=== PATIENT | female | born 1935 | race Two or more races ===

== ENCOUNTER 2019-03-10 09:48 | Inpatient (IN) | payer SELFPAY ==
[2019-03-10] VITALS (17 sets, daily range): BP systolic 72–143; BP diastolic 34–80
[~2019-03-10] VITALS: Ht 152.4 cm; Wt 46.3 kg
[2019-03-10] MEDS ORDERED: Isovue-300 100ml vial INJ PRN (10:00)
--- NOTE | 2019-03-10 10:05 | NUR ---
ED Nurse Note: Pt came in due to upper abd. pain with N/V since this morning after eating a yogurt. Pt is lactose intolerant. Denies diarrhea. AAO x4, ambulates with assist. No respiratory distress. Moaning and restless d/t pain. Family member at the bed side. ER MD aware.
[2019-03-10] MEDS ORDERED: Morphine Sulfate 2mg/ml Inj(IV/IM USE ONLY) IVP ONE ×2 (10:15→10:30)
[2019-03-10 10:19] LABS: HEMATOCRIT 48.4 % (37.0-47.0); HEMOGLOBIN 15.9 G/DL (12.0-16.0); MEAN CORPUSCULAR VOLUME 90 FL (80-99); PLATELET COUNT 254 K/UL (150-450); RED BLOOD COUNT 5.36 M/UL (4.20-5.40); RED CELL DISTRIBUTION WIDTH 13.3 % (11.6-14.8); WHITE BLOOD COUNT 12.7 K/UL (4.8-10.8)
--- NOTE | 2019-03-10 10:26 | NUR ---
ED Nurse Note: Warm blankets provided. Dr Schrader at the bed side.
--- NOTE | 2019-03-10 10:27 | Emergency Room Report ---
History of Present Illness General Chief Complaint: Abdominal Pain Source: Patient, Family Member Present Illness HPI Patient states that she suddenly developed all over abdominal pain and an episode of nausea vomiting this morning around 7:30 AM after eating yogurt. She states that the pain is in her upper abdomen and severe. The pain is constant. She currently has no nausea. She denies chest pain or shortness of breath. She denies dysuria or hematuria. She states that yesterday she was in her normal state of health. She denies previous episodes of abdominal pain. She denies fever or chills. She has no other complaints. Allergies: Coded Allergies: No Known Allergies (Unverified , 03/10/19) Patient History Past Medical History: see triage record, DM, HTN Social History: Denies: smoking, alcohol use, drug use Reviewed Nursing Documentation: PMH: Agreed; PSxH: Agreed Nursing Documentation-PMH Past Medical History: No History, Except For Hx Hypertension: Yes Hx Diabetes: Yes Review of Systems All Other Systems: negative except mentioned in HPI Physical Exam Vital Signs Date Time Temp Pulse Resp B/P (MAP) Pulse Ox O2 Delivery O2 Flow Rate FiO2 03/10/19 09:55 97.7 87 16 125/77 (93) 94 Room Air Sp02 EP Interpretation: reviewed, normal General Appearance: no apparent distress, alert, GCS 15, non-toxic Head: normocephalic, atraumatic Eyes: bilateral eye normal inspection, bilateral eye PERRL ENT: hearing grossly normal, normal pharynx, no angioedema, normal voice Neck: full range of motion, supple/symm/no masses Respiratory: chest non-tender, lungs clear, normal breath sounds, no respiratory distress, no retraction, no accessory muscle use, speaking full sentences Cardiovascular #1: regular rate, rhythm, no edema Gastrointestinal: normal bowel sounds, no pulsatile mass, distended, guarding, rebound, tenderness - TTP diffusely, upper abdomen greater the lower abdomen. Rectal: deferred Musculoskeletal: back normal, gait/station normal, normal range of motion, non- tender Neurologic: alert, oriented x3, responsive, motor strength/tone normal, sensory intact, speech normal Psychiatric: judgement/insight normal, memory normal, mood/affect normal, no suicidal/homicidal ideation Skin: no rash, normal color Medical Decision Making Diagnostic Impression: Primary Impression: Peritonitis Additional Impression: Perforated abdominal viscus ER Course This patient is found to have findings on CT concerning for perforated viscus. Patient has free air in the region of the stomach. Most likely a perforated gastric ulcer. Patient was given broad-spectrum antibiotics and proton pump inhibitors and admitted to the ICU for surgical intervention. This patient is critically ill. This patient required complex medical decision- making, aggressive intervention, extensive laboratory workup and monitoring. Critical care time: 40 minutes. Laboratory Tests Test 03/10/19 10:00 03/10/19 10:05 Urine Color Pending Urine Appearance Pending Urine pH Pending Urine Specific [place] Pending Urine Protein Pending Urine Glucose (UA) Pending Urine Ketones Pending Urine Blood Pending Urine Nitrite Pending Urine Bilirubin Pending Urine Urobilinogen Pending Urine Leukocyte Esterase Pending Troponin I 0.000 ng/mL (0.000-0.056) White Blood Count 12.7 K/UL (4.8-10.8) H Red Blood Count 5.36 M/UL (4.20-5.40) Hemoglobin 15.9 G/DL (12.0-16.0) Hematocrit 48.4 % (37.0-47.0) H Mean Corpuscular Volume 90 FL (80-99) Mean Corpuscular Hemoglobin 29.6 PG (27.0-31.0) Mean Corpuscular Hemoglobin Concent 32.8 G/DL (32.0-36.0) Red Cell Distribution Width 13.3 % (11.6-14.8) Platelet Count 254 K/UL (150-450) Mean Platelet Volume 7.5 FL (6.5-10.1) Neutrophils (%) (Auto) % (45.0-75.0) Lymphocytes (%) (Auto) % (20.0-45.0) Monocytes (%) (Auto) % (1.0-10.0) Eosinophils (%) (Auto) % (0.0-3.0) Basophils (%) (Auto) % (0.0-2.0) Differential Total Cells Counted 100 Neutrophils % (Manual) 62 % (45-75) Lymphocytes % (Manual) 13 % (20-45) L Monocytes % (Manual) 3 % (1-10) Eosinophils % (Manual) 0 % (0-3) Basophils % (Manual) 0 % (0-2) Band Neutrophils 22 % (0-8) H Platelet Estimate Adequate Platelet Morphology Normal Red Blood Cell Morphology Normal Sodium Level 137 MMOL/L (136-145) Potassium Level 3.1 MMOL/L (3.5-5.1) L Chloride Level 94 MMOL/L (98-107) L Carbon Dioxide Level 29 MMOL/L (21-32) Anion Gap 14 mmol/L (5-15) Blood Urea Nitrogen 49 mg/dL (7-18) H Creatinine 1.3 MG/DL (0.55-1.30) Estimate Glomerular Filtration Rate mL/min (>60) Glucose Level 353 MG/DL (74-106) H Calcium Level 9.6 MG/DL (8.5-10.1) Total Bilirubin 0.6 MG/DL (0.2-1.0) Aspartate Amino Transferase (AST) 70 U/L (15-37) H Alanine Aminotransferase (ALT) 94 U/L (12-78) H Alkaline Phosphatase 170 U/L (46-116) H Total Protein 6.7 G/DL (6.4-8.2) Albumin 3.6 G/DL (3.4-5.0) Globulin 3.1 g/dL Albumin/Globulin Ratio 1.2 (1.0-2.7) Lipase 80 U/L (73-393) EKG Diagnostic Results Rate: normal Rhythm: NSR ST Segments: no acute changes Rhythm Strip Diag. Results EP Interpretation: yes Rate: 70's Rhythm: NSR, no PVC's, no ectopy CT/MRI/US Diagnostic Results CT/MRI/US Diagnostic Results : Imaging Test Ordered: CT abd/pelvis Impression mpression: Free intraperitoneal gas. Etiology not completely certain, but gas within and extending from the anterior gastric antral wall is suspicious for a perforated gastric ulcer. Perforated descending colon diverticulitis also possible but deemed much less likely. Free intraperitoneal fluid, presumably related to the above Fatty liver Basilar pulmonary parenchymal groundglass opacities. This could indicate pulmonary edema, among other possibilities Subcentimeter low-attenuation renal lesions, too small to characterize, most likely benign simple cyst. 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
[2019-03-10 10:35] LABS: ANION GAP 14 mmol/L (5-15); BLOOD UREA NITROGEN 49 mg/dL (7-18); CALCIUM 9.6 MG/DL (8.5-10.1); CARBON DIOXIDE 29 MMOL/L (21-32); CHLORIDE 94 MMOL/L (98-107); CREATININE 1.3 MG/DL (0.55-1.30); POTASSIUM 3.1 MMOL/L (3.5-5.1); SODIUM 137 MMOL/L (136-145)
[2019-03-10 10:39] LABS: ALANINE AMINOTRANSFERASE 94 U/L (12-78); ALBUMIN 3.6 G/DL (3.4-5.0); ALBUMIN/GLOBULIN RATIO 1.2 (1.0-2.7); ALKALINE PHOSPHATASE 170 U/L (46-116); ASPARTATE AMINO TRANSFERASE 70 U/L (15-37); BILIRUBIN,TOTAL 0.6 MG/DL (0.2-1.0)
--- NOTE | 2019-03-10 10:58 | NUR ---
ED Nurse Note: Pt unable to urinate at this time. Taken to CT VSS.
--- NOTE | 2019-03-10 11:14 | NUR ---
ED Nurse Note: Pt came back from CT. VSS.
[2019-03-10] MEDS ORDERED: Pantoprazole 80 MG in NS 250 ML IV ONE (11:45)
[2019-03-10] MEDS ORDERED: Pantoprazole Inj IVP ONE (11:45)
[2019-03-10] MEDS ORDERED: Piperacillin/Tazobactam 4.5 GM in NS 110 ML IVPB ONE (11:45)
--- NOTE | 2019-03-10 11:52 | Diagnostic Imaging Report ---
Clinical Indication: Abdominal pain Technique: No oral contrast utilized, per emergency room physician request IV administration nonionic contrast. Venous phase spiral acquisition obtained through the abdomen and pelvis. Multiplanar reconstructions were generated. Total dose length product 550.12 mGycm. CTDIvol(s) 11.42 mGy. Dose reduction achieved using automated exposure control Comparison: none Findings: There is abundant free intraperitoneal gas present. Gas is also seen within the mesenteric root There is also small amount of free intraperitoneal fluid. There is suggestion of a mural defect in the anterior gastric antral wall, and there is gas within the fat immediately adjacent. The duodenum appears unremarkable. There is some infiltration of the perigastric fat. However, there is also infiltration of the pericolonic fat of the ascending colon and there is an ascending colon diverticulum noted. The appendix is normal. No small bowel distention. No loculated fluid collections are evident. The liver is mildly hypoattenuating, consistent with fatty change. No focal abnormality. Gallbladder, bile ducts, pancreas, spleen, adrenals are unremarkable. The kidneys demonstrate multiple subcentimeter low-attenuation lesions which are too small to characterize. No renal or ureteral calculi, hydronephrosis, or hydroureter. No retroperitoneal or mesenteric mass or adenopathy. No pelvic mass or adenopathy. Uterus and adnexal structures appear unremarkable. There is a left hip prosthesis. This results in streak artifact which could obscure pathology in the region. The included lung bases demonstrate groundglass opacities as well as some atelectatic changes. A calcified granuloma is seen in the left costophrenic sulcus. The bones are unremarkable except for degenerative spondylosis changes. Impression: Free intraperitoneal gas. Etiology not completely certain, but gas within and extending from the anterior gastric antral wall is suspicious for a perforated gastric ulcer. Perforated descending colon diverticulitis also possible but deemed much less likely. Free intraperitoneal fluid, presumably related to the above Fatty liver Basilar pulmonary parenchymal groundglass opacities. This could indicate pulmonary edema, among other possibilities Subcentimeter low-attenuation renal lesions, too small to characterize, most likely benign simple cyst. 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 Reyes at the time of interpretation The CT scanner at [facility] is accredited by the [employer] and the scans are performed using protocols designed to limit radiation exposure to as low as reasonably achievable to attain images of sufficient resolution adequate for diagnostic evaluation.
[2019-03-10 12:35] LABS: APPEARANCE,URINE CLEAR; BILIRUBIN, URINE NEGATIVE (NEGATIVE); COLOR,URINE PALE YELLOW; GLUCOSE, URINE (UA) 4+ (NEGATIVE); KETONES,URINE NEGATIVE (NEGATIVE); LEUKOCYTE ESTERASE ,URINE NEGATIVE (NEGATIVE); NITRITE,URINE NEGATIVE (NEGATIVE); PH,URINE 5 (4.5-8.0); PROTEIN,URINE 1+ (NEGATIVE); UROBILINOGEN,URINE NORMAL MG/DL (0.0-1.0)
[2019-03-10] MEDS ORDERED: Bacitracin 50000 Units Vial ONE ×2 (12:51→17:16)
[2019-03-10] MEDS ORDERED: NeoSporin Gu Irrig 1ml Amp IRRIG ONE (12:51)
[2019-03-10] MEDS ORDERED: Rocuronium Bromide 50mg/5ml Inj IV ONE (12:53)
[2019-03-10] MEDS ORDERED: LR 1000ml 1,000 ML IVLG SCH (12:57)
--- NOTE | 2019-03-10 12:59 | Anethesia Preoperative Eval ---
Anesthesia Pre-op PMH/ROS General Date of Evaluation: Mar 10, 2019 Time of Evaluation: 14:11 Anesthesiologist: Haider ASA Score: ASA 3 - Emergency Mallampati Score Class I : Soft palate, uvula, fauces, pillars visible Class II: Soft palate, uvula, fauces visible Class III: Soft palate, base of uvula visible Class IV: Only hard plate visible Mallampati Classification: Class II Surgeon: Domenic Diagnosis: Perforated Viscus Surgical Procedure: Exploratory Laparotomy, Repair Viscus Anesthesia History: none Family History: no anesthesia problems Allergies: Coded Allergies: No Known Allergies (Unverified , 03/10/19) Medications: see eMAR Patient NPO?: Yes Past Medical History Cardiovascular: Reports: HTN Gastrointestinal/Genitourinary: Reports: other - Fatty Liver Endocrine: Reports: DM Anesthesia Pre-op Phys. Exam Physician Exam Last Vital Signs Date Time Temp Pulse Resp B/P (MAP) Pulse Ox O2 Delivery O2 Flow Rate FiO2 03/10/19 10:39 97.7 03/10/19 10:01 77 21 143/77 94 Room Air Constitutional: NAD Neurologic: CN 2-12 intact Cardiovascular: RRR Respiratory: CTA Gastrointestinal: S/NT/ND Airway Exam Mallampati Score: Class II MO: limited ROM: limited Teeth: missing, intact Anesthesia Pre-op A/P Labs Hematology Test 03/10/19 10:05 White Blood Count 12.7 K/UL (4.8-10.8) H Red Blood Count 5.36 M/UL (4.20-5.40) Hemoglobin 15.9 G/DL (12.0-16.0) Hematocrit 48.4 % (37.0-47.0) H Mean Corpuscular Volume 90 FL (80-99) Mean Corpuscular Hemoglobin 29.6 PG (27.0-31.0) Mean Corpuscular Hemoglobin Concent 32.8 G/DL (32.0-36.0) Red Cell Distribution Width 13.3 % (11.6-14.8) Platelet Count 254 K/UL (150-450) Mean Platelet Volume 7.5 FL (6.5-10.1) Neutrophils (%) (Auto) % (45.0-75.0) Lymphocytes (%) (Auto) % (20.0-45.0) Monocytes (%) (Auto) % (1.0-10.0) Eosinophils (%) (Auto) % (0.0-3.0) Basophils (%) (Auto) % (0.0-2.0) Differential Total Cells Counted 100 Neutrophils % (Manual) 62 % (45-75) Lymphocytes % (Manual) 13 % (20-45) L Monocytes % (Manual) 3 % (1-10) Eosinophils % (Manual) 0 % (0-3) Basophils % (Manual) 0 % (0-2) Band Neutrophils 22 % (0-8) H Platelet Estimate Adequate Platelet Morphology Normal Red Blood Cell Morphology Normal Chemistry Test 03/10/19 10:00 03/10/19 10:05 Troponin I 0.000 ng/mL (0.000-0.056) Sodium Level 137 MMOL/L (136-145) Potassium Level 3.1 MMOL/L (3.5-5.1) L Chloride Level 94 MMOL/L (98-107) L Carbon Dioxide Level 29 MMOL/L (21-32) Anion Gap 14 mmol/L (5-15) Blood Urea Nitrogen 49 mg/dL (7-18) H Creatinine 1.3 MG/DL (0.55-1.30) Estimat Glomerular Filtration Rate mL/min (>60) Glucose Level 353 MG/DL (74-106) H Calcium Level 9.6 MG/DL (8.5-10.1) Total Bilirubin 0.6 MG/DL (0.2-1.0) Aspartate Amino Transf (AST/SGOT) 70 U/L (15-37) H Alanine Aminotransferase (ALT/SGPT) 94 U/L (12-78) H Alkaline Phosphatase 170 U/L (46-116) H Total Protein 6.7 G/DL (6.4-8.2) Albumin 3.6 G/DL (3.4-5.0) Globulin 3.1 g/dL Albumin/Globulin Ratio 1.2 (1.0-2.7) Lipase 80 U/L (73-393) Risk Assessment & Plan Assessment: ASA 3E Plan: GA, SED, GlideScope Go Status Change Before Surgery: No Pre-Antibiotics Dru Gram Ancef IV Given Within 1 Hr of Incision: Yes Time Given: 14:31 Austyn Maloney MD Mar 10, 2019 12:59
[2019-03-10] MEDS ORDERED: LORazepam Inj 2mg/ml 1ml IV PRN (13:00)
[2019-03-10] MEDS ORDERED: fentaNYL 100 mcg/2 mL IV PRN (13:00)
[2019-03-10] MEDS ORDERED: Meperidine 50mg/ml Inj(FOR RIGORS ONLY) IVP PRN (13:00)
[2019-03-10] MEDS ORDERED: oxyCODONE HCL/Acetaminophen 5/325mg ORAL PRN (13:00)
[2019-03-10] MEDS ORDERED: Labetalol 5mg/ml 20ml vial IV PRN (13:00)
[2019-03-10] MEDS ORDERED: Atropine Sulfate 0.4mg/ml inj IVP PRN (13:00)
[2019-03-10] MEDS ORDERED: HYDROcodone/Acetamin 7.5/325 tab ORAL PRN (13:00)
[2019-03-10] MEDS ORDERED: Acetaminophen (Non formulary) 100 ML IV ONE (13:00)
[2019-03-10] MEDS ORDERED: Midazolam 2mg/2ml Inj IVP PRN (13:00)
[2019-03-10] MEDS ORDERED: Metoclopramide 10mg/2ml Inj IVP PRN (13:00)
[2019-03-10] MEDS ORDERED: DiphenhydrAMINE 50mg/ml Inj IVP PRN (13:00)
[2019-03-10] MEDS ORDERED: HYDROcodone/Acetamin 5/325 tab ORAL PRN (13:00)
[2019-03-10] MEDS ORDERED: Ketorolac 30mg Inj IV PRN ×2 (13:00)
[2019-03-10] MEDS ORDERED: Hydromorphone 0.5mg/0.5ml inj IVP PRN (13:00)
[2019-03-10] MEDS ORDERED: Morphine Sulfate 4mg/ml Inj (IV USE ONLY) IVP ONE (13:15)
[2019-03-10] MEDS ORDERED: Miralax 17gm pkt ORAL PRN (13:15)
[2019-03-10] MEDS ORDERED: Albuterol/Ipratropium 3ml neb HHN PRN (13:15)
--- NOTE | 2019-03-10 13:15 | NUR ---
ED Nurse Note: Pt's family aware of hospital admission. Son took all belongings including pt's earrings.
[2019-03-10] MEDS ORDERED: Lidocaine 1% Plain 30 ml INJ ONE (13:17)
[2019-03-10] MEDS ORDERED: Lidocaine 1% MPF 10mg/ml 5ml ONE (13:17)
[2019-03-10] MEDS ORDERED: Sodium Chloride 10ml vial INJ ONE (13:17)
[2019-03-10] MEDS ORDERED: fentaNYL 100 mcg/2 mL IV ONE (13:24)
[2019-03-10] MEDS ORDERED: Midazolam 2mg/2ml Inj ONE (13:25)
--- NOTE | 2019-03-10 13:25 | Pulmonolgy Critical Care Note ---
Critical Care - Asmt/Plan Problems: (1) Septic shock (2) Perforated abdominal viscus Respiratory: adjust tidal volume, adjust FIO2, CXR, ABG Cardiac: stop pressors, continue to monitor HR/BP Renal: keep IV fluid, check electrolytes Infectious Disease: continue antibiotics Gastrointestinal: continue feedings/current rate, hold feedings Endocrine: monitor blood sugar, continue sliding scale insulin Hematologic: monitor H/H, transfuse if hgb<8.5 Neurologic: PRN Ativan, keep patient comfortable Prophylaxis: Protonix Notes Reviewed: cardio Discussed with: nurses, consultants, child welfare caseworkermanager distribution center - Objective Last 24 Hour Vital Signs Date Time Temp Pulse Resp B/P (MAP) Pulse Ox O2 Delivery O2 Flow Rate FiO2 03/10/19 10:39 97.7 03/10/19 10:01 97.7 77 21 143/77 94 Room Air 03/10/19 09:57 77 21 Room Air 03/10/19 09:55 97.7 87 16 125/77 (93) 94 Room Air Status: awake Condition: critical Lungs: chest wall tender Heart: HR/BP unstable Abdomen: soft, active bowel sounds Extremities: no C/C/E Critical Care - Subjective ROS Limited/Unobtainable: Yes Interval Events: 84 year old female presented to ER with CC of abdominal pain and was found to have perforated viscous with free air in abdominal cavity. Condition: critical Labs: Laboratory Tests Test 03/10/19 10:00 03/10/19 10:05 Urine Color Pale yellow Urine Appearance Clear Urine pH 5 (4.5-8.0) Urine Specific [place] 1.010 (1.005-1.035) Urine Protein 1+ (NEGATIVE) H Urine Glucose (UA) 4+ (NEGATIVE) H Urine Ketones Negative (NEGATIVE) Urine Blood Negative (NEGATIVE) Urine Nitrite Negative (NEGATIVE) Urine Bilirubin Negative (NEGATIVE) Urine Urobilinogen Normal MG/DL (0.0-1.0) Urine Leukocyte Esterase Negative (NEGATIVE) Urine RBC 0 /HPF (0 - 2) Urine WBC 0-2 /HPF (0 - 2) Urine Squamous Epithelial Cells None /LPF (NONE/OCC) Urine Bacteria None /HPF (NONE) Urine Hyaline Casts 0-2 /LPF (NONE) H Troponin I 0.000 ng/mL (0.000-0.056) White Blood Count 12.7 K/UL (4.8-10.8) H Red Blood Count 5.36 M/UL (4.20-5.40) Hemoglobin 15.9 G/DL (12.0-16.0) Hematocrit 48.4 % (37.0-47.0) H Mean Corpuscular Volume 90 FL (80-99) Mean Corpuscular Hemoglobin 29.6 PG (27.0-31.0) Mean Corpuscular Hemoglobin Concent 32.8 G/DL (32.0-36.0) Red Cell Distribution Width 13.3 % (11.6-14.8) Platelet Count 254 K/UL (150-450) Mean Platelet Volume 7.5 FL (6.5-10.1) Neutrophils (%) (Auto) % (45.0-75.0) Lymphocytes (%) (Auto) % (20.0-45.0) Monocytes (%) (Auto) % (1.0-10.0) Eosinophils (%) (Auto) % (0.0-3.0) Basophils (%) (Auto) % (0.0-2.0) Differential Total Cells Counted 100 Neutrophils % (Manual) 62 % (45-75) Lymphocytes % (Manual) 13 % (20-45) L Monocytes % (Manual) 3 % (1-10) Eosinophils % (Manual) 0 % (0-3) Basophils % (Manual) 0 % (0-2) Band Neutrophils 22 % (0-8) H Platelet Estimate Adequate Platelet Morphology Normal Red Blood Cell Morphology Normal Sodium Level 137 MMOL/L (136-145) Potassium Level 3.1 MMOL/L (3.5-5.1) L Chloride Level 94 MMOL/L (98-107) L Carbon Dioxide Level 29 MMOL/L (21-32) Anion Gap 14 mmol/L (5-15) Blood Urea Nitrogen 49 mg/dL (7-18) H Creatinine 1.3 MG/DL (0.55-1.30) Estimat Glomerular Filtration Rate mL/min (>60) Glucose Level 353 MG/DL (74-106) H Calcium Level 9.6 MG/DL (8.5-10.1) Total Bilirubin 0.6 MG/DL (0.2-1.0) Aspartate Amino Transf (AST/SGOT) 70 U/L (15-37) H Alanine Aminotransferase (ALT/SGPT) 94 U/L (12-78) H Alkaline Phosphatase 170 U/L (46-116) H Total Protein 6.7 G/DL (6.4-8.2) Albumin 3.6 G/DL (3.4-5.0) Globulin 3.1 g/dL Albumin/Globulin Ratio 1.2 (1.0-2.7) Lipase 80 U/L (73-393) Bibiana Pennington MD Mar 10, 2019 13:25
[2019-03-10] MEDS ORDERED: Amikacin Rx to dose MISC PRN (13:30)
--- NOTE | 2019-03-10 13:33 | NUR ---
ED Nurse Note: Tried to call Report to ICU. Spoke to Pat and states that Andrea receiving RN unavailable at this time. ER charge nurse notified.
--- NOTE | 2019-03-10 13:37 | Immediate Post-Op Evaluation ---
Immediate Post-Op Evalulation Immediate Post-Op Evalulation Procedure: Exploratory Laparotomy, Repair Viscus Date of Evaluation: Mar 10, 2019 Time of Evaluation: 16:52 IV Fluids: 400 LR Blood Products: 500 Albumin Estimated Blood Loss: 75 Urinary Output: 0 Blood Pressure Systolic: 102 Blood Pressure Diastolic: 53 Pulse Rate: 89 Respiratory Rate: 12 - Vent O2 Sat by Pulse Oximetry: 100 Temperature (Fahrenheit): 97.6 Pain Score (1-10): 0 Nausea: No Vomiting: No Complications 0 Patient Status: reacts, no response, patent, ventilated, none Hydration Status: adequate Dru Gram Ancef IV Given Within 1 Hr of Incision: Yes Time Given: 14:31 Austyn Maloney MD Mar 10, 2019 13:37
--- NOTE | 2019-03-10 13:52 | NUR ---
ED Nurse Note: Report given to Grant MOON of OR. Son notified of pt's surgery.
[2019-03-10] MEDS ORDERED: LR 1000ml ONE (14:00)
[2019-03-10] MEDS ORDERED: Propofol 1,000mg/ 100ml btl IV ONE (14:00)
--- NOTE | 2019-03-10 14:21 | Pre-Procedure Note/Attestation ---
Pre-Procedure Note/Attestation Complete Prior to Procedure Planned Procedure: not applicable Procedure Narrative: exploratory laparotomy, possible bowel resection, possible ostomy Indications for Procedure Pre-Operative Diagnosis: perforated abdominal viscus Attestation I attest that I discussed the nature of the procedure; its benefits; risks and complications; and alternatives (and the risks and benefits of such alternatives ), prior to the procedure, with the patient (or the patient's legal home office representative). I attest that, if there was a reasonable possibility of needing a blood transfusion, the patient (or the patient's legal home office representative) was given the [facility] standardized written summary, pursuant to the [place] Blood Safety Act ([place] Health and Safety Code # 1645, as amended). I attest that I re-evaluated the patient just prior to the surgery and that there has been no change in the patient's H&P, except as documented below: Mike Sheth Mar 10, 2019 14:21
--- NOTE | 2019-03-10 14:24 | Consultation ---
History of Present Illness General Date patient seen: Mar 10, 2019 Reason for Hospitalization: Abdominal Pain Present Illness HPI 84F multiple medical comorbidities presented to ED with complaints of acute abdominal pain starting this morning with n/v. multiple medical comorbidities. prior has had abd discomfort for years but mild and intermittent. now with acute 10/[address] with perforated viscus. surgery called. patient seen in ED. plan for OR Allergies: Coded Allergies: No Known Allergies (Unverified , 03/10/19) Medication History Unable to Obtain Active Prescriptions or Reported Meds Patient History History Provided By: Patient, Family Member, Medical Record, PMD Healthcare decision maker Resuscitation status Advanced Directive on File Past Medical/Surgical History Past Medical/Surgical History: (1) Peritonitis (2) Perforated abdominal viscus Review of Systems Review of Symptoms General ROS: no weight loss or fever Psychological ROS: no depression or mood changes, no memory loss Ophthalmic ROS: no visual changes or eye irritation ENT ROS: no nasal congestion, hearing loss, dizziness Allergy and Immunology ROS: no allergic symptoms or urticaria Hematological and Lymphatic ROS: no swollen glands, unusual bleeding or bruising Endocrine ROS: no polyuria, polydipsia, weight changes, temperature intolerance Respiratory ROS: no cough, shortness of breath, or wheezing Cardiovascular ROS: no chest pain or dyspnea on exertion Gastrointestinal ROS: abdominal pain, no bright red blood in stool. Musculoskeletal ROS: no myalgias or arthralgias Neurological ROS: no TIA or stroke symptoms Dermatological ROS: no new or changing skin lesions, rashes or pruritis Physical Exam Physical Exam General appearance: alert, cooperative, no distress, appears stated age Head: Normocephalic, without obvious abnormality, atraumatic Eyes: conjunctivae/corneas clear. PERRL, EOM's intact. Fundi benign Throat: Lips, mucosa, and tongue normal. Teeth and gums normal Neck: supple, symmetrical, trachea midline, no adenopathy, thyroid: not enlarged, symmetric, no tenderness/mass/nodules, no carotid bruit and no JVD Lungs: clear to auscultation bilaterally Heart: regular rate and rhythm, S1, S2 normal, no murmur, click, rub or gallop Abdomen: soft, peritonitis with tender. Bowel sounds normal. No masses, no organomegaly Extremities: extremities normal, atraumatic, no cyanosis or edema Pulses: 2+ and symmetric Skin: Skin color, texture, turgor normal. No rashes or lesions Neurologic: Grossly normal Last 24 Hour Vital Signs Date Time Temp Pulse Resp B/P (MAP) Pulse Ox O2 Delivery O2 Flow Rate FiO2 03/10/19 14:05 98.4 81 20 135/70 95 Nasal Cannula 2.0 03/10/19 13:00 97.8 88 23 137/66 94 Nasal Cannula 2.0 03/10/19 12:00 97.7 87 17 139/80 95 Nasal Cannula 2.0 03/10/19 11:05 98.0 85 16 122/70 97 Nasal Cannula 2.0 03/10/19 10:55 98.4 03/10/19 10:55 98.4 03/10/19 10:39 97.7 03/10/19 10:01 97.7 77 21 143/77 94 Room Air 03/10/19 09:57 77 21 Room Air 03/10/19 09:55 97.7 87 16 125/77 (93) 94 Room Air Laboratory Tests Test 03/10/19 10:00 03/10/19 10:05 Urine Color Pale yellow Urine Appearance Clear Urine pH 5 (4.5-8.0) Urine Specific [place] 1.010 (1.005-1.035) Urine Protein 1+ (NEGATIVE) H Urine Glucose (UA) 4+ (NEGATIVE) H Urine Ketones Negative (NEGATIVE) Urine Blood Negative (NEGATIVE) Urine Nitrite Negative (NEGATIVE) Urine Bilirubin Negative (NEGATIVE) Urine Urobilinogen Normal MG/DL (0.0-1.0) Urine Leukocyte Esterase Negative (NEGATIVE) Urine RBC 0 /HPF (0 - 2) Urine WBC 0-2 /HPF (0 - 2) Urine Squamous Epithelial Cells None /LPF (NONE/OCC) Urine Bacteria None /HPF (NONE) Urine Hyaline Casts 0-2 /LPF (NONE) H Troponin I 0.000 ng/mL (0.000-0.056) White Blood Count 12.7 K/UL (4.8-10.8) H Red Blood Count 5.36 M/UL (4.20-5.40) Hemoglobin 15.9 G/DL (12.0-16.0) Hematocrit 48.4 % (37.0-47.0) H Mean Corpuscular Volume 90 FL (80-99) Mean Corpuscular Hemoglobin 29.6 PG (27.0-31.0) Mean Corpuscular Hemoglobin Concent 32.8 G/DL (32.0-36.0) Red Cell Distribution Width 13.3 % (11.6-14.8) Platelet Count 254 K/UL (150-450) Mean Platelet Volume 7.5 FL (6.5-10.1) Neutrophils (%) (Auto) % (45.0-75.0) Lymphocytes (%) (Auto) % (20.0-45.0) Monocytes (%) (Auto) % (1.0-10.0) Eosinophils (%) (Auto) % (0.0-3.0) Basophils (%) (Auto) % (0.0-2.0) Differential Total Cells Counted 100 Neutrophils % (Manual) 62 % (45-75) Lymphocytes % (Manual) 13 % (20-45) L Monocytes % (Manual) 3 % (1-10) Eosinophils % (Manual) 0 % (0-3) Basophils % (Manual) 0 % (0-2) Band Neutrophils 22 % (0-8) H Platelet Estimate Adequate Platelet Morphology Normal Red Blood Cell Morphology Normal Sodium Level 137 MMOL/L (136-145) Potassium Level 3.1 MMOL/L (3.5-5.1) L Chloride Level 94 MMOL/L (98-107) L Carbon Dioxide Level 29 MMOL/L (21-32) Anion Gap 14 mmol/L (5-15) Blood Urea Nitrogen 49 mg/dL (7-18) H Creatinine 1.3 MG/DL (0.55-1.30) Estimat Glomerular Filtration Rate mL/min (>60) Glucose Level 353 MG/DL (74-106) H Calcium Level 9.6 MG/DL (8.5-10.1) Total Bilirubin 0.6 MG/DL (0.2-1.0) Aspartate Amino Transf (AST/SGOT) 70 U/L (15-37) H Alanine Aminotransferase (ALT/SGPT) 94 U/L (12-78) H Alkaline Phosphatase 170 U/L (46-116) H Total Protein 6.7 G/DL (6.4-8.2) Albumin 3.6 G/DL (3.4-5.0) Globulin 3.1 g/dL Albumin/Globulin Ratio 1.2 (1.0-2.7) Lipase 80 U/L (73-393) Microbiology Date/Time Source Procedure Growth Status 03/10/19 13:00 Rectum Received Height (Feet): 5 Weight (Pounds): 120 Medications Current Medications Medications (Trade) Dose Ordered Sig/Shantelle Route PRN Reason Start Time Stop Time Status Last Admin Dose Admin Acetaminophen (Tylenol) 650 mg Q4H PRN ORAL fever 03/10/19 13:15 04/09/19 13:14 Acetaminophen/ Hydrocodone Bitart ([place] 5/325) 1 tab Q1H PRN ORAL Mild Pain (Pain Scale 1-3) 03/10/19 13:00 03/10/19 21:00 Acetaminophen/ Hydrocodone Bitart ([place] 7.5/325) 1 tab Q1H PRN ORAL Moderate Pain (Pain Scale 4-6) 03/10/19 13:00 03/10/19 21:00 Al Hydroxide/Mg Hydroxide (Mylanta) 15 ml Q1H PRN ORAL gi upset 03/10/19 13:00 03/10/19 21:00 Albuterol/ Ipratropium (Albuterol/ Ipratropium) 3 ml Q4H PRN HHN Shortness of Breath 03/10/19 13:15 03/15/19 13:14 Amikacin Protocol (Amikacin pharmacy to dose) 1 ea DAILY PRN MISC . 03/10/19 13:30 04/09/19 13:29 Amikacin Sulfate 400 mg/Sodium Chloride 111.6 ml @ 111.6 mls/ hr Q24H IV 03/11/19 01:00 03/18/19 00:59 Atropine Sulfate (Atropine 0.4mg/ ml) 0.5 mg Q5M PRN IVP HR<40 03/10/19 13:00 03/10/19 21:00 Diphenhydramine HCl (Benadryl) 25 mg Q15M PRN IVP Itching 03/10/19 13:00 03/10/19 21:00 Ertapenem 0.5 gm/ Sodium Chloride 55 ml @ 110 mls/hr Q24H IV 03/10/19 21:00 03/15/19 20:59 Fentanyl Citrate (Sublimaze 100 mcg/2 mL) 25 mcg Q10M PRN IV Moderate Pain (Pain Scale 4-6) 03/10/19 13:00 03/10/19 21:00 Heparin Sodium (Porcine) (Heparin 5000 units/ml) 5,000 units EVERY 12 HOURS SUBQ 03/10/19 21:00 04/09/19 20:59 Hydralazine HCl (Apresoline) 5 mg Q30M PRN IV SBP>160 / DBP>90 03/10/19 13:00 03/10/19 21:00 Hydromorphone HCl (Dilaudid) 0.5 mg Q15M PRN IVP Severe Pain (Pain Scale 7-10) 03/10/19 13:00 03/10/19 21:00 Iopamidol (Isovue-300 100ml) 100 ml NOW PRN INJ Radiology Procedure 03/10/19 10:00 Ketorolac Tromethamine (Toradol 30mg) 15 mg Q1H PRN IV Moderate Breakthru Pain (5-7) 03/10/19 13:00 03/10/19 21:00 Ketorolac Tromethamine (Toradol 30mg) 30 mg Q1H PRN IV Severe Breakthru Pain (>7) 03/10/19 13:00 03/10/19 21:00 Labetalol HCl (Normodyne) 5 mg Q10M PRN IV SBP>160 / DBP>90 03/10/19 13:00 03/10/19 21:00 Lactated Ringer's 1,000 ml @ 10 mls/hr Q24H IVLG 03/10/19 12:57 03/10/19 14:56 Lorazepam (Ativan 2mg/ml 1ml) 1 mg Q15M PRN IV For Anxiety 03/10/19 13:00 03/10/19 21:00 Meperidine HCl (Demerol) 25 mg Q5M PRN IVP Shivering.May repeat x 1 03/10/19 13:00 03/10/19 21:00 Metoclopramide HCl (Reglan) 10 mg Q1H PRN IVP Nausea & Vomiting 03/10/19 13:00 03/10/19 21:00 Midazolam HCl (Versed 2mg/2ml vial) 1 mg Q15M PRN IVP For Anxiety 03/10/19 13:00 03/10/19 21:00 Morphine Sulfate (Morphine Sulfate) 2 mg Q4H PRN IVP Severe Pain (Pain Scale 7-10) 03/10/19 13:15 03/17/19 13:14 Norepinephrine Bitartrate 4 mg/ Dextrose 254 ml @ 0 mls/hr Q24H IV 03/10/19 13:09 04/09/19 13:08 Ondansetron HCl (Zofran) 4 mg Q1H PRN IVP Nausea & Vomiting 03/10/19 13:00 03/10/19 21:00 Ondansetron HCl (Zofran) 4 mg Q6H PRN IVP Nausea & Vomiting 03/10/19 13:15 04/09/19 13:14 Oxycodone/ Acetaminophen (Percocet 5-325) 1 tab Q1H PRN ORAL Severe Pain (Pain Scale 7-10) 03/10/19 13:00 03/10/19 21:00 Pantoprazole (Protonix) 40 mg DAILY IVP 03/11/19 09:00 04/10/19 08:59 Pantoprazole 80 mg/Sodium Chloride 250 ml @ 25 mls/hr Q10H ONCE IV 03/10/19 11:45 03/10/19 21:44 03/10/19 11:58 Polyethylene Glycol (Miralax) 17 gm DAILYPRN PRN ORAL Constipation 03/10/19 13:15 04/09/19 13:14 Sodium Chloride 1,000 ml @ 100 mls/hr Q10H IVLG 03/10/19 13:16 04/09/19 13:15 Vancomycin HCl (Vanco rx to dose) 1 ea DAILY PRN MISC . 03/10/19 13:30 04/09/19 13:29 Vancomycin HCl 500 mg/Dextrose 110 ml @ 110 mls/hr Q24H IVPB 03/10/19 23:00 03/15/19 22:59 Assessment/Plan Problem List: (1) Peritonitis Assessment & Plan: 84F with perforated abdominal viscus likely gastric perforation based on CT findings labs as above exam with generalized abdominal peritonitis. npo iv fluids iv ABX to OR for exploration and repair discussed all findings and surgical plan with patient, sons, team. given age has high risk for surgery and comorbidities. full code as per family consent thank you ICD Codes: K65.9 - Peritonitis, unspecified SNOMED: 53914236 (2) Perforated abdominal viscus SNOMED: [id number] Mike Sheth Mar 10, 2019 14:24
[2019-03-10] MEDS ORDERED: NS Irrig 1000ml IRRIG ONE (15:07)
[2019-03-10] MEDS ORDERED: NS Irrig 4000ml IRRIG ONE (15:07)
[2019-03-10] MEDS ORDERED: Neostigmine 1mg/ml 10ml Inj ONE (15:13)
[2019-03-10] MEDS ORDERED: Glycopyrrolate 0.2mg/ml 1ml Vial ONE (15:13)
[2019-03-10] MEDS ORDERED: Flumazenil 0.1mg/ml 5ml Inj IV ONE (16:14)
--- NOTE | 2019-03-10 17:00 | Consultation ---
History of Present Illness General Date patient seen: Mar 10, 2019 Chief Complaint: Abdominal Pain Present Illness HPI 84 y/o F with hx of Dm2, HTN presented to ED on 03/10 with acute upper abdominal pain associated with nausea and vomiting. CT showed perforated viscus and patient was taken to OR. Denied CP, SOB, dysuria, hematuria, f/c upon admission. Allergies: Coded Allergies: No Known Allergies (Unverified , 03/10/19) Medication History Unable to Obtain Active Prescriptions or Reported Meds Patient History Healthcare decision maker Resuscitation status Advanced Directive on File Patient History Narrative Pmhx: as above Shx: Denies: smoking, alcohol use, drug use Fhx: non contributory Review of Systems All Other Systems: negative except mentioned in HPI Physical Exam Physical Exam Narrative General appearance: alert, cooperative, no distress, appears stated age Head: Normocephalic, without obvious abnormality, atraumatic Eyes: conjunctivae/corneas clear. PERRL, EOM's intact. Fundi benign Throat: Lips, mucosa, and tongue normal. Teeth and gums normal Neck: supple, symmetrical, trachea midline, no adenopathy, thyroid: not enlarged, symmetric, no tenderness/mass/nodules, no carotid bruit and no JVD Lungs: clear to auscultation bilaterally Heart: regular rate and rhythm, S1, S2 normal, no murmur, click, rub or gallop Abdomen: soft, peritonitis with tender. Bowel sounds normal. No masses, no organomegaly Extremities: extremities normal, atraumatic, no cyanosis or edema Pulses: 2+ and symmetric Skin: Skin color, texture, turgor normal. No rashes or lesions Neurologic: Grossly normal Last 24 Hour Vital Signs Date Time Temp Pulse Resp B/P (MAP) Pulse Ox O2 Delivery O2 Flow Rate FiO2 03/10/19 16:42 89 12 100 03/10/19 16:41 82 12 98 Mechanical Ventilator 40 03/10/19 16:36 83 12 40 03/10/19 14:05 98.4 81 20 135/70 95 Nasal Cannula 2.0 03/10/19 13:00 97.8 88 23 137/66 94 Nasal Cannula 2.0 03/10/19 12:00 97.7 87 17 139/80 95 Nasal Cannula 2.0 03/10/19 11:05 98.0 85 16 122/70 97 Nasal Cannula 2.0 03/10/19 10:55 98.4 03/10/19 10:55 98.4 03/10/19 10:39 97.7 03/10/19 10:01 97.7 77 21 143/77 94 Room Air 03/10/19 09:57 77 21 Room Air 03/10/19 09:55 97.7 87 16 125/77 (93) 94 Room Air Laboratory Tests Test 03/10/19 10:00 03/10/19 10:05 Urine Color Pale yellow Urine Appearance Clear Urine pH 5 (4.5-8.0) Urine Specific [place] 1.010 (1.005-1.035) Urine Protein 1+ (NEGATIVE) H Urine Glucose (UA) 4+ (NEGATIVE) H Urine Ketones Negative (NEGATIVE) Urine Blood Negative (NEGATIVE) Urine Nitrite Negative (NEGATIVE) Urine Bilirubin Negative (NEGATIVE) Urine Urobilinogen Normal MG/DL (0.0-1.0) Urine Leukocyte Esterase Negative (NEGATIVE) Urine RBC 0 /HPF (0 - 2) Urine WBC 0-2 /HPF (0 - 2) Urine Squamous Epithelial Cells None /LPF (NONE/OCC) Urine Bacteria None /HPF (NONE) Urine Hyaline Casts 0-2 /LPF (NONE) H Troponin I 0.000 ng/mL (0.000-0.056) White Blood Count 12.7 K/UL (4.8-10.8) H Red Blood Count 5.36 M/UL (4.20-5.40) Hemoglobin 15.9 G/DL (12.0-16.0) Hematocrit 48.4 % (37.0-47.0) H Mean Corpuscular Volume 90 FL (80-99) Mean Corpuscular Hemoglobin 29.6 PG (27.0-31.0) Mean Corpuscular Hemoglobin Concent 32.8 G/DL (32.0-36.0) Red Cell Distribution Width 13.3 % (11.6-14.8) Platelet Count 254 K/UL (150-450) Mean Platelet Volume 7.5 FL (6.5-10.1) Neutrophils (%) (Auto) % (45.0-75.0) Lymphocytes (%) (Auto) % (20.0-45.0) Monocytes (%) (Auto) % (1.0-10.0) Eosinophils (%) (Auto) % (0.0-3.0) Basophils (%) (Auto) % (0.0-2.0) Differential Total Cells Counted 100 Neutrophils % (Manual) 62 % (45-75) Lymphocytes % (Manual) 13 % (20-45) L Monocytes % (Manual) 3 % (1-10) Eosinophils % (Manual) 0 % (0-3) Basophils % (Manual) 0 % (0-2) Band Neutrophils 22 % (0-8) H Platelet Estimate Adequate Platelet Morphology Normal Red Blood Cell Morphology Normal Sodium Level 137 MMOL/L (136-145) Potassium Level 3.1 MMOL/L (3.5-5.1) L Chloride Level 94 MMOL/L (98-107) L Carbon Dioxide Level 29 MMOL/L (21-32) Anion Gap 14 mmol/L (5-15) Blood Urea Nitrogen 49 mg/dL (7-18) H Creatinine 1.3 MG/DL (0.55-1.30) Estimat Glomerular Filtration Rate mL/min (>60) Glucose Level 353 MG/DL (74-106) H Calcium Level 9.6 MG/DL (8.5-10.1) Total Bilirubin 0.6 MG/DL (0.2-1.0) Aspartate Amino Transf (AST/SGOT) 70 U/L (15-37) H Alanine Aminotransferase (ALT/SGPT) 94 U/L (12-78) H Alkaline Phosphatase 170 U/L (46-116) H Total Protein 6.7 G/DL (6.4-8.2) Albumin 3.6 G/DL (3.4-5.0) Globulin 3.1 g/dL Albumin/Globulin Ratio 1.2 (1.0-2.7) Lipase 80 U/L (73-393) Microbiology Date/Time Source Procedure Growth Status 03/10/19 13:00 Rectum Received Height (Feet): 5 Height (Inches): 0.00 Weight (Pounds): 120 Medications Current Medications Medications (Trade) Dose Ordered Sig/Shantelle Route PRN Reason Start Time Stop Time Status Last Admin Dose Admin Acetaminophen (Tylenol) 650 mg Q4H PRN ORAL fever 03/10/19 13:15 04/09/19 13:14 Acetaminophen/ Hydrocodone Bitart ([place] 5/325) 1 tab Q1H PRN ORAL Mild Pain (Pain Scale 1-3) 03/10/19 13:00 03/10/19 21:00 Acetaminophen/ Hydrocodone Bitart ([place] 7.5/325) 1 tab Q1H PRN ORAL Moderate Pain (Pain Scale 4-6) 03/10/19 13:00 03/10/19 21:00 Al Hydroxide/Mg Hydroxide (Mylanta) 15 ml Q1H PRN ORAL gi upset 03/10/19 13:00 03/10/19 21:00 Albuterol/ Ipratropium (Albuterol/ Ipratropium) 3 ml Q4H PRN HHN Shortness of Breath 03/10/19 13:15 03/15/19 13:14 Amikacin Protocol (Amikacin pharmacy to dose) 1 ea DAILY PRN MISC . 03/10/19 13:30 04/09/19 13:29 Amikacin Sulfate 400 mg/Sodium Chloride 111.6 ml @ 111.6 mls/ hr Q24H IV 03/11/19 01:00 03/18/19 00:59 Atropine Sulfate (Atropine 0.4mg/ ml) 0.5 mg Q5M PRN IVP HR<40 03/10/19 13:00 03/10/19 21:00 Diphenhydramine HCl (Benadryl) 25 mg Q15M PRN IVP Itching 03/10/19 13:00 03/10/19 21:00 Ertapenem 0.5 gm/ Sodium Chloride 55 ml @ 110 mls/hr Q24H IV 03/10/19 21:00 03/15/19 20:59 Fentanyl Citrate (Sublimaze 100 mcg/2 mL) 25 mcg Q10M PRN IV Moderate Pain (Pain Scale 4-6) 03/10/19 13:00 03/10/19 21:00 Heparin Sodium (Porcine) (Heparin 5000 units/ml) 5,000 units EVERY 12 HOURS SUBQ 03/10/19 21:00 04/09/19 20:59 Hydralazine HCl (Apresoline) 5 mg Q30M PRN IV SBP>160 / DBP>90 03/10/19 13:00 03/10/19 21:00 Hydromorphone HCl (Dilaudid) 0.5 mg Q15M PRN IVP Severe Pain (Pain Scale 7-10) 03/10/19 13:00 03/10/19 21:00 Iopamidol (Isovue-300 100ml) 100 ml NOW PRN INJ Radiology Procedure 03/10/19 10:00 Ketorolac Tromethamine (Toradol 30mg) 15 mg Q1H PRN IV Moderate Breakthru Pain (5-7) 03/10/19 13:00 03/10/19 21:00 Ketorolac Tromethamine (Toradol 30mg) 30 mg Q1H PRN IV Severe Breakthru Pain (>7) 03/10/19 13:00 03/10/19 21:00 Labetalol HCl (Normodyne) 5 mg Q10M PRN IV SBP>160 / DBP>90 03/10/19 13:00 03/10/19 21:00 Lorazepam (Ativan 2mg/ml 1ml) 1 mg Q15M PRN IV For Anxiety 03/10/19 13:00 03/10/19 21:00 Meperidine HCl (Demerol) 25 mg Q5M PRN IVP Shivering.May repeat x 1 03/10/19 13:00 03/10/19 21:00 Metoclopramide HCl (Reglan) 10 mg Q1H PRN IVP Nausea & Vomiting 03/10/19 13:00 03/10/19 21:00 Midazolam HCl (Versed 2mg/2ml vial) 1 mg Q15M PRN IVP For Anxiety 03/10/19 13:00 03/10/19 21:00 Morphine Sulfate (Morphine Sulfate) 2 mg Q4H PRN IVP Severe Pain (Pain Scale 7-10) 03/10/19 13:15 03/17/19 13:14 Norepinephrine Bitartrate 4 mg/ Dextrose 254 ml @ 0 mls/hr Q24H IV 03/10/19 13:09 04/09/19 13:08 Ondansetron HCl (Zofran) 4 mg Q1H PRN IVP Nausea & Vomiting 03/10/19 13:00 03/10/19 21:00 Ondansetron HCl (Zofran) 4 mg Q6H PRN IVP Nausea & Vomiting 03/10/19 13:15 04/09/19 13:14 Oxycodone/ Acetaminophen (Percocet 5-325) 1 tab Q1H PRN ORAL Severe Pain (Pain Scale 7-10) 03/10/19 13:00 03/10/19 21:00 Pantoprazole (Protonix) 40 mg DAILY IVP 03/11/19 09:00 04/10/19 08:59 Pantoprazole 80 mg/Sodium Chloride 250 ml @ 25 mls/hr Q10H ONCE IV 03/10/19 11:45 03/10/19 21:44 03/10/19 11:58 Polyethylene Glycol (Miralax) 17 gm DAILYPRN PRN ORAL Constipation 03/10/19 13:15 04/09/19 13:14 Sodium Chloride 1,000 ml @ 100 mls/hr Q10H IVLG 03/10/19 13:16 04/09/19 13:15 Vancomycin HCl (Vanco rx to dose) 1 ea DAILY PRN MISC . 03/10/19 13:30 04/09/19 13:29 Vancomycin HCl 500 mg/Dextrose 110 ml @ 110 mls/hr Q24H IVPB 03/10/19 23:00 03/15/19 22:59 Assessment/Plan Assessment/Plan: Abx: IV Vancomycin 03/10- Zosyn x1 03/10 IV Amikacin 03/10- Ertapenem 03/10- Ancef x1 03/10 Assessment: Perforated viscus -03/10 SP 03/10 SP Exploratory Laparotomy, Repair Viscus -03/10 CT abd/p: Free intraperitoneal gas. Etiology not completely certain, but gas within and extending from the anterior gastric antral wall is suspicious for a perforated gastric ulcer. Perforated descending colon diverticulitis also possible but deemed much less likely. Free intraperitoneal fluid, presumably related to the above. Fatty liver. Basilar pulmonary parenchymal groundglass opacities. This could indicate pulmonary edema, among other possibilities. Subcentimeter low-attenuation renal lesions, too small to characterize, most likely benign simple cyst. No further follow-up necessary. 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 Afebrile Mild leukocytosis -u/a neg VDRF, post-op DARRON Dm2 HTN Plan: -D/c IV Vancomycin, Amikcin, Ertapenem #1 -COntinue Zosyn #1 periop -f/u cx -Monitor CBC/CMP, temperatures -ICU/ETT care -Sx f/u -wound care per surgical team -aspiration precautions Thank you for this consultation. Will continue to follow along with you. Discussed with Janette Zhu M.D. Mar 10, 2019 17:00
--- NOTE | 2019-03-10 17:15 | NUR ---
NURSE NOTES: Patient placed in room 246-H from surgery room, patient has under anesthesia, is intubated with ventilator on AC 16, TV: 400, FIo2: 40% peep of 5 saturating at 95-98% with no distress noted, has a abdominal pad covering surgical wound with no oozing noted, NG-tube placed by Dr. Sheth and ordered to have to low intermittent suction, patient has a Zaragoza with light straw urine draining.
--- NOTE | 2019-03-10 17:34 | History & Physical ---
History and Physical History & Physicial Dictated for Int Med - Dr Silva no. [id number]. Zen Paige MD Mar 10, 2019 17:34
--- NOTE | 2019-03-10 17:45 | NUR ---
NURSE NOTES: Dr. Paige at the bedside and assessed patient, no verbal orders given at this time.
--- NOTE | 2019-03-10 18:00 | NUR ---
NURSE NOTES: Dr. Sheth at the bedside ordered to keep NG -tube on low intermittent suction and NPO, absolutely no medications to be given by NG-tube.
--- NOTE | 2019-03-10 18:22 | Brief Operative Note ---
Immediate Post Operative Note Operative Note Pre-op Diagnosis: perforated abdominal viscus Procedure: ex lap with imelda patch, washout, omentectomy Post-op Diagnosis: perforated prepyloric gastric ulcer Surgeon: frank Anesthesiologist: emani Anesthesia: general Specimen: yes Complications: none Condition: stable Fluids: see records Estimated Blood Loss: minimal Drains: none Implant(s) used?: No Mike Sheth Mar 10, 2019 18:22
[2019-03-10] MEDS ORDERED: Acetaminophen 650 MG SUPP RECTAL PRN (18:30)
--- NOTE | 2019-03-10 18:31 | History and Physical Report ---
DATE OF ADMISSION: 03/10/2019 CHIEF COMPLAINT: The patient is an 84-year-old female, who presents with a chief complaint of abdominal pain, nausea, and vomiting. HISTORY OF PRESENT ILLNESS: Began early this morning, after the patient ate yogurt. The patient began to experience severe abdominal pain. The patient herself is intubated in the intensive care unit. Much of the history and physical is taken from the patient's chart. The patient developed sudden abdominal pain this morning approximately 7:30 a.m. after eating yogurt. Pain was 10/10 in intensity. It was localized to the upper abdomen. The patient also had nausea and vomiting. The patient presented to [place] emergency room. A CT scan of the abdomen revealed free air. The patient was admitted with perforated abdominal viscus. REVIEW OF SYSTEMS: Unable to assess secondary to the patient's mental status. PAST MEDICAL HISTORY: Significant for: 1. Hypertension. 2. Diabetes. PAST SURGICAL HISTORY: Unknown. CURRENT MEDICATIONS: Unknown. ALLERGIES: No known drug allergies. SOCIAL HISTORY: The patient is single. The patient denies tobacco or alcohol use. PHYSICAL EXAMINATION: VITAL SIGNS: Temperature 97.7, respirations 16, pulse 87, blood pressure 125/77. GENERAL: The patient is a well developed, well nourished female who is intubated and sedated. HEENT: Eyes, pupils equal and responsive to light and accommodation. Extraocular movements are intact. NECK: Supple without lymphadenopathy. CHEST: Few diffuse wheezes bilaterally. Otherwise, without wheezes or rales. CARDIOVASCULAR: Regular rhythm rate. S1-S2 are normal without murmurs, rubs, or gallops. ABDOMEN: Soft, nontender with decreased bowel sounds. No evidence of hepatosplenomegaly. Currently, no rebound or guarding noted. EXTREMITIES: Negative for clubbing, cyanosis, edema. RECTAL/GENITAL: Not performed. NEUROLOGIC: Cranial nerves II through XII are grossly intact without focal deficits. LABORATORY STUDIES: WBC 12.7, hemoglobin 15.9, hematocrit 48.4, platelets 254,000. Sodium 137, potassium 3.1, chloride 94, CO2 29, BUN 49, creatinine 1.3, glucose 353,000. AST elevated at 70, ALT elevated at 94, alkaline phosphatase elevated 170. CT scan of the abdomen, free intraperitoneal gas and intraperitoneal fluid. Differential includes perforated diverticulitis versus perforated gastric ulcer. ASSESSMENT: This is an 84-year-old female. 1. Perforated abdominal viscus. 2. Abdominal pain. 3. Nausea with vomiting. 4. Diabetes type 2. 5. Hypertension. TREATMENT: 1. Perforated abdominal viscus. A General Surgery consultation has been obtained with Dr. Sheth. The patient is scheduled to undergo emergent exploratory laparotomy. We will follow recommendations of General Surgery. 2. Diabetes type 2. NovoLog sliding scale has been instituted. 3. Hypertension. The patient is currently hypotensive. 4. Respiratory failure. The patient is currently intubated in the intensive care unit. A Pulmonary consultation has been obtained with Dr. Bibiana Pennington. Zen Paige M.D. DR: JOSEPH JOB#: [id number] CC:
[2019-03-10] MEDS ORDERED: Morphine Sulfate 2mg/ml Inj(IV/IM USE ONLY) IVP PRN (18:34)
--- NOTE | 2019-03-10 18:45 | NUR ---
NURSE NOTES: Dr. Stallworth consulted for infectious disease, no verbal orders given at this time.
--- NOTE | 2019-03-10 19:11 | NUR ---
RESPIRATORY NOTE: Received pt on AC/VC RR 12 VT 400 FIO2 40% and peep +5. Pending vent setting order told SARAI Patel. Intubated with 7.5 size ett at 20 at the lip secured by anchor fast. Scant amount of secretions. Vent is plugged into red outlet. Ambu bag near bedside. Will continue to monitor pt's progress.
--- NOTE | 2019-03-10 19:18 | NUR ---
HAND-OFF: Report given to SARAI Patel. patient is awakening from anesthesia and is able to track staff and answer yes/no questions. NG-tube remains at 62-63cm on the left nare connected to low intermittent suction. clear light yellowish secretions noted in ng tubing, remains with NS at 100ml/hr on right AC 20g. tolerating ventilator with setting of AC 12, TV: 400, FIO2: 40% with peep of 5 saturtiong at 96% and HR at 75-90 in sinus rhythm.
--- NOTE | 2019-03-10 19:19 | NUR ---
NURSE NOTES: Received bedside report from SARAI Mendez.Patient stable,awake,alert after anesthesia,SR on campus monitor,still NPO, NGT remained with 63cm on L nares,BS present in all quadrants on auscultation,ETT on R lips,AC 12 TV 400 FiO2 40% PEEP 5,tolerated well,f/cath running toward gravity,IV asymptomatic,intact on R AC 20G running with NS@ 100 ml/hr,bed secured in a low safety position,family at bedside,will continue to monitor and follow POC.
[2019-03-10] MEDS ORDERED: Piperacillin/Tazobactam 3.375 GM in NS 110 ML IVPB SCH (20:00)
--- NOTE | 2019-03-10 20:00 | Operative Note - Dictated ---
DATE OF OPERATION: 03/10/2019 PREOPERATIVE DIAGNOSIS: Perforated abdominal viscus. POSTOPERATIVE DIAGNOSIS: Perforated pre-pyloric gastric ulcer. OPERATION PERFORMED: 1. Exploratory laparotomy. 2. Abdominal washout. 3. Partial omentectomy. 4. Shane patch for repair of perforated pre-pyloric ulcer. ATTENDING SURGEON: Mike Sheth M.D. ROLL CLAMP OPERATOR: None. ANESTHESIOLOGIST: Austyn Maloney M.D. ANESTHESIA: General GETA. ESTIMATED BLOOD LOSS: Minimal. IV FLUIDS: Please see anesthesia records. DRAINS: None. SPECIMENS: Omentum. WOUND CLASSIFICATION: Class 3. COUNTS: Sponge and needle count correct x2. COMPLICATIONS: None. INDICATIONS FOR PROCEDURE: This 84-year-old female presented to the emergency department at [facility] complaining of worsening abdominal pain that began approximately one day ago. In the emergency room, she was identified to have leukocytosis, abdominal peritonitis, and CT scan with concerns for perforation with free air and fluid and consistent with potential gastric perforation. Surgery was indicated and recommended. Risks, benefits, and alternatives discussed with the patient and family in detail, who expressed understanding and consented for surgery. OPERATIVE NOTE: The patient was taken emergently to the operating room from the emergency department. The patient was placed on operating table in supine position with bilateral arms out. All bony prominences were well padded. SCDs were placed. Zaragoza catheter was inserted using standard sterile technique. Preoperative time-out taken to identify the patient, procedure, operative staff, and surgical staff. General anesthesia was induced and the patient was intubated. The abdomen was clipped, prepped, and draped in standard surgical fashion. A midline incision was made from the xiphoid to above the umbilicus using a fresh #10 scalpel and carried down through subcutaneous tissue into the fascia using electrocautery. The fascia was elevated and incised and entry into the abdomen was obtained without complication. Upon entering the abdomen, there was some foul-smelling fluid identified. A Bookwalter retractor was placed and abdomen was inspected in all quadrants. Immediately was identifiable that the lesion was a gastric perforation and a 1 cm pre-pyloric perforated ulcer was identified. The omentum around this area was significantly thickened with a rind. The abdomen was irrigated with copious amounts of warm normal saline until clear. The liver was congested and boggy. The gallbladder was identified and otherwise normal with some omental adhesions. The right lower quadrant pelvis and left lower quadrant were otherwise without complication. Of note, the patient did seem to have a prior hysterectomy. The left upper quadrant identified a small spleen and otherwise normal stomach. The portions of the colon that could be identified were otherwise normal. No colonic perforation or sigmoid perforation noted. The remaining of the small intestines that could be identified were otherwise healthy without abnormality. Once the abdomen was irrigated and incisions were cleaned, we turned our attention to the omentum that required partial resection given the areas that were significantly thickened and with rind. This portion of omentum was divided using clamps and 2-0 silk ties. Following this, omentum was sent off to pathology for review. The portion of the remaining omentum was planned for use for a Shane patch given the location, the size and characteristics of the ulcer. It was clean based ulcer circumferential and without signs of any potential other abnormalities. The pylorus palpated and noted to be just distal to this. The remainder of stomach was palpated and noted to be normal. A NG tube was placed and placed before the area of the perforation and left in place. A lip of omentum was made and placed over the perforated defect. Three silk sutures were placed in the omentum was tied down using the Shane patch without complication. At this time, the abdomen was inspected and no abnormalities were found. We began the conclusion of our procedure. Sponge, needle, and lap count were performed and noted to be satisfactory. The fascia was reapproximated using #0 PDS suture. Following this, skin incision was cleansed. Hemostasis obtained with electrocautery and the skin incision reapproximated using surgical anna. Dressings were applied. The patient tolerated the procedure well and was taken directly to the intensive care unit left intubated until resuscitated and ready for extubation. NG tube was left in place and clear instructions were made. Mike Sheth M.D. DR: SUYAPA JOB#: [id number] CC: KEYSHA
--- NOTE | 2019-03-10 20:08 | NUR ---
NURSE NOTES: notified regarding pt's condition,B/P dropping to 83/39,charge nurse aware,waiting for MD respond
--- NOTE | 2019-03-10 20:30 | NUR ---
NURSE NOTES: Received an order from over the phone for bolus IV fluid 500ml/hr.Charge nurse aware
[2019-03-10] MEDS ORDERED: Ertapenem 0.5 GM in NS 55 ML IV SCH (21:00)
[2019-03-10] MEDS: Heparin 5000 units/ml inj SUBQ SCH (21:21)
[2019-03-10] MEDS ORDERED: Vancomycin 500mg/D5W 110ml IVPB SCH ×2 (23:00)
--- NOTE | 2019-03-10 23:38 | NUR ---
NURSE NOTES: Patient turned and repositioned,B/P stable,patient clean and dry.
[2019-03-10] MEDS ORDERED: Vancomycin 1 GM in D5W 275 ML IV SCH (23:45)
[2019-03-11] VITALS (31 sets, daily range): BP systolic 92–140; BP diastolic 42–59
[2019-03-11] MEDS ORDERED: Amikacin 400 MG in NS 110 ML IV SCH (01:00)
--- NOTE | 2019-03-11 03:00 | NUR ---
NURSE NOTES: Pt stable,sleeping,no c/o pain,B/P stable,turned and repositioned ,tolerated setting well
[2019-03-11 04:22] LABS: HEMATOCRIT 33.1 % (37.0-47.0); HEMOGLOBIN 10.9 G/DL (12.0-16.0); MEAN CORPUSCULAR VOLUME 91 FL (80-99); PLATELET COUNT 138 K/UL (150-450); RED BLOOD COUNT 3.64 M/UL (4.20-5.40); RED CELL DISTRIBUTION WIDTH 13.2 % (11.6-14.8); WHITE BLOOD COUNT 12.6 K/UL (4.8-10.8)
[2019-03-11 05:07] LABS: ALANINE AMINOTRANSFERASE 109 U/L (12-78); ALBUMIN 2.5 G/DL (3.4-5.0); ALBUMIN/GLOBULIN RATIO 1.2 (1.0-2.7); ALKALINE PHOSPHATASE 50 U/L (46-116); ANION GAP 11 mmol/L (5-15); ASPARTATE AMINO TRANSFERASE 107 U/L (15-37); BILIRUBIN,DIRECT 0.2 MG/DL (0.0-0.3); BILIRUBIN,TOTAL 0.7 MG/DL (0.2-1.0); BLOOD UREA NITROGEN 38 mg/dL (7-18); CALCIUM 6.9 MG/DL (8.5-10.1); CARBON DIOXIDE 23 MMOL/L (21-32); CHLORIDE 107 MMOL/L (98-107); CREATININE 1.1 MG/DL (0.55-1.30); POTASSIUM 3.1 MMOL/L (3.5-5.1); SODIUM 141 MMOL/L (136-145)
[2019-03-11] MEDS: Piperacillin/Tazobactam 3.375 GM in NS 110 ML IVPB SCH ×3 (05:49→21:59)
--- NOTE | 2019-03-11 07:16 | NUR ---
HAND-OFF: Report given to SARAI Sadler.Patient stable.
--- NOTE | 2019-03-11 07:20 | NUR ---
NURSE NOTES: Received change of shift report from Amanda MOON. Pt is asleep, opens eyes to name/voice. Pt is orally intubated, ETT 7.5 with vent settings AC12, Peep 5.0, VT 400, FIO2 40% with O2Sat 100%. Bilateral diminished lung sounds are noted on auscultation. mr teacher displays NSR. Bounding radial and pedal pulses are noted on palpation. Pt has left NGT current connected to low intermittent suction with very small output of clear gastric fluid. Abdomen is large, round, distended, slightly hard and moderately tender to touch with hypoactive bowel sounds on auscultation. Skin is intact with the exception of surgical incisional/wound on mid-gastric/abdomen covered with surgical dressing, dry/intact. Peripheral IV access is present on right AC #20G and right FA #22G with NS infusing at 100ml/hour. Zaragoza catheter is in place draining clear yellow urine with sediments. Bed is locked with three side rails up, in lowest position, head of bed at 30 degrees and call light within reach. Will continue to monitor pt and follow plan of care per MD orders and protocol.
--- NOTE | 2019-03-11 08:47 | NUR ---
RADIOLOGY DEPT., CHEST X-RAY DONE.-P.DYE
--- NOTE | 2019-03-11 08:58 | Diagnostic Imaging Report ---
Indication: Reason For Exam: [id number] Technique: One view of the chest Comparison: none Findings: There is an endotracheal tube or tracheostomy in place included position. There is nasogastric tube in place, tip projected beyond the of the image, presumably well within the stomach. Atelectatic changes are seen at both lung bases. The pleural spaces are grossly clear. The heart is enlarged. Impression: Bilateral basilar atelectatic changes Tube positions as described
[2019-03-11] MEDS ORDERED: Pantoprazole Inj IVP SCH (09:00)
[2019-03-11] MEDS: Heparin 5000 units/ml inj SUBQ SCH ×2 (09:37→20:10)
--- NOTE | 2019-03-11 09:41 | Pulmonolgy Critical Care Note ---
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 - Objective Last 24 Hour Vital Signs Date Time Temp Pulse Resp B/P (MAP) Pulse Ox O2 Delivery O2 Flow Rate FiO2 03/11/19 08:00 105 17 113/48 (69) 96 03/11/19 07:20 108 20 40 03/11/19 07:00 105 20 111/43 (65) 96 03/11/19 06:00 97 15 124/57 (79) 97 03/11/19 05:12 100 17 40 03/11/19 05:00 102 18 106/44 (64) 96 03/11/19 04:00 97 18 113/47 (69) 96 03/11/19 04:00 Endotracheal Tube 03/11/19 04:00 40 03/11/19 03:35 97 03/11/19 03:00 97 18 119/58 (78) 96 03/11/19 02:49 94 16 40 03/11/19 02:00 95 15 92/44 (60) 96 03/11/19 01:00 96 16 96/48 (64) 95 03/11/19 00:45 92 12 40 03/11/19 00:09 91 03/11/19 00:00 Endotracheal Tube 03/11/19 00:00 92 16 105/50 (68) 95 03/11/19 00:00 91 15 96/47 (63) 95 03/11/19 00:00 40 03/10/19 23:00 95 13 95/44 (61) 95 03/10/19 22:30 94 13 40 03/10/19 22:00 97.5 93 13 91/42 (58) 95 03/10/19 21:05 93 12 40 03/10/19 21:00 97.5 86 15 102/44 (63) 96 03/10/19 20:00 97.8 74 14 93/39 (57) 96 03/10/19 20:00 Endotracheal Tube 03/10/19 19:47 87 03/10/19 19:11 83 12 40 03/10/19 19:00 82 12 95/34 (54) 98 03/10/19 18:30 79 12 100/45 (63) 96 03/10/19 18:00 80 12 101/41 (61) 97 03/10/19 17:45 77 12 103/46 (65) 99 03/10/19 17:30 78 13 110/44 (66) 99 03/10/19 17:15 77 13 113/48 (69) 96 03/10/19 17:08 Mechanical Ventilator 03/10/19 17:00 75 12 100/36 (57) 95 03/10/19 16:45 79 12 102/53 (69) 95 03/10/19 16:42 89 12 100 03/10/19 16:41 82 12 98 Mechanical Ventilator 40 03/10/19 16:36 83 12 40 03/10/19 16:30 83 03/10/19 16:30 40 03/10/19 16:30 97.7 94 11 72/47 (55) 96 03/10/19 14:05 98.4 81 20 135/70 95 Nasal Cannula 2.0 03/10/19 13:00 97.8 88 23 137/66 94 Nasal Cannula 2.0 03/10/19 12:00 97.7 87 17 139/80 95 Nasal Cannula 2.0 03/10/19 11:05 98.0 85 16 122/70 97 Nasal Cannula 2.0 03/10/19 10:55 98.4 03/10/19 10:55 98.4 03/10/19 10:39 97.7 03/10/19 10:01 97.7 77 21 143/77 94 Room Air 03/10/19 09:57 77 21 Room Air 03/10/19 09:55 97.7 87 16 125/77 (93) 94 Room Air Status: awake Condition: critical HEENT: atraumatic Neck: full ROM Heart: HR/BP stable Abdomen: soft, active bowel sounds, feeding tube Extremities: no C/C/E Micro: Microbiology Date/Time Source Procedure Growth Status 03/10/19 13:00 Rectum Received Critical Care - Subjective Interval Events: awake, orally intubated. FI02: 40 Vent Support Breath Rate: 12 Vent Support Mode: AC Vent Tidal Volume: 400 Sputum Amount: Scant PEEP: 5.0 PIP: 10 I&O: Intake and Output 03/10/19 03/11/19 18:59 06:59 Intake Total 2175 ml 625 ml Output Total 30 ml 335 ml Balance 2145 ml 290 ml Intake IV Total 2175 ml 415 ml Other 210 ml Output Urine Total 30 ml 335 ml # Voids 1 ET-Tube: 7.5 ET Position: 20 Labs: Laboratory Tests Test 03/10/19 10:00 03/10/19 10:05 03/10/19 13:50 03/11/19 03:00 Urine Color Pale yellow Urine Appearance Clear Urine pH 5 (4.5-8.0) Urine Specific [place] 1.010 (1.005-1.035) Urine Protein 1+ (NEGATIVE) H Urine Glucose (UA) 4+ (NEGATIVE) H Urine Ketones Negative (NEGATIVE) Urine Blood Negative (NEGATIVE) Urine Nitrite Negative (NEGATIVE) Urine Bilirubin Negative (NEGATIVE) Urine Urobilinogen Normal MG/DL (0.0-1.0) Urine Leukocyte Esterase Negative (NEGATIVE) Urine RBC 0 /HPF (0 - 2) Urine WBC 0-2 /HPF (0 - 2) Urine Squamous Epithelial Cells None /LPF (NONE/OCC) Urine Bacteria None /HPF (NONE) Urine Hyaline Casts 0-2 /LPF (NONE) H Troponin I 0.000 ng/mL (0.000-0.056) White Blood Count 12.7 K/UL (4.8-10.8) H 12.6 K/UL (4.8-10.8) H Red Blood Count 5.36 M/UL (4.20-5.40) 3.64 M/UL (4.20-5.40) L Hemoglobin 15.9 G/DL (12.0-16.0) 10.9 G/DL (12.0-16.0) #L Hematocrit 48.4 % (37.0-47.0) H 33.1 % (37.0-47.0) #L Mean Corpuscular Volume 90 FL (80-99) 91 FL (80-99) Mean Corpuscular Hemoglobin 29.6 PG (27.0-31.0) 29.9 PG (27.0-31.0) Mean Corpuscular Hemoglobin Concent 32.8 G/DL (32.0-36.0) 32.8 G/DL (32.0-36.0) Red Cell Distribution Width 13.3 % (11.6-14.8) 13.2 % (11.6-14.8) Platelet Count 254 K/UL (150-450) 138 K/UL (150-450) L Mean Platelet Volume 7.5 FL (6.5-10.1) 8.7 FL (6.5-10.1) Neutrophils (%) (Auto) % (45.0-75.0) % (45.0-75.0) Lymphocytes (%) (Auto) % (20.0-45.0) % (20.0-45.0) Monocytes (%) (Auto) % (1.0-10.0) % (1.0-10.0) Eosinophils (%) (Auto) % (0.0-3.0) % (0.0-3.0) Basophils (%) (Auto) % (0.0-2.0) % (0.0-2.0) Differential Total Cells Counted 100 100 Neutrophils % (Manual) 62 % (45-75) 91 % (45-75) H Lymphocytes % (Manual) 13 % (20-45) L 5 % (20-45) L Monocytes % (Manual) 3 % (1-10) 4 % (1-10) Eosinophils % (Manual) 0 % (0-3) 0 % (0-3) Basophils % (Manual) 0 % (0-2) 0 % (0-2) Band Neutrophils 22 % (0-8) H 0 % (0-8) Platelet Estimate Adequate Decreased L Platelet Morphology Normal Normal Red Blood Cell Morphology Normal Sodium Level 137 MMOL/L (136-145) 141 MMOL/L (136-145) Potassium Level 3.1 MMOL/L (3.5-5.1) L 3.1 MMOL/L (3.5-5.1) L Chloride Level 94 MMOL/L (98-107) L 107 MMOL/L (98-107) Carbon Dioxide Level 29 MMOL/L (21-32) 23 MMOL/L (21-32) Anion Gap 14 mmol/L (5-15) 11 mmol/L (5-15) Blood Urea Nitrogen 49 mg/dL (7-18) H 38 mg/dL (7-18) H Creatinine 1.3 MG/DL (0.55-1.30) 1.1 MG/DL (0.55-1.30) Estimat Glomerular Filtration Rate mL/min (>60) mL/min (>60) Glucose Level 353 MG/DL (74-106) H 255 MG/DL (74-106) H Calcium Level 9.6 MG/DL (8.5-10.1) 6.9 MG/DL (8.5-10.1) #L Total Bilirubin 0.6 MG/DL (0.2-1.0) 0.7 MG/DL (0.2-1.0) Aspartate Amino Transf (AST/SGOT) 70 U/L (15-37) H 107 U/L (15-37) H Alanine Aminotransferase (ALT/SGPT) 94 U/L (12-78) H 109 U/L (12-78) H Alkaline Phosphatase 170 U/L (46-116) H 50 U/L (46-116) Total Protein 6.7 G/DL (6.4-8.2) 4.5 G/DL (6.4-8.2) #L Albumin 3.6 G/DL (3.4-5.0) 2.5 G/DL (3.4-5.0) L Globulin 3.1 g/dL 2.0 g/dL Albumin/Globulin Ratio 1.2 (1.0-2.7) 1.2 (1.0-2.7) Lipase 80 U/L (73-393) Prothrombin Time 10.7 SEC (9.30-11.50) Prothromb Time International Ratio 1.0 (0.9-1.1) Activated Partial Thromboplast Time 20 SEC (23-33) L Hypochromasia 1+ Direct Bilirubin 0.2 MG/DL (0.0-0.3) Test 03/11/19 09:00 Arterial Blood pH 7.496 (7.350-7.450) Arterial Blood Partial Pressure CO2 25.0 mmHg (35.0-45.0) L Arterial Blood Partial Pressure O2 115.5 mmHg (75.0-100.0) H Arterial Blood HCO3 18.9 mmol/L (22.0-26.0) L Arterial Blood Oxygen Saturation 97.7 % (95-100) Arterial Blood Base Excess -3.1 (-2-2) L Umang Test Positive Bibiana Pennington MD Mar 11, 2019 09:41
[2019-03-11] MEDS: Morphine Sulfate 2mg/ml Inj(IV/IM USE ONLY) IVP PRN ×2 (09:43→12:20)
--- NOTE | 2019-03-11 10:00 | NUR ---
NURSE NOTES: RT at bedside attempted weaning, however RSBI was 12, pt immediately became tachycardic, tachypneic with RR 36 and tidal volume dropped below 150. Pt is now on AC vent settings. VS stable. AM have been administered. Pt has been given Morphine for abdominal pain. Family is now at bedside.
--- NOTE | 2019-03-11 11:24 | Infectious Diseases Prog Note ---
Assessment/Plan Assessment/Plan Assessment: Perforated pre-pyloric gastric ulcer -03/10 SP 03/10 SP Exploratory Laparotomy, Abdominal washout. Partial omentectomy. Shane patch for repair of perforated pre-pyloric ulcer. -03/10 CT abd/p: Free intraperitoneal gas. Etiology not completely certain, but gas within and extending from the anterior gastric antral wall is suspicious for a perforated gastric ulcer. Perforated descending colon diverticulitis also possible but deemed much less likely. Free intraperitoneal fluid, presumably related to the above. Fatty liver. Basilar pulmonary parenchymal groundglass opacities. This could indicate pulmonary edema, among other possibilities. Subcentimeter low-attenuation renal lesions, too small to characterize, most likely benign simple cyst. No further follow-up necessary. 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 Afebrile Mild leukocytosis -u/a neg -CXR: Bilateral basilar atelectatic changes VDRF, post-op DARRON Dm2 HTN Plan: -COntinue Zosyn #2 periop -03/10 SP IV Vancomycin #1, Ancef x1 -f/u cx -Monitor CBC/CMP, temperatures -ICU/ETT care -Sx f/u -wound care per surgical team -aspiration precautions Thank you for this consultation. Will continue to follow along with you. Discussed with RN Subjective Allergies: Coded Allergies: No Known Allergies (Unverified , 03/10/19) Subjective afebrile remains intubated in ICU Objective Vital Signs Last 24 Hour Vital Signs Date Time Temp Pulse Resp B/P (MAP) Pulse Ox O2 Delivery O2 Flow Rate FiO2 03/11/19 11:00 90 15 117/50 (72) 97 03/11/19 10:30 92 15 118/49 (72) 96 03/11/19 10:13 97.5 03/11/19 10:00 95 16 115/50 (71) 96 03/11/19 09:30 94 17 126/56 (79) 96 03/11/19 09:10 100 03/11/19 09:10 100 18 40 03/11/19 09:00 99 16 120/51 (74) 95 03/11/19 08:00 99.4 105 17 113/48 (69) 96 03/11/19 08:00 40 03/11/19 08:00 Endotracheal Tube 03/11/19 07:20 108 20 40 03/11/19 07:00 105 20 111/43 (65) 96 03/11/19 06:00 97 15 124/57 (79) 97 03/11/19 05:12 100 17 40 03/11/19 05:00 102 18 106/44 (64) 96 03/11/19 04:00 97 18 113/47 (69) 96 03/11/19 04:00 Endotracheal Tube 03/11/19 04:00 40 03/11/19 03:35 97 03/11/19 03:00 97 18 119/58 (78) 96 03/11/19 02:49 94 16 40 03/11/19 02:00 95 15 92/44 (60) 96 03/11/19 01:00 96 16 96/48 (64) 95 03/11/19 00:45 92 12 40 03/11/19 00:09 91 03/11/19 00:00 Endotracheal Tube 03/11/19 00:00 92 16 105/50 (68) 95 03/11/19 00:00 91 15 96/47 (63) 95 03/11/19 00:00 40 03/10/19 23:00 95 13 95/44 (61) 95 03/10/19 22:30 94 13 40 03/10/19 22:00 97.5 93 13 91/42 (58) 95 03/10/19 21:05 93 12 40 03/10/19 21:00 97.5 86 15 102/44 (63) 96 03/10/19 20:00 97.8 74 14 93/39 (57) 96 03/10/19 20:00 Endotracheal Tube 03/10/19 19:47 87 03/10/19 19:11 83 12 40 03/10/19 19:00 82 12 95/34 (54) 98 03/10/19 18:30 79 12 100/45 (63) 96 03/10/19 18:00 80 12 101/41 (61) 97 03/10/19 17:45 77 12 103/46 (65) 99 03/10/19 17:30 78 13 110/44 (66) 99 03/10/19 17:15 77 13 113/48 (69) 96 03/10/19 17:08 Mechanical Ventilator 03/10/19 17:00 75 12 100/36 (57) 95 03/10/19 16:45 79 12 102/53 (69) 95 03/10/19 16:42 89 12 100 03/10/19 16:41 82 12 98 Mechanical Ventilator 40 03/10/19 16:36 83 12 40 03/10/19 16:30 83 03/10/19 16:30 40 03/10/19 16:30 97.7 94 11 72/47 (55) 96 03/10/19 14:05 98.4 81 20 135/70 95 Nasal Cannula 2.0 03/10/19 13:00 97.8 88 23 137/66 94 Nasal Cannula 2.0 03/10/19 12:00 97.7 87 17 139/80 95 Nasal Cannula 2.0 Height (Feet): 5 Height (Inches): 0.00 Weight (Pounds): 118 Objective General appearance: alert, cooperative, no distress, appears stated age Head: Normocephalic, without obvious abnormality, atraumatic Eyes: conjunctivae/corneas clear. PERRL, EOM's intact. Fundi benign Throat: Lips, mucosa, and tongue normal. Teeth and gums normal Neck: supple, symmetrical, trachea midline, no adenopathy, thyroid: not enlarged, symmetric, no tenderness/mass/nodules, no carotid bruit and no JVD Lungs: clear to auscultation bilaterally Heart: regular rate and rhythm, S1, S2 normal, no murmur, click, rub or gallop Abdomen: soft, peritonitis with tender. Bowel sounds normal. No masses, no organomegaly Extremities: extremities normal, atraumatic, no cyanosis or edema Pulses: 2+ and symmetric Skin: Skin color, texture, turgor normal. No rashes or lesions Neurologic: Grossly normal Microbiology Date/Time Source Procedure Growth Status 03/10/19 13:00 Rectum Received Laboratory Tests Test 03/10/19 13:50 03/11/19 03:00 03/11/19 09:00 Prothrombin Time 10.7 SEC (9.30-11.50) Prothromb Time International Ratio 1.0 (0.9-1.1) Activated Partial Thromboplast Time 20 SEC (23-33) L White Blood Count 12.6 K/UL (4.8-10.8) H Red Blood Count 3.64 M/UL (4.20-5.40) L Hemoglobin 10.9 G/DL (12.0-16.0) #L Hematocrit 33.1 % (37.0-47.0) #L Mean Corpuscular Volume 91 FL (80-99) Mean Corpuscular Hemoglobin 29.9 PG (27.0-31.0) Mean Corpuscular Hemoglobin Concent 32.8 G/DL (32.0-36.0) Red Cell Distribution Width 13.2 % (11.6-14.8) Platelet Count 138 K/UL (150-450) L Mean Platelet Volume 8.7 FL (6.5-10.1) Neutrophils (%) (Auto) % (45.0-75.0) Lymphocytes (%) (Auto) % (20.0-45.0) Monocytes (%) (Auto) % (1.0-10.0) Eosinophils (%) (Auto) % (0.0-3.0) Basophils (%) (Auto) % (0.0-2.0) Differential Total Cells Counted 100 Neutrophils % (Manual) 91 % (45-75) H Lymphocytes % (Manual) 5 % (20-45) L Monocytes % (Manual) 4 % (1-10) Eosinophils % (Manual) 0 % (0-3) Basophils % (Manual) 0 % (0-2) Band Neutrophils 0 % (0-8) Platelet Estimate Decreased L Platelet Morphology Normal Hypochromasia 1+ Sodium Level 141 MMOL/L (136-145) Potassium Level 3.1 MMOL/L (3.5-5.1) L Chloride Level 107 MMOL/L (98-107) Carbon Dioxide Level 23 MMOL/L (21-32) Anion Gap 11 mmol/L (5-15) Blood Urea Nitrogen 38 mg/dL (7-18) H Creatinine 1.1 MG/DL (0.55-1.30) Estimat Glomerular Filtration Rate mL/min (>60) Glucose Level 255 MG/DL (74-106) H Calcium Level 6.9 MG/DL (8.5-10.1) #L Total Bilirubin 0.7 MG/DL (0.2-1.0) Direct Bilirubin 0.2 MG/DL (0.0-0.3) Aspartate Amino Transf (AST/SGOT) 107 U/L (15-37) H Alanine Aminotransferase (ALT/SGPT) 109 U/L (12-78) H Alkaline Phosphatase 50 U/L (46-116) Total Protein 4.5 G/DL (6.4-8.2) #L Albumin 2.5 G/DL (3.4-5.0) L Globulin 2.0 g/dL Albumin/Globulin Ratio 1.2 (1.0-2.7) Arterial Blood pH 7.496 (7.350-7.450) Arterial Blood Partial Pressure CO2 25.0 mmHg (35.0-45.0) L Arterial Blood Partial Pressure O2 115.5 mmHg (75.0-100.0) H Arterial Blood HCO3 18.9 mmol/L (22.0-26.0) L Arterial Blood Oxygen Saturation 97.7 % (95-100) Arterial Blood Base Excess -3.1 (-2-2) L Umang Test Positive Current Medications Medications (Trade) Dose Ordered Sig/Shantelle Route PRN Reason Start Time Stop Time Status Last Admin Dose Admin Acetaminophen (Tylenol) 650 mg Q4H PRN RECTAL FEVER 03/10/19 18:30 04/09/19 18:29 Albuterol/ Ipratropium (Albuterol/ Ipratropium) 3 ml Q4H PRN HHN Shortness of Breath 03/10/19 13:15 03/15/19 13:14 Fluconazole/ Sodium Chloride 100 ml @ 100 mls/hr Q24H IV 03/10/19 22:00 03/17/19 21:59 03/10/19 22:18 Heparin Sodium (Porcine) (Heparin 5000 units/ml) 5,000 units EVERY 12 HOURS SUBQ 03/10/19 21:00 04/09/19 20:59 03/11/19 09:37 Morphine Sulfate (Morphine Sulfate) 2 mg Q1H PRN IVP pain scale 4-6 03/10/19 18:34 03/17/19 18:33 Morphine Sulfate (Morphine Sulfate) 2 mg Q4H PRN IVP Severe Pain (Pain Scale 7-10) 03/10/19 13:15 03/17/19 13:14 03/11/19 09:43 Ondansetron HCl (Zofran) 4 mg Q6H PRN IVP Nausea & Vomiting 03/10/19 13:15 04/09/19 13:14 03/11/19 09:43 Pantoprazole (Protonix) 40 mg BID IVP 03/13/19 18:00 04/12/19 17:59 Piperacillin Sod/ Tazobactam Sod 3.375 gm/Sodium Chloride 110 ml @ 27.5 mls/hr EVERY 8 HOURS IVPB 03/11/19 06:00 03/18/19 05:59 03/11/19 05:49 Sodium Chloride 1,000 ml @ 100 mls/hr Q10H IV 03/11/19 00:45 04/10/19 00:44 03/11/19 09:36 Janette Stallworth M.D. Mar 11, 2019 11:24
--- NOTE | 2019-03-11 11:29 | NUR ---
RD ASSESSMENT & RECOMMENDATIONS SEE CARE ACTIVITY FOR COMPLETE ASSESSMENT DAILY ESTIMATED NEEDS: Needs based on Critical care, surgery/ 53.6kg 22-30 kcals/kg 2595-5942 total kcals 1.2-2 g protein/kg 64-107 g total protein 25-30 mL/kg 5544-8590 total fluid mLs NUTRITION DIAGNOSIS: * Altered GI function R/T perforated gastric ulcer as evidenced by s/p ex lap, abdominal washout, partial omentectomy, imelda patch for repair of perforated pre-pyloric ulcer, NPO at this time, remains orally intubated in ICU. * Altered nutrition related lab values R/T diabetes, clinical condition as evidenced by elev BGs (255 353), urine glucose 4+, low K (3.1), elev LFTs CURRENT DIET:NPO PO DIET RECOMMENDATIONS: DIET PER SURGEON POST EXTUBATION ADDITIONAL RECOMMENDATIONS: * Monitor respiratory status- remains intubated post op at this time * Monitor NPO status- diet per surgeon * Consider NISS: h/o DM, elev FBGs. * Monitor lytes, replete as needed (low K) * Calibrated bedscale wt for accurate CBW
--- NOTE | 2019-03-11 12:00 | NUR ---
NURSE NOTES: Pt is asleep, opens eyes to voice/name. Pt's daughter is at bedside. Pt was seen by Dr Pennington and Dr Sheth. No new orders at this time. Abdominal surgical wound remains dry/intact. NGT is maintained on low intermittent suction with minimal clear to no output noted in the canister. NS continues to infuse at 100ml/hour. Zaragoza catheter continues to drain yellow urine with sediments at a rate of 25-35ml/hourly. Pt is afebrile. Addendum: 03/11/19 at 1654 by TESHA GRIGSBY RN Per Dr Sheth, surgical dressing is to remain in place and not be changed/touched at this time.
--- NOTE | 2019-03-11 13:00 | NUR ---
NURSE NOTES: Pt has two orders for PRN Morphine; to be administered Q1 hour and Q4 hours for severe to moderate pain respectively. Morphine 2mg was removed from the pyxis x2 per Q1 hour PRN order and administered to pt for noted moderate to severe abdominal pain.
--- NOTE | 2019-03-11 13:16 | 48 Hour Post Anesthesia Eval ---
Post Anesthesia Evaluation Procedure: Exploratory Laparotomy, Repair Viscus Date of Evaluation: Mar 11, 2019 Time of Evaluation: 13:14 Blood Pressure Systolic: 116 0: 72 Pulse Rate: 74 Respiratory Rate: 20 Temperature (Fahrenheit): 97.2 O2 Sat by Pulse Oximetry: 98 Airway: other - oraly intubated Nausea: No Vomiting: No Pain Intensity: 1 Hydration Status: adequate Cardiopulmonary Status: stable no pressors Mental Status/LOC: patient returned to baseline Follow-up Care/Observations: n/a Post-Anesthesia Complications: none Follow-up care needed: N/A Trey Truong MD Mar 11, 2019 13:16
--- NOTE | 2019-03-11 14:00 | NUR ---
NURSE NOTES: Pt was seen by Dr Stallworth. No new orders at this time. VS stable. Pt has been repositioned with bilateral extremities elevated on pillows.
--- NOTE | 2019-03-11 15:26 | NUR ---
CASE MANAGEMENT: INITIAL REVIEW 84 YO F PRESENTED TO ED FROM HOME CC: ABD PAIN PMHx: HTN. DM. SI:PERFORATED VISCUS. T 97.7 HR 87 RR 16 B/P 125/77 SATS 94% ON RA WBC 12.7 K 3.1 CL 94 BUN 49 GLU 353 AST 70 ALT 94 ALP 170 IS: NS BOLUS X3 MORPHINE IV X2 ZOSYN IV X1 PROTONIX IV X1 PATIENT ADMITTED TO ICU 03/10/2019 @ 1203 DCP: PATIENT TO BE DISCHARGED TO HOME ONCE MEDICALLY CLEARED. PLAN OF CARE: DATE OF OPERATION: 03/10/2019 PREOPERATIVE DIAGNOSIS: Perforated abdominal viscus. POSTOPERATIVE DIAGNOSIS: Perforated pre-pyloric gastric ulcer. OPERATION PERFORMED: 1. Exploratory laparotomy. 2. Abdominal washout. 3. Partial omentectomy. 4. Shane patch for repair of perforated pre-pyloric ulcer. 03/11/2019 SI:PERFORATED VISCUS. T 97.5 HR 92 RR 15 B/P 103/53 SATS 97% ON ETT FIO2 40 WBC 12.6 K 3.1 BUN 38 GLU 255 CA 6.9 AST 107 ALT 109 IS: IVF @ 100 mL/HR ZOSYN IV Q8H PROTONIX IV BID FLUCONAZOLE IV Q24H ICU DCP: PATIENT TO BE DISCHARGED TO HOME ONCE MEDICALLY CLEARED. Addendum: 03/11/19 at 1653 by Nallely Pennington CM INTERQUAL MET
--- NOTE | 2019-03-11 15:48 | Internal Med Progress Note ---
Subjective Physician Name Marcos Silva Attending Physician Marcos Silva MD Current Medications Medications (Trade) Dose Ordered Sig/Shantelle Route PRN Reason Start Time Stop Time Status Last Admin Dose Admin Acetaminophen (Tylenol) 650 mg Q4H PRN RECTAL FEVER 03/10/19 18:30 04/09/19 18:29 Albuterol/ Ipratropium (Albuterol/ Ipratropium) 3 ml Q4H PRN HHN Shortness of Breath 03/10/19 13:15 03/15/19 13:14 Fluconazole/ Sodium Chloride 100 ml @ 100 mls/hr Q24H IV 03/10/19 22:00 03/17/19 21:59 03/10/19 22:18 Heparin Sodium (Porcine) (Heparin 5000 units/ml) 5,000 units EVERY 12 HOURS SUBQ 03/10/19 21:00 04/09/19 20:59 03/11/19 09:37 Morphine Sulfate (Morphine Sulfate) 2 mg Q1H PRN IVP pain scale 4-6 03/10/19 18:34 03/17/19 18:33 Morphine Sulfate (Morphine Sulfate) 2 mg Q4H PRN IVP Severe Pain (Pain Scale 7-10) 03/10/19 13:15 03/17/19 13:14 03/11/19 12:20 Ondansetron HCl (Zofran) 4 mg Q6H PRN IVP Nausea & Vomiting 03/10/19 13:15 04/09/19 13:14 03/11/19 09:43 Pantoprazole (Protonix) 40 mg BID IVP 03/13/19 18:00 04/12/19 17:59 Piperacillin Sod/ Tazobactam Sod 3.375 gm/Sodium Chloride 110 ml @ 27.5 mls/hr EVERY 8 HOURS IVPB 03/11/19 06:00 03/18/19 05:59 03/11/19 14:00 Sodium Chloride 1,000 ml @ 100 mls/hr Q10H IV 03/11/19 00:45 04/10/19 00:44 03/11/19 09:36 Allergies: Coded Allergies: No Known Allergies (Unverified , 03/10/19) Subjective awake, alert, responsive, In ICU, Intubated, family at bedside. Objective Last Vital Signs Date Time Temp Pulse Resp B/P (MAP) Pulse Ox O2 Delivery O2 Flow Rate FiO2 03/11/19 15:11 104 20 40 03/11/19 14:30 115/48 (70) 97 03/11/19 12:50 97.5 03/11/19 12:00 Endotracheal Tube 03/10/19 14:05 2.0 Laboratory Tests Test 03/11/19 03:00 03/11/19 09:00 White Blood Count 12.6 K/UL (4.8-10.8) H Red Blood Count 3.64 M/UL (4.20-5.40) L Hemoglobin 10.9 G/DL (12.0-16.0) #L Hematocrit 33.1 % (37.0-47.0) #L Mean Corpuscular Volume 91 FL (80-99) Mean Corpuscular Hemoglobin 29.9 PG (27.0-31.0) Mean Corpuscular Hemoglobin Concent 32.8 G/DL (32.0-36.0) Red Cell Distribution Width 13.2 % (11.6-14.8) Platelet Count 138 K/UL (150-450) L Mean Platelet Volume 8.7 FL (6.5-10.1) Neutrophils (%) (Auto) % (45.0-75.0) Lymphocytes (%) (Auto) % (20.0-45.0) Monocytes (%) (Auto) % (1.0-10.0) Eosinophils (%) (Auto) % (0.0-3.0) Basophils (%) (Auto) % (0.0-2.0) Differential Total Cells Counted 100 Neutrophils % (Manual) 91 % (45-75) H Lymphocytes % (Manual) 5 % (20-45) L Monocytes % (Manual) 4 % (1-10) Eosinophils % (Manual) 0 % (0-3) Basophils % (Manual) 0 % (0-2) Band Neutrophils 0 % (0-8) Platelet Estimate Decreased L Platelet Morphology Normal Hypochromasia 1+ Sodium Level 141 MMOL/L (136-145) Potassium Level 3.1 MMOL/L (3.5-5.1) L Chloride Level 107 MMOL/L (98-107) Carbon Dioxide Level 23 MMOL/L (21-32) Anion Gap 11 mmol/L (5-15) Blood Urea Nitrogen 38 mg/dL (7-18) H Creatinine 1.1 MG/DL (0.55-1.30) Estimat Glomerular Filtration Rate mL/min (>60) Glucose Level 255 MG/DL (74-106) H Calcium Level 6.9 MG/DL (8.5-10.1) #L Total Bilirubin 0.7 MG/DL (0.2-1.0) Direct Bilirubin 0.2 MG/DL (0.0-0.3) Aspartate Amino Transf (AST/SGOT) 107 U/L (15-37) H Alanine Aminotransferase (ALT/SGPT) 109 U/L (12-78) H Alkaline Phosphatase 50 U/L (46-116) Total Protein 4.5 G/DL (6.4-8.2) #L Albumin 2.5 G/DL (3.4-5.0) L Globulin 2.0 g/dL Albumin/Globulin Ratio 1.2 (1.0-2.7) Arterial Blood pH 7.496 (7.350-7.450) Arterial Blood Partial Pressure CO2 25.0 mmHg (35.0-45.0) L Arterial Blood Partial Pressure O2 115.5 mmHg (75.0-100.0) H Arterial Blood HCO3 18.9 mmol/L (22.0-26.0) L Arterial Blood Oxygen Saturation 97.7 % (95-100) Arterial Blood Base Excess -3.1 (-2-2) L Umang Test Positive Microbiology Date/Time Source Procedure Growth Status 03/10/19 13:00 Rectum Received Intake and Output 03/10/19 03/11/19 18:59 06:59 Intake Total 2175 ml 625 ml Output Total 30 ml 335 ml Balance 2145 ml 290 ml Intake IV Total 2175 ml 415 ml Other 210 ml Output Urine Total 30 ml 335 ml # Voids 1 Objective General: No acute distress, awake and alert HEENT: NCAT, sclera anicteric, PERRL, EOMI, ET tube, NG tube. Neck: Supple, no significant jugular venous distention, Lungs: clear to auscultation bilaterally, no Wheeze or Rales. Heart: Regular rate and rhythm, normal S1/S2, no murmur Abdomen: soft, Generalized tenderness, mild distended. midline surgical incision with intact dressing. : Zaragoza cath. Extremities: No Cyanosis , clubbing or edema. Neuro: A&O x 3, Able to move all extremities Skin: warm, no rashes or lesions Psych: Normal mood and affect Assessment/Plan Assessment/Plan ASSESSMENT: This is an 84-year-old female. 1. Perforated abdominal viscus S/P Exploratory laparotomy, Partial omentectomy, and Shane patch for repair of perforated pre-pyloric ulcer (03/10/2019). 2. Acute respiratory Failure. 3. Nausea with vomiting. 4. Diabetes type 2. 5. Hypertension. TREATMENT: 1. Perforated abdominal viscus. A General Surgery consultation has been obtained with Dr. Sheth. S/P Exploratory laparotomy, Partial omentectomy, and Shane patch for repair of perforated pre-pyloric ulcer (03/10/2019). 2. Diabetes type 2. NovoLog sliding scale has been instituted. 3. Hypertension. The patient is currently hypotensive. 4. Respiratory failure. The patient is currently intubated in the intensive care unit. A Pulmonary consultation has been obtained with Dr. Bibiana Pennington. Abx: Marcos Gupta MD Mar 11, 2019 15:48
--- NOTE | 2019-03-11 16:30 | NUR ---
NURSE NOTES: Pt is awake, watching TV while family is at bedside. VS stable. separator tender displays NSR with heart rate in the 80's. Zaragoza catheter continues to drain clear/yellow urine. Pt is afebrile. Pt has been repositioned. Oral care done.
--- NOTE | 2019-03-11 18:30 | NUR ---
NURSE NOTES: Pt was cleaned and repositioned. VS stable. Pt is able to follow commands and respond yes/no by nodding/head movement. Pt denies pain at this time. Family at bedside.
--- NOTE | 2019-03-11 19:05 | NUR ---
HAND-OFF: Report given to Amanda MOON. VS stable. Endorsed plan of care.
--- NOTE | 2019-03-11 19:07 | NUR ---
NURSE NOTES: Received bedside report from SARAI Sadler.Patient stable,awake,alert,SR on monitoring and evaluation advisor,still NPO, NGT remained with 63cm on L nares,BS present in all quadrants on auscultation,ETT on R lips,AC 12 TV 400 FiO2 40% PEEP 5,tolerated settings well,f/cath running toward gravity,IV asymptomatic,intact on R AC 20G running with NS@ 100 ml/hr,bed secured in a low safety position,family at bedside,will continue to monitor and follow POC.
--- NOTE | 2019-03-11 19:23 | General Progress Note ---
Progress Note Progress Note POD #1 s/p ex lap with imelda patch awake intubated on vent note weanig well family at bedside labs noted exam stable dressings intact npo ng tube wean vent rx as written Mike Sheth Mar 11, 2019 19:23
--- NOTE | 2019-03-11 20:56 | NUR ---
NURSE NOTES: Patient sleeping,no s/s of pain,family at bedside.
[2019-03-12] VITALS (24 sets, daily range): BP systolic 106–144; BP diastolic 30–74
--- NOTE | 2019-03-12 | NUR ---
NURSE NOTES: Pt cleaned and turned,position changed,no BM at this time.
--- NOTE | 2019-03-12 02:33 | NUR ---
NURSE NOTES: Pt awake,no pain at this moment noted,son at bedside.
[2019-03-12] MEDS: Piperacillin/Tazobactam 3.375 GM in NS 110 ML IVPB SCH ×3 (06:01→21:50)
[2019-03-12 07:07] LABS: PHOSPHORUS 1.3 MG/DL (2.5-4.9)
--- NOTE | 2019-03-12 07:10 | NUR ---
RESPIRATORY NOTE: Received pt on ordered vent settings. Pt airway is patent and secured. No resp distress noted. Suctioned pt prn. Vent alarms are on and audible. Vent is plugged into red outlet. Will monitor pt progress.
--- NOTE | 2019-03-12 07:19 | NUR ---
HAND-OFF: Report given to SARAI Campo.Patient stable,sleeping.
--- NOTE | 2019-03-12 07:20 | NUR ---
NURSE NOTES: Report received from Amanda Cole RN .Pt resting in bed awake alert orally intubated,on cpap weaning process started since 0700 per Alexis Solomon no resp distress presented,appears to tolerate weaning,Zaragoza cath draining yellow urine ,IV sites to RFA x2 intact with IVF NS at 100 ml/hr,skin dry and hot to touch,with low grade fever,T99.1,cold compress applied to forehead,SR up x2,HOB elevated,bed lock in lowest position,will continue to monitor pt 's breathing.
--- NOTE | 2019-03-12 08:30 | NUR ---
NURSE NOTES: Weaning process done ,tolerated well,for 1 1/2 hr,pt place back on Vent settings,familymber at bedside.
[2019-03-12] MEDS: Heparin 5000 units/ml inj SUBQ SCH ×2 (09:02→21:00)
--- NOTE | 2019-03-12 09:40 | NUR ---
NURSE NOTES: Dr Pennington at bedside,informed re pt's tolerating weaning,ordered to extubate pt.R.T notified, pt 's son at bedside.
[2019-03-12 10:03] LABS: HEMOGLOBIN 9.9 G/DL (12.0-16.0); MEAN CORPUSCULAR VOLUME 93 FL (80-99); PLATELET COUNT 110 K/UL (150-450); RED BLOOD COUNT 3.35 M/UL (4.20-5.40); WHITE BLOOD COUNT 13.1 K/UL (4.8-10.8)
--- NOTE | 2019-03-12 10:05 | NUR ---
RESPIRATORY NOTE: Pt was extubated at this time per MD order. Pt placed on 3Lpm O2 via N/C post-extubation. Pt angel extubation well. No Stridor or any resp distress noted. Suctioned pt PRN. Will monitor pt progress.
[2019-03-12 10:14] LABS: ALBUMIN 1.9 G/DL (3.4-5.0); ALBUMIN/GLOBULIN RATIO 0.7 (1.0-2.7); ASPARTATE AMINO TRANSFERASE 39 U/L (15-37); BLOOD UREA NITROGEN 17 mg/dL (7-18); CHLORIDE 107 MMOL/L (98-107)
[2019-03-12 10:42] LABS: ALANINE AMINOTRANSFERASE 72 U/L (12-78); ALKALINE PHOSPHATASE 55 U/L (46-116); ANION GAP 11 mmol/L (5-15); BILIRUBIN,TOTAL 0.7 MG/DL (0.2-1.0); CALCIUM 7.3 MG/DL (8.5-10.1); CARBON DIOXIDE 24 MMOL/L (21-32); CREATININE 0.7 MG/DL (0.55-1.30); POTASSIUM 2.2 MMOL/L (3.5-5.1); SODIUM 142 MMOL/L (136-145)
--- NOTE | 2019-03-12 11:00 | NUR ---
NURSE NOTES: P.T at bedside working with pt,sat on edge of bed,pt appears tired,
--- NOTE | 2019-03-12 12:35 | NUR ---
HAND-OFF: Report given Yunior Gresham RN. .
--- NOTE | 2019-03-12 12:44 | General Progress Note ---
Progress Note Progress Note leukocytosis labs noted electrolytes being replaced extubated awake, responsive abx pain abd distended wound c/d/i no n/v/f/c on IV Abx - cont ambulate NG tube to LIS rx as written prognosis concerning given condition, major surgery, and recovery will monitor as high risk for complication Mike Sheth Mar 12, 2019 12:44
--- NOTE | 2019-03-12 14:36 | Internal Med Progress Note ---
Subjective Date of Service: Mar 12, 2019 Physician Name PaigeZen amaro Attending Physician Marcos Silva MD Current Medications Medications (Trade) Dose Ordered Sig/Shantelle Route PRN Reason Start Time Stop Time Status Last Admin Dose Admin Acetaminophen (Tylenol) 650 mg Q4H PRN RECTAL FEVER 03/10/19 18:30 04/09/19 18:29 Albuterol/ Ipratropium (Albuterol/ Ipratropium) 3 ml Q4H PRN HHN Shortness of Breath 03/10/19 13:15 03/15/19 13:14 Fluconazole/ Sodium Chloride 100 ml @ 100 mls/hr Q24H IV 03/10/19 22:00 03/17/19 21:59 03/11/19 21:59 Heparin Sodium (Porcine) (Heparin 5000 units/ml) 5,000 units EVERY 12 HOURS SUBQ 03/10/19 21:00 04/09/19 20:59 03/12/19 09:02 Morphine Sulfate (Morphine Sulfate) 2 mg Q1H PRN IVP pain scale 4-6 03/10/19 18:34 03/17/19 18:33 Morphine Sulfate (Morphine Sulfate) 2 mg Q4H PRN IVP Severe Pain (Pain Scale 7-10) 03/10/19 13:15 03/17/19 13:14 03/11/19 12:20 Ondansetron HCl (Zofran) 4 mg Q6H PRN IVP Nausea & Vomiting 03/10/19 13:15 04/09/19 13:14 03/11/19 09:43 Pantoprazole (Protonix) 40 mg BID IVP 03/13/19 18:00 04/12/19 17:59 Piperacillin Sod/ Tazobactam Sod 3.375 gm/Sodium Chloride 110 ml @ 27.5 mls/hr EVERY 8 HOURS IVPB 03/11/19 06:00 03/18/19 05:59 03/12/19 06:01 Potassium Chloride 100 ml @ 100 mls/hr Q1HR IVPB 03/12/19 11:00 03/12/19 14:59 03/12/19 12:03 Sodium Chloride 1,000 ml @ 100 mls/hr Q10H IV 03/11/19 00:45 04/10/19 00:44 03/12/19 06:02 Allergies: Coded Allergies: No Known Allergies (Unverified , 03/10/19) ROS Limited/Unobtainable: No Constitutional: Reports: no symptoms HEENT: Reports: no symptoms Cardiovascular: Reports: no symptoms Respiratory: Reports: no symptoms Gastrointestinal/Abdominal: Reports: no symptoms Genitourinary: Reports: no symptoms Neurologic/Psychiatric: Reports: no symptoms Subjective 84 YO F admitted with abdominal pain. S/P exploratory laparotomy 03/10/19. Cover for Int Med-Dr Silva. ICU. Extubated 03/12/19 Objective Last Vital Signs Date Time Temp Pulse Resp B/P (MAP) Pulse Ox O2 Delivery O2 Flow Rate FiO2 03/12/19 12:00 98.9 88 24 135/69 (91) 99 03/12/19 12:00 Nasal Cannula 3.0 Nasal Cannula 3.0 03/12/19 10:05 32 Laboratory Tests Test 03/12/19 06:00 03/12/19 08:06 White Blood Count 13.1 K/UL (4.8-10.8) H Red Blood Count 3.35 M/UL (4.20-5.40) L Hemoglobin 9.9 G/DL (12.0-16.0) L Hematocrit 31.0 % (37.0-47.0) L Mean Corpuscular Volume 93 FL (80-99) Mean Corpuscular Hemoglobin 29.5 PG (27.0-31.0) Mean Corpuscular Hemoglobin Concent 31.9 G/DL (32.0-36.0) L Red Cell Distribution Width 14.0 % (11.6-14.8) Platelet Count 110 K/UL (150-450) L Mean Platelet Volume 7.6 FL (6.5-10.1) Neutrophils (%) (Auto) % (45.0-75.0) Lymphocytes (%) (Auto) % (20.0-45.0) Monocytes (%) (Auto) % (1.0-10.0) Eosinophils (%) (Auto) % (0.0-3.0) Basophils (%) (Auto) % (0.0-2.0) Differential Total Cells Counted 100 Neutrophils % (Manual) 81 % (45-75) H Lymphocytes % (Manual) 14 % (20-45) L Monocytes % (Manual) 4 % (1-10) Eosinophils % (Manual) 1 % (0-3) Basophils % (Manual) 0 % (0-2) Band Neutrophils 0 % (0-8) Platelet Estimate Decreased L Platelet Morphology Normal Red Blood Cell Morphology Normal Sodium Level 142 MMOL/L (136-145) Potassium Level 2.2 MMOL/L (3.5-5.1) *L Chloride Level 107 MMOL/L (98-107) Carbon Dioxide Level 24 MMOL/L (21-32) Anion Gap 11 mmol/L (5-15) Blood Urea Nitrogen 17 mg/dL (7-18) Creatinine 0.7 MG/DL (0.55-1.30) Estimat Glomerular Filtration Rate mL/min (>60) Glucose Level 215 MG/DL (74-106) H Calcium Level 7.3 MG/DL (8.5-10.1) L Phosphorus Level 1.3 MG/DL (2.5-4.9) L Magnesium Level 1.7 MG/DL (1.8-2.4) L Total Bilirubin 0.7 MG/DL (0.2-1.0) Aspartate Amino Transf (AST/SGOT) 39 U/L (15-37) H Alanine Aminotransferase (ALT/SGPT) 72 U/L (12-78) Alkaline Phosphatase 55 U/L (46-116) Total Protein 4.5 G/DL (6.4-8.2) L Albumin 1.9 G/DL (3.4-5.0) L Globulin 2.6 g/dL Albumin/Globulin Ratio 0.7 (1.0-2.7) L Arterial Blood pH 7.471 (7.350-7.450) Arterial Blood Partial Pressure CO2 32.5 mmHg (35.0-45.0) L Arterial Blood Partial Pressure O2 128.5 mmHg (75.0-100.0) H Arterial Blood HCO3 23.2 mmol/L (22.0-26.0) Arterial Blood Oxygen Saturation 98.1 % (95-100) Arterial Blood Base Excess 0 (-2-2) Umang Test Positive Microbiology Date/Time Source Procedure Growth Status 03/10/19 13:00 Rectum VRE Culture - Final NO VANCOMYCIN RESISTANT ENTEROCOCCUS ... Complete 03/10/19 13:00 Rectum - Final NO CARBAPENEM-RESISTANT ENTEROBACTERI... Complete Intake and Output 03/11/19 03/12/19 18:59 06:59 Intake Total 1310.0 ml 1195.0 ml Output Total 340 ml 350 ml Balance 970.0 ml 845.0 ml Intake IV Total 1310.0 ml 1195.0 ml Output Urine Total 340 ml 350 ml Objective PHYSICAL EXAMINATION: GENERAL: The patient is a well developed, well nourished female who is intubated and sedated. HEENT: Eyes, pupils equal and responsive to light and accommodation. Extraocular movements are intact. NECK: Supple without lymphadenopathy. CHEST: Nasc canula; Few diffuse wheezes bilaterally. Otherwise, without wheezes or rales. CARDIOVASCULAR: Regular rhythm rate. S1-S2 are normal without murmurs, rubs, or gallops. ABDOMEN: NGT; Soft, nontender with decreased bowel sounds. No evidence of hepatosplenomegaly. no rebound or guarding noted. EXTREMITIES: Negative for clubbing, cyanosis, edema. RECTAL/GENITAL: Not performed. NEUROLOGIC: Cranial nerves II through XII are grossly intact without focal deficits. Assessment/Plan Assessment/Plan ASSESSMENT: This is an 84-year-old female. 1. Perforated gastric ulcer 2. Abdominal pain. 3. Nausea with vomiting. 4. Diabetes type 2. 5. Hypertension. TREATMENT: 1. Perforated gastric ulcer. A General Surgery consultation has been obtained with Dr. Sheth. S/P exploratory laparotomy 03/10/19=perforated gastric ulcer. NPO; NGT in place 2. Diabetes type 2. NovoLog sliding scale has been instituted. 3. Hypertension. The patient is currently hypotensive. 4. Respiratory failure. S/P extubation 03/12/19. A Pulmonary consultation has been obtained with Dr. Bibiana Pennington. 5. ICU status 6. replace potassium, phos and mag Zen Paige MD Mar 12, 2019 14:36
[2019-03-12] MEDS ORDERED: 1/2NS w/KCl 20mEq 1000ml 1,000 ML IV SCH (15:00)
--- NOTE | 2019-03-12 15:03 | NUR ---
NURSE NOTES: Dr. Clark aware of patient potassium of 2.2, Phosphorus level of 1.3 and magnesium level of 1.7. will review chart and placed orders. no verbal orders given at this time.
--- NOTE | 2019-03-12 15:18 | Consultation ---
Consult Note Consult Note asked to eval for electrolyte imbalance 84 y old Perf viscous post op in ICU examined data reviewed discussed with RN Anamaria Assessment/Plan Post lap on 03/10 Low K Low Phos Low Mag Anemia DM h/o HTN Mag and K and Phos IV as needed Anemia claudio Keep BP and BS in check per orders El Clark MD Mar 12, 2019 15:18
--- NOTE | 2019-03-12 15:24 | NUR ---
NURSE NOTES: Patient report received from SARAI Conrad. Patient is awake and alert and talking to family, patient knows name, time, place and situation, denies any pain on over surgical wound, dressing remains dry with no oozing noted, patient was extubated today at 1010 and placed on NC at 2L/min, patient has two right hand IV infusion potassium and tko fluids, no oozing or leaking from IV sites noted, patient has a draining Zaragoza with straw clear urine, NG-tube is on Left nares at 51-52cm connected to low intermittent suction, clear white yellowish fluid being suctioned.
--- NOTE | 2019-03-12 15:30 | NUR ---
NURSE NOTES: Called Dr Sheth regarding NGT previously at 62-63 cm. Per Primary RN, NGT is now at 51-52 cm. Notified MD, per MD, repeat KUB STAT. Orders placed
[2019-03-12] MEDS ORDERED: NS 275ml ONE (15:45)
[2019-03-12] MEDS ORDERED: NS 500ML ONE (15:45)
[2019-03-12] MEDS ORDERED: Tubing IV Secondary IV ONE (15:45)
[2019-03-12] MEDS ORDERED: Potassium Phosphate 30 MM in NS 275 ML IV ONE (16:00)
[2019-03-12] MEDS ORDERED: Potassium Phosphate 15 MM in NS 275 ML IV ONE (16:00)
--- NOTE | 2019-03-12 16:29 | NUR ---
PT Note PT lauryn completed, treatment initiated. Patient was able to sit at the EOB; c/o feeling weak. Patient needs PT to increase her muscle strength and balance to improve her functional mobility and gait to enable her to return home with family. Addendum: 03/12/19 at 1630 by RENATO RODRIGUEZ PT Amended: Links added.
--- NOTE | 2019-03-12 17:07 | Diagnostic Imaging Report ---
EXAM: XR Abdomen, 1 View CLINICAL HISTORY: F/U TECHNIQUE: Frontal supine view of the abdomen/pelvis. COMPARISON: No relevant prior studies available. FINDINGS: Gastrointestinal tract: Stool throughout the colon. Bones/joints: Left hip prosthesis. Some lucency around the femoral stem. Probable cement in the femur Soft tissues: Skin anna. Tubes, lines and devices: Enteric tube in the stomach. Zaragoza catheter. IMPRESSION: Stool throughout the colon.
[2019-03-12] MEDS: 1/2NS w/KCl 20mEq 1000ml 1,000 ML IV SCH (17:08)
--- NOTE | 2019-03-12 17:31 | NUR ---
NURSE NOTES: Dr. Sheth notified of KUB result regarding NG-tube, the tube remains in the stomach and is at 51-52cm at the left nares. clear drainage noted in in suction tubing and in canister, no verbal orders given at this time. patient denies any pain over the stomach. iv insfusion started with magnesium, potassium chloride, potassium phosphorus and 1/2ns with kcl.
--- NOTE | 2019-03-12 19:33 | NUR ---
HAND-OFF: Report given to SARAI Martinez. Patient remains awake, alert and talkative. denies any pain over surgical site, .
--- NOTE | 2019-03-12 19:34 | NUR ---
NURSE NOTES: Endorsement received from SARAI Mendez. Patient alert x3. On oxygen 2 LPM oxygen per nasal cannula. No shortness of breath. NGT connected to low intermittent suction. S/P exlap, dressing at abdomen dry and intact. with right AC g 20, right wrist g22, right hand g 20, left hand g 20, left forearm g 20. Ongoing 1/2 NS + KCl 20meqs 75ml/hr, MgSO4 1G bag 1 of 3, KCl bag 2 of 4, KPhos 30mmol bag 1 of 1. Zaragoza catheter draining to urimeter. Head of bed elevated. Call light within reach. Bed locked and in low position. Bed alarm on.
--- NOTE | 2019-03-12 21:23 | NUR ---
NURSE NOTES: Heparin not given due to platelet 110
--- NOTE | 2019-03-12 21:56 | NUR ---
NURSE NOTES: 2nd bag of 3 bags of MgSo4 consumed. 3rd bag unable to remove from the Pyxis. Spoke with Pharmacist Rosendo, as per her she will put another order of 1 bag of MgSO4 so I can remove it from the Pyxis and non admin the previous order of MgSo4.
--- NOTE | 2019-03-12 22:12 | Pulmonolgy Critical Care Note ---
Critical Care - Asmt/Plan Problems: (1) Perforated gastric ulcer (2) Septic shock (3) Perforated abdominal viscus Respiratory: monitor respiratory rate, adjust FIO2, CXR Cardiac: continue to monitor HR/BP Renal: F/U I&O, keep IV fluid Infectious Disease: check cultures Gastrointestinal: continue feedings/current rate Endocrine: monitor blood sugar, continue sliding scale insulin Hematologic: monitor H/H, transfuse if hgb<8.5 Neurologic: PRN Ativan, keep patient comfortable Critical Care - Objective Last 24 Hour Vital Signs Date Time Temp Pulse Resp B/P (MAP) Pulse Ox O2 Delivery O2 Flow Rate FiO2 03/12/19 20:00 Nasal Cannula 2.0 03/12/19 20:00 76 27 120/52 (74) 99 03/12/19 19:00 81 27 109/43 (65) 100 03/12/19 18:00 73 27 106/44 (64) 100 03/12/19 17:00 80 27 109/74 (86) 100 03/12/19 16:00 2.0 03/12/19 16:00 82 03/12/19 16:00 84 28 118/55 (76) 99 03/12/19 16:00 Nasal Cannula 2.0 03/12/19 15:00 88 26 131/54 (79) 99 03/12/19 14:00 97.6 83 26 143/58 (86) 99 03/12/19 13:00 85 25 116/65 (82) 99 03/12/19 12:00 98.9 88 24 135/69 (91) 99 03/12/19 12:00 Nasal Cannula 3.0 Nasal Cannula 3.0 03/12/19 12:00 3.0 03/12/19 11:00 99.5 88 28 142/52 (82) 98 03/12/19 10:05 Nasal Cannula 3.0 32 03/12/19 10:00 93 27 143/56 (85) 99 03/12/19 09:00 85 17 130/50 (76) 98 03/12/19 08:30 99 03/12/19 08:30 94 14 40 03/12/19 08:00 Endotracheal Tube 03/12/19 08:00 40 03/12/19 08:00 99.2 93 28 121/47 (71) 98 03/12/19 08:00 92 03/12/19 07:10 94 14 40 40 03/12/19 07:00 93 28 121/47 (71) 98 03/12/19 06:00 83 17 128/45 (72) 98 03/12/19 05:00 89 16 123/42 (69) 98 03/12/19 04:54 96 14 40 03/12/19 04:00 40 03/12/19 04:00 Endotracheal Tube 03/12/19 04:00 86 15 111/45 (67) 98 03/12/19 03:39 97 03/12/19 03:00 90 15 118/46 (70) 98 03/12/19 02:58 93 14 40 03/12/19 02:00 97 17 123/50 (74) 98 03/12/19 01:00 90 14 122/47 (72) 98 03/12/19 00:44 92 15 40 03/12/19 00:00 Endotracheal Tube 03/12/19 00:00 91 15 112/48 (69) 98 03/11/19 23:20 101 16 40 03/11/19 23:09 105 03/11/19 23:00 91 15 125/51 (75) 97 Status: awake Condition: critical HEENT: atraumatic Lungs: clear Heart: HR/BP stable, HR/BP unstable Abdomen: soft, active bowel sounds, feeding tube Micro: Microbiology Date/Time Source Procedure Growth Status 03/10/19 13:00 Rectum VRE Culture - Final NO VANCOMYCIN RESISTANT ENTEROCOCCUS ... Complete 03/10/19 13:00 Rectum - Final NO CARBAPENEM-RESISTANT ENTEROBACTERI... Complete Critical Care - Subjective ROS Limited/Unobtainable: Yes EKG Rhythm: Sinus Rhythm FI02: 32 Vent Support Breath Rate: 12 Vent Support Mode: AC Vent Tidal Volume: 400 Sputum Amount: Scant PEEP: 5.0 PIP: 14 I&O: Intake and Output 03/11/19 03/12/19 19:00 07:00 Intake Total 1310.0 ml 1195.0 ml Output Total 360 ml 340 ml Balance 950.0 ml 855.0 ml Intake IV Total 1310.0 ml 1195.0 ml Output Urine Total 360 ml 340 ml ET-Tube: 7.5 ET Position: 20 Labs: Laboratory Tests Test 03/12/19 06:00 03/12/19 08:06 White Blood Count 13.1 K/UL (4.8-10.8) H Red Blood Count 3.35 M/UL (4.20-5.40) L Hemoglobin 9.9 G/DL (12.0-16.0) L Hematocrit 31.0 % (37.0-47.0) L Mean Corpuscular Volume 93 FL (80-99) Mean Corpuscular Hemoglobin 29.5 PG (27.0-31.0) Mean Corpuscular Hemoglobin Concent 31.9 G/DL (32.0-36.0) L Red Cell Distribution Width 14.0 % (11.6-14.8) Platelet Count 110 K/UL (150-450) L Mean Platelet Volume 7.6 FL (6.5-10.1) Neutrophils (%) (Auto) % (45.0-75.0) Lymphocytes (%) (Auto) % (20.0-45.0) Monocytes (%) (Auto) % (1.0-10.0) Eosinophils (%) (Auto) % (0.0-3.0) Basophils (%) (Auto) % (0.0-2.0) Differential Total Cells Counted 100 Neutrophils % (Manual) 81 % (45-75) H Lymphocytes % (Manual) 14 % (20-45) L Monocytes % (Manual) 4 % (1-10) Eosinophils % (Manual) 1 % (0-3) Basophils % (Manual) 0 % (0-2) Band Neutrophils 0 % (0-8) Platelet Estimate Decreased L Platelet Morphology Normal Red Blood Cell Morphology Normal Sodium Level 142 MMOL/L (136-145) Potassium Level 2.2 MMOL/L (3.5-5.1) *L Chloride Level 107 MMOL/L (98-107) Carbon Dioxide Level 24 MMOL/L (21-32) Anion Gap 11 mmol/L (5-15) Blood Urea Nitrogen 17 mg/dL (7-18) Creatinine 0.7 MG/DL (0.55-1.30) Estimat Glomerular Filtration Rate mL/min (>60) Glucose Level 215 MG/DL (74-106) H Calcium Level 7.3 MG/DL (8.5-10.1) L Phosphorus Level 1.3 MG/DL (2.5-4.9) L Magnesium Level 1.7 MG/DL (1.8-2.4) L Total Bilirubin 0.7 MG/DL (0.2-1.0) Aspartate Amino Transf (AST/SGOT) 39 U/L (15-37) H Alanine Aminotransferase (ALT/SGPT) 72 U/L (12-78) Alkaline Phosphatase 55 U/L (46-116) Total Protein 4.5 G/DL (6.4-8.2) L Albumin 1.9 G/DL (3.4-5.0) L Globulin 2.6 g/dL Albumin/Globulin Ratio 0.7 (1.0-2.7) L Arterial Blood pH 7.471 (7.350-7.450) Arterial Blood Partial Pressure CO2 32.5 mmHg (35.0-45.0) L Arterial Blood Partial Pressure O2 128.5 mmHg (75.0-100.0) H Arterial Blood HCO3 23.2 mmol/L (22.0-26.0) Arterial Blood Oxygen Saturation 98.1 % (95-100) Arterial Blood Base Excess 0 (-2-2) Umang Test Positive Bibiana Pennington MD Mar 12, 2019 22:11
[2019-03-13] VITALS (19 sets, daily range): BP systolic 93–163; BP diastolic 26–100
--- NOTE | 2019-03-13 | NUR ---
NURSE NOTES: Evening care done. Patient asleep. Vital signs stable.
--- NOTE | 2019-03-13 02:00 | NUR ---
NURSE NOTES: Patient asleep, appears comfortable. No shortness of breath. Abdominal dressing remains dry and intact.
--- NOTE | 2019-03-13 04:00 | NUR ---
NURSE NOTES: Patient asleep. Vital signs stable.
[2019-03-13] MEDS: Piperacillin/Tazobactam 3.375 GM in NS 110 ML IVPB SCH ×3 (05:37→21:01)
--- NOTE | 2019-03-13 06:00 | NUR ---
NURSE NOTES: Patient awake. No complains of pain or discomfort. NGT continues on low intermittent suction, no output noted.
[2019-03-13 07:25] LABS: HEMATOCRIT 29.2 % (37.0-47.0); HEMOGLOBIN 9.4 G/DL (12.0-16.0); MEAN CORPUSCULAR VOLUME 92 FL (80-99); PLATELET COUNT 102 K/UL (150-450); RED BLOOD COUNT 3.18 M/UL (4.20-5.40); RED CELL DISTRIBUTION WIDTH 14.1 % (11.6-14.8); WHITE BLOOD COUNT 8.9 K/UL (4.8-10.8)
--- NOTE | 2019-03-13 07:33 | NUR ---
HAND-OFF: Report given to SARAI Ramsay
[2019-03-13 07:54] LABS: ALANINE AMINOTRANSFERASE 59 U/L (12-78); ALBUMIN 1.6 G/DL (3.4-5.0); ALBUMIN/GLOBULIN RATIO 0.5 (1.0-2.7); ALKALINE PHOSPHATASE 107 U/L (46-116); AMYLASE 43 U/L (25-115); ANION GAP 8 mmol/L (5-15); ASPARTATE AMINO TRANSFERASE 38 U/L (15-37); BILIRUBIN,TOTAL 0.9 MG/DL (0.2-1.0); BLOOD UREA NITROGEN 11 mg/dL (7-18); CALCIUM 7.3 MG/DL (8.5-10.1); CARBON DIOXIDE 24 MMOL/L (21-32); CHLORIDE 106 MMOL/L (98-107); CREATININE 0.6 MG/DL (0.55-1.30); POTASSIUM 3.6 MMOL/L (3.5-5.1); SODIUM 138 MMOL/L (136-145)
--- NOTE | 2019-03-13 08:00 | NUR ---
NURSE NOTES: Patient's family at bedside.
[2019-03-13 08:04] LABS: CREATINE KINASE 98 U/L (26-308); GAMMA GLUTAMYL TRANSPEPTIDASE 345 U/L (5-85)
[2019-03-13 08:15] LABS: CHOLESTEROL 96 MG/DL (< 200); FERRITIN 111 NG/ML (8-388); HDL CHOLESTEROL 6 MG/DL (40-60); PHOSPHORUS 1.3 MG/DL (2.5-4.9); TRIGLYCERIDES 300 MG/DL (30-150)
[2019-03-13 08:45] LABS: % IRON SATURATION 24 % (15-50); IRON 24 ug/dL (50-175); TOTAL IRON BINDING CAPACITY 99 ug/dL (250-450)
[2019-03-13] MEDS: 1/2NS w/KCl 20mEq 1000ml 1,000 ML IV SCH ×2 (08:45→17:46)
[2019-03-13] MEDS: Heparin 5000 units/ml inj SUBQ SCH ×2 (09:00→21:00)
[2019-03-13] MEDS ORDERED: Pantoprazole Inj IVP SCH ×2 (09:00→18:00)
--- NOTE | 2019-03-13 09:00 | NUR ---
NURSE NOTES: Assisted patient with bedpan. With large brown, soft formed stool noted.
--- NOTE | 2019-03-13 09:50 | Diagnostic Imaging Report ---
EXAM: XR Abdomen, 1 Views CLINICAL HISTORY: ABD DIST TECHNIQUE: Frontal view of the abdomen/pelvis . COMPARISON: Abdomen film, 03/12/19 FINDINGS: Gastrointestinal tract: Moderate stool in colon. No bowel obstruction. Bones/joints: Total left hip prosthesis. Mild lumbar scoliosis and degenerative changes. Soft tissues: Vertical surgical staple of the abdomen. Tubes, lines and devices: NG tube tip in the stomach. Zaragoza catheter. IMPRESSION: Moderate stool in colon. No bowel obstruction.
[2019-03-13] MEDS ORDERED: Potassium Phosphate 30 MM in NS 275 ML IV ONE ×2 (12:30→18:28)
--- NOTE | 2019-03-13 12:50 | Nephrology Progress Note ---
Assessment/Plan Problem List: (1) Perforated abdominal viscus (2) Hypokalemia (3) Hypomagnesemia (4) Diabetes mellitus (5) Anemia Assessment Post lap on 03/10 Low K Low Phos Low Mag Anemia DM h/o HTN Plan Mag and K and Phos IV as needed Anemia claudio Keep BP and BS in check per orders Subjective ROS Limited/Unobtainable: No Constitutional: Reports: malaise Objective Objective Last 24 Hour Vital Signs Date Time Temp Pulse Resp B/P (MAP) Pulse Ox O2 Delivery O2 Flow Rate FiO2 03/13/19 12:01 68 18 120/69 (86) 100 03/13/19 12:00 Nasal Cannula 2.0 03/13/19 11:03 64 21 93/54 (67) 100 03/13/19 10:00 63 23 115/52 (73) 99 03/13/19 09:13 66 27 95/54 (68) 100 03/13/19 08:30 98.1 67 27 133/100 (111) 98 03/13/19 08:02 64 26 163/43 (83) 100 03/13/19 08:00 Nasal Cannula 2.0 03/13/19 07:55 64 03/13/19 07:00 63 22 111/39 (63) 100 03/13/19 06:00 57 15 141/26 (64) 100 03/13/19 05:00 59 15 130/35 (66) 100 03/13/19 04:00 60 03/13/19 04:00 Nasal Cannula 2.0 03/13/19 04:00 98.0 62 15 125/39 (67) 100 03/13/19 03:00 58 15 123/26 (58) 100 03/13/19 02:00 59 16 118/37 (64) 100 03/13/19 01:00 63 16 147/36 (73) 100 03/13/19 00:00 Nasal Cannula 2.0 03/13/19 00:00 68 03/13/19 00:00 97.6 68 19 154/36 (75) 100 03/12/19 23:00 68 27 144/30 (68) 98 03/12/19 22:00 74 28 121/58 (79) 99 03/12/19 21:00 75 26 134/49 (77) 98 03/12/19 20:00 Nasal Cannula 2.0 03/12/19 20:00 76 27 120/52 (74) 99 03/12/19 20:00 75 03/12/19 19:00 81 27 109/43 (65) 100 03/12/19 18:00 73 27 106/44 (64) 100 03/12/19 17:00 80 27 109/74 (86) 100 03/12/19 16:00 2.0 03/12/19 16:00 82 03/12/19 16:00 84 28 118/55 (76) 99 03/12/19 16:00 Nasal Cannula 2.0 03/12/19 15:00 88 26 131/54 (79) 99 03/12/19 14:00 97.6 83 26 143/58 (86) 99 03/12/19 13:00 85 25 116/65 (82) 99 Intake and Output 03/12/19 03/13/19 19:00 07:00 Intake Total 535 ml 1110.0 ml Output Total 990 ml 1075 ml Balance -455 ml 35.0 ml Intake IV Total 475 ml 1110.0 ml Other 60 ml Output Urine Total 990 ml 1075 ml Laboratory Tests 03/13/19 06:40: White Blood Count 8.9, Red Blood Count 3.18L, Hemoglobin 9.4L, Hematocrit 29.2L , Mean Corpuscular Volume 92, Mean Corpuscular Hemoglobin 29.6, Mean Corpuscular Hemoglobin Concent 32.3, Red Cell Distribution Width 14.1, Platelet Count 102L, Mean Platelet Volume 8.1, Neutrophils (%) (Auto) , Lymphocytes (%) ( Auto) , Monocytes (%) (Auto) , Eosinophils (%) (Auto) , Basophils (%) (Auto) , Differential Total Cells Counted 100, Neutrophils % (Manual) 86H, Lymphocytes % (Manual) 7L, Monocytes % (Manual) 5, Eosinophils % (Manual) 2, Basophils % ( Manual) 0, Band Neutrophils 0, Platelet Estimate DecreasedL, Platelet Morphology Normal, Red Blood Cell Morphology Normal, Prothrombin Time 10.7, Prothromb Time International Ratio 1.0, Activated Partial Thromboplast Time 38H , Sodium Level 138, Potassium Level 3.6#, Chloride Level 106, Carbon Dioxide Level 24, Anion Gap 8, Blood Urea Nitrogen 11, Creatinine 0.6, Estimat Glomerular Filtration Rate , Glucose Level 195H, Hemoglobin A1c 10.2H, Uric Acid 1.4L, Calcium Level 7.3L, Phosphorus Level 1.3L, Magnesium Level 2.8H, Iron Level 24L, Total Iron Binding Capacity 99L, Percent Iron Saturation 24, Unsaturated Iron Binding 75L, Ferritin 111, Total Bilirubin 0.9, Gamma Glutamyl Transpeptidase 345H, Aspartate Amino Transf (AST/SGOT) 38H, Alanine Aminotransferase (ALT/SGPT) 59, Alkaline Phosphatase 107, Total Creatine Kinase 98, Troponin I 0.000, C-Reactive Protein, Quantitative > 70.0H, Pro-B-Type Natriuretic Peptide 836H, Total Protein 4.6L, Albumin 1.6L, Globulin 3.0, Albumin/Globulin Ratio 0.5L, Triglycerides Level 300H, Cholesterol Level 96, LDL Cholesterol 41, HDL Cholesterol 6L, Cholesterol/HDL Ratio 16.0H, Amylase Level 43, Lipase 107, Vitamin B12 Level > 2000H, Folate 19.1 Height (Feet): 5 Height (Inches): 0.00 Weight (Pounds): 120 General Appearance: no apparent distress Cardiovascular: normal rate Respiratory/Chest: decreased breath sounds Abdomen: distended El Clark MD Mar 13, 2019 12:50
--- NOTE | 2019-03-13 13:03 | Internal Med Progress Note ---
Subjective Date of Service: Mar 13, 2019 Physician Name Paige,Zen Attending Physician Marcos Silva MD Current Medications Medications (Trade) Dose Ordered Sig/Shantelle Route PRN Reason Start Time Stop Time Status Last Admin Dose Admin Acetaminophen (Tylenol) 650 mg Q4H PRN RECTAL FEVER 03/10/19 18:30 04/09/19 18:29 Albuterol/ Ipratropium (Albuterol/ Ipratropium) 3 ml Q4H PRN HHN Shortness of Breath 03/10/19 13:15 03/15/19 13:14 Fluconazole/ Sodium Chloride 100 ml @ 100 mls/hr Q24H IV 03/10/19 22:00 03/17/19 21:59 03/12/19 22:25 Heparin Sodium (Porcine) (Heparin 5000 units/ml) 5,000 units EVERY 12 HOURS SUBQ 03/10/19 21:00 04/09/19 20:59 03/12/19 09:02 Morphine Sulfate (Morphine Sulfate) 2 mg Q1H PRN IVP pain scale 4-6 03/10/19 18:34 03/17/19 18:33 Morphine Sulfate (Morphine Sulfate) 2 mg Q4H PRN IVP Severe Pain (Pain Scale 7-10) 03/10/19 13:15 03/17/19 13:14 03/11/19 12:20 Ondansetron HCl (Zofran) 4 mg Q6H PRN IVP Nausea & Vomiting 03/10/19 13:15 04/09/19 13:14 03/11/19 09:43 Pantoprazole (Protonix) 40 mg EVERY 12 HOURS IVP 03/13/19 09:00 04/12/19 17:59 03/13/19 09:10 Piperacillin Sod/ Tazobactam Sod 3.375 gm/Sodium Chloride 110 ml @ 27.5 mls/hr EVERY 8 HOURS IVPB 03/11/19 06:00 03/18/19 05:59 03/13/19 05:37 Potassium Phosphate 30 mm/ Sodium Chloride 285 ml @ 47.5 mls/hr ONCE ONCE IV 03/13/19 12:30 03/13/19 18:29 03/13/19 12:30 Sodium 1,000 ml @ 75 mls/hr [id number] IV 03/13/19 16:00 04/11/19 15:59 03/13/19 08:45 Allergies: Coded Allergies: No Known Allergies (Unverified , 03/10/19) ROS Limited/Unobtainable: No Constitutional: Reports: no symptoms HEENT: Reports: no symptoms Cardiovascular: Reports: no symptoms Respiratory: Reports: no symptoms Gastrointestinal/Abdominal: Reports: abdominal pain Genitourinary: Reports: no symptoms Neurologic/Psychiatric: Reports: no symptoms Subjective 84 YO F admitted with abdominal pain. S/P exploratory laparotomy 03/10/19. Cover for Int Marcus-Dr Silva. ICU. Extubated 03/12/19 Objective Last Vital Signs Date Time Temp Pulse Resp B/P (MAP) Pulse Ox O2 Delivery O2 Flow Rate FiO2 03/13/19 12:01 68 18 120/69 (86) 100 03/13/19 12:00 Nasal Cannula 2.0 03/13/19 08:30 98.1 03/12/19 10:05 32 Laboratory Tests Test 03/13/19 06:40 White Blood Count 8.9 K/UL (4.8-10.8) Red Blood Count 3.18 M/UL (4.20-5.40) L Hemoglobin 9.4 G/DL (12.0-16.0) L Hematocrit 29.2 % (37.0-47.0) L Mean Corpuscular Volume 92 FL (80-99) Mean Corpuscular Hemoglobin 29.6 PG (27.0-31.0) Mean Corpuscular Hemoglobin Concent 32.3 G/DL (32.0-36.0) Red Cell Distribution Width 14.1 % (11.6-14.8) Platelet Count 102 K/UL (150-450) L Mean Platelet Volume 8.1 FL (6.5-10.1) Neutrophils (%) (Auto) % (45.0-75.0) Lymphocytes (%) (Auto) % (20.0-45.0) Monocytes (%) (Auto) % (1.0-10.0) Eosinophils (%) (Auto) % (0.0-3.0) Basophils (%) (Auto) % (0.0-2.0) Differential Total Cells Counted 100 Neutrophils % (Manual) 86 % (45-75) H Lymphocytes % (Manual) 7 % (20-45) L Monocytes % (Manual) 5 % (1-10) Eosinophils % (Manual) 2 % (0-3) Basophils % (Manual) 0 % (0-2) Band Neutrophils 0 % (0-8) Platelet Estimate Decreased L Platelet Morphology Normal Red Blood Cell Morphology Normal Prothrombin Time 10.7 SEC (9.30-11.50) Prothromb Time International Ratio 1.0 (0.9-1.1) Activated Partial Thromboplast Time 38 SEC (23-33) H Sodium Level 138 MMOL/L (136-145) Potassium Level 3.6 MMOL/L (3.5-5.1) # Chloride Level 106 MMOL/L (98-107) Carbon Dioxide Level 24 MMOL/L (21-32) Anion Gap 8 mmol/L (5-15) Blood Urea Nitrogen 11 mg/dL (7-18) Creatinine 0.6 MG/DL (0.55-1.30) Estimat Glomerular Filtration Rate mL/min (>60) Glucose Level 195 MG/DL (74-106) H Hemoglobin A1c 10.2 % (4.3-6.0) H Uric Acid 1.4 MG/DL (2.6-7.2) L Calcium Level 7.3 MG/DL (8.5-10.1) L Phosphorus Level 1.3 MG/DL (2.5-4.9) L Magnesium Level 2.8 MG/DL (1.8-2.4) H Iron Level 24 ug/dL (50-175) L Total Iron Binding Capacity 99 ug/dL (250-450) L Percent Iron Saturation 24 % (15-50) Unsaturated Iron Binding 75 ug/dL (112-346) L Ferritin 111 NG/ML (8-388) Total Bilirubin 0.9 MG/DL (0.2-1.0) Gamma Glutamyl Transpeptidase 345 U/L (5-85) H Aspartate Amino Transf (AST/SGOT) 38 U/L (15-37) H Alanine Aminotransferase (ALT/SGPT) 59 U/L (12-78) Alkaline Phosphatase 107 U/L (46-116) Total Creatine Kinase 98 U/L (26-308) Troponin I 0.000 ng/mL (0.000-0.056) C-Reactive Protein, Quantitative > 70.0 mg/dL (0.00-0.90) H Pro-B-Type Natriuretic Peptide 836 pg/mL (0-125) H Total Protein 4.6 G/DL (6.4-8.2) L Albumin 1.6 G/DL (3.4-5.0) L Globulin 3.0 g/dL Albumin/Globulin Ratio 0.5 (1.0-2.7) L Triglycerides Level 300 MG/DL (30-150) H Cholesterol Level 96 MG/DL (< 200) LDL Cholesterol 41 mg/dL (<100) HDL Cholesterol 6 MG/DL (40-60) L Cholesterol/HDL Ratio 16.0 (3.3-4.4) H Amylase Level 43 U/L (25-115) Lipase 107 U/L (73-393) Vitamin B12 Level > 2000 PG/ML (193-986) H Folate 19.1 NG/ML (8.6-58.9) Intake and Output 03/12/19 03/13/19 19:00 07:00 Intake Total 535 ml 1110.0 ml Output Total 990 ml 1075 ml Balance -455 ml 35.0 ml Intake IV Total 475 ml 1110.0 ml Other 60 ml Output Urine Total 990 ml 1075 ml Objective PHYSICAL EXAMINATION: GENERAL: The patient is a well developed, well nourished female who is intubated and sedated. HEENT: Eyes, pupils equal and responsive to light and accommodation. Extraocular movements are intact. NECK: Supple without lymphadenopathy. CHEST: Nasc canula; Few diffuse wheezes bilaterally. Otherwise, without wheezes or rales. CARDIOVASCULAR: Regular rhythm rate. S1-S2 are normal without murmurs, rubs, or gallops. ABDOMEN: NGT; Soft, nontender with decreased bowel sounds. No evidence of hepatosplenomegaly. no rebound or guarding noted. EXTREMITIES: Negative for clubbing, cyanosis, edema. RECTAL/GENITAL: Not performed. NEUROLOGIC: Cranial nerves II through XII are grossly intact without focal deficits. Assessment/Plan Assessment/Plan ASSESSMENT: This is an 84-year-old female. 1. Perforated gastric ulcer 2. Abdominal pain. 3. Nausea with vomiting. 4. Diabetes type 2. 5. Hypertension. TREATMENT: 1. Perforated gastric ulcer. A General Surgery consultation has been obtained with Dr. Sheth. S/P exploratory laparotomy 03/10/19=perforated gastric ulcer. NPO; NGT in place 2. Diabetes type 2. NovoLog sliding scale has been instituted. 3. Hypertension. The patient is currently hypotensive. 4. Respiratory failure. S/P extubation 03/12/19. A Pulmonary consultation has been obtained with Dr. Bibiana Pennington. 5. ICU status 6. replace potassium, phos and mag 7. Transfer to Med/surg Zen Paige MD Mar 13, 2019 13:03
--- NOTE | 2019-03-13 13:13 | Cardiology Report ---
APPROVED REPORT EKG Measurement Heart [id number] Normal sinus rhythm Cannot rule out Anterior infarct, age undetermined Abnormal ECG
--- NOTE | 2019-03-13 14:14 | Surgery Progress Note ---
Surgery Progress Note Subjective Procedure Performed ex lap with imelda patch, washout, omentectomy Additional Comments leukocytosis resolved exam improved less pain had BM Objective Last 24 Hour Vital Signs Date Time Temp Pulse Resp B/P (MAP) Pulse Ox O2 Delivery O2 Flow Rate FiO2 03/13/19 13:00 75 18 151/40 (77) 100 03/13/19 12:01 68 18 120/69 (86) 100 03/13/19 12:00 Nasal Cannula 2.0 03/13/19 11:03 64 21 93/54 (67) 100 03/13/19 10:00 63 23 115/52 (73) 99 03/13/19 09:13 66 27 95/54 (68) 100 03/13/19 08:30 98.1 67 27 133/100 (111) 98 03/13/19 08:02 64 26 163/43 (83) 100 03/13/19 08:00 Nasal Cannula 2.0 03/13/19 07:55 64 03/13/19 07:00 63 22 111/39 (63) 100 03/13/19 06:00 57 15 141/26 (64) 100 03/13/19 05:00 59 15 130/35 (66) 100 03/13/19 04:00 60 03/13/19 04:00 Nasal Cannula 2.0 03/13/19 04:00 98.0 62 15 125/39 (67) 100 03/13/19 03:00 58 15 123/26 (58) 100 03/13/19 02:00 59 16 118/37 (64) 100 03/13/19 01:00 63 16 147/36 (73) 100 03/13/19 00:00 Nasal Cannula 2.0 03/13/19 00:00 68 03/13/19 00:00 97.6 68 19 154/36 (75) 100 03/12/19 23:00 68 27 144/30 (68) 98 03/12/19 22:00 74 28 121/58 (79) 99 03/12/19 21:00 75 26 134/49 (77) 98 03/12/19 20:00 Nasal Cannula 2.0 03/12/19 20:00 76 27 120/52 (74) 99 03/12/19 20:00 75 03/12/19 19:00 81 27 109/43 (65) 100 03/12/19 18:00 73 27 106/44 (64) 100 03/12/19 17:00 80 27 109/74 (86) 100 03/12/19 16:00 2.0 03/12/19 16:00 82 03/12/19 16:00 84 28 118/55 (76) 99 03/12/19 16:00 Nasal Cannula 2.0 03/12/19 15:00 88 26 131/54 (79) 99 I&O Intake and Output 03/12/19 03/13/19 19:00 07:00 Intake Total 535 ml 1110.0 ml Output Total 990 ml 1075 ml Balance -455 ml 35.0 ml Intake IV Total 475 ml 1110.0 ml Other 60 ml Output Urine Total 990 ml 1075 ml Dressing: dry Wound: clean Cardiovascular: RSR Respiratory: clear Abdomen: soft, distended, tenderness, decreased bowel sounds Extremities: no tenderness, no cyanosis Laboratory Tests Test 03/13/19 06:40 White Blood Count 8.9 K/UL (4.8-10.8) Red Blood Count 3.18 M/UL (4.20-5.40) L Hemoglobin 9.4 G/DL (12.0-16.0) L Hematocrit 29.2 % (37.0-47.0) L Mean Corpuscular Volume 92 FL (80-99) Mean Corpuscular Hemoglobin 29.6 PG (27.0-31.0) Mean Corpuscular Hemoglobin Concent 32.3 G/DL (32.0-36.0) Red Cell Distribution Width 14.1 % (11.6-14.8) Platelet Count 102 K/UL (150-450) L Mean Platelet Volume 8.1 FL (6.5-10.1) Neutrophils (%) (Auto) % (45.0-75.0) Lymphocytes (%) (Auto) % (20.0-45.0) Monocytes (%) (Auto) % (1.0-10.0) Eosinophils (%) (Auto) % (0.0-3.0) Basophils (%) (Auto) % (0.0-2.0) Differential Total Cells Counted 100 Neutrophils % (Manual) 86 % (45-75) H Lymphocytes % (Manual) 7 % (20-45) L Monocytes % (Manual) 5 % (1-10) Eosinophils % (Manual) 2 % (0-3) Basophils % (Manual) 0 % (0-2) Band Neutrophils 0 % (0-8) Platelet Estimate Decreased L Platelet Morphology Normal Red Blood Cell Morphology Normal Prothrombin Time 10.7 SEC (9.30-11.50) Prothromb Time International Ratio 1.0 (0.9-1.1) Activated Partial Thromboplast Time 38 SEC (23-33) H Sodium Level 138 MMOL/L (136-145) Potassium Level 3.6 MMOL/L (3.5-5.1) # Chloride Level 106 MMOL/L (98-107) Carbon Dioxide Level 24 MMOL/L (21-32) Anion Gap 8 mmol/L (5-15) Blood Urea Nitrogen 11 mg/dL (7-18) Creatinine 0.6 MG/DL (0.55-1.30) Estimat Glomerular Filtration Rate mL/min (>60) Glucose Level 195 MG/DL (74-106) H Hemoglobin A1c 10.2 % (4.3-6.0) H Uric Acid 1.4 MG/DL (2.6-7.2) L Calcium Level 7.3 MG/DL (8.5-10.1) L Phosphorus Level 1.3 MG/DL (2.5-4.9) L Magnesium Level 2.8 MG/DL (1.8-2.4) H Iron Level 24 ug/dL (50-175) L Total Iron Binding Capacity 99 ug/dL (250-450) L Percent Iron Saturation 24 % (15-50) Unsaturated Iron Binding 75 ug/dL (112-346) L Ferritin 111 NG/ML (8-388) Total Bilirubin 0.9 MG/DL (0.2-1.0) Gamma Glutamyl Transpeptidase 345 U/L (5-85) H Aspartate Amino Transf (AST/SGOT) 38 U/L (15-37) H Alanine Aminotransferase (ALT/SGPT) 59 U/L (12-78) Alkaline Phosphatase 107 U/L (46-116) Total Creatine Kinase 98 U/L (26-308) Troponin I 0.000 ng/mL (0.000-0.056) C-Reactive Protein, Quantitative > 70.0 mg/dL (0.00-0.90) H Pro-B-Type Natriuretic Peptide 836 pg/mL (0-125) H Total Protein 4.6 G/DL (6.4-8.2) L Albumin 1.6 G/DL (3.4-5.0) L Globulin 3.0 g/dL Albumin/Globulin Ratio 0.5 (1.0-2.7) L Triglycerides Level 300 MG/DL (30-150) H Cholesterol Level 96 MG/DL (< 200) LDL Cholesterol 41 mg/dL (<100) HDL Cholesterol 6 MG/DL (40-60) L Cholesterol/HDL Ratio 16.0 (3.3-4.4) H Amylase Level 43 U/L (25-115) Lipase 107 U/L (73-393) Vitamin B12 Level > 2000 PG/ML (193-986) H Folate 19.1 NG/ML (8.6-58.9) Assessment Post-op Diagnosis perforated prepyloric gastric ulcer Plan Problems: (1) Peritonitis Assessment & Plan: 84F with perforated abdominal viscus likely gastric perforation based on CT findings s/p imelda patch recovering labs improved exam improved NG tube stays for a few more days. low intermittent suction. okay to gravity when ambulatory okay to ambulate d/c aiden NPO thank you (2) Perforated abdominal viscus Mike Sheth Mar 13, 2019 14:14
--- NOTE | 2019-03-13 16:22 | Infectious Diseases Prog Note ---
Assessment/Plan Assessment/Plan Assessment: Perforated pre-pyloric gastric ulcer -03/10 SP 03/10 SP Exploratory Laparotomy, Abdominal washout. Partial omentectomy. Shane patch for repair of perforated pre-pyloric ulcer. -03/10 CT abd/p: Free intraperitoneal gas. Etiology not completely certain, but gas within and extending from the anterior gastric antral wall is suspicious for a perforated gastric ulcer. Perforated descending colon diverticulitis also possible but deemed much less likely. Free intraperitoneal fluid, presumably related to the above. Fatty liver. Basilar pulmonary parenchymal groundglass opacities. This could indicate pulmonary edema, among other possibilities. Subcentimeter low-attenuation renal lesions, too small to characterize, most likely benign simple cyst. No further follow-up necessary. 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 Afebrile Mild leukocytosis, SP -u/a neg -CXR: Bilateral basilar atelectatic changes VDRF, post-op; extubated 03/12 DARRON Dm2 HTN Plan: -COntinue Zosyn #4/5 periop -03/10 SP IV Vancomycin #1, Ancef x1 -f/u cx -Monitor CBC/CMP, temperatures -ICU/ETT care -Sx f/u -wound care per surgical team -aspiration precautions Thank you for this consultation. Will continue to follow along with you. Discussed with RN Subjective Allergies: Coded Allergies: No Known Allergies (Unverified , 03/10/19) Subjective afebrile remains in ICU extubated yesterday leukocytosis resolved Objective Vital Signs Last 24 Hour Vital Signs Date Time Temp Pulse Resp B/P (MAP) Pulse Ox O2 Delivery O2 Flow Rate FiO2 03/13/19 14:00 98.5 71 18 128/60 (82) 100 03/13/19 13:00 75 18 151/40 (77) 100 03/13/19 12:01 68 18 120/69 (86) 100 03/13/19 12:00 Nasal Cannula 2.0 03/13/19 11:45 66 03/13/19 11:03 64 21 93/54 (67) 100 03/13/19 10:00 63 23 115/52 (73) 99 03/13/19 09:13 66 27 95/54 (68) 100 03/13/19 08:30 98.1 67 27 133/100 (111) 98 03/13/19 08:02 64 26 163/43 (83) 100 03/13/19 08:00 Nasal Cannula 2.0 03/13/19 07:55 64 03/13/19 07:00 63 22 111/39 (63) 100 03/13/19 06:00 57 15 141/26 (64) 100 03/13/19 05:00 59 15 130/35 (66) 100 03/13/19 04:00 60 03/13/19 04:00 Nasal Cannula 2.0 03/13/19 04:00 98.0 62 15 125/39 (67) 100 03/13/19 03:00 58 15 123/26 (58) 100 03/13/19 02:00 59 16 118/37 (64) 100 03/13/19 01:00 63 16 147/36 (73) 100 03/13/19 00:00 Nasal Cannula 2.0 03/13/19 00:00 68 03/13/19 00:00 97.6 68 19 154/36 (75) 100 03/12/19 23:00 68 27 144/30 (68) 98 03/12/19 22:00 74 28 121/58 (79) 99 03/12/19 21:00 75 26 134/49 (77) 98 03/12/19 20:00 Nasal Cannula 2.0 03/12/19 20:00 76 27 120/52 (74) 99 03/12/19 20:00 75 03/12/19 19:00 81 27 109/43 (65) 100 03/12/19 18:00 73 27 106/44 (64) 100 03/12/19 17:00 80 27 109/74 (86) 100 Height (Feet): 5 Height (Inches): 0.00 Weight (Pounds): 120 Objective General appearance: alert, cooperative, no distress, appears stated age Head: Normocephalic, without obvious abnormality, atraumatic Eyes: conjunctivae/corneas clear. PERRL, EOM's intact. Fundi benign Throat: Lips, mucosa, and tongue normal. Teeth and gums normal Neck: supple, symmetrical, trachea midline, no adenopathy, thyroid: not enlarged, symmetric, no tenderness/mass/nodules, no carotid bruit and no JVD Lungs: clear to auscultation bilaterally Heart: regular rate and rhythm, S1, S2 normal, no murmur, click, rub or gallop Abdomen: soft, peritonitis with tender. Bowel sounds normal. No masses, no organomegaly Extremities: extremities normal, atraumatic, no cyanosis or edema Pulses: 2+ and symmetric Skin: Skin color, texture, turgor normal. No rashes or lesions Neurologic: Grossly normal Laboratory Tests Test 03/13/19 06:40 White Blood Count 8.9 K/UL (4.8-10.8) Red Blood Count 3.18 M/UL (4.20-5.40) L Hemoglobin 9.4 G/DL (12.0-16.0) L Hematocrit 29.2 % (37.0-47.0) L Mean Corpuscular Volume 92 FL (80-99) Mean Corpuscular Hemoglobin 29.6 PG (27.0-31.0) Mean Corpuscular Hemoglobin Concent 32.3 G/DL (32.0-36.0) Red Cell Distribution Width 14.1 % (11.6-14.8) Platelet Count 102 K/UL (150-450) L Mean Platelet Volume 8.1 FL (6.5-10.1) Neutrophils (%) (Auto) % (45.0-75.0) Lymphocytes (%) (Auto) % (20.0-45.0) Monocytes (%) (Auto) % (1.0-10.0) Eosinophils (%) (Auto) % (0.0-3.0) Basophils (%) (Auto) % (0.0-2.0) Differential Total Cells Counted 100 Neutrophils % (Manual) 86 % (45-75) H Lymphocytes % (Manual) 7 % (20-45) L Monocytes % (Manual) 5 % (1-10) Eosinophils % (Manual) 2 % (0-3) Basophils % (Manual) 0 % (0-2) Band Neutrophils 0 % (0-8) Platelet Estimate Decreased L Platelet Morphology Normal Red Blood Cell Morphology Normal Prothrombin Time 10.7 SEC (9.30-11.50) Prothromb Time International Ratio 1.0 (0.9-1.1) Activated Partial Thromboplast Time 38 SEC (23-33) H Sodium Level 138 MMOL/L (136-145) Potassium Level 3.6 MMOL/L (3.5-5.1) # Chloride Level 106 MMOL/L (98-107) Carbon Dioxide Level 24 MMOL/L (21-32) Anion Gap 8 mmol/L (5-15) Blood Urea Nitrogen 11 mg/dL (7-18) Creatinine 0.6 MG/DL (0.55-1.30) Estimat Glomerular Filtration Rate mL/min (>60) Glucose Level 195 MG/DL (74-106) H Hemoglobin A1c 10.2 % (4.3-6.0) H Uric Acid 1.4 MG/DL (2.6-7.2) L Calcium Level 7.3 MG/DL (8.5-10.1) L Phosphorus Level 1.3 MG/DL (2.5-4.9) L Magnesium Level 2.8 MG/DL (1.8-2.4) H Iron Level 24 ug/dL (50-175) L Total Iron Binding Capacity 99 ug/dL (250-450) L Percent Iron Saturation 24 % (15-50) Unsaturated Iron Binding 75 ug/dL (112-346) L Ferritin 111 NG/ML (8-388) Total Bilirubin 0.9 MG/DL (0.2-1.0) Gamma Glutamyl Transpeptidase 345 U/L (5-85) H Aspartate Amino Transf (AST/SGOT) 38 U/L (15-37) H Alanine Aminotransferase (ALT/SGPT) 59 U/L (12-78) Alkaline Phosphatase 107 U/L (46-116) Total Creatine Kinase 98 U/L (26-308) Troponin I 0.000 ng/mL (0.000-0.056) C-Reactive Protein, Quantitative > 70.0 mg/dL (0.00-0.90) H Pro-B-Type Natriuretic Peptide 836 pg/mL (0-125) H Total Protein 4.6 G/DL (6.4-8.2) L Albumin 1.6 G/DL (3.4-5.0) L Globulin 3.0 g/dL Albumin/Globulin Ratio 0.5 (1.0-2.7) L Triglycerides Level 300 MG/DL (30-150) H Cholesterol Level 96 MG/DL (< 200) LDL Cholesterol 41 mg/dL (<100) HDL Cholesterol 6 MG/DL (40-60) L Cholesterol/HDL Ratio 16.0 (3.3-4.4) H Amylase Level 43 U/L (25-115) Lipase 107 U/L (73-393) Vitamin B12 Level > 2000 PG/ML (193-986) H Folate 19.1 NG/ML (8.6-58.9) Current Medications Medications (Trade) Dose Ordered Sig/Shantelle Route PRN Reason Start Time Stop Time Status Last Admin Dose Admin Acetaminophen (Tylenol) 650 mg Q4H PRN RECTAL FEVER 03/10/19 18:30 04/09/19 18:29 Albuterol/ Ipratropium (Albuterol/ Ipratropium) 3 ml Q4H PRN HHN Shortness of Breath 03/10/19 13:15 03/15/19 13:14 Fluconazole/ Sodium Chloride 100 ml @ 100 mls/hr Q24H IV 03/10/19 22:00 03/17/19 21:59 03/12/19 22:25 Heparin Sodium (Porcine) (Heparin 5000 units/ml) 5,000 units EVERY 12 HOURS SUBQ 03/10/19 21:00 04/09/19 20:59 03/12/19 09:02 Morphine Sulfate (Morphine Sulfate) 2 mg Q1H PRN IVP pain scale 4-6 03/10/19 18:34 03/17/19 18:33 Morphine Sulfate (Morphine Sulfate) 2 mg Q4H PRN IVP Severe Pain (Pain Scale 7-10) 03/10/19 13:15 03/17/19 13:14 03/11/19 12:20 Ondansetron HCl (Zofran) 4 mg Q6H PRN IVP Nausea & Vomiting 03/10/19 13:15 04/09/19 13:14 03/11/19 09:43 Pantoprazole (Protonix) 40 mg EVERY 12 HOURS IVP 03/13/19 09:00 04/12/19 17:59 03/13/19 09:10 Piperacillin Sod/ Tazobactam Sod 3.375 gm/Sodium Chloride 110 ml @ 27.5 mls/hr EVERY 8 HOURS IVPB 03/11/19 06:00 03/18/19 05:59 03/13/19 13:43 Potassium Phosphate 30 mm/ Sodium Chloride 285 ml @ 47.5 mls/hr ONCE ONCE IV 03/13/19 12:30 03/13/19 18:29 03/13/19 12:30 Sodium 1,000 ml @ 75 mls/hr [id number] IV 03/13/19 16:00 04/11/19 15:59 03/13/19 08:45 Janette Stallworth M.D. Mar 13, 2019 16:22
--- NOTE | 2019-03-13 17:00 | NUR ---
NURSE NOTES: Received report from Sobia MOON, pt laying in bed a/a/o x4. with no signs of distress or other issue at this time. NGT in place to low intermittent suction. Zaragoza cath in place draining well. surgical site intact. RN will review orders and will carryon. call light within reach, bed in lowest position. side rales up x2. family at bedside. I will f/u as needed.
--- NOTE | 2019-03-13 17:10 | NUR ---
TRANSFER TO FLOOR: Patient transferred to MED SURG room 321-1, per Dr. Pennington. Report given to SARAI Segal. No Belongings reviewed. Medications given to SARAI Segal. Family at bedside and informed of transfer. Remains on nasal cannula at 2LPM. In stable condition. Left nare NGT connected to low intermittent suction.
[2019-03-13] MEDS ORDERED: Albuterol/Ipratropium 3ml neb HHN PRN (17:15)
[2019-03-13] MEDS ORDERED: Tubing IV Secondary IV ONE (17:49)
[2019-03-13] MEDS ORDERED: Acetaminophen 650 MG SUPP RECTAL PRN (18:30)
--- NOTE | 2019-03-13 19:38 | NUR ---
HAND-OFF: Report given to Moe Holguin pt in stable condition. family at bedside.
--- NOTE | 2019-03-13 20:14 | NUR ---
NURSE NOTES: Received report from SARAI Segal. Patient is resting in bed. All IV sites intact running fluids 1/2 NS +20KCl. NG tube connected to low intermittent suction draining clear green liquid. Abdomen is soft and round with midline anna intact with no redness or swelling. Patient denies pain or SOB. VSS. Family at bedside
[2019-03-13] MEDS: Pantoprazole Inj IVP SCH (20:57)
[2019-03-13] MEDS: Morphine Sulfate 2mg/ml Inj(IV/IM USE ONLY) IVP PRN (21:41)
[2019-03-14] VITALS: BP 131/64
[2019-03-14 04:00] VITALS: BP 121/70
[2019-03-14 05:35] LABS: BASOPHILS % (AUTO) 0.8 % (0.0-2.0); EOSINOPHILS % (AUTO) 1.5 % (0.0-3.0); HEMATOCRIT 32.1 % (37.0-47.0); HEMOGLOBIN 10.1 G/DL (12.0-16.0); LYMPHOCYTES % (AUTO) 9.1 % (20.0-45.0); MEAN CORPUSCULAR VOLUME 92 FL (80-99); MONOCYTES % (AUTO) 6.4 % (1.0-10.0); NEUTROPHILS % (AUTO) 82.1 % (45.0-75.0); PLATELET COUNT 110 K/UL (150-450); RED BLOOD COUNT 3.48 M/UL (4.20-5.40); RED CELL DISTRIBUTION WIDTH 14.2 % (11.6-14.8); WHITE BLOOD COUNT 7.2 K/UL (4.8-10.8)
[2019-03-14] MEDS: Piperacillin/Tazobactam 3.375 GM in NS 110 ML IVPB SCH ×3 (05:50→21:01)
[2019-03-14 06:18] LABS: ALANINE AMINOTRANSFERASE 68 U/L (12-78); ALBUMIN 1.6 G/DL (3.4-5.0); ALBUMIN/GLOBULIN RATIO 0.5 (1.0-2.7); ALKALINE PHOSPHATASE 310 U/L (46-116); ANION GAP 13 mmol/L (5-15); ASPARTATE AMINO TRANSFERASE 66 U/L (15-37); BILIRUBIN,TOTAL 1.4 MG/DL (0.2-1.0); BLOOD UREA NITROGEN 6 mg/dL (7-18); CALCIUM 7.8 MG/DL (8.5-10.1); CARBON DIOXIDE 22 MMOL/L (21-32); CHLORIDE 102 MMOL/L (98-107); CREATININE 0.5 MG/DL (0.55-1.30); POTASSIUM 3.9 MMOL/L (3.5-5.1); SODIUM 137 MMOL/L (136-145)
--- NOTE | 2019-03-14 07:35 | NUR ---
HAND-OFF: Report given to SARAI Segal. Patient in stable condition..
--- NOTE | 2019-03-14 07:59 | NUR ---
NURSE NOTES: Received report from Moe Holguin pt sleeping in bed with no signs of distress or other issues at this time. IV on the right HARVEY gauge#20 running IVF @75ml/hr. NGT in place in low intermittent suction. per night manager nurse total output: 50ml. Zaragoza draining to gravity, total urine output: 1250ml. call light within reach. bed in lowest position. side rales up x2. I will f/u as needed.
[2019-03-14 08:00] VITALS: BP 117/73
[2019-03-14] MEDS: Pantoprazole Inj IVP SCH ×2 (08:12→20:23)
[2019-03-14] MEDS: 1/2NS w/KCl 20mEq 1000ml 1,000 ML IV SCH ×3 (08:12→20:59)
[2019-03-14] MEDS: Heparin 5000 units/ml inj SUBQ SCH ×2 (08:14→20:24)
[2019-03-14 10:02] LABS: PHOSPHORUS 1.5 MG/DL (2.5-4.9)
[2019-03-14] MEDS ORDERED: Tubing IV Secondary IV ONE ×2 (10:36→10:59)
[2019-03-14] MEDS ORDERED: NS 275ml ONE ×2 (10:36→10:57)
--- NOTE | 2019-03-14 11:17 | Pulmonology Progress Note ---
Assessment/Plan Problems: (1) S/P exploratory laparotomy (2) Perforated abdominal viscus (3) Septic shock (4) Diabetes mellitus (5) Peritonitis Assessment/Plan improving on NG tube still iv fluids check electrolytes check cultures Subjective ROS Limited/Unobtainable: No Constitutional: Reports: no symptoms HEENT: Repors: no symptoms Allergies: Coded Allergies: No Known Allergies (Unverified , 03/10/19) Objective Last 24 Hour Vital Signs Date Time Temp Pulse Resp B/P (MAP) Pulse Ox O2 Delivery O2 Flow Rate FiO2 03/14/19 08:00 99.7 85 20 117/73 (88) 94 03/14/19 04:00 98.1 81 18 121/70 (87) 98 03/14/19 00:00 98.8 71 18 131/64 (86) 98 03/13/19 21:06 72 18 98 Nasal Cannula 2.0 28 03/13/19 21:00 Nasal Cannula 2.0 03/13/19 20:00 99.1 74 18 134/67 (89) 98 03/13/19 16:00 72 26 131/70 (90) 100 03/13/19 15:00 71 22 141/54 (83) 100 03/13/19 14:00 98.5 71 18 128/60 (82) 100 03/13/19 13:00 75 18 151/40 (77) 100 03/13/19 12:01 68 18 120/69 (86) 100 03/13/19 12:00 Nasal Cannula 2.0 03/13/19 11:45 66 Intake and Output 03/13/19 03/14/19 19:00 07:00 Intake Total 851.25 ml 825 ml Output Total 570 ml 2550 ml Balance 281.25 ml -1725 ml Intake IV Total 851.25 ml 825 ml Output Urine Total 560 ml 2500 ml Gastric Drainage Total 10 ml 50 ml # Voids 1 # Bowel Movements 1 2 General Appearance: WD/WN HEENT: normocephalic, atraumatic Respiratory/Chest: chest wall non-tender, lungs clear, normal breath sounds, no respiratory distress Breasts: no masses Cardiovascular: normal peripheral pulses, regular rhythm Abdomen: normal bowel sounds, soft, non tender Neurologic/Psychiatric: prison keeper II-XII grossly normal Laboratory Tests 03/14/19 05:00: White Blood Count 7.2, Red Blood Count 3.48L, Hemoglobin 10.1L, Hematocrit 32.1L , Mean Corpuscular Volume 92, Mean Corpuscular Hemoglobin 29.1, Mean Corpuscular Hemoglobin Concent 31.6L, Red Cell Distribution Width 14.2, Platelet Count 110L, Mean Platelet Volume 7.4, Neutrophils (%) (Auto) 82.1H, Lymphocytes (%) (Auto) 9.1L, Monocytes (%) (Auto) 6.4, Eosinophils (%) (Auto) 1.5, Basophils (%) (Auto) 0.8, Sodium Level 137, Potassium Level 3.9, Chloride Level 102, Carbon Dioxide Level 22, Anion Gap 13, Blood Urea Nitrogen 6L, Creatinine 0.5L, Estimat Glomerular Filtration Rate , Glucose Level 152H, Calcium Level 7.8L, Total Bilirubin 1.4H, Direct Bilirubin 0.0, Aspartate Amino Transf (AST/SGOT) 66H, Alanine Aminotransferase (ALT/SGPT) 68, Alkaline Phosphatase 310H, Total Protein 5.0L, Albumin 1.6L, Globulin 3.4, Albumin/ Globulin Ratio 0.5L 03/14/19 05:10: Phosphorus Level 1.5L, Magnesium Level 2.1 Current Medications Medications (Trade) Dose Ordered Sig/Shantelle Route PRN Reason Start Time Stop Time Status Last Admin Dose Admin Acetaminophen (Tylenol) 650 mg Q4H PRN RECTAL FEVER (T>100.5F) 03/13/19 18:30 04/09/19 18:29 Albuterol/ Ipratropium (Albuterol/ Ipratropium) 3 ml Q4H PRN HHN Shortness of Breath 03/13/19 17:15 03/15/19 13:14 Fluconazole/ Sodium Chloride 100 ml @ 100 mls/hr Q24H IV 03/13/19 22:00 03/17/19 21:59 03/13/19 21:00 Heparin Sodium (Porcine) (Heparin 5000 units/ml) 5,000 units EVERY 12 HOURS SUBQ 03/13/19 21:00 04/09/19 20:59 03/14/19 08:14 Morphine Sulfate (Morphine Sulfate) 2 mg Q1H PRN IVP pain scale 4-6 03/13/19 17:45 03/17/19 18:33 03/13/19 21:41 Morphine Sulfate (Morphine Sulfate) 2 mg Q4H PRN IVP Severe Pain (Pain Scale 7-10) 03/13/19 17:15 03/17/19 13:14 Ondansetron HCl (Zofran) 4 mg Q6H PRN IVP Nausea & Vomiting 03/13/19 19:15 04/09/19 13:14 Pantoprazole (Protonix) 40 mg EVERY 12 HOURS IVP 03/13/19 21:00 04/12/19 17:59 03/14/19 08:12 Piperacillin Sod/ Tazobactam Sod 3.375 gm/Sodium Chloride 110 ml @ 27.5 mls/hr EVERY 8 HOURS IVPB 03/13/19 22:00 03/18/19 05:59 03/14/19 05:50 Sodium 1,000 ml @ 75 mls/hr [id number] IV 03/13/19 17:30 04/11/19 17:29 03/14/19 08:12 Bibiana Pennington MD Mar 14, 2019 11:17
[2019-03-14 12:00] VITALS: BP 133/65
--- NOTE | 2019-03-14 13:18 | NUR ---
CASE MANAGEMENT: REVIEW 03/12/2019 SI:PERFORATED VISCUS. T 98.9 HR 88 RR 24 B/P 135/69 SATS 99% ON 3L/NC WBC 13.1 PLT 110 K 2.2 GLU 215 CA 7.3 AST 39 ABGs PH 7.471 PCO2 32.5 PO2 128.5 IS: IVF @ 100 mL/HR ZOSYN IV Q8H PROTONIX IV BID FLUCONAZOLE IV Q24H MED/SURG DCP: PATIENT TO BE DISCHARGED TO HOME ONCE MEDICALLY CLEARED. PLAN OF CARE: EXTUBATION 03/1203/13/2019 SI:PERFORATED VISCUS. T 98 HR 62 RR 15 B/P 125/39 SATS 100% ON 2L/NC GLU 195 CA 7.3 AST 38 IS: IVF @ 100 mL/HR ZOSYN IV Q8H PROTONIX IV BID FLUCONAZOLE IV Q24H MED/SURG DCP: PATIENT TO BE DISCHARGED TO HOME ONCE MEDICALLY CLEARED. PLAN OF CARE: KUB IMPRESSION: Moderate stool in colon. No bowel obstruction. 03/14/2019 SI:PERFORATED VISCUS. T 99.7 HR 85 RR 20 B/P 117/73 SATS 94 ON 2L/NC GLU 195 CA 7.3 AST 38 IS: IVF @ 75 mL/HR ZOSYN IV Q8H PROTONIX IV BID FLUCONAZOLE IV Q24H MED/SURG DCP: PATIENT TO BE DISCHARGED TO HOME ONCE MEDICALLY CLEARED.
--- NOTE | 2019-03-14 13:52 | Nephrology Progress Note ---
Assessment/Plan Problem List: (1) Perforated abdominal viscus (2) Hypokalemia (3) Hypomagnesemia (4) Diabetes mellitus (5) Anemia Assessment Post lap on 03/10 Low K Low Phos Low Mag Anemia DM h/o HTN Plan Mag and K and Phos IV as needed Anemia claudio Keep BP and BS in check per orders Subjective ROS Limited/Unobtainable: No Objective Objective Last 24 Hour Vital Signs Date Time Temp Pulse Resp B/P (MAP) Pulse Ox O2 Delivery O2 Flow Rate FiO2 03/14/19 12:00 97.7 82 18 133/65 (87) 96 03/14/19 09:00 Nasal Cannula 2.0 03/14/19 08:00 99.7 85 20 117/73 (88) 94 03/14/19 04:00 98.1 81 18 121/70 (87) 98 03/14/19 00:00 98.8 71 18 131/64 (86) 98 03/13/19 21:06 72 18 98 Nasal Cannula 2.0 28 03/13/19 21:00 Nasal Cannula 2.0 03/13/19 20:00 99.1 74 18 134/67 (89) 98 03/13/19 16:00 72 26 131/70 (90) 100 03/13/19 15:00 71 22 141/54 (83) 100 03/13/19 14:00 98.5 71 18 128/60 (82) 100 Intake and Output 03/13/19 03/14/19 19:00 07:00 Intake Total 851.25 ml 825 ml Output Total 570 ml 2550 ml Balance 281.25 ml -1725 ml Intake IV Total 851.25 ml 825 ml Output Urine Total 560 ml 2500 ml Gastric Drainage Total 10 ml 50 ml # Voids 1 # Bowel Movements 1 2 Laboratory Tests 03/14/19 05:00: White Blood Count 7.2, Red Blood Count 3.48L, Hemoglobin 10.1L, Hematocrit 32.1L , Mean Corpuscular Volume 92, Mean Corpuscular Hemoglobin 29.1, Mean Corpuscular Hemoglobin Concent 31.6L, Red Cell Distribution Width 14.2, Platelet Count 110L, Mean Platelet Volume 7.4, Neutrophils (%) (Auto) 82.1H, Lymphocytes (%) (Auto) 9.1L, Monocytes (%) (Auto) 6.4, Eosinophils (%) (Auto) 1.5, Basophils (%) (Auto) 0.8, Sodium Level 137, Potassium Level 3.9, Chloride Level 102, Carbon Dioxide Level 22, Anion Gap 13, Blood Urea Nitrogen 6L, Creatinine 0.5L, Estimat Glomerular Filtration Rate , Glucose Level 152H, Calcium Level 7.8L, Total Bilirubin 1.4H, Direct Bilirubin 0.0, Aspartate Amino Transf (AST/SGOT) 66H, Alanine Aminotransferase (ALT/SGPT) 68, Alkaline Phosphatase 310H, Total Protein 5.0L, Albumin 1.6L, Globulin 3.4, Albumin/ Globulin Ratio 0.5L 03/14/19 05:10: Phosphorus Level 1.5L, Magnesium Level 2.1 Height (Feet): 5 Height (Inches): 0.00 Weight (Pounds): 122 General Appearance: no apparent distress Objective no change El Clark MD Mar 14, 2019 13:52
[2019-03-14] MEDS ORDERED: Potassium Phosphate 30 MM in NS 275 ML IV ONE (15:00)
--- NOTE | 2019-03-14 15:25 | Surgery Progress Note ---
Surgery Progress Note Subjective Procedure Performed ex lap with imelda patch, washout, omentectomy Additional Comments slowly improving pain improved abd exam stable labs okay Objective Last 24 Hour Vital Signs Date Time Temp Pulse Resp B/P (MAP) Pulse Ox O2 Delivery O2 Flow Rate FiO2 03/14/19 12:00 97.7 82 18 133/65 (87) 96 03/14/19 09:00 Nasal Cannula 2.0 03/14/19 08:00 99.7 85 20 117/73 (88) 94 03/14/19 04:00 98.1 81 18 121/70 (87) 98 03/14/19 00:00 98.8 71 18 131/64 (86) 98 03/13/19 21:06 72 18 98 Nasal Cannula 2.0 28 03/13/19 21:00 Nasal Cannula 2.0 03/13/19 20:00 99.1 74 18 134/67 (89) 98 03/13/19 16:00 72 26 131/70 (90) 100 I&O Intake and Output 03/13/19 03/14/19 19:00 07:00 Intake Total 851.25 ml 825 ml Output Total 570 ml 2550 ml Balance 281.25 ml -1725 ml Intake IV Total 851.25 ml 825 ml Output Urine Total 560 ml 2500 ml Gastric Drainage Total 10 ml 50 ml # Voids 1 # Bowel Movements 1 2 Wound: clean, dry Drains: none Cardiovascular: RSR Respiratory: clear Abdomen: soft, distended, non-tender, present bowel sounds, decreased bowel sounds Extremities: no cyanosis Laboratory Tests Test 03/14/19 05:00 03/14/19 05:10 White Blood Count 7.2 K/UL (4.8-10.8) Red Blood Count 3.48 M/UL (4.20-5.40) L Hemoglobin 10.1 G/DL (12.0-16.0) L Hematocrit 32.1 % (37.0-47.0) L Mean Corpuscular Volume 92 FL (80-99) Mean Corpuscular Hemoglobin 29.1 PG (27.0-31.0) Mean Corpuscular Hemoglobin Concent 31.6 G/DL (32.0-36.0) L Red Cell Distribution Width 14.2 % (11.6-14.8) Platelet Count 110 K/UL (150-450) L Mean Platelet Volume 7.4 FL (6.5-10.1) Neutrophils (%) (Auto) 82.1 % (45.0-75.0) H Lymphocytes (%) (Auto) 9.1 % (20.0-45.0) L Monocytes (%) (Auto) 6.4 % (1.0-10.0) Eosinophils (%) (Auto) 1.5 % (0.0-3.0) Basophils (%) (Auto) 0.8 % (0.0-2.0) Sodium Level 137 MMOL/L (136-145) Potassium Level 3.9 MMOL/L (3.5-5.1) Chloride Level 102 MMOL/L (98-107) Carbon Dioxide Level 22 MMOL/L (21-32) Anion Gap 13 mmol/L (5-15) Blood Urea Nitrogen 6 mg/dL (7-18) L Creatinine 0.5 MG/DL (0.55-1.30) L Estimat Glomerular Filtration Rate mL/min (>60) Glucose Level 152 MG/DL (74-106) H Calcium Level 7.8 MG/DL (8.5-10.1) L Total Bilirubin 1.4 MG/DL (0.2-1.0) H Direct Bilirubin 0.0 MG/DL (0.0-0.3) Aspartate Amino Transf (AST/SGOT) 66 U/L (15-37) H Alanine Aminotransferase (ALT/SGPT) 68 U/L (12-78) Alkaline Phosphatase 310 U/L (46-116) H Total Protein 5.0 G/DL (6.4-8.2) L Albumin 1.6 G/DL (3.4-5.0) L Globulin 3.4 g/dL Albumin/Globulin Ratio 0.5 (1.0-2.7) L Phosphorus Level 1.5 MG/DL (2.5-4.9) L Magnesium Level 2.1 MG/DL (1.8-2.4) Assessment Post-op Diagnosis perforated prepyloric gastric ulcer Plan Problems: (1) Peritonitis Assessment & Plan: 84F with perforated abdominal viscus likely gastric perforation based on CT findings s/p imelda patch recovering labs improved exam improved NG tube stays for a few more days. low intermittent suction. okay to gravity when ambulatory okay to ambulate d/c aiden JOSEO thank you (2) Perforated abdominal viscus Mike Sheth Mar 14, 2019 15:25
[2019-03-14 16:00] VITALS: BP 130/70
--- NOTE | 2019-03-14 18:06 | Infectious Diseases Prog Note ---
Assessment/Plan Assessment/Plan Assessment: Perforated pre-pyloric gastric ulcer -03/10 SP 03/10 SP Exploratory Laparotomy, Abdominal washout. Partial omentectomy. Shane patch for repair of perforated pre-pyloric ulcer. -03/10 CT abd/p: Free intraperitoneal gas. Etiology not completely certain, but gas within and extending from the anterior gastric antral wall is suspicious for a perforated gastric ulcer. Perforated descending colon diverticulitis also possible but deemed much less likely. Free intraperitoneal fluid, presumably related to the above. Fatty liver. Basilar pulmonary parenchymal groundglass opacities. This could indicate pulmonary edema, among other possibilities. Subcentimeter low-attenuation renal lesions, too small to characterize, most likely benign simple cyst. No further follow-up necessary. 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 Afebrile Mild leukocytosis, SP -u/a neg -CXR: Bilateral basilar atelectatic changes VDRF, post-op; extubated 03/12 DARRON Dm2 HTN Plan: -COntinue Zosyn #5/5 periop -Noted patient is on Fluconazole #2 -03/10 SP IV Vancomycin #1, Ancef x1 -f/u cx -Monitor CBC/CMP, temperatures -ICU/ETT care -Sx f/u -wound care per surgical team -aspiration precautions Thank you for this consultation. Will continue to follow along with you. Discussed with RN Subjective Allergies: Coded Allergies: No Known Allergies (Unverified , 03/10/19) Subjective afebrile transferred out of ICU no leukocytosis Objective Vital Signs Last 24 Hour Vital Signs Date Time Temp Pulse Resp B/P (MAP) Pulse Ox O2 Delivery O2 Flow Rate FiO2 03/14/19 17:39 98 Nasal Cannula 2.0 28 03/14/19 17:37 85 20 94 Nasal Cannula 2.0 28 03/14/19 16:00 97.2 85 20 130/70 (90) 94 03/14/19 12:00 97.7 82 18 133/65 (87) 96 03/14/19 09:00 Nasal Cannula 2.0 03/14/19 08:00 99.7 85 20 117/73 (88) 94 03/14/19 04:00 98.1 81 18 121/70 (87) 98 03/14/19 00:00 98.8 71 18 131/64 (86) 98 03/13/19 21:06 72 18 98 Nasal Cannula 2.0 28 03/13/19 21:00 Nasal Cannula 2.0 03/13/19 20:00 99.1 74 18 134/67 (89) 98 Height (Feet): 5 Height (Inches): 0.00 Weight (Pounds): 122 Objective General appearance: alert, cooperative, no distress, appears stated age Head: Normocephalic, without obvious abnormality, atraumatic Eyes: conjunctivae/corneas clear. PERRL, EOM's intact. Fundi benign Throat: Lips, mucosa, and tongue normal. Teeth and gums normal Neck: supple, symmetrical, trachea midline, no adenopathy, thyroid: not enlarged, symmetric, no tenderness/mass/nodules, no carotid bruit and no JVD Lungs: clear to auscultation bilaterally Heart: regular rate and rhythm, S1, S2 normal, no murmur, click, rub or gallop Abdomen: soft, peritonitis with tender. Bowel sounds normal. No masses, no organomegaly Extremities: extremities normal, atraumatic, no cyanosis or edema Pulses: 2+ and symmetric Skin: Skin color, texture, turgor normal. No rashes or lesions Neurologic: Grossly normal Laboratory Tests Test 03/14/19 05:00 03/14/19 05:10 White Blood Count 7.2 K/UL (4.8-10.8) Red Blood Count 3.48 M/UL (4.20-5.40) L Hemoglobin 10.1 G/DL (12.0-16.0) L Hematocrit 32.1 % (37.0-47.0) L Mean Corpuscular Volume 92 FL (80-99) Mean Corpuscular Hemoglobin 29.1 PG (27.0-31.0) Mean Corpuscular Hemoglobin Concent 31.6 G/DL (32.0-36.0) L Red Cell Distribution Width 14.2 % (11.6-14.8) Platelet Count 110 K/UL (150-450) L Mean Platelet Volume 7.4 FL (6.5-10.1) Neutrophils (%) (Auto) 82.1 % (45.0-75.0) H Lymphocytes (%) (Auto) 9.1 % (20.0-45.0) L Monocytes (%) (Auto) 6.4 % (1.0-10.0) Eosinophils (%) (Auto) 1.5 % (0.0-3.0) Basophils (%) (Auto) 0.8 % (0.0-2.0) Sodium Level 137 MMOL/L (136-145) Potassium Level 3.9 MMOL/L (3.5-5.1) Chloride Level 102 MMOL/L (98-107) Carbon Dioxide Level 22 MMOL/L (21-32) Anion Gap 13 mmol/L (5-15) Blood Urea Nitrogen 6 mg/dL (7-18) L Creatinine 0.5 MG/DL (0.55-1.30) L Estimat Glomerular Filtration Rate mL/min (>60) Glucose Level 152 MG/DL (74-106) H Calcium Level 7.8 MG/DL (8.5-10.1) L Total Bilirubin 1.4 MG/DL (0.2-1.0) H Direct Bilirubin 0.0 MG/DL (0.0-0.3) Aspartate Amino Transf (AST/SGOT) 66 U/L (15-37) H Alanine Aminotransferase (ALT/SGPT) 68 U/L (12-78) Alkaline Phosphatase 310 U/L (46-116) H Total Protein 5.0 G/DL (6.4-8.2) L Albumin 1.6 G/DL (3.4-5.0) L Globulin 3.4 g/dL Albumin/Globulin Ratio 0.5 (1.0-2.7) L Phosphorus Level 1.5 MG/DL (2.5-4.9) L Magnesium Level 2.1 MG/DL (1.8-2.4) Current Medications Medications (Trade) Dose Ordered Sig/Shantelle Route PRN Reason Start Time Stop Time Status Last Admin Dose Admin Acetaminophen (Tylenol) 650 mg Q4H PRN RECTAL FEVER (T>100.5F) 03/13/19 18:30 04/09/19 18:29 Albuterol/ Ipratropium (Albuterol/ Ipratropium) 3 ml Q4H PRN HHN Shortness of Breath 03/13/19 17:15 03/15/19 13:14 Fluconazole/ Sodium Chloride 100 ml @ 100 mls/hr Q24H IV 03/13/19 22:00 03/17/19 21:59 03/13/19 21:00 Heparin Sodium (Porcine) (Heparin 5000 units/ml) 5,000 units EVERY 12 HOURS SUBQ 03/13/19 21:00 04/09/19 20:59 03/14/19 08:14 Morphine Sulfate (Morphine Sulfate) 2 mg Q1H PRN IVP pain scale 4-6 03/13/19 17:45 03/17/19 18:33 03/13/19 21:41 Morphine Sulfate (Morphine Sulfate) 2 mg Q4H PRN IVP Severe Pain (Pain Scale 7-10) 03/13/19 17:15 03/17/19 13:14 Ondansetron HCl (Zofran) 4 mg Q6H PRN IVP Nausea & Vomiting 03/13/19 19:15 04/09/19 13:14 Pantoprazole (Protonix) 40 mg EVERY 12 HOURS IVP 03/13/19 21:00 04/12/19 17:59 03/14/19 08:12 Piperacillin Sod/ Tazobactam Sod 3.375 gm/Sodium Chloride 110 ml @ 27.5 mls/hr EVERY 8 HOURS IVPB 03/13/19 22:00 03/18/19 05:59 03/14/19 14:42 Potassium Phosphate 30 mm/ Sodium Chloride 285 ml @ 47.5 mls/hr ONCE ONCE IV 03/14/19 15:00 03/14/19 20:59 03/14/19 14:43 Sodium 1,000 ml @ 30 mls/hr Q24H IV 03/14/19 17:30 04/11/19 17:29 Janette Stallworth M.D. Mar 14, 2019 18:06
--- NOTE | 2019-03-14 18:29 | Internal Med Progress Note ---
Subjective Date of Service: Mar 14, 2019 Physician Name Paige,Zen Attending Physician Marcos Silva MD Current Medications Medications (Trade) Dose Ordered Sig/Shantelle Route PRN Reason Start Time Stop Time Status Last Admin Dose Admin Acetaminophen (Tylenol) 650 mg Q4H PRN RECTAL FEVER (T>100.5F) 03/13/19 18:30 04/09/19 18:29 Albuterol/ Ipratropium (Albuterol/ Ipratropium) 3 ml Q4H PRN HHN Shortness of Breath 03/13/19 17:15 03/15/19 13:14 Fluconazole/ Sodium Chloride 100 ml @ 100 mls/hr Q24H IV 03/13/19 22:00 03/17/19 21:59 03/13/19 21:00 Heparin Sodium (Porcine) (Heparin 5000 units/ml) 5,000 units EVERY 12 HOURS SUBQ 03/13/19 21:00 04/09/19 20:59 03/14/19 08:14 Morphine Sulfate (Morphine Sulfate) 2 mg Q1H PRN IVP pain scale 4-6 03/13/19 17:45 03/17/19 18:33 03/13/19 21:41 Morphine Sulfate (Morphine Sulfate) 2 mg Q4H PRN IVP Severe Pain (Pain Scale 7-10) 03/13/19 17:15 03/17/19 13:14 Ondansetron HCl (Zofran) 4 mg Q6H PRN IVP Nausea & Vomiting 03/13/19 19:15 04/09/19 13:14 Pantoprazole (Protonix) 40 mg EVERY 12 HOURS IVP 03/13/19 21:00 04/12/19 17:59 03/14/19 08:12 Piperacillin Sod/ Tazobactam Sod 3.375 gm/Sodium Chloride 110 ml @ 27.5 mls/hr EVERY 8 HOURS IVPB 03/13/19 22:00 03/18/19 05:59 03/14/19 14:42 Potassium Phosphate 30 mm/ Sodium Chloride 285 ml @ 47.5 mls/hr ONCE ONCE IV 03/14/19 15:00 03/14/19 20:59 03/14/19 14:43 Sodium 1,000 ml @ 30 mls/hr Q24H IV 03/14/19 17:30 04/11/19 17:29 Allergies: Coded Allergies: No Known Allergies (Unverified , 03/10/19) ROS Limited/Unobtainable: No Constitutional: Reports: no symptoms HEENT: Reports: no symptoms Cardiovascular: Reports: no symptoms Respiratory: Reports: no symptoms Gastrointestinal/Abdominal: Reports: abdominal pain Genitourinary: Reports: no symptoms Neurologic/Psychiatric: Reports: no symptoms Subjective 84 YO F admitted with abdominal pain. S/P exploratory laparotomy 03/10/19. Cover for Int Med-Dr Silva. Med/surg. Extubated 03/12/19 Objective Last Vital Signs Date Time Temp Pulse Resp B/P (MAP) Pulse Ox O2 Delivery O2 Flow Rate FiO2 03/14/19 17:39 98 Nasal Cannula 2.0 28 03/14/19 17:37 85 20 03/14/19 16:00 97.2 130/70 (90) Laboratory Tests Test 03/14/19 05:00 03/14/19 05:10 White Blood Count 7.2 K/UL (4.8-10.8) Red Blood Count 3.48 M/UL (4.20-5.40) L Hemoglobin 10.1 G/DL (12.0-16.0) L Hematocrit 32.1 % (37.0-47.0) L Mean Corpuscular Volume 92 FL (80-99) Mean Corpuscular Hemoglobin 29.1 PG (27.0-31.0) Mean Corpuscular Hemoglobin Concent 31.6 G/DL (32.0-36.0) L Red Cell Distribution Width 14.2 % (11.6-14.8) Platelet Count 110 K/UL (150-450) L Mean Platelet Volume 7.4 FL (6.5-10.1) Neutrophils (%) (Auto) 82.1 % (45.0-75.0) H Lymphocytes (%) (Auto) 9.1 % (20.0-45.0) L Monocytes (%) (Auto) 6.4 % (1.0-10.0) Eosinophils (%) (Auto) 1.5 % (0.0-3.0) Basophils (%) (Auto) 0.8 % (0.0-2.0) Sodium Level 137 MMOL/L (136-145) Potassium Level 3.9 MMOL/L (3.5-5.1) Chloride Level 102 MMOL/L (98-107) Carbon Dioxide Level 22 MMOL/L (21-32) Anion Gap 13 mmol/L (5-15) Blood Urea Nitrogen 6 mg/dL (7-18) L Creatinine 0.5 MG/DL (0.55-1.30) L Estimat Glomerular Filtration Rate mL/min (>60) Glucose Level 152 MG/DL (74-106) H Calcium Level 7.8 MG/DL (8.5-10.1) L Total Bilirubin 1.4 MG/DL (0.2-1.0) H Direct Bilirubin 0.0 MG/DL (0.0-0.3) Aspartate Amino Transf (AST/SGOT) 66 U/L (15-37) H Alanine Aminotransferase (ALT/SGPT) 68 U/L (12-78) Alkaline Phosphatase 310 U/L (46-116) H Total Protein 5.0 G/DL (6.4-8.2) L Albumin 1.6 G/DL (3.4-5.0) L Globulin 3.4 g/dL Albumin/Globulin Ratio 0.5 (1.0-2.7) L Phosphorus Level 1.5 MG/DL (2.5-4.9) L Magnesium Level 2.1 MG/DL (1.8-2.4) Intake and Output 03/13/19 03/14/19 18:59 06:59 Intake Total 776.25 ml 900 ml Output Total 670 ml 2550 ml Balance 106.25 ml -1650 ml Intake IV Total 776.25 ml 900 ml Output Urine Total 660 ml 2500 ml Gastric Drainage Total 10 ml 50 ml # Voids 1 # Bowel Movements 1 2 Objective PHYSICAL EXAMINATION: GENERAL: The patient is a well developed, well nourished female who is intubated and sedated. HEENT: Eyes, pupils equal and responsive to light and accommodation. Extraocular movements are intact. NECK: Supple without lymphadenopathy. CHEST: Nasc canula; Few diffuse wheezes bilaterally. Otherwise, without wheezes or rales. CARDIOVASCULAR: Regular rhythm rate. S1-S2 are normal without murmurs, rubs, or gallops. ABDOMEN: NGT; Soft, nontender with decreased bowel sounds. No evidence of hepatosplenomegaly. no rebound or guarding noted. EXTREMITIES: Negative for clubbing, cyanosis, edema. RECTAL/GENITAL: Not performed. NEUROLOGIC: Cranial nerves II through XII are grossly intact without focal deficits. Assessment/Plan Assessment/Plan ASSESSMENT: This is an 84-year-old female. 1. Perforated gastric ulcer 2. Abdominal pain. 3. Nausea with vomiting. 4. Diabetes type 2. 5. Hypertension. TREATMENT: 1. Perforated gastric ulcer. A General Surgery consultation has been obtained with Dr. Sheth. S/P exploratory laparotomy 03/10/19=perforated gastric ulcer. NPO; NGT in place 2. Diabetes type 2. NovoLog sliding scale has been instituted. 3. Hypertension. The patient is currently hypotensive. 4. Respiratory failure. S/P extubation 03/12/19. A Pulmonary consultation has been obtained with Dr. Bibiana Pennington. 5. ICU status 6. replace potassium, phos and mag 7. Med/surg Zen Paige MD Mar 14, 2019 18:29
[2019-03-14 20:00] VITALS: BP 142/71
--- NOTE | 2019-03-14 20:04 | NUR ---
NURSE NOTES: Received report from SARAI Segal. Patient has NG tube connected to low intermittent suction draining clear green liquid. No c/o of pain or SOB. IV fluids running 1/2 NS + 20KCl at 75ml/hr. Will continue to monitor.
[2019-03-14] MEDS: Morphine Sulfate 2mg/ml Inj(IV/IM USE ONLY) IVP PRN (20:23)
[2019-03-15] VITALS: BP 136/69
[2019-03-15] MEDS: Morphine Sulfate 2mg/ml Inj(IV/IM USE ONLY) IVP PRN (03:24)
[2019-03-15 04:00] VITALS: BP 129/66
[2019-03-15] MEDS: Piperacillin/Tazobactam 3.375 GM in NS 110 ML IVPB SCH (05:44)
--- NOTE | 2019-03-15 07:19 | NUR ---
HAND-OFF: Report given to SARAI Dennis. Patient in stable condition.
--- NOTE | 2019-03-15 07:30 | NUR ---
NURSE NOTES: Patient lying in bed awake. No complain of pain or distress at this time. Skin intact and dry. Surgical site dry and no bleeding. IV dressing intact and dry. NG tube on wall suction and on going as ordered. Bed lowest position. Call light within reach. Will continue to monitor.
[2019-03-15 07:32] LABS: HEMATOCRIT 33.4 % (37.0-47.0); HEMOGLOBIN 10.7 G/DL (12.0-16.0); MEAN CORPUSCULAR VOLUME 92 FL (80-99); PLATELET COUNT 140 K/UL (150-450); RED BLOOD COUNT 3.64 M/UL (4.20-5.40); WHITE BLOOD COUNT 9.2 K/UL (4.8-10.8)
[2019-03-15 07:38] VITALS: BP 151/70
[2019-03-15 08:06] LABS: ANION GAP 18 mmol/L (5-15); BLOOD UREA NITROGEN 5 mg/dL (7-18); CARBON DIOXIDE 18 MMOL/L (21-32); CHLORIDE 101 MMOL/L (98-107); CREATININE 0.6 MG/DL (0.55-1.30); POTASSIUM 4.9 MMOL/L (3.5-5.1); SODIUM 137 MMOL/L (136-145)
[2019-03-15] MEDS: Pantoprazole Inj IVP SCH ×2 (08:25→20:42)
[2019-03-15] MEDS: Heparin 5000 units/ml inj SUBQ SCH ×2 (08:29→20:44)
[2019-03-15 09:56] LABS: ALANINE AMINOTRANSFERASE 53 U/L (12-78); ALBUMIN 1.7 G/DL (3.4-5.0); ALKALINE PHOSPHATASE 314 U/L (46-116); ASPARTATE AMINO TRANSFERASE 33 U/L (15-37); BILIRUBIN,DIRECT 0.5 MG/DL (0.0-0.3); BILIRUBIN,TOTAL 1.3 MG/DL (0.2-1.0); PHOSPHORUS 2.3 MG/DL (2.5-4.9)
--- NOTE | 2019-03-15 11:03 | NUR ---
RD ASSESSMENT & RECOMMENDATIONS SEE CARE ACTIVITY FOR COMPLETE ASSESSMENT DAILY ESTIMATED NEEDS: Needs based on Surgery, DM / 53.6kg 25-35 kcals/kg 3907-5294 total kcals 1-2 g protein/kg 54-107 g total protein 25-30 mL/kg 1850-1209 total fluid mLs NUTRITION DIAGNOSIS: * Altered GI function R/T perforated gastric ulcer as evidenced by s/p ex lap, abdominal washout, partial omentectomy, imelda patch for repair of perforated pre-pyloric ulcer, NPO W/ NGT to LIS. (UPDATED) * Altered nutrition related lab values R/T diabetes, clinical condition as evidenced by elev BGs (255 353), A1C 10.2, urine glucose 4+, low phos and mg, elev triglycerides (300). CURRENT DIET:NPO PO DIET RECOMMENDATIONS: Clears as medically appropriate-> add Ensure Clear w/ meals ADDITIONAL RECOMMENDATIONS: * Monitor respiratory status- remains intubated post op at this time * Monitor NPO status; need for TPN * Monitor lytes, replete as needed * Calibrated bedscale wt for accurate CBW
[2019-03-15 12:00] VITALS: BP 133/70
--- NOTE | 2019-03-15 12:07 | Infectious Diseases Prog Note ---
Assessment/Plan Assessment/Plan Assessment: Perforated pre-pyloric gastric ulcer -03/10 SP 03/10 SP Exploratory Laparotomy, Abdominal washout. Partial omentectomy. Shane patch for repair of perforated pre-pyloric ulcer. -03/10 CT abd/p: Free intraperitoneal gas. Etiology not completely certain, but gas within and extending from the anterior gastric antral wall is suspicious for a perforated gastric ulcer. Perforated descending colon diverticulitis also possible but deemed much less likely. Free intraperitoneal fluid, presumably related to the above. Fatty liver. Basilar pulmonary parenchymal groundglass opacities. This could indicate pulmonary edema, among other possibilities. Subcentimeter low-attenuation renal lesions, too small to characterize, most likely benign simple cyst. No further follow-up necessary. 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 Afebrile Mild leukocytosis, SP -u/a neg -CXR: Bilateral basilar atelectatic changes VDRF, post-op; extubated 03/12 DARRON, SP Dm2 HTN Plan: -Dc Zosyn #6/5 periop -Noted patient is on Fluconazole #3 (?indication) -03/10 SP IV Vancomycin #1, Ancef x1 -f/u cx -Monitor CBC/CMP, temperatures -Sx f/u -wound care per surgical team -aspiration precautions Thank you for this consultation. Will continue to follow along with you. Discussed with RN Subjective Allergies: Coded Allergies: No Known Allergies (Unverified , 03/10/19) Subjective afebrile no leukocytosis Objective Vital Signs Last 24 Hour Vital Signs Date Time Temp Pulse Resp B/P (MAP) Pulse Ox O2 Delivery O2 Flow Rate FiO2 03/15/19 09:00 Nasal Cannula 2.0 03/15/19 07:38 99.2 107 17 151/70 (97) 94 03/15/19 04:00 99.3 110 17 129/66 (87) 94 03/15/19 00:00 98.4 102 18 136/69 (91) 96 03/14/19 21:00 Nasal Cannula 2.0 03/14/19 20:00 98.0 111 19 142/71 (94) 96 03/14/19 17:39 98 Nasal Cannula 2.0 28 03/14/19 17:37 85 20 94 Nasal Cannula 2.0 28 03/14/19 16:00 97.2 85 20 130/70 (90) 94 Height (Feet): 5 Height (Inches): 0.00 Weight (Pounds): 122 Objective General appearance: alert, cooperative, no distress, appears stated age Head: Normocephalic, without obvious abnormality, atraumatic Eyes: conjunctivae/corneas clear. PERRL, EOM's intact. Fundi benign Throat: Lips, mucosa, and tongue normal. Teeth and gums normal Neck: supple, symmetrical, trachea midline, no adenopathy, thyroid: not enlarged, symmetric, no tenderness/mass/nodules, no carotid bruit and no JVD Lungs: clear to auscultation bilaterally Heart: regular rate and rhythm, S1, S2 normal, no murmur, click, rub or gallop Abdomen: soft, peritonitis with tender. Bowel sounds normal. No masses, no organomegaly Extremities: extremities normal, atraumatic, no cyanosis or edema Pulses: 2+ and symmetric Skin: Skin color, texture, turgor normal. No rashes or lesions Neurologic: Grossly normal Laboratory Tests Test 03/15/19 06:30 White Blood Count 9.2 K/UL (4.8-10.8) Red Blood Count 3.64 M/UL (4.20-5.40) L Hemoglobin 10.7 G/DL (12.0-16.0) L Hematocrit 33.4 % (37.0-47.0) L Mean Corpuscular Volume 92 FL (80-99) Mean Corpuscular Hemoglobin 29.5 PG (27.0-31.0) Mean Corpuscular Hemoglobin Concent 32.2 G/DL (32.0-36.0) Red Cell Distribution Width 14.0 % (11.6-14.8) Platelet Count 140 K/UL (150-450) L Mean Platelet Volume 8.5 FL (6.5-10.1) Neutrophils (%) (Auto) % (45.0-75.0) Lymphocytes (%) (Auto) % (20.0-45.0) Monocytes (%) (Auto) % (1.0-10.0) Eosinophils (%) (Auto) % (0.0-3.0) Basophils (%) (Auto) % (0.0-2.0) Differential Total Cells Counted 100 Neutrophils % (Manual) 90 % (45-75) H Lymphocytes % (Manual) 8 % (20-45) L Monocytes % (Manual) 2 % (1-10) Eosinophils % (Manual) 0 % (0-3) Basophils % (Manual) 0 % (0-2) Band Neutrophils 0 % (0-8) Platelet Estimate Decreased L Platelet Morphology Normal Sodium Level 137 MMOL/L (136-145) Potassium Level 4.9 MMOL/L (3.5-5.1) Chloride Level 101 MMOL/L (98-107) Carbon Dioxide Level 18 MMOL/L (21-32) L Anion Gap 18 mmol/L (5-15) H Blood Urea Nitrogen 5 mg/dL (7-18) L Creatinine 0.6 MG/DL (0.55-1.30) Estimat Glomerular Filtration Rate mL/min (>60) Glucose Level 223 MG/DL (74-106) H Calcium Level 8.0 MG/DL (8.5-10.1) L Phosphorus Level 2.3 MG/DL (2.5-4.9) L Magnesium Level 1.4 MG/DL (1.8-2.4) L Total Bilirubin 1.3 MG/DL (0.2-1.0) H Direct Bilirubin 0.5 MG/DL (0.0-0.3) H Aspartate Amino Transf (AST/SGOT) 33 U/L (15-37) Alanine Aminotransferase (ALT/SGPT) 53 U/L (12-78) Alkaline Phosphatase 314 U/L (46-116) H Total Protein 5.4 G/DL (6.4-8.2) L Albumin 1.7 G/DL (3.4-5.0) L Current Medications Medications (Trade) Dose Ordered Sig/Shantelle Route PRN Reason Start Time Stop Time Status Last Admin Dose Admin Acetaminophen (Tylenol) 650 mg Q4H PRN RECTAL FEVER (T>100.5F) 03/13/19 18:30 04/09/19 18:29 Albuterol/ Ipratropium (Albuterol/ Ipratropium) 3 ml Q4H PRN HHN Shortness of Breath 03/13/19 17:15 03/15/19 13:14 Fluconazole/ Sodium Chloride 100 ml @ 100 mls/hr Q24H IV 03/13/19 22:00 03/17/19 21:59 03/14/19 21:00 Heparin Sodium (Porcine) (Heparin 5000 units/ml) 5,000 units EVERY 12 HOURS SUBQ 03/13/19 21:00 04/09/19 20:59 03/15/19 08:29 Morphine Sulfate (Morphine Sulfate) 2 mg Q1H PRN IVP pain scale 4-6 03/13/19 17:45 03/17/19 18:33 03/15/19 03:24 Morphine Sulfate (Morphine Sulfate) 2 mg Q4H PRN IVP Severe Pain (Pain Scale 7-10) 03/13/19 17:15 03/17/19 13:14 03/14/19 20:23 Ondansetron HCl (Zofran) 4 mg Q6H PRN IVP Nausea & Vomiting 03/13/19 19:15 04/09/19 13:14 Pantoprazole (Protonix) 40 mg EVERY 12 HOURS IVP 03/13/19 21:00 04/12/19 17:59 03/15/19 08:25 Piperacillin Sod/ Tazobactam Sod 3.375 gm/Sodium Chloride 110 ml @ 27.5 mls/hr EVERY 8 HOURS IVPB 03/13/19 22:00 03/18/19 05:59 03/15/19 05:44 Sodium 1,000 ml @ 30 mls/hr Q24H IV 03/14/19 17:30 04/11/19 17:29 03/14/19 20:59 Janette Stallworth M.D. Mar 15, 2019 12:07
--- NOTE | 2019-03-15 12:36 | NUR ---
CASE MANAGEMENT: REVIEW 03/15/2019 SI:PERFORATED VISCUS. T 99.2 HR 107 RR 17 B/P 151/70 SATS 94% ON 2L/NC CO2 18 BUN 5 GLU 223 CA 8 ALP 314 IS: IVF @ 30 mL/HR ZOSYN IV Q8H PROTONIX IV BID FLUCONAZOLE IV Q24H MED/SURG DCP: PATIENT TO BE DISCHARGED TO HOME ONCE MEDICALLY CLEARED.
--- NOTE | 2019-03-15 12:56 | Nephrology Progress Note ---
Assessment/Plan Problem List: (1) Perforated abdominal viscus (2) Hypokalemia (3) Hypomagnesemia (4) Diabetes mellitus (5) Anemia Assessment Post lap on 03/10 Low K Low Phos Low Mag Anemia DM h/o HTN Plan change IV fluid Mag and K and Phos IV as needed Anemia claudio Keep BP and BS in check per orders Subjective ROS Limited/Unobtainable: No Objective Objective Last 24 Hour Vital Signs Date Time Temp Pulse Resp B/P (MAP) Pulse Ox O2 Delivery O2 Flow Rate FiO2 03/15/19 09:00 Nasal Cannula 2.0 03/15/19 07:38 99.2 107 17 151/70 (97) 94 03/15/19 04:00 99.3 110 17 129/66 (87) 94 03/15/19 00:00 98.4 102 18 136/69 (91) 96 03/14/19 21:00 Nasal Cannula 2.0 03/14/19 20:00 98.0 111 19 142/71 (94) 96 03/14/19 17:39 98 Nasal Cannula 2.0 28 03/14/19 17:37 85 20 94 Nasal Cannula 2.0 28 03/14/19 16:00 97.2 85 20 130/70 (90) 94 Intake and Output 03/14/19 03/15/19 19:00 07:00 Intake Total 150 ml Output Total 2100 ml 50 ml Balance -2100 ml 100 ml Intake Oral 0 ml IV Total 150 ml Output Urine Total 2100 ml Gastric Drainage Total 50 ml # Voids 1 # Bowel Movements 1 Laboratory Tests 03/15/19 06:30: White Blood Count 9.2, Red Blood Count 3.64L, Hemoglobin 10.7L, Hematocrit 33.4L , Mean Corpuscular Volume 92, Mean Corpuscular Hemoglobin 29.5, Mean Corpuscular Hemoglobin Concent 32.2, Red Cell Distribution Width 14.0, Platelet Count 140L, Mean Platelet Volume 8.5, Neutrophils (%) (Auto) , Lymphocytes (%) ( Auto) , Monocytes (%) (Auto) , Eosinophils (%) (Auto) , Basophils (%) (Auto) , Differential Total Cells Counted 100, Neutrophils % (Manual) 90H, Lymphocytes % (Manual) 8L, Monocytes % (Manual) 2, Eosinophils % (Manual) 0, Basophils % ( Manual) 0, Band Neutrophils 0, Platelet Estimate DecreasedL, Platelet Morphology Normal, Sodium Level 137, Potassium Level 4.9, Chloride Level 101, Carbon Dioxide Level 18L, Anion Gap 18H, Blood Urea Nitrogen 5L, Creatinine 0.6 , Estimat Glomerular Filtration Rate , Glucose Level 223H, Calcium Level 8.0L, Phosphorus Level 2.3L, Magnesium Level 1.4L, Total Bilirubin 1.3H, Direct Bilirubin 0.5H, Aspartate Amino Transf (AST/SGOT) 33, Alanine Aminotransferase ( ALT/SGPT) 53, Alkaline Phosphatase 314H, Total Protein 5.4L, Albumin 1.7L Height (Feet): 5 Height (Inches): 0.00 Weight (Pounds): 122 General Appearance: no apparent distress EENT: other - NGT to suction Cardiovascular: tachycardia Respiratory/Chest: decreased breath sounds Abdomen: distended Objective no change El Clark MD Mar 15, 2019 12:56
[2019-03-15] MEDS ORDERED: Barium EZ Gas II granules MC PRN (13:30)
[2019-03-15] MEDS ORDERED: Varibar Thin Liquid powder 148gm MC PRN (13:30)
[2019-03-15] MEDS ORDERED: Barium EZ HD MC PRN (13:30)
[2019-03-15] MEDS: NS w/KCl 20mEq 1000ml 1,000 ML IV SCH (14:25)
--- NOTE | 2019-03-15 15:13 | NUR ---
NURSE NOTES: Patient off unit for procedure in stable condition. IV and NG tube patent.
[2019-03-15 16:00] VITALS: BP 135/83
--- NOTE | 2019-03-15 16:15 | NUR ---
NURSE NOTES: Patient came back from procedure in stable condition. NG tube connect to suction as ordered. Will continue to monitor.
--- NOTE | 2019-03-15 17:29 | Diagnostic Imaging Report ---
INDICATION: Status post surgery for perforated gastric ulcer, evaluation for postoperative leakage TECHNIQUE: Intraoperative imaging Fluoroscopy time: 164.8 seconds Total dose: 1.21 mGym2 Total number of images: 19 COMPARISON: None FINDINGS: Opacification of the stomach is noted. This appears normal in configuration. There is reflux of contrast into the distal esophagus. No leakage of contrast is demonstrated. Normal forward propulsion of contrast into the duodenum and small bowel are noted. IMPRESSION: Negative for postoperative leak Findings previously reported to Dr. Sheth
--- NOTE | 2019-03-15 17:30 | Internal Med Progress Note ---
Subjective Date of Service: Mar 15, 2019 Physician Name Zen Paige Attending Physician Marcos Silva MD Current Medications Medications (Trade) Dose Ordered Sig/Shantelle Route PRN Reason Start Time Stop Time Status Last Admin Dose Admin Acetaminophen (Tylenol) 650 mg Q4H PRN RECTAL FEVER (T>100.5F) 03/13/19 18:30 04/09/19 18:29 Barium Sulfate (Barium EZ Gas II) 1 ea NOW PRN Radiology Procedure 03/15/19 13:30 03/18/19 13:25 Barium Sulfate (Barium EZ HD) 1 ea NOW PRN Radiology Procedure 03/15/19 13:30 03/18/19 13:25 Barium Sulfate (Varibar Thin Liquid powder) 148 gm NOW PRN Radiology Procedure 03/15/19 13:30 03/18/19 13:25 Fluconazole/ Sodium Chloride 100 ml @ 100 mls/hr Q24H IV 03/13/19 22:00 03/17/19 21:59 03/14/19 21:00 Heparin Sodium (Porcine) (Heparin 5000 units/ml) 5,000 units EVERY 12 HOURS SUBQ 03/13/19 21:00 04/09/19 20:59 03/15/19 08:29 Morphine Sulfate (Morphine Sulfate) 2 mg Q1H PRN IVP pain scale 4-6 03/13/19 17:45 03/17/19 18:33 03/15/19 03:24 Morphine Sulfate (Morphine Sulfate) 2 mg Q4H PRN IVP Severe Pain (Pain Scale 7-10) 03/13/19 17:15 03/17/19 13:14 03/14/19 20:23 Ondansetron HCl (Zofran) 4 mg Q6H PRN IVP Nausea & Vomiting 03/13/19 19:15 04/09/19 13:14 Pantoprazole (Protonix) 40 mg EVERY 12 HOURS IVP 03/13/19 21:00 04/12/19 17:59 03/15/19 08:25 Potassium Chloride/Sodium Chloride 1,000 ml @ 50 mls/hr Q20H IV 03/15/19 14:00 04/14/19 13:59 03/15/19 14:25 Allergies: Coded Allergies: No Known Allergies (Unverified , 03/10/19) ROS Limited/Unobtainable: No Constitutional: Reports: no symptoms HEENT: Reports: no symptoms Cardiovascular: Reports: no symptoms Respiratory: Reports: no symptoms Gastrointestinal/Abdominal: Reports: abdominal pain Genitourinary: Reports: no symptoms Neurologic/Psychiatric: Reports: no symptoms Subjective 84 YO F admitted with abdominal pain. S/P exploratory laparotomy 03/10/19. Cover for Int Marcus-Dr Silva. Objective Last Vital Signs Date Time Temp Pulse Resp B/P (MAP) Pulse Ox O2 Delivery O2 Flow Rate FiO2 03/15/19 16:00 97.9 97 18 135/83 (100) 96 03/15/19 09:00 Nasal Cannula 2.0 03/14/19 17:39 28 Laboratory Tests Test 03/15/19 06:30 White Blood Count 9.2 K/UL (4.8-10.8) Red Blood Count 3.64 M/UL (4.20-5.40) L Hemoglobin 10.7 G/DL (12.0-16.0) L Hematocrit 33.4 % (37.0-47.0) L Mean Corpuscular Volume 92 FL (80-99) Mean Corpuscular Hemoglobin 29.5 PG (27.0-31.0) Mean Corpuscular Hemoglobin Concent 32.2 G/DL (32.0-36.0) Red Cell Distribution Width 14.0 % (11.6-14.8) Platelet Count 140 K/UL (150-450) L Mean Platelet Volume 8.5 FL (6.5-10.1) Neutrophils (%) (Auto) % (45.0-75.0) Lymphocytes (%) (Auto) % (20.0-45.0) Monocytes (%) (Auto) % (1.0-10.0) Eosinophils (%) (Auto) % (0.0-3.0) Basophils (%) (Auto) % (0.0-2.0) Differential Total Cells Counted 100 Neutrophils % (Manual) 90 % (45-75) H Lymphocytes % (Manual) 8 % (20-45) L Monocytes % (Manual) 2 % (1-10) Eosinophils % (Manual) 0 % (0-3) Basophils % (Manual) 0 % (0-2) Band Neutrophils 0 % (0-8) Platelet Estimate Decreased L Platelet Morphology Normal Sodium Level 137 MMOL/L (136-145) Potassium Level 4.9 MMOL/L (3.5-5.1) Chloride Level 101 MMOL/L (98-107) Carbon Dioxide Level 18 MMOL/L (21-32) L Anion Gap 18 mmol/L (5-15) H Blood Urea Nitrogen 5 mg/dL (7-18) L Creatinine 0.6 MG/DL (0.55-1.30) Estimat Glomerular Filtration Rate mL/min (>60) Glucose Level 223 MG/DL (74-106) H Calcium Level 8.0 MG/DL (8.5-10.1) L Phosphorus Level 2.3 MG/DL (2.5-4.9) L Magnesium Level 1.4 MG/DL (1.8-2.4) L Total Bilirubin 1.3 MG/DL (0.2-1.0) H Direct Bilirubin 0.5 MG/DL (0.0-0.3) H Aspartate Amino Transf (AST/SGOT) 33 U/L (15-37) Alanine Aminotransferase (ALT/SGPT) 53 U/L (12-78) Alkaline Phosphatase 314 U/L (46-116) H Total Protein 5.4 G/DL (6.4-8.2) L Albumin 1.7 G/DL (3.4-5.0) L Intake and Output 03/14/19 03/15/19 19:00 07:00 Intake Total 150 ml Output Total 2100 ml 50 ml Balance -2100 ml 100 ml Intake Oral 0 ml IV Total 150 ml Output Urine Total 2100 ml Gastric Drainage Total 50 ml # Voids 1 # Bowel Movements 1 Objective PHYSICAL EXAMINATION: GENERAL: The patient is a well developed, well nourished female who is intubated and sedated. HEENT: Eyes, pupils equal and responsive to light and accommodation. Extraocular movements are intact. NECK: Supple without lymphadenopathy. CHEST: Nasc canula; Few diffuse wheezes bilaterally. Otherwise, without wheezes or rales. CARDIOVASCULAR: Regular rhythm rate. S1-S2 are normal without murmurs, rubs, or gallops. ABDOMEN: NGT; Soft, nontender with decreased bowel sounds. No evidence of hepatosplenomegaly. no rebound or guarding noted. EXTREMITIES: Negative for clubbing, cyanosis, edema. RECTAL/GENITAL: Not performed. NEUROLOGIC: Cranial nerves II through XII are grossly intact without focal deficits. Assessment/Plan Assessment/Plan ASSESSMENT: This is an 84-year-old female. 1. Perforated gastric ulcer 2. Abdominal pain. 3. Nausea with vomiting. 4. Diabetes type 2. 5. Hypertension. TREATMENT: 1. Perforated gastric ulcer. A General Surgery consultation has been obtained with Dr. Sheth. S/P exploratory laparotomy 03/10/19=perforated gastric ulcer. NPO; NGT in place 2. Diabetes type 2. NovoLog sliding scale has been instituted. 3. Hypertension. The patient is currently hypotensive. 4. Respiratory failure. S/P extubation 03/12/19. A Pulmonary consultation has been obtained with Dr. Bibiana Pennington. 5. Med/surg Zen Paige MD Mar 15, 2019 17:29
--- NOTE | 2019-03-15 19:30 | NUR ---
NURSE NOTES: received report from SARAI Dennis. Patient is resting in bed. NG attached to low intermittent suction draining dark green fluid. IV running fluids 1/2Ns +20KCl at 50ml/hr. Room no c/o of pain or SOB. Will continue to monitor.
--- NOTE | 2019-03-15 19:30 | NUR ---
HAND-OFF: Report given to Moe MOON and Diego MOON. Patient in stable condition.
[2019-03-15 20:00] VITALS: BP 130/63
[2019-03-16] VITALS: BP 128/61
[2019-03-16 04:00] VITALS: BP 136/63
[2019-03-16 06:25] LABS: BASOPHILS % (AUTO) 0.5 % (0.0-2.0); EOSINOPHILS % (AUTO) 1.3 % (0.0-3.0); HEMATOCRIT 27.2 % (37.0-47.0); HEMOGLOBIN 8.8 G/DL (12.0-16.0); LYMPHOCYTES % (AUTO) 9.8 % (20.0-45.0); MEAN CORPUSCULAR VOLUME 92 FL (80-99); NEUTROPHILS % (AUTO) 83.4 % (45.0-75.0); PLATELET COUNT 132 K/UL (150-450); RED BLOOD COUNT 2.96 M/UL (4.20-5.40); RED CELL DISTRIBUTION WIDTH 14.1 % (11.6-14.8); WHITE BLOOD COUNT 8.4 K/UL (4.8-10.8)
[2019-03-16 06:28] LABS: ANION GAP 12 mmol/L (5-15); BLOOD UREA NITROGEN 5 mg/dL (7-18); CALCIUM 7.7 MG/DL (8.5-10.1); CARBON DIOXIDE 21 MMOL/L (21-32); CHLORIDE 106 MMOL/L (98-107); CREATININE 0.5 MG/DL (0.55-1.30); SODIUM 139 MMOL/L (136-145)
[2019-03-16] MEDS: Morphine Sulfate 2mg/ml Inj(IV/IM USE ONLY) IVP PRN ×2 (06:59→11:49)
--- NOTE | 2019-03-16 07:19 | NUR ---
HAND-OFF: Report given to SARAI Patel. Patient in stable condition.
[2019-03-16 08:00] VITALS: BP 145/70
--- NOTE | 2019-03-16 08:10 | NUR ---
NURSE NOTES: NG tube removed at bedside by Dr. Sheth, will discontinue on Shift Physical Assessment
--- NOTE | 2019-03-16 08:25 | NUR ---
NURSE NOTES: Informed Dr. Obando of patient's hbg 8.8. No new orders received at this time.
[2019-03-16] MEDS: Pantoprazole Inj IVP SCH (08:26)
[2019-03-16] MEDS: Heparin 5000 units/ml inj SUBQ SCH ×2 (08:27→20:29)
[2019-03-16 08:38] LABS: ALANINE AMINOTRANSFERASE 35 U/L (12-78); ALBUMIN 1.5 G/DL (3.4-5.0); ALKALINE PHOSPHATASE 230 U/L (46-116); ASPARTATE AMINO TRANSFERASE 22 U/L (15-37); BILIRUBIN,DIRECT 0.3 MG/DL (0.0-0.3); BILIRUBIN,TOTAL 0.8 MG/DL (0.2-1.0); PHOSPHORUS 1.5 MG/DL (2.5-4.9)
[2019-03-16] MEDS: NS w/KCl 20mEq 1000ml 1,000 ML IV SCH (09:08)
--- NOTE | 2019-03-16 10:54 | Pulmonology Progress Note ---
Assessment/Plan Problems: (1) S/P exploratory laparotomy (2) Perforated abdominal viscus (3) Septic shock (4) Diabetes mellitus (5) Peritonitis Assessment/Plan improving NG tube is pulled on clear liquid advance diet as tolerated. iv fluids check electrolytes check cultures Subjective ROS Limited/Unobtainable: No Constitutional: Reports: no symptoms HEENT: Repors: no symptoms Allergies: Coded Allergies: No Known Allergies (Unverified , 03/10/19) Objective Last 24 Hour Vital Signs Date Time Temp Pulse Resp B/P (MAP) Pulse Ox O2 Delivery O2 Flow Rate FiO2 03/16/19 09:00 Room Air 03/16/19 08:00 98.6 85 16 145/70 (95) 97 03/16/19 04:00 99.2 84 16 136/63 (87) 94 03/16/19 00:00 98.6 91 18 128/61 (83) 95 03/15/19 21:00 Room Air 03/15/19 20:00 99.3 86 17 130/63 (85) 100 03/15/19 19:00 96 Room Air 21 03/15/19 16:00 97.9 97 18 135/83 (100) 96 03/15/19 12:00 98.2 82 17 133/70 (91) 96 Intake and Output 03/15/19 03/16/19 19:00 07:00 Intake Total 50 ml 550 ml Output Total 150 ml 100 ml Balance -100 ml 450 ml Intake Oral 0 ml IV Total 50 ml 550 ml Gastric Drainage Total 150 ml 100 ml # Voids 5 1 # Bowel Movements 2 General Appearance: WD/WN HEENT: normocephalic Respiratory/Chest: chest wall non-tender, lungs clear Breasts: no masses Cardiovascular: normal peripheral pulses Abdomen: normal bowel sounds, soft, non tender Genitourinary: normal external genitalia Extremities: no clubbing Skin: no ulcers 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/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 Laboratory Tests 03/16/19 04:40: White Blood Count 8.4, Red Blood Count 2.96L, Hemoglobin 8.8L, Hematocrit 27.2L , Mean Corpuscular Volume 92, Mean Corpuscular Hemoglobin 29.5, Mean Corpuscular Hemoglobin Concent 32.2, Red Cell Distribution Width 14.1, Platelet Count 132L, Mean Platelet Volume 7.2, Neutrophils (%) (Auto) 83.4H, Lymphocytes (%) (Auto) 9.8L, Monocytes (%) (Auto) 5.0, Eosinophils (%) (Auto) 1.3, Basophils (%) (Auto) 0.5, Sodium Level 139, Potassium Level 4.0, Chloride Level 106, Carbon Dioxide Level 21, Anion Gap 12, Blood Urea Nitrogen 5L, Creatinine 0.5L, Estimat Glomerular Filtration Rate , Glucose Level 176H, Calcium Level 7.7L, Phosphorus Level 1.5L, Magnesium Level 1.7L, Total Bilirubin 0.8, Direct Bilirubin 0.3, Aspartate Amino Transf (AST/SGOT) 22, Alanine Aminotransferase ( ALT/SGPT) 35, Alkaline Phosphatase 230H, Total Protein 4.8L, Albumin 1.5L Current Medications Medications (Trade) Dose Ordered Sig/Shantelle Route PRN Reason Start Time Stop Time Status Last Admin Dose Admin Acetaminophen (Tylenol) 650 mg Q4H PRN RECTAL FEVER (T>100.5F) 03/13/19 18:30 04/09/19 18:29 Barium Sulfate (Barium EZ Gas II) 1 ea NOW PRN Radiology Procedure 03/15/19 13:30 03/18/19 13:25 Barium Sulfate (Barium EZ HD) 1 ea NOW PRN Radiology Procedure 03/15/19 13:30 03/18/19 13:25 Barium Sulfate (Varibar Thin Liquid powder) 148 gm NOW PRN Radiology Procedure 03/15/19 13:30 03/18/19 13:25 Fluconazole/ Sodium Chloride 100 ml @ 100 mls/hr Q24H IV 03/13/19 22:00 03/17/19 21:59 03/15/19 20:42 Heparin Sodium (Porcine) (Heparin 5000 units/ml) 5,000 units EVERY 12 HOURS SUBQ 03/13/19 21:00 04/09/19 20:59 03/16/19 08:27 Morphine Sulfate (Morphine Sulfate) 2 mg Q1H PRN IVP pain scale 4-6 03/13/19 17:45 03/17/19 18:33 03/15/19 03:24 Morphine Sulfate (Morphine Sulfate) 2 mg Q4H PRN IVP Severe Pain (Pain Scale 7-10) 03/13/19 17:15 03/17/19 13:14 03/16/19 06:59 Ondansetron HCl (Zofran) 4 mg Q6H PRN IVP Nausea & Vomiting 03/13/19 19:15 04/09/19 13:14 Pantoprazole (Protonix) 40 mg EVERY 12 HOURS IVP 03/13/19 21:00 04/12/19 17:59 03/16/19 08:26 Potassium Chloride/Sodium Chloride 1,000 ml @ 50 mls/hr Q20H IV 03/15/19 14:00 04/14/19 13:59 03/16/19 09:08 Bibiana Pennington MD Mar 16, 2019 10:54
--- NOTE | 2019-03-16 10:55 | NUR ---
NURSE NOTES: Informed Dr. Clark of patient's magnesium and phos levels. MD is aware, stated he will put in orders for replacement. Will continue to monitor.
[2019-03-16 12:00] VITALS: BP 131/66
--- NOTE | 2019-03-16 12:18 | Internal Med Progress Note ---
Subjective Date of Service: Mar 16, 2019 Physician Name Zen Paige Attending Physician Marcos Silva MD Current Medications Medications (Trade) Dose Ordered Sig/Shantelle Route PRN Reason Start Time Stop Time Status Last Admin Dose Admin Acetaminophen (Tylenol) 650 mg Q4H PRN RECTAL FEVER (T>100.5F) 03/13/19 18:30 04/09/19 18:29 Barium Sulfate (Barium EZ Gas II) 1 ea NOW PRN Radiology Procedure 03/15/19 13:30 03/18/19 13:25 Barium Sulfate (Barium EZ HD) 1 ea NOW PRN Radiology Procedure 03/15/19 13:30 03/18/19 13:25 Barium Sulfate (Varibar Thin Liquid powder) 148 gm NOW PRN Radiology Procedure 03/15/19 13:30 03/18/19 13:25 Fluconazole/ Sodium Chloride 100 ml @ 100 mls/hr Q24H IV 03/13/19 22:00 03/17/19 21:59 03/15/19 20:42 Heparin Sodium (Porcine) (Heparin 5000 units/ml) 5,000 units EVERY 12 HOURS SUBQ 03/13/19 21:00 04/09/19 20:59 03/16/19 08:27 Morphine Sulfate (Morphine Sulfate) 2 mg Q1H PRN IVP pain scale 4-6 03/13/19 17:45 03/17/19 18:33 03/15/19 03:24 Morphine Sulfate (Morphine Sulfate) 2 mg Q4H PRN IVP Severe Pain (Pain Scale 7-10) 03/13/19 17:15 03/17/19 13:14 03/16/19 11:49 Ondansetron HCl (Zofran) 4 mg Q6H PRN IVP Nausea & Vomiting 03/13/19 19:15 04/09/19 13:14 Pantoprazole (Protonix) 40 mg EVERY 12 HOURS IVP 03/13/19 21:00 04/12/19 17:59 03/16/19 08:26 Potassium Chloride/Sodium Chloride 1,000 ml @ 50 mls/hr Q20H IV 03/15/19 14:00 04/14/19 13:59 03/16/19 09:08 Allergies: Coded Allergies: No Known Allergies (Unverified , 03/10/19) ROS Limited/Unobtainable: No Constitutional: Reports: no symptoms HEENT: Reports: no symptoms Cardiovascular: Reports: no symptoms Respiratory: Reports: no symptoms Gastrointestinal/Abdominal: Reports: abdominal pain Genitourinary: Reports: no symptoms Neurologic/Psychiatric: Reports: no symptoms Subjective 84 YO F admitted with abdominal pain. S/P exploratory laparotomy 03/10/19. Cover for Int [facility]-Dr Silva. Objective Last Vital Signs Date Time Temp Pulse Resp B/P (MAP) Pulse Ox O2 Delivery O2 Flow Rate FiO2 03/16/19 12:00 97.4 87 16 131/66 (87) 97 03/16/19 09:00 Room Air 03/15/19 19:00 21 03/15/19 09:00 2.0 Laboratory Tests Test 03/16/19 04:40 White Blood Count 8.4 K/UL (4.8-10.8) Red Blood Count 2.96 M/UL (4.20-5.40) L Hemoglobin 8.8 G/DL (12.0-16.0) L Hematocrit 27.2 % (37.0-47.0) L Mean Corpuscular Volume 92 FL (80-99) Mean Corpuscular Hemoglobin 29.5 PG (27.0-31.0) Mean Corpuscular Hemoglobin Concent 32.2 G/DL (32.0-36.0) Red Cell Distribution Width 14.1 % (11.6-14.8) Platelet Count 132 K/UL (150-450) L Mean Platelet Volume 7.2 FL (6.5-10.1) Neutrophils (%) (Auto) 83.4 % (45.0-75.0) H Lymphocytes (%) (Auto) 9.8 % (20.0-45.0) L Monocytes (%) (Auto) 5.0 % (1.0-10.0) Eosinophils (%) (Auto) 1.3 % (0.0-3.0) Basophils (%) (Auto) 0.5 % (0.0-2.0) Sodium Level 139 MMOL/L (136-145) Potassium Level 4.0 MMOL/L (3.5-5.1) Chloride Level 106 MMOL/L (98-107) Carbon Dioxide Level 21 MMOL/L (21-32) Anion Gap 12 mmol/L (5-15) Blood Urea Nitrogen 5 mg/dL (7-18) L Creatinine 0.5 MG/DL (0.55-1.30) L Estimat Glomerular Filtration Rate mL/min (>60) Glucose Level 176 MG/DL (74-106) H Calcium Level 7.7 MG/DL (8.5-10.1) L Phosphorus Level 1.5 MG/DL (2.5-4.9) L Magnesium Level 1.7 MG/DL (1.8-2.4) L Total Bilirubin 0.8 MG/DL (0.2-1.0) Direct Bilirubin 0.3 MG/DL (0.0-0.3) Aspartate Amino Transf (AST/SGOT) 22 U/L (15-37) Alanine Aminotransferase (ALT/SGPT) 35 U/L (12-78) Alkaline Phosphatase 230 U/L (46-116) H Total Protein 4.8 G/DL (6.4-8.2) L Albumin 1.5 G/DL (3.4-5.0) L Intake and Output 03/15/19 03/16/19 19:00 07:00 Intake Total 50 ml 550 ml Output Total 150 ml 100 ml Balance -100 ml 450 ml Intake Oral 0 ml IV Total 50 ml 550 ml Gastric Drainage Total 150 ml 100 ml # Voids 5 1 # Bowel Movements 2 Objective PHYSICAL EXAMINATION: GENERAL: The patient is a well developed, well nourished female who is intubated and sedated. HEENT: Eyes, pupils equal and responsive to light and accommodation. Extraocular movements are intact. NECK: Supple without lymphadenopathy. CHEST: Nasc canula; Few diffuse wheezes bilaterally. Otherwise, without wheezes or rales. CARDIOVASCULAR: Regular rhythm rate. S1-S2 are normal without murmurs, rubs, or gallops. ABDOMEN: NGT; Soft, nontender with decreased bowel sounds. No evidence of hepatosplenomegaly. no rebound or guarding noted. EXTREMITIES: Negative for clubbing, cyanosis, edema. RECTAL/GENITAL: Not performed. NEUROLOGIC: Cranial nerves II through XII are grossly intact without focal deficits. Assessment/Plan Assessment/Plan ASSESSMENT: This is an 84-year-old female. 1. Perforated gastric ulcer 2. Abdominal pain. 3. Nausea with vomiting. 4. Diabetes type 2. 5. Hypertension. TREATMENT: 1. Perforated gastric ulcer. A General Surgery consultation has been obtained with Dr. Sheth. S/P exploratory laparotomy 03/10/19=perforated gastric ulcer. NPO; NGT in place 2. Diabetes type 2. NovoLog sliding scale has been instituted. 3. Hypertension. The patient is currently hypotensive. 4. Respiratory failure. S/P extubation 03/12/19. A Pulmonary consultation has been obtained with Dr. Bibiana Pennington. 5. Med/surg Zen Paige MD Mar 16, 2019 12:18
--- NOTE | 2019-03-16 12:33 | NUR ---
CASE MANAGEMENT: REVIEW 03/16/2019 SI:PERFORATED VISCUS. T 97.4 HR 87 RR 16 B/P 131/66 SATS 97% ON RA BUN 5 CR 0.5 GLU 176 CA 7.7 PHOS 1.5 MG 1.7 ALP 230 IS: ZOSYN IV Q8H PROTONIX IV BID FLUCONAZOLE IV Q24H KCL IV @ 50 mL/HR MED/SURG DCP: PATIENT TO BE DISCHARGED TO HOME ONCE MEDICALLY CLEARED.
--- NOTE | 2019-03-16 12:56 | Nephrology Progress Note ---
Assessment/Plan Problem List: (1) Perforated abdominal viscus (2) Hypokalemia (3) Hypomagnesemia (4) Diabetes mellitus (5) Anemia Assessment Post lap on 03/10 Low K Low Phos Low Mag Anemia DM h/o HTN Plan DC IV change all to orals Mag and K and Phos IV as needed Anemia claudio Keep BP and BS in check per orders DC planning Subjective ROS Limited/Unobtainable: No Objective Objective Last 24 Hour Vital Signs Date Time Temp Pulse Resp B/P (MAP) Pulse Ox O2 Delivery O2 Flow Rate FiO2 03/16/19 12:00 97.4 87 16 131/66 (87) 97 03/16/19 09:00 Room Air 03/16/19 08:00 98.6 85 16 145/70 (95) 97 03/16/19 04:00 99.2 84 16 136/63 (87) 94 03/16/19 00:00 98.6 91 18 128/61 (83) 95 03/15/19 21:00 Room Air 03/15/19 20:00 99.3 86 17 130/63 (85) 100 03/15/19 19:00 96 Room Air 21 03/15/19 16:00 97.9 97 18 135/83 (100) 96 Intake and Output 03/15/19 03/16/19 19:00 07:00 Intake Total 50 ml 550 ml Output Total 150 ml 100 ml Balance -100 ml 450 ml Intake Oral 0 ml IV Total 50 ml 550 ml Gastric Drainage Total 150 ml 100 ml # Voids 5 1 # Bowel Movements 2 Laboratory Tests 03/16/19 04:40: White Blood Count 8.4, Red Blood Count 2.96L, Hemoglobin 8.8L, Hematocrit 27.2L , Mean Corpuscular Volume 92, Mean Corpuscular Hemoglobin 29.5, Mean Corpuscular Hemoglobin Concent 32.2, Red Cell Distribution Width 14.1, Platelet Count 132L, Mean Platelet Volume 7.2, Neutrophils (%) (Auto) 83.4H, Lymphocytes (%) (Auto) 9.8L, Monocytes (%) (Auto) 5.0, Eosinophils (%) (Auto) 1.3, Basophils (%) (Auto) 0.5, Sodium Level 139, Potassium Level 4.0, Chloride Level 106, Carbon Dioxide Level 21, Anion Gap 12, Blood Urea Nitrogen 5L, Creatinine 0.5L, Estimat Glomerular Filtration Rate , Glucose Level 176H, Calcium Level 7.7L, Phosphorus Level 1.5L, Magnesium Level 1.7L, Total Bilirubin 0.8, Direct Bilirubin 0.3, Aspartate Amino Transf (AST/SGOT) 22, Alanine Aminotransferase ( ALT/SGPT) 35, Alkaline Phosphatase 230H, Total Protein 4.8L, Albumin 1.5L Height (Feet): 5 Height (Inches): 0.00 Weight (Pounds): 123 General Appearance: no apparent distress Objective no change El Clark MD Mar 16, 2019 12:56
[2019-03-16] MEDS ORDERED: HydrOXYzine tab 25mg tab ORAL PRN (13:00)
--- NOTE | 2019-03-16 13:11 | Infectious Diseases Prog Note ---
Assessment/Plan Assessment/Plan Assessment: Perforated pre-pyloric gastric ulcer -s/p UGI series: Negative for postoperative leak -03/10 SP 03/10 SP Exploratory Laparotomy, Abdominal washout. Partial omentectomy. Shane patch for repair of perforated pre-pyloric ulcer. -03/10 CT abd/p: Free intraperitoneal gas. Etiology not completely certain, but gas within and extending from the anterior gastric antral wall is suspicious for a perforated gastric ulcer. Perforated descending colon diverticulitis also possible but deemed much less likely. Free intraperitoneal fluid, presumably related to the above. Fatty liver. Basilar pulmonary parenchymal groundglass opacities. This could indicate pulmonary edema, among other possibilities. Subcentimeter low-attenuation renal lesions, too small to characterize, most likely benign simple cyst. No further follow-up necessary. 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 Afebrile Mild leukocytosis, SP -u/a neg -CXR: Bilateral basilar atelectatic changes VDRF, post-op; extubated 03/12 DARRON, SP Dm2 HTN Plan: -Cont Fluconazole #4/7-10 for thrush -03/15 SP Zosyn #6 -03/10 SP IV Vancomycin #1, Ancef x1 -f/u cx -Monitor CBC/CMP, temperatures -Sx f/u -wound care per surgical team -aspiration precautions Thank you for this consultation. Will continue to follow along with you. Discussed with RN Subjective Allergies: Coded Allergies: No Known Allergies (Unverified , 03/10/19) Subjective afebrile no leukocytosis Objective Vital Signs Last 24 Hour Vital Signs Date Time Temp Pulse Resp B/P (MAP) Pulse Ox O2 Delivery O2 Flow Rate FiO2 03/16/19 12:00 97.4 87 16 131/66 (87) 97 03/16/19 09:00 Room Air 03/16/19 08:00 98.6 85 16 145/70 (95) 97 03/16/19 04:00 99.2 84 16 136/63 (87) 94 03/16/19 00:00 98.6 91 18 128/61 (83) 95 03/15/19 21:00 Room Air 03/15/19 20:00 99.3 86 17 130/63 (85) 100 03/15/19 19:00 96 Room Air 21 03/15/19 16:00 97.9 97 18 135/83 (100) 96 Height (Feet): 5 Height (Inches): 0.00 Weight (Pounds): 123 Objective General appearance: alert, cooperative, no distress, appears stated age Head: Normocephalic, without obvious abnormality, atraumatic Eyes: conjunctivae/corneas clear. PERRL, EOM's intact. Fundi benign Throat: Lips, mucosa, and tongue normal. Teeth and gums normal Neck: supple, symmetrical, trachea midline, no adenopathy, thyroid: not enlarged, symmetric, no tenderness/mass/nodules, no carotid bruit and no JVD Lungs: clear to auscultation bilaterally Heart: regular rate and rhythm, S1, S2 normal, no murmur, click, rub or gallop Abdomen: soft, peritonitis with tender. Bowel sounds normal. No masses, no organomegaly Extremities: extremities normal, atraumatic, no cyanosis or edema Pulses: 2+ and symmetric Skin: Skin color, texture, turgor normal. No rashes or lesions Neurologic: Grossly normal Laboratory Tests Test 03/16/19 04:40 White Blood Count 8.4 K/UL (4.8-10.8) Red Blood Count 2.96 M/UL (4.20-5.40) L Hemoglobin 8.8 G/DL (12.0-16.0) L Hematocrit 27.2 % (37.0-47.0) L Mean Corpuscular Volume 92 FL (80-99) Mean Corpuscular Hemoglobin 29.5 PG (27.0-31.0) Mean Corpuscular Hemoglobin Concent 32.2 G/DL (32.0-36.0) Red Cell Distribution Width 14.1 % (11.6-14.8) Platelet Count 132 K/UL (150-450) L Mean Platelet Volume 7.2 FL (6.5-10.1) Neutrophils (%) (Auto) 83.4 % (45.0-75.0) H Lymphocytes (%) (Auto) 9.8 % (20.0-45.0) L Monocytes (%) (Auto) 5.0 % (1.0-10.0) Eosinophils (%) (Auto) 1.3 % (0.0-3.0) Basophils (%) (Auto) 0.5 % (0.0-2.0) Sodium Level 139 MMOL/L (136-145) Potassium Level 4.0 MMOL/L (3.5-5.1) Chloride Level 106 MMOL/L (98-107) Carbon Dioxide Level 21 MMOL/L (21-32) Anion Gap 12 mmol/L (5-15) Blood Urea Nitrogen 5 mg/dL (7-18) L Creatinine 0.5 MG/DL (0.55-1.30) L Estimat Glomerular Filtration Rate mL/min (>60) Glucose Level 176 MG/DL (74-106) H Calcium Level 7.7 MG/DL (8.5-10.1) L Phosphorus Level 1.5 MG/DL (2.5-4.9) L Magnesium Level 1.7 MG/DL (1.8-2.4) L Total Bilirubin 0.8 MG/DL (0.2-1.0) Direct Bilirubin 0.3 MG/DL (0.0-0.3) Aspartate Amino Transf (AST/SGOT) 22 U/L (15-37) Alanine Aminotransferase (ALT/SGPT) 35 U/L (12-78) Alkaline Phosphatase 230 U/L (46-116) H Total Protein 4.8 G/DL (6.4-8.2) L Albumin 1.5 G/DL (3.4-5.0) L Current Medications Medications (Trade) Dose Ordered Sig/Shantelle Route PRN Reason Start Time Stop Time Status Last Admin Dose Admin Acetaminophen (Tylenol) 650 mg Q4H PRN RECTAL FEVER (T>100.5F) 03/13/19 18:30 04/09/19 18:29 Barium Sulfate (Barium EZ Gas II) 1 ea NOW PRN Radiology Procedure 03/15/19 13:30 03/18/19 13:25 Barium Sulfate (Barium EZ HD) 1 ea NOW PRN Radiology Procedure 03/15/19 13:30 03/18/19 13:25 Barium Sulfate (Varibar Thin Liquid powder) 148 gm NOW PRN Radiology Procedure 03/15/19 13:30 03/18/19 13:25 Fluconazole/ Sodium Chloride 100 ml @ 100 mls/hr Q24H IV 03/13/19 22:00 03/17/19 21:59 03/15/19 20:42 Heparin Sodium (Porcine) (Heparin 5000 units/ml) 5,000 units EVERY 12 HOURS SUBQ 03/13/19 21:00 04/09/19 20:59 03/16/19 08:27 Hydroxyzine HCl (Atarax) 25 mg Q6H PRN ORAL Itching 03/16/19 13:00 04/15/19 12:59 Magnesium Oxide (Mag-Ox 400mg) 400 mg THREE TIMES A DAY ORAL 03/16/19 13:00 03/18/19 12:59 Ondansetron HCl (Zofran) 4 mg Q6H PRN IVP Nausea & Vomiting 03/13/19 19:15 04/09/19 13:14 Pantoprazole (Protonix) 40 mg EVERY 12 HOURS ORAL 03/16/19 21:00 04/15/19 20:59 Phosphorus (Phospha 250 Neutral) 250 mg THREE TIMES A DAY ORAL 03/16/19 13:00 03/18/19 12:59 Tramadol HCl (Ultram) 25 mg Q6H PRN ORAL pain over 4 03/16/19 13:00 03/23/19 12:59 Janette Stallworth M.D. Mar 16, 2019 13:11
[2019-03-16] MEDS: Magnesium Oxide 400mg tab ORAL SCH ×2 (13:41→17:50)
[2019-03-16] MEDS: Phospha 250 Neutral tab ORAL SCH ×2 (13:42→17:50)
--- NOTE | 2019-03-16 14:57 | Surgery Progress Note ---
Surgery Progress Note Subjective Procedure Performed ex lap with imelda patch, washout, omentectomy Additional Comments improved kub noted. labs noted exam improved. Objective Last 24 Hour Vital Signs Date Time Temp Pulse Resp B/P (MAP) Pulse Ox O2 Delivery O2 Flow Rate FiO2 03/16/19 12:00 97.4 87 16 131/66 (87) 97 03/16/19 09:00 Room Air 03/16/19 08:00 98.6 85 16 145/70 (95) 97 03/16/19 04:00 99.2 84 16 136/63 (87) 94 03/16/19 00:00 98.6 91 18 128/61 (83) 95 03/15/19 21:00 Room Air 03/15/19 20:00 99.3 86 17 130/63 (85) 100 03/15/19 19:00 96 Room Air 21 03/15/19 16:00 97.9 97 18 135/83 (100) 96 I&O Intake and Output 03/15/19 03/16/19 19:00 07:00 Intake Total 50 ml 550 ml Output Total 150 ml 100 ml Balance -100 ml 450 ml Intake Oral 0 ml IV Total 50 ml 550 ml Gastric Drainage Total 150 ml 100 ml # Voids 5 1 # Bowel Movements 2 Dressing: dry Wound: clean, dry Cardiovascular: RSR Respiratory: clear Abdomen: soft, non-tender, present bowel sounds, non-distended Extremities: no edema, no tenderness, no cyanosis Laboratory Tests Test 03/16/19 04:40 White Blood Count 8.4 K/UL (4.8-10.8) Red Blood Count 2.96 M/UL (4.20-5.40) L Hemoglobin 8.8 G/DL (12.0-16.0) L Hematocrit 27.2 % (37.0-47.0) L Mean Corpuscular Volume 92 FL (80-99) Mean Corpuscular Hemoglobin 29.5 PG (27.0-31.0) Mean Corpuscular Hemoglobin Concent 32.2 G/DL (32.0-36.0) Red Cell Distribution Width 14.1 % (11.6-14.8) Platelet Count 132 K/UL (150-450) L Mean Platelet Volume 7.2 FL (6.5-10.1) Neutrophils (%) (Auto) 83.4 % (45.0-75.0) H Lymphocytes (%) (Auto) 9.8 % (20.0-45.0) L Monocytes (%) (Auto) 5.0 % (1.0-10.0) Eosinophils (%) (Auto) 1.3 % (0.0-3.0) Basophils (%) (Auto) 0.5 % (0.0-2.0) Sodium Level 139 MMOL/L (136-145) Potassium Level 4.0 MMOL/L (3.5-5.1) Chloride Level 106 MMOL/L (98-107) Carbon Dioxide Level 21 MMOL/L (21-32) Anion Gap 12 mmol/L (5-15) Blood Urea Nitrogen 5 mg/dL (7-18) L Creatinine 0.5 MG/DL (0.55-1.30) L Estimat Glomerular Filtration Rate mL/min (>60) Glucose Level 176 MG/DL (74-106) H Calcium Level 7.7 MG/DL (8.5-10.1) L Phosphorus Level 1.5 MG/DL (2.5-4.9) L Magnesium Level 1.7 MG/DL (1.8-2.4) L Total Bilirubin 0.8 MG/DL (0.2-1.0) Direct Bilirubin 0.3 MG/DL (0.0-0.3) Aspartate Amino Transf (AST/SGOT) 22 U/L (15-37) Alanine Aminotransferase (ALT/SGPT) 35 U/L (12-78) Alkaline Phosphatase 230 U/L (46-116) H Total Protein 4.8 G/DL (6.4-8.2) L Albumin 1.5 G/DL (3.4-5.0) L Assessment Post-op Diagnosis perforated prepyloric gastric ulcer Plan Problems: (1) Peritonitis Assessment & Plan: 84F with perforated abdominal viscus likely gastric perforation based on CT findings s/p imelda patch recovering labs improved exam improved d/c ng tube start diet okay to ambulate thank you (2) Perforated abdominal viscus Mike Sheth Mar 16, 2019 14:57
[2019-03-16 16:00] VITALS: BP 145/79
--- NOTE | 2019-03-16 19:28 | NUR ---
HAND-OFF: Report given to Krishna MOON. Patient is in stable condition.
[2019-03-16 20:00] VITALS: BP 139/63
[2019-03-16] MEDS: Fluconazole 100mg tab ORAL SCH (20:22)
[2019-03-17] VITALS (7 sets, daily range): BP systolic 125–135; BP diastolic 58–69
[2019-03-17 05:49] LABS: BASOPHILS % (AUTO) 0.6 % (0.0-2.0); HEMATOCRIT 27.6 % (37.0-47.0); LYMPHOCYTES % (AUTO) 13.3 % (20.0-45.0); MEAN CORPUSCULAR VOLUME 91 FL (80-99); MONOCYTES % (AUTO) 5.5 % (1.0-10.0); NEUTROPHILS % (AUTO) 78.6 % (45.0-75.0); PLATELET COUNT 153 K/UL (150-450); RED BLOOD COUNT 3.05 M/UL (4.20-5.40); RED CELL DISTRIBUTION WIDTH 14.7 % (11.6-14.8); WHITE BLOOD COUNT 5.8 K/UL (4.8-10.8)
[2019-03-17 06:31] LABS: ALANINE AMINOTRANSFERASE 36 U/L (12-78); ALBUMIN 1.6 G/DL (3.4-5.0); ALBUMIN/GLOBULIN RATIO 0.5 (1.0-2.7); ANION GAP 12 mmol/L (5-15); ASPARTATE AMINO TRANSFERASE 39 U/L (15-37); BILIRUBIN,TOTAL 0.8 MG/DL (0.2-1.0); BLOOD UREA NITROGEN 3 mg/dL (7-18); CARBON DIOXIDE 25 MMOL/L (21-32); CHLORIDE 99 MMOL/L (98-107); CREATININE 0.5 MG/DL (0.55-1.30); SODIUM 136 MMOL/L (136-145)
[2019-03-17 06:32] LABS: POTASSIUM 2.6 MMOL/L (3.5-5.1)
--- NOTE | 2019-03-17 06:40 | NUR ---
NURSE NOTES: Called Dr. Silva for critical value of Potassium 2.6. Waiting for call back.
[2019-03-17 06:52] LABS: ALKALINE PHOSPHATASE 273 U/L (46-116)
--- NOTE | 2019-03-17 07:42 | NUR ---
HAND-OFF: Report given to SARAI Hooker.
--- NOTE | 2019-03-17 07:54 | NUR ---
NURSE NOTES: Patient is awake and alert,patient assisted to the bathroom uses walker,gait slow and steady.Patient had a liquid brown BM,skin care given.abdominal midline incision with anna are intact,no redness or drainage noted from incisio site,patient state she has a little pain,will give pain medication as ordered.Call light within reach.Will monitor.
[2019-03-17] MEDS: Magnesium Oxide 400mg tab ORAL SCH (08:15)
[2019-03-17] MEDS: Phospha 250 Neutral tab ORAL SCH (08:15)
[2019-03-17] MEDS: Heparin 5000 units/ml inj SUBQ SCH ×2 (08:19→20:50)
--- NOTE | 2019-03-17 08:25 | NUR ---
CASE MANAGEMENT: REVIEW 03/17/2019 SI:PERFORATED VISCUS. T 99.6 HR 90 RR 16 B/P 139/63 SATS 95% ON RA K 2.6 BUN 3 CR 0.5 GLU 175 CA 8 AST 39 ALP 273 IS: ZOSYN IV Q8H PROTONIX IV BID FLUCONAZOLE IV Q24H KCL IV @ 50 mL/HR MED/SURG DCP: PATIENT TO BE DISCHARGED TO HOME ONCE MEDICALLY CLEARED.
[2019-03-17] MEDS: traMADol 50mg tab ORAL PRN ×2 (09:50→18:10)
[2019-03-17 09:58] LABS: PHOSPHORUS 2.4 MG/DL (2.5-4.9)
[2019-03-17] MEDS ORDERED: Potassium Phosphate 30 MM in NS 275 ML IV ONE (11:30)
--- NOTE | 2019-03-17 12:25 | Surgery Progress Note ---
Surgery Progress Note Subjective Procedure Performed ex lap with imelda patch, washout, omentectomy Additional Comments doing well post op exam stable tolerating clears Objective Last 24 Hour Vital Signs Date Time Temp Pulse Resp B/P (MAP) Pulse Ox O2 Delivery O2 Flow Rate FiO2 03/17/19 12:00 99.7 82 20 134/63 (86) 98 03/17/19 10:01 Room Air 03/17/19 08:09 99.1 85 20 132/61 (84) 100 03/17/19 04:00 99.1 81 16 135/69 (91) 97 03/17/19 00:00 99.0 83 16 135/64 (87) 97 03/16/19 21:00 Room Air 03/16/19 20:00 99.6 90 16 139/63 (88) 95 03/16/19 20:00 95 Room Air 21 03/16/19 16:00 98.2 92 16 145/79 (101) 95 I&O Intake and Output 03/16/19 03/17/19 19:00 07:00 Intake Total 730 ml Balance 730 ml Intake Oral 480 ml IV Total 250 ml # Voids 3 2 Dressing: dry Wound: clean, dry Cardiovascular: RSR Respiratory: clear Abdomen: soft, flat, non-tender, present bowel sounds, non-distended Extremities: no edema, no tenderness, no cyanosis Laboratory Tests Test 03/17/19 05:15 White Blood Count 5.8 K/UL (4.8-10.8) Red Blood Count 3.05 M/UL (4.20-5.40) L Hemoglobin 9.0 G/DL (12.0-16.0) L Hematocrit 27.6 % (37.0-47.0) L Mean Corpuscular Volume 91 FL (80-99) Mean Corpuscular Hemoglobin 29.4 PG (27.0-31.0) Mean Corpuscular Hemoglobin Concent 32.4 G/DL (32.0-36.0) Red Cell Distribution Width 14.7 % (11.6-14.8) Platelet Count 153 K/UL (150-450) Mean Platelet Volume 7.8 FL (6.5-10.1) Neutrophils (%) (Auto) 78.6 % (45.0-75.0) H Lymphocytes (%) (Auto) 13.3 % (20.0-45.0) L Monocytes (%) (Auto) 5.5 % (1.0-10.0) Eosinophils (%) (Auto) 2.0 % (0.0-3.0) Basophils (%) (Auto) 0.6 % (0.0-2.0) Sodium Level 136 MMOL/L (136-145) Potassium Level 2.6 MMOL/L (3.5-5.1) *L Chloride Level 99 MMOL/L (98-107) Carbon Dioxide Level 25 MMOL/L (21-32) Anion Gap 12 mmol/L (5-15) Blood Urea Nitrogen 3 mg/dL (7-18) L Creatinine 0.5 MG/DL (0.55-1.30) L Estimat Glomerular Filtration Rate mL/min (>60) Glucose Level 175 MG/DL (74-106) H Calcium Level 8.0 MG/DL (8.5-10.1) L Phosphorus Level 2.4 MG/DL (2.5-4.9) L Magnesium Level 1.3 MG/DL (1.8-2.4) L Total Bilirubin 0.8 MG/DL (0.2-1.0) Aspartate Amino Transf (AST/SGOT) 39 U/L (15-37) H Alanine Aminotransferase (ALT/SGPT) 36 U/L (12-78) Alkaline Phosphatase 273 U/L (46-116) H Total Protein 5.1 G/DL (6.4-8.2) L Albumin 1.6 G/DL (3.4-5.0) L Globulin 3.5 g/dL Albumin/Globulin Ratio 0.5 (1.0-2.7) L Assessment Post-op Diagnosis perforated prepyloric gastric ulcer Plan Problems: (1) Peritonitis Assessment & Plan: 84F with perforated abdominal viscus likely gastric perforation based on CT findings s/p imelda patch recovering labs improved exam improved advance diet d/c planning okay to ambulate thank you (2) Perforated abdominal viscus Mike Sheth Mar 17, 2019 12:25
--- NOTE | 2019-03-17 12:30 | Nephrology Progress Note ---
Assessment/Plan Problem List: (1) Perforated abdominal viscus (2) Hypokalemia (3) Hypomagnesemia (4) Diabetes mellitus (5) Anemia Assessment Post lap on 03/10 Low K Low Phos Low Mag Anemia DM h/o HTN Plan DC IV change all to orals Mag and K and Phos IV as needed Anemia claudio Keep BP and BS in check per orders DC planning Subjective ROS Limited/Unobtainable: No Constitutional: Reports: malaise Objective Objective Last 24 Hour Vital Signs Date Time Temp Pulse Resp B/P (MAP) Pulse Ox O2 Delivery O2 Flow Rate FiO2 03/17/19 12:00 99.7 82 20 134/63 (86) 98 03/17/19 10:01 Room Air 03/17/19 08:09 99.1 85 20 132/61 (84) 100 03/17/19 04:00 99.1 81 16 135/69 (91) 97 03/17/19 00:00 99.0 83 16 135/64 (87) 97 03/16/19 21:00 Room Air 03/16/19 20:00 99.6 90 16 139/63 (88) 95 03/16/19 20:00 95 Room Air 21 03/16/19 16:00 98.2 92 16 145/79 (101) 95 Intake and Output 03/16/19 03/17/19 19:00 07:00 Intake Total 730 ml Balance 730 ml Intake Oral 480 ml IV Total 250 ml # Voids 3 2 Laboratory Tests 03/17/19 05:15: White Blood Count 5.8, Red Blood Count 3.05L, Hemoglobin 9.0L, Hematocrit 27.6L , Mean Corpuscular Volume 91, Mean Corpuscular Hemoglobin 29.4, Mean Corpuscular Hemoglobin Concent 32.4, Red Cell Distribution Width 14.7, Platelet Count 153, Mean Platelet Volume 7.8, Neutrophils (%) (Auto) 78.6H, Lymphocytes ( %) (Auto) 13.3L, Monocytes (%) (Auto) 5.5, Eosinophils (%) (Auto) 2.0, Basophils (%) (Auto) 0.6, Sodium Level 136, Potassium Level 2.6*L, Chloride Level 99, Carbon Dioxide Level 25, Anion Gap 12, Blood Urea Nitrogen 3L, Creatinine 0.5L, Estimat Glomerular Filtration Rate , Glucose Level 175H, Calcium Level 8.0L, Phosphorus Level 2.4L, Magnesium Level 1.3L, Total Bilirubin 0.8, Aspartate Amino Transf (AST/SGOT) 39H, Alanine Aminotransferase ( ALT/SGPT) 36, Alkaline Phosphatase 273H, Total Protein 5.1L, Albumin 1.6L, Globulin 3.5, Albumin/Globulin Ratio 0.5L Height (Feet): 5 Height (Inches): 0.00 Weight (Pounds): 132 General Appearance: no apparent distress Objective no change El Clark MD Mar 17, 2019 12:30
--- NOTE | 2019-03-17 16:17 | Infectious Diseases Prog Note ---
Assessment/Plan Assessment/Plan Assessment: Perforated pre-pyloric gastric ulcer -s/p UGI series: Negative for postoperative leak -03/10 SP 03/10 SP Exploratory Laparotomy, Abdominal washout. Partial omentectomy. Shane patch for repair of perforated pre-pyloric ulcer. -03/10 CT abd/p: Free intraperitoneal gas. Etiology not completely certain, but gas within and extending from the anterior gastric antral wall is suspicious for a perforated gastric ulcer. Perforated descending colon diverticulitis also possible but deemed much less likely. Free intraperitoneal fluid, presumably related to the above. Fatty liver. Basilar pulmonary parenchymal groundglass opacities. This could indicate pulmonary edema, among other possibilities. Subcentimeter low-attenuation renal lesions, too small to characterize, most likely benign simple cyst. No further follow-up necessary. 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 Afebrile Mild leukocytosis, SP -u/a neg -CXR: Bilateral basilar atelectatic changes VDRF, post-op; extubated 03/12 DARRON, SP Dm2 HTN Plan: -Cont Fluconazole #5/7-10 for thrush -03/15 SP Zosyn #6 -03/10 SP IV Vancomycin #1, Ancef x1 -f/u cx -Monitor CBC/CMP, temperatures -Sx f/u -wound care per surgical team -aspiration precautions Thank you for this consultation. Will continue to follow along with you. Discussed with RN Subjective Allergies: Coded Allergies: No Known Allergies (Unverified , 03/10/19) Subjective afebrile no leukocytosis Objective Vital Signs Last 24 Hour Vital Signs Date Time Temp Pulse Resp B/P (MAP) Pulse Ox O2 Delivery O2 Flow Rate FiO2 03/17/19 12:00 99.7 82 20 134/63 (86) 98 03/17/19 10:01 Room Air 03/17/19 08:09 99.1 85 20 132/61 (84) 100 03/17/19 04:00 99.1 81 16 135/69 (91) 97 03/17/19 00:00 99.0 83 16 135/64 (87) 97 03/16/19 21:00 Room Air 03/16/19 20:00 99.6 90 16 139/63 (88) 95 03/16/19 20:00 95 Room Air 21 Height (Feet): 5 Height (Inches): 0.00 Weight (Pounds): 132 Objective General appearance: alert, cooperative, no distress, appears stated age Head: Normocephalic, without obvious abnormality, atraumatic Eyes: conjunctivae/corneas clear. PERRL, EOM's intact. Fundi benign Throat: Lips, mucosa, and tongue normal. Teeth and gums normal Neck: supple, symmetrical, trachea midline, no adenopathy, thyroid: not enlarged, symmetric, no tenderness/mass/nodules, no carotid bruit and no JVD Lungs: clear to auscultation bilaterally Heart: regular rate and rhythm, S1, S2 normal, no murmur, click, rub or gallop Abdomen: soft, peritonitis with tender. Bowel sounds normal. No masses, no organomegaly Extremities: extremities normal, atraumatic, no cyanosis or edema Pulses: 2+ and symmetric Skin: Skin color, texture, turgor normal. No rashes or lesions Neurologic: Grossly normal Laboratory Tests Test 03/17/19 05:15 White Blood Count 5.8 K/UL (4.8-10.8) Red Blood Count 3.05 M/UL (4.20-5.40) L Hemoglobin 9.0 G/DL (12.0-16.0) L Hematocrit 27.6 % (37.0-47.0) L Mean Corpuscular Volume 91 FL (80-99) Mean Corpuscular Hemoglobin 29.4 PG (27.0-31.0) Mean Corpuscular Hemoglobin Concent 32.4 G/DL (32.0-36.0) Red Cell Distribution Width 14.7 % (11.6-14.8) Platelet Count 153 K/UL (150-450) Mean Platelet Volume 7.8 FL (6.5-10.1) Neutrophils (%) (Auto) 78.6 % (45.0-75.0) H Lymphocytes (%) (Auto) 13.3 % (20.0-45.0) L Monocytes (%) (Auto) 5.5 % (1.0-10.0) Eosinophils (%) (Auto) 2.0 % (0.0-3.0) Basophils (%) (Auto) 0.6 % (0.0-2.0) Sodium Level 136 MMOL/L (136-145) Potassium Level 2.6 MMOL/L (3.5-5.1) *L Chloride Level 99 MMOL/L (98-107) Carbon Dioxide Level 25 MMOL/L (21-32) Anion Gap 12 mmol/L (5-15) Blood Urea Nitrogen 3 mg/dL (7-18) L Creatinine 0.5 MG/DL (0.55-1.30) L Estimat Glomerular Filtration Rate mL/min (>60) Glucose Level 175 MG/DL (74-106) H Calcium Level 8.0 MG/DL (8.5-10.1) L Phosphorus Level 2.4 MG/DL (2.5-4.9) L Magnesium Level 1.3 MG/DL (1.8-2.4) L Total Bilirubin 0.8 MG/DL (0.2-1.0) Aspartate Amino Transf (AST/SGOT) 39 U/L (15-37) H Alanine Aminotransferase (ALT/SGPT) 36 U/L (12-78) Alkaline Phosphatase 273 U/L (46-116) H Total Protein 5.1 G/DL (6.4-8.2) L Albumin 1.6 G/DL (3.4-5.0) L Globulin 3.5 g/dL Albumin/Globulin Ratio 0.5 (1.0-2.7) L Current Medications Medications (Trade) Dose Ordered Sig/Shantelle Route PRN Reason Start Time Stop Time Status Last Admin Dose Admin Acetaminophen (Tylenol) 650 mg Q4H PRN RECTAL FEVER (T>100.5F) 03/13/19 18:30 04/09/19 18:29 Fluconazole (Diflucan) 100 mg Q24H ORAL 03/16/19 20:00 03/23/19 19:59 03/16/19 20:22 Heparin Sodium (Porcine) (Heparin 5000 units/ml) 5,000 units EVERY 12 HOURS SUBQ 03/13/19 21:00 04/09/19 20:59 03/17/19 08:19 Hydroxyzine HCl (Atarax) 25 mg Q6H PRN ORAL Itching 03/16/19 13:00 04/15/19 12:59 Magnesium Sulfate 100 ml @ 100 mls/hr Q1H IVPB 03/17/19 13:00 03/17/19 16:59 03/17/19 14:27 Ondansetron HCl (Zofran) 4 mg Q6H PRN IVP Nausea & Vomiting 03/13/19 19:15 04/09/19 13:14 Pantoprazole (Protonix) 40 mg EVERY 12 HOURS ORAL 03/16/19 21:00 04/15/19 20:59 03/17/19 08:16 Potassium Phosphate 30 mm/ Sodium Chloride 285 ml @ 47.5 mls/hr ONCE ONCE IV 03/17/19 11:30 03/17/19 17:29 03/17/19 11:21 Potassium Chloride (K-Dur) 40 meq TID ORAL 03/17/19 13:00 03/17/19 18:01 03/17/19 14:16 Tramadol HCl (Ultram) 25 mg Q6H PRN ORAL pain over 4 03/16/19 13:00 03/23/19 12:59 03/17/19 09:50 Janette Stallworth M.D. Mar 17, 2019 16:17
--- NOTE | 2019-03-17 16:52 | Internal Med Progress Note ---
Subjective Date of Service: Mar 17, 2019 Physician Name Zen Paige Attending Physician Marcos Silva MD Current Medications Medications (Trade) Dose Ordered Sig/Shantelle Route PRN Reason Start Time Stop Time Status Last Admin Dose Admin Acetaminophen (Tylenol) 650 mg Q4H PRN RECTAL FEVER (T>100.5F) 03/13/19 18:30 04/09/19 18:29 Fluconazole (Diflucan) 100 mg Q24H ORAL 03/16/19 20:00 03/23/19 19:59 03/16/19 20:22 Heparin Sodium (Porcine) (Heparin 5000 units/ml) 5,000 units EVERY 12 HOURS SUBQ 03/13/19 21:00 04/09/19 20:59 03/17/19 08:19 Hydroxyzine HCl (Atarax) 25 mg Q6H PRN ORAL Itching 03/16/19 13:00 04/15/19 12:59 Magnesium Sulfate 100 ml @ 100 mls/hr Q1H IVPB 03/17/19 13:00 03/17/19 16:59 03/17/19 16:22 Ondansetron HCl (Zofran) 4 mg Q6H PRN IVP Nausea & Vomiting 03/13/19 19:15 04/09/19 13:14 Pantoprazole (Protonix) 40 mg EVERY 12 HOURS ORAL 03/16/19 21:00 04/15/19 20:59 03/17/19 08:16 Potassium Phosphate 30 mm/ Sodium Chloride 285 ml @ 47.5 mls/hr ONCE ONCE IV 03/17/19 11:30 03/17/19 17:29 03/17/19 11:21 Potassium Chloride (K-Dur) 40 meq TID ORAL 03/17/19 13:00 03/17/19 18:01 03/17/19 14:16 Tramadol HCl (Ultram) 25 mg Q6H PRN ORAL pain over 4 03/16/19 13:00 03/23/19 12:59 03/17/19 09:50 Allergies: Coded Allergies: No Known Allergies (Unverified , 03/10/19) ROS Limited/Unobtainable: No Constitutional: Reports: no symptoms HEENT: Reports: no symptoms Cardiovascular: Reports: no symptoms Respiratory: Reports: no symptoms Gastrointestinal/Abdominal: Reports: no symptoms Genitourinary: Reports: no symptoms Neurologic/Psychiatric: Reports: no symptoms Subjective 84 YO F admitted with abdominal pain. S/P exploratory laparotomy 03/10/19. Cover for Int Med-Dr Silva. Objective Last Vital Signs Date Time Temp Pulse Resp B/P (MAP) Pulse Ox O2 Delivery O2 Flow Rate FiO2 03/17/19 16:37 98.4 86 18 125/66 (85) 97 03/17/19 10:01 Room Air 03/16/19 20:00 21 03/15/19 09:00 2.0 Laboratory Tests Test 03/17/19 05:15 White Blood Count 5.8 K/UL (4.8-10.8) Red Blood Count 3.05 M/UL (4.20-5.40) L Hemoglobin 9.0 G/DL (12.0-16.0) L Hematocrit 27.6 % (37.0-47.0) L Mean Corpuscular Volume 91 FL (80-99) Mean Corpuscular Hemoglobin 29.4 PG (27.0-31.0) Mean Corpuscular Hemoglobin Concent 32.4 G/DL (32.0-36.0) Red Cell Distribution Width 14.7 % (11.6-14.8) Platelet Count 153 K/UL (150-450) Mean Platelet Volume 7.8 FL (6.5-10.1) Neutrophils (%) (Auto) 78.6 % (45.0-75.0) H Lymphocytes (%) (Auto) 13.3 % (20.0-45.0) L Monocytes (%) (Auto) 5.5 % (1.0-10.0) Eosinophils (%) (Auto) 2.0 % (0.0-3.0) Basophils (%) (Auto) 0.6 % (0.0-2.0) Sodium Level 136 MMOL/L (136-145) Potassium Level 2.6 MMOL/L (3.5-5.1) *L Chloride Level 99 MMOL/L (98-107) Carbon Dioxide Level 25 MMOL/L (21-32) Anion Gap 12 mmol/L (5-15) Blood Urea Nitrogen 3 mg/dL (7-18) L Creatinine 0.5 MG/DL (0.55-1.30) L Estimat Glomerular Filtration Rate mL/min (>60) Glucose Level 175 MG/DL (74-106) H Calcium Level 8.0 MG/DL (8.5-10.1) L Phosphorus Level 2.4 MG/DL (2.5-4.9) L Magnesium Level 1.3 MG/DL (1.8-2.4) L Total Bilirubin 0.8 MG/DL (0.2-1.0) Aspartate Amino Transf (AST/SGOT) 39 U/L (15-37) H Alanine Aminotransferase (ALT/SGPT) 36 U/L (12-78) Alkaline Phosphatase 273 U/L (46-116) H Total Protein 5.1 G/DL (6.4-8.2) L Albumin 1.6 G/DL (3.4-5.0) L Globulin 3.5 g/dL Albumin/Globulin Ratio 0.5 (1.0-2.7) L Intake and Output 03/16/19 03/17/19 19:00 07:00 Intake Total 730 ml Balance 730 ml Intake Oral 480 ml IV Total 250 ml # Voids 3 2 Objective PHYSICAL EXAMINATION: GENERAL: The patient is a well developed, well nourished female who is intubated and sedated. HEENT: Eyes, pupils equal and responsive to light and accommodation. Extraocular movements are intact. NECK: Supple without lymphadenopathy. CHEST: Nasc canula; Few diffuse wheezes bilaterally. Otherwise, without wheezes or rales. CARDIOVASCULAR: Regular rhythm rate. S1-S2 are normal without murmurs, rubs, or gallops. ABDOMEN: NGT; Soft, nontender with decreased bowel sounds. No evidence of hepatosplenomegaly. no rebound or guarding noted. EXTREMITIES: Negative for clubbing, cyanosis, edema. RECTAL/GENITAL: Not performed. NEUROLOGIC: Cranial nerves II through XII are grossly intact without focal deficits. Assessment/Plan Assessment/Plan ASSESSMENT: This is an 84-year-old female. 1. Perforated gastric ulcer 2. Abdominal pain. 3. Nausea with vomiting. 4. Diabetes type 2. 5. Hypertension. TREATMENT: 1. Perforated gastric ulcer. A General Surgery consultation has been obtained with Dr. Sheth. S/P exploratory laparotomy 03/10/19=perforated gastric ulcer. Tolerating regular diet; NGT discontinued per surgery 2. Diabetes type 2. NovoLog sliding scale has been instituted. 3. Hypertension. The patient is currently hypotensive. 4. Respiratory failure. S/P extubation 03/12/19. A Pulmonary consultation has been obtained with Dr. Bibiana Pennington. 5. Med/surg 6. Discharge planning Zen Paige MD Mar 17, 2019 16:52
--- NOTE | 2019-03-17 18:14 | NUR ---
NURSE NOTES: Patient complain of incision pain,pain medication given as ordered. Midline incision with anna remains intact.
--- NOTE | 2019-03-17 19:30 | NUR ---
HAND-OFF: Report given to [place] MOON.
--- NOTE | 2019-03-17 19:58 | NUR ---
NURSE NOTES: Received patient in bed, awake, alert, oriented, [place] Citizen speaking only, no distress noted, patient is able to tolerate small portioned meals, call light is within reach, bed is lowered, locked and alarm is on. Will continue to monitor for comfort and safety.
[2019-03-17] MEDS: Fluconazole 100mg tab ORAL SCH (20:49)
[2019-03-18 04:00] VITALS: BP 130/59
[2019-03-18 06:12] LABS: BASOPHILS % (AUTO) 0.7 % (0.0-2.0); EOSINOPHILS % (AUTO) 1.2 % (0.0-3.0); HEMATOCRIT 28.4 % (37.0-47.0); HEMOGLOBIN 9.1 G/DL (12.0-16.0); LYMPHOCYTES % (AUTO) 12.4 % (20.0-45.0); MEAN CORPUSCULAR VOLUME 91 FL (80-99); MONOCYTES % (AUTO) 6.3 % (1.0-10.0); NEUTROPHILS % (AUTO) 79.3 % (45.0-75.0); PLATELET COUNT 158 K/UL (150-450); RED BLOOD COUNT 3.13 M/UL (4.20-5.40); RED CELL DISTRIBUTION WIDTH 15.2 % (11.6-14.8); WHITE BLOOD COUNT 5.8 K/UL (4.8-10.8)
[2019-03-18 06:51] LABS: ALANINE AMINOTRANSFERASE 39 U/L (12-78); ALBUMIN 1.8 G/DL (3.4-5.0); ALBUMIN/GLOBULIN RATIO 0.7 (1.0-2.7); ALKALINE PHOSPHATASE 280 U/L (46-116); ANION GAP 9 mmol/L (5-15); ASPARTATE AMINO TRANSFERASE 47 U/L (15-37); BILIRUBIN,TOTAL 0.7 MG/DL (0.2-1.0); BLOOD UREA NITROGEN 2 mg/dL (7-18); CALCIUM 7.8 MG/DL (8.5-10.1); CARBON DIOXIDE 23 MMOL/L (21-32); CHLORIDE 99 MMOL/L (98-107); CREATININE 0.3 MG/DL (0.55-1.30); PHOSPHORUS 2.1 MG/DL (2.5-4.9); POTASSIUM 5.5 MMOL/L (3.5-5.1); SODIUM 131 MMOL/L (136-145)
--- NOTE | 2019-03-18 06:55 | NUR ---
NURSE NOTES: received results from the lab, potassium is 5.5, will endorse results to the am shift nurse.
--- NOTE | 2019-03-18 07:00 | NUR ---
HAND-OFF: Report given to Amanda MOON.
--- NOTE | 2019-03-18 07:42 | NUR ---
NURSE NOTES: Received report from [place] MOON. Patient is asleep during rounds, no acute distress noted, RR even and unlabored. Fall precautions maintained. Side rails upx3, bed low and locked, call light in reach, bed alarm armed. Will continue to monitor.
[2019-03-18 08:00] VITALS: BP 126/68
--- NOTE | 2019-03-18 09:34 | NUR ---
NURSE NOTES: Called Dr. Clark and left voicemail with MD reporting patient's potassium, sodium, and phos levels this morning. Awaiting call back with further orders.
[2019-03-18] MEDS: Heparin 5000 units/ml inj SUBQ SCH ×2 (09:39→20:27)
--- NOTE | 2019-03-18 10:34 | NUR ---
NURSE NOTES: Informed Dr. Sheth that patient is having diarrhea, MD gave order to collect for c-diff, also gave order to add glucerna's to patient diet, orders entered. Patient also seen by Dr. Amber MD is aware of patient's lab results from this morning, no new orders received at this time.
--- NOTE | 2019-03-18 10:43 | Surgery Progress Note ---
Surgery Progress Note Subjective Procedure Performed ex lap with imelda patch, washout, omentectomy Symptoms: improved, tolerating diet, voiding well, passing flatus, BM - diarrhea , pain decreased Objective Last 24 Hour Vital Signs Date Time Temp Pulse Resp B/P (MAP) Pulse Ox O2 Delivery O2 Flow Rate FiO2 03/18/19 09:00 Room Air 03/18/19 08:00 98.0 89 16 126/68 (87) 94 03/18/19 04:00 98.6 85 18 130/59 (82) 03/17/19 23:47 98.4 81 18 131/58 (82) 03/17/19 21:14 Room Air 03/17/19 20:00 98.5 87 18 128/58 (81) 03/17/19 16:37 98.4 86 18 125/66 (85) 97 03/17/19 12:00 99.7 82 20 134/63 (86) 98 I&O Intake and Output 03/17/19 03/18/19 18:59 06:59 Intake Total 200 ml Output Total 50 ml 700 ml Balance 150 ml -700 ml Intake Oral 200 ml Output Urine Total 50 ml 700 ml # Voids 3 # Bowel Movements 1 Dressing: dry Wound: clean Drains: none Cardiovascular: RSR Respiratory: clear Abdomen: soft, flat, non-tender, present bowel sounds, non-distended Extremities: no edema, no tenderness, no cyanosis Laboratory Tests Test 03/18/19 04:40 White Blood Count 5.8 K/UL (4.8-10.8) Red Blood Count 3.13 M/UL (4.20-5.40) L Hemoglobin 9.1 G/DL (12.0-16.0) L Hematocrit 28.4 % (37.0-47.0) L Mean Corpuscular Volume 91 FL (80-99) Mean Corpuscular Hemoglobin 29.0 PG (27.0-31.0) Mean Corpuscular Hemoglobin Concent 31.9 G/DL (32.0-36.0) L Red Cell Distribution Width 15.2 % (11.6-14.8) H Platelet Count 158 K/UL (150-450) Mean Platelet Volume 7.4 FL (6.5-10.1) Neutrophils (%) (Auto) 79.3 % (45.0-75.0) H Lymphocytes (%) (Auto) 12.4 % (20.0-45.0) L Monocytes (%) (Auto) 6.3 % (1.0-10.0) Eosinophils (%) (Auto) 1.2 % (0.0-3.0) Basophils (%) (Auto) 0.7 % (0.0-2.0) Sodium Level 131 MMOL/L (136-145) L Potassium Level 5.5 MMOL/L (3.5-5.1) #H Chloride Level 99 MMOL/L (98-107) Carbon Dioxide Level 23 MMOL/L (21-32) Anion Gap 9 mmol/L (5-15) Blood Urea Nitrogen 2 mg/dL (7-18) L Creatinine 0.3 MG/DL (0.55-1.30) L Estimat Glomerular Filtration Rate mL/min (>60) Glucose Level 184 MG/DL (74-106) H Calcium Level 7.8 MG/DL (8.5-10.1) L Phosphorus Level 2.1 MG/DL (2.5-4.9) L Magnesium Level 1.8 MG/DL (1.8-2.4) Total Bilirubin 0.7 MG/DL (0.2-1.0) Aspartate Amino Transf (AST/SGOT) 47 U/L (15-37) H Alanine Aminotransferase (ALT/SGPT) 39 U/L (12-78) Alkaline Phosphatase 280 U/L (46-116) H Total Protein 4.4 G/DL (6.4-8.2) L Albumin 1.8 G/DL (3.4-5.0) L Globulin 2.6 g/dL Albumin/Globulin Ratio 0.7 (1.0-2.7) L Assessment Post-op Diagnosis perforated prepyloric gastric ulcer Plan Problems: (1) Peritonitis Assessment & Plan: 84F with perforated abdominal viscus likely gastric perforation based on CT findings s/p imelda patch recovering labs improved exam improved advance diet anna removed c diff d/c planning okay to ambulate thank you (2) Perforated abdominal viscus Mike Sheth Mar 18, 2019 10:43
--- NOTE | 2019-03-18 11:55 | NUR ---
RD ASSESSMENT & RECOMMENDATIONS SEE CARE ACTIVITY FOR COMPLETE ASSESSMENT DAILY ESTIMATED NEEDS: Needs based on Surgery, DM / 53.6kg 25-35 kcals/kg 0830-7855 total kcals 1-2 g protein/kg 54-107 g total protein 25-30 mL/kg 2663-3503 total fluid mLs NUTRITION DIAGNOSIS: * Altered GI function R/T perforated gastric ulcer as evidenced by s/p ex lap, abdominal washout, partial omentectomy, imelda patch for repair of perforated pre-pyloric ulcer, diet now advanced from clears to Regular soft easy chew. (UPDATED) * Altered nutrition related lab values R/T diabetes, clinical condition as evidenced by elev BGs (255 353), A1C 10.2, urine glucose 4+, low phos and mg, elev triglycerides (300). CURRENT DIET: Regular soft easy chew + Glucerna PO DIET RECOMMENDATIONS-->>> BLAND DIET w/ Ensure Clear TID ADDITIONAL RECOMMENDATIONS: * Consider NISS/ h/o DM, elev FBGs. Pt would benefit from hypoglycemics * Calibrated bedscale wt for accurate CBW Bed wt: 121# EMR wt: 132# * Monitor lytes w/ diarrhea
[2019-03-18 12:00] VITALS: BP 130/60
--- NOTE | 2019-03-18 12:41 | Nephrology Progress Note ---
Assessment/Plan Problem List: (1) Perforated abdominal viscus (2) Hypokalemia (3) Hypomagnesemia (4) Diabetes mellitus (5) Anemia Assessment Post lap on 03/10 Low K Low Phos Low Mag Anemia DM h/o HTN Plan high K likely hemolysis DC IV change all to orals Mag and K and Phos IV as needed Anemia claudio Keep BP and BS in check per orders DC planning Subjective ROS Limited/Unobtainable: No Constitutional: Reports: malaise Objective Objective Last 24 Hour Vital Signs Date Time Temp Pulse Resp B/P (MAP) Pulse Ox O2 Delivery O2 Flow Rate FiO2 03/18/19 09:00 Room Air 03/18/19 08:00 98.0 89 16 126/68 (87) 94 03/18/19 04:00 98.6 85 18 130/59 (82) 03/17/19 23:47 98.4 81 18 131/58 (82) 03/17/19 21:14 Room Air 03/17/19 20:00 98.5 87 18 128/58 (81) 03/17/19 16:37 98.4 86 18 125/66 (85) 97 Intake and Output 03/17/19 03/18/19 19:00 07:00 Intake Total 200 ml Output Total 50 ml 700 ml Balance 150 ml -700 ml Intake Oral 200 ml Output Urine Total 50 ml 700 ml # Voids 3 # Bowel Movements 1 Laboratory Tests 03/18/19 04:40: White Blood Count 5.8, Red Blood Count 3.13L, Hemoglobin 9.1L, Hematocrit 28.4L , Mean Corpuscular Volume 91, Mean Corpuscular Hemoglobin 29.0, Mean Corpuscular Hemoglobin Concent 31.9L, Red Cell Distribution Width 15.2H, Platelet Count 158, Mean Platelet Volume 7.4, Neutrophils (%) (Auto) 79.3H, Lymphocytes (%) (Auto) 12.4L, Monocytes (%) (Auto) 6.3, Eosinophils (%) (Auto) 1.2, Basophils (%) (Auto) 0.7, Sodium Level 131L, Potassium Level 5.5#H, Chloride Level 99, Carbon Dioxide Level 23, Anion Gap 9, Blood Urea Nitrogen 2L , Creatinine 0.3L, Estimat Glomerular Filtration Rate , Glucose Level 184H, Calcium Level 7.8L, Phosphorus Level 2.1L, Magnesium Level 1.8, Total Bilirubin 0.7, Aspartate Amino Transf (AST/SGOT) 47H, Alanine Aminotransferase (ALT/SGPT) 39, Alkaline Phosphatase 280H, Total Protein 4.4L, Albumin 1.8L, Globulin 2.6, Albumin/Globulin Ratio 0.7L Height (Feet): 5 Height (Inches): 0.00 Weight (Pounds): 132 General Appearance: no apparent distress Objective no change El Clark MD Mar 18, 2019 12:41
--- NOTE | 2019-03-18 13:32 | NUR ---
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 98.0 HR 89 RR 16 B/P 131/58 RA 98% IS: DIFLUCAN PO PROTONIX PO ZOFRAN IV PRN MED/SURG STATUS
--- NOTE | 2019-03-18 13:41 | NUR ---
P.T Weekly Progress Notes: Pt seen for 1 wk of P.T session. Tx consisted of thera ex's, ADL/functional mobility training and Gait training using the FWW. Pt continue to be limited by abdominal discomfort and generalized weakness however progressing well in therapy. Pt currently requires SBA/CGA X 1 for bed mobilities, CGA x 1 for transfers and ambulates average distance of 100-130 ft using the FWW with CGA X 1. Pt. is highly motivated to get better and return to PLOF and should continue to benefit from skilled P.T services. Will continue with POC with progression of activities as angel. Recommend either Home P.T or SNF at [facility] for further rehab intervention to achieve full mobility independence and safety.
--- NOTE | 2019-03-18 14:31 | Infectious Diseases Prog Note ---
Assessment/Plan Assessment/Plan Assessment: Perforated pre-pyloric gastric ulcer -s/p UGI series: Negative for postoperative leak -03/10 SP 03/10 SP Exploratory Laparotomy, Abdominal washout. Partial omentectomy. Shane patch for repair of perforated pre-pyloric ulcer. -03/10 CT abd/p: Free intraperitoneal gas. Etiology not completely certain, but gas within and extending from the anterior gastric antral wall is suspicious for a perforated gastric ulcer. Perforated descending colon diverticulitis also possible but deemed much less likely. Free intraperitoneal fluid, presumably related to the above. Fatty liver. Basilar pulmonary parenchymal groundglass opacities. This could indicate pulmonary edema, among other possibilities. Subcentimeter low-attenuation renal lesions, too small to characterize, most likely benign simple cyst. No further follow-up necessary. 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 Afebrile Mild leukocytosis, SP -u/a neg -CXR: Bilateral basilar atelectatic changes VDRF, post-op; extubated 03/12 DARRON, SP Dm2 HTN Plan: -Cont Fluconazole #6/7-10 for thrush -03/15 SP Zosyn #6 -03/10 SP IV Vancomycin #1, Ancef x1 -f/u cx -Monitor CBC/CMP, temperatures -Sx f/u -wound care per surgical team -aspiration precautions Thank you for this consultation. Will continue to follow along with you. Discussed with RN Subjective Allergies: Coded Allergies: No Known Allergies (Unverified , 03/10/19) Subjective afebrile no leukocytosis Objective Vital Signs Last 24 Hour Vital Signs Date Time Temp Pulse Resp B/P (MAP) Pulse Ox O2 Delivery O2 Flow Rate FiO2 03/18/19 12:00 99.7 86 18 130/60 (83) 94 03/18/19 09:00 Room Air 03/18/19 08:00 98.0 89 16 126/68 (87) 94 03/18/19 04:00 98.6 85 18 130/59 (82) 03/17/19 23:47 98.4 81 18 131/58 (82) 03/17/19 21:14 Room Air 03/17/19 20:00 98.5 87 18 128/58 (81) 03/17/19 16:37 98.4 86 18 125/66 (85) 97 Height (Feet): 5 Height (Inches): 0.00 Weight (Pounds): 132 Objective General appearance: alert, cooperative, no distress, appears stated age Head: Normocephalic, without obvious abnormality, atraumatic Eyes: conjunctivae/corneas clear. PERRL, EOM's intact. Fundi benign Throat: Lips, mucosa, and tongue normal. Teeth and gums normal Neck: supple, symmetrical, trachea midline, no adenopathy, thyroid: not enlarged, symmetric, no tenderness/mass/nodules, no carotid bruit and no JVD Lungs: clear to auscultation bilaterally Heart: regular rate and rhythm, S1, S2 normal, no murmur, click, rub or gallop Abdomen: soft, peritonitis with tender. Bowel sounds normal. No masses, no organomegaly Extremities: extremities normal, atraumatic, no cyanosis or edema Pulses: 2+ and symmetric Skin: Skin color, texture, turgor normal. No rashes or lesions Neurologic: Grossly normal Laboratory Tests Test 03/18/19 04:40 White Blood Count 5.8 K/UL (4.8-10.8) Red Blood Count 3.13 M/UL (4.20-5.40) L Hemoglobin 9.1 G/DL (12.0-16.0) L Hematocrit 28.4 % (37.0-47.0) L Mean Corpuscular Volume 91 FL (80-99) Mean Corpuscular Hemoglobin 29.0 PG (27.0-31.0) Mean Corpuscular Hemoglobin Concent 31.9 G/DL (32.0-36.0) L Red Cell Distribution Width 15.2 % (11.6-14.8) H Platelet Count 158 K/UL (150-450) Mean Platelet Volume 7.4 FL (6.5-10.1) Neutrophils (%) (Auto) 79.3 % (45.0-75.0) H Lymphocytes (%) (Auto) 12.4 % (20.0-45.0) L Monocytes (%) (Auto) 6.3 % (1.0-10.0) Eosinophils (%) (Auto) 1.2 % (0.0-3.0) Basophils (%) (Auto) 0.7 % (0.0-2.0) Sodium Level 131 MMOL/L (136-145) L Potassium Level 5.5 MMOL/L (3.5-5.1) #H Chloride Level 99 MMOL/L (98-107) Carbon Dioxide Level 23 MMOL/L (21-32) Anion Gap 9 mmol/L (5-15) Blood Urea Nitrogen 2 mg/dL (7-18) L Creatinine 0.3 MG/DL (0.55-1.30) L Estimat Glomerular Filtration Rate mL/min (>60) Glucose Level 184 MG/DL (74-106) H Calcium Level 7.8 MG/DL (8.5-10.1) L Phosphorus Level 2.1 MG/DL (2.5-4.9) L Magnesium Level 1.8 MG/DL (1.8-2.4) Total Bilirubin 0.7 MG/DL (0.2-1.0) Aspartate Amino Transf (AST/SGOT) 47 U/L (15-37) H Alanine Aminotransferase (ALT/SGPT) 39 U/L (12-78) Alkaline Phosphatase 280 U/L (46-116) H Total Protein 4.4 G/DL (6.4-8.2) L Albumin 1.8 G/DL (3.4-5.0) L Globulin 2.6 g/dL Albumin/Globulin Ratio 0.7 (1.0-2.7) L Current Medications Medications (Trade) Dose Ordered Sig/Shantelle Route PRN Reason Start Time Stop Time Status Last Admin Dose Admin Acetaminophen (Tylenol) 650 mg Q4H PRN RECTAL FEVER (T>100.5F) 03/13/19 18:30 04/09/19 18:29 Fluconazole (Diflucan) 100 mg Q24H ORAL 03/16/19 20:00 03/23/19 19:59 03/17/19 20:49 Heparin Sodium (Porcine) (Heparin 5000 units/ml) 5,000 units EVERY 12 HOURS SUBQ 03/13/19 21:00 04/09/19 20:59 03/18/19 09:39 Hydroxyzine HCl (Atarax) 25 mg Q6H PRN ORAL Itching 03/16/19 13:00 04/15/19 12:59 Ondansetron HCl (Zofran) 4 mg Q6H PRN IVP Nausea & Vomiting 03/13/19 19:15 04/09/19 13:14 Pantoprazole (Protonix) 40 mg EVERY 12 HOURS ORAL 03/16/19 21:00 04/15/19 20:59 03/18/19 09:38 Tramadol HCl (Ultram) 25 mg Q6H PRN ORAL pain over 4 03/16/19 13:00 03/23/19 12:59 03/17/19 18:10 Janette Stallworth M.D. Mar 18, 2019 14:31
[2019-03-18 16:00] VITALS: BP 129/70
--- NOTE | 2019-03-18 16:58 | Internal Med Progress Note ---
Subjective Physician Name Marcos Silva Attending Physician Marcos Silva MD Current Medications Medications (Trade) Dose Ordered Sig/Shantelle Route PRN Reason Start Time Stop Time Status Last Admin Dose Admin Acetaminophen (Tylenol) 650 mg Q4H PRN RECTAL FEVER (T>100.5F) 03/13/19 18:30 04/09/19 18:29 Fluconazole (Diflucan) 100 mg Q24H ORAL 03/16/19 20:00 03/23/19 19:59 03/17/19 20:49 Heparin Sodium (Porcine) (Heparin 5000 units/ml) 5,000 units EVERY 12 HOURS SUBQ 03/13/19 21:00 04/09/19 20:59 03/18/19 09:39 Hydroxyzine HCl (Atarax) 25 mg Q6H PRN ORAL Itching 03/16/19 13:00 04/15/19 12:59 Ondansetron HCl (Zofran) 4 mg Q6H PRN IVP Nausea & Vomiting 03/13/19 19:15 04/09/19 13:14 Pantoprazole (Protonix) 40 mg EVERY 12 HOURS ORAL 03/16/19 21:00 04/15/19 20:59 03/18/19 09:38 Tramadol HCl (Ultram) 25 mg Q6H PRN ORAL pain over 4 03/16/19 13:00 03/23/19 12:59 03/17/19 18:10 Allergies: Coded Allergies: No Known Allergies (Unverified , 03/10/19) Subjective awake, alert, responsive, + Diarrhea, K: 5.5 Objective Last Vital Signs Date Time Temp Pulse Resp B/P (MAP) Pulse Ox O2 Delivery O2 Flow Rate FiO2 03/18/19 16:00 99.0 80 20 129/70 (89) 95 03/18/19 09:00 Room Air 03/16/19 20:00 21 03/15/19 09:00 2.0 Laboratory Tests Test 03/18/19 04:40 White Blood Count 5.8 K/UL (4.8-10.8) Red Blood Count 3.13 M/UL (4.20-5.40) L Hemoglobin 9.1 G/DL (12.0-16.0) L Hematocrit 28.4 % (37.0-47.0) L Mean Corpuscular Volume 91 FL (80-99) Mean Corpuscular Hemoglobin 29.0 PG (27.0-31.0) Mean Corpuscular Hemoglobin Concent 31.9 G/DL (32.0-36.0) L Red Cell Distribution Width 15.2 % (11.6-14.8) H Platelet Count 158 K/UL (150-450) Mean Platelet Volume 7.4 FL (6.5-10.1) Neutrophils (%) (Auto) 79.3 % (45.0-75.0) H Lymphocytes (%) (Auto) 12.4 % (20.0-45.0) L Monocytes (%) (Auto) 6.3 % (1.0-10.0) Eosinophils (%) (Auto) 1.2 % (0.0-3.0) Basophils (%) (Auto) 0.7 % (0.0-2.0) Sodium Level 131 MMOL/L (136-145) L Potassium Level 5.5 MMOL/L (3.5-5.1) #H Chloride Level 99 MMOL/L (98-107) Carbon Dioxide Level 23 MMOL/L (21-32) Anion Gap 9 mmol/L (5-15) Blood Urea Nitrogen 2 mg/dL (7-18) L Creatinine 0.3 MG/DL (0.55-1.30) L Estimat Glomerular Filtration Rate mL/min (>60) Glucose Level 184 MG/DL (74-106) H Calcium Level 7.8 MG/DL (8.5-10.1) L Phosphorus Level 2.1 MG/DL (2.5-4.9) L Magnesium Level 1.8 MG/DL (1.8-2.4) Total Bilirubin 0.7 MG/DL (0.2-1.0) Aspartate Amino Transf (AST/SGOT) 47 U/L (15-37) H Alanine Aminotransferase (ALT/SGPT) 39 U/L (12-78) Alkaline Phosphatase 280 U/L (46-116) H Total Protein 4.4 G/DL (6.4-8.2) L Albumin 1.8 G/DL (3.4-5.0) L Globulin 2.6 g/dL Albumin/Globulin Ratio 0.7 (1.0-2.7) L Intake and Output 03/17/19 03/18/19 19:00 07:00 Intake Total 200 ml Output Total 50 ml 700 ml Balance 150 ml -700 ml Intake Oral 200 ml Output Urine Total 50 ml 700 ml # Voids 3 # Bowel Movements 1 Objective General: No acute distress, awake and alert HEENT: NCAT, sclera anicteric, PERRL, EOMI. Neck: Supple, no significant jugular venous distention, Lungs: clear to auscultation bilaterally, no Wheeze or Rales. Heart: Regular rate and rhythm, normal S1/S2, no murmur Abdomen: soft, not tender, Not distended. midline surgical incision with intact dressing. Extremities: No Cyanosis , clubbing or edema. Neuro: A&O x 3, Able to move all extremities Skin: warm, no rash. Assessment/Plan Assessment/Plan ASSESSMENT: This is an 84-year-old female. 1. Perforated abdominal viscus S/P Exploratory laparotomy, Partial omentectomy, and Shane patch for repair of perforated pre-pyloric ulcer (03/10/2019). 2. Acute respiratory Failure. 3. Nausea with vomiting. 4. Diabetes type 2. 5. Hypertension. TREATMENT: 1. Perforated abdominal viscus. A General Surgery consultation has been obtained with Dr. Sheth. S/P Exploratory laparotomy, Partial omentectomy, and Shane patch for repair of perforated pre-pyloric ulcer (03/10/2019). 2. Diabetes type 2. NovoLog sliding scale has been instituted. 3. Hypertension. The patient is currently hypotensive. 4. Respiratory failure. The patient is currently intubated in the intensive care unit. A Pulmonary consultation has been obtained with Dr. Bibiana Pennington. Abx: Diflucan/ DC planning in 1 -2 days. Marcos Silva MD Mar 18, 2019 16:58
--- NOTE | 2019-03-18 19:38 | NUR ---
HAND-OFF: Report given to Ese MOON. Patient is in stable condition.
--- NOTE | 2019-03-18 19:40 | NUR ---
NURSE NOTES: Received report from SARAI Patel. Rounds done, patient asleep, respiration unlabored. Family at bedside.
[2019-03-18 20:00] VITALS: BP 128/62
[2019-03-18] MEDS: Fluconazole 100mg tab ORAL SCH (20:26)
--- NOTE | 2019-03-18 20:30 | NUR ---
NURSE NOTES: Patient awake, alert, oriented to person and situation, forgetful of time and place. Family states this is her usual. Denies pain, abdominal incision with steri strips, clean, dry and intact. IV saline lock intact and patent on R hand. IV saline lock on L wrist discontinued.
--- NOTE | 2019-03-18 20:41 | NUR ---
NURSE NOTES: Patient is awake, given routine, medication. Bed in low and locked position. Provided safe environment. Family is at bedside. Call light is at bedside. Will continue plan of care.
[2019-03-19] VITALS: BP 143/67
[2019-03-19 04:00] VITALS: BP 137/62
[2019-03-19 07:27] LABS: BASOPHILS % (AUTO) 0.7 % (0.0-2.0); EOSINOPHILS % (AUTO) 0.8 % (0.0-3.0); HEMOGLOBIN 9.8 G/DL (12.0-16.0); MEAN CORPUSCULAR VOLUME 90 FL (80-99); MONOCYTES % (AUTO) 6.3 % (1.0-10.0); NEUTROPHILS % (AUTO) 81.3 % (45.0-75.0); PLATELET COUNT 198 K/UL (150-450); RED BLOOD COUNT 3.33 M/UL (4.20-5.40); RED CELL DISTRIBUTION WIDTH 15.4 % (11.6-14.8)
[2019-03-19 07:29] LABS: ALANINE AMINOTRANSFERASE 29 U/L (12-78); ALBUMIN 1.8 G/DL (3.4-5.0); ALBUMIN/GLOBULIN RATIO 0.5 (1.0-2.7); ALKALINE PHOSPHATASE 238 U/L (46-116); ANION GAP 11 mmol/L (5-15); ASPARTATE AMINO TRANSFERASE 29 U/L (15-37); BILIRUBIN,TOTAL 0.6 MG/DL (0.2-1.0); BLOOD UREA NITROGEN 2 mg/dL (7-18); CALCIUM 8.5 MG/DL (8.5-10.1); CARBON DIOXIDE 26 MMOL/L (21-32); CHLORIDE 97 MMOL/L (98-107); CREATININE 0.4 MG/DL (0.55-1.30); PHOSPHORUS 3.2 MG/DL (2.5-4.9); POTASSIUM 3.6 MMOL/L (3.5-5.1); SODIUM 134 MMOL/L (136-145)
--- NOTE | 2019-03-19 07:30 | NUR ---
NURSE NOTES: Received report from Ese MOON. Patient is awake and oriented, no acute distress noted, reporting mild abdominal pain. Abdominal surgical site with steri strips open to air clean and intact. Patient encouraged to eat breakfast as tolerated. IV intact. Patient's family at bedside, updated on plan of care. Fall precautions maintained. Side rails upx3, bed low and locked, bed alarm armed, will continue to monitor.
[2019-03-19 08:00] VITALS: BP 120/60
[2019-03-19] MEDS: Heparin 5000 units/ml inj SUBQ SCH ×2 (08:54→21:29)
--- NOTE | 2019-03-19 09:20 | Nephrology Progress Note ---
Assessment/Plan Problem List: (1) Perforated abdominal viscus (2) Hypokalemia (3) Hypomagnesemia (4) Diabetes mellitus (5) Anemia Assessment Post lap on 03/10 Low K Low Phos Low Mag Anemia DM h/o HTN Plan high K likely hemolysis resolved DC IV start megace for apetite change all to orals Mag and K and Phos IV as needed Anemia claudio Keep BP and BS in check per orders DC planning Subjective ROS Limited/Unobtainable: No Constitutional: Reports: malaise, other - poor po Objective Objective Last 24 Hour Vital Signs Date Time Temp Pulse Resp B/P (MAP) Pulse Ox O2 Delivery O2 Flow Rate FiO2 03/19/19 04:00 98.8 93 19 137/62 (87) 96 03/19/19 00:00 97.7 94 18 143/67 (92) 96 03/18/19 21:00 Room Air 03/18/19 20:00 99.7 97 18 128/62 (84) 99 03/18/19 19:54 96 Room Air 21 03/18/19 16:00 99.0 80 20 129/70 (89) 95 03/18/19 12:00 99.7 86 18 130/60 (83) 94 Intake and Output 03/18/19 03/19/19 18:59 06:59 Intake Total 240 ml 120 ml Balance 240 ml 120 ml Intake Oral 240 ml 120 ml # Voids 3 3 # Bowel Movements 4 1 Laboratory Tests 03/19/19 04:50: White Blood Count 9.0#, Red Blood Count 3.33L, Hemoglobin 9.8L, Hematocrit 30.0L , Mean Corpuscular Volume 90, Mean Corpuscular Hemoglobin 29.5, Mean Corpuscular Hemoglobin Concent 32.8, Red Cell Distribution Width 15.4H, Platelet Count 198, Mean Platelet Volume 6.6, Neutrophils (%) (Auto) 81.3H, Lymphocytes (%) (Auto) 11.0L, Monocytes (%) (Auto) 6.3, Eosinophils (%) (Auto) 0.8, Basophils (%) (Auto) 0.7, Sodium Level 134L, Potassium Level 3.6, Chloride Level 97L, Carbon Dioxide Level 26, Anion Gap 11, Blood Urea Nitrogen 2L, Creatinine 0.4L, Estimat Glomerular Filtration Rate , Glucose Level 164H, Uric Acid 2.6, Calcium Level 8.5, Phosphorus Level 3.2, Magnesium Level 1.2L, Total Bilirubin 0.6, Aspartate Amino Transf (AST/SGOT) 29, Alanine Aminotransferase ( ALT/SGPT) 29, Alkaline Phosphatase 238H, C-Reactive Protein, Quantitative 20.2H , Total Protein 5.3L, Albumin 1.8L, Globulin 3.5, Albumin/Globulin Ratio 0.5L Height (Feet): 5 Height (Inches): 0.00 Weight (Pounds): 113 General Appearance: no apparent distress Objective no change El Clark MD Mar 19, 2019 09:20
[2019-03-19] MEDS: Megace 400mg/10ml Susp ORAL SCH ×2 (10:04→17:36)
--- NOTE | 2019-03-19 11:43 | Infectious Diseases Prog Note ---
Assessment/Plan Assessment/Plan Assessment: Perforated pre-pyloric gastric ulcer -s/p UGI series: Negative for postoperative leak -03/10 SP 03/10 SP Exploratory Laparotomy, Abdominal washout. Partial omentectomy. Shane patch for repair of perforated pre-pyloric ulcer. -03/10 CT abd/p: Free intraperitoneal gas. Etiology not completely certain, but gas within and extending from the anterior gastric antral wall is suspicious for a perforated gastric ulcer. Perforated descending colon diverticulitis also possible but deemed much less likely. Free intraperitoneal fluid, presumably related to the above. Fatty liver. Basilar pulmonary parenchymal groundglass opacities. This could indicate pulmonary edema, among other possibilities. Subcentimeter low-attenuation renal lesions, too small to characterize, most likely benign simple cyst. No further follow-up necessary. 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 Afebrile Mild leukocytosis, SP -u/a neg -CXR: Bilateral basilar atelectatic changes VDRF, post-op; extubated 03/12 DARRON, SP Dm2 HTN Plan: -Cont Fluconazole # 7/7-10 for thrush -03/15 SP Zosyn #6 -03/10 SP IV Vancomycin #1, Ancef x1 -f/u cx -Monitor CBC/CMP, temperatures -Sx f/u -wound care per surgical team -aspiration precautions Subjective Allergies: Coded Allergies: No Known Allergies (Unverified , 03/10/19) Subjective comfortable Objective Vital Signs Last 24 Hour Vital Signs Date Time Temp Pulse Resp B/P (MAP) Pulse Ox O2 Delivery O2 Flow Rate FiO2 03/19/19 09:00 Room Air 03/19/19 08:00 99.7 109 20 120/60 (80) 95 03/19/19 04:00 98.8 93 19 137/62 (87) 96 03/19/19 00:00 97.7 94 18 143/67 (92) 96 03/18/19 21:00 Room Air 03/18/19 20:00 99.7 97 18 128/62 (84) 99 03/18/19 19:54 96 Room Air 21 03/18/19 16:00 99.0 80 20 129/70 (89) 95 03/18/19 12:00 99.7 86 18 130/60 (83) 94 Height (Feet): 5 Height (Inches): 0.00 Weight (Pounds): 113 HEENT: anicteric Respiratory/Chest: normal breath sounds Cardiovascular: regularly irregular Abdomen: no organomegaly Laboratory Tests Test 03/19/19 04:50 White Blood Count 9.0 K/UL (4.8-10.8) # Red Blood Count 3.33 M/UL (4.20-5.40) L Hemoglobin 9.8 G/DL (12.0-16.0) L Hematocrit 30.0 % (37.0-47.0) L Mean Corpuscular Volume 90 FL (80-99) Mean Corpuscular Hemoglobin 29.5 PG (27.0-31.0) Mean Corpuscular Hemoglobin Concent 32.8 G/DL (32.0-36.0) Red Cell Distribution Width 15.4 % (11.6-14.8) H Platelet Count 198 K/UL (150-450) Mean Platelet Volume 6.6 FL (6.5-10.1) Neutrophils (%) (Auto) 81.3 % (45.0-75.0) H Lymphocytes (%) (Auto) 11.0 % (20.0-45.0) L Monocytes (%) (Auto) 6.3 % (1.0-10.0) Eosinophils (%) (Auto) 0.8 % (0.0-3.0) Basophils (%) (Auto) 0.7 % (0.0-2.0) Sodium Level 134 MMOL/L (136-145) L Potassium Level 3.6 MMOL/L (3.5-5.1) Chloride Level 97 MMOL/L (98-107) L Carbon Dioxide Level 26 MMOL/L (21-32) Anion Gap 11 mmol/L (5-15) Blood Urea Nitrogen 2 mg/dL (7-18) L Creatinine 0.4 MG/DL (0.55-1.30) L Estimat Glomerular Filtration Rate mL/min (>60) Glucose Level 164 MG/DL (74-106) H Uric Acid 2.6 MG/DL (2.6-7.2) Calcium Level 8.5 MG/DL (8.5-10.1) Phosphorus Level 3.2 MG/DL (2.5-4.9) Magnesium Level 1.2 MG/DL (1.8-2.4) L Total Bilirubin 0.6 MG/DL (0.2-1.0) Aspartate Amino Transf (AST/SGOT) 29 U/L (15-37) Alanine Aminotransferase (ALT/SGPT) 29 U/L (12-78) Alkaline Phosphatase 238 U/L (46-116) H C-Reactive Protein, Quantitative 20.2 mg/dL (0.00-0.90) H Total Protein 5.3 G/DL (6.4-8.2) L Albumin 1.8 G/DL (3.4-5.0) L Globulin 3.5 g/dL Albumin/Globulin Ratio 0.5 (1.0-2.7) L Current Medications Medications (Trade) Dose Ordered Sig/Shantelle Route PRN Reason Start Time Stop Time Status Last Admin Dose Admin Acetaminophen (Tylenol) 650 mg Q4H PRN RECTAL FEVER (T>100.5F) 03/13/19 18:30 04/09/19 18:29 Fluconazole (Diflucan) 100 mg Q24H ORAL 03/16/19 20:00 03/23/19 19:59 03/18/19 20:26 Heparin Sodium (Porcine) (Heparin 5000 units/ml) 5,000 units EVERY 12 HOURS SUBQ 03/13/19 21:00 04/09/19 20:59 03/19/19 08:54 Magnesium Sulfate 100 ml @ 100 mls/hr Q1H IVPB 03/19/19 08:30 03/19/19 12:29 03/19/19 11:10 Megestrol Acetate (Megace) 400 mg TWICE A DAY ORAL 03/19/19 09:30 04/18/19 09:29 03/19/19 10:04 Ondansetron HCl (Zofran) 4 mg Q6H PRN IVP Nausea & Vomiting 03/13/19 19:15 04/09/19 13:14 Pantoprazole (Protonix) 40 mg EVERY 12 HOURS ORAL 03/16/19 21:00 04/15/19 20:59 03/19/19 08:53 Potassium Chloride (K-Dur) 40 meq DAILY ORAL 03/19/19 09:00 04/18/19 08:59 03/19/19 08:53 Tramadol HCl (Ultram) 25 mg Q6H PRN ORAL pain over 4 8/28/19 13:00 03/23/19 12:59 03/17/19 18:10 Smooth Weinstein MD Mar 19, 2019 11:43
[2019-03-19 12:00] VITALS: BP 134/66
--- NOTE | 2019-03-19 13:30 | NUR ---
NURSE NOTES: Noted patient has low grade fever of 100.4, cooling measures provided. Tylenol suppository ordered for fever >100.5. Will continue to monitor.
--- NOTE | 2019-03-19 15:15 | NUR ---
HAND-OFF: Report given to Reina MOON. Patient is in stable condition.
[2019-03-19] MEDS: traMADol 50mg tab ORAL PRN (15:30)
--- NOTE | 2019-03-19 15:47 | Internal Med Progress Note ---
Subjective Date of Service: Mar 19, 2019 Physician Name Zen Paige Attending Physician Marcos Silva MD Current Medications Medications (Trade) Dose Ordered Sig/Shantelle Route PRN Reason Start Time Stop Time Status Last Admin Dose Admin Acetaminophen (Tylenol) 650 mg Q4H PRN RECTAL FEVER (T>100.5F) 03/13/19 18:30 04/09/19 18:29 03/19/19 15:31 Fluconazole (Diflucan) 100 mg Q24H ORAL 03/16/19 20:00 03/23/19 19:59 03/18/19 20:26 Heparin Sodium (Porcine) (Heparin 5000 units/ml) 5,000 units EVERY 12 HOURS SUBQ 03/13/19 21:00 04/09/19 20:59 03/19/19 08:54 Megestrol Acetate (Megace) 400 mg TWICE A DAY ORAL 03/19/19 09:30 04/18/19 09:29 03/19/19 10:04 Ondansetron HCl (Zofran) 4 mg Q6H PRN IVP Nausea & Vomiting 03/13/19 19:15 04/09/19 13:14 Pantoprazole (Protonix) 40 mg EVERY 12 HOURS ORAL 03/16/19 21:00 04/15/19 20:59 03/19/19 08:53 Potassium Chloride (K-Dur) 40 meq DAILY ORAL 03/19/19 09:00 04/18/19 08:59 03/19/19 08:53 Tramadol HCl (Ultram) 25 mg Q6H PRN ORAL pain over 4 03/16/19 13:00 03/23/19 12:59 03/19/19 15:30 Allergies: Coded Allergies: No Known Allergies (Unverified , 03/10/19) ROS Limited/Unobtainable: No Constitutional: Reports: no symptoms HEENT: Reports: no symptoms Cardiovascular: Reports: no symptoms Respiratory: Reports: no symptoms Gastrointestinal/Abdominal: Reports: no symptoms Genitourinary: Reports: no symptoms Neurologic/Psychiatric: Reports: no symptoms Subjective 84 YO F admitted with abdominal pain. S/P exploratory laparotomy 03/10/19. Cover for Reagan Silva. Fever to 100.4F Objective Last Vital Signs Date Time Temp Pulse Resp B/P (MAP) Pulse Ox O2 Delivery O2 Flow Rate FiO2 03/19/19 12:00 100.4 104 16 134/66 (88) 96 03/19/19 09:00 Room Air 03/18/19 19:54 21 03/15/19 09:00 2.0 Laboratory Tests Test 03/19/19 04:50 White Blood Count 9.0 K/UL (4.8-10.8) # Red Blood Count 3.33 M/UL (4.20-5.40) L Hemoglobin 9.8 G/DL (12.0-16.0) L Hematocrit 30.0 % (37.0-47.0) L Mean Corpuscular Volume 90 FL (80-99) Mean Corpuscular Hemoglobin 29.5 PG (27.0-31.0) Mean Corpuscular Hemoglobin Concent 32.8 G/DL (32.0-36.0) Red Cell Distribution Width 15.4 % (11.6-14.8) H Platelet Count 198 K/UL (150-450) Mean Platelet Volume 6.6 FL (6.5-10.1) Neutrophils (%) (Auto) 81.3 % (45.0-75.0) H Lymphocytes (%) (Auto) 11.0 % (20.0-45.0) L Monocytes (%) (Auto) 6.3 % (1.0-10.0) Eosinophils (%) (Auto) 0.8 % (0.0-3.0) Basophils (%) (Auto) 0.7 % (0.0-2.0) Sodium Level 134 MMOL/L (136-145) L Potassium Level 3.6 MMOL/L (3.5-5.1) Chloride Level 97 MMOL/L (98-107) L Carbon Dioxide Level 26 MMOL/L (21-32) Anion Gap 11 mmol/L (5-15) Blood Urea Nitrogen 2 mg/dL (7-18) L Creatinine 0.4 MG/DL (0.55-1.30) L Estimat Glomerular Filtration Rate mL/min (>60) Glucose Level 164 MG/DL (74-106) H Uric Acid 2.6 MG/DL (2.6-7.2) Calcium Level 8.5 MG/DL (8.5-10.1) Phosphorus Level 3.2 MG/DL (2.5-4.9) Magnesium Level 1.2 MG/DL (1.8-2.4) L Total Bilirubin 0.6 MG/DL (0.2-1.0) Aspartate Amino Transf (AST/SGOT) 29 U/L (15-37) Alanine Aminotransferase (ALT/SGPT) 29 U/L (12-78) Alkaline Phosphatase 238 U/L (46-116) H C-Reactive Protein, Quantitative 20.2 mg/dL (0.00-0.90) H Total Protein 5.3 G/DL (6.4-8.2) L Albumin 1.8 G/DL (3.4-5.0) L Globulin 3.5 g/dL Albumin/Globulin Ratio 0.5 (1.0-2.7) L Intake and Output 03/18/19 03/19/19 19:00 07:00 Intake Total 240 ml 120 ml Balance 240 ml 120 ml Intake Oral 240 ml 120 ml # Voids 3 3 # Bowel Movements 4 1 Objective PHYSICAL EXAMINATION: GENERAL: The patient is a well developed, well nourished female who is intubated and sedated. HEENT: Eyes, pupils equal and responsive to light and accommodation. Extraocular movements are intact. NECK: Supple without lymphadenopathy. CHEST: Nasc canula; Few diffuse wheezes bilaterally. Otherwise, without wheezes or rales. CARDIOVASCULAR: Regular rhythm rate. S1-S2 are normal without murmurs, rubs, or gallops. ABDOMEN: NGT; Soft, nontender with decreased bowel sounds. No evidence of hepatosplenomegaly. no rebound or guarding noted. EXTREMITIES: Negative for clubbing, cyanosis, edema. RECTAL/GENITAL: Not performed. NEUROLOGIC: Cranial nerves II through XII are grossly intact without focal deficits. Assessment/Plan Assessment/Plan ASSESSMENT: This is an 84-year-old female. 1. Perforated gastric ulcer 2. Abdominal pain. 3. Nausea with vomiting. 4. Diabetes type 2. 5. Hypertension. 6. Post Op fever TREATMENT: 1. Perforated gastric ulcer. A General Surgery consultation has been obtained with Dr. Sheth. S/P exploratory laparotomy 03/10/19=perforated Pre pyloric ulcer. Tolerating regular diet; NGT discontinued per surgery 2. Diabetes type 2. NovoLog sliding scale has been instituted. 3. Hypertension. The patient is currently hypotensive. 4. Respiratory failure. S/P extubation 03/12/19. A Pulmonary consultation has been obtained with Dr. Bibiana Pennington. 5. Med/surg 6. Discharge planning Zen Paige MD Mar 19, 2019 15:47
--- NOTE | 2019-03-19 16:50 | NUR ---
NURSE NOTES: Care taken over for pt. Noted warm to touch, temperature 101.9 suppository of Tylenol given , cool towel placed on forehead fluids provided. Call light in reach. Pt is Russian speaker family is at bedside
--- NOTE | 2019-03-19 18:10 | Surgery Progress Note ---
Surgery Progress Note Subjective Procedure Performed ex lap with imelda patch, washout, omentectomy Symptoms: improved, tolerating diet, voiding well, passing flatus, BM Objective Last 24 Hour Vital Signs Date Time Temp Pulse Resp B/P (MAP) Pulse Ox O2 Delivery O2 Flow Rate FiO2 03/19/19 12:00 100.4 104 16 134/66 (88) 96 03/19/19 09:00 Room Air 03/19/19 08:00 99.7 109 20 120/60 (80) 95 03/19/19 04:00 98.8 93 19 137/62 (87) 96 03/19/19 00:00 97.7 94 18 143/67 (92) 96 03/18/19 21:00 Room Air 03/18/19 20:00 99.7 97 18 128/62 (84) 99 03/18/19 19:54 96 Room Air 21 I&O Intake and Output 03/18/19 03/19/19 19:00 07:00 Intake Total 240 ml 120 ml Balance 240 ml 120 ml Intake Oral 240 ml 120 ml # Voids 3 3 # Bowel Movements 4 1 Dressing: dry Wound: clean Cardiovascular: RSR Respiratory: clear Abdomen: soft, flat, non-tender, present bowel sounds, non-distended Extremities: no edema, no tenderness, no cyanosis Laboratory Tests Test 03/19/19 04:50 White Blood Count 9.0 K/UL (4.8-10.8) # Red Blood Count 3.33 M/UL (4.20-5.40) L Hemoglobin 9.8 G/DL (12.0-16.0) L Hematocrit 30.0 % (37.0-47.0) L Mean Corpuscular Volume 90 FL (80-99) Mean Corpuscular Hemoglobin 29.5 PG (27.0-31.0) Mean Corpuscular Hemoglobin Concent 32.8 G/DL (32.0-36.0) Red Cell Distribution Width 15.4 % (11.6-14.8) H Platelet Count 198 K/UL (150-450) Mean Platelet Volume 6.6 FL (6.5-10.1) Neutrophils (%) (Auto) 81.3 % (45.0-75.0) H Lymphocytes (%) (Auto) 11.0 % (20.0-45.0) L Monocytes (%) (Auto) 6.3 % (1.0-10.0) Eosinophils (%) (Auto) 0.8 % (0.0-3.0) Basophils (%) (Auto) 0.7 % (0.0-2.0) Sodium Level 134 MMOL/L (136-145) L Potassium Level 3.6 MMOL/L (3.5-5.1) Chloride Level 97 MMOL/L (98-107) L Carbon Dioxide Level 26 MMOL/L (21-32) Anion Gap 11 mmol/L (5-15) Blood Urea Nitrogen 2 mg/dL (7-18) L Creatinine 0.4 MG/DL (0.55-1.30) L Estimat Glomerular Filtration Rate mL/min (>60) Glucose Level 164 MG/DL (74-106) H Uric Acid 2.6 MG/DL (2.6-7.2) Calcium Level 8.5 MG/DL (8.5-10.1) Phosphorus Level 3.2 MG/DL (2.5-4.9) Magnesium Level 1.2 MG/DL (1.8-2.4) L Total Bilirubin 0.6 MG/DL (0.2-1.0) Aspartate Amino Transf (AST/SGOT) 29 U/L (15-37) Alanine Aminotransferase (ALT/SGPT) 29 U/L (12-78) Alkaline Phosphatase 238 U/L (46-116) H C-Reactive Protein, Quantitative 20.2 mg/dL (0.00-0.90) H Total Protein 5.3 G/DL (6.4-8.2) L Albumin 1.8 G/DL (3.4-5.0) L Globulin 3.5 g/dL Albumin/Globulin Ratio 0.5 (1.0-2.7) L Assessment Post-op Diagnosis perforated prepyloric gastric ulcer Plan Problems: (1) Peritonitis Assessment & Plan: 84F with perforated abdominal viscus likely gastric perforation based on CT findings s/p imelda patch recovering labs improved exam improved advance diet anna removed c diff d/c planning okay to ambulate thank you (2) Perforated abdominal viscus Mike Sheth Mar 19, 2019 18:10
--- NOTE | 2019-03-19 19:00 | NUR ---
NURSE NOTES: Temperature reassessed earlier in shift came down to 99.[address] Paige made aware while here in facility. Assisted to had a bm , Anticipated needs met
[2019-03-19 20:00] VITALS: BP 131/62
--- NOTE | 2019-03-19 20:12 | NUR ---
NURSE NOTES: Patient in bed, awake, verbally responsive. Family at bedside. IV in place. No s/s distress noted. No complaints of pain at this time. Bed in lowest position, call light within reach, will continue to monitor.
--- NOTE | 2019-03-19 20:28 | NUR ---
HAND-OFF: Report given to Kristen MOON informed of elevated temp 101.9 , temp after Tyenol. Family reamins at bedside.
[2019-03-19] MEDS: Fluconazole 100mg tab ORAL SCH (21:23)
[2019-03-19 22:59] LABS: APPEARANCE,URINE CLEAR; BILIRUBIN, URINE NEGATIVE (NEGATIVE); COLOR,URINE PALE YELLOW; GLUCOSE, URINE (UA) 4+ (NEGATIVE); KETONES,URINE 1+ (NEGATIVE); LEUKOCYTE ESTERASE ,URINE NEGATIVE (NEGATIVE); NITRITE,URINE NEGATIVE (NEGATIVE); PH,URINE 7 (4.5-8.0); PROTEIN,URINE NEGATIVE (NEGATIVE); UROBILINOGEN,URINE NORMAL MG/DL (0.0-1.0)
[2019-03-20 00:38] VITALS: BP 131/61
[2019-03-20 04:39] VITALS: BP 121/50
--- NOTE | 2019-03-20 05:51 | NUR ---
NURSE NOTES: Patient asleep, in no apparent distress, v/s stable.
[2019-03-20 07:00] LABS: BASOPHILS % (AUTO) 0.9 % (0.0-2.0); EOSINOPHILS % (AUTO) 1.1 % (0.0-3.0); HEMATOCRIT 29.7 % (37.0-47.0); HEMOGLOBIN 9.6 G/DL (12.0-16.0); MEAN CORPUSCULAR VOLUME 90 FL (80-99); MONOCYTES % (AUTO) 7.5 % (1.0-10.0); NEUTROPHILS % (AUTO) 79.4 % (45.0-75.0); PLATELET COUNT 215 K/UL (150-450); RED BLOOD COUNT 3.29 M/UL (4.20-5.40); RED CELL DISTRIBUTION WIDTH 15.2 % (11.6-14.8); WHITE BLOOD COUNT 7.9 K/UL (4.8-10.8)
--- NOTE | 2019-03-20 07:19 | NUR ---
HAND-OFF: Report given to HEMAL AYALA RN/RICHIE ABDI RN.
--- NOTE | 2019-03-20 07:20 | NUR ---
NURSE NOTES: Patient lying in bed sleeping. No complain of pain or distress at this time. Surgical dressing intact and dry. IV dressing intact and dry. Bed lowest position. Call light within reach. Will continue to monitor.
[2019-03-20 07:25] LABS: ANION GAP 9 mmol/L (5-15); BLOOD UREA NITROGEN 4 mg/dL (7-18); CALCIUM 8.5 MG/DL (8.5-10.1); CARBON DIOXIDE 26 MMOL/L (21-32); CHLORIDE 101 MMOL/L (98-107); CREATININE 0.5 MG/DL (0.55-1.30); POTASSIUM 3.3 MMOL/L (3.5-5.1); SODIUM 136 MMOL/L (136-145)
[2019-03-20 08:00] VITALS: BP 118/58
[2019-03-20 08:40] LABS: PHOSPHORUS 3.1 MG/DL (2.5-4.9)
[2019-03-20] MEDS: Megace 400mg/10ml Susp ORAL SCH ×2 (08:47→18:09)
[2019-03-20] MEDS: Heparin 5000 units/ml inj SUBQ SCH ×2 (08:48→21:05)
--- NOTE | 2019-03-20 09:20 | NUR ---
NURSE NOTES: Spoke to and verified Potassium order and new order received. Order read back and carried out.
--- NOTE | 2019-03-20 09:34 | Diagnostic Imaging Report ---
EXAM: XR Chest, 1 View CLINICAL HISTORY: COUGH TECHNIQUE: Frontal view of the chest. COMPARISON: Chest x-ray dated 03/11/19 FINDINGS: Lungs: Subsegmental atelectasis versus infiltrate in the left lung base. The lungs otherwise appear clear. Pleural space: Unremarkable. The costophrenic angles are sharp. No visible pneumothorax. Heart: Unremarkable. No cardiomegaly. Mediastinum: Unremarkable. Bones/joints: Unremarkable. Vasculature: Atherosclerotic calcifications are noted within the aortic arch. IMPRESSION: Subsegmental atelectasis versus infiltrate in the left lung base.
--- NOTE | 2019-03-20 11:10 | NUR ---
NURSE NOTES: Seen and evaluated by and new order received. Order read back and carried out.
--- NOTE | 2019-03-20 11:40 | Surgery Progress Note ---
Surgery Progress Note Subjective Procedure Performed ex lap with imelda patch, washout, omentectomy Symptoms: improved, tolerating diet, voiding well, passing flatus, BM Objective Last 24 Hour Vital Signs Date Time Temp Pulse Resp B/P (MAP) Pulse Ox O2 Delivery O2 Flow Rate FiO2 03/20/19 09:00 Room Air 03/20/19 08:00 97.5 96 22 118/58 (78) 95 03/20/19 04:39 97.4 84 18 121/50 (73) 95 03/20/19 00:38 97.4 95 18 131/61 (84) 94 03/19/19 22:25 98.9 03/19/19 22:11 Room Air 03/19/19 20:00 100.5 96 18 131/62 (85) 94 03/19/19 12:00 100.4 104 16 134/66 (88) 96 I&O Intake and Output 03/19/19 03/20/19 19:00 07:00 Intake Total 600 ml 120 ml Balance 600 ml 120 ml Intake Oral 200 ml 120 ml IV Total 400 ml # Voids 3 2 # Bowel Movements 2 Dressing: dry Wound: clean Cardiovascular: RSR Respiratory: clear Abdomen: soft, flat, non-tender, present bowel sounds Extremities: no edema, no tenderness, no cyanosis Laboratory Tests Test 03/19/19 22:30 03/20/19 05:05 Urine Color Pale yellow Urine Appearance Clear Urine pH 7 (4.5-8.0) Urine Specific [place] 1.005 (1.005-1.035) Urine Protein Negative (NEGATIVE) Urine Glucose (UA) 4+ (NEGATIVE) H Urine Ketones 1+ (NEGATIVE) H Urine Blood Negative (NEGATIVE) Urine Nitrite Negative (NEGATIVE) Urine Bilirubin Negative (NEGATIVE) Urine Urobilinogen Normal MG/DL (0.0-1.0) Urine Leukocyte Esterase Negative (NEGATIVE) Urine RBC 0 /HPF (0 - 2) Urine WBC 0 /HPF (0 - 2) Urine Squamous Epithelial Cells Occasional /LPF Urine Bacteria None /HPF (NONE) White Blood Count 7.9 K/UL (4.8-10.8) Red Blood Count 3.29 M/UL (4.20-5.40) L Hemoglobin 9.6 G/DL (12.0-16.0) L Hematocrit 29.7 % (37.0-47.0) L Mean Corpuscular Volume 90 FL (80-99) Mean Corpuscular Hemoglobin 29.2 PG (27.0-31.0) Mean Corpuscular Hemoglobin Concent 32.3 G/DL (32.0-36.0) Red Cell Distribution Width 15.2 % (11.6-14.8) H Platelet Count 215 K/UL (150-450) Mean Platelet Volume 7.3 FL (6.5-10.1) Neutrophils (%) (Auto) 79.4 % (45.0-75.0) H Lymphocytes (%) (Auto) 11.0 % (20.0-45.0) L Monocytes (%) (Auto) 7.5 % (1.0-10.0) Eosinophils (%) (Auto) 1.1 % (0.0-3.0) Basophils (%) (Auto) 0.9 % (0.0-2.0) Sodium Level 136 MMOL/L (136-145) Potassium Level 3.3 MMOL/L (3.5-5.1) L Chloride Level 101 MMOL/L (98-107) Carbon Dioxide Level 26 MMOL/L (21-32) Anion Gap 9 mmol/L (5-15) Blood Urea Nitrogen 4 mg/dL (7-18) L Creatinine 0.5 MG/DL (0.55-1.30) L Estimat Glomerular Filtration Rate mL/min (>60) Glucose Level 269 MG/DL (74-106) #H Calcium Level 8.5 MG/DL (8.5-10.1) Phosphorus Level 3.1 MG/DL (2.5-4.9) Magnesium Level 1.7 MG/DL (1.8-2.4) L Assessment Post-op Diagnosis perforated prepyloric gastric ulcer Plan Problems: (1) Peritonitis Assessment & Plan: 84F with perforated abdominal viscus likely gastric perforation based on CT findings s/p imelda patch recovering labs improved exam improved advance diet anna removed c diff d/c planning Patient needs to be on a PPI upon discharge. Furthermore patient follow-up with GI as an outpatient for H. pylori treatment. Will hold off on acute treatment in the hospital given how ill patient was not she is gone through do not want to overload her with antibiotics. okay to ambulate thank you (2) Perforated abdominal viscus Mike Sheth Mar 20, 2019 11:40
[2019-03-20 12:00] VITALS: BP 109/60
[2019-03-20] MEDS ORDERED: K-TAB ER20 MEQ ORAL (13:29)
[2019-03-20] MEDS ORDERED: PANTOPRAZOLE SO40 MG ORAL (13:29)
--- NOTE | 2019-03-20 13:32 | Internal Med Progress Note ---
Subjective Date of Service: Mar 20, 2019 Physician Name Zen Paige Attending Physician Marcos Silva MD Current Medications Medications (Trade) Dose Ordered Sig/Shantelle Route PRN Reason Start Time Stop Time Status Last Admin Dose Admin Acetaminophen (Tylenol) 650 mg Q4H PRN ORAL Mild Pain/Temp > 100.5 03/19/19 16:00 04/18/19 15:59 03/19/19 21:23 Fluconazole (Diflucan) 100 mg Q24H ORAL 03/16/19 20:00 03/23/19 19:59 03/19/19 21:23 Heparin Sodium (Porcine) (Heparin 5000 units/ml) 5,000 units EVERY 12 HOURS SUBQ 03/13/19 21:00 04/09/19 20:59 03/20/19 08:48 Megestrol Acetate (Megace) 400 mg TWICE A DAY ORAL 03/19/19 09:30 04/18/19 09:29 03/20/19 08:47 Ondansetron HCl (Zofran) 4 mg Q6H PRN IVP Nausea & Vomiting 03/13/19 19:15 04/09/19 13:14 Pantoprazole (Protonix) 40 mg EVERY 12 HOURS ORAL 03/16/19 21:00 04/15/19 20:59 03/20/19 08:48 Potassium Chloride (K-Dur) 40 meq DAILY ORAL 03/19/19 09:00 04/18/19 08:59 03/20/19 08:48 Tramadol HCl (Ultram) 25 mg Q6H PRN ORAL pain over 4 03/16/19 13:00 03/23/19 12:59 03/19/19 15:30 Allergies: Coded Allergies: No Known Allergies (Unverified , 03/10/19) ROS Limited/Unobtainable: No Constitutional: Reports: no symptoms HEENT: Reports: no symptoms Cardiovascular: Reports: no symptoms Respiratory: Reports: no symptoms Gastrointestinal/Abdominal: Reports: no symptoms Genitourinary: Reports: no symptoms Neurologic/Psychiatric: Reports: no symptoms Subjective 84 YO F admitted with abdominal pain. S/P exploratory laparotomy 03/10/19. Cover for Reagan Silva. Fever to 100.4F Objective Last Vital Signs Date Time Temp Pulse Resp B/P (MAP) Pulse Ox O2 Delivery O2 Flow Rate FiO2 03/20/19 12:00 99.1 93 20 109/60 (76) 94 03/20/19 09:00 Room Air 03/18/19 19:54 21 03/15/19 09:00 2.0 Laboratory Tests Test 03/19/19 22:30 03/20/19 05:05 Urine Color Pale yellow Urine Appearance Clear Urine pH 7 (4.5-8.0) Urine Specific [place] 1.005 (1.005-1.035) Urine Protein Negative (NEGATIVE) Urine Glucose (UA) 4+ (NEGATIVE) H Urine Ketones 1+ (NEGATIVE) H Urine Blood Negative (NEGATIVE) Urine Nitrite Negative (NEGATIVE) Urine Bilirubin Negative (NEGATIVE) Urine Urobilinogen Normal MG/DL (0.0-1.0) Urine Leukocyte Esterase Negative (NEGATIVE) Urine RBC 0 /HPF (0 - 2) Urine WBC 0 /HPF (0 - 2) Urine Squamous Epithelial Cells Occasional /LPF Urine Bacteria None /HPF (NONE) White Blood Count 7.9 K/UL (4.8-10.8) Red Blood Count 3.29 M/UL (4.20-5.40) L Hemoglobin 9.6 G/DL (12.0-16.0) L Hematocrit 29.7 % (37.0-47.0) L Mean Corpuscular Volume 90 FL (80-99) Mean Corpuscular Hemoglobin 29.2 PG (27.0-31.0) Mean Corpuscular Hemoglobin Concent 32.3 G/DL (32.0-36.0) Red Cell Distribution Width 15.2 % (11.6-14.8) H Platelet Count 215 K/UL (150-450) Mean Platelet Volume 7.3 FL (6.5-10.1) Neutrophils (%) (Auto) 79.4 % (45.0-75.0) H Lymphocytes (%) (Auto) 11.0 % (20.0-45.0) L Monocytes (%) (Auto) 7.5 % (1.0-10.0) Eosinophils (%) (Auto) 1.1 % (0.0-3.0) Basophils (%) (Auto) 0.9 % (0.0-2.0) Sodium Level 136 MMOL/L (136-145) Potassium Level 3.3 MMOL/L (3.5-5.1) L Chloride Level 101 MMOL/L (98-107) Carbon Dioxide Level 26 MMOL/L (21-32) Anion Gap 9 mmol/L (5-15) Blood Urea Nitrogen 4 mg/dL (7-18) L Creatinine 0.5 MG/DL (0.55-1.30) L Estimat Glomerular Filtration Rate mL/min (>60) Glucose Level 269 MG/DL (74-106) #H Calcium Level 8.5 MG/DL (8.5-10.1) Phosphorus Level 3.1 MG/DL (2.5-4.9) Magnesium Level 1.7 MG/DL (1.8-2.4) L Microbiology Date/Time Source Procedure Growth Status 03/18/19 13:30 Stool Clostridium difficile Toxin Assay - Final Complete Intake and Output 03/19/19 03/20/19 18:59 06:59 Intake Total 600 ml 120 ml Balance 600 ml 120 ml Intake Oral 200 ml 120 ml IV Total 400 ml # Voids 3 2 # Bowel Movements 2 Objective PHYSICAL EXAMINATION: GENERAL: The patient is a well developed, well nourished female who is intubated and sedated. HEENT: Eyes, pupils equal and responsive to light and accommodation. Extraocular movements are intact. NECK: Supple without lymphadenopathy. CHEST: Nasc canula; Few diffuse wheezes bilaterally. Otherwise, without wheezes or rales. CARDIOVASCULAR: Regular rhythm rate. S1-S2 are normal without murmurs, rubs, or gallops. ABDOMEN: NGT; Soft, nontender with decreased bowel sounds. No evidence of hepatosplenomegaly. no rebound or guarding noted. EXTREMITIES: Negative for clubbing, cyanosis, edema. RECTAL/GENITAL: Not performed. NEUROLOGIC: Cranial nerves II through XII are grossly intact without focal deficits. Assessment/Plan Assessment/Plan ASSESSMENT: This is an 84-year-old female. 1. Perforated gastric ulcer 2. Abdominal pain. 3. Nausea with vomiting. 4. Diabetes type 2. 5. Hypertension. 6. Post Op fever-resolved TREATMENT: 1. Perforated gastric ulcer. A General Surgery consultation has been obtained with Dr. Sheth. S/P exploratory laparotomy 03/10/19=perforated Pre pyloric ulcer. Tolerating regular diet; NGT discontinued per surgery 2. Diabetes type 2. NovoLog sliding scale has been instituted. 3. Hypertension. The patient is currently hypotensive. 4. Respiratory failure. S/P extubation 03/12/19. A Pulmonary consultation has been obtained with Dr. Bibiana Pennington. 5. Med/surg 6. Discharge planning Zen Paige MD Mar 20, 2019 13:32
[2019-03-20 16:00] VITALS: BP 128/54
--- NOTE | 2019-03-20 16:57 | Nephrology Progress Note ---
Assessment/Plan Problem List: (1) Perforated abdominal viscus (2) Hypokalemia (3) Hypomagnesemia (4) Diabetes mellitus (5) Anemia Assessment Post lap on 03/10 Low K Low Phos Low Mag Anemia DM h/o HTN Plan high K likely hemolysis resolved DC IV start megace for apetite change all to orals Mag and K and Phos IV as needed Anemia claudio Keep BP and BS in check per orders DC planning Subjective ROS Limited/Unobtainable: No Constitutional: Reports: malaise Objective Objective Last 24 Hour Vital Signs Date Time Temp Pulse Resp B/P (MAP) Pulse Ox O2 Delivery O2 Flow Rate FiO2 03/20/19 12:00 99.1 93 20 109/60 (76) 94 03/20/19 09:00 Room Air 03/20/19 08:00 97.5 96 22 118/58 (78) 95 03/20/19 04:39 97.4 84 18 121/50 (73) 95 03/20/19 00:38 97.4 95 18 131/61 (84) 94 03/19/19 22:25 98.9 03/19/19 22:11 Room Air 03/19/19 20:00 100.5 96 18 131/62 (85) 94 Intake and Output 03/19/19 03/20/19 18:59 06:59 Intake Total 600 ml 120 ml Balance 600 ml 120 ml Intake Oral 200 ml 120 ml IV Total 400 ml # Voids 3 2 # Bowel Movements 2 Laboratory Tests 03/19/19 22:30: Urine Color Pale yellow, Urine Appearance Clear, Urine pH 7, Urine Specific [place] 1.005, Urine Protein Negative, Urine Glucose (UA) 4+H, Urine Ketones 1+H , Urine Blood Negative, Urine Nitrite Negative, Urine Bilirubin Negative, Urine Urobilinogen Normal, Urine Leukocyte Esterase Negative, Urine RBC 0, Urine WBC 0 , Urine Squamous Epithelial Cells Occasional, Urine Bacteria None 03/20/19 05:05: White Blood Count 7.9, Red Blood Count 3.29L, Hemoglobin 9.6L, Hematocrit 29.7L , Mean Corpuscular Volume 90, Mean Corpuscular Hemoglobin 29.2, Mean Corpuscular Hemoglobin Concent 32.3, Red Cell Distribution Width 15.2H, Platelet Count 215, Mean Platelet Volume 7.3, Neutrophils (%) (Auto) 79.4H, Lymphocytes (%) (Auto) 11.0L, Monocytes (%) (Auto) 7.5, Eosinophils (%) (Auto) 1.1, Basophils (%) (Auto) 0.9, Sodium Level 136, Potassium Level 3.3L, Chloride Level 101, Carbon Dioxide Level 26, Anion Gap 9, Blood Urea Nitrogen 4L, Creatinine 0.5L, Estimat Glomerular Filtration Rate , Glucose Level 269#H, Calcium Level 8.5, Phosphorus Level 3.1, Magnesium Level 1.7L Height (Feet): 5 Height (Inches): 0.00 Weight (Pounds): 115 General Appearance: no apparent distress Objective no change El Clark MD Mar 20, 2019 16:57
--- NOTE | 2019-03-20 19:24 | NUR ---
HAND-OFF: Report given to Halina MOON. Patient in stable condition.
--- NOTE | 2019-03-20 19:30 | NUR ---
NURSE NOTES: Received report from SARAI Carpenter. Patient is in bed resting and in stable condition. On room air with no signs of distress or SOB. Surgical dressing dry and intact. IV is intact and patent. Bed locked and in lowest position. Call light in reach. Will continue to monitor.
[2019-03-20 20:00] VITALS: BP 132/65
[2019-03-20] MEDS: Fluconazole 100mg tab ORAL SCH (20:52)
[2019-03-20] MEDS: traMADol 50mg tab ORAL PRN (20:54)
[2019-03-21 04:00] VITALS: BP 123/59
[2019-03-21 07:37] LABS: HEMATOCRIT 28.3 % (37.0-47.0); HEMOGLOBIN 9.7 G/DL (12.0-16.0); LYMPHOCYTES % (AUTO) 16.2 % (20.0-45.0); MEAN CORPUSCULAR VOLUME 87 FL (80-99); MONOCYTES % (AUTO) 9.1 % (1.0-10.0); NEUTROPHILS % (AUTO) 72.6 % (45.0-75.0); PLATELET COUNT 270 K/UL (150-450); RED BLOOD COUNT 3.26 M/UL (4.20-5.40); WHITE BLOOD COUNT 9.1 K/UL (4.8-10.8)
[2019-03-21 07:53] LABS: ANION GAP 9 mmol/L (5-15); BLOOD UREA NITROGEN 5 mg/dL (7-18); CALCIUM 8.7 MG/DL (8.5-10.1); CARBON DIOXIDE 24 MMOL/L (21-32); CHLORIDE 100 MMOL/L (98-107); CREATININE 0.6 MG/DL (0.55-1.30); POTASSIUM 4.4 MMOL/L (3.5-5.1); SODIUM 133 MMOL/L (136-145)
[2019-03-21 08:00] VITALS: BP 123/60
--- NOTE | 2019-03-21 08:04 | NUR ---
HAND-OFF: Report given to SARAI Huang.
--- NOTE | 2019-03-21 08:40 | NUR ---
NURSE NOTES: Care taken over for pt. Given am medications. Family is at bedside. Current plan will be followed
[2019-03-21] MEDS: Heparin 5000 units/ml inj SUBQ SCH ×2 (10:08→20:40)
[2019-03-21] MEDS: Megace 400mg/10ml Susp ORAL SCH ×2 (10:08→17:13)
--- NOTE | 2019-03-21 10:43 | Nephrology Progress Note ---
Assessment/Plan Problem List: (1) Perforated abdominal viscus (2) Hypokalemia (3) Hypomagnesemia (4) Diabetes mellitus (5) Anemia Assessment Post lap on 03/10 Low K Low Phos Low Mag Anemia DM h/o HTN Plan add oral hypoglycemics for high BS high K likely hemolysis resolved DC IV start megace for apetite change all to orals Mag and K and Phos IV as needed Anemia claudio Keep BP and BS in check per orders DC planning Subjective ROS Limited/Unobtainable: No Constitutional: Reports: malaise Objective Objective Last 24 Hour Vital Signs Date Time Temp Pulse Resp B/P (MAP) Pulse Ox O2 Delivery O2 Flow Rate FiO2 03/21/19 08:30 95 Room Air 21 03/21/19 04:00 98.7 95 20 123/59 (80) 95 03/20/19 21:00 Room Air 03/20/19 20:00 100.5 103 20 132/65 (87) 95 03/20/19 16:00 97.8 101 21 128/54 (78) 97 03/20/19 12:00 99.1 93 20 109/60 (76) 94 Intake and Output 03/20/19 03/21/19 19:00 07:00 Intake Total 200 ml Balance 200 ml Intake Oral 200 ml # Voids 3 2 # Bowel Movements 3 2 Laboratory Tests 03/21/19 05:35: White Blood Count 9.1, Red Blood Count 3.26L, Hemoglobin 9.7L, Hematocrit 28.3L , Mean Corpuscular Volume 87, Mean Corpuscular Hemoglobin 29.7, Mean Corpuscular Hemoglobin Concent 34.3, Red Cell Distribution Width 15.0H, Platelet Count 270, Mean Platelet Volume 6.8, Neutrophils (%) (Auto) 72.6, Lymphocytes (%) (Auto) 16.2L, Monocytes (%) (Auto) 9.1, Eosinophils (%) (Auto) 1.0, Basophils (%) (Auto) 1.0, Sodium Level 133L, Potassium Level 4.4, Chloride Level 100, Carbon Dioxide Level 24, Anion Gap 9, Blood Urea Nitrogen 5L, Creatinine 0.6, Estimat Glomerular Filtration Rate , Glucose Level 271H, Calcium Level 8.7 Height (Feet): 5 Height (Inches): 0.00 Weight (Pounds): 110 General Appearance: no apparent distress Objective no change El Clark MD Mar 21, 2019 10:43
[2019-03-21] MEDS ORDERED: GlipiZIDE 5mg tab ORAL SCH (10:45)
[2019-03-21 12:00] VITALS: BP 116/57
--- NOTE | 2019-03-21 14:20 | Internal Med Progress Note ---
Subjective Date of Service: Mar 21, 2019 Physician Name Zen Paige Attending Physician Marcos Silva MD Current Medications Medications (Trade) Dose Ordered Sig/Shantelle Route PRN Reason Start Time Stop Time Status Last Admin Dose Admin Acetaminophen (Tylenol) 650 mg Q4H PRN ORAL Mild Pain/Temp > 100.5 03/19/19 16:00 04/18/19 15:59 03/19/19 21:23 Fluconazole (Diflucan) 100 mg Q24H ORAL 03/16/19 20:00 03/23/19 19:59 03/20/19 20:52 Glipizide (Glucotrol) 5 mg BIAC ORAL 03/21/19 16:30 04/20/19 16:29 Heparin Sodium (Porcine) (Heparin 5000 units/ml) 5,000 units EVERY 12 HOURS SUBQ 03/13/19 21:00 04/09/19 20:59 03/21/19 10:08 Megestrol Acetate (Megace) 400 mg TWICE A DAY ORAL 03/19/19 09:30 04/18/19 09:29 03/21/19 10:08 Ondansetron HCl (Zofran) 4 mg Q6H PRN IVP Nausea & Vomiting 03/13/19 19:15 04/09/19 13:14 Pantoprazole (Protonix) 40 mg EVERY 12 HOURS ORAL 03/16/19 21:00 04/15/19 20:59 03/21/19 10:07 Potassium Chloride (K-Dur) 40 meq DAILY ORAL 03/19/19 09:00 04/18/19 08:59 03/21/19 10:08 Tramadol HCl (Ultram) 25 mg Q6H PRN ORAL pain over 4 03/16/19 13:00 03/23/19 12:59 03/20/19 20:54 Allergies: Coded Allergies: No Known Allergies (Unverified , 03/10/19) ROS Limited/Unobtainable: No Constitutional: Reports: no symptoms HEENT: Reports: no symptoms Cardiovascular: Reports: no symptoms Respiratory: Reports: no symptoms Gastrointestinal/Abdominal: Reports: no symptoms Genitourinary: Reports: no symptoms Neurologic/Psychiatric: Reports: no symptoms Subjective 84 YO F admitted with abdominal pain. S/P exploratory laparotomy 03/10/19. Cover for Int Med-Dr Ricardo. Objective Last Vital Signs Date Time Temp Pulse Resp B/P (MAP) Pulse Ox O2 Delivery O2 Flow Rate FiO2 03/21/19 08:30 95 Room Air 21 03/21/19 04:00 98.7 95 20 123/59 (80) 03/15/19 09:00 2.0 Laboratory Tests Test 03/21/19 05:35 White Blood Count 9.1 K/UL (4.8-10.8) Red Blood Count 3.26 M/UL (4.20-5.40) L Hemoglobin 9.7 G/DL (12.0-16.0) L Hematocrit 28.3 % (37.0-47.0) L Mean Corpuscular Volume 87 FL (80-99) Mean Corpuscular Hemoglobin 29.7 PG (27.0-31.0) Mean Corpuscular Hemoglobin Concent 34.3 G/DL (32.0-36.0) Red Cell Distribution Width 15.0 % (11.6-14.8) H Platelet Count 270 K/UL (150-450) Mean Platelet Volume 6.8 FL (6.5-10.1) Neutrophils (%) (Auto) 72.6 % (45.0-75.0) Lymphocytes (%) (Auto) 16.2 % (20.0-45.0) L Monocytes (%) (Auto) 9.1 % (1.0-10.0) Eosinophils (%) (Auto) 1.0 % (0.0-3.0) Basophils (%) (Auto) 1.0 % (0.0-2.0) Sodium Level 133 MMOL/L (136-145) L Potassium Level 4.4 MMOL/L (3.5-5.1) Chloride Level 100 MMOL/L (98-107) Carbon Dioxide Level 24 MMOL/L (21-32) Anion Gap 9 mmol/L (5-15) Blood Urea Nitrogen 5 mg/dL (7-18) L Creatinine 0.6 MG/DL (0.55-1.30) Estimat Glomerular Filtration Rate mL/min (>60) Glucose Level 271 MG/DL (74-106) H Calcium Level 8.7 MG/DL (8.5-10.1) Intake and Output 03/20/19 03/21/19 19:00 07:00 Intake Total 200 ml Balance 200 ml Intake Oral 200 ml # Voids 3 2 # Bowel Movements 3 2 Objective PHYSICAL EXAMINATION: GENERAL: The patient is a well developed, well nourished female who is intubated and sedated. HEENT: Eyes, pupils equal and responsive to light and accommodation. Extraocular movements are intact. NECK: Supple without lymphadenopathy. CHEST: Nasc canula; Few diffuse wheezes bilaterally. Otherwise, without wheezes or rales. CARDIOVASCULAR: Regular rhythm rate. S1-S2 are normal without murmurs, rubs, or gallops. ABDOMEN: NGT; Soft, nontender with decreased bowel sounds. No evidence of hepatosplenomegaly. no rebound or guarding noted. EXTREMITIES: Negative for clubbing, cyanosis, edema. RECTAL/GENITAL: Not performed. NEUROLOGIC: Cranial nerves II through XII are grossly intact without focal deficits. Assessment/Plan Assessment/Plan ASSESSMENT: This is an 84-year-old female. 1. Perforated gastric ulcer 2. Abdominal pain. 3. Nausea with vomiting. 4. Diabetes type 2. 5. Hypertension. 6. Post Op fever-resolved TREATMENT: 1. Perforated gastric ulcer. A General Surgery consultation has been obtained with Dr. Sheth. S/P exploratory laparotomy 03/10/19=perforated Pre pyloric ulcer. Tolerating regular diet; NGT discontinued per surgery 2. Diabetes type 2. NovoLog sliding scale has been instituted. 3. Hypertension. The patient is currently hypotensive. 4. Respiratory failure. S/P extubation 03/12/19. A Pulmonary consultation has been obtained with Dr. Bibiana Pennington. 5. Med/surg 6. Discharge planning-discharge prescriptions written Zen Paige MD Mar 21, 2019 14:20
[2019-03-21 16:00] VITALS: BP 121/63
--- NOTE | 2019-03-21 16:47 | Infectious Diseases Prog Note ---
Assessment/Plan Assessment/Plan Assessment: Perforated pre-pyloric gastric ulcer -s/p UGI series: Negative for postoperative leak -03/10 SP 03/10 SP Exploratory Laparotomy, Abdominal washout. Partial omentectomy. Shane patch for repair of perforated pre-pyloric ulcer. -03/10 CT abd/p: Free intraperitoneal gas. Etiology not completely certain, but gas within and extending from the anterior gastric antral wall is suspicious for a perforated gastric ulcer. Perforated descending colon diverticulitis also possible but deemed much less likely. Free intraperitoneal fluid, presumably related to the above. Fatty liver. Basilar pulmonary parenchymal groundglass opacities. This could indicate pulmonary edema, among other possibilities. Subcentimeter low-attenuation renal lesions, too small to characterize, most likely benign simple cyst. No further follow-up necessary. 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 Intermittent low grade fever- r/o infectious, r/o DVT -03/20 CXR: Subsegmental atelectasis versus infiltrate in the left lung base. -03/19 u/a neg Cdiff neg Mild leukocytosis, SP -u/a neg -CXR: Bilateral basilar atelectatic changes VDRF, post-op; extubated 03/12 DARRON, SP Dm2 HTN Plan: -Cont Fluconazole # /10 for thrush -03/15 SP Zosyn #6 -03/10 SP IV Vancomycin #1, Ancef x1 -f/u cx -Monitor CBC/CMP, temperatures -Sx f/u -wound care per surgical team -aspiration precautions -BCx x2, -V duplex -CBC, CMP am Subjective Allergies: Coded Allergies: No Known Allergies (Unverified , 03/10/19) Subjective Intermittent low grade fever; Tm 100.5 no leukcoytosis Objective Vital Signs Last 24 Hour Vital Signs Date Time Temp Pulse Resp B/P (MAP) Pulse Ox O2 Delivery O2 Flow Rate FiO2 03/21/19 08:30 95 Room Air 21 03/21/19 04:00 98.7 95 20 123/59 (80) 95 03/20/19 21:00 Room Air 03/20/19 20:00 100.5 103 20 132/65 (87) 95 Height (Feet): 5 Height (Inches): 0.00 Weight (Pounds): 110 Objective General appearance: alert, cooperative, no distress, appears stated age Head: Normocephalic, without obvious abnormality, atraumatic Eyes: conjunctivae/corneas clear. PERRL, EOM's intact. Fundi benign Throat: Lips, mucosa, and tongue normal. Teeth and gums normal Neck: supple, symmetrical, trachea midline, no adenopathy, thyroid: not enlarged, symmetric, no tenderness/mass/nodules, no carotid bruit and no JVD Lungs: clear to auscultation bilaterally Heart: regular rate and rhythm, S1, S2 normal, no murmur, click, rub or gallop Abdomen: soft, peritonitis with tender. Bowel sounds normal. No masses, no organomegaly Extremities: extremities normal, atraumatic, no cyanosis or edema Pulses: 2+ and symmetric Skin: Skin color, texture, turgor normal. No rashes or lesions Neurologic: Grossly normal Laboratory Tests Test 03/21/19 05:35 White Blood Count 9.1 K/UL (4.8-10.8) Red Blood Count 3.26 M/UL (4.20-5.40) L Hemoglobin 9.7 G/DL (12.0-16.0) L Hematocrit 28.3 % (37.0-47.0) L Mean Corpuscular Volume 87 FL (80-99) Mean Corpuscular Hemoglobin 29.7 PG (27.0-31.0) Mean Corpuscular Hemoglobin Concent 34.3 G/DL (32.0-36.0) Red Cell Distribution Width 15.0 % (11.6-14.8) H Platelet Count 270 K/UL (150-450) Mean Platelet Volume 6.8 FL (6.5-10.1) Neutrophils (%) (Auto) 72.6 % (45.0-75.0) Lymphocytes (%) (Auto) 16.2 % (20.0-45.0) L Monocytes (%) (Auto) 9.1 % (1.0-10.0) Eosinophils (%) (Auto) 1.0 % (0.0-3.0) Basophils (%) (Auto) 1.0 % (0.0-2.0) Sodium Level 133 MMOL/L (136-145) L Potassium Level 4.4 MMOL/L (3.5-5.1) Chloride Level 100 MMOL/L (98-107) Carbon Dioxide Level 24 MMOL/L (21-32) Anion Gap 9 mmol/L (5-15) Blood Urea Nitrogen 5 mg/dL (7-18) L Creatinine 0.6 MG/DL (0.55-1.30) Estimat Glomerular Filtration Rate mL/min (>60) Glucose Level 271 MG/DL (74-106) H Calcium Level 8.7 MG/DL (8.5-10.1) Current Medications Medications (Trade) Dose Ordered Sig/Shantelle Route PRN Reason Start Time Stop Time Status Last Admin Dose Admin Acetaminophen (Tylenol) 650 mg Q4H PRN ORAL Mild Pain/Temp > 100.5 03/19/19 16:00 04/18/19 15:59 03/19/19 21:23 Fluconazole (Diflucan) 100 mg Q24H ORAL 03/16/19 20:00 03/23/19 19:59 03/20/19 20:52 Glipizide (Glucotrol) 5 mg BIAC ORAL 03/21/19 16:30 04/20/19 16:29 Heparin Sodium (Porcine) (Heparin 5000 units/ml) 5,000 units EVERY 12 HOURS SUBQ 03/13/19 21:00 04/09/19 20:59 03/21/19 10:08 Megestrol Acetate (Megace) 400 mg TWICE A DAY ORAL 03/19/19 09:30 04/18/19 09:29 03/21/19 10:08 Ondansetron HCl (Zofran) 4 mg Q6H PRN IVP Nausea & Vomiting 03/13/19 19:15 04/09/19 13:14 Pantoprazole (Protonix) 40 mg EVERY 12 HOURS ORAL 03/16/19 21:00 04/15/19 20:59 03/21/19 10:07 Potassium Chloride (K-Dur) 40 meq DAILY ORAL 03/19/19 09:00 04/18/19 08:59 03/21/19 10:08 Tramadol HCl (Ultram) 25 mg Q6H PRN ORAL pain over 4 03/16/19 13:00 03/23/19 12:59 03/20/19 20:54 Janette Stallworth M.D. Mar 21, 2019 16:47
[2019-03-21] MEDS: GlipiZIDE 5mg tab ORAL SCH (17:13)
[2019-03-21] MEDS: traMADol 50mg tab ORAL PRN (17:13)
--- NOTE | 2019-03-21 17:15 | NUR ---
NURSE NOTES: Pt rubbing on abdomen states pain is between 4/5 looks at son to answer questions. Adjunct Psychology Faculty Member speaking Macedonian to pt, seeks reassurance from family member. Family member urging pt to take medication, pt reluctant. Required encouraged, to take medication , wound healing and comfort
[2019-03-21 20:14] VITALS: BP 117/47
[2019-03-21] MEDS: Fluconazole 100mg tab ORAL SCH (20:37)
--- NOTE | 2019-03-21 21:16 | NUR ---
HAND-OFF: Report given to Berkley dyer.
[2019-03-21 21:41] VITALS: BP 117/47
--- NOTE | 2019-03-21 23:02 | NUR ---
NURSE NOTE: Pt is A/Ox4, luxembourger speaking. Family is at the bedside. HR was 104 and temp was 101.1 for 1999 VS. Will reassess and monitor. Orders reviewed and physical assessment completed. Pt denies having any pain. Bed is low and locked and the bed alarm is activated. Pt call hoover is within reach.
[2019-03-22 00:07] VITALS: BP 127/75
[2019-03-22 04:05] VITALS: BP 140/75
[2019-03-22] MEDS ORDERED: GlipiZIDE 5mg tab ORAL SCH (06:30)
[2019-03-22] MEDS: GlipiZIDE 5mg tab ORAL SCH ×2 (06:40→17:31)
[2019-03-22] MEDS: traMADol 50mg tab ORAL PRN (06:40)
[2019-03-22 07:00] LABS: ALANINE AMINOTRANSFERASE 27 U/L (12-78); ALBUMIN 1.9 G/DL (3.4-5.0); ALBUMIN/GLOBULIN RATIO 0.5 (1.0-2.7); ALKALINE PHOSPHATASE 237 U/L (46-116); ANION GAP 11 mmol/L (5-15); ASPARTATE AMINO TRANSFERASE 33 U/L (15-37); BILIRUBIN,TOTAL 0.5 MG/DL (0.2-1.0); BLOOD UREA NITROGEN 8 mg/dL (7-18); CALCIUM 8.9 MG/DL (8.5-10.1); CARBON DIOXIDE 22 MMOL/L (21-32); CHLORIDE 103 MMOL/L (98-107); CREATININE 0.6 MG/DL (0.55-1.30); SODIUM 136 MMOL/L (136-145)
[2019-03-22 07:07] LABS: BASOPHILS % (AUTO) 0.8 % (0.0-2.0); EOSINOPHILS % (AUTO) 0.8 % (0.0-3.0); HEMATOCRIT 30.4 % (37.0-47.0); HEMOGLOBIN 9.7 G/DL (12.0-16.0); LYMPHOCYTES % (AUTO) 14.9 % (20.0-45.0); MEAN CORPUSCULAR VOLUME 90 FL (80-99); MONOCYTES % (AUTO) 9.2 % (1.0-10.0); NEUTROPHILS % (AUTO) 74.2 % (45.0-75.0); PLATELET COUNT 345 K/UL (150-450); RED BLOOD COUNT 3.36 M/UL (4.20-5.40); RED CELL DISTRIBUTION WIDTH 15.9 % (11.6-14.8); WHITE BLOOD COUNT 12.1 K/UL (4.8-10.8)
--- NOTE | 2019-03-22 07:37 | NUR ---
NURSE NOTES: WALKING ROUNDS DONE WITH OUTGOING RN. PATIENT AWAKE IN BED.MIDLINE SURGICAL SITE ASSESSED, STS C/D/I. DISCUSSED PLAN OF CARE FOR THE DAY. VERBALIZED UNDERSTANDING. DENIES PAIN. BED IN LOW AND LOCKED POSITION. CALL LIGHT WITHIN REACH. BED ALARM ACTIVATED.
--- NOTE | 2019-03-22 07:55 | NUR ---
HAND-OFF: Report given to Edna. Pt is stable.
[2019-03-22 08:00] VITALS: BP 119/62
[2019-03-22] MEDS: Megace 400mg/10ml Susp ORAL SCH ×2 (09:09→17:31)
[2019-03-22] MEDS: Heparin 5000 units/ml inj SUBQ SCH ×2 (09:11→21:03)
--- NOTE | 2019-03-22 11:48 | Pulmonology Progress Note ---
Assessment/Plan Problems: (1) S/P exploratory laparotomy (2) Perforated abdominal viscus (3) Septic shock (4) Diabetes mellitus (5) Peritonitis Assessment/Plan improving on regular diet dc home Subjective ROS Limited/Unobtainable: No Interval Events: ate breakfast, some panckakes Allergies: Coded Allergies: No Known Allergies (Unverified , 03/10/19) Objective Last 24 Hour Vital Signs Date Time Temp Pulse Resp B/P (MAP) Pulse Ox O2 Delivery O2 Flow Rate FiO2 03/22/19 09:00 Room Air 03/22/19 08:00 98.1 91 16 119/62 (81) 95 03/22/19 07:55 95 Room Air 21 03/22/19 04:05 98.0 100 18 140/75 (96) 99 03/22/19 00:07 99.6 106 18 127/75 (92) 95 03/21/19 21:41 101.1 104 17 117/47 (70) 96 03/21/19 21:00 Room Air 03/21/19 20:00 96 Room Air 21 03/21/19 16:00 98.0 96 17 121/63 (82) 96 03/21/19 12:00 98.0 87 116/57 (76) Intake and Output 03/21/19 03/22/19 19:00 07:00 Intake Total 600 ml 120 ml Balance 600 ml 120 ml Intake Oral 600 ml 120 ml # Voids 3 1 # Bowel Movements 2 4 General Appearance: WD/WN HEENT: normocephalic, atraumatic Respiratory/Chest: chest wall non-tender, normal breath sounds Cardiovascular: normal peripheral pulses Abdomen: normal bowel sounds, soft, non tender Genitourinary: normal external genitalia Skin: no rash Laboratory Tests 03/22/19 05:05: White Blood Count 12.1H, Red Blood Count 3.36L, Hemoglobin 9.7L, Hematocrit 30.4L, Mean Corpuscular Volume 90, Mean Corpuscular Hemoglobin 28.8, Mean Corpuscular Hemoglobin Concent 31.9L, Red Cell Distribution Width 15.9H, Platelet Count 345, Mean Platelet Volume 7.3, Neutrophils (%) (Auto) 74.2, Lymphocytes (%) (Auto) 14.9L, Monocytes (%) (Auto) 9.2, Eosinophils (%) (Auto) 0.8, Basophils (%) (Auto) 0.8, Sodium Level 136, Potassium Level 5.0, Chloride Level 103, Carbon Dioxide Level 22, Anion Gap 11, Blood Urea Nitrogen 8, Creatinine 0.6, Estimat Glomerular Filtration Rate , Glucose Level 305H, Calcium Level 8.9, Total Bilirubin 0.5, Aspartate Amino Transf (AST/SGOT) 33, Alanine Aminotransferase (ALT/SGPT) 27, Alkaline Phosphatase 237H, Total Protein 5.5L, Albumin 1.9L, Globulin 3.6, Albumin/Globulin Ratio 0.5L Current Medications Medications (Trade) Dose Ordered Sig/Shantelle Route PRN Reason Start Time Stop Time Status Last Admin Dose Admin Acetaminophen (Tylenol) 650 mg Q4H PRN ORAL Mild Pain/Temp > 100.5 03/19/19 16:00 04/18/19 15:59 03/19/19 21:23 Fluconazole (Diflucan) 100 mg Q24H ORAL 03/16/19 20:00 03/23/19 19:59 03/21/19 20:37 Glipizide (Glucotrol) 5 mg BIAC ORAL 03/21/19 16:30 04/20/19 16:29 03/22/19 06:40 Heparin Sodium (Porcine) (Heparin 5000 units/ml) 5,000 units EVERY 12 HOURS SUBQ 03/13/19 21:00 04/09/19 20:59 03/22/19 09:11 Megestrol Acetate (Megace) 400 mg TWICE A DAY ORAL 03/19/19 09:30 04/18/19 09:29 03/22/19 09:09 Ondansetron HCl (Zofran) 4 mg Q6H PRN IVP Nausea & Vomiting 03/13/19 19:15 04/09/19 13:14 Pantoprazole (Protonix) 40 mg EVERY 12 HOURS ORAL 03/16/19 21:00 04/15/19 20:59 03/22/19 09:09 Potassium Chloride (K-Dur) 40 meq DAILY ORAL 03/19/19 09:00 04/18/19 08:59 03/22/19 09:09 Tramadol HCl (Ultram) 25 mg Q6H PRN ORAL pain over 4 03/16/19 13:00 03/23/19 12:59 03/22/19 06:40 Bibiana Pennington MD Mar 22, 2019 11:48
--- NOTE | 2019-03-22 11:55 | NUR ---
DISCHARGE PLANNING: NOTE PATIENT TO BE DISCHARGE TO HOME TODAY. CM ORDER NOTED. NO ACCEPTING AGENCY AT THIS TIME D/T PT BEING NON FUNDED. NURSING MADE AWARE. Addendum: 03/22/19 at 1734 by Nallely Pennington CM DC ORDER HELD. SEE ID NOTE.
[2019-03-22 12:00] VITALS: BP 113/67
--- NOTE | 2019-03-22 12:08 | Infectious Diseases Prog Note ---
Assessment/Plan Assessment/Plan Assessment: Perforated pre-pyloric gastric ulcer -s/p UGI series: Negative for postoperative leak -03/10 SP 03/10 SP Exploratory Laparotomy, Abdominal washout. Partial omentectomy. Shane patch for repair of perforated pre-pyloric ulcer. -03/10 CT abd/p: Free intraperitoneal gas. Etiology not completely certain, but gas within and extending from the anterior gastric antral wall is suspicious for a perforated gastric ulcer. Perforated descending colon diverticulitis also possible but deemed much less likely. Free intraperitoneal fluid, presumably related to the above. Fatty liver. Basilar pulmonary parenchymal groundglass opacities. This could indicate pulmonary edema, among other possibilities. Subcentimeter low-attenuation renal lesions, too small to characterize, most likely benign simple cyst. No further follow-up necessary. 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 Fever- r/o infectious, r/o DVT -03/20 CXR: Subsegmental atelectasis versus infiltrate in the left lung base. -03/19 u/a neg Cdiff neg Mild leukocytosis, SP -u/a neg -CXR: Bilateral basilar atelectatic changes VDRF, post-op; extubated 03/12 DARRON, SP Dm2 HTN Plan: -Cont Fluconazole # 04/28 for thrush -Start empiric Cefepime -03/15 SP Zosyn #6 -03/10 SP IV Vancomycin #1, Ancef x1 -f/u cx -Monitor CBC/CMP, temperatures -Sx f/u -wound care per surgical team -aspiration precautions -f/u BCx x2, V duplex -u/a w/ reflex, CXR Subjective Allergies: Coded Allergies: No Known Allergies (Unverified , 03/10/19) Subjective Tm 101.5 mild leukocytosis Bcx p Objective Vital Signs Last 24 Hour Vital Signs Date Time Temp Pulse Resp B/P (MAP) Pulse Ox O2 Delivery O2 Flow Rate FiO2 03/22/19 09:00 Room Air 03/22/19 08:00 98.1 91 16 119/62 (81) 95 03/22/19 07:55 95 Room Air 21 03/22/19 04:05 98.0 100 18 140/75 (96) 99 03/22/19 00:07 99.6 106 18 127/75 (92) 95 03/21/19 21:41 101.1 104 17 117/47 (70) 96 03/21/19 21:00 Room Air 03/21/19 20:00 96 Room Air 21 03/21/19 16:00 98.0 96 17 121/63 (82) 96 Height (Feet): 5 Height (Inches): 0.00 Weight (Pounds): 115 Objective General appearance: alert, cooperative, no distress, appears stated age Head: Normocephalic, without obvious abnormality, atraumatic Eyes: conjunctivae/corneas clear. PERRL, EOM's intact. Fundi benign Throat: Lips, mucosa, and tongue normal. Teeth and gums normal Neck: supple, symmetrical, trachea midline, no adenopathy, thyroid: not enlarged, symmetric, no tenderness/mass/nodules, no carotid bruit and no JVD Lungs: clear to auscultation bilaterally Heart: regular rate and rhythm, S1, S2 normal, no murmur, click, rub or gallop Abdomen: soft, peritonitis with tender. Bowel sounds normal. No masses, no organomegaly Extremities: extremities normal, atraumatic, no cyanosis or edema Pulses: 2+ and symmetric Skin: Skin color, texture, turgor normal. No rashes or lesions Neurologic: Grossly normal Laboratory Tests Test 03/22/19 05:05 White Blood Count 12.1 K/UL (4.8-10.8) H Red Blood Count 3.36 M/UL (4.20-5.40) L Hemoglobin 9.7 G/DL (12.0-16.0) L Hematocrit 30.4 % (37.0-47.0) L Mean Corpuscular Volume 90 FL (80-99) Mean Corpuscular Hemoglobin 28.8 PG (27.0-31.0) Mean Corpuscular Hemoglobin Concent 31.9 G/DL (32.0-36.0) L Red Cell Distribution Width 15.9 % (11.6-14.8) H Platelet Count 345 K/UL (150-450) Mean Platelet Volume 7.3 FL (6.5-10.1) Neutrophils (%) (Auto) 74.2 % (45.0-75.0) Lymphocytes (%) (Auto) 14.9 % (20.0-45.0) L Monocytes (%) (Auto) 9.2 % (1.0-10.0) Eosinophils (%) (Auto) 0.8 % (0.0-3.0) Basophils (%) (Auto) 0.8 % (0.0-2.0) Sodium Level 136 MMOL/L (136-145) Potassium Level 5.0 MMOL/L (3.5-5.1) Chloride Level 103 MMOL/L (98-107) Carbon Dioxide Level 22 MMOL/L (21-32) Anion Gap 11 mmol/L (5-15) Blood Urea Nitrogen 8 mg/dL (7-18) Creatinine 0.6 MG/DL (0.55-1.30) Estimat Glomerular Filtration Rate mL/min (>60) Glucose Level 305 MG/DL (74-106) H Calcium Level 8.9 MG/DL (8.5-10.1) Total Bilirubin 0.5 MG/DL (0.2-1.0) Aspartate Amino Transf (AST/SGOT) 33 U/L (15-37) Alanine Aminotransferase (ALT/SGPT) 27 U/L (12-78) Alkaline Phosphatase 237 U/L (46-116) H Total Protein 5.5 G/DL (6.4-8.2) L Albumin 1.9 G/DL (3.4-5.0) L Globulin 3.6 g/dL Albumin/Globulin Ratio 0.5 (1.0-2.7) L Current Medications Medications (Trade) Dose Ordered Sig/Shantelle Route PRN Reason Start Time Stop Time Status Last Admin Dose Admin Acetaminophen (Tylenol) 650 mg Q4H PRN ORAL Mild Pain/Temp > 100.5 03/19/19 16:00 04/18/19 15:59 03/19/19 21:23 Fluconazole (Diflucan) 100 mg Q24H ORAL 03/16/19 20:00 03/23/19 19:59 03/21/19 20:37 Glipizide (Glucotrol) 5 mg BIAC ORAL 03/21/19 16:30 04/20/19 16:29 03/22/19 06:40 Heparin Sodium (Porcine) (Heparin 5000 units/ml) 5,000 units EVERY 12 HOURS SUBQ 03/13/19 21:00 04/09/19 20:59 03/22/19 09:11 Megestrol Acetate (Megace) 400 mg TWICE A DAY ORAL 03/19/19 09:30 04/18/19 09:29 03/22/19 09:09 Ondansetron HCl (Zofran) 4 mg Q6H PRN IVP Nausea & Vomiting 03/13/19 19:15 04/09/19 13:14 Pantoprazole (Protonix) 40 mg EVERY 12 HOURS ORAL 03/16/19 21:00 04/15/19 20:59 03/22/19 09:09 Potassium Chloride (K-Dur) 40 meq DAILY ORAL 03/19/19 09:00 04/18/19 08:59 03/22/19 09:09 Tramadol HCl (Ultram) 25 mg Q6H PRN ORAL pain over 4 03/16/19 13:00 03/23/19 12:59 03/22/19 06:40 Janette Stallworth M.D. Mar 22, 2019 12:08
--- NOTE | 2019-03-22 12:46 | Nephrology Progress Note ---
Assessment/Plan Problem List: (1) Perforated abdominal viscus (2) Hypokalemia (3) Hypomagnesemia (4) Diabetes mellitus (5) Anemia Assessment Post lap on 03/10 Low K Low Phos Low Mag Anemia DM h/o HTN Plan add oral hypoglycemics for high BS high K likely hemolysis resolved DC IV start megace for apetite change all to orals Mag and K and Phos IV as needed Anemia claudio Keep BP and BS in check per orders DC planning Subjective ROS Limited/Unobtainable: No Constitutional: Reports: malaise Objective Objective Last 24 Hour Vital Signs Date Time Temp Pulse Resp B/P (MAP) Pulse Ox O2 Delivery O2 Flow Rate FiO2 03/22/19 12:00 98.3 95 17 113/67 (82) 95 03/22/19 09:00 Room Air 03/22/19 08:00 98.1 91 16 119/62 (81) 95 03/22/19 07:55 95 Room Air 21 03/22/19 04:05 98.0 100 18 140/75 (96) 99 03/22/19 00:07 99.6 106 18 127/75 (92) 95 03/21/19 21:41 101.1 104 17 117/47 (70) 96 03/21/19 21:00 Room Air 03/21/19 20:00 96 Room Air 21 03/21/19 16:00 98.0 96 17 121/63 (82) 96 Intake and Output 03/21/19 03/22/19 19:00 07:00 Intake Total 600 ml 120 ml Balance 600 ml 120 ml Intake Oral 600 ml 120 ml # Voids 3 1 # Bowel Movements 2 4 Laboratory Tests 03/22/19 05:05: White Blood Count 12.1H, Red Blood Count 3.36L, Hemoglobin 9.7L, Hematocrit 30.4L, Mean Corpuscular Volume 90, Mean Corpuscular Hemoglobin 28.8, Mean Corpuscular Hemoglobin Concent 31.9L, Red Cell Distribution Width 15.9H, Platelet Count 345, Mean Platelet Volume 7.3, Neutrophils (%) (Auto) 74.2, Lymphocytes (%) (Auto) 14.9L, Monocytes (%) (Auto) 9.2, Eosinophils (%) (Auto) 0.8, Basophils (%) (Auto) 0.8, Sodium Level 136, Potassium Level 5.0, Chloride Level 103, Carbon Dioxide Level 22, Anion Gap 11, Blood Urea Nitrogen 8, Creatinine 0.6, Estimat Glomerular Filtration Rate , Glucose Level 305H, Calcium Level 8.9, Total Bilirubin 0.5, Aspartate Amino Transf (AST/SGOT) 33, Alanine Aminotransferase (ALT/SGPT) 27, Alkaline Phosphatase 237H, Total Protein 5.5L, Albumin 1.9L, Globulin 3.6, Albumin/Globulin Ratio 0.5L Height (Feet): 5 Height (Inches): 0.00 Weight (Pounds): 115 General Appearance: no apparent distress Objective no change El Clark MD Mar 22, 2019 12:46
[2019-03-22] MEDS: Cefepime HCl 1 GM in D5W 55 ML IVPB SCH ×2 (13:00→22:00)
--- NOTE | 2019-03-22 15:04 | NUR ---
RD ASSESSMENT & RECOMMENDATIONS SEE CARE ACTIVITY FOR COMPLETE ASSESSMENT DAILY ESTIMATED NEEDS: Needs based on Surgery, DM / 53.6kg 25-35 kcals/kg 5730-2574 total kcals 1-2 g protein/kg 54-107 g total protein 25-30 mL/kg 5420-1616 total fluid mLs NUTRITION DIAGNOSIS: * Altered GI function R/T perforated gastric ulcer as evidenced by s/p ex lap, abdominal washout, partial omentectomy, imelda patch for repair of perforated pre-pyloric ulcer, diet now advanced to regular. * Altered nutrition related lab values R/T diabetes, clinical condition as evidenced by elev BGs (305, 271, 269), A1C 10.2, urine glucose 4+, low phos and mg, elev triglycerides (300). CURRENT DIET:Regular + Glucerna TID PO DIET RECOMMENDATIONS: EMELYN CARPENTER LOW DIET ADDITIONAL RECOMMENDATIONS: * Accucheck w/ NISS: BGs elev in the 200's and 300's * Calibrated bedscale wt for accurate CBW * Monitor lytes * Monitor PO intake closely : Megace 400mg BID added on 03/19 .
[2019-03-22 16:00] VITALS: BP 130/64
--- NOTE | 2019-03-22 16:21 | Diagnostic Imaging Report ---
Indication: Cough Technique: One view of the chest Comparison: 03/20/2019 Findings: There is some atelectasis or scarring at the left lung base and right infrahilar region. The heart is borderline enlarged. Impression: Cardiomegaly. Bilateral basilar atelectasis or scarring. Decreased left pleural fluid
--- NOTE | 2019-03-22 16:43 | Internal Med Progress Note ---
Subjective Date of Service: Mar 22, 2019 Physician Name Zen Paige Attending Physician Marcos Silva MD Current Medications Medications (Trade) Dose Ordered Sig/Shantelle Route PRN Reason Start Time Stop Time Status Last Admin Dose Admin Acetaminophen (Tylenol) 650 mg Q4H PRN ORAL Mild Pain/Temp > 100.5 03/19/19 16:00 04/18/19 15:59 03/19/19 21:23 Cefepime HCl 1 gm/ Dextrose 55 ml @ 110 mls/hr EVERY 12 HOURS IVPB 03/22/19 13:00 03/29/19 12:59 03/22/19 13:00 Fluconazole (Diflucan) 100 mg Q24H ORAL 03/16/19 20:00 03/23/19 19:59 03/21/19 20:37 Glipizide (Glucotrol) 5 mg BIAC ORAL 03/21/19 16:30 04/20/19 16:29 03/22/19 06:40 Heparin Sodium (Porcine) (Heparin 5000 units/ml) 5,000 units EVERY 12 HOURS SUBQ 03/13/19 21:00 04/09/19 20:59 03/22/19 09:11 Megestrol Acetate (Megace) 400 mg TWICE A DAY ORAL 03/19/19 09:30 04/18/19 09:29 03/22/19 09:09 Ondansetron HCl (Zofran) 4 mg Q6H PRN IVP Nausea & Vomiting 03/13/19 19:15 04/09/19 13:14 Pantoprazole (Protonix) 40 mg EVERY 12 HOURS ORAL 03/16/19 21:00 04/15/19 20:59 03/22/19 09:09 Tramadol HCl (Ultram) 25 mg Q6H PRN ORAL pain over 4 03/16/19 13:00 03/23/19 12:59 03/22/19 06:40 Allergies: Coded Allergies: No Known Allergies (Unverified , 03/10/19) ROS Limited/Unobtainable: No Constitutional: Reports: no symptoms HEENT: Reports: no symptoms Cardiovascular: Reports: no symptoms Respiratory: Reports: no symptoms Gastrointestinal/Abdominal: Reports: no symptoms Genitourinary: Reports: no symptoms Neurologic/Psychiatric: Reports: no symptoms Subjective 84 YO F admitted with abdominal pain. S/P exploratory laparotomy 03/10/19. Cover for Int [facility]-Dr Silva. Objective Last Vital Signs Date Time Temp Pulse Resp B/P (MAP) Pulse Ox O2 Delivery O2 Flow Rate FiO2 03/22/19 12:00 98.3 95 17 113/67 (82) 95 03/22/19 09:00 Room Air 03/22/19 07:55 21 03/15/19 09:00 2.0 Laboratory Tests Test 03/22/19 05:05 White Blood Count 12.1 K/UL (4.8-10.8) H Red Blood Count 3.36 M/UL (4.20-5.40) L Hemoglobin 9.7 G/DL (12.0-16.0) L Hematocrit 30.4 % (37.0-47.0) L Mean Corpuscular Volume 90 FL (80-99) Mean Corpuscular Hemoglobin 28.8 PG (27.0-31.0) Mean Corpuscular Hemoglobin Concent 31.9 G/DL (32.0-36.0) L Red Cell Distribution Width 15.9 % (11.6-14.8) H Platelet Count 345 K/UL (150-450) Mean Platelet Volume 7.3 FL (6.5-10.1) Neutrophils (%) (Auto) 74.2 % (45.0-75.0) Lymphocytes (%) (Auto) 14.9 % (20.0-45.0) L Monocytes (%) (Auto) 9.2 % (1.0-10.0) Eosinophils (%) (Auto) 0.8 % (0.0-3.0) Basophils (%) (Auto) 0.8 % (0.0-2.0) Sodium Level 136 MMOL/L (136-145) Potassium Level 5.0 MMOL/L (3.5-5.1) Chloride Level 103 MMOL/L (98-107) Carbon Dioxide Level 22 MMOL/L (21-32) Anion Gap 11 mmol/L (5-15) Blood Urea Nitrogen 8 mg/dL (7-18) Creatinine 0.6 MG/DL (0.55-1.30) Estimat Glomerular Filtration Rate mL/min (>60) Glucose Level 305 MG/DL (74-106) H Calcium Level 8.9 MG/DL (8.5-10.1) Total Bilirubin 0.5 MG/DL (0.2-1.0) Aspartate Amino Transf (AST/SGOT) 33 U/L (15-37) Alanine Aminotransferase (ALT/SGPT) 27 U/L (12-78) Alkaline Phosphatase 237 U/L (46-116) H Total Protein 5.5 G/DL (6.4-8.2) L Albumin 1.9 G/DL (3.4-5.0) L Globulin 3.6 g/dL Albumin/Globulin Ratio 0.5 (1.0-2.7) L Intake and Output 03/21/19 03/22/19 18:59 06:59 Intake Total 600 ml 120 ml Balance 600 ml 120 ml Intake Oral 600 ml 120 ml # Voids 3 1 # Bowel Movements 2 4 Objective PHYSICAL EXAMINATION: GENERAL: The patient is a well developed, well nourished female who is intubated and sedated. HEENT: Eyes, pupils equal and responsive to light and accommodation. Extraocular movements are intact. NECK: Supple without lymphadenopathy. CHEST: Nasc canula; Few diffuse wheezes bilaterally. Otherwise, without wheezes or rales. CARDIOVASCULAR: Regular rhythm rate. S1-S2 are normal without murmurs, rubs, or gallops. ABDOMEN: NGT; Soft, nontender with decreased bowel sounds. No evidence of hepatosplenomegaly. no rebound or guarding noted. EXTREMITIES: Negative for clubbing, cyanosis, edema. RECTAL/GENITAL: Not performed. NEUROLOGIC: Cranial nerves II through XII are grossly intact without focal deficits. Assessment/Plan Assessment/Plan ASSESSMENT: This is an 84-year-old female. 1. Perforated gastric ulcer 2. Abdominal pain. 3. Nausea with vomiting. 4. Diabetes type 2. 5. Hypertension. 6. Post Op fever-resolved TREATMENT: 1. Perforated gastric ulcer. A General Surgery consultation has been obtained with Dr. Sheth. S/P exploratory laparotomy 03/10/19=perforated Pre pyloric ulcer. Tolerating regular diet; NGT discontinued per surgery 2. Diabetes type 2. NovoLog sliding scale has been instituted. 3. Hypertension. The patient is currently hypotensive. 4. Respiratory failure. S/P extubation 03/12/19. A Pulmonary consultation has been obtained with Dr. Bibiana Pennington. 5. Med/surg 6. Discharge home today-No accepting home health agency- See discharge planning note. Discharge prescriptions written Zen Paige MD Mar 22, 2019 16:43
--- NOTE | 2019-03-22 16:55 | NUR ---
NURSE NOTES: PATIENT UP TO CHAIR A FEW TIMES TODAY. REFUSED TO AMBULATE WITH PHYSICAL THERAPY. FAMILY AWARE. APPETITE POOR. WILL CONTINUE TO ENCOURAGE PPO INTAKE. USING I/S INSTRUCTED.
--- NOTE | 2019-03-22 17:30 | NUR ---
NURSE NOTES: SON AND DAUGHTER AT BEDSIDE. STATES THEY HAVE NOTICED THEIR MOTHER HAS BEEN NON-VERBAL AT TIMES WITH A VERY POOR APPETITE UNABLE TO FOLLOW COMMANDS AND HAS BECAME WEAKER. PT REFUSED P.T TODAY. SAT IN CHAIR A FEW TIMES BUT NOT AWARE WHEN SHE HAS TO USE THE BATHROOM. PER FAMILY THESE AR E NEW EVENTS. VSS.AFEBRILE TODAY. PLACED CALL TO DR. LARRY MCCULLOUGH REPORT THESES EVENTS. NEW ORDERS RECEIVED. FAMILY MADE AWARE. BE DIN LOW AND LOCKED POSITION CALL LIGHT WITHIN REACH.
--- NOTE | 2019-03-22 17:33 | NUR ---
CASE MANAGEMENT: REVIEW 03/22/2019 SI:PERFORATED VISCUS. T 98.6 HR 109 RR 17 B/P 130/64 SATS 96% ON RA WBC 13.1 GLU 305 ALP 237 IS: ZOSYN IV Q8H PROTONIX IV BID FLUCONAZOLE IV Q24H KCL IV @ 50 mL/HR MED/SURG DCP: PATIENT TO BE DISCHARGED TO HOME ONCE MEDICALLY CLEARED.
--- NOTE | 2019-03-22 18:28 | Diagnostic Imaging Report ---
Indications: Altered mental status Technique: Spiral acquisitions obtained through the brain. Angled axial and coronal 5 x 5 mm slices were reconstructed. Total dose length product 1330.25 mGycm. CTDI vol(s) 70.38 mGy. Dose reduction achieved using automated exposure control Comparison: None. Findings: There is age-related enlargement of the ventricles and extra axial CSF spaces. There is mild periventricular deep white matter low-attenuation, consistent with chronic deep white matter small vessel ischemic change. No acute intracranial hemorrhage or edema. No mass effect or midline shift. There is evidence of empty sella. There is evidence of prior bilateral cataract surgery. Intact calvarium. The mastoids are clear. The included sinuses are clear. Impression: Chronic and age-related changes Negative for acute intracranial bleed or mass effect Incidental findings as noted This agrees with the preliminary interpretation provided overnight by [facility] teleradiology service. The CT scanner at [facility] is accredited by the [employer] and the scans are performed using protocols designed to limit radiation exposure to as low as reasonably achievable to attain images of sufficient resolution adequate for diagnostic evaluation.
--- NOTE | 2019-03-22 19:15 | NUR ---
HAND-OFF: Report given to IESHA AYALA RN.
--- NOTE | 2019-03-22 19:30 | NUR ---
NURSE NOTES: Received report from SARAI Bishop. Patient speaks [place]. Patient awake and able to verbalized her needs with short words. Breathing unlabored without distress, discomfort, or sob. Denies pain at this time. Bed placed at the lowest with alarm, brake, and siderails up for safety. Call light placed within reach. Will continue to monitor and provide care as ordered.
[2019-03-22 20:00] VITALS: BP 118/50
[2019-03-22] MEDS: Fluconazole 100mg tab ORAL SCH (20:15)
[2019-03-23] VITALS (7 sets, daily range): BP systolic 104–136; BP diastolic 51–65
[2019-03-23 00:43] LABS: APPEARANCE,URINE CLEAR; BILIRUBIN, URINE NEGATIVE (NEGATIVE); COLOR,URINE PALE YELLOW; GLUCOSE, URINE (UA) 4+ (NEGATIVE); KETONES,URINE 1+ (NEGATIVE); LEUKOCYTE ESTERASE ,URINE NEGATIVE (NEGATIVE); NITRITE,URINE NEGATIVE (NEGATIVE); PH,URINE 8 (4.5-8.0); PROTEIN,URINE NEGATIVE (NEGATIVE); UROBILINOGEN,URINE NORMAL MG/DL (0.0-1.0)
[2019-03-23] MEDS: GlipiZIDE 5mg tab ORAL SCH ×2 (06:00→16:35)
[2019-03-23 06:16] LABS: BASOPHILS % (AUTO) 1.1 % (0.0-2.0); EOSINOPHILS % (AUTO) 1.1 % (0.0-3.0); HEMATOCRIT 29.2 % (37.0-47.0); HEMOGLOBIN 9.2 G/DL (12.0-16.0); MEAN CORPUSCULAR VOLUME 91 FL (80-99); MONOCYTES % (AUTO) 9.7 % (1.0-10.0); NEUTROPHILS % (AUTO) 78.1 % (45.0-75.0); PLATELET COUNT 388 K/UL (150-450); RED BLOOD COUNT 3.21 M/UL (4.20-5.40); WHITE BLOOD COUNT 13.9 K/UL (4.8-10.8)
[2019-03-23 06:19] LABS: ANION GAP 10 mmol/L (5-15); BLOOD UREA NITROGEN 10 mg/dL (7-18); CALCIUM 9.1 MG/DL (8.5-10.1); CARBON DIOXIDE 22 MMOL/L (21-32); CHLORIDE 105 MMOL/L (98-107); CREATININE 0.6 MG/DL (0.55-1.30); POTASSIUM 4.4 MMOL/L (3.5-5.1); SODIUM 137 MMOL/L (136-145)
--- NOTE | 2019-03-23 07:30 | NUR ---
HAND-OFF: Report given to SARAI Bishop.
[2019-03-23 07:34] LABS: ALANINE AMINOTRANSFERASE 25 U/L (12-78); ALBUMIN 1.8 G/DL (3.4-5.0); ALKALINE PHOSPHATASE 234 U/L (46-116); ASPARTATE AMINO TRANSFERASE 31 U/L (15-37); BILIRUBIN,DIRECT 0.2 MG/DL (0.0-0.3); BILIRUBIN,TOTAL 0.5 MG/DL (0.2-1.0)
[2019-03-23] MEDS: Cefepime HCl 1 GM in D5W 55 ML IVPB SCH ×2 (09:18→21:52)
[2019-03-23] MEDS: Megace 400mg/10ml Susp ORAL SCH ×2 (09:18→18:22)
[2019-03-23] MEDS: Heparin 5000 units/ml inj SUBQ SCH ×2 (09:20→21:56)
--- NOTE | 2019-03-23 09:24 | Nephrology Progress Note ---
Assessment/Plan Problem List: (1) Perforated abdominal viscus (2) Hypokalemia (3) Hypomagnesemia (4) Diabetes mellitus (5) Anemia Assessment Post lap on 03/10 Low K Low Phos Low Mag Anemia DM h/o HTN Plan add oral hypoglycemics for high BS high K likely hemolysis resolved DC IV start megace for apetite change all to orals Mag and K and Phos IV as needed Anemia claudio Keep BP and BS in check per orders DC planning Subjective ROS Limited/Unobtainable: No Objective Objective Last 24 Hour Vital Signs Date Time Temp Pulse Resp B/P (MAP) Pulse Ox O2 Delivery O2 Flow Rate FiO2 03/23/19 08:00 98.1 103 18 117/62 (80) 95 03/23/19 05:55 94 127/65 (85) 03/23/19 04:00 99.1 99 18 118/51 (73) 94 03/23/19 00:00 98.9 96 16 115/53 (73) 95 03/22/19 21:13 96 Room Air 21 03/22/19 21:00 Room Air 03/22/19 20:00 99.4 101 17 118/50 (72) 94 03/22/19 16:00 98.6 109 17 130/64 (86) 96 03/22/19 12:00 98.3 95 17 113/67 (82) 95 Intake and Output 03/22/19 03/23/19 18:59 06:59 Intake Total 55 ml 415 ml Balance 55 ml 415 ml Intake Oral 360 ml IV Total 55 ml 55 ml # Voids 6 4 # Bowel Movements 1 Laboratory Tests 03/22/19 22:55: Urine Color Pale yellow, Urine Appearance Clear, Urine pH 8, Urine Specific [place] 1.010, Urine Protein Negative, Urine Glucose (UA) 4+H, Urine Ketones 1+H , Urine Blood Negative, Urine Nitrite Negative, Urine Bilirubin Negative, Urine Urobilinogen Normal, Urine Leukocyte Esterase Negative 03/23/19 05:40: White Blood Count 13.9H, Red Blood Count 3.21L, Hemoglobin 9.2L, Hematocrit 29.2L, Mean Corpuscular Volume 91, Mean Corpuscular Hemoglobin 28.7, Mean Corpuscular Hemoglobin Concent 31.5L, Red Cell Distribution Width 16.0H, Platelet Count 388, Mean Platelet Volume 7.0, Neutrophils (%) (Auto) 78.1H, Lymphocytes (%) (Auto) 10.0L, Monocytes (%) (Auto) 9.7, Eosinophils (%) (Auto) 1.1, Basophils (%) (Auto) 1.1, Sodium Level 137, Potassium Level 4.4, Chloride Level 105, Carbon Dioxide Level 22, Anion Gap 10, Blood Urea Nitrogen 10, Creatinine 0.6, Estimat Glomerular Filtration Rate , Glucose Level 332H, Calcium Level 9.1, Phosphorus Level 3.0, Magnesium Level 1.6L, Total Bilirubin 0.5, Direct Bilirubin 0.2, Aspartate Amino Transf (AST/SGOT) 31, Alanine Aminotransferase (ALT/SGPT) 25, Alkaline Phosphatase 234H, Total Protein 5.4L, Albumin 1.8L Height (Feet): 5 Height (Inches): 0.00 Weight (Pounds): 103 General Appearance: no apparent distress Cardiovascular: normal rate Respiratory/Chest: lungs clear Abdomen: distended Objective no change El Clark MD Mar 23, 2019 09:24
[2019-03-23] MEDS: traMADol 50mg tab ORAL PRN (10:31)
--- NOTE | 2019-03-23 10:43 | NUR ---
CASE MANAGEMENT: REVIEW 03/23/2019 SI:PERFORATED VISCUS. T 98.1 HR 103 RR 18 B/P 117/62 SATS 95% ON RA WBC 13.9 GLU 332 MG 1.6 ALP 234 IS: ZOSYN IV Q8H PROTONIX IV BID FLUCONAZOLE IV Q24H KCL IV @ 50 mL/HR MED/SURG DCP: PATIENT TO BE DISCHARGED TO HOME ONCE MEDICALLY CLEARED.
[2019-03-23] MEDS: NovoLOG Insulin Flexpen SUBQ SCH ×3 (11:36→21:57)
--- NOTE | 2019-03-23 12:00 | NUR ---
NURSE NOTES: ACCUCHECK TAKENED 415. ADMINISTERED 12 UNITS PER SLIDING SCALE. NOTIFIED DR. DWYER. ORDER RECEIVED TO ADMINISTER LEVIMIR 10 UNIT SUBCUTE. PATIENT AND FAMILY AWARE.
--- NOTE | 2019-03-23 12:09 | Internal Med Progress Note ---
Subjective Date of Service: Mar 23, 2019 Physician Name Zen Paige Attending Physician Marcos Silva MD Current Medications Medications (Trade) Dose Ordered Sig/Shantelle Route PRN Reason Start Time Stop Time Status Last Admin Dose Admin Acetaminophen (Tylenol) 650 mg Q4H PRN ORAL Mild Pain/Temp > 100.5 03/19/19 16:00 04/18/19 15:59 03/19/19 21:23 Cefepime HCl 1 gm/ Dextrose 55 ml @ 110 mls/hr EVERY 12 HOURS IVPB 03/22/19 13:00 03/29/19 12:59 03/23/19 09:18 Dextrose (Dextrose 50%) 25 ml Q30M PRN IV Hypoglycemia 03/23/19 08:45 04/22/19 08:44 Dextrose (Dextrose 50%) 50 ml Q30M PRN IV Hypoglycemia 03/23/19 08:45 04/22/19 08:44 Fluconazole (Diflucan) 100 mg Q24H ORAL 03/16/19 20:00 03/23/19 19:59 03/22/19 20:15 Glipizide (Glucotrol) 5 mg BIAC ORAL 03/21/19 16:30 04/20/19 16:29 03/23/19 06:00 Heparin Sodium (Porcine) (Heparin 5000 units/ml) 5,000 units EVERY 12 HOURS SUBQ 03/13/19 21:00 04/09/19 20:59 03/23/19 09:20 Insulin Aspart (NovoLOG) BEFORE MEALS AND HS SUBQ 03/23/19 11:30 04/22/19 11:29 03/23/19 11:36 Insulin Detemir (Levemir) 10 units ONCE ONCE SUBQ 03/23/19 13:00 03/23/19 13:01 Magnesium Sulfate 100 ml @ 100 mls/hr Q1H IVPB 03/23/19 10:00 03/23/19 13:59 03/23/19 11:33 Megestrol Acetate (Megace) 400 mg TWICE A DAY ORAL 03/19/19 09:30 04/18/19 09:29 03/23/19 09:18 Nateglinide (Starlix) 120 mg TIAC ORAL 03/23/19 11:30 04/22/19 11:29 03/23/19 11:33 Ondansetron HCl (Zofran) 4 mg Q6H PRN IVP Nausea & Vomiting 03/13/19 19:15 04/09/19 13:14 Pantoprazole (Protonix) 40 mg EVERY 12 HOURS ORAL 03/16/19 21:00 04/15/19 20:59 03/23/19 09:18 Tramadol HCl (Ultram) 25 mg Q6H PRN ORAL pain over 4 03/16/19 13:00 03/23/19 12:59 03/23/19 10:31 Allergies: Coded Allergies: No Known Allergies (Unverified , 03/10/19) ROS Limited/Unobtainable: No Constitutional: Reports: no symptoms HEENT: Reports: no symptoms Cardiovascular: Reports: no symptoms Respiratory: Reports: no symptoms Gastrointestinal/Abdominal: Reports: no symptoms Genitourinary: Reports: no symptoms Neurologic/Psychiatric: Reports: no symptoms Subjective 84 YO F admitted with abdominal pain. S/P exploratory laparotomy 03/10/19. Cover for Int [facility]-Dr Silva. Objective Last Vital Signs Date Time Temp Pulse Resp B/P (MAP) Pulse Ox O2 Delivery O2 Flow Rate FiO2 03/23/19 11:01 98.1 03/23/19 09:00 Room Air 03/23/19 08:00 103 18 117/62 (80) 95 03/22/19 21:13 21 03/15/19 09:00 2.0 Laboratory Tests Test 03/22/19 22:55 03/23/19 05:40 Urine Color Pale yellow Urine Appearance Clear Urine pH 8 (4.5-8.0) Urine Specific [place] 1.010 (1.005-1.035) Urine Protein Negative (NEGATIVE) Urine Glucose (UA) 4+ (NEGATIVE) H Urine Ketones 1+ (NEGATIVE) H Urine Blood Negative (NEGATIVE) Urine Nitrite Negative (NEGATIVE) Urine Bilirubin Negative (NEGATIVE) Urine Urobilinogen Normal MG/DL (0.0-1.0) Urine Leukocyte Esterase Negative (NEGATIVE) White Blood Count 13.9 K/UL (4.8-10.8) H Red Blood Count 3.21 M/UL (4.20-5.40) L Hemoglobin 9.2 G/DL (12.0-16.0) L Hematocrit 29.2 % (37.0-47.0) L Mean Corpuscular Volume 91 FL (80-99) Mean Corpuscular Hemoglobin 28.7 PG (27.0-31.0) Mean Corpuscular Hemoglobin Concent 31.5 G/DL (32.0-36.0) L Red Cell Distribution Width 16.0 % (11.6-14.8) H Platelet Count 388 K/UL (150-450) Mean Platelet Volume 7.0 FL (6.5-10.1) Neutrophils (%) (Auto) 78.1 % (45.0-75.0) H Lymphocytes (%) (Auto) 10.0 % (20.0-45.0) L Monocytes (%) (Auto) 9.7 % (1.0-10.0) Eosinophils (%) (Auto) 1.1 % (0.0-3.0) Basophils (%) (Auto) 1.1 % (0.0-2.0) Sodium Level 137 MMOL/L (136-145) Potassium Level 4.4 MMOL/L (3.5-5.1) Chloride Level 105 MMOL/L (98-107) Carbon Dioxide Level 22 MMOL/L (21-32) Anion Gap 10 mmol/L (5-15) Blood Urea Nitrogen 10 mg/dL (7-18) Creatinine 0.6 MG/DL (0.55-1.30) Estimat Glomerular Filtration Rate mL/min (>60) Glucose Level 332 MG/DL (74-106) H Calcium Level 9.1 MG/DL (8.5-10.1) Phosphorus Level 3.0 MG/DL (2.5-4.9) Magnesium Level 1.6 MG/DL (1.8-2.4) L Total Bilirubin 0.5 MG/DL (0.2-1.0) Direct Bilirubin 0.2 MG/DL (0.0-0.3) Aspartate Amino Transf (AST/SGOT) 31 U/L (15-37) Alanine Aminotransferase (ALT/SGPT) 25 U/L (12-78) Alkaline Phosphatase 234 U/L (46-116) H Total Protein 5.4 G/DL (6.4-8.2) L Albumin 1.8 G/DL (3.4-5.0) L Microbiology Date/Time Source Procedure Growth Status 03/21/19 21:30 Blood Blood Culture - Preliminary NO GROWTH AFTER 24 HOURS Resulted 03/21/19 21:27 Blood Blood Culture - Preliminary NO GROWTH AFTER 24 HOURS Resulted Intake and Output 03/22/19 03/23/19 19:00 07:00 Intake Total 55 ml 415 ml Balance 55 ml 415 ml Intake Oral 360 ml IV Total 55 ml 55 ml # Voids 6 4 # Bowel Movements 1 Objective PHYSICAL EXAMINATION: GENERAL: The patient is a well developed, well nourished female who is intubated and sedated. HEENT: Eyes, pupils equal and responsive to light and accommodation. Extraocular movements are intact. NECK: Supple without lymphadenopathy. CHEST: Nasc canula; Few diffuse wheezes bilaterally. Otherwise, without wheezes or rales. CARDIOVASCULAR: Regular rhythm rate. S1-S2 are normal without murmurs, rubs, or gallops. ABDOMEN: NGT; Soft, nontender with decreased bowel sounds. No evidence of hepatosplenomegaly. no rebound or guarding noted. EXTREMITIES: Negative for clubbing, cyanosis, edema. RECTAL/GENITAL: Not performed. NEUROLOGIC: Cranial nerves II through XII are grossly intact without focal deficits. Assessment/Plan Assessment/Plan ASSESSMENT: This is an 84-year-old female. 1. Perforated gastric ulcer 2. Abdominal pain. 3. Nausea with vomiting. 4. Diabetes type 2. 5. Hypertension. 6. Post Op fever-resolved TREATMENT: 1. Perforated gastric ulcer. A General Surgery consultation has been obtained with Dr. Sheth. S/P exploratory laparotomy 03/10/19=perforated Pre pyloric ulcer. Tolerating regular diet; NGT discontinued per surgery 2. Diabetes type 2. NovoLog sliding scale has been instituted. 3. Hypertension. The patient is currently hypotensive. 4. Respiratory failure. S/P extubation 03/12/19. A Pulmonary consultation has been obtained with Dr. Bibiana Pennington. 5. Med/surg 6. Discharge home today-No accepting home health agency- See discharge planning note. Discharge prescriptions written Zen Paige MD Mar 23, 2019 12:09
[2019-03-23] MEDS ORDERED: Levemir Flexpen SUBQ ONE (13:00)
--- NOTE | 2019-03-23 13:20 | Infectious Diseases Prog Note ---
Assessment/Plan Assessment/Plan Assessment: Perforated pre-pyloric gastric ulcer -s/p UGI series: Negative for postoperative leak -03/10 SP 03/10 SP Exploratory Laparotomy, Abdominal washout. Partial omentectomy. Shane patch for repair of perforated pre-pyloric ulcer. -03/10 CT abd/p: Free intraperitoneal gas. Etiology not completely certain, but gas within and extending from the anterior gastric antral wall is suspicious for a perforated gastric ulcer. Perforated descending colon diverticulitis also possible but deemed much less likely. Free intraperitoneal fluid, presumably related to the above. Fatty liver. Basilar pulmonary parenchymal groundglass opacities. This could indicate pulmonary edema, among other possibilities. Subcentimeter low-attenuation renal lesions, too small to characterize, most likely benign simple cyst. No further follow-up necessary. 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 Fever- r/o infectious, r/o DVT Leukocytosis, recurrent, increasing -03/22 CXR: Cardiomegaly.Bilateral basilar atelectasis or scarring. Decreased left pleural fluid u/a neg -03/21 BCx NTD -03/20 CXR: Subsegmental atelectasis versus infiltrate in the left lung base. -03/19 u/a neg Cdiff neg -v/ duplex no DVT Acute encephalopathy -CT head: Chronic and age-related changes. Negative for acute intracranial bleed or mass effect VDRF, post-op; extubated 03/12 DARRON, SP Dm2 HTN Plan: -Cont empiric Cefepime #2 and add PO Flagyl -03/22 SP Fluconazole #10 -03/15 SP Zosyn #6 -03/10 SP IV Vancomycin #1, Ancef x1 -f/u cx -Monitor CBC/CMP, temperatures -Sx f/u -wound care per surgical team -aspiration precautions -f/u BCx x2 -Low threshold for CT abd/p if worsening WBC Subjective Allergies: Coded Allergies: No Known Allergies (Unverified , 03/10/19) Subjective afebrile >36hrs leukocytosis increasing Bcx NTD Objective Vital Signs Last 24 Hour Vital Signs Date Time Temp Pulse Resp B/P (MAP) Pulse Ox O2 Delivery O2 Flow Rate FiO2 03/23/19 12:00 97.9 94 20 136/65 (88) 96 03/23/19 11:01 98.1 03/23/19 09:00 Room Air 03/23/19 08:00 98.1 103 18 117/62 (80) 95 03/23/19 05:55 94 127/65 (85) 03/23/19 04:00 99.1 99 18 118/51 (73) 94 03/23/19 00:00 98.9 96 16 115/53 (73) 95 03/22/19 21:13 96 Room Air 21 03/22/19 21:00 Room Air 03/22/19 20:00 99.4 101 17 118/50 (72) 94 03/22/19 16:00 98.6 109 17 130/64 (86) 96 Height (Feet): 5 Height (Inches): 0.00 Weight (Pounds): 103 Objective General appearance: alert, cooperative, no distress, appears stated age Head: Normocephalic, without obvious abnormality, atraumatic Eyes: conjunctivae/corneas clear. PERRL, EOM's intact. Fundi benign Throat: Lips, mucosa, and tongue normal. Teeth and gums normal Neck: supple, symmetrical, trachea midline, no adenopathy, thyroid: not enlarged, symmetric, no tenderness/mass/nodules, no carotid bruit and no JVD Lungs: clear to auscultation bilaterally Heart: regular rate and rhythm, S1, S2 normal, no murmur, click, rub or gallop Abdomen: soft, peritonitis with tender. Bowel sounds normal. No masses, no organomegaly Extremities: extremities normal, atraumatic, no cyanosis or edema Pulses: 2+ and symmetric Skin: Skin color, texture, turgor normal. No rashes or lesions Neurologic: Grossly normal Microbiology Date/Time Source Procedure Growth Status 03/21/19 21:30 Blood Blood Culture - Preliminary NO GROWTH AFTER 24 HOURS Resulted 03/21/19 21:27 Blood Blood Culture - Preliminary NO GROWTH AFTER 24 HOURS Resulted Laboratory Tests Test 03/22/19 22:55 03/23/19 05:40 Urine Color Pale yellow Urine Appearance Clear Urine pH 8 (4.5-8.0) Urine Specific [place] 1.010 (1.005-1.035) Urine Protein Negative (NEGATIVE) Urine Glucose (UA) 4+ (NEGATIVE) H Urine Ketones 1+ (NEGATIVE) H Urine Blood Negative (NEGATIVE) Urine Nitrite Negative (NEGATIVE) Urine Bilirubin Negative (NEGATIVE) Urine Urobilinogen Normal MG/DL (0.0-1.0) Urine Leukocyte Esterase Negative (NEGATIVE) White Blood Count 13.9 K/UL (4.8-10.8) H Red Blood Count 3.21 M/UL (4.20-5.40) L Hemoglobin 9.2 G/DL (12.0-16.0) L Hematocrit 29.2 % (37.0-47.0) L Mean Corpuscular Volume 91 FL (80-99) Mean Corpuscular Hemoglobin 28.7 PG (27.0-31.0) Mean Corpuscular Hemoglobin Concent 31.5 G/DL (32.0-36.0) L Red Cell Distribution Width 16.0 % (11.6-14.8) H Platelet Count 388 K/UL (150-450) Mean Platelet Volume 7.0 FL (6.5-10.1) Neutrophils (%) (Auto) 78.1 % (45.0-75.0) H Lymphocytes (%) (Auto) 10.0 % (20.0-45.0) L Monocytes (%) (Auto) 9.7 % (1.0-10.0) Eosinophils (%) (Auto) 1.1 % (0.0-3.0) Basophils (%) (Auto) 1.1 % (0.0-2.0) Sodium Level 137 MMOL/L (136-145) Potassium Level 4.4 MMOL/L (3.5-5.1) Chloride Level 105 MMOL/L (98-107) Carbon Dioxide Level 22 MMOL/L (21-32) Anion Gap 10 mmol/L (5-15) Blood Urea Nitrogen 10 mg/dL (7-18) Creatinine 0.6 MG/DL (0.55-1.30) Estimat Glomerular Filtration Rate mL/min (>60) Glucose Level 332 MG/DL (74-106) H Calcium Level 9.1 MG/DL (8.5-10.1) Phosphorus Level 3.0 MG/DL (2.5-4.9) Magnesium Level 1.6 MG/DL (1.8-2.4) L Total Bilirubin 0.5 MG/DL (0.2-1.0) Direct Bilirubin 0.2 MG/DL (0.0-0.3) Aspartate Amino Transf (AST/SGOT) 31 U/L (15-37) Alanine Aminotransferase (ALT/SGPT) 25 U/L (12-78) Alkaline Phosphatase 234 U/L (46-116) H Total Protein 5.4 G/DL (6.4-8.2) L Albumin 1.8 G/DL (3.4-5.0) L Current Medications Medications (Trade) Dose Ordered Sig/Shantelle Route PRN Reason Start Time Stop Time Status Last Admin Dose Admin Acetaminophen (Tylenol) 650 mg Q4H PRN ORAL Mild Pain/Temp > 100.5 03/19/19 16:00 04/18/19 15:59 03/19/19 21:23 Cefepime HCl 1 gm/ Dextrose 55 ml @ 110 mls/hr EVERY 12 HOURS IVPB 03/22/19 13:00 03/29/19 12:59 03/23/19 09:18 Dextrose (Dextrose 50%) 25 ml Q30M PRN IV Hypoglycemia 03/23/19 08:45 04/22/19 08:44 Dextrose (Dextrose 50%) 50 ml Q30M PRN IV Hypoglycemia 03/23/19 08:45 04/22/19 08:44 Fluconazole (Diflucan) 100 mg Q24H ORAL 03/16/19 20:00 03/23/19 19:59 03/22/19 20:15 Glipizide (Glucotrol) 5 mg BIAC ORAL 03/21/19 16:30 04/20/19 16:29 03/23/19 06:00 Heparin Sodium (Porcine) (Heparin 5000 units/ml) 5,000 units EVERY 12 HOURS SUBQ 03/13/19 21:00 04/09/19 20:59 03/23/19 09:20 Insulin Aspart (NovoLOG) BEFORE MEALS AND HS SUBQ 03/23/19 11:30 04/22/19 11:29 03/23/19 11:36 Magnesium Sulfate 100 ml @ 100 mls/hr Q1H IVPB 03/23/19 10:00 03/23/19 13:59 03/23/19 13:08 Megestrol Acetate (Megace) 400 mg TWICE A DAY ORAL 03/19/19 09:30 04/18/19 09:29 03/23/19 09:18 Nateglinide (Starlix) 120 mg TIAC ORAL 03/23/19 11:30 04/22/19 11:29 03/23/19 11:33 Ondansetron HCl (Zofran) 4 mg Q6H PRN IVP Nausea & Vomiting 03/13/19 19:15 04/09/19 13:14 Pantoprazole (Protonix) 40 mg EVERY 12 HOURS ORAL 03/16/19 21:00 04/15/19 20:59 03/23/19 09:18 Janette Stallworth M.D. Mar 23, 2019 13:20
[2019-03-23] MEDS: metroNIDAZOLE 500mg tab ORAL SCH ×2 (13:40→21:55)
--- NOTE | 2019-03-23 17:26 | NUR ---
NURSE NOTES: PATIENT MORE AWAKE AND CONVERSING WITH FAMILY AND STAFF. FOLLOWING SIMPLE COMMANDS AND MOTIVATED TO WORK WITH PHYSICAL THERAPY. SAT IN CHAIR SEVERAL TIMES TODAY. TOLERATED GOOD. CHILDREN AT BEDSIDE. CALL LIGHT WITHIN REACH.
--- NOTE | 2019-03-23 19:20 | NUR ---
HAND-OFF: Report given to ESTEE Hastings RN.
--- NOTE | 2019-03-23 19:30 | NUR ---
NURSE NOTES: Patient asleep in bed, no signs of pain, not in acute respiratory distress. IV access on the right hand. Family at bedside. Instructed to call RN for assistance. Bed in lowest position, lock engaged and alarm on. Will continue to monitor.
--- NOTE | 2019-03-23 22:13 | NUR ---
NURSE NOTES: 9pm and 10pm meds were given. Scanned earlier but computer shut down the eMAR window. Administered as ordered.
[2019-03-24 05:00] VITALS: BP 122/57
[2019-03-24] MEDS: GlipiZIDE 5mg tab ORAL SCH ×2 (05:55→16:33)
[2019-03-24] MEDS: metroNIDAZOLE 500mg tab ORAL SCH ×3 (05:55→22:15)
[2019-03-24] MEDS: NovoLOG Insulin Flexpen SUBQ SCH ×4 (05:56→21:08)
--- NOTE | 2019-03-24 07:45 | NUR ---
HAND-OFF: Report given to SARAI Veloz.
--- NOTE | 2019-03-24 07:55 | NUR ---
NURSE NOTES: Patient awake, alert x4, [place] speaking; on room air, no sing of distress and shortness of breath; no sing of chest pain; IV RH 22G flushes well; family member at the bed side; Commod at the bed side; side rails up x3, breaks engaged, bed at lowest position; call light within reach; will check blood sugar as scheduled; will keep monitoring.
[2019-03-24 08:00] VITALS: BP 122/68
[2019-03-24] MEDS: Megace 400mg/10ml Susp ORAL SCH (08:47)
[2019-03-24] MEDS: Cefepime HCl 1 GM in D5W 55 ML IVPB SCH ×2 (08:48→20:56)
[2019-03-24] MEDS: Heparin 5000 units/ml inj SUBQ SCH ×2 (08:50→20:57)
--- NOTE | 2019-03-24 10:51 | Nephrology Progress Note ---
Assessment/Plan Problem List: (1) Perforated abdominal viscus (2) Hypokalemia (3) Hypomagnesemia (4) Diabetes mellitus (5) Anemia Assessment Post lap on 03/10 Low K Low Phos Low Mag Anemia DM h/o HTN Plan add oral hypoglycemics for high BS high K likely hemolysis resolved DC IV start megace for apetite change all to orals Mag and K and Phos IV as needed Anemia claudio Keep BP and BS in check per orders DC planning Subjective ROS Limited/Unobtainable: No Objective Objective Last 24 Hour Vital Signs Date Time Temp Pulse Resp B/P (MAP) Pulse Ox O2 Delivery O2 Flow Rate FiO2 03/24/19 09:00 Room Air 03/24/19 08:00 99.1 96 18 122/68 (86) 95 03/24/19 05:00 97.3 90 18 122/57 (78) 93 03/23/19 21:00 Room Air 03/23/19 20:00 99.4 94 18 104/52 (69) 93 03/23/19 16:00 98.0 99 18 128/64 (85) 95 03/23/19 12:00 97.9 94 20 136/65 (88) 96 03/23/19 11:01 98.1 Intake and Output 03/23/19 03/24/19 18:59 06:59 Intake Total 395 ml 355 ml Balance 395 ml 355 ml Intake Oral 240 ml 300 ml IV Total 155 ml 55 ml # Voids 5 2 # Bowel Movements 3 Height (Feet): 5 Height (Inches): 0.00 Weight (Pounds): 108 General Appearance: no apparent distress Objective no change El Clark MD Mar 24, 2019 10:51
[2019-03-24 12:00] VITALS: BP 120/63
--- NOTE | 2019-03-24 12:19 | Pulmonology Progress Note ---
Assessment/Plan Problems: (1) Sepsis (2) S/P exploratory laparotomy (3) Perforated abdominal viscus (4) Septic shock (5) Diabetes mellitus (6) Peritonitis Assessment/Plan improving on regular diet on abx wbc rising Subjective ROS Limited/Unobtainable: Yes Allergies: Coded Allergies: No Known Allergies (Unverified , 03/10/19) Objective Last 24 Hour Vital Signs Date Time Temp Pulse Resp B/P (MAP) Pulse Ox O2 Delivery O2 Flow Rate FiO2 03/24/19 11:50 96 Room Air 21 03/24/19 09:00 Room Air 03/24/19 08:00 99.1 96 18 122/68 (86) 95 03/24/19 05:00 97.3 90 18 122/57 (78) 93 03/23/19 21:00 Room Air 03/23/19 20:00 99.4 94 18 104/52 (69) 93 03/23/19 16:00 98.0 99 18 128/64 (85) 95 Intake and Output 03/23/19 03/24/19 18:59 06:59 Intake Total 395 ml 355 ml Balance 395 ml 355 ml Intake Oral 240 ml 300 ml IV Total 155 ml 55 ml # Voids 5 2 # Bowel Movements 3 General Appearance: WD/WN HEENT: normocephalic, mucous membranes moist Respiratory/Chest: chest wall non-tender, normal breath sounds Cardiovascular: normal peripheral pulses Genitourinary: normal external genitalia Skin: no rash Microbiology Date/Time Source Procedure Growth Status 03/21/19 21:30 Blood Blood Culture - Preliminary NO GROWTH AFTER 48 HOURS Resulted 03/21/19 21:27 Blood Blood Culture - Preliminary NO GROWTH AFTER 48 HOURS Resulted Current Medications Medications (Trade) Dose Ordered Sig/Shantelle Route PRN Reason Start Time Stop Time Status Last Admin Dose Admin Acetaminophen (Tylenol) 650 mg Q4H PRN ORAL Mild Pain/Temp > 100.5 03/19/19 16:00 04/18/19 15:59 03/19/19 21:23 Cefepime HCl 1 gm/ Dextrose 55 ml @ 110 mls/hr EVERY 12 HOURS IVPB 03/22/19 13:00 03/29/19 12:59 03/24/19 08:48 Dextrose (Dextrose 50%) 25 ml Q30M PRN IV Hypoglycemia 03/23/19 08:45 04/22/19 08:44 Dextrose (Dextrose 50%) 50 ml Q30M PRN IV Hypoglycemia 03/23/19 08:45 04/22/19 08:44 Glipizide (Glucotrol) 5 mg BIAC ORAL 03/21/19 16:30 04/20/19 16:29 03/24/19 05:55 Heparin Sodium (Porcine) (Heparin 5000 units/ml) 5,000 units EVERY 12 HOURS SUBQ 03/13/19 21:00 04/09/19 20:59 03/24/19 08:50 Insulin Aspart (NovoLOG) BEFORE MEALS AND HS SUBQ 03/23/19 11:30 04/22/19 11:29 03/24/19 11:56 Metronidazole (Flagyl) 500 mg Q8HR ORAL 03/23/19 14:00 03/30/19 13:59 03/24/19 05:55 Nateglinide (Starlix) 120 mg TIAC ORAL 03/23/19 11:30 04/22/19 11:29 03/24/19 11:55 Ondansetron HCl (Zofran) 4 mg Q6H PRN IVP Nausea & Vomiting 03/13/19 19:15 04/09/19 13:14 Pantoprazole (Protonix) 40 mg EVERY 12 HOURS ORAL 03/16/19 21:00 04/15/19 20:59 03/24/19 08:47 Bibiana Pennington MD Mar 24, 2019 12:19
--- NOTE | 2019-03-24 12:46 | Diagnostic Imaging Report ---
APPROVED REPORT CPT Code: 67841 Present Symptoms Comments: Pain BILATERAL: Imaging reveals a patent deep venous system bilaterally. There is no evidence of thrombus within the femoral, popliteal or tibial segments. The greater saphenous veins are also within normal limits. Doppler indicates normal spontaneous flow within these segments.
--- NOTE | 2019-03-24 14:07 | Infectious Diseases Prog Note ---
Assessment/Plan Assessment/Plan Assessment: Perforated pre-pyloric gastric ulcer -s/p UGI series: Negative for postoperative leak -03/10 SP 03/10 SP Exploratory Laparotomy, Abdominal washout. Partial omentectomy. Shane patch for repair of perforated pre-pyloric ulcer. -03/10 CT abd/p: Free intraperitoneal gas. Etiology not completely certain, but gas within and extending from the anterior gastric antral wall is suspicious for a perforated gastric ulcer. Perforated descending colon diverticulitis also possible but deemed much less likely. Free intraperitoneal fluid, presumably related to the above. Fatty liver. Basilar pulmonary parenchymal groundglass opacities. This could indicate pulmonary edema, among other possibilities. Subcentimeter low-attenuation renal lesions, too small to characterize, most likely benign simple cyst. No further follow-up necessary. 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 Fever- r/o infectious, r/o DVT Leukocytosis, recurrent, increasing -03/22 CXR: Cardiomegaly.Bilateral basilar atelectasis or scarring. Decreased left pleural fluid u/a neg -03/21 BCx NTD -03/20 CXR: Subsegmental atelectasis versus infiltrate in the left lung base. -03/19 u/a neg Cdiff neg -v/ duplex no DVT Acute encephalopathy -CT head: Chronic and age-related changes. Negative for acute intracranial bleed or mass effect VDRF, post-op; extubated 03/12 DARRON, SP Dm2 HTN Plan: -Cont empiric Cefepime #3 and PO Flagyl #2 for now -03/22 SP Fluconazole #10 -03/15 SP Zosyn #6 -03/10 SP IV Vancomycin #1, Ancef x1 -f/u cx -Monitor CBC/CMP, temperatures -Sx f/u -wound care per surgical team -aspiration precautions -f/u BCx x2 -Low threshold for CT abd/p if worsening WBC Subjective Allergies: Coded Allergies: No Known Allergies (Unverified , 03/10/19) Subjective afebrile >48hrs no labs today Bcx NTD v duplex neg Objective Vital Signs Last 24 Hour Vital Signs Date Time Temp Pulse Resp B/P (MAP) Pulse Ox O2 Delivery O2 Flow Rate FiO2 03/24/19 12:00 99.6 98 18 120/63 (82) 95 03/24/19 11:50 96 Room Air 21 03/24/19 09:00 Room Air 03/24/19 08:00 99.1 96 18 122/68 (86) 95 03/24/19 05:00 97.3 90 18 122/57 (78) 93 03/23/19 21:00 Room Air 03/23/19 20:00 99.4 94 18 104/52 (69) 93 03/23/19 16:00 98.0 99 18 128/64 (85) 95 Height (Feet): 5 Height (Inches): 0.00 Weight (Pounds): 108 Objective General appearance: alert, cooperative, no distress, appears stated age Head: Normocephalic, without obvious abnormality, atraumatic Eyes: conjunctivae/corneas clear. PERRL, EOM's intact. Fundi benign Throat: Lips, mucosa, and tongue normal. Teeth and gums normal Neck: supple, symmetrical, trachea midline, no adenopathy, thyroid: not enlarged, symmetric, no tenderness/mass/nodules, no carotid bruit and no JVD Lungs: clear to auscultation bilaterally Heart: regular rate and rhythm, S1, S2 normal, no murmur, click, rub or gallop Abdomen: soft, peritonitis with tender. Bowel sounds normal. No masses, no organomegaly Extremities: extremities normal, atraumatic, no cyanosis or edema Pulses: 2+ and symmetric Skin: Skin color, texture, turgor normal. No rashes or lesions Neurologic: Grossly normal Microbiology Date/Time Source Procedure Growth Status 03/21/19 21:30 Blood Blood Culture - Preliminary NO GROWTH AFTER 48 HOURS Resulted 03/21/19 21:27 Blood Blood Culture - Preliminary NO GROWTH AFTER 48 HOURS Resulted Current Medications Medications (Trade) Dose Ordered Sig/Shantelle Route PRN Reason Start Time Stop Time Status Last Admin Dose Admin Acetaminophen (Tylenol) 650 mg Q4H PRN ORAL Mild Pain/Temp > 100.5 03/19/19 16:00 04/18/19 15:59 03/19/19 21:23 Cefepime HCl 1 gm/ Dextrose 55 ml @ 110 mls/hr EVERY 12 HOURS IVPB 03/22/19 13:00 03/29/19 12:59 03/24/19 08:48 Dextrose (Dextrose 50%) 25 ml Q30M PRN IV Hypoglycemia 9/4/19 08:45 04/22/19 08:44 Dextrose (Dextrose 50%) 50 ml Q30M PRN IV Hypoglycemia 03/23/19 08:45 04/22/19 08:44 Glipizide (Glucotrol) 5 mg BIAC ORAL 03/21/19 16:30 04/20/19 16:29 03/24/19 05:55 Heparin Sodium (Porcine) (Heparin 5000 units/ml) 5,000 units EVERY 12 HOURS SUBQ 03/13/19 21:00 04/09/19 20:59 03/24/19 08:50 Insulin Aspart (NovoLOG) BEFORE MEALS AND HS SUBQ 03/23/19 11:30 04/22/19 11:29 03/24/19 11:56 Metronidazole (Flagyl) 500 mg Q8HR ORAL 03/23/19 14:00 03/30/19 13:59 03/24/19 13:09 Nateglinide (Starlix) 120 mg TIAC ORAL 03/23/19 11:30 04/22/19 11:29 03/24/19 11:55 Ondansetron HCl (Zofran) 4 mg Q6H PRN IVP Nausea & Vomiting 03/13/19 19:15 04/09/19 13:14 Pantoprazole (Protonix) 40 mg EVERY 12 HOURS ORAL 03/16/19 21:00 04/15/19 20:59 03/24/19 08:47 Janette Stallworth M.D. Mar 24, 2019 14:07
[2019-03-24 16:00] VITALS: BP 123/60
--- NOTE | 2019-03-24 17:01 | NUR ---
NURSE NOTES: MD Pennington put discharge order; MD Federica green see patient's WBC from tomorrow before patient discharge. MD Pennington and charge nurse Elba notified .
--- NOTE | 2019-03-24 17:18 | Internal Med Progress Note ---
Subjective Date of Service: Mar 24, 2019 Physician Name Zen Paige Attending Physician Marcos Silva MD Current Medications Medications (Trade) Dose Ordered Sig/Shantelle Route PRN Reason Start Time Stop Time Status Last Admin Dose Admin Acetaminophen (Tylenol) 650 mg Q4H PRN ORAL Mild Pain/Temp > 100.5 03/19/19 16:00 04/18/19 15:59 03/19/19 21:23 Cefepime HCl 1 gm/ Dextrose 55 ml @ 110 mls/hr EVERY 12 HOURS IVPB 03/22/19 13:00 03/29/19 12:59 03/24/19 08:48 Dextrose (Dextrose 50%) 25 ml Q30M PRN IV Hypoglycemia 03/23/19 08:45 04/22/19 08:44 Dextrose (Dextrose 50%) 50 ml Q30M PRN IV Hypoglycemia 03/23/19 08:45 04/22/19 08:44 Glipizide (Glucotrol) 5 mg BIAC ORAL 03/21/19 16:30 04/20/19 16:29 03/24/19 16:33 Heparin Sodium (Porcine) (Heparin 5000 units/ml) 5,000 units EVERY 12 HOURS SUBQ 03/13/19 21:00 04/09/19 20:59 03/24/19 08:50 Insulin Aspart (NovoLOG) BEFORE MEALS AND HS SUBQ 03/23/19 11:30 04/22/19 11:29 03/24/19 16:34 Metronidazole (Flagyl) 500 mg Q8HR ORAL 03/23/19 14:00 03/30/19 13:59 03/24/19 13:09 Nateglinide (Starlix) 120 mg TIAC ORAL 03/23/19 11:30 04/22/19 11:29 03/24/19 16:33 Ondansetron HCl (Zofran) 4 mg Q6H PRN IVP Nausea & Vomiting 03/13/19 19:15 04/09/19 13:14 Pantoprazole (Protonix) 40 mg EVERY 12 HOURS ORAL 03/16/19 21:00 04/15/19 20:59 03/24/19 08:47 Allergies: Coded Allergies: No Known Allergies (Unverified , 03/10/19) ROS Limited/Unobtainable: No Constitutional: Reports: no symptoms HEENT: Reports: no symptoms Cardiovascular: Reports: no symptoms Respiratory: Reports: no symptoms Gastrointestinal/Abdominal: Reports: no symptoms Genitourinary: Reports: no symptoms Neurologic/Psychiatric: Reports: no symptoms Subjective 84 YO F admitted with abdominal pain. S/P exploratory laparotomy 03/10/19. Cover for Int Med-Dr Silva. Objective Last Vital Signs Date Time Temp Pulse Resp B/P (MAP) Pulse Ox O2 Delivery O2 Flow Rate FiO2 03/24/19 16:00 98.8 100 18 123/60 (81) 96 03/24/19 11:50 Room Air 21 03/15/19 09:00 2.0 Microbiology Date/Time Source Procedure Growth Status 03/21/19 21:30 Blood Blood Culture - Preliminary NO GROWTH AFTER 48 HOURS Resulted 03/21/19 21:27 Blood Blood Culture - Preliminary NO GROWTH AFTER 48 HOURS Resulted Intake and Output 03/23/19 03/24/19 19:00 07:00 Intake Total 395 ml 355 ml Balance 395 ml 355 ml Intake Oral 240 ml 300 ml IV Total 155 ml 55 ml # Voids 5 2 # Bowel Movements 3 Objective PHYSICAL EXAMINATION: GENERAL: The patient is a well developed, well nourished female who is intubated and sedated. HEENT: Eyes, pupils equal and responsive to light and accommodation. Extraocular movements are intact. NECK: Supple without lymphadenopathy. CHEST: Nasc canula; Few diffuse wheezes bilaterally. Otherwise, without wheezes or rales. CARDIOVASCULAR: Regular rhythm rate. S1-S2 are normal without murmurs, rubs, or gallops. ABDOMEN: NGT; Soft, nontender with decreased bowel sounds. No evidence of hepatosplenomegaly. no rebound or guarding noted. EXTREMITIES: Negative for clubbing, cyanosis, edema. RECTAL/GENITAL: Not performed. NEUROLOGIC: Cranial nerves II through XII are grossly intact without focal deficits. Assessment/Plan Assessment/Plan ASSESSMENT: This is an 84-year-old female. 1. Perforated gastric ulcer 2. Abdominal pain. 3. Nausea with vomiting. 4. Diabetes type 2. 5. Hypertension. 6. Post Op fever-resolved TREATMENT: 1. Perforated gastric ulcer. A General Surgery consultation has been obtained with Dr. Sheth. S/P exploratory laparotomy 03/10/19=perforated Pre pyloric ulcer. Tolerating regular diet; NGT discontinued per surgery 2. Diabetes type 2. NovoLog sliding scale has been instituted. 3. Hypertension. The patient is currently hypotensive. 4. Respiratory failure. S/P extubation 03/12/19. A Pulmonary consultation has been obtained with Dr. Bibiana Pennington. 5. Med/surg 6. Discharge held by ID because of elevated WBC-No accepting home health agency- See discharge planning note. Discharge prescriptions written Zen Paige MD Mar 24, 2019 17:18
--- NOTE | 2019-03-24 19:25 | NUR ---
NURSE NOTES: Report taken from SARAI Veloz. Patient is awake and in bed, very fatigued, A&Ox4. Sami speaking only, family at bedside. No signs of distress on room air. Having complaints of abdominal/gastric pain, feeling of having to go to the bathroom constantly, 4/10. Patient is ambulatory to C but very weak, requires max assist. IV site infiltrated, will place new IV. Skin is intact, has a small area of redness on sacral area, triad cream and optifoam applied, continue to monitor. Bed in lowest position, call light within reach.
--- NOTE | 2019-03-24 19:43 | NUR ---
HAND-OFF: Report given to SARAI Morgan.
[2019-03-24 20:00] VITALS: BP 118/59
--- NOTE | 2019-03-24 20:45 | NUR ---
NURSE NOTES: New IV inserted, Rt FA 22g.
[2019-03-25] VITALS: BP 115/61
[2019-03-25 04:00] VITALS: BP 121/65
[2019-03-25] MEDS: GlipiZIDE 5mg tab ORAL SCH ×2 (06:27→17:12)
[2019-03-25] MEDS: metroNIDAZOLE 500mg tab ORAL SCH ×3 (06:28→22:00)
[2019-03-25] MEDS: NovoLOG Insulin Flexpen SUBQ SCH ×4 (06:29→21:09)
[2019-03-25 06:34] LABS: EOSINOPHILS % (AUTO) 0.8 % (0.0-3.0); HEMATOCRIT 29.9 % (37.0-47.0); HEMOGLOBIN 9.6 G/DL (12.0-16.0); LYMPHOCYTES % (AUTO) 11.4 % (20.0-45.0); MEAN CORPUSCULAR VOLUME 89 FL (80-99); MONOCYTES % (AUTO) 10.7 % (1.0-10.0); NEUTROPHILS % (AUTO) 76.2 % (45.0-75.0); PLATELET COUNT 454 K/UL (150-450); RED BLOOD COUNT 3.38 M/UL (4.20-5.40); RED CELL DISTRIBUTION WIDTH 15.5 % (11.6-14.8); WHITE BLOOD COUNT 15.3 K/UL (4.8-10.8)
[2019-03-25 06:36] LABS: ALANINE AMINOTRANSFERASE 29 U/L (12-78); ALBUMIN 1.7 G/DL (3.4-5.0); ALBUMIN/GLOBULIN RATIO 0.4 (1.0-2.7); ALKALINE PHOSPHATASE 263 U/L (46-116); ANION GAP 11 mmol/L (5-15); ASPARTATE AMINO TRANSFERASE 43 U/L (15-37); BILIRUBIN,TOTAL 0.4 MG/DL (0.2-1.0); BLOOD UREA NITROGEN 10 mg/dL (7-18); CALCIUM 9.3 MG/DL (8.5-10.1); CARBON DIOXIDE 21 MMOL/L (21-32); CHLORIDE 104 MMOL/L (98-107); CREATININE 0.6 MG/DL (0.55-1.30); PHOSPHORUS 2.4 MG/DL (2.5-4.9); POTASSIUM 4.2 MMOL/L (3.5-5.1); SODIUM 136 MMOL/L (136-145)
--- NOTE | 2019-03-25 07:12 | NUR ---
HAND-OFF: Report given to SARAI Veloz. Mag Sulfate ordered, first bag hung. Endorsed to day shift.
--- NOTE | 2019-03-25 07:29 | NUR ---
NURSE NOTES: Patient awake, looks weaker, alert x2, Urdu speaking; no sign of chest pain; IV RFA 22G Magnesium bag running; according to PM nurse patient had a bowel movement mixed with blood, will keep monitoring that and try to collect stool; side rails up x2, bed at lowest position, breaks engaged, bed alarm on; incision cite at the abdomen dry and intact; call light within reach; will keep monitoring.
--- NOTE | 2019-03-25 07:53 | Nephrology Progress Note ---
Assessment/Plan Problem List: (1) Perforated abdominal viscus (2) Hypokalemia (3) Hypomagnesemia (4) Diabetes mellitus (5) Anemia Assessment WBC rising Post lap on 03/10 Low K Low Phos Low Mag Anemia DM h/o HTN Plan add oral hypoglycemics for high BS high K likely hemolysis resolved DC IV mag supplement change all to orals Mag and K and Phos IV as needed Anemia claudio Keep BP and BS in check per orders DC planning Subjective ROS Limited/Unobtainable: No Constitutional: Reports: malaise Objective Objective Last 24 Hour Vital Signs Date Time Temp Pulse Resp B/P (MAP) Pulse Ox O2 Delivery O2 Flow Rate FiO2 03/25/19 04:00 98.9 94 18 121/65 (83) 97 03/25/19 00:00 98.7 91 18 115/61 (79) 97 03/24/19 21:00 Room Air 03/24/19 20:00 99.5 94 18 118/59 (78) 96 03/24/19 16:00 98.8 100 18 123/60 (81) 96 03/24/19 12:00 99.6 98 18 120/63 (82) 95 03/24/19 11:50 96 Room Air 21 03/24/19 09:00 Room Air 03/24/19 08:00 99.1 96 18 122/68 (86) 95 Intake and Output 03/24/19 03/25/19 18:59 06:59 Intake Total 584 ml 400 ml Balance 584 ml 400 ml Intake Oral 474 ml 400 ml IV Total 110 ml # Voids 3 3 # Bowel Movements 2 2 Laboratory Tests 03/25/19 05:20: White Blood Count 15.3H, Red Blood Count 3.38L, Hemoglobin 9.6L, Hematocrit 29.9L, Mean Corpuscular Volume 89, Mean Corpuscular Hemoglobin 28.3, Mean Corpuscular Hemoglobin Concent 31.9L, Red Cell Distribution Width 15.5H, Platelet Count 454H, Mean Platelet Volume 7.2, Neutrophils (%) (Auto) 76.2H, Lymphocytes (%) (Auto) 11.4L, Monocytes (%) (Auto) 10.7H, Eosinophils (%) (Auto ) 0.8, Basophils (%) (Auto) 1.0, Sodium Level 136, Potassium Level 4.2, Chloride Level 104, Carbon Dioxide Level 21, Anion Gap 11, Blood Urea Nitrogen 10, Creatinine 0.6, Estimat Glomerular Filtration Rate , Glucose Level 226H, Calcium Level 9.3, Phosphorus Level 2.4L, Magnesium Level 1.6L, Total Bilirubin 0.4, Aspartate Amino Transf (AST/SGOT) 43H, Alanine Aminotransferase (ALT/SGPT) 29, Alkaline Phosphatase 263H, C-Reactive Protein, Quantitative 18.1H, Pro-B- Type Natriuretic Peptide 396H, Total Protein 5.7L, Albumin 1.7L, Globulin 4.0, Albumin/Globulin Ratio 0.4L Height (Feet): 5 Height (Inches): 0.00 Weight (Pounds): 105 General Appearance: no apparent distress Objective no change El Clark MD Mar 25, 2019 07:53
[2019-03-25 08:00] VITALS: BP 122/63
[2019-03-25] MEDS: Heparin 5000 units/ml inj SUBQ SCH ×2 (08:33→21:09)
--- NOTE | 2019-03-25 08:33 | NUR ---
NURSE NOTES: Patient's platlet count is 454, Heparin held. Charge nurse Elba notified. Will keep monitoring.
[2019-03-25] MEDS: Cefepime HCl 1 GM in D5W 55 ML IVPB SCH ×2 (09:54→20:57)
--- NOTE | 2019-03-25 11:38 | NUR ---
NURSE NOTES: Patient's Blood Sugar for 1130 is 416 and MD Pennington, MD Silva and MD Larsen notified. Charge nurse Elba is also aware. will keep monitoring.
[2019-03-25 12:00] VITALS: BP 118/60
--- NOTE | 2019-03-25 12:01 | Infectious Diseases Prog Note ---
Assessment/Plan Assessment/Plan Assessment: Probable Sepsis Fever- r/o infectious Leukocytosis, recurrent, increasing- monitor closely for interval development of intraabdominal abscess -03/22 CXR: Cardiomegaly.Bilateral basilar atelectasis or scarring. Decreased left pleural fluid u/a neg -03/21 BCx NTD -03/20 CXR: Subsegmental atelectasis versus infiltrate in the left lung base. -03/19 u/a neg Cdiff neg -v/ duplex no DVT Perforated pre-pyloric gastric ulcer -03/15 s/p UGI series: Negative for postoperative leak -03/10 SP 03/10 SP Exploratory Laparotomy, Abdominal washout. Partial omentectomy. Shane patch for repair of perforated pre-pyloric ulcer. -03/10 CT abd/p: Free intraperitoneal gas. Etiology not completely certain, but gas within and extending from the anterior gastric antral wall is suspicious for a perforated gastric ulcer. Perforated descending colon diverticulitis also possible but deemed much less likely. Free intraperitoneal fluid, presumably related to the above. Fatty liver. Basilar pulmonary parenchymal groundglass opacities. This could indicate pulmonary edema, among other possibilities. Subcentimeter low-attenuation renal lesions, too small to characterize, most likely benign simple cyst. No further follow-up necessary. 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 Acute encephalopathy -CT head: Chronic and age-related changes. Negative for acute intracranial bleed or mass effect VDRF, post-op; extubated 03/12 DARRON, SP Dm2 HTN Plan: -Cont empiric Cefepime #4 and PO Flagyl #3 for now -03/22 SP Fluconazole #10 -03/15 SP Zosyn #6 -03/10 SP IV Vancomycin #1, Ancef x1 -f/u cx -Monitor CBC/CMP, temperatures -Sx f/u -wound care per surgical team -aspiration precautions -f/u BCx x2 -Will get CT abd/p w/ IV and PO contrast if WBC >15 Subjective Allergies: Coded Allergies: No Known Allergies (Unverified , 03/10/19) Subjective afebrile >72hrs wbc increasing Bcx NTD poor appetite BG and platelets also increased Objective Vital Signs Last 24 Hour Vital Signs Date Time Temp Pulse Resp B/P (MAP) Pulse Ox O2 Delivery O2 Flow Rate FiO2 9/6/19 09:00 Room Air 03/25/19 08:00 98.9 89 18 122/63 (82) 97 03/25/19 04:00 98.9 94 18 121/65 (83) 97 03/25/19 00:00 98.7 91 18 115/61 (79) 97 03/24/19 21:00 Room Air 03/24/19 20:00 99.5 94 18 118/59 (78) 96 03/24/19 16:00 98.8 100 18 123/60 (81) 96 03/24/19 12:00 99.6 98 18 120/63 (82) 95 Height (Feet): 5 Height (Inches): 0.00 Weight (Pounds): 105 Objective General appearance: alert, cooperative, no distress, appears stated age Head: Normocephalic, without obvious abnormality, atraumatic Eyes: conjunctivae/corneas clear. PERRL, EOM's intact. Fundi benign Throat: Lips, mucosa, and tongue normal. Teeth and gums normal Neck: supple, symmetrical, trachea midline, no adenopathy, thyroid: not enlarged, symmetric, no tenderness/mass/nodules, no carotid bruit and no JVD Lungs: clear to auscultation bilaterally Heart: regular rate and rhythm, S1, S2 normal, no murmur, click, rub or gallop Abdomen: soft, peritonitis with tender. Bowel sounds normal. No masses, no organomegaly Extremities: extremities normal, atraumatic, no cyanosis or edema Pulses: 2+ and symmetric Skin: Skin color, texture, turgor normal. No rashes or lesions Neurologic: Grossly normal Microbiology Date/Time Source Procedure Growth Status 03/23/19 20:44 Blood Blood Culture - Preliminary NO GROWTH AFTER 24 HOURS Resulted Laboratory Tests Test 03/25/19 05:20 White Blood Count 15.3 K/UL (4.8-10.8) H Red Blood Count 3.38 M/UL (4.20-5.40) L Hemoglobin 9.6 G/DL (12.0-16.0) L Hematocrit 29.9 % (37.0-47.0) L Mean Corpuscular Volume 89 FL (80-99) Mean Corpuscular Hemoglobin 28.3 PG (27.0-31.0) Mean Corpuscular Hemoglobin Concent 31.9 G/DL (32.0-36.0) L Red Cell Distribution Width 15.5 % (11.6-14.8) H Platelet Count 454 K/UL (150-450) H Mean Platelet Volume 7.2 FL (6.5-10.1) Neutrophils (%) (Auto) 76.2 % (45.0-75.0) H Lymphocytes (%) (Auto) 11.4 % (20.0-45.0) L Monocytes (%) (Auto) 10.7 % (1.0-10.0) H Eosinophils (%) (Auto) 0.8 % (0.0-3.0) Basophils (%) (Auto) 1.0 % (0.0-2.0) Sodium Level 136 MMOL/L (136-145) Potassium Level 4.2 MMOL/L (3.5-5.1) Chloride Level 104 MMOL/L (98-107) Carbon Dioxide Level 21 MMOL/L (21-32) Anion Gap 11 mmol/L (5-15) Blood Urea Nitrogen 10 mg/dL (7-18) Creatinine 0.6 MG/DL (0.55-1.30) Estimat Glomerular Filtration Rate mL/min (>60) Glucose Level 226 MG/DL (74-106) H Calcium Level 9.3 MG/DL (8.5-10.1) Phosphorus Level 2.4 MG/DL (2.5-4.9) L Magnesium Level 1.6 MG/DL (1.8-2.4) L Total Bilirubin 0.4 MG/DL (0.2-1.0) Aspartate Amino Transf (AST/SGOT) 43 U/L (15-37) H Alanine Aminotransferase (ALT/SGPT) 29 U/L (12-78) Alkaline Phosphatase 263 U/L (46-116) H C-Reactive Protein, Quantitative 18.1 mg/dL (0.00-0.90) H Pro-B-Type Natriuretic Peptide 396 pg/mL (0-125) H Total Protein 5.7 G/DL (6.4-8.2) L Albumin 1.7 G/DL (3.4-5.0) L Globulin 4.0 g/dL Albumin/Globulin Ratio 0.4 (1.0-2.7) L Current Medications Medications (Trade) Dose Ordered Sig/Shantelle Route PRN Reason Start Time Stop Time Status Last Admin Dose Admin Acetaminophen (Tylenol) 650 mg Q4H PRN ORAL Mild Pain/Temp > 100.5 03/19/19 16:00 04/18/19 15:59 03/19/19 21:23 Cefepime HCl 1 gm/ Dextrose 55 ml @ 110 mls/hr EVERY 12 HOURS IVPB 03/22/19 13:00 03/29/19 12:59 03/25/19 09:54 Dextrose (Dextrose 50%) 25 ml Q30M PRN IV Hypoglycemia 03/23/19 08:45 04/22/19 08:44 Dextrose (Dextrose 50%) 50 ml Q30M PRN IV Hypoglycemia 03/23/19 08:45 04/22/19 08:44 Glipizide (Glucotrol) 5 mg BIAC ORAL 03/21/19 16:30 04/20/19 16:29 03/25/19 06:27 Heparin Sodium (Porcine) (Heparin 5000 units/ml) 5,000 units EVERY 12 HOURS SUBQ 03/13/19 21:00 04/09/19 20:59 03/24/19 20:57 Insulin Aspart (NovoLOG) BEFORE MEALS AND HS SUBQ 03/23/19 11:30 04/22/19 11:29 03/25/19 11:43 Metronidazole (Flagyl) 500 mg Q8HR ORAL 03/23/19 14:00 03/30/19 13:59 03/25/19 06:28 Nateglinide (Starlix) 120 mg TIAC ORAL 03/23/19 11:30 04/22/19 11:29 03/25/19 11:42 Ondansetron HCl (Zofran) 4 mg Q6H PRN IVP Nausea & Vomiting 03/13/19 19:15 04/09/19 13:14 Pantoprazole (Protonix) 40 mg EVERY 12 HOURS ORAL 03/16/19 21:00 04/15/19 20:59 03/25/19 08:31 Janette Stallworth M.D. Mar 25, 2019 12:01
[2019-03-25] MEDS ORDERED: Isovue-300 100ml vial INJ PRN (15:00)
[2019-03-25] MEDS ORDERED: Gastrograffin 30ml ORAL PRN (15:00)
[2019-03-25 16:00] VITALS: BP 120/72
--- NOTE | 2019-03-25 16:01 | Internal Med Progress Note ---
Subjective Physician Name Marcos Silva Attending Physician Marcos Silva MD Current Medications Medications (Trade) Dose Ordered Sig/Shantelle Route PRN Reason Start Time Stop Time Status Last Admin Dose Admin Acetaminophen (Tylenol) 650 mg Q4H PRN ORAL Mild Pain/Temp > 100.5 03/19/19 16:00 04/18/19 15:59 03/19/19 21:23 Cefepime HCl 1 gm/ Dextrose 55 ml @ 110 mls/hr EVERY 12 HOURS IVPB 03/22/19 13:00 03/29/19 12:59 03/25/19 09:54 Dextrose (Dextrose 50%) 25 ml Q30M PRN IV Hypoglycemia 03/23/19 08:45 04/22/19 08:44 Dextrose (Dextrose 50%) 50 ml Q30M PRN IV Hypoglycemia 03/23/19 08:45 04/22/19 08:44 Diatrizoate Meglum/ Diatrizoate Sod (Gastrografin) 30 ml NOW PRN ORAL Radiology Procedure 03/25/19 15:00 03/27/19 14:59 Glipizide (Glucotrol) 5 mg BIAC ORAL 03/21/19 16:30 04/20/19 16:29 03/25/19 06:27 Heparin Sodium (Porcine) (Heparin 5000 units/ml) 5,000 units EVERY 12 HOURS SUBQ 03/13/19 21:00 04/09/19 20:59 03/24/19 20:57 Insulin Aspart (NovoLOG) BEFORE MEALS AND HS SUBQ 03/23/19 11:30 04/22/19 11:29 03/25/19 11:43 Iopamidol (Isovue-300 100ml) 100 ml NOW PRN INJ Radiology Procedure 03/25/19 15:00 03/27/19 14:59 Metronidazole (Flagyl) 500 mg Q8HR ORAL 03/23/19 14:00 03/30/19 13:59 03/25/19 13:47 Nateglinide (Starlix) 120 mg TIAC ORAL 03/23/19 11:30 04/22/19 11:29 03/25/19 11:42 Ondansetron HCl (Zofran) 4 mg Q6H PRN IVP Nausea & Vomiting 03/13/19 19:15 04/09/19 13:14 Pantoprazole (Protonix) 40 mg EVERY 12 HOURS ORAL 03/16/19 21:00 04/15/19 20:59 03/25/19 08:31 Allergies: Coded Allergies: No Known Allergies (Unverified , 03/10/19) Subjective awake, alert, responsive, WBC: 15.3 Objective Last Vital Signs Date Time Temp Pulse Resp B/P (MAP) Pulse Ox O2 Delivery O2 Flow Rate FiO2 03/25/19 12:00 98.0 91 17 118/60 (79) 96 03/25/19 09:00 Room Air 03/24/19 11:50 21 Laboratory Tests Test 03/25/19 05:20 White Blood Count 15.3 K/UL (4.8-10.8) H Red Blood Count 3.38 M/UL (4.20-5.40) L Hemoglobin 9.6 G/DL (12.0-16.0) L Hematocrit 29.9 % (37.0-47.0) L Mean Corpuscular Volume 89 FL (80-99) Mean Corpuscular Hemoglobin 28.3 PG (27.0-31.0) Mean Corpuscular Hemoglobin Concent 31.9 G/DL (32.0-36.0) L Red Cell Distribution Width 15.5 % (11.6-14.8) H Platelet Count 454 K/UL (150-450) H Mean Platelet Volume 7.2 FL (6.5-10.1) Neutrophils (%) (Auto) 76.2 % (45.0-75.0) H Lymphocytes (%) (Auto) 11.4 % (20.0-45.0) L Monocytes (%) (Auto) 10.7 % (1.0-10.0) H Eosinophils (%) (Auto) 0.8 % (0.0-3.0) Basophils (%) (Auto) 1.0 % (0.0-2.0) Sodium Level 136 MMOL/L (136-145) Potassium Level 4.2 MMOL/L (3.5-5.1) Chloride Level 104 MMOL/L (98-107) Carbon Dioxide Level 21 MMOL/L (21-32) Anion Gap 11 mmol/L (5-15) Blood Urea Nitrogen 10 mg/dL (7-18) Creatinine 0.6 MG/DL (0.55-1.30) Estimat Glomerular Filtration Rate mL/min (>60) Glucose Level 226 MG/DL (74-106) H Calcium Level 9.3 MG/DL (8.5-10.1) Phosphorus Level 2.4 MG/DL (2.5-4.9) L Magnesium Level 1.6 MG/DL (1.8-2.4) L Total Bilirubin 0.4 MG/DL (0.2-1.0) Aspartate Amino Transf (AST/SGOT) 43 U/L (15-37) H Alanine Aminotransferase (ALT/SGPT) 29 U/L (12-78) Alkaline Phosphatase 263 U/L (46-116) H C-Reactive Protein, Quantitative 18.1 mg/dL (0.00-0.90) H Pro-B-Type Natriuretic Peptide 396 pg/mL (0-125) H Total Protein 5.7 G/DL (6.4-8.2) L Albumin 1.7 G/DL (3.4-5.0) L Globulin 4.0 g/dL Albumin/Globulin Ratio 0.4 (1.0-2.7) L Microbiology Date/Time Source Procedure Growth Status 03/23/19 20:44 Blood Blood Culture - Preliminary NO GROWTH AFTER 24 HOURS Resulted Intake and Output 03/24/19 03/25/19 18:59 06:59 Intake Total 584 ml 400 ml Balance 584 ml 400 ml Intake Oral 474 ml 400 ml IV Total 110 ml # Voids 3 3 # Bowel Movements 2 2 Objective General: No acute distress, awake and alert HEENT: NCAT, sclera anicteric, PERRL, EOMI. Neck: Supple, no significant jugular venous distention, Lungs: clear to auscultation bilaterally, no Wheeze or Rales. Heart: Regular rate and rhythm, normal S1/S2, no murmur Abdomen: soft, not tender, Not distended. midline surgical incision with intact dressing. Extremities: No Cyanosis , clubbing or edema. Neuro: A&O x 3, Able to move all extremities Skin: warm, no rash. Assessment/Plan Assessment/Plan ASSESSMENT: This is an 84-year-old female. 1. Perforated abdominal viscus S/P Exploratory laparotomy, Partial omentectomy, and Shane patch for repair of perforated pre-pyloric ulcer (03/10/2019). 2. Acute respiratory Failure. 3. Nausea with vomiting. 4. Diabetes type 2. 5. Hypertension. TREATMENT: 1. Perforated abdominal viscus. A General Surgery consultation has been obtained with Dr. Sheth. S/P Exploratory laparotomy, Partial omentectomy, and Shane patch for repair of perforated pre-pyloric ulcer (03/10/2019). 2. Diabetes type 2. NovoLog sliding scale has been instituted. 3. Hypertension. The patient is currently hypotensive. 4. Respiratory failure. The patient is currently intubated in the intensive care unit. A Pulmonary consultation has been obtained with Dr. Bibiana Pennington. Abx: Cefepime and Flagyl DC planning soon. Marcos Silva MD Mar 25, 2019 16:01
--- NOTE | 2019-03-25 16:11 | NUR ---
P.T WEEKLY PROGRESS NOTES: PATIENT SEEN THIS PAST WEEK OF P.T SERVICES TO INCREASE HER STRENGTH, BALANCE AND FUNCTIONAL MOBILITY INDEPENDENCE. PATIENT'S LEVEL OF ASSISTANCE FLUCTUATES FROM MIN-MOD A X 1 FOR BED MOBILITIES AND TRANSFERS DEPENDING ON ENDURANCE AND TOLERANCE LEVEL . PATIENT ABLE TO AMBULATE AND TOLERATE DISTANCE FROM 25-150 FEET WITH CGA-MOD A X 1 DEPENDING ON ENDURANCE AND TOLERANCE LEVEL. PROGRESS IS LIMITED BY DECREASED ACTIVITY TOLERANCE SECONDARY TO DECREASED FOOD INTAKE. PATIENT IS COOPERATIVE AND MOTIVATED TO GET STRONGER AND RETURN TO PLOF. WILL CONTINUE WITH POC.
--- NOTE | 2019-03-25 17:40 | NUR ---
NURSE NOTES: OB stool collected and sent to lab; MD Stallworth notified; waiting for result.
--- NOTE | 2019-03-25 17:45 | NUR ---
NURSE NOTES: There is an order for CT Abdomen/Pelvis w/contrast; I called to get a telephone consent from patient next of kin, Vince Tana; she doesn't understand telugu and charge nurse notified regarding the matter;
--- NOTE | 2019-03-25 19:19 | NUR ---
HAND-OFF: Report given to SARAI Morgan.
--- NOTE | 2019-03-25 19:20 | NUR ---
NURSE NOTES: Report taken from SARAI Veloz. Patient is asleep arousable by name, family at bedside. A&Ox4. Patient to undergo procedure in the AM, needs consent signed. Discussed with family the procedure, will discuss and get consent when patient is more alert. IV site c/d/i and patent, no fluids running. Triad cream and optifoam on low back for precaution. Bed in lowest position, call light within reach.
[2019-03-25 20:00] VITALS: BP 117/58
--- NOTE | 2019-03-25 20:48 | NUR ---
NURSE NOTES: Spoke with Dr. Sheth over the phone. stated that patient does not need to be NPO at 0000 03/26/19 for any reason.
--- NOTE | 2019-03-25 21:20 | NUR ---
NURSE NOTES: Upon further assessment of patient sacral area, small stage 1 wound noted right above buttock. Pictures taken and uploaded, endorse to day shift to obtain consult with wound care nurse. Addendum: 03/26/19 at 0009 by Marquez Freeman RN Triad cream and optifoam placed over area of concern.
[2019-03-26] VITALS: BP 119/58
[2019-03-26 04:00] VITALS: BP 118/64
[2019-03-26] MEDS: GlipiZIDE 5mg tab ORAL SCH ×2 (05:57→16:56)
[2019-03-26] MEDS: metroNIDAZOLE 500mg tab ORAL SCH ×3 (05:58→20:42)
[2019-03-26] MEDS: NovoLOG Insulin Flexpen SUBQ SCH ×4 (05:59→20:41)
[2019-03-26 06:41] LABS: BASOPHILS % (AUTO) 0.9 % (0.0-2.0); EOSINOPHILS % (AUTO) 0.9 % (0.0-3.0); HEMATOCRIT 31.1 % (37.0-47.0); HEMOGLOBIN 9.8 G/DL (12.0-16.0); LYMPHOCYTES % (AUTO) 11.7 % (20.0-45.0); MEAN CORPUSCULAR VOLUME 88 FL (80-99); MONOCYTES % (AUTO) 10.7 % (1.0-10.0); NEUTROPHILS % (AUTO) 75.8 % (45.0-75.0); PLATELET COUNT 491 K/UL (150-450); RED BLOOD COUNT 3.54 M/UL (4.20-5.40); RED CELL DISTRIBUTION WIDTH 15.9 % (11.6-14.8); WHITE BLOOD COUNT 15.6 K/UL (4.8-10.8)
[2019-03-26 07:01] LABS: ALANINE AMINOTRANSFERASE 23 U/L (12-78); ALBUMIN 1.8 G/DL (3.4-5.0); ALBUMIN/GLOBULIN RATIO 0.4 (1.0-2.7); ALKALINE PHOSPHATASE 243 U/L (46-116); ANION GAP 11 mmol/L (5-15); ASPARTATE AMINO TRANSFERASE 28 U/L (15-37); BILIRUBIN,TOTAL 0.5 MG/DL (0.2-1.0); BLOOD UREA NITROGEN 10 mg/dL (7-18); CALCIUM 9.2 MG/DL (8.5-10.1); CARBON DIOXIDE 22 MMOL/L (21-32); CHLORIDE 104 MMOL/L (98-107); CREATININE 0.5 MG/DL (0.55-1.30); SODIUM 137 MMOL/L (136-145)
--- NOTE | 2019-03-26 07:30 | NUR ---
HAND-OFF: Report given to SARAI Hernandez. Patient is asleep and in bed. Endorsed to David to contact wound care nurse for consult.
[2019-03-26 08:00] VITALS: BP 124/67
[2019-03-26] MEDS: Cefepime HCl 1 GM in D5W 55 ML IVPB SCH ×2 (08:52→20:43)
[2019-03-26] MEDS: Heparin 5000 units/ml inj SUBQ SCH ×2 (08:58→20:42)
--- NOTE | 2019-03-26 10:46 | NUR ---
RD ASSESSMENT & RECOMMENDATIONS SEE CARE ACTIVITY FOR COMPLETE ASSESSMENT DAILY ESTIMATED NEEDS: Needs based on Surgery, DM / 53.6kg 25-35 kcals/kg 2444-7221 total kcals 1-2 g protein/kg 54-107 g total protein 25-30 mL/kg 4594-1831 total fluid mLs NUTRITION DIAGNOSIS: * Altered GI function R/T perforated gastric ulcer as evidenced by s/p ex lap, abdominal washout, partial omentectomy, imelda patch for repair of perforated pre-pyloric ulcer, diet now advanced to regular. * Altered nutrition related lab values R/T diabetes, clinical condition as evidenced by elev BGs (177 226 332), POC glu (197-416), A1C 10.2, urine glucose 4+, low phos and mg, elev triglycerides (300). CURRENT DIET:Regular + Glucerna TID PO DIET RECOMMENDATIONS: BLAND, CCHO LOW DIET ADDITIONAL RECOMMENDATIONS: * Monitor BGs closely, consider long acting insulin -> POC glu (197-416) * Calibrated bedscale wt for accurate CBW * Monitor lytes, replete as needed (low mag+phos) * Lipid lowering agent for elev triglyceride (300) * Monitor PO intake and tolerance closely * F/up wound eval: rec add MVI x 1, Vit C 250mg QD
[2019-03-26 11:44] VITALS: BP 129/64
--- NOTE | 2019-03-26 12:14 | Infectious Diseases Prog Note ---
Assessment/Plan Assessment/Plan Probable Sepsis Fever- r/o infectious Leukocytosis, recurrent, increasing- monitor closely for interval development of intraabdominal abscess -03/22 CXR: Cardiomegaly.Bilateral basilar atelectasis or scarring. Decreased left pleural fluid u/a neg -03/21 BCx NTD -03/20 CXR: Subsegmental atelectasis versus infiltrate in the left lung base. -03/19 u/a neg Cdiff neg -v/ duplex no DVT Perforated pre-pyloric gastric ulcer -03/15 s/p UGI series: Negative for postoperative leak -03/10 SP 03/10 SP Exploratory Laparotomy, Abdominal washout. Partial omentectomy. Shane patch for repair of perforated pre-pyloric ulcer. -03/10 CT abd/p: Free intraperitoneal gas. Etiology not completely certain, but gas within and extending from the anterior gastric antral wall is suspicious for a perforated gastric ulcer. Perforated descending colon diverticulitis also possible but deemed much less likely. Free intraperitoneal fluid, presumably related to the above. Fatty liver. Basilar pulmonary parenchymal groundglass opacities. This could indicate pulmonary edema, among other possibilities. Subcentimeter low-attenuation renal lesions, too small to characterize, most likely benign simple cyst. No further follow-up necessary. 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 Acute encephalopathy -CT head: Chronic and age-related changes. Negative for acute intracranial bleed or mass effect VDRF, post-op; extubated 03/12 DARRON, SP Dm2 HTN Plan: -Cont empiric Cefepime #5 and PO Flagyl #4 for now -03/22 SP Fluconazole #10 -03/15 SP Zosyn #6 -03/10 SP IV Vancomycin #1, Ancef x1 -f/u cx -Monitor CBC/CMP, temperatures -Sx f/u -wound care per surgical team -aspiration precautions -f/u BCx x2 -Will get CT abd/p w/ IV and PO contrast if WBC >15 Subjective Allergies: Coded Allergies: No Known Allergies (Unverified , 03/10/19) Subjective Afebrile Leukcoytosis still increasing today Objective Vital Signs Last 24 Hour Vital Signs Date Time Temp Pulse Resp B/P (MAP) Pulse Ox O2 Delivery O2 Flow Rate FiO2 03/26/19 11:44 98.0 96 16 129/64 (85) 98 03/26/19 09:00 Room Air 03/26/19 08:00 99.3 95 18 124/67 (86) 95 03/26/19 04:00 98.4 81 18 118/64 (82) 98 03/26/19 00:00 98.6 84 18 119/58 (78) 98 03/25/19 21:00 Room Air 03/25/19 20:12 96 Room Air 21 03/25/19 20:00 98.1 88 18 117/58 (77) 97 03/25/19 16:00 98.4 72 20 120/72 (88) 99 Height (Feet): 5 Height (Inches): 0.00 Weight (Pounds): 112 Objective General appearance: NAD Head: NCAT, MMM, EOMI Lungs: clear to auscultation bilaterally, No W Heart: regular rate and rhythm, S1, S2 Abdomen: soft, TTP Bowel sounds normal.s Microbiology Date/Time Source Procedure Growth Status 03/23/19 20:44 Blood Blood Culture - Preliminary NO GROWTH AFTER 48 HOURS Resulted Laboratory Tests Test 03/25/19 15:30 03/26/19 05:10 Stool Occult Blood Negative (NEGATIVE) White Blood Count 15.6 K/UL (4.8-10.8) H Red Blood Count 3.54 M/UL (4.20-5.40) L Hemoglobin 9.8 G/DL (12.0-16.0) L Hematocrit 31.1 % (37.0-47.0) L Mean Corpuscular Volume 88 FL (80-99) Mean Corpuscular Hemoglobin 27.8 PG (27.0-31.0) Mean Corpuscular Hemoglobin Concent 31.7 G/DL (32.0-36.0) L Red Cell Distribution Width 15.9 % (11.6-14.8) H Platelet Count 491 K/UL (150-450) H Mean Platelet Volume 7.3 FL (6.5-10.1) Neutrophils (%) (Auto) 75.8 % (45.0-75.0) H Lymphocytes (%) (Auto) 11.7 % (20.0-45.0) L Monocytes (%) (Auto) 10.7 % (1.0-10.0) H Eosinophils (%) (Auto) 0.9 % (0.0-3.0) Basophils (%) (Auto) 0.9 % (0.0-2.0) Erythrocyte Sedimentation Rate 116 MM/HR (0-30) H Sodium Level 137 MMOL/L (136-145) Potassium Level 4.0 MMOL/L (3.5-5.1) Chloride Level 104 MMOL/L (98-107) Carbon Dioxide Level 22 MMOL/L (21-32) Anion Gap 11 mmol/L (5-15) Blood Urea Nitrogen 10 mg/dL (7-18) Creatinine 0.5 MG/DL (0.55-1.30) L Estimat Glomerular Filtration Rate mL/min (>60) Glucose Level 177 MG/DL (74-106) H Calcium Level 9.2 MG/DL (8.5-10.1) Total Bilirubin 0.5 MG/DL (0.2-1.0) Aspartate Amino Transf (AST/SGOT) 28 U/L (15-37) Alanine Aminotransferase (ALT/SGPT) 23 U/L (12-78) Alkaline Phosphatase 243 U/L (46-116) H C-Reactive Protein, Quantitative 12.3 mg/dL (0.00-0.90) H Total Protein 5.8 G/DL (6.4-8.2) L Albumin 1.8 G/DL (3.4-5.0) L Globulin 4.0 g/dL Albumin/Globulin Ratio 0.4 (1.0-2.7) L Current Medications Medications (Trade) Dose Ordered Sig/Shantelle Route PRN Reason Start Time Stop Time Status Last Admin Dose Admin Acetaminophen (Tylenol) 650 mg Q4H PRN ORAL Mild Pain/Temp > 100.5 03/19/19 16:00 04/18/19 15:59 03/19/19 21:23 Cefepime HCl 1 gm/ Dextrose 55 ml @ 110 mls/hr EVERY 12 HOURS IVPB 03/22/19 13:00 03/29/19 12:59 03/26/19 08:52 Dextrose (Dextrose 50%) 25 ml Q30M PRN IV Hypoglycemia 03/23/19 08:45 04/22/19 08:44 Dextrose (Dextrose 50%) 50 ml Q30M PRN IV Hypoglycemia 03/23/19 08:45 04/22/19 08:44 Diatrizoate Meglum/ Diatrizoate Sod (Gastrografin) 30 ml NOW PRN ORAL Radiology Procedure 03/25/19 15:00 03/27/19 14:59 Glipizide (Glucotrol) 5 mg BIAC ORAL 03/21/19 16:30 04/20/19 16:29 03/26/19 05:57 Heparin Sodium (Porcine) (Heparin 5000 units/ml) 5,000 units EVERY 12 HOURS SUBQ 03/13/19 21:00 04/09/19 20:59 03/26/19 08:58 Insulin Aspart (NovoLOG) BEFORE MEALS AND HS SUBQ 03/23/19 11:30 04/22/19 11:29 03/26/19 05:59 Iopamidol (Isovue-300 100ml) 100 ml NOW PRN INJ Radiology Procedure 03/25/19 15:00 03/27/19 14:59 Metronidazole (Flagyl) 500 mg Q8HR ORAL 03/23/19 14:00 03/30/19 13:59 03/26/19 05:58 Nateglinide (Starlix) 120 mg TIAC ORAL 03/23/19 11:30 04/22/19 11:29 03/26/19 05:57 Ondansetron HCl (Zofran) 4 mg Q6H PRN IVP Nausea & Vomiting 03/13/19 19:15 04/09/19 13:14 Pantoprazole (Protonix) 40 mg EVERY 12 HOURS ORAL 03/16/19 21:00 04/15/19 20:59 03/26/19 08:52 Andrea Quiroz MD Mar 26, 2019 12:14
--- NOTE | 2019-03-26 12:23 | Nephrology Progress Note ---
Assessment/Plan Assessment/Plan: A/P 1) Perforated abdominal viscus- per gen surgery 2) Hypokalemia- corrected 3) Hypomagnesemia- recheck level in am with phos (4) Diabetes mellitus- per PCP Renal function normal Subjective Date patient seen: Mar 26, 2019 Time patient seen: 12:19 ROS Limited/Unobtainable: No Allergies: Coded Allergies: No Known Allergies (Unverified , 03/10/19) Subjective Patient in no overt distress Objective Last 24 Hour Vital Signs Date Time Temp Pulse Resp B/P (MAP) Pulse Ox O2 Delivery O2 Flow Rate FiO2 03/26/19 11:44 98.0 96 16 129/64 (85) 98 03/26/19 09:00 Room Air 03/26/19 08:00 99.3 95 18 124/67 (86) 95 03/26/19 04:00 98.4 81 18 118/64 (82) 98 03/26/19 00:00 98.6 84 18 119/58 (78) 98 03/25/19 21:00 Room Air 03/25/19 20:12 96 Room Air 21 03/25/19 20:00 98.1 88 18 117/58 (77) 97 03/25/19 16:00 98.4 72 20 120/72 (88) 99 Intake and Output 03/25/19 03/26/19 19:00 07:00 Intake Total 1270 ml 480 ml Balance 1270 ml 480 ml Intake Oral 960 ml 480 ml IV Total 310 ml # Voids 1 3 # Bowel Movements 1 Laboratory Tests 03/25/19 15:30: Stool Occult Blood Negative 03/26/19 05:10: White Blood Count 15.6H, Red Blood Count 3.54L, Hemoglobin 9.8L, Hematocrit 31.1L, Mean Corpuscular Volume 88, Mean Corpuscular Hemoglobin 27.8, Mean Corpuscular Hemoglobin Concent 31.7L, Red Cell Distribution Width 15.9H, Platelet Count 491H, Mean Platelet Volume 7.3, Neutrophils (%) (Auto) 75.8H, Lymphocytes (%) (Auto) 11.7L, Monocytes (%) (Auto) 10.7H, Eosinophils (%) (Auto ) 0.9, Basophils (%) (Auto) 0.9, Erythrocyte Sedimentation Rate 116H, Sodium Level 137, Potassium Level 4.0, Chloride Level 104, Carbon Dioxide Level 22, Anion Gap 11, Blood Urea Nitrogen 10, Creatinine 0.5L, Estimat Glomerular Filtration Rate , Glucose Level 177H, Calcium Level 9.2, Total Bilirubin 0.5, Aspartate Amino Transf (AST/SGOT) 28, Alanine Aminotransferase (ALT/SGPT) 23, Alkaline Phosphatase 243H, C-Reactive Protein, Quantitative 12.3H, Total Protein 5.8L, Albumin 1.8L, Globulin 4.0, Albumin/Globulin Ratio 0.4L Height (Feet): 5 Height (Inches): 0.00 Weight (Pounds): 112 Dami Holbrook MD Mar 26, 2019 12:23
--- NOTE | 2019-03-26 14:04 | Internal Med Progress Note ---
Subjective Date of Service: Mar 26, 2019 Physician Name Zen Paige Attending Physician Marcos Silva MD Current Medications Medications (Trade) Dose Ordered Sig/Shantelle Route PRN Reason Start Time Stop Time Status Last Admin Dose Admin Acetaminophen (Tylenol) 650 mg Q4H PRN ORAL Mild Pain/Temp > 100.5 03/19/19 16:00 04/18/19 15:59 03/19/19 21:23 Cefepime HCl 1 gm/ Dextrose 55 ml @ 110 mls/hr EVERY 12 HOURS IVPB 03/22/19 13:00 03/29/19 12:59 03/26/19 08:52 Dextrose (Dextrose 50%) 25 ml Q30M PRN IV Hypoglycemia 03/23/19 08:45 04/22/19 08:44 Dextrose (Dextrose 50%) 50 ml Q30M PRN IV Hypoglycemia 03/23/19 08:45 04/22/19 08:44 Diatrizoate Meglum/ Diatrizoate Sod (Gastrografin) 30 ml NOW PRN ORAL Radiology Procedure 03/25/19 15:00 03/27/19 14:59 Glipizide (Glucotrol) 5 mg BIAC ORAL 03/21/19 16:30 04/20/19 16:29 03/26/19 05:57 Heparin Sodium (Porcine) (Heparin 5000 units/ml) 5,000 units EVERY 12 HOURS SUBQ 03/13/19 21:00 04/09/19 20:59 03/26/19 08:58 Insulin Aspart (NovoLOG) BEFORE MEALS AND HS SUBQ 03/23/19 11:30 04/22/19 11:29 03/26/19 12:22 Iopamidol (Isovue-300 100ml) 100 ml NOW PRN INJ Radiology Procedure 03/25/19 15:00 03/27/19 14:59 Metronidazole (Flagyl) 500 mg Q8HR ORAL 03/23/19 14:00 03/30/19 13:59 03/26/19 05:58 Nateglinide (Starlix) 120 mg TIAC ORAL 03/23/19 11:30 04/22/19 11:29 03/26/19 12:18 Ondansetron HCl (Zofran) 4 mg Q6H PRN IVP Nausea & Vomiting 03/13/19 19:15 04/09/19 13:14 Pantoprazole (Protonix) 40 mg EVERY 12 HOURS ORAL 03/16/19 21:00 04/15/19 20:59 03/26/19 08:52 Allergies: Coded Allergies: No Known Allergies (Unverified , 03/10/19) ROS Limited/Unobtainable: No Constitutional: Reports: no symptoms HEENT: Reports: no symptoms Cardiovascular: Reports: no symptoms Respiratory: Reports: no symptoms Gastrointestinal/Abdominal: Reports: no symptoms Genitourinary: Reports: no symptoms Neurologic/Psychiatric: Reports: no symptoms Subjective 84 YO F admitted with abdominal pain. S/P exploratory laparotomy 03/10/19. Cover for Int [facility]-Dr Silva. Objective Last Vital Signs Date Time Temp Pulse Resp B/P (MAP) Pulse Ox O2 Delivery O2 Flow Rate FiO2 03/26/19 11:44 98.0 96 16 129/64 (85) 98 03/26/19 09:00 Room Air 03/25/19 20:12 21 Laboratory Tests Test 03/25/19 15:30 03/26/19 05:10 Stool Occult Blood Negative (NEGATIVE) White Blood Count 15.6 K/UL (4.8-10.8) H Red Blood Count 3.54 M/UL (4.20-5.40) L Hemoglobin 9.8 G/DL (12.0-16.0) L Hematocrit 31.1 % (37.0-47.0) L Mean Corpuscular Volume 88 FL (80-99) Mean Corpuscular Hemoglobin 27.8 PG (27.0-31.0) Mean Corpuscular Hemoglobin Concent 31.7 G/DL (32.0-36.0) L Red Cell Distribution Width 15.9 % (11.6-14.8) H Platelet Count 491 K/UL (150-450) H Mean Platelet Volume 7.3 FL (6.5-10.1) Neutrophils (%) (Auto) 75.8 % (45.0-75.0) H Lymphocytes (%) (Auto) 11.7 % (20.0-45.0) L Monocytes (%) (Auto) 10.7 % (1.0-10.0) H Eosinophils (%) (Auto) 0.9 % (0.0-3.0) Basophils (%) (Auto) 0.9 % (0.0-2.0) Erythrocyte Sedimentation Rate 116 MM/HR (0-30) H Sodium Level 137 MMOL/L (136-145) Potassium Level 4.0 MMOL/L (3.5-5.1) Chloride Level 104 MMOL/L (98-107) Carbon Dioxide Level 22 MMOL/L (21-32) Anion Gap 11 mmol/L (5-15) Blood Urea Nitrogen 10 mg/dL (7-18) Creatinine 0.5 MG/DL (0.55-1.30) L Estimat Glomerular Filtration Rate mL/min (>60) Glucose Level 177 MG/DL (74-106) H Calcium Level 9.2 MG/DL (8.5-10.1) Total Bilirubin 0.5 MG/DL (0.2-1.0) Aspartate Amino Transf (AST/SGOT) 28 U/L (15-37) Alanine Aminotransferase (ALT/SGPT) 23 U/L (12-78) Alkaline Phosphatase 243 U/L (46-116) H C-Reactive Protein, Quantitative 12.3 mg/dL (0.00-0.90) H Total Protein 5.8 G/DL (6.4-8.2) L Albumin 1.8 G/DL (3.4-5.0) L Globulin 4.0 g/dL Albumin/Globulin Ratio 0.4 (1.0-2.7) L Microbiology Date/Time Source Procedure Growth Status 03/23/19 20:44 Blood Blood Culture - Preliminary NO GROWTH AFTER 48 HOURS Resulted Intake and Output 03/25/19 03/26/19 18:59 06:59 Intake Total 1270 ml 480 ml Balance 1270 ml 480 ml Intake Oral 960 ml 480 ml IV Total 310 ml # Voids 1 3 # Bowel Movements 1 Objective PHYSICAL EXAMINATION: GENERAL: The patient is a well developed, well nourished female who is intubated and sedated. HEENT: Eyes, pupils equal and responsive to light and accommodation. Extraocular movements are intact. NECK: Supple without lymphadenopathy. CHEST: Nasc canula; Few diffuse wheezes bilaterally. Otherwise, without wheezes or rales. CARDIOVASCULAR: Regular rhythm rate. S1-S2 are normal without murmurs, rubs, or gallops. ABDOMEN: NGT; Soft, nontender with decreased bowel sounds. No evidence of hepatosplenomegaly. no rebound or guarding noted. EXTREMITIES: Negative for clubbing, cyanosis, edema. RECTAL/GENITAL: Not performed. NEUROLOGIC: Cranial nerves II through XII are grossly intact without focal deficits. Assessment/Plan Assessment/Plan ASSESSMENT: This is an 84-year-old female. 1. Perforated gastric ulcer 2. Abdominal pain. 3. Nausea with vomiting. 4. Diabetes type 2. 5. Hypertension. 6. Post Op fever-resolved 7. Leukocytosis TREATMENT: 1. Perforated gastric ulcer. A General Surgery consultation has been obtained with Dr. Sheth. S/P exploratory laparotomy 03/10/19=perforated Pre pyloric ulcer. Tolerating regular diet; NGT discontinued per surgery 2. Diabetes type 2. NovoLog sliding scale has been instituted. 3. Hypertension. The patient is currently hypotensive. 4. Respiratory failure. S/P extubation 03/12/19. A Pulmonary consultation has been obtained with Dr. Bibiana Pennington. 5. Med/surg 6. Discharge held by ID because of elevated WBC-No accepting home health agency- See discharge planning note. Discharge prescriptions written 7. ABX=cefepime and flagyl per ID Zen Paige MD Mar 26, 2019 14:04
[2019-03-26] MEDS ORDERED: Tubing IV Secondary IV ONE (14:23)
--- NOTE | 2019-03-26 14:42 | NUR ---
NURSE NOTES: PT ABLE TO AMBULATE WITH WALKER AND ASSIST. IN NO APPARENT DISTRESS AT THIS TIME. DENIES PAIN. FAMILY AT BEDSIDE. WILL CONTINUE TO MONITOR.
[2019-03-26 16:00] VITALS: BP 131/69
--- NOTE | 2019-03-26 17:34 | NUR ---
NURSE NOTES: RN LEFT MESSAGE FOR BLOOD SUGAR 401. PT WAS EATING SNACKS BROUGHT BY FAMILY BEFORE RN PERFORMED BLOOD SUGAR CHECK. IN NO APPARENT DISTRESS AT THIS TIME. VSS.
--- NOTE | 2019-03-26 19:36 | NUR ---
HAND-OFF: Report given to Jan JANE RN AND Jc DEL CASTILLO RN.
[2019-03-26 20:00] VITALS: BP 120/69
--- NOTE | 2019-03-26 20:17 | NUR ---
NURSE NOTES: Received report from SARAI Hernandez. Patient is resting comfortably in bed. Abdominal surgical site and dressing is c/d/i. Patient denies pain or SOB. Family at bedside.
[2019-03-27] VITALS: BP 105/56
[2019-03-27 04:00] VITALS: BP 116/57
[2019-03-27 05:10] LABS: BASOPHILS % (AUTO) 1.3 % (0.0-2.0); EOSINOPHILS % (AUTO) 0.9 % (0.0-3.0); HEMATOCRIT 33.1 % (37.0-47.0); HEMOGLOBIN 10.5 G/DL (12.0-16.0); LYMPHOCYTES % (AUTO) 13.9 % (20.0-45.0); MEAN CORPUSCULAR VOLUME 88 FL (80-99); MONOCYTES % (AUTO) 11.5 % (1.0-10.0); NEUTROPHILS % (AUTO) 72.4 % (45.0-75.0); PLATELET COUNT 508 K/UL (150-450); RED BLOOD COUNT 3.77 M/UL (4.20-5.40); RED CELL DISTRIBUTION WIDTH 16.1 % (11.6-14.8); WHITE BLOOD COUNT 15.9 K/UL (4.8-10.8)
[2019-03-27 05:31] LABS: ANION GAP 11 mmol/L (5-15); BLOOD UREA NITROGEN 12 mg/dL (7-18); CALCIUM 9.7 MG/DL (8.5-10.1); CARBON DIOXIDE 21 MMOL/L (21-32); CHLORIDE 103 MMOL/L (98-107); CREATININE 0.6 MG/DL (0.55-1.30); PHOSPHORUS 3.3 MG/DL (2.5-4.9); POTASSIUM 4.3 MMOL/L (3.5-5.1); SODIUM 134 MMOL/L (136-145)
[2019-03-27] MEDS: GlipiZIDE 5mg tab ORAL SCH ×2 (06:18→17:13)
[2019-03-27] MEDS: metroNIDAZOLE 500mg tab ORAL SCH ×3 (06:18→21:11)
[2019-03-27] MEDS: NovoLOG Insulin Flexpen SUBQ SCH ×4 (06:19→21:18)
[2019-03-27 08:00] VITALS: BP 130/73
--- NOTE | 2019-03-27 09:42 | General Progress Note ---
Progress Note Progress Note leukocytosis pending CT results tolerating diet +BM exam stable wound c/d/i will await final CT a/p results work up for etiology of leukocytosis over all looks improved Mike Sheth Mar 27, 2019 09:42
[2019-03-27] MEDS: Cefepime HCl 1 GM in D5W 55 ML IVPB SCH ×2 (09:56→21:14)
[2019-03-27] MEDS: Heparin 5000 units/ml inj SUBQ SCH ×2 (09:57→21:19)
--- NOTE | 2019-03-27 11:03 | Nephrology Progress Note ---
Assessment/Plan Assessment/Plan: A/P 1) Perforated abdominal viscus- per gen surgery 2) Hypokalemia- corrected 3) Hypomagnesemia- will replace today with 1 gm IV (4) Diabetes mellitus- per PCP Renal function normal Subjective Allergies: Coded Allergies: No Known Allergies (Unverified , 03/10/19) Subjective Patient in no overt distress Objective Last 24 Hour Vital Signs Date Time Temp Pulse Resp B/P (MAP) Pulse Ox O2 Delivery O2 Flow Rate FiO2 03/27/19 04:00 98.3 92 16 116/57 (76) 97 03/27/19 00:00 98.6 86 16 105/56 (72) 97 03/26/19 21:00 Room Air 03/26/19 20:00 98.8 98 18 120/69 (86) 98 03/26/19 16:00 98.6 99 16 131/69 (89) 96 03/26/19 11:44 98.0 96 16 129/64 (85) 98 Intake and Output 03/26/19 03/27/19 19:00 07:00 Intake Total 480 ml Balance 480 ml Intake Oral 480 ml # Voids 2 2 # Bowel Movements 1 2 Laboratory Tests 03/27/19 04:40: White Blood Count 15.9H, Red Blood Count 3.77L, Hemoglobin 10.5L, Hematocrit 33.1L, Mean Corpuscular Volume 88, Mean Corpuscular Hemoglobin 27.8, Mean Corpuscular Hemoglobin Concent 31.7L, Red Cell Distribution Width 16.1H, Platelet Count 508H, Mean Platelet Volume 6.8, Neutrophils (%) (Auto) 72.4, Lymphocytes (%) (Auto) 13.9L, Monocytes (%) (Auto) 11.5H, Eosinophils (%) (Auto ) 0.9, Basophils (%) (Auto) 1.3, Sodium Level 134L, Potassium Level 4.3, Chloride Level 103, Carbon Dioxide Level 21, Anion Gap 11, Blood Urea Nitrogen 12, Creatinine 0.6, Estimat Glomerular Filtration Rate , Glucose Level 193H, Calcium Level 9.7, Phosphorus Level 3.3, Magnesium Level 1.7L Height (Feet): 5 Height (Inches): 0.00 Weight (Pounds): 111 Dami Holbrook MD Mar 27, 2019 11:03
[2019-03-27 12:00] VITALS: BP 118/57
--- NOTE | 2019-03-27 13:44 | NUR ---
NURSE NOTES: Spoke to to verify contrast for CT abdomen and new order received. Order read back and carried out.
[2019-03-27 16:00] VITALS: BP 116/60
--- NOTE | 2019-03-27 17:22 | Internal Med Progress Note ---
Subjective Date of Service: Mar 27, 2019 Physician Name Zen Paige Attending Physician Marcos Silva MD Current Medications Medications (Trade) Dose Ordered Sig/Shantelle Route PRN Reason Start Time Stop Time Status Last Admin Dose Admin Acetaminophen (Tylenol) 650 mg Q4H PRN ORAL Mild Pain/Temp > 100.5 03/19/19 16:00 04/18/19 15:59 03/26/19 20:43 Barium Sulfate (Readi-Cat 2) 450 ml PRN PRN ORAL Radiology Procedure 03/27/19 13:30 04/26/19 13:29 Cefepime HCl 1 gm/ Dextrose 55 ml @ 110 mls/hr EVERY 12 HOURS IVPB 03/22/19 13:00 03/29/19 12:59 03/27/19 09:56 Dextrose (Dextrose 50%) 25 ml Q30M PRN IV Hypoglycemia 03/23/19 08:45 04/22/19 08:44 Dextrose (Dextrose 50%) 50 ml Q30M PRN IV Hypoglycemia 03/23/19 08:45 04/22/19 08:44 Glipizide (Glucotrol) 5 mg BIAC ORAL 03/21/19 16:30 04/20/19 16:29 03/27/19 17:13 Heparin Sodium (Porcine) (Heparin 5000 units/ml) 5,000 units EVERY 12 HOURS SUBQ 03/13/19 21:00 04/09/19 20:59 03/27/19 09:57 Insulin Aspart (NovoLOG) BEFORE MEALS AND HS SUBQ 03/23/19 11:30 04/22/19 11:29 03/27/19 17:14 Metronidazole (Flagyl) 500 mg Q8HR ORAL 03/23/19 14:00 03/30/19 13:59 03/27/19 14:33 Nateglinide (Starlix) 120 mg TIAC ORAL 03/23/19 11:30 04/22/19 11:29 03/27/19 17:13 Ondansetron HCl (Zofran) 4 mg Q6H PRN IVP Nausea & Vomiting 03/13/19 19:15 04/09/19 13:14 Pantoprazole (Protonix) 40 mg EVERY 12 HOURS ORAL 03/16/19 21:00 04/15/19 20:59 03/27/19 09:55 Allergies: Coded Allergies: No Known Allergies (Unverified , 03/10/19) ROS Limited/Unobtainable: No Constitutional: Reports: no symptoms HEENT: Reports: no symptoms Cardiovascular: Reports: no symptoms Respiratory: Reports: no symptoms Gastrointestinal/Abdominal: Reports: no symptoms Genitourinary: Reports: no symptoms Neurologic/Psychiatric: Reports: no symptoms Subjective 84 YO F admitted with abdominal pain. S/P exploratory laparotomy 03/10/19. Cover for Int [facility]-Dr Silva. Objective Last Vital Signs Date Time Temp Pulse Resp B/P (MAP) Pulse Ox O2 Delivery O2 Flow Rate FiO2 03/27/19 12:00 98.4 93 18 118/57 (77) 97 03/27/19 09:00 Room Air 03/25/19 20:12 21 Laboratory Tests Test 03/27/19 04:40 White Blood Count 15.9 K/UL (4.8-10.8) H Red Blood Count 3.77 M/UL (4.20-5.40) L Hemoglobin 10.5 G/DL (12.0-16.0) L Hematocrit 33.1 % (37.0-47.0) L Mean Corpuscular Volume 88 FL (80-99) Mean Corpuscular Hemoglobin 27.8 PG (27.0-31.0) Mean Corpuscular Hemoglobin Concent 31.7 G/DL (32.0-36.0) L Red Cell Distribution Width 16.1 % (11.6-14.8) H Platelet Count 508 K/UL (150-450) H Mean Platelet Volume 6.8 FL (6.5-10.1) Neutrophils (%) (Auto) 72.4 % (45.0-75.0) Lymphocytes (%) (Auto) 13.9 % (20.0-45.0) L Monocytes (%) (Auto) 11.5 % (1.0-10.0) H Eosinophils (%) (Auto) 0.9 % (0.0-3.0) Basophils (%) (Auto) 1.3 % (0.0-2.0) Sodium Level 134 MMOL/L (136-145) L Potassium Level 4.3 MMOL/L (3.5-5.1) Chloride Level 103 MMOL/L (98-107) Carbon Dioxide Level 21 MMOL/L (21-32) Anion Gap 11 mmol/L (5-15) Blood Urea Nitrogen 12 mg/dL (7-18) Creatinine 0.6 MG/DL (0.55-1.30) Estimat Glomerular Filtration Rate mL/min (>60) Glucose Level 193 MG/DL (74-106) H Calcium Level 9.7 MG/DL (8.5-10.1) Phosphorus Level 3.3 MG/DL (2.5-4.9) Magnesium Level 1.7 MG/DL (1.8-2.4) L Intake and Output 03/26/19 03/27/19 18:59 06:59 Intake Total 480 ml Balance 480 ml Intake Oral 480 ml # Voids 2 2 # Bowel Movements 1 2 Objective PHYSICAL EXAMINATION: GENERAL: The patient is a well developed, well nourished female who is intubated and sedated. HEENT: Eyes, pupils equal and responsive to light and accommodation. Extraocular movements are intact. NECK: Supple without lymphadenopathy. CHEST: Nasc canula; Few diffuse wheezes bilaterally. Otherwise, without wheezes or rales. CARDIOVASCULAR: Regular rhythm rate. S1-S2 are normal without murmurs, rubs, or gallops. ABDOMEN: NGT; Soft, nontender with decreased bowel sounds. No evidence of hepatosplenomegaly. no rebound or guarding noted. EXTREMITIES: Negative for clubbing, cyanosis, edema. RECTAL/GENITAL: Not performed. NEUROLOGIC: Cranial nerves II through XII are grossly intact without focal deficits. Assessment/Plan Assessment/Plan ASSESSMENT: This is an 84-year-old female. 1. Perforated gastric ulcer 2. Abdominal pain. 3. Nausea with vomiting. 4. Diabetes type 2. 5. Hypertension. 6. Post Op fever-resolved 7. Leukocytosis TREATMENT: 1. Perforated gastric ulcer. A General Surgery consultation has been obtained with Dr. Sheth. S/P exploratory laparotomy 03/10/19=perforated Pre pyloric ulcer. Tolerating regular diet; NGT discontinued per surgery 2. Diabetes type 2. NovoLog sliding scale has been instituted. 3. Hypertension. The patient is currently hypotensive. 4. Respiratory failure. S/P extubation 03/12/19. A Pulmonary consultation has been obtained with Dr. Bibiana Pennington. 5. Med/surg 6. Discharge held by ID because of elevated WBC-No accepting home health agency- See discharge planning note. Discharge prescriptions written 7. ABX=cefepime and flagyl per Zen Rangel MD Mar 27, 2019 17:22
--- NOTE | 2019-03-27 19:30 | NUR ---
HAND-OFF: Report given to Krishna MOON.
--- NOTE | 2019-03-27 19:30 | NUR ---
NURSE NOTES: Pt lying in bed w/family at bedside, bed in lowest position, and call light within reach. Pt A&Ox4, VSS, and in no apparent distress at this time. IV site intact/asymptomatic & H/L'd and sacral redness noted. Will continue to monitor.
[2019-03-27 20:00] VITALS: BP 125/60
[2019-03-28] VITALS (7 sets, daily range): BP systolic 112–130; BP diastolic 51–78
[2019-03-28] MEDS: GlipiZIDE 5mg tab ORAL SCH ×2 (06:12→16:53)
[2019-03-28] MEDS: metroNIDAZOLE 500mg tab ORAL SCH ×3 (06:12→20:30)
[2019-03-28] MEDS: NovoLOG Insulin Flexpen SUBQ SCH ×4 (06:16→20:30)
--- NOTE | 2019-03-28 07:30 | NUR ---
NURSE NOTES: Patient is in bed awake and able to verbalize needs. Stable. Denies pain or SOB. Patient is encouraged to use call light for assistance, verbalized understanding. Patient is in bed in locked and lowest position with call light within reach. Will continue to monitor.
--- NOTE | 2019-03-28 07:36 | NUR ---
HAND-OFF: Report given to SARAI Holm.
[2019-03-28 08:54] LABS: ANION GAP 11 mmol/L (5-15); BLOOD UREA NITROGEN 11 mg/dL (7-18); CALCIUM 9.2 MG/DL (8.5-10.1); CARBON DIOXIDE 22 MMOL/L (21-32); CHLORIDE 104 MMOL/L (98-107); CREATININE 0.6 MG/DL (0.55-1.30); PHOSPHORUS 3.3 MG/DL (2.5-4.9); POTASSIUM 4.1 MMOL/L (3.5-5.1); SODIUM 137 MMOL/L (136-145)
[2019-03-28] MEDS: Cefepime HCl 1 GM in D5W 55 ML IVPB SCH ×2 (08:57→20:28)
[2019-03-28] MEDS: Heparin 5000 units/ml inj SUBQ SCH ×2 (08:58→20:32)
--- NOTE | 2019-03-28 09:18 | Diagnostic Imaging Report ---
Clinical Indication: Abdominal pain Technique: Patient given oral contrast. IV administration nonionic contrast. Venous phase spiral acquisition obtained through the abdomen and pelvis. Multiplanar reconstructions were generated. Total dose length product 530.04 mGycm. CTDIvol(s) 11.32 mGy. Dose reduction achieved using automated exposure control Comparison: 03/10/2019 Findings: Uterine endometrium is thickened and fluid-filled. 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 The right horn is considerably thickened, left horn less so, right horn measuring up to 2 cm thick. In the right adnexal region, there is a complex fluid collection with mural enhancement. This is multilobulated, complex in shape. Dimensions are approximately 5.5 cm AP by 7 cm transverse by 3.9 cm craniocaudad. This is somewhat tubular in shape, but demonstrates rim-enhancing soft tissue as well as some infiltration of the surrounding fat. The collection appears to be contiguous with the tip of the appendix. This somewhat obscures the appendix, which may be slightly dilated. This process is also contiguous with the rectosigmoid junction, there is slight thickening of the rectosigmoid wall.. There is also a 1.6 cm rim-enhancing collection just to the right of the distal rectum. Findings are all new since the prior study. Previously demonstrated free pelvic fluid is no longer evident. Previously demonstrated free intraperitoneal gas is no longer evident. Patient has undergone interval repair of previously demonstrated perforated ulcer. There is a small amount of infiltration of the omental fat adjacent to the anterior gastric wall. No evidence of fluid collection or abscess at the operative site. No evidence of contrast leakage demonstrated. Ingested contrast has traversed most but not all of the small bowel. No small bowel distention or small bowel wall thickening. There are a few colonic diverticula. The distal esophagus is unremarkable. The liver is unremarkable. The gallbladder demonstrates some prominent rim enhancement but is nondistended. There is a tiny focus of fluid immediately adjacent to the gallbladder fundus. No biliary ductal dilatation. The pancreas, spleen, adrenals are unremarkable. The kidneys demonstrate subcentimeter low-attenuation lesions which are too small to characterize. No retroperitoneal or mesenteric mass or adenopathy. Again demonstrated is a left hip prosthesis. Considerable groundglass opacity is again demonstrated at both lung bases. The heart is enlarged. The bones demonstrate degenerative spondylosis changes and an old healed fracture deformity of the left pubic bone.. There are numerous buttock injection granulomata. Impression: Markedly thickened and fluid-filled endometrium. 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 This measures 5.5 x 7 x 3.9 cm. There is also a second tiny collection adjacent to the distal rectum. One possible etiology is, given the above finding, a tubo-ovarian abscess, related to retrograde propagation of endometritis. A second possibility is that this represents acute diverticulitis with peridiverticular abscess, given the close relationship with the distal sigmoid colon. A third possibility is this represents an abscess related to infected pelvic fluid from the prior gastric perforation, as the previous exam did demonstrate a small amount of free fluid in the pelvis. Finally, given the presence of the appendix (which is prominent in caliber) at the edge of the collection, this could represent perforated acute distal appendicitis. However, this is deemed less likely. Evidence of interim repair of previously demonstrated perforated gastric ulcer. No evidence of contrast leakage. No abnormal fluid collection at the operative site Colonic diverticulosis Slight rim enhancement of the gallbladder. Slight pericholecystic fluid. However, the gallbladder is nondistended, so doubt significance of this Bilateral basilar pulmonary parenchymal groundglass opacity, likely on the basis of mild pulmonary edema Cardiomegaly Incidental findings as noted, including buttock injection granulomata, old healed left pubic bone fracture deformity, left hip prosthesis, degenerative spondylosis, subcentimeter low-attenuation renal lesions which are too small to characterize but for which no further follow-up is necessary Findings discussed by phone with Dr. Sheth at the time of interpretation The CT scanner at [facility] is accredited by the [employer] and the scans are performed using protocols designed to limit radiation exposure to as low as reasonably achievable to attain images of sufficient resolution adequate for diagnostic evaluation.
--- NOTE | 2019-03-28 11:28 | Nephrology Progress Note ---
Assessment/Plan Problem List: (1) Perforated abdominal viscus (2) Hypokalemia (3) Hypomagnesemia (4) Diabetes mellitus (5) Anemia Assessment WBC rising Post lap on 03/10 Low K Low Phos Low Mag Anemia DM h/o HTN Plan add oral hypoglycemics for high BS high K likely hemolysis resolved DC IV mag supplement change all to orals Mag and K and Phos IV as needed Anemia claudio Keep BP and BS in check per orders DC planning Subjective ROS Limited/Unobtainable: No Objective Objective Last 24 Hour Vital Signs Date Time Temp Pulse Resp B/P (MAP) Pulse Ox O2 Delivery O2 Flow Rate FiO2 03/28/19 09:00 Room Air 03/28/19 08:00 97.1 88 17 112/51 (71) 95 03/28/19 04:00 99.1 91 17 130/78 (95) 97 03/28/19 00:00 98.7 89 16 120/55 (76) 94 03/27/19 21:00 Room Air 03/27/19 20:00 98.1 88 16 125/60 (81) 88 03/27/19 19:32 96 Room Air 21 03/27/19 16:00 97.6 88 16 116/60 (78) 95 03/27/19 12:00 98.4 93 18 118/57 (77) 97 Intake and Output 03/27/19 03/28/19 19:00 07:00 Intake Total 1005 ml 175 ml Balance 1005 ml 175 ml Intake Oral 850 ml 120 ml IV Total 155 ml 55 ml # Voids 3 1 Laboratory Tests 03/28/19 05:21: Sodium Level 137, Potassium Level 4.1, Chloride Level 104, Carbon Dioxide Level 22, Anion Gap 11, Blood Urea Nitrogen 11, Creatinine 0.6, Estimat Glomerular Filtration Rate , Glucose Level 130H, Calcium Level 9.2, Phosphorus Level 3.3, Magnesium Level 1.7L Height (Feet): 5 Height (Inches): 0.00 Weight (Pounds): 112 General Appearance: no apparent distress Objective no change El Clark MD Mar 28, 2019 11:28
--- NOTE | 2019-03-28 11:32 | General Progress Note ---
Progress Note Progress Note Patient seen and examined bedside today with family present. Patient with persistent leukocytosis but no longer having fevers. Patient still complaining of abdominal discomfort. Tolerating diet with minimal appetite. No nausea or vomiting. On examination abdomen soft nontender nondistended bowel sounds are present. CT findings were identified and discussed with the radiologist this morning. I explained the CT findings to the patient and family in detail. We discussed possible options including surgical intervention. In speaking with the radiologist IR drainage is not possible at this time given location and complexity of fluid collection. Remaining options are continuing with IV antibiotics given patient's fevers have resolved and she is overall improving slowly versus exploration with washout drain drain placement. Given patient's advanced age, multiple medical comorbidities, recent surgery there is significant concern for high morbidity and more even potentially mortality with a another surgical intervention. Patient and family understand and expressed strong desire not to proceed with any surgical intervention unless absolutely necessary. Will attempt with antibiotic therapy understanding that if patient deteriorates will require surgical intervention. Mike Sheth Mar 28, 2019 11:32
--- NOTE | 2019-03-28 12:12 | Infectious Diseases Prog Note ---
Assessment/Plan Assessment/Plan Probable Sepsis- 2ry to likely intraabdominal abscess -CT abd/p: Markedly thickened and fluid-filled endometrium. 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 Complex multilobulated fluid collection with areas of enhancing soft tissue in the right adnexal region. This measures 5.5 x 7 x 3.9 cm. There is also a second tiny collection adjacent to the distal rectum. One possible etiology is, given the above finding, a tubo-ovarian abscess, related to retrograde propagation of endometritis. A second possibility is that this represents acute diverticulitis with peridiverticular abscess, given the close relationship with the distal sigmoid colon. A third possibility is this represents an abscess related to infected pelvic fluid from the prior gastric perforation, as the previous exam did demonstrate a small amount of free fluid in the pelvis. Finally, given the presence of the appendix (which isprominent in caliber) at the edge of the collection, this could represent perforated acute distal appendicitis. However, this is deemed less likely. Evidence of interim repair of previously demonstrated perforated gastric ulcer. No evidence of contrast leakage. No abnormal fluid collection at the operative site. Colonic diverticulosis. Slight rim enhancement of the gallbladder. Slight pericholecystic fluid. However, the gallbladder is nondistended, so doubt significance of this. Bilateral basilar pulmonary parenchymal groundglass opacity, likely on the basis of mild pulmonary edema Fever, SP Leukocytosis, recurrent, persistent-2 ry to above -9/4 Bcx NTD -03/22 CXR: Cardiomegaly.Bilateral basilar atelectasis or scarring. Decreased left pleural fluid u/a neg -9/2 BCx Neg -03/20 CXR: Subsegmental atelectasis versus infiltrate in the left lung base. -03/19 u/a neg Cdiff neg -v/ duplex no DVT Perforated pre-pyloric gastric ulcer -03/15 s/p UGI series: Negative for postoperative leak -03/10 SP 03/10 SP Exploratory Laparotomy, Abdominal washout. Partial omentectomy. Shane patch for repair of perforated pre-pyloric ulcer. -03/10 CT abd/p: Free intraperitoneal gas. Etiology not completely certain, but gas within and extending from the anterior gastric antral wall is suspicious for a perforated gastric ulcer. Perforated descending colon diverticulitis also possible but deemed much less likely. Free intraperitoneal fluid, presumably related to the above. Fatty liver. Basilar pulmonary parenchymal groundglass opacities. This could indicate pulmonary edema, among other possibilities. Subcentimeter low-attenuation renal lesions, too small to characterize, most likely benign simple cyst. No further follow-up necessary. 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 Acute encephalopathy -CT head: Chronic and age-related changes. Negative for acute intracranial bleed or mass effect VDRF, post-op; extubated 03/12 DARRON, SP Dm2 HTN Plan: -Cont empiric Cefepime #7 and PO Flagyl #6 for intrabdominal abscess -Discussed with Dr Sheth. It is unclear origin of abscess if complication from prior gastric perforation vs gynecological origin vs sigmoid related. Patient no longer afebrile and it is felt she is high risk for surgical re-exploration. Will recommend a total 6 weeks of IV ertapenem. -03/22 SP Fluconazole #10 -03/15 SP Zosyn #6 -03/10 SP IV Vancomycin #1, Ancef x1 -f/u cx -Monitor CBC/CMP, temperatures -Sx f/u -wound care per surgical team -aspiration precautions -f/u BCx x2 -Pelvic US Subjective Allergies: Coded Allergies: No Known Allergies (Unverified , 03/10/19) Subjective afebrile wbc persistent at 15 Objective Vital Signs Last 24 Hour Vital Signs Date Time Temp Pulse Resp B/P (MAP) Pulse Ox O2 Delivery O2 Flow Rate FiO2 03/28/19 09:00 Room Air 03/28/19 08:00 97.1 88 17 112/51 (71) 95 03/28/19 04:00 99.1 91 17 130/78 (95) 97 03/28/19 00:00 98.7 89 16 120/55 (76) 94 03/27/19 21:00 Room Air 03/27/19 20:00 98.1 88 16 125/60 (81) 88 03/27/19 19:32 96 Room Air 21 03/27/19 16:00 97.6 88 16 116/60 (78) 95 Height (Feet): 5 Height (Inches): 0.00 Weight (Pounds): 112 Objective General appearance: alert, cooperative, no distress, appears stated age Head: Normocephalic, without obvious abnormality, atraumatic Eyes: conjunctivae/corneas clear. PERRL, EOM's intact. Fundi benign Throat: Lips, mucosa, and tongue normal. Teeth and gums normal Neck: supple, symmetrical, trachea midline, no adenopathy, thyroid: not enlarged, symmetric, no tenderness/mass/nodules, no carotid bruit and no JVD Lungs: clear to auscultation bilaterally Heart: regular rate and rhythm, S1, S2 normal, no murmur, click, rub or gallop Abdomen: soft, peritonitis with tender. Bowel sounds normal. No masses, no organomegaly Extremities: extremities normal, atraumatic, no cyanosis or edema Pulses: 2+ and symmetric Skin: Skin color, texture, turgor normal. No rashes or lesions Neurologic: Grossly normal Laboratory Tests Test 03/28/19 05:21 Sodium Level 137 MMOL/L (136-145) Potassium Level 4.1 MMOL/L (3.5-5.1) Chloride Level 104 MMOL/L (98-107) Carbon Dioxide Level 22 MMOL/L (21-32) Anion Gap 11 mmol/L (5-15) Blood Urea Nitrogen 11 mg/dL (7-18) Creatinine 0.6 MG/DL (0.55-1.30) Estimat Glomerular Filtration Rate mL/min (>60) Glucose Level 130 MG/DL (74-106) H Calcium Level 9.2 MG/DL (8.5-10.1) Phosphorus Level 3.3 MG/DL (2.5-4.9) Magnesium Level 1.7 MG/DL (1.8-2.4) L Current Medications Medications (Trade) Dose Ordered Sig/Shantelle Route PRN Reason Start Time Stop Time Status Last Admin Dose Admin Acetaminophen (Tylenol) 650 mg Q4H PRN ORAL Mild Pain/Temp > 100.5 03/19/19 16:00 04/18/19 15:59 03/26/19 20:43 Barium Sulfate (Readi-Cat 2) 450 ml PRN PRN ORAL Radiology Procedure 03/27/19 13:30 04/26/19 13:29 Cefepime HCl 1 gm/ Dextrose 55 ml @ 110 mls/hr EVERY 12 HOURS IVPB 03/22/19 13:00 03/29/19 12:59 03/28/19 08:57 Dextrose (Dextrose 50%) 25 ml Q30M PRN IV Hypoglycemia 03/23/19 08:45 04/22/19 08:44 Dextrose (Dextrose 50%) 50 ml Q30M PRN IV Hypoglycemia 03/23/19 08:45 04/22/19 08:44 Glipizide (Glucotrol) 5 mg BIAC ORAL 03/21/19 16:30 04/20/19 16:29 03/28/19 06:12 Heparin Sodium (Porcine) (Heparin 5000 units/ml) 5,000 units EVERY 12 HOURS SUBQ 03/13/19 21:00 04/09/19 20:59 03/28/19 08:58 Insulin Aspart (NovoLOG) BEFORE MEALS AND HS SUBQ 03/23/19 11:30 04/22/19 11:29 03/28/19 11:47 Metronidazole (Flagyl) 500 mg Q8HR ORAL 03/23/19 14:00 03/30/19 13:59 03/28/19 06:12 Nateglinide (Starlix) 120 mg TIAC ORAL 03/23/19 11:30 04/22/19 11:29 03/28/19 11:40 Ondansetron HCl (Zofran) 4 mg Q6H PRN IVP Nausea & Vomiting 03/13/19 19:15 04/09/19 13:14 Pantoprazole (Protonix) 40 mg EVERY 12 HOURS ORAL 03/16/19 21:00 04/15/19 20:59 03/28/19 08:58 Janette Stallworth M.D. Mar 28, 2019 12:12
--- NOTE | 2019-03-28 12:58 | NUR ---
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 97.1 HR 88 RR 17 B/P 112/51 RA 95% WBC 15.9 ESR [address]= MARKLY THICKENED AND FLUID FILLED ENDOMETRIUM IS: CEFEPIME IV HEPARIN SUBC FLAGYL PO MED/SURG STATUS
--- NOTE | 2019-03-28 18:45 | Internal Med Progress Note ---
Subjective Date of Service: Mar 28, 2019 Physician Name Zen Paige Attending Physician Marcos Silva MD Current Medications Medications (Trade) Dose Ordered Sig/Shantelle Route PRN Reason Start Time Stop Time Status Last Admin Dose Admin Acetaminophen (Tylenol) 650 mg Q4H PRN ORAL Mild Pain/Temp > 100.5 03/19/19 16:00 04/18/19 15:59 03/26/19 20:43 Barium Sulfate (Readi-Cat 2) 450 ml PRN PRN ORAL Radiology Procedure 03/27/19 13:30 04/26/19 13:29 Cefepime HCl 1 gm/ Dextrose 55 ml @ 110 mls/hr EVERY 12 HOURS IVPB 03/22/19 13:00 03/29/19 12:59 03/28/19 08:57 Dextrose (Dextrose 50%) 25 ml Q30M PRN IV Hypoglycemia 03/23/19 08:45 04/22/19 08:44 Dextrose (Dextrose 50%) 50 ml Q30M PRN IV Hypoglycemia 03/23/19 08:45 04/22/19 08:44 Glipizide (Glucotrol) 5 mg BIAC ORAL 03/21/19 16:30 04/20/19 16:29 03/28/19 16:53 Heparin Sodium (Porcine) (Heparin 5000 units/ml) 5,000 units EVERY 12 HOURS SUBQ 03/13/19 21:00 04/09/19 20:59 03/28/19 08:58 Insulin Aspart (NovoLOG) BEFORE MEALS AND HS SUBQ 03/23/19 11:30 04/22/19 11:29 03/28/19 16:55 Metronidazole (Flagyl) 500 mg Q8HR ORAL 03/23/19 14:00 03/30/19 13:59 03/28/19 14:22 Nateglinide (Starlix) 120 mg TIAC ORAL 03/23/19 11:30 04/22/19 11:29 03/28/19 16:53 Ondansetron HCl (Zofran) 4 mg Q6H PRN IVP Nausea & Vomiting 03/13/19 19:15 04/09/19 13:14 Pantoprazole (Protonix) 40 mg EVERY 12 HOURS ORAL 03/16/19 21:00 04/15/19 20:59 03/28/19 08:58 Allergies: Coded Allergies: No Known Allergies (Unverified , 03/10/19) ROS Limited/Unobtainable: No Constitutional: Reports: no symptoms HEENT: Reports: no symptoms Cardiovascular: Reports: no symptoms Respiratory: Reports: no symptoms Gastrointestinal/Abdominal: Reports: no symptoms Genitourinary: Reports: no symptoms Neurologic/Psychiatric: Reports: no symptoms Subjective 84 YO F admitted with abdominal pain. S/P exploratory laparotomy 03/10/19. Cover for Int Marcus-Dr Silva. Objective Last Vital Signs Date Time Temp Pulse Resp B/P (MAP) Pulse Ox O2 Delivery O2 Flow Rate FiO2 03/28/19 16:00 97.7 77 17 127/71 (89) 97 03/28/19 09:00 Room Air 03/27/19 19:32 21 Laboratory Tests Test 03/28/19 05:21 Sodium Level 137 MMOL/L (136-145) Potassium Level 4.1 MMOL/L (3.5-5.1) Chloride Level 104 MMOL/L (98-107) Carbon Dioxide Level 22 MMOL/L (21-32) Anion Gap 11 mmol/L (5-15) Blood Urea Nitrogen 11 mg/dL (7-18) Creatinine 0.6 MG/DL (0.55-1.30) Estimat Glomerular Filtration Rate mL/min (>60) Glucose Level 130 MG/DL (74-106) H Calcium Level 9.2 MG/DL (8.5-10.1) Phosphorus Level 3.3 MG/DL (2.5-4.9) Magnesium Level 1.7 MG/DL (1.8-2.4) L Intake and Output 03/27/19 03/28/19 18:59 06:59 Intake Total 1005 ml 175 ml Balance 1005 ml 175 ml Intake Oral 850 ml 120 ml IV Total 155 ml 55 ml # Voids 3 1 Objective PHYSICAL EXAMINATION: GENERAL: The patient is a well developed, well nourished female who is intubated and sedated. HEENT: Eyes, pupils equal and responsive to light and accommodation. Extraocular movements are intact. NECK: Supple without lymphadenopathy. CHEST: Nasc canula; Few diffuse wheezes bilaterally. Otherwise, without wheezes or rales. CARDIOVASCULAR: Regular rhythm rate. S1-S2 are normal without murmurs, rubs, or gallops. ABDOMEN: NGT; Soft, nontender with decreased bowel sounds. No evidence of hepatosplenomegaly. no rebound or guarding noted. EXTREMITIES: Negative for clubbing, cyanosis, edema. RECTAL/GENITAL: Not performed. NEUROLOGIC: Cranial nerves II through XII are grossly intact without focal deficits. Assessment/Plan Assessment/Plan ASSESSMENT: This is an 84-year-old female. 1. Perforated gastric ulcer 2. Abdominal pain. 3. Nausea with vomiting. 4. Diabetes type 2. 5. Hypertension. 6. Post Op fever-resolved 7. Leukocytosis 8. Intraabdominal abscess TREATMENT: 1. Perforated gastric ulcer. A General Surgery consultation has been obtained with Dr. Sheth. S/P exploratory laparotomy 03/10/19=perforated Pre pyloric ulcer. Tolerating regular diet; NGT discontinued per surgery 2. Diabetes type 2. NovoLog sliding scale has been instituted. 3. Hypertension. The patient is currently hypotensive. 4. Respiratory failure. S/P extubation 03/12/19. A Pulmonary consultation has been obtained with Dr. Bibiana Pennington. 5. Med/surg 6. Discharge held by ID because of elevated WBC-No accepting home health agency- See discharge planning note. Discharge prescriptions written 7. ABX=cefepime and flagyl per ID Zen Paige MD Mar 28, 2019 18:45
--- NOTE | 2019-03-28 19:30 | NUR ---
HAND-OFF: Report given to Krishna MOON. Patient is stable.
--- NOTE | 2019-03-28 21:30 | NUR ---
NURSE NOTE: Received patient, up in chair, watching tv bryan son at bedside. A/O X3, denies pain, no outward signs or symptoms of discomfort, pain or distress. VS WNL. All due meds given. Patient transferred back to bed. Bed placed in lowest position, call light within reach. Patient appears stable. Will continue to monitor.
[2019-03-29] VITALS: BP 127/66
[2019-03-29 04:00] VITALS: BP 127/66
[2019-03-29] MEDS: GlipiZIDE 5mg tab ORAL SCH ×2 (06:21→16:44)
[2019-03-29] MEDS: metroNIDAZOLE 500mg tab ORAL SCH ×3 (06:21→21:10)
[2019-03-29 06:31] LABS: BASOPHILS % (AUTO) 1.2 % (0.0-2.0); EOSINOPHILS % (AUTO) 0.6 % (0.0-3.0); HEMATOCRIT 30.7 % (37.0-47.0); HEMOGLOBIN 9.8 G/DL (12.0-16.0); MEAN CORPUSCULAR VOLUME 87 FL (80-99); MONOCYTES % (AUTO) 9.7 % (1.0-10.0); NEUTROPHILS % (AUTO) 75.6 % (45.0-75.0); PLATELET COUNT 395 K/UL (150-450); RED BLOOD COUNT 3.53 M/UL (4.20-5.40); RED CELL DISTRIBUTION WIDTH 16.1 % (11.6-14.8); WHITE BLOOD COUNT 15.4 K/UL (4.8-10.8)
[2019-03-29] MEDS: NovoLOG Insulin Flexpen SUBQ SCH ×4 (06:31→21:17)
[2019-03-29 07:00] LABS: ALANINE AMINOTRANSFERASE 18 U/L (12-78); ALBUMIN 1.9 G/DL (3.4-5.0); ALBUMIN/GLOBULIN RATIO 0.5 (1.0-2.7); ALKALINE PHOSPHATASE 318 U/L (46-116); ANION GAP 10 mmol/L (5-15); ASPARTATE AMINO TRANSFERASE 32 U/L (15-37); BILIRUBIN,TOTAL 0.5 MG/DL (0.2-1.0); BLOOD UREA NITROGEN 11 mg/dL (7-18); CALCIUM 9.2 MG/DL (8.5-10.1); CARBON DIOXIDE 22 MMOL/L (21-32); CHLORIDE 104 MMOL/L (98-107); CREATININE 0.6 MG/DL (0.55-1.30); POTASSIUM 4.1 MMOL/L (3.5-5.1); SODIUM 136 MMOL/L (136-145)
--- NOTE | 2019-03-29 07:44 | NUR ---
HAND-OFF: Report given to SARAI Huang.
--- NOTE | 2019-03-29 07:48 | NUR ---
NURSE NOTES: Pt awake and smiling. Anticipated needs require to be met due to alternating mental status , at times pt is confused. 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
[2019-03-29 08:00] VITALS: BP 131/63
[2019-03-29] MEDS: Heparin 5000 units/ml inj SUBQ SCH ×2 (08:58→21:11)
--- NOTE | 2019-03-29 09:53 | NUR ---
NURSE NOTES: Ultrasound called to inquire about pt baseline in regards to understanding procedure for ultrasound, transvaginal. Pt understands and states she has had the procedure before. Daughter is now at bedside procedure explained , exam remains pending at this time. Pt talkative today. Encouraged to reposition while sitting up in chair
--- NOTE | 2019-03-29 09:59 | NUR ---
NURSE NOTES: Antibiotics made available at this time
[2019-03-29] MEDS: Cefepime HCl 1 GM in D5W 55 ML IVPB SCH (10:07)
--- NOTE | 2019-03-29 10:37 | Pulmonology Progress Note ---
Assessment/Plan Problems: (1) Sepsis (2) S/P exploratory laparotomy (3) Perforated abdominal viscus (4) Septic shock (5) Diabetes mellitus (6) Peritonitis Assessment/Plan improving on regular diet needs 6 weeks of iv abx as per ID for intra abdominal abscess wbc stable Subjective ROS Limited/Unobtainable: No Constitutional: Reports: no symptoms HEENT: Repors: no symptoms Respiratory: Reports: no symptoms Allergies: Coded Allergies: No Known Allergies (Unverified , 03/10/19) Objective Last 24 Hour Vital Signs Date Time Temp Pulse Resp B/P (MAP) Pulse Ox O2 Delivery O2 Flow Rate FiO2 03/29/19 08:00 98.1 96 17 131/63 (85) 03/29/19 04:00 99.8 98 17 127/66 (86) 97 03/29/19 00:00 97.8 91 16 127/66 (86) 97 03/28/19 21:00 Room Air 03/28/19 20:00 98.6 94 14 130/65 (86) 97 03/28/19 16:00 97.7 77 17 127/71 (89) 97 03/28/19 12:00 97.9 95 19 122/71 (88) 97 Intake and Output 03/28/19 03/29/19 19:00 07:00 Intake Total 480 ml 535 ml Balance 480 ml 535 ml Intake Oral 480 ml 480 ml IV Total 55 ml # Voids 1 # Bowel Movements 1 General Appearance: WD/WN HEENT: atraumatic, anicteric Respiratory/Chest: chest wall non-tender, no respiratory distress Cardiovascular: no gallop/murmur Abdomen: soft, non tender Extremities: no cyanosis Skin: no rash Laboratory Tests 03/29/19 05:50: White Blood Count 15.4H, Red Blood Count 3.53L, Hemoglobin 9.8L, Hematocrit 30.7L, Mean Corpuscular Volume 87, Mean Corpuscular Hemoglobin 27.9, Mean Corpuscular Hemoglobin Concent 32.0, Red Cell Distribution Width 16.1H, Platelet Count 395, Mean Platelet Volume 6.7, Neutrophils (%) (Auto) 75.6H, Lymphocytes (%) (Auto) 13.0L, Monocytes (%) (Auto) 9.7, Eosinophils (%) (Auto) 0.6, Basophils (%) (Auto) 1.2, Erythrocyte Sedimentation Rate 114H, Sodium Level 136, Potassium Level 4.1, Chloride Level 104, Carbon Dioxide Level 22, Anion Gap 10, Blood Urea Nitrogen 11, Creatinine 0.6, Estimat Glomerular Filtration Rate , Glucose Level 155H, Calcium Level 9.2, Total Bilirubin 0.5, Aspartate Amino Transf (AST/SGOT) 32, Alanine Aminotransferase (ALT/SGPT) 18, Alkaline Phosphatase 318H, C-Reactive Protein, Quantitative 5.9H, Total Protein 6.0L, Albumin 1.9L, Globulin 4.1, Albumin/Globulin Ratio 0.5L Current Medications Medications (Trade) Dose Ordered Sig/Shantelle Route PRN Reason Start Time Stop Time Status Last Admin Dose Admin Acetaminophen (Tylenol) 650 mg Q4H PRN ORAL Mild Pain/Temp > 100.5 03/19/19 16:00 04/18/19 15:59 03/29/19 08:54 Barium Sulfate (Readi-Cat 2) 450 ml PRN PRN ORAL Radiology Procedure 03/27/19 13:30 04/26/19 13:29 Cefepime HCl 1 gm/ Dextrose 55 ml @ 110 mls/hr EVERY 12 HOURS IVPB 03/22/19 13:00 03/29/19 12:59 03/29/19 10:07 Dextrose (Dextrose 50%) 25 ml Q30M PRN IV Hypoglycemia 03/23/19 08:45 04/22/19 08:44 Dextrose (Dextrose 50%) 50 ml Q30M PRN IV Hypoglycemia 03/23/19 08:45 04/22/19 08:44 Glipizide (Glucotrol) 5 mg BIAC ORAL 03/21/19 16:30 04/20/19 16:29 03/29/19 06:21 Heparin Sodium (Porcine) (Heparin 5000 units/ml) 5,000 units EVERY 12 HOURS SUBQ 03/13/19 21:00 04/09/19 20:59 03/29/19 08:58 Insulin Aspart (NovoLOG) BEFORE MEALS AND HS SUBQ 03/23/19 11:30 04/22/19 11:29 03/29/19 06:31 Metronidazole (Flagyl) 500 mg Q8HR ORAL 03/23/19 14:00 03/30/19 13:59 03/29/19 06:21 Nateglinide (Starlix) 120 mg TIAC ORAL 03/23/19 11:30 04/22/19 11:29 03/29/19 06:21 Ondansetron HCl (Zofran) 4 mg Q6H PRN IVP Nausea & Vomiting 03/13/19 19:15 04/09/19 13:14 Pantoprazole (Protonix) 40 mg EVERY 12 HOURS ORAL 03/16/19 21:00 04/15/19 20:59 03/29/19 08:53 Bibiana Pennington MD Mar 29, 2019 10:37
--- NOTE | 2019-03-29 11:34 | Nephrology Progress Note ---
Assessment/Plan Problem List: (1) Perforated abdominal viscus (2) Hypokalemia (3) Hypomagnesemia (4) Diabetes mellitus (5) Anemia Assessment WBC rising Post lap on 03/10 Low K Low Phos Low Mag Anemia DM h/o HTN Plan add oral hypoglycemics for high BS high K likely hemolysis resolved DC IV mag supplement change all to orals Mag and K and Phos IV as needed Anemia claudio Keep BP and BS in check per orders DC planning Subjective ROS Limited/Unobtainable: No Objective Objective Last 24 Hour Vital Signs Date Time Temp Pulse Resp B/P (MAP) Pulse Ox O2 Delivery O2 Flow Rate FiO2 03/29/19 08:00 98.1 96 17 131/63 (85) 03/29/19 04:00 99.8 98 17 127/66 (86) 97 03/29/19 00:00 97.8 91 16 127/66 (86) 97 03/28/19 21:00 Room Air 03/28/19 20:00 98.6 94 14 130/65 (86) 97 03/28/19 16:00 97.7 77 17 127/71 (89) 97 03/28/19 12:00 97.9 95 19 122/71 (88) 97 Intake and Output 03/28/19 03/29/19 19:00 07:00 Intake Total 480 ml 535 ml Balance 480 ml 535 ml Intake Oral 480 ml 480 ml IV Total 55 ml # Voids 1 # Bowel Movements 1 Laboratory Tests 03/29/19 05:50: White Blood Count 15.4H, Red Blood Count 3.53L, Hemoglobin 9.8L, Hematocrit 30.7L, Mean Corpuscular Volume 87, Mean Corpuscular Hemoglobin 27.9, Mean Corpuscular Hemoglobin Concent 32.0, Red Cell Distribution Width 16.1H, Platelet Count 395, Mean Platelet Volume 6.7, Neutrophils (%) (Auto) 75.6H, Lymphocytes (%) (Auto) 13.0L, Monocytes (%) (Auto) 9.7, Eosinophils (%) (Auto) 0.6, Basophils (%) (Auto) 1.2, Erythrocyte Sedimentation Rate 114H, Sodium Level 136, Potassium Level 4.1, Chloride Level 104, Carbon Dioxide Level 22, Anion Gap 10, Blood Urea Nitrogen 11, Creatinine 0.6, Estimat Glomerular Filtration Rate , Glucose Level 155H, Calcium Level 9.2, Total Bilirubin 0.5, Aspartate Amino Transf (AST/SGOT) 32, Alanine Aminotransferase (ALT/SGPT) 18, Alkaline Phosphatase 318H, C-Reactive Protein, Quantitative 5.9H, Total Protein 6.0L, Albumin 1.9L, Globulin 4.1, Albumin/Globulin Ratio 0.5L Height (Feet): 5 Height (Inches): 0.00 Weight (Pounds): 112 General Appearance: no apparent distress Objective no change El Clark MD Mar 29, 2019 11:34
--- NOTE | 2019-03-29 11:58 | Infectious Diseases Prog Note ---
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 Complex multilobulated fluid collection with areas of enhancing soft tissue in the right adnexal region. This measures 5.5 x 7 x 3.9 cm. There is also a second tiny collection adjacent to the distal rectum. One possible etiology is, given the above finding, a tubo-ovarian abscess, related to retrograde propagation of endometritis. A second possibility is that this represents acute diverticulitis with peridiverticular abscess, given the close relationship with the distal sigmoid colon. A third possibility is this represents an abscess related to infected pelvic fluid from the prior gastric perforation, as the previous exam did demonstrate a small amount of free fluid in the pelvis. Finally, given the presence of the appendix (which isprominent in caliber) at the edge of the collection, this could represent perforated acute distal appendicitis. However, this is deemed less likely. Evidence of interim repair of previously demonstrated perforated gastric ulcer. No evidence of contrast leakage. No abnormal fluid collection at the operative site. Colonic diverticulosis. Slight rim enhancement of the gallbladder. Slight pericholecystic fluid. However, the gallbladder is nondistended, so doubt significance of this. Bilateral basilar pulmonary parenchymal groundglass opacity, likely on the basis of mild pulmonary edema Fever, SP Leukocytosis, recurrent, persistent-2 ry to above -9/4 Bcx Neg -9/3 CXR: Cardiomegaly.Bilateral basilar atelectasis or scarring. Decreased left pleural fluid u/a neg -9/2 BCx Neg -9/1 CXR: Subsegmental atelectasis versus infiltrate in the left lung base. -03/19 u/a neg Cdiff neg -v/ duplex no DVT Perforated pre-pyloric gastric ulcer -03/15 s/p UGI series: Negative for postoperative leak -03/10 SP 03/10 SP Exploratory Laparotomy, Abdominal washout. Partial omentectomy. Shane patch for repair of perforated pre-pyloric ulcer. -03/10 CT abd/p: Free intraperitoneal gas. Etiology not completely certain, but gas within and extending from the anterior gastric antral wall is suspicious for a perforated gastric ulcer. Perforated descending colon diverticulitis also possible but deemed much less likely. Free intraperitoneal fluid, presumably related to the above. Fatty liver. Basilar pulmonary parenchymal groundglass opacities. This could indicate pulmonary edema, among other possibilities. Subcentimeter low-attenuation renal lesions, too small to characterize, most likely benign simple cyst. No further follow-up necessary. 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 Acute encephalopathy -CT head: Chronic and age-related changes. Negative for acute intracranial bleed or mass effect VDRF, post-op; extubated 03/12 DARRON, SP Dm2 HTN Plan: -Cont empiric Cefepime #8 and PO Flagyl #7 for intraabdominal abscess -Discussed with Dr Sheth. It is unclear origin of abscess if complication from prior gastric perforation vs gynecological origin vs sigmoid related. Patient no longer afebrile and it is felt she is high risk for surgical re-exploration. Will recommend a total 6 weeks of IV ertapenem. -03/22 SP Fluconazole #10 -03/15 SP Zosyn #6 -03/10 SP IV Vancomycin #1, Ancef x1 -f/u cx -Monitor CBC/CMP, temperatures -Sx f/u -wound care per surgical team -aspiration precautions -f/u Pelvic US Subjective Allergies: Coded Allergies: No Known Allergies (Unverified , 03/10/19) Subjective afebrile leukocytosis stable Bcx neg Objective Vital Signs Last 24 Hour Vital Signs Date Time Temp Pulse Resp B/P (MAP) Pulse Ox O2 Delivery O2 Flow Rate FiO2 03/29/19 08:00 98.1 96 17 131/63 (85) 03/29/19 04:00 99.8 98 17 127/66 (86) 97 03/29/19 00:00 97.8 91 16 127/66 (86) 97 03/28/19 21:00 Room Air 03/28/19 20:00 98.6 94 14 130/65 (86) 97 03/28/19 16:00 97.7 77 17 127/71 (89) 97 03/28/19 12:00 97.9 95 19 122/71 (88) 97 Height (Feet): 5 Height (Inches): 0.00 Weight (Pounds): 112 Objective General appearance: alert, cooperative, no distress, appears stated age Head: Normocephalic, without obvious abnormality, atraumatic Eyes: conjunctivae/corneas clear. PERRL, EOM's intact. Fundi benign Throat: Lips, mucosa, and tongue normal. Teeth and gums normal Neck: supple, symmetrical, trachea midline, no adenopathy, thyroid: not enlarged, symmetric, no tenderness/mass/nodules, no carotid bruit and no JVD Lungs: clear to auscultation bilaterally Heart: regular rate and rhythm, S1, S2 normal, no murmur, click, rub or gallop Abdomen: soft, peritonitis with tender. Bowel sounds normal. No masses, no organomegaly Extremities: extremities normal, atraumatic, no cyanosis or edema Pulses: 2+ and symmetric Skin: Skin color, texture, turgor normal. No rashes or lesions Neurologic: Grossly normal Laboratory Tests Test 03/29/19 05:50 White Blood Count 15.4 K/UL (4.8-10.8) H Red Blood Count 3.53 M/UL (4.20-5.40) L Hemoglobin 9.8 G/DL (12.0-16.0) L Hematocrit 30.7 % (37.0-47.0) L Mean Corpuscular Volume 87 FL (80-99) Mean Corpuscular Hemoglobin 27.9 PG (27.0-31.0) Mean Corpuscular Hemoglobin Concent 32.0 G/DL (32.0-36.0) Red Cell Distribution Width 16.1 % (11.6-14.8) H Platelet Count 395 K/UL (150-450) Mean Platelet Volume 6.7 FL (6.5-10.1) Neutrophils (%) (Auto) 75.6 % (45.0-75.0) H Lymphocytes (%) (Auto) 13.0 % (20.0-45.0) L Monocytes (%) (Auto) 9.7 % (1.0-10.0) Eosinophils (%) (Auto) 0.6 % (0.0-3.0) Basophils (%) (Auto) 1.2 % (0.0-2.0) Erythrocyte Sedimentation Rate 114 MM/HR (0-30) H Sodium Level 136 MMOL/L (136-145) Potassium Level 4.1 MMOL/L (3.5-5.1) Chloride Level 104 MMOL/L (98-107) Carbon Dioxide Level 22 MMOL/L (21-32) Anion Gap 10 mmol/L (5-15) Blood Urea Nitrogen 11 mg/dL (7-18) Creatinine 0.6 MG/DL (0.55-1.30) Estimat Glomerular Filtration Rate mL/min (>60) Glucose Level 155 MG/DL (74-106) H Calcium Level 9.2 MG/DL (8.5-10.1) Total Bilirubin 0.5 MG/DL (0.2-1.0) Aspartate Amino Transf (AST/SGOT) 32 U/L (15-37) Alanine Aminotransferase (ALT/SGPT) 18 U/L (12-78) Alkaline Phosphatase 318 U/L (46-116) H C-Reactive Protein, Quantitative 5.9 mg/dL (0.00-0.90) H Total Protein 6.0 G/DL (6.4-8.2) L Albumin 1.9 G/DL (3.4-5.0) L Globulin 4.1 g/dL Albumin/Globulin Ratio 0.5 (1.0-2.7) L Current Medications Medications (Trade) Dose Ordered Sig/Shantelle Route PRN Reason Start Time Stop Time Status Last Admin Dose Admin Acetaminophen (Tylenol) 650 mg Q4H PRN ORAL Mild Pain/Temp > 100.5 03/19/19 16:00 04/18/19 15:59 03/29/19 08:54 Barium Sulfate (Readi-Cat 2) 450 ml PRN PRN ORAL Radiology Procedure 03/27/19 13:30 04/26/19 13:29 Cefepime HCl 1 gm/ Dextrose 55 ml @ 110 mls/hr EVERY 12 HOURS IVPB 03/22/19 13:00 03/29/19 12:59 03/29/19 10:07 Dextrose (Dextrose 50%) 25 ml Q30M PRN IV Hypoglycemia 03/23/19 08:45 04/22/19 08:44 Dextrose (Dextrose 50%) 50 ml Q30M PRN IV Hypoglycemia 03/23/19 08:45 04/22/19 08:44 Glipizide (Glucotrol) 5 mg BIAC ORAL 03/21/19 16:30 04/20/19 16:29 03/29/19 06:21 Heparin Sodium (Porcine) (Heparin 5000 units/ml) 5,000 units EVERY 12 HOURS SUBQ 03/13/19 21:00 04/09/19 20:59 03/29/19 08:58 Insulin Aspart (NovoLOG) BEFORE MEALS AND HS SUBQ 03/23/19 11:30 04/22/19 11:29 03/29/19 06:31 Metronidazole (Flagyl) 500 mg Q8HR ORAL 03/23/19 14:00 03/30/19 13:59 03/29/19 06:21 Nateglinide (Starlix) 120 mg TIAC ORAL 03/23/19 11:30 04/22/19 11:29 03/29/19 06:21 Ondansetron HCl (Zofran) 4 mg Q6H PRN IVP Nausea & Vomiting 03/13/19 19:15 04/09/19 13:14 Pantoprazole (Protonix) 40 mg EVERY 12 HOURS ORAL 03/16/19 21:00 04/15/19 20:59 03/29/19 08:53 Janette Stallworth M.D. Mar 29, 2019 11:58
[2019-03-29 12:00] VITALS: BP 122/69
--- NOTE | 2019-03-29 13:23 | NUR ---
GENERAL EDUCATION PROFESSORBAR BACK SI: PERFORATED VISCOUS T. 99.8 HR 98 RR 17 B/P 127/66 RA 98% WBC 15.0 ESR 114 ALK PHOS 318 IS: FLAGYL PO CEFEPIME IV HEPARIN SUBC MED/SURG STATUS
--- NOTE | 2019-03-29 14:42 | Diagnostic Imaging Report ---
Indication: Abdominal pain. Abnormal findings in the pelvis on recent CT scan Technique: Transabdominal and transvaginal imaging of the pelvis. Doppler interrogation of the ovaries Comparison: Reference made to CT scan 03/27/2019 Findings: Uterus measures 5.4 cm length by 3.1 cm AP. The uterus is demonstrated in the partial septate, although this is better visualized on CT scan. Both endometrial horns are distended by fluid, endometrium measuring up to 3 cm thick in the larger right horn. The left ovary cannot be visualized. What may be the right ovary is seen transabdominally, measures 2.7 cm length and demonstrates equivocally normal blood flow. In the right adnexal region, there is an irregular fluid collection, the main locule of which measures 1.6 x 1.6 cm.. This appears to be immediately adjacent to the wall of an adjacent bowel loop. Impression: Partial septate uterus with distended fluid-filled endometrium, also demonstrated on recent CT scan Right adnexal region irregular fluid collection, corresponding to findings reported on recent CT scan. This is contiguous with an immediately adjacent segment of bowel. This likewise corresponds to findings on recent CT. Note that the fluid collection and extent are better delineated on the prior study Nonvisualized left ovary
[2019-03-29 16:00] VITALS: BP 124/68
--- NOTE | 2019-03-29 16:00 | NUR ---
NURSE NOTES: Pt did not experience any side effects related to antibiotics given earlier in shift
--- NOTE | 2019-03-29 16:00 | NUR ---
NURSE NOTES: Ultrasound rendered. Family remains at beside. Blood sugar slightly elevated at luch covered with [address] Silva phoned for diet due to high blood sugar Pt is on regular diet. Will await return call
--- NOTE | 2019-03-29 17:19 | Internal Med Progress Note ---
Subjective Date of Service: Mar 29, 2019 Physician Name Zen Paige Attending Physician Marcos Silva MD Current Medications Medications (Trade) Dose Ordered Sig/Shantelle Route PRN Reason Start Time Stop Time Status Last Admin Dose Admin Acetaminophen (Tylenol) 650 mg Q4H PRN ORAL Mild Pain/Temp > 100.5 03/19/19 16:00 04/18/19 15:59 03/29/19 08:54 Barium Sulfate (Readi-Cat 2) 450 ml PRN PRN ORAL Radiology Procedure 03/27/19 13:30 04/26/19 13:29 Cefepime HCl 1 gm/ Dextrose 55 ml @ 110 mls/hr DAILY IVPB 03/30/19 09:00 04/06/19 08:59 Dextrose (Dextrose 50%) 25 ml Q30M PRN IV Hypoglycemia 03/23/19 08:45 04/22/19 08:44 Dextrose (Dextrose 50%) 50 ml Q30M PRN IV Hypoglycemia 03/23/19 08:45 04/22/19 08:44 Glipizide (Glucotrol) 5 mg BIAC ORAL 03/21/19 16:30 04/20/19 16:29 03/29/19 16:44 Heparin Sodium (Porcine) (Heparin 5000 units/ml) 5,000 units EVERY 12 HOURS SUBQ 03/13/19 21:00 04/09/19 20:59 03/29/19 08:58 Insulin Aspart (NovoLOG) BEFORE MEALS AND HS SUBQ 03/23/19 11:30 04/22/19 11:29 03/29/19 16:54 Metronidazole (Flagyl) 500 mg Q8HR ORAL 03/23/19 14:00 04/03/19 13:59 03/29/19 16:44 Nateglinide (Starlix) 120 mg TIAC ORAL 03/23/19 11:30 04/22/19 11:29 03/29/19 16:44 Ondansetron HCl (Zofran) 4 mg Q6H PRN IVP Nausea & Vomiting 03/13/19 19:15 04/09/19 13:14 Pantoprazole (Protonix) 40 mg EVERY 12 HOURS ORAL 03/16/19 21:00 04/15/19 20:59 03/29/19 08:53 Allergies: Coded Allergies: No Known Allergies (Unverified , 03/10/19) ROS Limited/Unobtainable: No Constitutional: Reports: no symptoms HEENT: Reports: no symptoms Cardiovascular: Reports: no symptoms Respiratory: Reports: no symptoms Gastrointestinal/Abdominal: Reports: abdominal pain Genitourinary: Reports: no symptoms Neurologic/Psychiatric: Reports: no symptoms Subjective 84 YO F admitted with abdominal pain. S/P exploratory laparotomy 03/10/19. Cover for Int Marcus-Dr Silva. Objective Last Vital Signs Date Time Temp Pulse Resp B/P (MAP) Pulse Ox O2 Delivery O2 Flow Rate FiO2 03/29/19 09:00 Room Air 03/29/19 08:00 98.1 96 17 131/63 (85) 03/29/19 04:00 97 03/27/19 19:32 21 Laboratory Tests Test 03/29/19 05:50 White Blood Count 15.4 K/UL (4.8-10.8) H Red Blood Count 3.53 M/UL (4.20-5.40) L Hemoglobin 9.8 G/DL (12.0-16.0) L Hematocrit 30.7 % (37.0-47.0) L Mean Corpuscular Volume 87 FL (80-99) Mean Corpuscular Hemoglobin 27.9 PG (27.0-31.0) Mean Corpuscular Hemoglobin Concent 32.0 G/DL (32.0-36.0) Red Cell Distribution Width 16.1 % (11.6-14.8) H Platelet Count 395 K/UL (150-450) Mean Platelet Volume 6.7 FL (6.5-10.1) Neutrophils (%) (Auto) 75.6 % (45.0-75.0) H Lymphocytes (%) (Auto) 13.0 % (20.0-45.0) L Monocytes (%) (Auto) 9.7 % (1.0-10.0) Eosinophils (%) (Auto) 0.6 % (0.0-3.0) Basophils (%) (Auto) 1.2 % (0.0-2.0) Erythrocyte Sedimentation Rate 114 MM/HR (0-30) H Sodium Level 136 MMOL/L (136-145) Potassium Level 4.1 MMOL/L (3.5-5.1) Chloride Level 104 MMOL/L (98-107) Carbon Dioxide Level 22 MMOL/L (21-32) Anion Gap 10 mmol/L (5-15) Blood Urea Nitrogen 11 mg/dL (7-18) Creatinine 0.6 MG/DL (0.55-1.30) Estimat Glomerular Filtration Rate mL/min (>60) Glucose Level 155 MG/DL (74-106) H Calcium Level 9.2 MG/DL (8.5-10.1) Total Bilirubin 0.5 MG/DL (0.2-1.0) Aspartate Amino Transf (AST/SGOT) 32 U/L (15-37) Alanine Aminotransferase (ALT/SGPT) 18 U/L (12-78) Alkaline Phosphatase 318 U/L (46-116) H C-Reactive Protein, Quantitative 5.9 mg/dL (0.00-0.90) H Total Protein 6.0 G/DL (6.4-8.2) L Albumin 1.9 G/DL (3.4-5.0) L Globulin 4.1 g/dL Albumin/Globulin Ratio 0.5 (1.0-2.7) L Intake and Output 03/28/19 03/29/19 19:00 07:00 Intake Total 480 ml 535 ml Balance 480 ml 535 ml Intake Oral 480 ml 480 ml IV Total 55 ml # Voids 1 # Bowel Movements 1 Objective PHYSICAL EXAMINATION: GENERAL: The patient is a well developed, well nourished female who is intubated and sedated. HEENT: Eyes, pupils equal and responsive to light and accommodation. Extraocular movements are intact. NECK: Supple without lymphadenopathy. CHEST: Nasc canula; Few diffuse wheezes bilaterally. Otherwise, without wheezes or rales. CARDIOVASCULAR: Regular rhythm rate. S1-S2 are normal without murmurs, rubs, or gallops. ABDOMEN: NGT; Soft, nontender with decreased bowel sounds. No evidence of hepatosplenomegaly. no rebound or guarding noted. EXTREMITIES: Negative for clubbing, cyanosis, edema. RECTAL/GENITAL: Not performed. NEUROLOGIC: Cranial nerves II through XII are grossly intact without focal deficits. Assessment/Plan Assessment/Plan ASSESSMENT: This is an 84-year-old female. 1. Perforated gastric ulcer 2. Abdominal pain. 3. Nausea with vomiting. 4. Diabetes type 2. 5. Hypertension. 6. Post Op fever-resolved 7. Leukocytosis 8. Intraabdominal abscess TREATMENT: 1. Perforated gastric ulcer. A General Surgery consultation has been obtained with Dr. Sheth. S/P exploratory laparotomy 03/10/19=perforated Pre pyloric ulcer. Tolerating regular diet; NGT discontinued per surgery 2. Diabetes type 2. NovoLog sliding scale has been instituted. 3. Hypertension. The patient is currently hypotensive. 4. Respiratory failure. S/P extubation 03/12/19. A Pulmonary consultation has been obtained with Dr. Bibiana Pennington. 5. Med/surg 6. Discharge held by ID because of elevated WBC-No accepting home health agency- See discharge planning note. Discharge prescriptions written 7. ABX=cefepime and flagyl per ID Zen Paige MD Mar 29, 2019 17:19
--- NOTE | 2019-03-29 18:44 | NUR ---
NURSE NOTES: error in entry for intake and output 1800
--- NOTE | 2019-03-29 18:47 | NUR ---
NURSE NOTES: Dr Silva gave orders to change diet to CCHO due to dm
--- NOTE | 2019-03-29 19:26 | NUR ---
HAND-OFF: Report given to Krishna MOON made aware of diet change , discharge planning per Dr Stallworth. .
[2019-03-29 20:00] VITALS: BP 113/52
[2019-03-30] VITALS: BP 136/73
--- NOTE | 2019-03-30 03:39 | NUR ---
NURSE NOTE: Patient received laying in bed, appears comfortable, and denies discomfort or pain at this time. Son at bedside. [facility] reported to have been tolerated well by day shift, RN. VS taken, WNL. BS taken at 2100 and all due meds given at this time. Pt is displaying no outward signs or symptoms of distress. RN will continue to monitor patient's progress. Bed at lowest level, call light within reach. Left in stable condition.
[2019-03-30 04:00] VITALS: BP 136/73
[2019-03-30 05:17] LABS: BASOPHILS % (AUTO) 1.2 % (0.0-2.0); EOSINOPHILS % (AUTO) 0.5 % (0.0-3.0); HEMATOCRIT 31.6 % (37.0-47.0); HEMOGLOBIN 10.1 G/DL (12.0-16.0); LYMPHOCYTES % (AUTO) 14.9 % (20.0-45.0); MEAN CORPUSCULAR VOLUME 87 FL (80-99); MONOCYTES % (AUTO) 9.1 % (1.0-10.0); NEUTROPHILS % (AUTO) 74.2 % (45.0-75.0); PLATELET COUNT 392 K/UL (150-450); RED BLOOD COUNT 3.63 M/UL (4.20-5.40); RED CELL DISTRIBUTION WIDTH 16.5 % (11.6-14.8); WHITE BLOOD COUNT 15.5 K/UL (4.8-10.8)
[2019-03-30 05:30] LABS: ANION GAP 10 mmol/L (5-15); BLOOD UREA NITROGEN 11 mg/dL (7-18); CALCIUM 9.1 MG/DL (8.5-10.1); CARBON DIOXIDE 21 MMOL/L (21-32); CHLORIDE 108 MMOL/L (98-107); CREATININE 0.6 MG/DL (0.55-1.30); POTASSIUM 4.1 MMOL/L (3.5-5.1); SODIUM 139 MMOL/L (136-145)
[2019-03-30] MEDS: metroNIDAZOLE 500mg tab ORAL SCH ×3 (06:02→21:29)
[2019-03-30] MEDS: GlipiZIDE 5mg tab ORAL SCH ×2 (06:02→17:21)
[2019-03-30] MEDS: NovoLOG Insulin Flexpen SUBQ SCH ×4 (06:56→21:30)
--- NOTE | 2019-03-30 07:28 | NUR ---
HAND-OFF: Report given to SARAI Huang.
--- NOTE | 2019-03-30 07:30 | NUR ---
NURSE NOTES: Pt up sitting up in bed. Will supervise to ensure repositioning. Current plan will be followed
[2019-03-30 08:00] VITALS: BP 140/75
[2019-03-30] MEDS: Heparin 5000 units/ml inj SUBQ SCH ×2 (09:46→21:01)
--- NOTE | 2019-03-30 10:02 | Nephrology Progress Note ---
Assessment/Plan Problem List: (1) Perforated abdominal viscus (2) Hypokalemia (3) Hypomagnesemia (4) Diabetes mellitus (5) Anemia Assessment WBC rising Post lap on 03/10 Low K Low Phos Low Mag Anemia DM h/o HTN Plan add oral hypoglycemics for high BS high K likely hemolysis resolved DC IV mag supplement change all to orals Mag and K and Phos IV as needed Anemia claudio Keep BP and BS in check per orders DC planning Subjective ROS Limited/Unobtainable: No Constitutional: Reports: malaise Objective Objective Last 24 Hour Vital Signs Date Time Temp Pulse Resp B/P (MAP) Pulse Ox O2 Delivery O2 Flow Rate FiO2 03/30/19 04:00 99.1 97 16 136/73 (94) 97 03/30/19 00:00 99.1 97 18 136/73 (94) 97 03/29/19 21:00 Room Air 03/29/19 20:00 98.0 86 16 113/52 (72) 98 03/29/19 16:00 98.3 92 18 124/68 (86) 03/29/19 12:00 98.3 90 16 122/69 (86) Intake and Output 03/29/19 03/30/19 19:00 07:00 Intake Total 1554 ml 240 ml Output Total 150 ml Balance 1404 ml 240 ml Intake Oral 240 ml Other 1554 ml Other 150 ml # Voids 6 1 Laboratory Tests 03/30/19 04:40: White Blood Count 15.5H, Red Blood Count 3.63L, Hemoglobin 10.1L, Hematocrit 31.6L, Mean Corpuscular Volume 87, Mean Corpuscular Hemoglobin 27.7, Mean Corpuscular Hemoglobin Concent 31.8L, Red Cell Distribution Width 16.5H, Platelet Count 392, Mean Platelet Volume 6.6, Neutrophils (%) (Auto) 74.2, Lymphocytes (%) (Auto) 14.9L, Monocytes (%) (Auto) 9.1, Eosinophils (%) (Auto) 0.5, Basophils (%) (Auto) 1.2, Sodium Level 139, Potassium Level 4.1, Chloride Level 108H, Carbon Dioxide Level 21, Anion Gap 10, Blood Urea Nitrogen 11, Creatinine 0.6, Estimat Glomerular Filtration Rate , Glucose Level 115H, Calcium Level 9.1 Height (Feet): 5 Height (Inches): 0.00 Weight (Pounds): 112 General Appearance: no apparent distress Objective no change El Clark MD Mar 30, 2019 10:02
[2019-03-30] MEDS: Cefepime HCl 1 GM in D5W 55 ML IVPB SCH (10:13)
--- NOTE | 2019-03-30 10:14 | NUR ---
NURSE NOTES: Antibiotic made available now
--- NOTE | 2019-03-30 10:47 | Surgery Progress Note ---
Surgery Progress Note Subjective Procedure Performed ex lap with imelda patch, washout, omentectomy Additional Comments stable labs noted US noted exam stable Objective Last 24 Hour Vital Signs Date Time Temp Pulse Resp B/P (MAP) Pulse Ox O2 Delivery O2 Flow Rate FiO2 03/30/19 09:00 Room Air 03/30/19 08:00 98.6 92 18 140/75 (96) 97 03/30/19 04:00 99.1 97 16 136/73 (94) 97 03/30/19 00:00 99.1 97 18 136/73 (94) 97 03/29/19 21:00 Room Air 03/29/19 20:00 98.0 86 16 113/52 (72) 98 03/29/19 16:00 98.3 92 18 124/68 (86) 03/29/19 12:00 98.3 90 16 122/69 (86) I&O Intake and Output 03/29/19 03/30/19 19:00 07:00 Intake Total 1554 ml 240 ml Output Total 150 ml Balance 1404 ml 240 ml Intake Oral 240 ml Other 1554 ml Other 150 ml # Voids 6 1 Wound: clean, dry Cardiovascular: RSR Respiratory: clear Abdomen: soft, flat, non-tender, present bowel sounds, non-distended Extremities: no tenderness, no cyanosis, other Laboratory Tests Test 03/30/19 04:40 White Blood Count 15.5 K/UL (4.8-10.8) H Red Blood Count 3.63 M/UL (4.20-5.40) L Hemoglobin 10.1 G/DL (12.0-16.0) L Hematocrit 31.6 % (37.0-47.0) L Mean Corpuscular Volume 87 FL (80-99) Mean Corpuscular Hemoglobin 27.7 PG (27.0-31.0) Mean Corpuscular Hemoglobin Concent 31.8 G/DL (32.0-36.0) L Red Cell Distribution Width 16.5 % (11.6-14.8) H Platelet Count 392 K/UL (150-450) Mean Platelet Volume 6.6 FL (6.5-10.1) Neutrophils (%) (Auto) 74.2 % (45.0-75.0) Lymphocytes (%) (Auto) 14.9 % (20.0-45.0) L Monocytes (%) (Auto) 9.1 % (1.0-10.0) Eosinophils (%) (Auto) 0.5 % (0.0-3.0) Basophils (%) (Auto) 1.2 % (0.0-2.0) Sodium Level 139 MMOL/L (136-145) Potassium Level 4.1 MMOL/L (3.5-5.1) Chloride Level 108 MMOL/L (98-107) H Carbon Dioxide Level 21 MMOL/L (21-32) Anion Gap 10 mmol/L (5-15) Blood Urea Nitrogen 11 mg/dL (7-18) Creatinine 0.6 MG/DL (0.55-1.30) Estimat Glomerular Filtration Rate mL/min (>60) Glucose Level 115 MG/DL (74-106) H Calcium Level 9.1 MG/DL (8.5-10.1) Assessment Post-op Diagnosis perforated prepyloric gastric ulcer Plan Problems: (1) Peritonitis Assessment & Plan: 84F with perforated abdominal viscus likely gastric perforation based on CT findings s/p imelda patch recovering labs improved exam improved advance diet anna removed CT and US noted abd fluid collection possible abscess unable to drain via IR can consider surgical drainage but would be high risk and with morbidity and mortality risk given age and medical condition family aware plan for medical therapy with IV abx given stable will monitor thank you (2) Perforated abdominal viscus Mike Sheth Mar 30, 2019 10:47
--- NOTE | 2019-03-30 11:31 | Internal Med Progress Note ---
Subjective Date of Service: Mar 30, 2019 Physician Name GreciaZen Attending Physician Marcos Silva MD Current Medications Medications (Trade) Dose Ordered Sig/Shantelle Route PRN Reason Start Time Stop Time Status Last Admin Dose Admin Acetaminophen (Tylenol) 650 mg Q4H PRN ORAL Mild Pain/Temp > 100.5 03/19/19 16:00 04/18/19 15:59 03/29/19 08:54 Barium Sulfate (Readi-Cat 2) 450 ml PRN PRN ORAL Radiology Procedure 03/27/19 13:30 04/26/19 13:29 Cefepime HCl 1 gm/ Dextrose 55 ml @ 110 mls/hr DAILY IVPB 03/30/19 09:00 04/06/19 08:59 03/30/19 10:13 Dextrose (Dextrose 50%) 25 ml Q30M PRN IV Hypoglycemia 03/23/19 08:45 04/22/19 08:44 Dextrose (Dextrose 50%) 50 ml Q30M PRN IV Hypoglycemia 03/23/19 08:45 04/22/19 08:44 Glipizide (Glucotrol) 5 mg BIAC ORAL 03/21/19 16:30 04/20/19 16:29 03/30/19 06:02 Heparin Sodium (Porcine) (Heparin 5000 units/ml) 5,000 units EVERY 12 HOURS SUBQ 03/13/19 21:00 04/09/19 20:59 03/30/19 09:46 Insulin Aspart (NovoLOG) BEFORE MEALS AND HS SUBQ 03/23/19 11:30 04/22/19 11:29 03/30/19 06:56 Metronidazole (Flagyl) 500 mg Q8HR ORAL 03/23/19 14:00 04/03/19 13:59 03/30/19 06:02 Nateglinide (Starlix) 120 mg TIAC ORAL 03/23/19 11:30 04/22/19 11:29 03/30/19 11:18 Ondansetron HCl (Zofran) 4 mg Q6H PRN IVP Nausea & Vomiting 03/13/19 19:15 04/09/19 13:14 Pantoprazole (Protonix) 40 mg EVERY 12 HOURS ORAL 03/16/19 21:00 04/15/19 20:59 03/30/19 09:44 Allergies: Coded Allergies: No Known Allergies (Unverified , 03/10/19) ROS Limited/Unobtainable: No Constitutional: Reports: no symptoms HEENT: Reports: no symptoms Cardiovascular: Reports: no symptoms Respiratory: Reports: no symptoms Gastrointestinal/Abdominal: Reports: no symptoms Genitourinary: Reports: no symptoms Neurologic/Psychiatric: Reports: no symptoms Subjective 84 YO F admitted with abdominal pain. S/P exploratory laparotomy 03/10/19. Cover for Int Med-Dr Silva. Objective Last Vital Signs Date Time Temp Pulse Resp B/P (MAP) Pulse Ox O2 Delivery O2 Flow Rate FiO2 03/30/19 09:00 Room Air 03/30/19 08:00 98.6 92 18 140/75 (96) 97 03/27/19 19:32 21 Laboratory Tests Test 03/30/19 04:40 White Blood Count 15.5 K/UL (4.8-10.8) H Red Blood Count 3.63 M/UL (4.20-5.40) L Hemoglobin 10.1 G/DL (12.0-16.0) L Hematocrit 31.6 % (37.0-47.0) L Mean Corpuscular Volume 87 FL (80-99) Mean Corpuscular Hemoglobin 27.7 PG (27.0-31.0) Mean Corpuscular Hemoglobin Concent 31.8 G/DL (32.0-36.0) L Red Cell Distribution Width 16.5 % (11.6-14.8) H Platelet Count 392 K/UL (150-450) Mean Platelet Volume 6.6 FL (6.5-10.1) Neutrophils (%) (Auto) 74.2 % (45.0-75.0) Lymphocytes (%) (Auto) 14.9 % (20.0-45.0) L Monocytes (%) (Auto) 9.1 % (1.0-10.0) Eosinophils (%) (Auto) 0.5 % (0.0-3.0) Basophils (%) (Auto) 1.2 % (0.0-2.0) Sodium Level 139 MMOL/L (136-145) Potassium Level 4.1 MMOL/L (3.5-5.1) Chloride Level 108 MMOL/L (98-107) H Carbon Dioxide Level 21 MMOL/L (21-32) Anion Gap 10 mmol/L (5-15) Blood Urea Nitrogen 11 mg/dL (7-18) Creatinine 0.6 MG/DL (0.55-1.30) Estimat Glomerular Filtration Rate mL/min (>60) Glucose Level 115 MG/DL (74-106) H Calcium Level 9.1 MG/DL (8.5-10.1) Intake and Output 03/29/19 03/30/19 19:00 07:00 Intake Total 1554 ml 240 ml Output Total 150 ml Balance 1404 ml 240 ml Intake Oral 240 ml Other 1554 ml Other 150 ml # Voids 6 1 Objective PHYSICAL EXAMINATION: GENERAL: The patient is a well developed, well nourished female who is intubated and sedated. HEENT: Eyes, pupils equal and responsive to light and accommodation. Extraocular movements are intact. NECK: Supple without lymphadenopathy. CHEST: Nasc canula; Few diffuse wheezes bilaterally. Otherwise, without wheezes or rales. CARDIOVASCULAR: Regular rhythm rate. S1-S2 are normal without murmurs, rubs, or gallops. ABDOMEN: NGT; Soft, nontender with decreased bowel sounds. No evidence of hepatosplenomegaly. no rebound or guarding noted. EXTREMITIES: Negative for clubbing, cyanosis, edema. RECTAL/GENITAL: Not performed. NEUROLOGIC: Cranial nerves II through XII are grossly intact without focal deficits. Assessment/Plan Assessment/Plan ASSESSMENT: This is an 84-year-old female. 1. Perforated gastric ulcer 2. Abdominal pain. 3. Nausea with vomiting. 4. Diabetes type 2. 5. Hypertension. 6. Post Op fever-resolved 7. Leukocytosis 8. Intraabdominal abscess TREATMENT: 1. Perforated gastric ulcer. A General Surgery consultation has been obtained with Dr. Sheth. S/P exploratory laparotomy 03/10/19=perforated Pre pyloric ulcer. Tolerating regular diet; NGT discontinued per surgery 2. Diabetes type 2. NovoLog sliding scale has been instituted. 3. Hypertension. The patient is currently hypotensive. 4. Respiratory failure. S/P extubation 03/12/19. A Pulmonary consultation has been obtained with Dr. Bibiana Pennington. 5. Med/surg 6. ABX=cefepime and flagyl per ID 7. Surgical intervention on hold for intraabdominal abscess-see surgery note. Zen Paige MD Mar 30, 2019 11:31
--- NOTE | 2019-03-30 11:58 | Infectious Diseases Prog Note ---
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 Right adnexal region irregular fluid collection, corresponding to findings reported on recent CT scan. This is contiguous with an immediately adjacent segment of bowel.This likewise corresponds to findings on recent CT. Note that the fluid collection and extent are better delineated on the prior study. Nonvisualized left ovary -CT abd/p: Markedly thickened and fluid-filled endometrium. 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 Complex multilobulated fluid collection with areas of enhancing soft tissue in the right adnexal region. This measures 5.5 x 7 x 3.9 cm. There is also a second tiny collection adjacent to the distal rectum. One possible etiology is, given the above finding, a tubo-ovarian abscess, related to retrograde propagation of endometritis. A second possibility is that this represents acute diverticulitis with peridiverticular abscess, given the close relationship with the distal sigmoid colon. A third possibility is this represents an abscess related to infected pelvic fluid from the prior gastric perforation, as the previous exam did demonstrate a small amount of free fluid in the pelvis. Finally, given the presence of the appendix (which isprominent in caliber) at the edge of the collection, this could represent perforated acute distal appendicitis. However, this is deemed less likely. Evidence of interim repair of previously demonstrated perforated gastric ulcer. No evidence of contrast leakage. No abnormal fluid collection at the operative site. Colonic diverticulosis. Slight rim enhancement of the gallbladder. Slight pericholecystic fluid. However, the gallbladder is nondistended, so doubt significance of this. Bilateral basilar pulmonary parenchymal groundglass opacity, likely on the basis of mild pulmonary edema Fever, SP Leukocytosis, recurrent, persistent-2 ry to above -9/4 Bcx Neg -03/22 CXR: Cardiomegaly.Bilateral basilar atelectasis or scarring. Decreased left pleural fluid u/a neg -9/2 BCx Neg -03/20 CXR: Subsegmental atelectasis versus infiltrate in the left lung base. -03/19 u/a neg Cdiff neg -v/ duplex no DVT Perforated pre-pyloric gastric ulcer -03/15 s/p UGI series: Negative for postoperative leak -03/10 SP 03/10 SP Exploratory Laparotomy, Abdominal washout. Partial omentectomy. Shane patch for repair of perforated pre-pyloric ulcer. -03/10 CT abd/p: Free intraperitoneal gas. Etiology not completely certain, but gas within and extending from the anterior gastric antral wall is suspicious for a perforated gastric ulcer. Perforated descending colon diverticulitis also possible but deemed much less likely. Free intraperitoneal fluid, presumably related to the above. Fatty liver. Basilar pulmonary parenchymal groundglass opacities. This could indicate pulmonary edema, among other possibilities. Subcentimeter low-attenuation renal lesions, too small to characterize, most likely benign simple cyst. No further follow-up necessary. 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 Acute encephalopathy -CT head: Chronic and age-related changes. Negative for acute intracranial bleed or mass effect VDRF, post-op; extubated 03/12 DARRON, SP Dm2 HTN Plan: -Cont empiric Cefepime #9 and PO Flagyl #8 for intraabdominal abscess -Discussed with Dr Sheth. It is unclear origin of abscess if complication from prior gastric perforation vs gynecological origin vs sigmoid related. Patient no longer afebrile and it is felt she is high risk for surgical re-exploration. Will recommend a total 6 weeks of IV ertapenem; end date 05/01/19; weekly CBC, CMP -03/22 SP Fluconazole #10 -03/15 SP Zosyn #6 -03/10 SP IV Vancomycin #1, Ancef x1 -f/u cx -Monitor CBC/CMP, temperatures -Sx f/u -wound care per surgical team -aspiration precautions Subjective Allergies: Coded Allergies: No Known Allergies (Unverified , 03/10/19) Subjective afebrile leukocytosis stable Bcx neg Objective Vital Signs Last 24 Hour Vital Signs Date Time Temp Pulse Resp B/P (MAP) Pulse Ox O2 Delivery O2 Flow Rate FiO2 03/30/19 09:00 Room Air 03/30/19 08:00 98.6 92 18 140/75 (96) 97 03/30/19 04:00 99.1 97 16 136/73 (94) 97 03/30/19 00:00 99.1 97 18 136/73 (94) 97 03/29/19 21:00 Room Air 03/29/19 20:00 98.0 86 16 113/52 (72) 98 03/29/19 16:00 98.3 92 18 124/68 (86) 03/29/19 12:00 98.3 90 16 122/69 (86) Height (Feet): 5 Height (Inches): 0.00 Weight (Pounds): 112 Objective General appearance: alert, cooperative, no distress, appears stated age Head: Normocephalic, without obvious abnormality, atraumatic Eyes: conjunctivae/corneas clear. PERRL, EOM's intact. Fundi benign Throat: Lips, mucosa, and tongue normal. Teeth and gums normal Neck: supple, symmetrical, trachea midline, no adenopathy, thyroid: not enlarged, symmetric, no tenderness/mass/nodules, no carotid bruit and no JVD Lungs: clear to auscultation bilaterally Heart: regular rate and rhythm, S1, S2 normal, no murmur, click, rub or gallop Abdomen: soft, peritonitis with tender. Bowel sounds normal. No masses, no organomegaly Extremities: extremities normal, atraumatic, no cyanosis or edema Pulses: 2+ and symmetric Skin: Skin color, texture, turgor normal. No rashes or lesions Neurologic: Grossly normal Laboratory Tests Test 03/30/19 04:40 White Blood Count 15.5 K/UL (4.8-10.8) H Red Blood Count 3.63 M/UL (4.20-5.40) L Hemoglobin 10.1 G/DL (12.0-16.0) L Hematocrit 31.6 % (37.0-47.0) L Mean Corpuscular Volume 87 FL (80-99) Mean Corpuscular Hemoglobin 27.7 PG (27.0-31.0) Mean Corpuscular Hemoglobin Concent 31.8 G/DL (32.0-36.0) L Red Cell Distribution Width 16.5 % (11.6-14.8) H Platelet Count 392 K/UL (150-450) Mean Platelet Volume 6.6 FL (6.5-10.1) Neutrophils (%) (Auto) 74.2 % (45.0-75.0) Lymphocytes (%) (Auto) 14.9 % (20.0-45.0) L Monocytes (%) (Auto) 9.1 % (1.0-10.0) Eosinophils (%) (Auto) 0.5 % (0.0-3.0) Basophils (%) (Auto) 1.2 % (0.0-2.0) Sodium Level 139 MMOL/L (136-145) Potassium Level 4.1 MMOL/L (3.5-5.1) Chloride Level 108 MMOL/L (98-107) H Carbon Dioxide Level 21 MMOL/L (21-32) Anion Gap 10 mmol/L (5-15) Blood Urea Nitrogen 11 mg/dL (7-18) Creatinine 0.6 MG/DL (0.55-1.30) Estimat Glomerular Filtration Rate mL/min (>60) Glucose Level 115 MG/DL (74-106) H Calcium Level 9.1 MG/DL (8.5-10.1) Current Medications Medications (Trade) Dose Ordered Sig/Shantelle Route PRN Reason Start Time Stop Time Status Last Admin Dose Admin Acetaminophen (Tylenol) 650 mg Q4H PRN ORAL Mild Pain/Temp > 100.5 03/19/19 16:00 04/18/19 15:59 03/29/19 08:54 Barium Sulfate (Readi-Cat 2) 450 ml PRN PRN ORAL Radiology Procedure 03/27/19 13:30 04/26/19 13:29 Cefepime HCl 1 gm/ Dextrose 55 ml @ 110 mls/hr DAILY IVPB 03/30/19 09:00 04/06/19 08:59 03/30/19 10:13 Dextrose (Dextrose 50%) 25 ml Q30M PRN IV Hypoglycemia 03/23/19 08:45 04/22/19 08:44 Dextrose (Dextrose 50%) 50 ml Q30M PRN IV Hypoglycemia 03/23/19 08:45 04/22/19 08:44 Glipizide (Glucotrol) 5 mg BIAC ORAL 03/21/19 16:30 04/20/19 16:29 03/30/19 06:02 Heparin Sodium (Porcine) (Heparin 5000 units/ml) 5,000 units EVERY 12 HOURS SUBQ 03/13/19 21:00 04/09/19 20:59 03/30/19 09:46 Insulin Aspart (NovoLOG) BEFORE MEALS AND HS SUBQ 03/23/19 11:30 04/22/19 11:29 03/30/19 11:54 Metronidazole (Flagyl) 500 mg Q8HR ORAL 03/23/19 14:00 04/03/19 13:59 03/30/19 06:02 Nateglinide (Starlix) 120 mg TIAC ORAL 03/23/19 11:30 04/22/19 11:29 03/30/19 11:18 Ondansetron HCl (Zofran) 4 mg Q6H PRN IVP Nausea & Vomiting 03/13/19 19:15 04/09/19 13:14 Pantoprazole (Protonix) 40 mg EVERY 12 HOURS ORAL 03/16/19 21:00 04/15/19 20:59 03/30/19 09:44 Janette Stallworth M.D. Mar 30, 2019 11:58
[2019-03-30 12:00] VITALS: BP 121/64
--- NOTE | 2019-03-30 12:39 | NUR ---
CEO NAPEDODONTIST SI: LEUKOCYTOSIS PERFORATED VICIOUS T. 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
--- NOTE | 2019-03-30 14:04 | NUR ---
RD ASSESSMENT & RECOMMENDATIONS SEE CARE ACTIVITY FOR COMPLETE ASSESSMENT DAILY ESTIMATED NEEDS: Needs based on Surgery, DM / 53.6kg 25-35 kcals/kg 1417-3838 total kcals 1-2 g protein/kg 54-107 g total protein 25-30 mL/kg 4472-2419 total fluid mLs NUTRITION DIAGNOSIS: * Altered GI function R/T perforated gastric ulcer as evidenced by s/p ex lap, abdominal washout, partial omentectomy, imelda patch for repair of perforated pre-pyloric ulcer, diet now advanced to regular. * Altered nutrition related lab values R/T diabetes, clinical condition as evidenced by elev BGs (177 226 332->115 155), POC glu (114-247), A1C 10.2, urine glucose 4+, low phos and mg, elev triglycerides (300). CURRENT DIET:CCHO MED PO DIET RECOMMENDATIONS: BLAND, CCHO LOW DIET ADDITIONAL RECOMMENDATIONS: * Monitor BGs closely, consider long acting insulin * Calibrated bedscale wt for accurate CBW * Monitor lytes, replete as needed (low mag) * Lipid lowering agent for elev triglyceride (300) * F/up wound eval: rec add MVI x 1, Vit C 250mg QD . .
[2019-03-30 16:00] VITALS: BP 132/67
--- NOTE | 2019-03-30 19:45 | NUR ---
NURSE NOTES: Received report from SARAI Huang. Rounds done, patient ambulating in hallway with son's assistance. Steady gait, tolerated very well. No distress noted.
--- NOTE | 2019-03-30 19:49 | NUR ---
NURSE NOTES: Pt currently walking with family no complaints of pain, no signs of possible dermatological side effect related to IV antibiotics . Current paln of care will be rendered. Sutures remain in place open to air with no signs of infection to incision
--- NOTE | 2019-03-30 19:51 | NUR ---
HAND-OFF: Report given to Ese MOON.
[2019-03-30 20:00] VITALS: BP 119/68
--- NOTE | 2019-03-30 20:00 | NUR ---
NURSE NOTES: Patient alert, oriented x3. Family at bedside, no distress noted. Denies any pain at this time. 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 Encouraged to call as needed for assistance. Bed in low position and locked, side rails up x2, call light within reach. Will continue to monitor.
[2019-03-31] VITALS: BP 124/80
[2019-03-31 04:00] VITALS: BP 128/67
[2019-03-31] MEDS: NovoLOG Insulin Flexpen SUBQ SCH ×4 (06:34→21:14)
[2019-03-31] MEDS: metroNIDAZOLE 500mg tab ORAL SCH ×3 (06:35→21:13)
[2019-03-31] MEDS: GlipiZIDE 5mg tab ORAL SCH ×2 (06:56→16:51)
--- NOTE | 2019-03-31 07:01 | NUR ---
NURSE NOTES: Given PO meds, breakfast served. No distress noted.
--- NOTE | 2019-03-31 07:14 | NUR ---
HAND-OFF: Report given to SARAI Huang. Patient awake, having breakfast, no distress noted.
--- NOTE | 2019-03-31 07:17 | NUR ---
NURSE NOTES: Care will be rendered to incorporate ambulation, pain management , and antibiotic therapy. Pt has 12 children who are concerned with plan of care . Pt is verbal able to verbalize known needs, meal intake requires to be encouraged. Needs assistance with walker for bathroom needs. Call light is in reach.
--- NOTE | 2019-03-31 07:39 | NUR ---
NURSE NOTES: Pt sitting in chair eating breakfast, son at bedside. Refused oatmeal and eggs. Substitute refused. Encouraged to drink shake. Call light in reach.
[2019-03-31 08:00] VITALS: BP 127/60
[2019-03-31] MEDS: Heparin 5000 units/ml inj SUBQ SCH ×2 (09:07→20:33)
[2019-03-31] MEDS: Cefepime HCl 1 GM in D5W 55 ML IVPB SCH (09:10)
--- NOTE | 2019-03-31 11:53 | Infectious Diseases Prog Note ---
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 Right adnexal region irregular fluid collection, corresponding to findings reported on recent CT scan. This is contiguous with an immediately adjacent segment of bowel.This likewise corresponds to findings on recent CT. Note that the fluid collection and extent are better delineated on the prior study. Nonvisualized left ovary -CT abd/p: Markedly thickened and fluid-filled endometrium. 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 Complex multilobulated fluid collection with areas of enhancing soft tissue in the right adnexal region. This measures 5.5 x 7 x 3.9 cm. There is also a second tiny collection adjacent to the distal rectum. One possible etiology is, given the above finding, a tubo-ovarian abscess, related to retrograde propagation of endometritis. A second possibility is that this represents acute diverticulitis with peridiverticular abscess, given the close relationship with the distal sigmoid colon. A third possibility is this represents an abscess related to infected pelvic fluid from the prior gastric perforation, as the previous exam did demonstrate a small amount of free fluid in the pelvis. Finally, given the presence of the appendix (which isprominent in caliber) at the edge of the collection, this could represent perforated acute distal appendicitis. However, this is deemed less likely. Evidence of interim repair of previously demonstrated perforated gastric ulcer. No evidence of contrast leakage. No abnormal fluid collection at the operative site. Colonic diverticulosis. Slight rim enhancement of the gallbladder. Slight pericholecystic fluid. However, the gallbladder is nondistended, so doubt significance of this. Bilateral basilar pulmonary parenchymal groundglass opacity, likely on the basis of mild pulmonary edema Fever, SP Leukocytosis, recurrent, persistent-2 ry to above -9/4 Bcx Neg -03/22 CXR: Cardiomegaly.Bilateral basilar atelectasis or scarring. Decreased left pleural fluid u/a neg -9/2 BCx Neg -03/20 CXR: Subsegmental atelectasis versus infiltrate in the left lung base. -03/19 u/a neg Cdiff neg -v/ duplex no DVT Perforated pre-pyloric gastric ulcer -03/15 s/p UGI series: Negative for postoperative leak -03/10 SP 03/10 SP Exploratory Laparotomy, Abdominal washout. Partial omentectomy. Shane patch for repair of perforated pre-pyloric ulcer. -03/10 CT abd/p: Free intraperitoneal gas. Etiology not completely certain, but gas within and extending from the anterior gastric antral wall is suspicious for a perforated gastric ulcer. Perforated descending colon diverticulitis also possible but deemed much less likely. Free intraperitoneal fluid, presumably related to the above. Fatty liver. Basilar pulmonary parenchymal groundglass opacities. This could indicate pulmonary edema, among other possibilities. Subcentimeter low-attenuation renal lesions, too small to characterize, most likely benign simple cyst. No further follow-up necessary. 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 Acute encephalopathy -CT head: Chronic and age-related changes. Negative for acute intracranial bleed or mass effect VDRF, post-op; extubated 03/12 DARRON, SP Dm2 HTN Plan: -Cont empiric Cefepime #10 and PO Flagyl #9 for intraabdominal abscess -Discussed with Dr Sheth. It is unclear origin of abscess if complication from prior gastric perforation vs gynecological origin vs sigmoid related. Patient no longer afebrile and it is felt she is high risk for surgical re-exploration. Will recommend a total 6 weeks of IV ertapenem; end date 05/01/19; weekly CBC, CMP -03/22 SP Fluconazole #10 -03/15 SP Zosyn #6 -03/10 SP IV Vancomycin #1, Ancef x1 -f/u cx -Monitor CBC/CMP, temperatures -Sx f/u -wound care per surgical team -aspiration precautions Subjective Allergies: Coded Allergies: No Known Allergies (Unverified , 03/10/19) Subjective afebrile leukocytosis stable Objective Vital Signs Last 24 Hour Vital Signs Date Time Temp Pulse Resp B/P (MAP) Pulse Ox O2 Delivery O2 Flow Rate FiO2 03/31/19 04:00 98.6 88 16 128/67 (87) 98 03/31/19 00:00 98.8 82 18 124/80 (95) 98 03/30/19 21:00 Room Air 03/30/19 20:00 97.9 85 17 119/68 (85) 98 03/30/19 16:00 98.6 85 20 132/67 (88) 97 03/30/19 12:00 98.6 105 20 121/64 (83) Height (Feet): 5 Height (Inches): 0.00 Weight (Pounds): 112 Objective General appearance: alert, cooperative, no distress, appears stated age Head: Normocephalic, without obvious abnormality, atraumatic Eyes: conjunctivae/corneas clear. PERRL, EOM's intact. Fundi benign Throat: Lips, mucosa, and tongue normal. Teeth and gums normal Neck: supple, symmetrical, trachea midline, no adenopathy, thyroid: not enlarged, symmetric, no tenderness/mass/nodules, no carotid bruit and no JVD Lungs: clear to auscultation bilaterally Heart: regular rate and rhythm, S1, S2 normal, no murmur, click, rub or gallop Abdomen: soft, peritonitis with tender. Bowel sounds normal. No masses, no organomegaly Extremities: extremities normal, atraumatic, no cyanosis or edema Pulses: 2+ and symmetric Skin: Skin color, texture, turgor normal. No rashes or lesions Neurologic: Grossly normal Current Medications Medications (Trade) Dose Ordered Sig/Shantelle Route PRN Reason Start Time Stop Time Status Last Admin Dose Admin Acetaminophen (Tylenol) 650 mg Q4H PRN ORAL Mild Pain/Temp > 100.5 03/19/19 16:00 04/18/19 15:59 03/29/19 08:54 Barium Sulfate (Readi-Cat 2) 450 ml PRN PRN ORAL Radiology Procedure 03/27/19 13:30 04/26/19 13:29 Cefepime HCl 1 gm/ Dextrose 55 ml @ 110 mls/hr DAILY IVPB 03/30/19 09:00 04/06/19 08:59 03/31/19 09:10 Dextrose (Dextrose 50%) 25 ml Q30M PRN IV Hypoglycemia 03/23/19 08:45 04/22/19 08:44 Dextrose (Dextrose 50%) 50 ml Q30M PRN IV Hypoglycemia 03/23/19 08:45 04/22/19 08:44 Glipizide (Glucotrol) 5 mg BIAC ORAL 03/21/19 16:30 04/20/19 16:29 03/31/19 06:56 Heparin Sodium (Porcine) (Heparin 5000 units/ml) 5,000 units EVERY 12 HOURS SUBQ 03/13/19 21:00 04/09/19 20:59 03/31/19 09:07 Insulin Aspart (NovoLOG) BEFORE MEALS AND HS SUBQ 03/23/19 11:30 04/22/19 11:29 03/31/19 06:34 Metronidazole (Flagyl) 500 mg Q8HR ORAL 03/23/19 14:00 04/03/19 13:59 03/31/19 06:35 Nateglinide (Starlix) 120 mg TIAC ORAL 03/23/19 11:30 04/22/19 11:29 03/31/19 06:57 Ondansetron HCl (Zofran) 4 mg Q6H PRN IVP Nausea & Vomiting 03/13/19 19:15 04/09/19 13:14 03/31/19 09:06 Pantoprazole (Protonix) 40 mg EVERY 12 HOURS ORAL 03/16/19 21:00 04/15/19 20:59 03/31/19 09:05 Janette Stallworth M.D. Mar 31, 2019 11:53
[2019-03-31 12:00] VITALS: BP 130/87
--- NOTE | 2019-03-31 12:20 | Pulmonology Progress Note ---
Assessment/Plan Problems: (1) Sepsis (2) S/P exploratory laparotomy (3) Perforated abdominal viscus (4) Septic shock (5) Diabetes mellitus (6) Peritonitis Assessment/Plan improving on regular diet needs 6 weeks of iv abx as per ID for intra abdominal abscess wbc high, stable Subjective ROS Limited/Unobtainable: No Constitutional: Reports: no symptoms HEENT: Repors: no symptoms Allergies: Coded Allergies: No Known Allergies (Unverified , 03/10/19) Objective Last 24 Hour Vital Signs Date Time Temp Pulse Resp B/P (MAP) Pulse Ox O2 Delivery O2 Flow Rate FiO2 03/31/19 04:00 98.6 88 16 128/67 (87) 98 03/31/19 00:00 98.8 82 18 124/80 (95) 98 03/30/19 21:00 Room Air 03/30/19 20:00 97.9 85 17 119/68 (85) 98 03/30/19 16:00 98.6 85 20 132/67 (88) 97 Intake and Output 03/30/19 03/31/19 19:00 07:00 Intake Total 295 ml 350 ml Balance 295 ml 350 ml Intake Oral 240 ml 350 ml IV Total 55 ml # Voids 3 4 General Appearance: WD/WN HEENT: atraumatic, anicteric Respiratory/Chest: chest wall non-tender, lungs clear Breasts: no masses Cardiovascular: normal rate Abdomen: normal bowel sounds, soft, non tender Genitourinary: normal external genitalia Skin: no rash 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 II-XII grossly normal Current Medications Medications (Trade) Dose Ordered Sig/Shantelle Route PRN Reason Start Time Stop Time Status Last Admin Dose Admin Acetaminophen (Tylenol) 650 mg Q4H PRN ORAL Mild Pain/Temp > 100.5 03/19/19 16:00 04/18/19 15:59 03/29/19 08:54 Barium Sulfate (Readi-Cat 2) 450 ml PRN PRN ORAL Radiology Procedure 03/27/19 13:30 04/26/19 13:29 Cefepime HCl 1 gm/ Dextrose 55 ml @ 110 mls/hr DAILY IVPB 03/30/19 09:00 04/06/19 08:59 03/31/19 09:10 Dextrose (Dextrose 50%) 25 ml Q30M PRN IV Hypoglycemia 03/23/19 08:45 10/4/19 08:44 Dextrose (Dextrose 50%) 50 ml Q30M PRN IV Hypoglycemia 03/23/19 08:45 04/22/19 08:44 Glipizide (Glucotrol) 5 mg BIAC ORAL 03/21/19 16:30 04/20/19 16:29 03/31/19 06:56 Heparin Sodium (Porcine) (Heparin 5000 units/ml) 5,000 units EVERY 12 HOURS SUBQ 03/13/19 21:00 04/09/19 20:59 03/31/19 09:07 Insulin Aspart (NovoLOG) BEFORE MEALS AND HS SUBQ 03/23/19 11:30 04/22/19 11:29 03/31/19 06:34 Metronidazole (Flagyl) 500 mg Q8HR ORAL 03/23/19 14:00 04/03/19 13:59 03/31/19 06:35 Nateglinide (Starlix) 120 mg TIAC ORAL 03/23/19 11:30 04/22/19 11:29 03/31/19 06:57 Ondansetron HCl (Zofran) 4 mg Q6H PRN IVP Nausea & Vomiting 03/13/19 19:15 04/09/19 13:14 03/31/19 09:06 Pantoprazole (Protonix) 40 mg EVERY 12 HOURS ORAL 03/16/19 21:00 04/15/19 20:59 03/31/19 09:05 Bibiana Pennington MD Mar 31, 2019 12:20
--- NOTE | 2019-03-31 13:04 | NUR ---
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 98.6 HR 88 RR 16 B/P 128/67 RA 98% IS: CEFEPIME IV FLAGYL PO PROTONIX PO HEPARIN SUBC MED/SURG STATUS
--- NOTE | 2019-03-31 15:51 | Nephrology Progress Note ---
Assessment/Plan Problem List: (1) Perforated abdominal viscus (2) Hypokalemia (3) Hypomagnesemia (4) Diabetes mellitus (5) Anemia Assessment WBC rising Post lap on 03/10 Low K Low Phos Low Mag Anemia DM h/o HTN Plan add oral hypoglycemics for high BS high K likely hemolysis resolved DC IV mag supplement change all to orals Mag and K and Phos IV as needed Anemia claudio Keep BP and BS in check per orders DC planning Subjective ROS Limited/Unobtainable: No Constitutional: Reports: malaise Objective Objective Last 24 Hour Vital Signs Date Time Temp Pulse Resp B/P (MAP) Pulse Ox O2 Delivery O2 Flow Rate FiO2 03/31/19 12:00 98.7 87 18 130/87 (101) 95 03/31/19 09:00 Room Air 03/31/19 08:00 98.4 86 18 127/60 (82) 98 03/31/19 04:00 98.6 88 16 128/67 (87) 98 03/31/19 00:00 98.8 82 18 124/80 (95) 98 03/30/19 21:00 Room Air 03/30/19 20:00 97.9 85 17 119/68 (85) 98 03/30/19 16:00 98.6 85 20 132/67 (88) 97 Intake and Output 03/30/19 03/31/19 19:00 07:00 Intake Total 295 ml 350 ml Balance 295 ml 350 ml Intake Oral 240 ml 350 ml IV Total 55 ml # Voids 3 4 Height (Feet): 5 Height (Inches): 0.00 Weight (Pounds): 112 General Appearance: no apparent distress Objective no change El Clark MD Mar 31, 2019 15:51
[2019-03-31 16:00] VITALS: BP 128/76
--- NOTE | 2019-03-31 16:29 | Internal Med Progress Note ---
Subjective Date of Service: Mar 31, 2019 Physician Name GreciaZen Attending Physician Marcos Silva MD Current Medications Medications (Trade) Dose Ordered Sig/Shantelle Route PRN Reason Start Time Stop Time Status Last Admin Dose Admin Acetaminophen (Tylenol) 650 mg Q4H PRN ORAL Mild Pain/Temp > 100.5 03/19/19 16:00 04/18/19 15:59 03/29/19 08:54 Barium Sulfate (Readi-Cat 2) 450 ml PRN PRN ORAL Radiology Procedure 03/27/19 13:30 04/26/19 13:29 Cefepime HCl 1 gm/ Dextrose 55 ml @ 110 mls/hr DAILY IVPB 03/30/19 09:00 04/06/19 08:59 03/31/19 09:10 Dextrose (Dextrose 50%) 25 ml Q30M PRN IV Hypoglycemia 03/23/19 08:45 04/22/19 08:44 Dextrose (Dextrose 50%) 50 ml Q30M PRN IV Hypoglycemia 03/23/19 08:45 04/22/19 08:44 Glipizide (Glucotrol) 5 mg BIAC ORAL 03/21/19 16:30 04/20/19 16:29 03/31/19 06:56 Heparin Sodium (Porcine) (Heparin 5000 units/ml) 5,000 units EVERY 12 HOURS SUBQ 03/13/19 21:00 04/09/19 20:59 03/31/19 09:07 Insulin Aspart (NovoLOG) BEFORE MEALS AND HS SUBQ 03/23/19 11:30 04/22/19 11:29 03/31/19 12:38 Metronidazole (Flagyl) 500 mg Q8HR ORAL 03/23/19 14:00 04/03/19 13:59 03/31/19 13:56 Nateglinide (Starlix) 120 mg TIAC ORAL 03/23/19 11:30 04/22/19 11:29 03/31/19 12:35 Ondansetron HCl (Zofran) 4 mg Q6H PRN IVP Nausea & Vomiting 03/13/19 19:15 04/09/19 13:14 03/31/19 09:06 Pantoprazole (Protonix) 40 mg EVERY 12 HOURS ORAL 03/16/19 21:00 04/15/19 20:59 03/31/19 09:05 Allergies: Coded Allergies: No Known Allergies (Unverified , 03/10/19) ROS Limited/Unobtainable: No Constitutional: Reports: no symptoms HEENT: Reports: no symptoms Cardiovascular: Reports: no symptoms Respiratory: Reports: no symptoms Gastrointestinal/Abdominal: Reports: no symptoms Genitourinary: Reports: no symptoms Neurologic/Psychiatric: Reports: no symptoms Subjective 84 YO F admitted with abdominal pain. S/P exploratory laparotomy 03/10/19. Now intra-abdominal abscess. Cover for Int Med-Dr Silva. Objective Last Vital Signs Date Time Temp Pulse Resp B/P (MAP) Pulse Ox O2 Delivery O2 Flow Rate FiO2 03/31/19 16:00 98.8 94 20 128/76 (93) 03/31/19 12:00 95 03/31/19 09:00 Room Air 03/27/19 19:32 21 Intake and Output 03/30/19 03/31/19 19:00 07:00 Intake Total 295 ml 350 ml Balance 295 ml 350 ml Intake Oral 240 ml 350 ml IV Total 55 ml # Voids 3 4 Objective PHYSICAL EXAMINATION: GENERAL: The patient is a well developed, well nourished female who is intubated and sedated. HEENT: Eyes, pupils equal and responsive to light and accommodation. Extraocular movements are intact. NECK: Supple without lymphadenopathy. CHEST: Nasc canula; Few diffuse wheezes bilaterally. Otherwise, without wheezes or rales. CARDIOVASCULAR: Regular rhythm rate. S1-S2 are normal without murmurs, rubs, or gallops. ABDOMEN: NGT; Soft, nontender with decreased bowel sounds. No evidence of hepatosplenomegaly. no rebound or guarding noted. EXTREMITIES: Negative for clubbing, cyanosis, edema. RECTAL/GENITAL: Not performed. NEUROLOGIC: Cranial nerves II through XII are grossly intact without focal deficits. Assessment/Plan Assessment/Plan ASSESSMENT: This is an 84-year-old female. 1. Perforated gastric ulcer 2. Abdominal pain. 3. Nausea with vomiting. 4. Diabetes type 2. 5. Hypertension. 6. Post Op fever-resolved 7. Leukocytosis 8. Intraabdominal abscess TREATMENT: 1. Perforated gastric ulcer. A General Surgery consultation has been obtained with Dr. Sheth. S/P exploratory laparotomy 03/10/19=perforated Pre pyloric ulcer. Tolerating regular diet; NGT discontinued per surgery 2. Diabetes type 2. NovoLog sliding scale has been instituted. 3. Hypertension. The patient is currently hypotensive. 4. Respiratory failure. S/P extubation 03/12/19. A Pulmonary consultation has been obtained with Dr. Bibiana Pennington. 5. Med/surg 6. ABX=cefepime and flagyl per ID 7. Surgical intervention on hold for intraabdominal abscess-see surgery note. Will require 6 weeks of ertapenem per ID Zen Paige MD Mar 31, 2019 16:29
--- NOTE | 2019-03-31 17:43 | NUR ---
NURSE NOTES: Pt sitting up in chair, has not had further complaints of abdominal discomfort. 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
--- NOTE | 2019-03-31 19:36 | NUR ---
HAND-OFF: Report given to Ese MOON made aware that pt is lively , zofran given times, son has been at bedside since 7am recently departed at 1920. Has family at bedside at thsi time . No BM this shift. New IV to left forearm 22 gauge.
--- NOTE | 2019-03-31 19:40 | NUR ---
Received report from SARAI Huang. Patient sitting up in chair, visiting with family members. In good spirits. IV saline lock was started by AM shift in L wrist,#22. No complaints of pain at this time. Bed is in low position, locked, side rails up x2, call light within reach. Will continue to monitor.
[2019-03-31 20:00] VITALS: BP 129/74
[2019-04-01] VITALS: BP 144/73
[2019-04-01 04:00] VITALS: BP 108/64
[2019-04-01] MEDS: GlipiZIDE 5mg tab ORAL SCH ×2 (06:30→16:15)
[2019-04-01] MEDS: NovoLOG Insulin Flexpen SUBQ SCH ×4 (06:30→21:10)
[2019-04-01 06:44] LABS: ANION GAP 10 mmol/L (5-15); BLOOD UREA NITROGEN 12 mg/dL (7-18); CALCIUM 9.1 MG/DL (8.5-10.1); CARBON DIOXIDE 22 MMOL/L (21-32); CHLORIDE 109 MMOL/L (98-107); CREATININE 0.5 MG/DL (0.55-1.30); POTASSIUM 3.9 MMOL/L (3.5-5.1); SODIUM 141 MMOL/L (136-145)
--- NOTE | 2019-04-01 07:00 | NUR ---
NURSE NOTES: Noted meds (glucotrol and starlix) not administered: BS was 101, patient has not eaten any breakfast and doesn't feel like eating at this time. Will pass info onto AM nurse. Addendum: 04/01/19 at 0759 by Ese Lemon RN Charge nurse aware and concur with above.
[2019-04-01 07:05] LABS: BASOPHILS % (AUTO) 1.3 % (0.0-2.0); EOSINOPHILS % (AUTO) 0.6 % (0.0-3.0); HEMATOCRIT 30.5 % (37.0-47.0); HEMOGLOBIN 9.6 G/DL (12.0-16.0); LYMPHOCYTES % (AUTO) 19.6 % (20.0-45.0); MEAN CORPUSCULAR VOLUME 87 FL (80-99); MONOCYTES % (AUTO) 10.3 % (1.0-10.0); NEUTROPHILS % (AUTO) 68.2 % (45.0-75.0); PLATELET COUNT 325 K/UL (150-450); RED BLOOD COUNT 3.49 M/UL (4.20-5.40); WHITE BLOOD COUNT 10.3 K/UL (4.8-10.8)
[2019-04-01] MEDS: metroNIDAZOLE 500mg tab ORAL SCH ×3 (07:19→21:13)
--- NOTE | 2019-04-01 07:40 | NUR ---
HAND-OFF: Report given to SARAI Huang. Made aware of DM meds withheld due to blood sugar 101 mg/dl and patient has not eaten breakfast.
--- NOTE | 2019-04-01 07:46 | NUR ---
NURSE NOTES: Pt is up and awake. Pt does not want to eat at this time. Bed is a safe position . Call light is in reach.
[2019-04-01 08:00] VITALS: BP 134/68
--- NOTE | 2019-04-01 08:39 | Nephrology Progress Note ---
Assessment/Plan Problem List: (1) Perforated abdominal viscus (2) Hypokalemia (3) Hypomagnesemia (4) Diabetes mellitus (5) Anemia Assessment WBC rising Post lap on 03/10 Low K Low Phos Low Mag Anemia DM h/o HTN Plan add oral hypoglycemics for high BS high K likely hemolysis resolved DC IV mag supplement change all to orals Mag and K and Phos IV as needed Anemia claudio Keep BP and BS in check per orders DC planning Subjective ROS Limited/Unobtainable: No Objective Objective Last 24 Hour Vital Signs Date Time Temp Pulse Resp B/P (MAP) Pulse Ox O2 Delivery O2 Flow Rate FiO2 04/01/19 04:00 98.7 80 18 108/64 (79) 94 04/01/19 00:00 98.5 90 18 144/73 (96) 96 03/31/19 21:03 Room Air 03/31/19 20:00 98.5 87 20 129/74 (92) 95 03/31/19 16:00 98.8 94 20 128/76 (93) 03/31/19 12:00 98.7 87 18 130/87 (101) 95 03/31/19 09:00 Room Air Intake and Output 03/31/19 04/01/19 18:59 06:59 Intake Total 295 ml 600 ml Balance 295 ml 600 ml Intake Oral 240 ml 600 ml IV Total 55 ml # Voids 4 3 Laboratory Tests 04/01/19 05:10: White Blood Count 10.3, Red Blood Count 3.49L, Hemoglobin 9.6L, Hematocrit 30.5L , Mean Corpuscular Volume 87, Mean Corpuscular Hemoglobin 27.5, Mean Corpuscular Hemoglobin Concent 31.5L, Red Cell Distribution Width 17.0H, Platelet Count 325, Mean Platelet Volume 6.5, Neutrophils (%) (Auto) 68.2, Lymphocytes (%) (Auto) 19.6L, Monocytes (%) (Auto) 10.3H, Eosinophils (%) (Auto ) 0.6, Basophils (%) (Auto) 1.3, Erythrocyte Sedimentation Rate 116H, Sodium Level 141, Potassium Level 3.9, Chloride Level 109H, Carbon Dioxide Level 22, Anion Gap 10, Blood Urea Nitrogen 12, Creatinine 0.5L, Estimat Glomerular Filtration Rate , Glucose Level 107H, Calcium Level 9.1, C-Reactive Protein, Quantitative 3.0H Height (Feet): 5 Height (Inches): 0.00 Weight (Pounds): 112 General Appearance: no apparent distress Objective no change El Clark MD Apr 01, 2019 08:39
[2019-04-01] MEDS: Cefepime HCl 1 GM in D5W 55 ML IVPB SCH (09:39)
[2019-04-01] MEDS: Heparin 5000 units/ml inj SUBQ SCH ×2 (09:40→21:07)
--- NOTE | 2019-04-01 11:16 | Pulmonology Progress Note ---
Assessment/Plan Problems: (1) Intra-abdominal abscess (2) Sepsis (3) Perforated abdominal viscus (4) S/P exploratory laparotomy (5) Septic shock (6) Diabetes mellitus (7) Peritonitis Assessment/Plan improving on regular diet needs 6 weeks of iv abx as per ID for intra abdominal abscess wbc high, stable Subjective ROS Limited/Unobtainable: No Constitutional: Reports: no symptoms HEENT: Repors: no symptoms Respiratory: Reports: no symptoms Allergies: Coded Allergies: No Known Allergies (Unverified , 03/10/19) Objective Last 24 Hour Vital Signs Date Time Temp Pulse Resp B/P (MAP) Pulse Ox O2 Delivery O2 Flow Rate FiO2 04/01/19 04:00 98.7 80 18 108/64 (79) 94 04/01/19 00:00 98.5 90 18 144/73 (96) 96 03/31/19 21:03 Room Air 03/31/19 20:00 98.5 87 20 129/74 (92) 95 03/31/19 16:00 98.8 94 20 128/76 (93) 03/31/19 12:00 98.7 87 18 130/87 (101) 95 Intake and Output 03/31/19 04/01/19 18:59 06:59 Intake Total 295 ml 600 ml Balance 295 ml 600 ml Intake Oral 240 ml 600 ml IV Total 55 ml # Voids 4 3 General Appearance: WD/WN HEENT: normocephalic, mucous membranes moist Respiratory/Chest: chest wall non-tender, lungs clear Breasts: no masses Cardiovascular: normal rate Abdomen: normal bowel sounds, soft, non tender Laboratory Tests 04/01/19 05:10: White Blood Count 10.3, Red Blood Count 3.49L, Hemoglobin 9.6L, Hematocrit 30.5L , Mean Corpuscular Volume 87, Mean Corpuscular Hemoglobin 27.5, Mean Corpuscular Hemoglobin Concent 31.5L, Red Cell Distribution Width 17.0H, Platelet Count 325, Mean Platelet Volume 6.5, Neutrophils (%) (Auto) 68.2, Lymphocytes (%) (Auto) 19.6L, Monocytes (%) (Auto) 10.3H, Eosinophils (%) (Auto ) 0.6, Basophils (%) (Auto) 1.3, Erythrocyte Sedimentation Rate 116H, Sodium Level 141, Potassium Level 3.9, Chloride Level 109H, Carbon Dioxide Level 22, Anion Gap 10, Blood Urea Nitrogen 12, Creatinine 0.5L, Estimat Glomerular Filtration Rate , Glucose Level 107H, Calcium Level 9.1, C-Reactive Protein, Quantitative 3.0H Current Medications Medications (Trade) Dose Ordered Sig/Shantelle Route PRN Reason Start Time Stop Time Status Last Admin Dose Admin Acetaminophen (Tylenol) 650 mg Q4H PRN ORAL Mild Pain/Temp > 100.5 03/19/19 16:00 04/18/19 15:59 03/31/19 21:22 Barium Sulfate (Readi-Cat 2) 450 ml PRN PRN ORAL Radiology Procedure 03/27/19 13:30 04/26/19 13:29 Cefepime HCl 1 gm/ Dextrose 55 ml @ 110 mls/hr DAILY IVPB 03/30/19 09:00 04/06/19 08:59 04/01/19 09:39 Dextrose (Dextrose 50%) 25 ml Q30M PRN IV Hypoglycemia 03/23/19 08:45 04/22/19 08:44 Dextrose (Dextrose 50%) 50 ml Q30M PRN IV Hypoglycemia 03/23/19 08:45 04/22/19 08:44 Glipizide (Glucotrol) 5 mg BIAC ORAL 03/21/19 16:30 04/20/19 16:29 03/31/19 16:51 Heparin Sodium (Porcine) (Heparin 5000 units/ml) 5,000 units EVERY 12 HOURS SUBQ 03/13/19 21:00 04/09/19 20:59 04/01/19 09:40 Insulin Aspart (NovoLOG) BEFORE MEALS AND HS SUBQ 03/23/19 11:30 04/22/19 11:29 03/31/19 21:14 Metronidazole (Flagyl) 500 mg Q8HR ORAL 03/23/19 14:00 04/03/19 13:59 04/01/19 07:19 Nateglinide (Starlix) 120 mg TIAC ORAL 03/23/19 11:30 04/22/19 11:29 03/31/19 16:51 Ondansetron HCl (Zofran) 4 mg Q6H PRN IVP Nausea & Vomiting 03/13/19 19:15 04/09/19 13:14 03/31/19 09:06 Pantoprazole (Protonix) 40 mg EVERY 12 HOURS ORAL 03/16/19 21:00 04/15/19 20:59 04/01/19 09:38 Bibiana Pennington MD Apr 01, 2019 11:16
[2019-04-01 12:00] VITALS: BP 116/70
--- NOTE | 2019-04-01 13:33 | NUR ---
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 97.8 HR 91 RR 18 B/P 134/68 RA 98% ESR 116 IS; CEFEPIME IV FLAGYL PO PROTONIX HEPARIN SUBC MED/SURG STATUS
--- NOTE | 2019-04-01 13:59 | NUR ---
NURSE NOTES: Pt received dose of IV antibiotics did not verbalized nausea or vomiting related to possible adverse effects of antibiotics. Sitting up in chair tolerating activity level well. Did not verbalize pain upon this writing
--- NOTE | 2019-04-01 14:17 | NUR ---
P.T Weekly Progress Notes: Pt see this past week of P.T session. C/o abdominal pain has subsided to 3-0/10 depending on activities. Overall improved functional mobilities as evidenced by improved time efficiency and less mobility assistance. Pt currently able to perform bed mobilities Independent/Supervision and Transfers with SBA/Supervision for verbal cues as patient is forgetful in demonstrating safe transfer mobility technique. Pt able to ambulate and tolerate distance of average of 200 ft with SBA/supervision using the FWW. Will continue with FWW to maximize functional independence and safety during stay.
[2019-04-01 16:00] VITALS: BP 120/64
--- NOTE | 2019-04-01 16:14 | Infectious Diseases Prog Note ---
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 Right adnexal region irregular fluid collection, corresponding to findings reported on recent CT scan. This is contiguous with an immediately adjacent segment of bowel.This likewise corresponds to findings on recent CT. Note that the fluid collection and extent are better delineated on the prior study. Nonvisualized left ovary -CT abd/p: Markedly thickened and fluid-filled endometrium. 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 Complex multilobulated fluid collection with areas of enhancing soft tissue in the right adnexal region. This measures 5.5 x 7 x 3.9 cm. There is also a second tiny collection adjacent to the distal rectum. One possible etiology is, given the above finding, a tubo-ovarian abscess, related to retrograde propagation of endometritis. A second possibility is that this represents acute diverticulitis with peridiverticular abscess, given the close relationship with the distal sigmoid colon. A third possibility is this represents an abscess related to infected pelvic fluid from the prior gastric perforation, as the previous exam did demonstrate a small amount of free fluid in the pelvis. Finally, given the presence of the appendix (which isprominent in caliber) at the edge of the collection, this could represent perforated acute distal appendicitis. However, this is deemed less likely. Evidence of interim repair of previously demonstrated perforated gastric ulcer. No evidence of contrast leakage. No abnormal fluid collection at the operative site. Colonic diverticulosis. Slight rim enhancement of the gallbladder. Slight pericholecystic fluid. However, the gallbladder is nondistended, so doubt significance of this. Bilateral basilar pulmonary parenchymal groundglass opacity, likely on the basis of mild pulmonary edema Fever, SP Leukocytosis, recurrent, resolved-2 ry to above -9/4 Bcx Neg -03/22 CXR: Cardiomegaly.Bilateral basilar atelectasis or scarring. Decreased left pleural fluid u/a neg -9/2 BCx Neg -03/20 CXR: Subsegmental atelectasis versus infiltrate in the left lung base. -03/19 u/a neg Cdiff neg -v/ duplex no DVT Perforated pre-pyloric gastric ulcer -03/15 s/p UGI series: Negative for postoperative leak -03/10 SP 03/10 SP Exploratory Laparotomy, Abdominal washout. Partial omentectomy. Shane patch for repair of perforated pre-pyloric ulcer. -03/10 CT abd/p: Free intraperitoneal gas. Etiology not completely certain, but gas within and extending from the anterior gastric antral wall is suspicious for a perforated gastric ulcer. Perforated descending colon diverticulitis also possible but deemed much less likely. Free intraperitoneal fluid, presumably related to the above. Fatty liver. Basilar pulmonary parenchymal groundglass opacities. This could indicate pulmonary edema, among other possibilities. Subcentimeter low-attenuation renal lesions, too small to characterize, most likely benign simple cyst. No further follow-up necessary. 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 Acute encephalopathy -CT head: Chronic and age-related changes. Negative for acute intracranial bleed or mass effect VDRF, post-op; extubated 03/12 DARRON, SP Dm2 HTN Plan: -Cont empiric Cefepime #11 and PO Flagyl #10 for intraabdominal abscess -Discussed with Dr Sheth. It is unclear origin of abscess if complication from prior gastric perforation vs gynecological origin vs sigmoid related. Patient no longer afebrile and it is felt she is high risk for surgical re-exploration. Will recommend a total 6 weeks of IV ertapenem; end date 05/01/19; weekly CBC, CMP -03/22 SP Fluconazole #10 -03/15 SP Zosyn #6 -03/10 SP IV Vancomycin #1, Ancef x1 -f/u cx -Monitor CBC/CMP, temperatures -Sx f/u -wound care per surgical team -aspiration precautions Subjective Allergies: Coded Allergies: No Known Allergies (Unverified , 03/10/19) Subjective afebrile leukocytosis stable Objective Vital Signs Last 24 Hour Vital Signs Date Time Temp Pulse Resp B/P (MAP) Pulse Ox O2 Delivery O2 Flow Rate FiO2 04/01/19 12:00 97.8 91 18 116/70 (85) 04/01/19 09:00 Room Air 04/01/19 08:00 98.2 90 20 134/68 (90) 97 04/01/19 04:00 98.7 80 18 108/64 (79) 94 04/01/19 00:00 98.5 90 18 144/73 (96) 96 03/31/19 21:03 Room Air 03/31/19 20:00 98.5 87 20 129/74 (92) 95 Height (Feet): 5 Height (Inches): 0.00 Weight (Pounds): 112 Objective General appearance: alert, cooperative, no distress, appears stated age Head: Normocephalic, without obvious abnormality, atraumatic Eyes: conjunctivae/corneas clear. PERRL, EOM's intact. Fundi benign Throat: Lips, mucosa, and tongue normal. Teeth and gums normal Neck: supple, symmetrical, trachea midline, no adenopathy, thyroid: not enlarged, symmetric, no tenderness/mass/nodules, no carotid bruit and no JVD Lungs: clear to auscultation bilaterally Heart: regular rate and rhythm, S1, S2 normal, no murmur, click, rub or gallop Abdomen: soft, peritonitis with tender. Bowel sounds normal. No masses, no organomegaly Extremities: extremities normal, atraumatic, no cyanosis or edema Pulses: 2+ and symmetric Skin: Skin color, texture, turgor normal. No rashes or lesions Neurologic: Grossly normal Laboratory Tests Test 04/01/19 05:10 White Blood Count 10.3 K/UL (4.8-10.8) Red Blood Count 3.49 M/UL (4.20-5.40) L Hemoglobin 9.6 G/DL (12.0-16.0) L Hematocrit 30.5 % (37.0-47.0) L Mean Corpuscular Volume 87 FL (80-99) Mean Corpuscular Hemoglobin 27.5 PG (27.0-31.0) Mean Corpuscular Hemoglobin Concent 31.5 G/DL (32.0-36.0) L Red Cell Distribution Width 17.0 % (11.6-14.8) H Platelet Count 325 K/UL (150-450) Mean Platelet Volume 6.5 FL (6.5-10.1) Neutrophils (%) (Auto) 68.2 % (45.0-75.0) Lymphocytes (%) (Auto) 19.6 % (20.0-45.0) L Monocytes (%) (Auto) 10.3 % (1.0-10.0) H Eosinophils (%) (Auto) 0.6 % (0.0-3.0) Basophils (%) (Auto) 1.3 % (0.0-2.0) Erythrocyte Sedimentation Rate 116 MM/HR (0-30) H Sodium Level 141 MMOL/L (136-145) Potassium Level 3.9 MMOL/L (3.5-5.1) Chloride Level 109 MMOL/L (98-107) H Carbon Dioxide Level 22 MMOL/L (21-32) Anion Gap 10 mmol/L (5-15) Blood Urea Nitrogen 12 mg/dL (7-18) Creatinine 0.5 MG/DL (0.55-1.30) L Estimat Glomerular Filtration Rate mL/min (>60) Glucose Level 107 MG/DL (74-106) H Calcium Level 9.1 MG/DL (8.5-10.1) C-Reactive Protein, Quantitative 3.0 mg/dL (0.00-0.90) H Current Medications Medications (Trade) Dose Ordered Sig/Shantelle Route PRN Reason Start Time Stop Time Status Last Admin Dose Admin Acetaminophen (Tylenol) 650 mg Q4H PRN ORAL Mild Pain/Temp > 100.5 03/19/19 16:00 04/18/19 15:59 03/31/19 21:22 Barium Sulfate (Readi-Cat 2) 450 ml PRN PRN ORAL Radiology Procedure 03/27/19 13:30 04/26/19 13:29 Cefepime HCl 1 gm/ Dextrose 55 ml @ 110 mls/hr DAILY IVPB 03/30/19 09:00 04/06/19 08:59 04/01/19 09:39 Dextrose (Dextrose 50%) 25 ml Q30M PRN IV Hypoglycemia 03/23/19 08:45 04/22/19 08:44 Dextrose (Dextrose 50%) 50 ml Q30M PRN IV Hypoglycemia 03/23/19 08:45 04/22/19 08:44 Glipizide (Glucotrol) 5 mg BIAC ORAL 03/21/19 16:30 04/20/19 16:29 03/31/19 16:51 Heparin Sodium (Porcine) (Heparin 5000 units/ml) 5,000 units EVERY 12 HOURS SUBQ 03/13/19 21:00 04/09/19 20:59 04/01/19 09:40 Insulin Aspart (NovoLOG) BEFORE MEALS AND HS SUBQ 03/23/19 11:30 04/22/19 11:29 04/01/19 11:56 Metronidazole (Flagyl) 500 mg Q8HR ORAL 03/23/19 14:00 04/03/19 13:59 04/01/19 14:07 Nateglinide (Starlix) 120 mg TIAC ORAL 03/23/19 11:30 04/22/19 11:29 04/01/19 11:57 Ondansetron HCl (Zofran) 4 mg Q6H PRN IVP Nausea & Vomiting 03/13/19 19:15 04/09/19 13:14 03/31/19 09:06 Pantoprazole (Protonix) 40 mg EVERY 12 HOURS ORAL 03/16/19 21:00 04/15/19 20:59 04/01/19 09:38 Jaentte Stallworth M.D. Apr 01, 2019 16:14
--- NOTE | 2019-04-01 17:04 | Internal Med Progress Note ---
Subjective Physician Name Marcos Silva Attending Physician Marcos Silva MD Current Medications Medications (Trade) Dose Ordered Sig/Shantelle Route PRN Reason Start Time Stop Time Status Last Admin Dose Admin Acetaminophen (Tylenol) 650 mg Q4H PRN ORAL Mild Pain/Temp > 100.5 03/19/19 16:00 04/18/19 15:59 03/31/19 21:22 Barium Sulfate (Readi-Cat 2) 450 ml PRN PRN ORAL Radiology Procedure 03/27/19 13:30 04/26/19 13:29 Cefepime HCl 1 gm/ Dextrose 55 ml @ 110 mls/hr DAILY IVPB 03/30/19 09:00 04/06/19 08:59 04/01/19 09:39 Dextrose (Dextrose 50%) 25 ml Q30M PRN IV Hypoglycemia 03/23/19 08:45 04/22/19 08:44 Dextrose (Dextrose 50%) 50 ml Q30M PRN IV Hypoglycemia 03/23/19 08:45 04/22/19 08:44 Glipizide (Glucotrol) 5 mg BIAC ORAL 03/21/19 16:30 04/20/19 16:29 04/01/19 16:15 Heparin Sodium (Porcine) (Heparin 5000 units/ml) 5,000 units EVERY 12 HOURS SUBQ 03/13/19 21:00 04/09/19 20:59 04/01/19 09:40 Insulin Aspart (NovoLOG) BEFORE MEALS AND HS SUBQ 03/23/19 11:30 04/22/19 11:29 04/01/19 16:22 Metronidazole (Flagyl) 500 mg Q8HR ORAL 03/23/19 14:00 04/03/19 13:59 04/01/19 14:07 Nateglinide (Starlix) 120 mg TIAC ORAL 03/23/19 11:30 04/22/19 11:29 04/01/19 16:15 Ondansetron HCl (Zofran) 4 mg Q6H PRN IVP Nausea & Vomiting 03/13/19 19:15 04/09/19 13:14 03/31/19 09:06 Pantoprazole (Protonix) 40 mg EVERY 12 HOURS ORAL 03/16/19 21:00 04/15/19 20:59 04/01/19 09:38 Allergies: Coded Allergies: No Known Allergies (Unverified , 03/10/19) Subjective awake, alert, responsive, WBC: 10.3 Objective Last Vital Signs Date Time Temp Pulse Resp B/P (MAP) Pulse Ox O2 Delivery O2 Flow Rate FiO2 04/01/19 12:00 97.8 91 18 116/70 (85) 04/01/19 09:00 Room Air 04/01/19 08:00 97 03/27/19 19:32 21 Laboratory Tests Test 04/01/19 05:10 White Blood Count 10.3 K/UL (4.8-10.8) Red Blood Count 3.49 M/UL (4.20-5.40) L Hemoglobin 9.6 G/DL (12.0-16.0) L Hematocrit 30.5 % (37.0-47.0) L Mean Corpuscular Volume 87 FL (80-99) Mean Corpuscular Hemoglobin 27.5 PG (27.0-31.0) Mean Corpuscular Hemoglobin Concent 31.5 G/DL (32.0-36.0) L Red Cell Distribution Width 17.0 % (11.6-14.8) H Platelet Count 325 K/UL (150-450) Mean Platelet Volume 6.5 FL (6.5-10.1) Neutrophils (%) (Auto) 68.2 % (45.0-75.0) Lymphocytes (%) (Auto) 19.6 % (20.0-45.0) L Monocytes (%) (Auto) 10.3 % (1.0-10.0) H Eosinophils (%) (Auto) 0.6 % (0.0-3.0) Basophils (%) (Auto) 1.3 % (0.0-2.0) Erythrocyte Sedimentation Rate 116 MM/HR (0-30) H Sodium Level 141 MMOL/L (136-145) Potassium Level 3.9 MMOL/L (3.5-5.1) Chloride Level 109 MMOL/L (98-107) H Carbon Dioxide Level 22 MMOL/L (21-32) Anion Gap 10 mmol/L (5-15) Blood Urea Nitrogen 12 mg/dL (7-18) Creatinine 0.5 MG/DL (0.55-1.30) L Estimat Glomerular Filtration Rate mL/min (>60) Glucose Level 107 MG/DL (74-106) H Calcium Level 9.1 MG/DL (8.5-10.1) C-Reactive Protein, Quantitative 3.0 mg/dL (0.00-0.90) H Intake and Output 03/31/19 04/01/19 19:00 07:00 Intake Total 295 ml 600 ml Balance 295 ml 600 ml Intake Oral 240 ml 600 ml IV Total 55 ml # Voids 4 3 Objective General: No acute distress, awake and alert HEENT: NCAT, sclera anicteric, PERRL, EOMI. Neck: Supple, no significant jugular venous distention, Lungs: clear to auscultation bilaterally, no Wheeze or Rales. Heart: Regular rate and rhythm, normal S1/S2, no murmur Abdomen: soft, not tender, Not distended. midline surgical incision intact.. Extremities: No Cyanosis , clubbing or edema. Neuro: A&O x 3, Able to move all extremities Skin: warm, no rash. Assessment/Plan Assessment/Plan ASSESSMENT: This is an 84-year-old female. 1. Perforated abdominal viscus S/P Exploratory laparotomy, Partial omentectomy, and Shane patch for repair of perforated pre-pyloric ulcer (03/10/2019). 2. Acute respiratory Failure. 3. Nausea with vomiting. 4. Diabetes type 2. 5. Hypertension. TREATMENT: 1. Perforated abdominal viscus. A General Surgery consultation has been obtained with Dr. Sheth. S/P Exploratory laparotomy, Partial omentectomy, and Shane patch for repair of perforated pre-pyloric ulcer (03/10/2019). 2. Diabetes type 2. NovoLog sliding scale has been instituted. 3. Hypertension. The patient is currently hypotensive. 4. Respiratory failure. The patient is currently intubated in the intensive care unit. A Pulmonary consultation has been obtained with Dr. Bibiana Pennington. Abx: total 6 weeks of IV ertapenem; end date 05/01/19; DC planning . Marcos Silva MD Apr 01, 2019 17:04
--- NOTE | 2019-04-01 17:22 | NUR ---
NURSE NOTES: Program Project Manager asked pt if she had a bm in Yoruba she replied that she did not remember , her stomach is slightly distended , ot states she feels constipated. Dr Gonzalez contacted gave orders for Milk of Magnesia 30 cc po q6 hours prn for constipation. Dr Stallworth called to inquire about the pt. Did not give orders for discharge. Program Project Manager asked if she is clearing the pt for discharge. Dr Bishop here seen pt earlier in shift nno Addendum: 04/01/19 at 1729 by Reina Edmond RN clarification Milk of magnesia 30 po qd prn constipation
[2019-04-01] MEDS ORDERED: Milk of Magnesia 30ml Ud ORAL PRN (17:30)
--- NOTE | 2019-04-01 19:13 | NUR ---
NURSE NOTES: Pt returned to bed , given call light. Bed is locked and low position. Alarm on . Provided with Milk Of Magnesia for constipation oncoming nurse made aware that pt verbalized that she had not had a BM in two days. Ate minimal for lunch and dinner. Hydrated well . Discharge planning pending. No orders at this time
--- NOTE | 2019-04-01 19:16 | NUR ---
HAND-OFF: Report given to Charissa SAMUELS.
--- NOTE | 2019-04-01 19:16 | NUR ---
NURSE NOTES:Patient received from Reina Adams Patient a/a/ox4 Cameroonian speaking Patient denies any pain at this time . no s/s of distress noted . LFA G #22 H/L Patent and intact .Surgical site abdominal dressin C/D/I . Call light within reach . Bed in low position at all times . will continue to monitor . Bed alarm on. Addendum: 04/02/19 at 0458 by NAOMI JO LVN Patient ambulated with walker .Safety /Fall precautions . Patient son at bedside. Patient instructed to uses Call light when need. patient and family verbalized understanding .
[2019-04-01 20:00] VITALS: BP 120/73
[2019-04-02] VITALS: BP 136/80
[2019-04-02 04:00] VITALS: BP 128/67
[2019-04-02] MEDS: metroNIDAZOLE 500mg tab ORAL SCH ×3 (05:41→22:15)
[2019-04-02] MEDS: NovoLOG Insulin Flexpen SUBQ SCH ×4 (05:45→20:43)
[2019-04-02] MEDS: GlipiZIDE 5mg tab ORAL SCH ×2 (07:01→17:07)
--- NOTE | 2019-04-02 07:28 | NUR ---
HAND-OFF: Report given to Maya Adams
--- NOTE | 2019-04-02 07:42 | NUR ---
NURSE NOTES: Nurse report given by SARAI Carrington. Patient's awake, sitting in the chair at bedside eating breakfast, denies pain, no s/s of distress or SOB, Botswanan speaking only. Surgical site is intact and clean, IV is patent and flushed well. Bed at lowest position, call light within reach, break engaged, side rails x 2. Will continue to monitor.
[2019-04-02 08:00] VITALS: BP 127/69
[2019-04-02] MEDS: Cefepime HCl 1 GM in D5W 55 ML IVPB SCH (08:22)
[2019-04-02] MEDS: Heparin 5000 units/ml inj SUBQ SCH ×2 (08:24→20:37)
[2019-04-02 12:00] VITALS: BP 122/72
--- NOTE | 2019-04-02 12:53 | Infectious Diseases Prog Note ---
Assessment/Plan Assessment/Plan Probable Sepsis- 2ry to likely intraabdominal abscess- ?source (post-op complication vs supervisor fur dressing or sigmoid origin) -03/29 Pelvic/transvaginal US: Partial septate uterus with distended fluid- filled endometrium, also demonstrated on recent CT scan. Right adnexal region irregular fluid collection, corresponding to findings reported on recent CT scan. This is contiguous with an immediately adjacent segment of bowel.This likewise corresponds to findings on recent CT. Note that the fluid collection and extent are better delineated on the prior study. Nonvisualized left ovary -CT abd/p: Markedly thickened and fluid-filled endometrium. 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 Complex multilobulated fluid collection with areas of enhancing soft tissue in the right adnexal region. This measures 5.5 x 7 x 3.9 cm. There is also a second tiny collection adjacent to the distal rectum. One possible etiology is, given the above finding, a tubo-ovarian abscess, related to retrograde propagation of endometritis. A second possibility is that this represents acute diverticulitis with peridiverticular abscess, given the close relationship with the distal sigmoid colon. A third possibility is this represents an abscess related to infected pelvic fluid from the prior gastric perforation, as the previous exam did demonstrate a small amount of free fluid in the pelvis. Finally, given the presence of the appendix (which isprominent in caliber) at the edge of the collection, this could represent perforated acute distal appendicitis. However, this is deemed less likely. Evidence of interim repair of previously demonstrated perforated gastric ulcer. No evidence of contrast leakage. No abnormal fluid collection at the operative site. Colonic diverticulosis. Slight rim enhancement of the gallbladder. Slight pericholecystic fluid. However, the gallbladder is nondistended, so doubt significance of this. Bilateral basilar pulmonary parenchymal groundglass opacity, likely on the basis of mild pulmonary edema Fever, SP Leukocytosis, recurrent, resolved-2 ry to above -9/4 Bcx Neg -03/22 CXR: Cardiomegaly.Bilateral basilar atelectasis or scarring. Decreased left pleural fluid u/a neg -9/2 BCx Neg -03/20 CXR: Subsegmental atelectasis versus infiltrate in the left lung base. -03/19 u/a neg Cdiff neg -v/ duplex no DVT Perforated pre-pyloric gastric ulcer -03/15 s/p UGI series: Negative for postoperative leak -03/10 SP 03/10 SP Exploratory Laparotomy, Abdominal washout. Partial omentectomy. Shane patch for repair of perforated pre-pyloric ulcer. -03/10 CT abd/p: Free intraperitoneal gas. Etiology not completely certain, but gas within and extending from the anterior gastric antral wall is suspicious for a perforated gastric ulcer. Perforated descending colon diverticulitis also possible but deemed much less likely. Free intraperitoneal fluid, presumably related to the above. Fatty liver. Basilar pulmonary parenchymal groundglass opacities. This could indicate pulmonary edema, among other possibilities. Subcentimeter low-attenuation renal lesions, too small to characterize, most likely benign simple cyst. No further follow-up necessary. 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 Acute encephalopathy -CT head: Chronic and age-related changes. Negative for acute intracranial bleed or mass effect VDRF, post-op; extubated 03/12 DARRON, SP Dm2 HTN Plan: -Cont empiric Cefepime #12 and PO Flagyl #11 for intraabdominal abscess -Discussed with Dr Sheth. It is unclear origin of abscess if complication from prior gastric perforation vs gynecological origin vs sigmoid related. Patient no longer afebrile and it is felt she is high risk for surgical re-exploration. Will recommend a total 6 weeks of IV ertapenem; end date 05/01/19; weekly CBC, CMP -/ SP Fluconazole #10 -03/15 SP Zosyn #6 -03/10 SP IV Vancomycin #1, Ancef x1 -f/u cx -Monitor CBC/CMP, temperatures -Sx f/u -wound care per surgical team -aspiration precautions Subjective Allergies: Coded Allergies: No Known Allergies (Unverified , 03/10/19) Subjective afebrile leukocytosis stable Objective Vital Signs Last 24 Hour Vital Signs Date Time Temp Pulse Resp B/P (MAP) Pulse Ox O2 Delivery O2 Flow Rate FiO2 04/02/19 12:00 98.7 94 16 122/72 (89) 99 04/02/19 09:00 Room Air 04/02/19 08:00 97.7 60 19 127/69 (88) 98 04/02/19 04:00 97.0 92 18 128/67 (87) 97 04/02/19 00:00 98.6 94 18 136/80 (98) 97 04/01/19 21:00 Room Air 04/01/19 20:00 98.4 88 18 120/73 (89) 98 04/01/19 16:00 98.6 98 18 120/64 (82) Height (Feet): 5 Height (Inches): 0.00 Weight (Pounds): 112 Objective General appearance: alert, cooperative, no distress, appears stated age Head: Normocephalic, without obvious abnormality, atraumatic Eyes: conjunctivae/corneas clear. PERRL, EOM's intact. Fundi benign Throat: Lips, mucosa, and tongue normal. Teeth and gums normal Neck: supple, symmetrical, trachea midline, no adenopathy, thyroid: not enlarged, symmetric, no tenderness/mass/nodules, no carotid bruit and no JVD Lungs: clear to auscultation bilaterally Heart: regular rate and rhythm, S1, S2 normal, no murmur, click, rub or gallop Abdomen: soft, peritonitis with tender. Bowel sounds normal. No masses, no organomegaly Extremities: extremities normal, atraumatic, no cyanosis or edema Pulses: 2+ and symmetric Skin: Skin color, texture, turgor normal. No rashes or lesions Neurologic: Grossly normal Current Medications Medications (Trade) Dose Ordered Sig/Shantelle Route PRN Reason Start Time Stop Time Status Last Admin Dose Admin Acetaminophen (Tylenol) 650 mg Q4H PRN ORAL Mild Pain/Temp > 100.5 03/19/19 16:00 04/18/19 15:59 03/31/19 21:22 Barium Sulfate (Readi-Cat 2) 450 ml PRN PRN ORAL Radiology Procedure 03/27/19 13:30 04/26/19 13:29 Cefepime HCl 1 gm/ Dextrose 55 ml @ 110 mls/hr DAILY IVPB 03/30/19 09:00 04/06/19 08:59 04/02/19 08:22 Dextrose (Dextrose 50%) 25 ml Q30M PRN IV Hypoglycemia 03/23/19 08:45 04/22/19 08:44 Dextrose (Dextrose 50%) 50 ml Q30M PRN IV Hypoglycemia 03/23/19 08:45 04/22/19 08:44 Glipizide (Glucotrol) 5 mg BIAC ORAL 03/21/19 16:30 04/20/19 16:29 04/02/19 07:01 Heparin Sodium (Porcine) (Heparin 5000 units/ml) 5,000 units EVERY 12 HOURS SUBQ 03/13/19 21:00 04/09/19 20:59 04/02/19 08:24 Insulin Aspart (NovoLOG) BEFORE MEALS AND HS SUBQ 03/23/19 11:30 04/22/19 11:29 04/02/19 11:52 Magnesium Hydroxide (Mom) 30 ml DAILYPRN PRN ORAL Constipation 04/01/19 17:30 05/01/19 17:29 04/01/19 17:42 Metronidazole (Flagyl) 500 mg Q8HR ORAL 03/23/19 14:00 04/03/19 13:59 04/02/19 05:41 Nateglinide (Starlix) 120 mg TIAC ORAL 03/23/19 11:30 04/22/19 11:29 04/02/19 11:51 Ondansetron HCl (Zofran) 4 mg Q6H PRN IVP Nausea & Vomiting 03/13/19 19:15 04/09/19 13:14 03/31/19 09:06 Pantoprazole (Protonix) 40 mg EVERY 12 HOURS ORAL 03/16/19 21:00 04/15/19 20:59 04/02/19 08:22 Janette Stallworth M.D. Apr 02, 2019 12:53
--- NOTE | 2019-04-02 13:29 | NUR ---
HAND-OFF: Report given to SARAI Arreola. Plan of care endorsed. .
--- NOTE | 2019-04-02 13:30 | NUR ---
NURSE NOTES:report fr. boyer re:continuity of care,pt,sitting in chair pleasant and conversant ,family at bedside.call light with in reach.
--- NOTE | 2019-04-02 15:00 | NUR ---
NURSE NOTES:assisted back to bed.no c/o pain/discomfort.
--- NOTE | 2019-04-02 15:30 | Internal Med Progress Note ---
Subjective Date of Service: Apr 02, 2019 Physician Name Zen Paige Attending Physician Marcos Silva MD Current Medications Medications (Trade) Dose Ordered Sig/Shantelle Route PRN Reason Start Time Stop Time Status Last Admin Dose Admin Acetaminophen (Tylenol) 650 mg Q4H PRN ORAL Mild Pain/Temp > 100.5 03/19/19 16:00 04/18/19 15:59 03/31/19 21:22 Barium Sulfate (Readi-Cat 2) 450 ml PRN PRN ORAL Radiology Procedure 03/27/19 13:30 04/26/19 13:29 Cefepime HCl 1 gm/ Dextrose 55 ml @ 110 mls/hr DAILY IVPB 03/30/19 09:00 04/06/19 08:59 04/02/19 08:22 Dextrose (Dextrose 50%) 25 ml Q30M PRN IV Hypoglycemia 03/23/19 08:45 04/22/19 08:44 Dextrose (Dextrose 50%) 50 ml Q30M PRN IV Hypoglycemia 03/23/19 08:45 04/22/19 08:44 Glipizide (Glucotrol) 5 mg BIAC ORAL 03/21/19 16:30 04/20/19 16:29 04/02/19 07:01 Heparin Sodium (Porcine) (Heparin 5000 units/ml) 5,000 units EVERY 12 HOURS SUBQ 03/13/19 21:00 04/09/19 20:59 04/02/19 08:24 Insulin Aspart (NovoLOG) BEFORE MEALS AND HS SUBQ 03/23/19 11:30 04/22/19 11:29 04/02/19 11:52 Magnesium Hydroxide (Mom) 30 ml DAILYPRN PRN ORAL Constipation 04/01/19 17:30 05/01/19 17:29 04/01/19 17:42 Metronidazole (Flagyl) 500 mg Q8HR ORAL 03/23/19 14:00 04/03/19 13:59 04/02/19 05:41 Nateglinide (Starlix) 120 mg TIAC ORAL 03/23/19 11:30 04/22/19 11:29 04/02/19 11:51 Ondansetron HCl (Zofran) 4 mg Q6H PRN IVP Nausea & Vomiting 03/13/19 19:15 04/09/19 13:14 03/31/19 09:06 Pantoprazole (Protonix) 40 mg EVERY 12 HOURS ORAL 03/16/19 21:00 04/15/19 20:59 04/02/19 08:22 Allergies: Coded Allergies: No Known Allergies (Unverified , 03/10/19) ROS Limited/Unobtainable: No Constitutional: Reports: no symptoms HEENT: Reports: no symptoms Cardiovascular: Reports: no symptoms Respiratory: Reports: no symptoms Gastrointestinal/Abdominal: Reports: no symptoms Genitourinary: Reports: no symptoms Neurologic/Psychiatric: Reports: no symptoms Subjective 84 YO F admitted with abdominal pain. S/P exploratory laparotomy 03/10/19. Now intra-abdominal abscess. Cover for Int Med-Dr Silva. Objective Last Vital Signs Date Time Temp Pulse Resp B/P (MAP) Pulse Ox O2 Delivery O2 Flow Rate FiO2 04/02/19 12:00 98.7 94 16 122/72 (89) 99 04/02/19 09:00 Room Air 03/27/19 19:32 21 Intake and Output 04/01/19 04/02/19 18:59 06:59 Intake Total 240 ml 440 ml Output Total 3 ml Balance 240 ml 437 ml Intake Oral 240 ml 440 ml Output Urine Total 3 ml # Voids 2 2 Objective PHYSICAL EXAMINATION: GENERAL: The patient is a well developed, well nourished female who is intubated and sedated. HEENT: Eyes, pupils equal and responsive to light and accommodation. Extraocular movements are intact. NECK: Supple without lymphadenopathy. CHEST: Nasc canula; Few diffuse wheezes bilaterally. Otherwise, without wheezes or rales. CARDIOVASCULAR: Regular rhythm rate. S1-S2 are normal without murmurs, rubs, or gallops. ABDOMEN: NGT; Soft, nontender with decreased bowel sounds. No evidence of hepatosplenomegaly. no rebound or guarding noted. EXTREMITIES: Negative for clubbing, cyanosis, edema. RECTAL/GENITAL: Not performed. NEUROLOGIC: Cranial nerves II through XII are grossly intact without focal deficits. Assessment/Plan Assessment/Plan ASSESSMENT: This is an 84-year-old female. 1. Perforated gastric ulcer 2. Abdominal pain. 3. Nausea with vomiting. 4. Diabetes type 2. 5. Hypertension. 6. Post Op fever-resolved 7. Leukocytosis 8. Intraabdominal abscess TREATMENT: 1. Perforated gastric ulcer. A General Surgery consultation has been obtained with Dr. Sheth. S/P exploratory laparotomy 03/10/19=perforated Pre pyloric ulcer. Tolerating regular diet; NGT discontinued per surgery 2. Diabetes type 2. NovoLog sliding scale has been instituted. 3. Hypertension. The patient is currently hypotensive. 4. Respiratory failure. S/P extubation 03/12/19. A Pulmonary consultation has been obtained with Dr. Bibiana Pennington. 5. Med/surg 6. ABX=Ertapenem for 6 weeks-end date 05/01/19 per ID 7. Surgical intervention on hold for intraabdominal abscess-see surgery note. Will require 6 weeks of ertapenem per ID Zen Paige MD Apr 02, 2019 15:30
[2019-04-02 16:00] VITALS: BP 139/86
--- NOTE | 2019-04-02 16:15 | NUR ---
CASE MANAGEMENT: REVIEW 04/02/2019 SI:PERFORATED VISCUS. T 98.7 HR 94 RR 16 B/P 122/72 SATS 99% ON RA NO LABS TODAY IS: ZOSYN IV Q8H PROTONIX IV BID FLAGYL IV Q8H CEFEPIME IV QD MED/SURG DCP: PATIENT TO BE DISCHARGED TO HOME ONCE MEDICALLY CLEARED.
--- NOTE | 2019-04-02 18:00 | NUR ---
NURSE NOTES:ambulated in hallway using walker with staff,tolerated activity.
--- NOTE | 2019-04-02 19:00 | NUR ---
NURSE NOTES: Receive a report from SARAI Arreola. Round is done. Pt is sitting in a chair and no noted acute distress. Breathing is even and non labored. Op site is done with steri-tapes, clear. Pain is mild but denies to take pain medication. Provide fall precautions. Leave call light within reach. Bed is lowest. Will continue to monitor.
--- NOTE | 2019-04-02 19:05 | NUR ---
HAND-OFF: Report given to REPORT GIVEN TO HUNTER RN.BEDSIDE ROUNDS DONE PT. STABLE SITTING IN CHAIR CALL LIGHT WITH IN REACH..
[2019-04-02 20:00] VITALS: BP 128/75
[2019-04-03] VITALS: BP 135/63
[2019-04-03 04:45] VITALS: BP 130/69
[2019-04-03 06:01] LABS: BASOPHILS % (AUTO) 1.9 % (0.0-2.0); EOSINOPHILS % (AUTO) 0.7 % (0.0-3.0); HEMATOCRIT 29.9 % (37.0-47.0); HEMOGLOBIN 9.4 G/DL (12.0-16.0); LYMPHOCYTES % (AUTO) 23.2 % (20.0-45.0); MEAN CORPUSCULAR VOLUME 87 FL (80-99); MONOCYTES % (AUTO) 10.7 % (1.0-10.0); NEUTROPHILS % (AUTO) 63.5 % (45.0-75.0); PLATELET COUNT 300 K/UL (150-450); RED BLOOD COUNT 3.43 M/UL (4.20-5.40); RED CELL DISTRIBUTION WIDTH 16.6 % (11.6-14.8); WHITE BLOOD COUNT 8.4 K/UL (4.8-10.8)
[2019-04-03] MEDS: metroNIDAZOLE 500mg tab ORAL SCH ×3 (06:13→21:25)
[2019-04-03] MEDS: GlipiZIDE 5mg tab ORAL SCH ×2 (06:14→16:52)
[2019-04-03] MEDS: NovoLOG Insulin Flexpen SUBQ SCH ×4 (06:16→21:00)
[2019-04-03 06:30] LABS: ALANINE AMINOTRANSFERASE 10 U/L (12-78); ALBUMIN 2.1 G/DL (3.4-5.0); ALBUMIN/GLOBULIN RATIO 0.6 (1.0-2.7); ALKALINE PHOSPHATASE 281 U/L (46-116); ANION GAP 10 mmol/L (5-15); ASPARTATE AMINO TRANSFERASE 28 U/L (15-37); BILIRUBIN,TOTAL 0.4 MG/DL (0.2-1.0); BLOOD UREA NITROGEN 13 mg/dL (7-18); CALCIUM 8.8 MG/DL (8.5-10.1); CARBON DIOXIDE 22 MMOL/L (21-32); CHLORIDE 109 MMOL/L (98-107); CREATININE 0.6 MG/DL (0.55-1.30); POTASSIUM 3.8 MMOL/L (3.5-5.1); SODIUM 141 MMOL/L (136-145)
[2019-04-03 08:00] VITALS: BP 125/80
--- NOTE | 2019-04-03 08:00 | NUR ---
HAND-OFF: Report given to SARAI Veloz. Round is done. Pt is having breakfast without acute distress.
--- NOTE | 2019-04-03 08:27 | NUR ---
NURSE NOTES: Patient alert x4, sitting at the bed side chair and eating breakfast; Czech speaking; on room air, no sing of distress and shortness of breath; no sing of chest pain; IV LFA 22G flushes well; walker at the bed side and within reach; family members at the bed side; bed at lowest position, breaks engaged, side rails up x2; call light within reach; will keep monitoring.
[2019-04-03] MEDS: Cefepime HCl 1 GM in D5W 55 ML IVPB SCH (09:32)
[2019-04-03] MEDS: Heparin 5000 units/ml inj SUBQ SCH ×2 (09:33→21:32)
[2019-04-03 12:00] VITALS: BP 136/74
--- NOTE | 2019-04-03 14:50 | Internal Med Progress Note ---
Subjective Date of Service: Apr 03, 2019 Physician Name Zen Paige Attending Physician Marcos Silva MD Current Medications Medications (Trade) Dose Ordered Sig/Shantelle Route PRN Reason Start Time Stop Time Status Last Admin Dose Admin Acetaminophen (Tylenol) 650 mg Q4H PRN ORAL Mild Pain/Temp > 100.5 03/19/19 16:00 04/18/19 15:59 03/31/19 21:22 Barium Sulfate (Readi-Cat 2) 450 ml PRN PRN ORAL Radiology Procedure 03/27/19 13:30 04/26/19 13:29 Cefepime HCl 1 gm/ Dextrose 55 ml @ 110 mls/hr DAILY IVPB 03/30/19 09:00 04/06/19 08:59 04/03/19 09:32 Dextrose (Dextrose 50%) 25 ml Q30M PRN IV Hypoglycemia 03/23/19 08:45 04/22/19 08:44 Dextrose (Dextrose 50%) 50 ml Q30M PRN IV Hypoglycemia 03/23/19 08:45 04/22/19 08:44 Glipizide (Glucotrol) 5 mg BIAC ORAL 03/21/19 16:30 04/20/19 16:29 04/03/19 06:14 Heparin Sodium (Porcine) (Heparin 5000 units/ml) 5,000 units EVERY 12 HOURS SUBQ 03/13/19 21:00 04/09/19 20:59 04/03/19 09:33 Insulin Aspart (NovoLOG) BEFORE MEALS AND HS SUBQ 03/23/19 11:30 04/22/19 11:29 04/03/19 12:12 Magnesium Hydroxide (Mom) 30 ml DAILYPRN PRN ORAL Constipation 04/01/19 17:30 05/01/19 17:29 04/01/19 17:42 Metronidazole (Flagyl) 500 mg Q8HR ORAL 03/23/19 14:00 04/05/19 13:59 04/03/19 14:34 Nateglinide (Starlix) 120 mg TIAC ORAL 03/23/19 11:30 04/22/19 11:29 04/03/19 12:11 Ondansetron HCl (Zofran) 4 mg Q6H PRN IVP Nausea & Vomiting 03/13/19 19:15 04/09/19 13:14 03/31/19 09:06 Pantoprazole (Protonix) 40 mg EVERY 12 HOURS ORAL 03/16/19 21:00 04/15/19 20:59 04/03/19 09:32 Allergies: Coded Allergies: No Known Allergies (Unverified , 03/10/19) ROS Limited/Unobtainable: No Constitutional: Reports: no symptoms HEENT: Reports: no symptoms Cardiovascular: Reports: no symptoms Respiratory: Reports: no symptoms Gastrointestinal/Abdominal: Reports: no symptoms Genitourinary: Reports: no symptoms Neurologic/Psychiatric: Reports: no symptoms Subjective 84 YO F admitted with abdominal pain. S/P exploratory laparotomy 03/10/19. Now intra-abdominal abscess. Cover for Int [facility]-Dr Silva. Objective Last Vital Signs Date Time Temp Pulse Resp B/P (MAP) Pulse Ox O2 Delivery O2 Flow Rate FiO2 04/03/19 12:00 98.2 94 20 136/74 (94) 95 04/03/19 09:00 Room Air 03/27/19 19:32 21 Laboratory Tests Test 04/03/19 05:10 White Blood Count 8.4 K/UL (4.8-10.8) Red Blood Count 3.43 M/UL (4.20-5.40) L Hemoglobin 9.4 G/DL (12.0-16.0) L Hematocrit 29.9 % (37.0-47.0) L Mean Corpuscular Volume 87 FL (80-99) Mean Corpuscular Hemoglobin 27.5 PG (27.0-31.0) Mean Corpuscular Hemoglobin Concent 31.6 G/DL (32.0-36.0) L Red Cell Distribution Width 16.6 % (11.6-14.8) H Platelet Count 300 K/UL (150-450) Mean Platelet Volume 6.5 FL (6.5-10.1) Neutrophils (%) (Auto) 63.5 % (45.0-75.0) Lymphocytes (%) (Auto) 23.2 % (20.0-45.0) Monocytes (%) (Auto) 10.7 % (1.0-10.0) H Eosinophils (%) (Auto) 0.7 % (0.0-3.0) Basophils (%) (Auto) 1.9 % (0.0-2.0) Sodium Level 141 MMOL/L (136-145) Potassium Level 3.8 MMOL/L (3.5-5.1) Chloride Level 109 MMOL/L (98-107) H Carbon Dioxide Level 22 MMOL/L (21-32) Anion Gap 10 mmol/L (5-15) Blood Urea Nitrogen 13 mg/dL (7-18) Creatinine 0.6 MG/DL (0.55-1.30) Estimat Glomerular Filtration Rate mL/min (>60) Glucose Level 96 MG/DL (74-106) Calcium Level 8.8 MG/DL (8.5-10.1) Total Bilirubin 0.4 MG/DL (0.2-1.0) Aspartate Amino Transf (AST/SGOT) 28 U/L (15-37) Alanine Aminotransferase (ALT/SGPT) 10 U/L (12-78) L Alkaline Phosphatase 281 U/L (46-116) H Total Protein 5.7 G/DL (6.4-8.2) L Albumin 2.1 G/DL (3.4-5.0) L Globulin 3.6 g/dL Albumin/Globulin Ratio 0.6 (1.0-2.7) L Intake and Output 04/02/19 04/03/19 18:59 06:59 Intake Total 388 ml 100 ml Balance 388 ml 100 ml Intake Oral 388 ml 100 ml # Voids 1 3 # Bowel Movements 1 Objective PHYSICAL EXAMINATION: GENERAL: The patient is a well developed, well nourished female who is intubated and sedated. HEENT: Eyes, pupils equal and responsive to light and accommodation. Extraocular movements are intact. NECK: Supple without lymphadenopathy. CHEST: Nasc canula; Few diffuse wheezes bilaterally. Otherwise, without wheezes or rales. CARDIOVASCULAR: Regular rhythm rate. S1-S2 are normal without murmurs, rubs, or gallops. ABDOMEN: NGT; Soft, nontender with decreased bowel sounds. No evidence of hepatosplenomegaly. no rebound or guarding noted. EXTREMITIES: Negative for clubbing, cyanosis, edema. RECTAL/GENITAL: Not performed. NEUROLOGIC: Cranial nerves II through XII are grossly intact without focal deficits. Assessment/Plan Assessment/Plan ASSESSMENT: This is an 84-year-old female. 1. Perforated gastric ulcer 2. Abdominal pain. 3. Nausea with vomiting. 4. Diabetes type 2. 5. Hypertension. 6. Post Op fever-resolved 7. Leukocytosis 8. Intraabdominal abscess TREATMENT: 1. Perforated gastric ulcer. A General Surgery consultation has been obtained with Dr. Sheth. S/P exploratory laparotomy 03/10/19=perforated Pre pyloric ulcer. Tolerating regular diet; NGT discontinued per surgery 2. Diabetes type 2. NovoLog sliding scale has been instituted. 3. Hypertension. The patient is currently hypotensive. 4. Respiratory failure. S/P extubation 03/12/19. A Pulmonary consultation has been obtained with Dr. Bibiana Pennington. 5. Med/surg 6. ABX=Ertapenem for 6 weeks-end date 05/01/19 per ID 7. Surgical intervention on hold for intraabdominal abscess-see surgery note. Will require 6 weeks of ertapenem per ID 8. WBD now normal; Discharge planning Zen Paige MD Apr 03, 2019 14:50
[2019-04-03 16:00] VITALS: BP 123/72
--- NOTE | 2019-04-03 19:43 | NUR ---
HAND-OFF: Report given to SARAI Morgan.
--- NOTE | 2019-04-03 19:44 | NUR ---
NURSE NOTES: Report taken from SARAI Veloz. Patient is awake and in bed, family at bedside. A&Ox4. No signs of distress on room air. No complaints of pain or discomfort except when she coughs. IV site LFA 22g, c/d/i and patent, no fluids running. Surgical site with steri strips and open to air, no bleeding or drainage. Skin is intact. She is able to ambulate, instructed patient to call RN for assistance. Bed in lowest position, call light within reach.
[2019-04-03 20:00] VITALS: BP 121/73
[2019-04-04] VITALS (7 sets, daily range): BP systolic 116–140; BP diastolic 65–77
[2019-04-04] MEDS: GlipiZIDE 5mg tab ORAL SCH ×2 (06:12→17:38)
[2019-04-04] MEDS: metroNIDAZOLE 500mg tab ORAL SCH ×3 (06:12→21:15)
[2019-04-04] MEDS: NovoLOG Insulin Flexpen SUBQ SCH ×4 (06:18→21:19)
--- NOTE | 2019-04-04 07:16 | NUR ---
HAND-OFF: Report given to SARAI Payton. Patient is asleep. VS stable, order for case consult today.
--- NOTE | 2019-04-04 08:00 | NUR ---
NURSE NOTES: Received patient from SARAI Morgan patient awake alert with out no distress family at bed side seating on the chair and eating breakfast, call light with in reach, none skid socks on, will continue to monitor.
[2019-04-04] MEDS: Cefepime HCl 1 GM in D5W 55 ML IVPB SCH (08:59)
[2019-04-04] MEDS: Heparin 5000 units/ml inj SUBQ SCH ×2 (09:00→21:19)
--- NOTE | 2019-04-04 12:15 | Infectious Diseases Prog Note ---
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 Right adnexal region irregular fluid collection, corresponding to findings reported on recent CT scan. This is contiguous with an immediately adjacent segment of bowel.This likewise corresponds to findings on recent CT. Note that the fluid collection and extent are better delineated on the prior study. Nonvisualized left ovary -CT abd/p: Markedly thickened and fluid-filled endometrium. 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 Complex multilobulated fluid collection with areas of enhancing soft tissue in the right adnexal region. This measures 5.5 x 7 x 3.9 cm. There is also a second tiny collection adjacent to the distal rectum. One possible etiology is, given the above finding, a tubo-ovarian abscess, related to retrograde propagation of endometritis. A second possibility is that this represents acute diverticulitis with peridiverticular abscess, given the close relationship with the distal sigmoid colon. A third possibility is this represents an abscess related to infected pelvic fluid from the prior gastric perforation, as the previous exam did demonstrate a small amount of free fluid in the pelvis. Finally, given the presence of the appendix (which isprominent in caliber) at the edge of the collection, this could represent perforated acute distal appendicitis. However, this is deemed less likely. Evidence of interim repair of previously demonstrated perforated gastric ulcer. No evidence of contrast leakage. No abnormal fluid collection at the operative site. Colonic diverticulosis. Slight rim enhancement of the gallbladder. Slight pericholecystic fluid. However, the gallbladder is nondistended, so doubt significance of this. Bilateral basilar pulmonary parenchymal groundglass opacity, likely on the basis of mild pulmonary edema Fever, SP Leukocytosis, recurrent, resolved-2 ry to above -9/4 Bcx Neg -03/22 CXR: Cardiomegaly.Bilateral basilar atelectasis or scarring. Decreased left pleural fluid u/a neg -9/2 BCx Neg -03/20 CXR: Subsegmental atelectasis versus infiltrate in the left lung base. -03/19 u/a neg Cdiff neg -v/ duplex no DVT Perforated pre-pyloric gastric ulcer -03/15 s/p UGI series: Negative for postoperative leak -03/10 SP 03/10 SP Exploratory Laparotomy, Abdominal washout. Partial omentectomy. Shane patch for repair of perforated pre-pyloric ulcer. -03/10 CT abd/p: Free intraperitoneal gas. Etiology not completely certain, but gas within and extending from the anterior gastric antral wall is suspicious for a perforated gastric ulcer. Perforated descending colon diverticulitis also possible but deemed much less likely. Free intraperitoneal fluid, presumably related to the above. Fatty liver. Basilar pulmonary parenchymal groundglass opacities. This could indicate pulmonary edema, among other possibilities. Subcentimeter low-attenuation renal lesions, too small to characterize, most likely benign simple cyst. No further follow-up necessary. 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 Acute encephalopathy -CT head: Chronic and age-related changes. Negative for acute intracranial bleed or mass effect VDRF, post-op; extubated 03/12 DARRON, SP Dm2 HTN Plan: -Cont empiric Cefepime #14 and PO Flagyl #13 for intraabdominal abscess -Discussed with Dr Sheth. It is unclear origin of abscess if complication from prior gastric perforation vs gynecological origin vs sigmoid related. Patient no longer afebrile and it is felt she is high risk for surgical re-exploration. Will recommend a total 6 weeks of IV ertapenem; end date 05/01/19; weekly CBC, CMP -03/22 SP Fluconazole #10 -03/15 SP Zosyn #6 -03/10 SP IV Vancomycin #1, Ancef x1 -f/u cx -Monitor CBC/CMP, temperatures -Sx f/u -wound care per surgical team -aspiration precautions Subjective Allergies: Coded Allergies: No Known Allergies (Unverified , 03/10/19) Subjective Afebrile Leukcoytosis resolved Sitting up eating Objective Vital Signs Last 24 Hour Vital Signs Date Time Temp Pulse Resp B/P (MAP) Pulse Ox O2 Delivery O2 Flow Rate FiO2 04/04/19 09:00 Room Air 04/04/19 08:32 98.5 90 17 140/65 (90) 98 04/04/19 04:00 98.8 91 17 129/73 (91) 98 04/04/19 00:00 98.6 97 17 125/70 (88) 98 04/03/19 21:00 Room Air 04/03/19 20:00 98.8 93 16 121/73 (89) 97 04/03/19 16:00 97.7 94 17 123/72 (89) 97 Height (Feet): 5 Height (Inches): 0.00 Weight (Pounds): 112 Objective General: NAD Head: NCAT, MMM, EOMI Lungs: clear to auscultation bilaterally, No W Heart: regular rate and rhythm, S1, S2 Abdomen: soft, NT, ND Bowel sounds normal.s Current Medications Medications (Trade) Dose Ordered Sig/Shantelle Route PRN Reason Start Time Stop Time Status Last Admin Dose Admin Acetaminophen (Tylenol) 650 mg Q4H PRN ORAL Mild Pain/Temp > 100.5 03/19/19 16:00 04/18/19 15:59 03/31/19 21:22 Barium Sulfate (Readi-Cat 2) 450 ml PRN PRN ORAL Radiology Procedure 03/27/19 13:30 04/26/19 13:29 Cefepime HCl 1 gm/ Dextrose 55 ml @ 110 mls/hr DAILY IVPB 03/30/19 09:00 04/06/19 08:59 04/04/19 08:59 Dextrose (Dextrose 50%) 25 ml Q30M PRN IV Hypoglycemia 03/23/19 08:45 04/22/19 08:44 Dextrose (Dextrose 50%) 50 ml Q30M PRN IV Hypoglycemia 03/23/19 08:45 04/22/19 08:44 Glipizide (Glucotrol) 5 mg BIAC ORAL 03/21/19 16:30 04/20/19 16:29 04/04/19 06:12 Heparin Sodium (Porcine) (Heparin 5000 units/ml) 5,000 units EVERY 12 HOURS SUBQ 03/13/19 21:00 04/09/19 20:59 04/04/19 09:00 Insulin Aspart (NovoLOG) BEFORE MEALS AND HS SUBQ 03/23/19 11:30 04/22/19 11:29 04/03/19 16:53 Magnesium Hydroxide (Mom) 30 ml DAILYPRN PRN ORAL Constipation 04/01/19 17:30 05/01/19 17:29 04/01/19 17:42 Metronidazole (Flagyl) 500 mg Q8HR ORAL 03/23/19 14:00 04/05/19 13:59 04/04/19 06:12 Nateglinide (Starlix) 120 mg TIAC ORAL 03/23/19 11:30 04/22/19 11:29 04/04/19 06:12 Ondansetron HCl (Zofran) 4 mg Q6H PRN IVP Nausea & Vomiting 03/13/19 19:15 04/09/19 13:14 03/31/19 09:06 Pantoprazole (Protonix) 40 mg EVERY 12 HOURS ORAL 03/16/19 21:00 04/15/19 20:59 04/04/19 09:00 Andrea Quiroz MD Apr 04, 2019 12:15
--- NOTE | 2019-04-04 13:23 | Nephrology Progress Note ---
Assessment/Plan Problem List: (1) Perforated abdominal viscus (2) Hypokalemia (3) Hypomagnesemia (4) Diabetes mellitus (5) Anemia Assessment WBC rising Post lap on 03/10 Low K Low Phos Low Mag Anemia DM h/o HTN Plan add oral hypoglycemics for high BS high K likely hemolysis resolved DC IV mag supplement change all to orals Mag and K and Phos IV as needed Anemia claudio Keep BP and BS in check per orders DC planning Subjective ROS Limited/Unobtainable: No Constitutional: Reports: malaise Objective Objective Last 24 Hour Vital Signs Date Time Temp Pulse Resp B/P (MAP) Pulse Ox O2 Delivery O2 Flow Rate FiO2 04/04/19 09:00 Room Air 04/04/19 08:32 98.5 90 17 140/65 (90) 98 04/04/19 04:00 98.8 91 17 129/73 (91) 98 04/04/19 00:00 98.6 97 17 125/70 (88) 98 04/03/19 21:00 Room Air 04/03/19 20:00 98.8 93 16 121/73 (89) 97 04/03/19 16:00 97.7 94 17 123/72 (89) 97 Intake and Output 04/03/19 04/04/19 19:00 07:00 Intake Total 590 ml 240 ml Balance 590 ml 240 ml Intake Oral 480 ml 240 ml IV Total 110 ml # Voids 3 Height (Feet): 5 Height (Inches): 0.00 Weight (Pounds): 112 General Appearance: no apparent distress Objective no change El Clark MD Apr 04, 2019 13:23
--- NOTE | 2019-04-04 14:35 | NUR ---
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 98.5 HR 90 RR 17 B/P 140/65 RA 98% IS: CEFEPIME IV FLAGYL PO HEPARIN SUBC MED/SURG STATUS
--- NOTE | 2019-04-04 18:56 | Internal Med Progress Note ---
Subjective Date of Service: Apr 04, 2019 Physician Name Zen Paige Attending Physician Marcos Silva MD Current Medications Medications (Trade) Dose Ordered Sig/Shantelle Route PRN Reason Start Time Stop Time Status Last Admin Dose Admin Acetaminophen (Tylenol) 650 mg Q4H PRN ORAL Mild Pain/Temp > 100.5 03/19/19 16:00 04/18/19 15:59 03/31/19 21:22 Barium Sulfate (Readi-Cat 2) 450 ml PRN PRN ORAL Radiology Procedure 03/27/19 13:30 04/26/19 13:29 Cefepime HCl 1 gm/ Dextrose 55 ml @ 110 mls/hr DAILY IVPB 03/30/19 09:00 04/06/19 08:59 04/04/19 08:59 Dextrose (Dextrose 50%) 25 ml Q30M PRN IV Hypoglycemia 03/23/19 08:45 04/22/19 08:44 Dextrose (Dextrose 50%) 50 ml Q30M PRN IV Hypoglycemia 03/23/19 08:45 04/22/19 08:44 Glipizide (Glucotrol) 5 mg BIAC ORAL 03/21/19 16:30 04/20/19 16:29 04/04/19 17:38 Heparin Sodium (Porcine) (Heparin 5000 units/ml) 5,000 units EVERY 12 HOURS SUBQ 03/13/19 21:00 04/09/19 20:59 04/04/19 09:00 Insulin Aspart (NovoLOG) BEFORE MEALS AND HS SUBQ 03/23/19 11:30 04/22/19 11:29 04/04/19 13:19 Magnesium Hydroxide (Mom) 30 ml DAILYPRN PRN ORAL Constipation 04/01/19 17:30 05/01/19 17:29 04/01/19 17:42 Metronidazole (Flagyl) 500 mg Q8HR ORAL 03/23/19 14:00 04/05/19 13:59 04/04/19 13:18 Nateglinide (Starlix) 120 mg TIAC ORAL 03/23/19 11:30 04/22/19 11:29 04/04/19 17:38 Ondansetron HCl (Zofran) 4 mg Q6H PRN IVP Nausea & Vomiting 03/13/19 19:15 04/09/19 13:14 03/31/19 09:06 Pantoprazole (Protonix) 40 mg EVERY 12 HOURS ORAL 03/16/19 21:00 04/15/19 20:59 04/04/19 09:00 Allergies: Coded Allergies: No Known Allergies (Unverified , 03/10/19) ROS Limited/Unobtainable: No Constitutional: Reports: no symptoms HEENT: Reports: no symptoms Cardiovascular: Reports: no symptoms Respiratory: Reports: no symptoms Gastrointestinal/Abdominal: Reports: no symptoms Genitourinary: Reports: no symptoms Neurologic/Psychiatric: Reports: no symptoms Subjective 84 YO F admitted with abdominal pain. S/P exploratory laparotomy 03/10/19. Now intra-abdominal abscess. Cover for Int Med-Dr Silva. Objective Last Vital Signs Date Time Temp Pulse Resp B/P (MAP) Pulse Ox O2 Delivery O2 Flow Rate FiO2 04/04/19 16:00 98.3 91 17 121/67 (85) 99 04/04/19 09:00 Room Air 03/27/19 19:32 21 Intake and Output 04/03/19 04/04/19 18:59 06:59 Intake Total 590 ml 240 ml Balance 590 ml 240 ml Intake Oral 480 ml 240 ml IV Total 110 ml # Voids 3 Objective PHYSICAL EXAMINATION: GENERAL: The patient is a well developed, well nourished female who is intubated and sedated. HEENT: Eyes, pupils equal and responsive to light and accommodation. Extraocular movements are intact. NECK: Supple without lymphadenopathy. CHEST: Nasc canula; Few diffuse wheezes bilaterally. Otherwise, without wheezes or rales. CARDIOVASCULAR: Regular rhythm rate. S1-S2 are normal without murmurs, rubs, or gallops. ABDOMEN: NGT; Soft, nontender with decreased bowel sounds. No evidence of hepatosplenomegaly. no rebound or guarding noted. EXTREMITIES: Negative for clubbing, cyanosis, edema. RECTAL/GENITAL: Not performed. NEUROLOGIC: Cranial nerves II through XII are grossly intact without focal deficits. Assessment/Plan Assessment/Plan ASSESSMENT: This is an 84-year-old female. 1. Perforated gastric ulcer 2. Abdominal pain. 3. Nausea with vomiting. 4. Diabetes type 2. 5. Hypertension. 6. Post Op fever-resolved 7. Leukocytosis 8. Intraabdominal abscess TREATMENT: 1. Perforated gastric ulcer. A General Surgery consultation has been obtained with Dr. Sheth. S/P exploratory laparotomy 03/10/19=perforated Pre pyloric ulcer. Tolerating regular diet; NGT discontinued per surgery 2. Diabetes type 2. NovoLog sliding scale has been instituted. 3. Hypertension. The patient is currently hypotensive. 4. Respiratory failure. S/P extubation 03/12/19. A Pulmonary consultation has been obtained with Dr. Bibiana Pennington. 5. Med/surg 6. ABX=Ertapenem for 6 weeks-end date 05/01/19 per ID 7. Surgical intervention on hold for intraabdominal abscess-see surgery note. Will require 6 weeks of ertapenem per ID 8. WBD now normal; Discharge planning Zen Paige MD Apr 04, 2019 18:56
--- NOTE | 2019-04-04 19:47 | NUR ---
HAND-OFF: Report given to SARAI Morgan pt. stable condition.
--- NOTE | 2019-04-04 19:50 | NUR ---
NURSE NOTES: Report taken from SARAI Payton. Patient is awake and seated in chair. Family at bedside, A&Ox4. No signs of distress on room air. No complaints of pain or discomfort. Case management consult placed for home health. IV site c/d/i and patent, no fluids running. Small area of redness on sacral area, pictures taken. Bed in lowest position, call light within reach. Continue to monitor
[2019-04-05 03:59] VITALS: BP 128/74
[2019-04-05] MEDS: metroNIDAZOLE 500mg tab ORAL SCH ×3 (05:39→21:46)
[2019-04-05] MEDS: GlipiZIDE 5mg tab ORAL SCH ×2 (05:39→16:34)
[2019-04-05] MEDS: NovoLOG Insulin Flexpen SUBQ SCH ×4 (06:30→20:14)
--- NOTE | 2019-04-05 07:44 | NUR ---
HAND-OFF: Report given to SARAI Evans. Patient is awake and seated at bedside with breakfast tray. VS stable.
--- NOTE | 2019-04-05 07:55 | NUR ---
NURSE NOTES: Patient found up in chair smiling and breathing easily on RA. AOX4 with calm affect. Breakfast tray set up for patient and patient restated that she would call if she had any requests or needed to get up out of the chair. Call hoover in reach. WCTM and continue with plan of care.
[2019-04-05 08:00] VITALS: BP 135/92
[2019-04-05] MEDS: Cefepime HCl 1 GM in D5W 55 ML IVPB SCH (08:45)
[2019-04-05] MEDS: Heparin 5000 units/ml inj SUBQ SCH ×2 (08:49→20:13)
--- NOTE | 2019-04-05 09:17 | NUR ---
NURSE NOTES: 9am: Reinforced IV insertion for cefapime administration--no leak and patient , asymptomatic site. Wound assess : belly vertical steristrips cdi with no redness and no pain on palpation. Bowel sounds audible. Belly soft, nontender. Addendum: 04/05/19 at 1427 by Fletcher Harmno RN 1430: Patient napping now comfortably.
--- NOTE | 2019-04-05 11:20 | Infectious Diseases Prog Note ---
Assessment/Plan Assessment/Plan Probable Sepsis- 2ry to likely intraabdominal abscess- ?source (post-op complication vs poultry cleaner or sigmoid origin) -03/29 Pelvic/transvaginal US: Partial septate uterus with distended fluid- filled endometrium, also demonstrated on recent CT scan. Right adnexal region irregular fluid collection, corresponding to findings reported on recent CT scan. This is contiguous with an immediately adjacent segment of bowel.This likewise corresponds to findings on recent CT. Note that the fluid collection and extent are better delineated on the prior study. Nonvisualized left ovary -CT abd/p: Markedly thickened and fluid-filled endometrium. 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 Complex multilobulated fluid collection with areas of enhancing soft tissue in the right adnexal region. This measures 5.5 x 7 x 3.9 cm. There is also a second tiny collection adjacent to the distal rectum. One possible etiology is, given the above finding, a tubo-ovarian abscess, related to retrograde propagation of endometritis. A second possibility is that this represents acute diverticulitis with peridiverticular abscess, given the close relationship with the distal sigmoid colon. A third possibility is this represents an abscess related to infected pelvic fluid from the prior gastric perforation, as the previous exam did demonstrate a small amount of free fluid in the pelvis. Finally, given the presence of the appendix (which isprominent in caliber) at the edge of the collection, this could represent perforated acute distal appendicitis. However, this is deemed less likely. Evidence of interim repair of previously demonstrated perforated gastric ulcer. No evidence of contrast leakage. No abnormal fluid collection at the operative site. Colonic diverticulosis. Slight rim enhancement of the gallbladder. Slight pericholecystic fluid. However, the gallbladder is nondistended, so doubt significance of this. Bilateral basilar pulmonary parenchymal groundglass opacity, likely on the basis of mild pulmonary edema Fever, SP Leukocytosis, recurrent, resolved-2 ry to above -9/4 Bcx Neg -03/22 CXR: Cardiomegaly.Bilateral basilar atelectasis or scarring. Decreased left pleural fluid u/a neg -9/2 BCx Neg -03/20 CXR: Subsegmental atelectasis versus infiltrate in the left lung base. -03/19 u/a neg Cdiff neg -v/ duplex no DVT Perforated pre-pyloric gastric ulcer -03/15 s/p UGI series: Negative for postoperative leak -03/10 SP 03/10 SP Exploratory Laparotomy, Abdominal washout. Partial omentectomy. Shane patch for repair of perforated pre-pyloric ulcer. -03/10 CT abd/p: Free intraperitoneal gas. Etiology not completely certain, but gas within and extending from the anterior gastric antral wall is suspicious for a perforated gastric ulcer. Perforated descending colon diverticulitis also possible but deemed much less likely. Free intraperitoneal fluid, presumably related to the above. Fatty liver. Basilar pulmonary parenchymal groundglass opacities. This could indicate pulmonary edema, among other possibilities. Subcentimeter low-attenuation renal lesions, too small to characterize, most likely benign simple cyst. No further follow-up necessary. 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 Acute encephalopathy -CT head: Chronic and age-related changes. Negative for acute intracranial bleed or mass effect VDRF, post-op; extubated 03/12 DARRON, SP Dm2 HTN Plan: -Cont Cefepime #19 and PO Flagyl #14 for intraabdominal abscess while in house -Discussed with Dr Sheth. It is unclear origin of abscess if complication from prior gastric perforation vs gynecological origin vs sigmoid related. Patient no longer febrile and it is felt she is high risk for surgical re-exploration. - Will recommend a total 6 weeks of IV ertapenem; end date 05/01/19; weekly CBC, CMP -03/22 SP Fluconazole #10 -03/15 SP Zosyn #6 -03/10 SP IV Vancomycin #1, Ancef x1 -f/u cx -Monitor CBC/CMP, temperatures -Sx f/u -wound care per surgical team -aspiration precautions Subjective Allergies: Coded Allergies: No Known Allergies (Unverified , 03/10/19) Subjective RICH Afebrile Leukcoytosis resolved Objective Vital Signs Last 24 Hour Vital Signs Date Time Temp Pulse Resp B/P (MAP) Pulse Ox O2 Delivery O2 Flow Rate FiO2 04/05/19 08:28 Room Air 04/05/19 08:00 97.2 98 18 135/92 (106) 98 04/05/19 03:59 99.3 93 16 128/74 (92) 98 04/04/19 23:30 97.8 89 16 128/74 (92) 97 04/04/19 21:00 Room Air 04/04/19 20:00 97.5 92 16 132/71 (91) 98 04/04/19 16:00 98.3 91 17 121/67 (85) 99 04/04/19 12:00 97.9 90 18 116/77 (90) 98 Height (Feet): 5 Height (Inches): 0.00 Weight (Pounds): 112 Objective General: NAD Head: NCAT, MMM, EOMI Lungs: CTAB, No W Heart: regular rate and rhythm, S1, S2 Abdomen: soft, NT, ND Bowel sounds normal.s Current Medications Medications (Trade) Dose Ordered Sig/Shantelle Route PRN Reason Start Time Stop Time Status Last Admin Dose Admin Acetaminophen (Tylenol) 650 mg Q4H PRN ORAL Mild Pain/Temp > 100.5 03/19/19 16:00 04/18/19 15:59 03/31/19 21:22 Barium Sulfate (Readi-Cat 2) 450 ml PRN PRN ORAL Radiology Procedure 03/27/19 13:30 04/26/19 13:29 Cefepime HCl 1 gm/ Dextrose 55 ml @ 110 mls/hr DAILY IVPB 03/30/19 09:00 04/06/19 08:59 04/05/19 08:45 Dextrose (Dextrose 50%) 25 ml Q30M PRN IV Hypoglycemia 03/23/19 08:45 04/22/19 08:44 Dextrose (Dextrose 50%) 50 ml Q30M PRN IV Hypoglycemia 03/23/19 08:45 04/22/19 08:44 Glipizide (Glucotrol) 5 mg BIAC ORAL 03/21/19 16:30 04/20/19 16:29 04/05/19 05:39 Heparin Sodium (Porcine) (Heparin 5000 units/ml) 5,000 units EVERY 12 HOURS SUBQ 03/13/19 21:00 04/09/19 20:59 04/05/19 08:49 Insulin Aspart (NovoLOG) BEFORE MEALS AND HS SUBQ 03/23/19 11:30 04/22/19 11:29 04/04/19 21:19 Magnesium Hydroxide (Mom) 30 ml DAILYPRN PRN ORAL Constipation 04/01/19 17:30 05/01/19 17:29 04/01/19 17:42 Metronidazole (Flagyl) 500 mg Q8HR ORAL 03/23/19 14:00 04/05/19 13:59 04/05/19 05:39 Nateglinide (Starlix) 120 mg TIAC ORAL 03/23/19 11:30 04/22/19 11:29 04/05/19 05:39 Ondansetron HCl (Zofran) 4 mg Q6H PRN IVP Nausea & Vomiting 03/13/19 19:15 04/09/19 13:14 03/31/19 09:06 Pantoprazole (Protonix) 40 mg EVERY 12 HOURS ORAL 03/16/19 21:00 04/15/19 20:59 04/05/19 08:44 Andrea Quiroz MD Apr 05, 2019 11:20
[2019-04-05 11:35] VITALS: BP 119/71
--- NOTE | 2019-04-05 11:48 | NUR ---
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
--- NOTE | 2019-04-05 15:58 | Nephrology Progress Note ---
Assessment/Plan Problem List: (1) Perforated abdominal viscus (2) Hypokalemia (3) Hypomagnesemia (4) Diabetes mellitus (5) Anemia Assessment WBC rising Post lap on 03/10 Low K Low Phos Low Mag Anemia DM h/o HTN Plan add oral hypoglycemics for high BS high K likely hemolysis resolved DC IV mag supplement change all to orals Mag and K and Phos IV as needed Anemia claudio Keep BP and BS in check per orders DC planning Subjective ROS Limited/Unobtainable: No Objective Objective Last 24 Hour Vital Signs Date Time Temp Pulse Resp B/P (MAP) Pulse Ox O2 Delivery O2 Flow Rate FiO2 04/05/19 11:35 97.4 77 19 119/71 (87) 95 04/05/19 08:28 Room Air 04/05/19 08:00 97.2 98 18 135/92 (106) 98 04/05/19 03:59 99.3 93 16 128/74 (92) 98 04/04/19 23:30 97.8 89 16 128/74 (92) 97 04/04/19 21:00 Room Air 04/04/19 20:00 97.5 92 16 132/71 (91) 98 04/04/19 16:00 98.3 91 17 121/67 (85) 99 Intake and Output 04/04/19 04/05/19 19:00 07:00 Intake Total 800 ml 425 ml Balance 800 ml 425 ml Intake Oral 800 ml 425 ml # Voids 3 3 Height (Feet): 5 Height (Inches): 0.00 Weight (Pounds): 112 General Appearance: no apparent distress Objective no change El Clark MD Apr 05, 2019 15:58
[2019-04-05 16:17] VITALS: BP 128/72
--- NOTE | 2019-04-05 16:56 | Internal Med Progress Note ---
Subjective Date of Service: Apr 05, 2019 Physician Name Zen Paige Attending Physician Marcos Silva MD Current Medications Medications (Trade) Dose Ordered Sig/Shantelle Route PRN Reason Start Time Stop Time Status Last Admin Dose Admin Acetaminophen (Tylenol) 650 mg Q4H PRN ORAL Mild Pain/Temp > 100.5 03/19/19 16:00 04/18/19 15:59 03/31/19 21:22 Barium Sulfate (Readi-Cat 2) 450 ml PRN PRN ORAL Radiology Procedure 03/27/19 13:30 04/26/19 13:29 Cefepime HCl 1 gm/ Dextrose 55 ml @ 110 mls/hr DAILY IVPB 03/30/19 09:00 04/12/19 23:59 04/05/19 08:45 Dextrose (Dextrose 50%) 25 ml Q30M PRN IV Hypoglycemia 03/23/19 08:45 04/22/19 08:44 Dextrose (Dextrose 50%) 50 ml Q30M PRN IV Hypoglycemia 03/23/19 08:45 04/22/19 08:44 Glipizide (Glucotrol) 5 mg BIAC ORAL 03/21/19 16:30 04/20/19 16:29 04/05/19 16:34 Heparin Sodium (Porcine) (Heparin 5000 units/ml) 5,000 units EVERY 12 HOURS SUBQ 03/13/19 21:00 04/09/19 20:59 04/05/19 08:49 Insulin Aspart (NovoLOG) BEFORE MEALS AND HS SUBQ 03/23/19 11:30 04/22/19 11:29 04/05/19 16:37 Magnesium Hydroxide (Mom) 30 ml DAILYPRN PRN ORAL Constipation 04/01/19 17:30 05/01/19 17:29 04/01/19 17:42 Metronidazole (Flagyl) 500 mg Q8HR ORAL 03/23/19 14:00 04/12/19 23:59 04/05/19 13:31 Nateglinide (Starlix) 120 mg TIAC ORAL 03/23/19 11:30 04/22/19 11:29 04/05/19 16:34 Ondansetron HCl (Zofran) 4 mg Q6H PRN IVP Nausea & Vomiting 03/13/19 19:15 04/09/19 13:14 03/31/19 09:06 Pantoprazole (Protonix) 40 mg EVERY 12 HOURS ORAL 03/16/19 21:00 04/15/19 20:59 04/05/19 08:44 Allergies: Coded Allergies: No Known Allergies (Unverified , 03/10/19) ROS Limited/Unobtainable: No Constitutional: Reports: no symptoms HEENT: Reports: no symptoms Cardiovascular: Reports: no symptoms Respiratory: Reports: no symptoms Gastrointestinal/Abdominal: Reports: no symptoms Genitourinary: Reports: no symptoms Neurologic/Psychiatric: Reports: no symptoms Subjective 84 YO F admitted with abdominal pain. S/P exploratory laparotomy 03/10/19. Now intra-abdominal abscess. Cover for Int Med-Dr Silva. Objective Last Vital Signs Date Time Temp Pulse Resp B/P (MAP) Pulse Ox O2 Delivery O2 Flow Rate FiO2 04/05/19 16:17 97.4 91 19 128/72 (90) 97 04/05/19 08:28 Room Air 03/27/19 19:32 21 Intake and Output 04/04/19 04/05/19 19:00 07:00 Intake Total 800 ml 425 ml Balance 800 ml 425 ml Intake Oral 800 ml 425 ml # Voids 3 3 Objective PHYSICAL EXAMINATION: GENERAL: The patient is a well developed, well nourished female who is intubated and sedated. HEENT: Eyes, pupils equal and responsive to light and accommodation. Extraocular movements are intact. NECK: Supple without lymphadenopathy. CHEST: Nasc canula; Few diffuse wheezes bilaterally. Otherwise, without wheezes or rales. CARDIOVASCULAR: Regular rhythm rate. S1-S2 are normal without murmurs, rubs, or gallops. ABDOMEN: NGT; Soft, nontender with decreased bowel sounds. No evidence of hepatosplenomegaly. no rebound or guarding noted. EXTREMITIES: Negative for clubbing, cyanosis, edema. RECTAL/GENITAL: Not performed. NEUROLOGIC: Cranial nerves II through XII are grossly intact without focal deficits. Assessment/Plan Assessment/Plan ASSESSMENT: This is an 84-year-old female. 1. Perforated gastric ulcer 2. Abdominal pain. 3. Nausea with vomiting. 4. Diabetes type 2. 5. Hypertension. 6. Post Op fever-resolved 7. Leukocytosis 8. Intraabdominal abscess TREATMENT: 1. Perforated gastric ulcer. A General Surgery consultation has been obtained with Dr. Sheth. S/P exploratory laparotomy 03/10/19=perforated Pre pyloric ulcer. Tolerating regular diet; NGT discontinued per surgery 2. Diabetes type 2. NovoLog sliding scale has been instituted. 3. Hypertension. The patient is currently hypotensive. 4. Respiratory failure. S/P extubation 03/12/19. A Pulmonary consultation has been obtained with Dr. Bibiana Pennington. 5. Med/surg 6. ABX=Ertapenem for 6 weeks-end date 05/01/19 per ID 7. Surgical intervention on hold for intraabdominal abscess-see surgery note. Will require 6 weeks of ertapenem per ID 8. WBC now normal; Discharge planning Zen Paige MD Apr 05, 2019 16:56
--- NOTE | 2019-04-05 17:27 | NUR ---
NURSE NOTES: This RN spoke with Dr Quiroz this afternoon (ID)who stated that he was unable to find a comparable po form of cefapime. PO flagyl started. Left message for CM regarding this challenge. Patient walked 200 feet in guill[place] with steady gait and standby assist. WCTM and cont'd with plan of care.
--- NOTE | 2019-04-05 19:36 | NUR ---
NURSE NOTES: Report taken from SARAI Evans. Patient is awake and ambulating room, A&Ox4. Uses walker to ambulate without difficulty No signs of distress on room air. No complaints of pain or discomfort. IV site c/d/i and patent, no fluids running per order. Awaiting case management to consult with patient about going home with HH. bed in lowest position, call light within reach.
[2019-04-05 20:00] VITALS: BP 135/71
[2019-04-06] VITALS: BP 128/67
[2019-04-06 04:00] VITALS: BP 138/80
[2019-04-06] MEDS: metroNIDAZOLE 500mg tab ORAL SCH ×3 (06:15→21:11)
[2019-04-06] MEDS: GlipiZIDE 5mg tab ORAL SCH ×2 (06:15→16:23)
[2019-04-06 06:25] LABS: BASOPHILS % (AUTO) 1.5 % (0.0-2.0); EOSINOPHILS % (AUTO) 0.6 % (0.0-3.0); HEMATOCRIT 34.9 % (37.0-47.0); HEMOGLOBIN 10.9 G/DL (12.0-16.0); LYMPHOCYTES % (AUTO) 24.8 % (20.0-45.0); MEAN CORPUSCULAR VOLUME 87 FL (80-99); MONOCYTES % (AUTO) 9.1 % (1.0-10.0); PLATELET COUNT 338 K/UL (150-450); RED BLOOD COUNT 4.01 M/UL (4.20-5.40); RED CELL DISTRIBUTION WIDTH 16.9 % (11.6-14.8); WHITE BLOOD COUNT 8.7 K/UL (4.8-10.8)
[2019-04-06] MEDS: NovoLOG Insulin Flexpen SUBQ SCH ×4 (06:30→21:18)
[2019-04-06 06:42] LABS: ANION GAP 12 mmol/L (5-15); BLOOD UREA NITROGEN 13 mg/dL (7-18); CALCIUM 9.2 MG/DL (8.5-10.1); CARBON DIOXIDE 20 MMOL/L (21-32); CHLORIDE 106 MMOL/L (98-107); CREATININE 0.6 MG/DL (0.55-1.30); POTASSIUM 3.5 MMOL/L (3.5-5.1); SODIUM 138 MMOL/L (136-145)
--- NOTE | 2019-04-06 07:08 | NUR ---
HAND-OFF: Report given to SARAI Dai .
--- NOTE | 2019-04-06 08:09 | NUR ---
pt awake, AxO x 2 sitting on the chair, forgetful, denies pain, tolerating diet well, no N/V, voiding, no BM. son at bedside. call light within reach, fall precaution maintained. will continue to monitor.
[2019-04-06] MEDS: Cefepime HCl 1 GM in D5W 55 ML IVPB SCH (08:19)
[2019-04-06] MEDS: Heparin 5000 units/ml inj SUBQ SCH ×2 (08:24→21:12)
[2019-04-06 08:26] VITALS: BP 140/81
--- NOTE | 2019-04-06 10:26 | Infectious Diseases Prog Note ---
Assessment/Plan Assessment/Plan Probable Sepsis- 2ry to likely intraabdominal abscess- ?source (post-op complication vs infusion nurse or sigmoid origin) -03/29 Pelvic/transvaginal US: Partial septate uterus with distended fluid- filled endometrium, also demonstrated on recent CT scan. Right adnexal region irregular fluid collection, corresponding to findings reported on recent CT scan. This is contiguous with an immediately adjacent segment of bowel.This likewise corresponds to findings on recent CT. Note that the fluid collection and extent are better delineated on the prior study. Nonvisualized left ovary -CT abd/p: Markedly thickened and fluid-filled endometrium. 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 Complex multilobulated fluid collection with areas of enhancing soft tissue in the right adnexal region. This measures 5.5 x 7 x 3.9 cm. There is also a second tiny collection adjacent to the distal rectum. One possible etiology is, given the above finding, a tubo-ovarian abscess, related to retrograde propagation of endometritis. A second possibility is that this represents acute diverticulitis with peridiverticular abscess, given the close relationship with the distal sigmoid colon. A third possibility is this represents an abscess related to infected pelvic fluid from the prior gastric perforation, as the previous exam did demonstrate a small amount of free fluid in the pelvis. Finally, given the presence of the appendix (which isprominent in caliber) at the edge of the collection, this could represent perforated acute distal appendicitis. However, this is deemed less likely. Evidence of interim repair of previously demonstrated perforated gastric ulcer. No evidence of contrast leakage. No abnormal fluid collection at the operative site. Colonic diverticulosis. Slight rim enhancement of the gallbladder. Slight pericholecystic fluid. However, the gallbladder is nondistended, so doubt significance of this. Bilateral basilar pulmonary parenchymal groundglass opacity, likely on the basis of mild pulmonary edema Fever, SP Leukocytosis, recurrent, resolved-2 ry to above -9/4 Bcx Neg -03/22 CXR: Cardiomegaly.Bilateral basilar atelectasis or scarring. Decreased left pleural fluid u/a neg -9/2 BCx Neg -03/20 CXR: Subsegmental atelectasis versus infiltrate in the left lung base. -03/19 u/a neg Cdiff neg -v/ duplex no DVT Perforated pre-pyloric gastric ulcer -03/15 s/p UGI series: Negative for postoperative leak -03/10 SP 03/10 SP Exploratory Laparotomy, Abdominal washout. Partial omentectomy. Shane patch for repair of perforated pre-pyloric ulcer. -03/10 CT abd/p: Free intraperitoneal gas. Etiology not completely certain, but gas within and extending from the anterior gastric antral wall is suspicious for a perforated gastric ulcer. Perforated descending colon diverticulitis also possible but deemed much less likely. Free intraperitoneal fluid, presumably related to the above. Fatty liver. Basilar pulmonary parenchymal groundglass opacities. This could indicate pulmonary edema, among other possibilities. Subcentimeter low-attenuation renal lesions, too small to characterize, most likely benign simple cyst. No further follow-up necessary. 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 Acute encephalopathy -CT head: Chronic and age-related changes. Negative for acute intracranial bleed or mass effect VDRF, post-op; extubated 03/12 DARRON, SP Dm2 HTN Plan: -Cont Cefepime #19 and PO Flagyl #14 for intraabdominal abscess while in house -Discussed with Dr Sheth. It is unclear origin of abscess if complication from prior gastric perforation vs gynecological origin vs sigmoid related. Patient no longer febrile and it is felt she is high risk for surgical re-exploration. - Will recommend a total 6 weeks of IV ertapenem; end date 05/01/19 - Monitor weekly CBC, CMP - Would not recommend PO abx in this case lack of cultures and unclear nature of the infection. -03/22 SP Fluconazole #10 -03/15 SP Zosyn #6 -03/10 SP IV Vancomycin #1, Ancef x1 -f/u cx -Monitor CBC/CMP, temperatures -Sx f/u -wound care per surgical team -aspiration precautions Subjective Allergies: Coded Allergies: No Known Allergies (Unverified , 03/10/19) Subjective Afebrile Leukcoytosis resolved Objective Vital Signs Last 24 Hour Vital Signs Date Time Temp Pulse Resp B/P (MAP) Pulse Ox O2 Delivery O2 Flow Rate FiO2 04/06/19 09:00 Room Air 04/06/19 08:26 98.1 98 18 140/81 (100) 97 04/06/19 04:00 98.6 98 16 138/80 (99) 97 04/06/19 00:00 98.5 92 16 128/67 (87) 97 04/05/19 21:00 Room Air 04/05/19 20:00 98.8 96 16 135/71 (92) 98 04/05/19 16:17 97.4 91 19 128/72 (90) 97 04/05/19 11:35 97.4 77 19 119/71 (87) 95 Height (Feet): 5 Height (Inches): 0.00 Weight (Pounds): 112 Objective General: NAD, Satting well Head: NCAT, MMM, EOMI Lungs: CTAB, No W Heart: regular rate and rhythm, S1, S2 Abdomen: soft, NT, ND Bowel sounds normal.s Laboratory Tests Test 04/06/19 05:30 White Blood Count 8.7 K/UL (4.8-10.8) Red Blood Count 4.01 M/UL (4.20-5.40) L Hemoglobin 10.9 G/DL (12.0-16.0) L Hematocrit 34.9 % (37.0-47.0) L Mean Corpuscular Volume 87 FL (80-99) Mean Corpuscular Hemoglobin 27.3 PG (27.0-31.0) Mean Corpuscular Hemoglobin Concent 31.3 G/DL (32.0-36.0) L Red Cell Distribution Width 16.9 % (11.6-14.8) H Platelet Count 338 K/UL (150-450) Mean Platelet Volume 6.1 FL (6.5-10.1) L Neutrophils (%) (Auto) 64.0 % (45.0-75.0) Lymphocytes (%) (Auto) 24.8 % (20.0-45.0) Monocytes (%) (Auto) 9.1 % (1.0-10.0) Eosinophils (%) (Auto) 0.6 % (0.0-3.0) Basophils (%) (Auto) 1.5 % (0.0-2.0) Erythrocyte Sedimentation Rate 96 MM/HR (0-30) H Sodium Level 138 MMOL/L (136-145) Potassium Level 3.5 MMOL/L (3.5-5.1) Chloride Level 106 MMOL/L (98-107) Carbon Dioxide Level 20 MMOL/L (21-32) L Anion Gap 12 mmol/L (5-15) Blood Urea Nitrogen 13 mg/dL (7-18) Creatinine 0.6 MG/DL (0.55-1.30) Estimat Glomerular Filtration Rate mL/min (>60) Glucose Level 106 MG/DL (74-106) Calcium Level 9.2 MG/DL (8.5-10.1) C-Reactive Protein, Quantitative 2.1 mg/dL (0.00-0.90) H Current Medications Medications (Trade) Dose Ordered Sig/Shantelle Route PRN Reason Start Time Stop Time Status Last Admin Dose Admin Acetaminophen (Tylenol) 650 mg Q4H PRN ORAL Mild Pain/Temp > 100.5 03/19/19 16:00 04/18/19 15:59 03/31/19 21:22 Barium Sulfate (Readi-Cat 2) 450 ml PRN PRN ORAL Radiology Procedure 03/27/19 13:30 04/26/19 13:29 Cefepime HCl 1 gm/ Dextrose 55 ml @ 110 mls/hr DAILY IVPB 03/30/19 09:00 04/12/19 23:59 04/06/19 08:19 Dextrose (Dextrose 50%) 25 ml Q30M PRN IV Hypoglycemia 03/23/19 08:45 04/22/19 08:44 Dextrose (Dextrose 50%) 50 ml Q30M PRN IV Hypoglycemia 03/23/19 08:45 04/22/19 08:44 Glipizide (Glucotrol) 5 mg BIAC ORAL 03/21/19 16:30 04/20/19 16:29 04/06/19 06:15 Heparin Sodium (Porcine) (Heparin 5000 units/ml) 5,000 units EVERY 12 HOURS SUBQ 03/13/19 21:00 04/09/19 20:59 04/06/19 08:24 Insulin Aspart (NovoLOG) BEFORE MEALS AND HS SUBQ 03/23/19 11:30 04/22/19 11:29 04/05/19 20:14 Magnesium Hydroxide (Mom) 30 ml DAILYPRN PRN ORAL Constipation 04/01/19 17:30 05/01/19 17:29 04/01/19 17:42 Metronidazole (Flagyl) 500 mg Q8HR ORAL 03/23/19 14:00 04/12/19 23:59 04/06/19 06:15 Nateglinide (Starlix) 120 mg TIAC ORAL 03/23/19 11:30 04/22/19 11:29 04/06/19 06:14 Ondansetron HCl (Zofran) 4 mg Q6H PRN IVP Nausea & Vomiting 03/13/19 19:15 04/09/19 13:14 03/31/19 09:06 Pantoprazole (Protonix) 40 mg EVERY 12 HOURS ORAL 03/16/19 21:00 04/15/19 20:59 04/06/19 08:18 Andrea Quiroz MD Apr 06, 2019 10:26
--- NOTE | 2019-04-06 10:42 | Nephrology Progress Note ---
Assessment/Plan Problem List: (1) Perforated abdominal viscus (2) Hypokalemia (3) Hypomagnesemia (4) Diabetes mellitus (5) Anemia Assessment WBC rising Post lap on 03/10 Low K Low Phos Low Mag Anemia DM h/o HTN Plan add oral hypoglycemics for high BS high K likely hemolysis resolved DC IV mag supplement change all to orals Mag and K and Phos IV as needed Anemia claudio Keep BP and BS in check per orders DC planning Subjective ROS Limited/Unobtainable: No Objective Objective Last 24 Hour Vital Signs Date Time Temp Pulse Resp B/P (MAP) Pulse Ox O2 Delivery O2 Flow Rate FiO2 04/06/19 09:00 Room Air 04/06/19 08:26 98.1 98 18 140/81 (100) 97 04/06/19 04:00 98.6 98 16 138/80 (99) 97 04/06/19 00:00 98.5 92 16 128/67 (87) 97 04/05/19 21:00 Room Air 04/05/19 20:00 98.8 96 16 135/71 (92) 98 04/05/19 16:17 97.4 91 19 128/72 (90) 97 04/05/19 11:35 97.4 77 19 119/71 (87) 95 Intake and Output 04/05/19 04/06/19 19:00 07:00 Intake Total 280 ml 360 ml Balance 280 ml 360 ml Intake Oral 280 ml 360 ml # Voids 2 3 Laboratory Tests 04/06/19 05:30: White Blood Count 8.7, Red Blood Count 4.01L, Hemoglobin 10.9L, Hematocrit 34.9L , Mean Corpuscular Volume 87, Mean Corpuscular Hemoglobin 27.3, Mean Corpuscular Hemoglobin Concent 31.3L, Red Cell Distribution Width 16.9H, Platelet Count 338, Mean Platelet Volume 6.1L, Neutrophils (%) (Auto) 64.0, Lymphocytes (%) (Auto) 24.8, Monocytes (%) (Auto) 9.1, Eosinophils (%) (Auto) 0.6, Basophils (%) (Auto) 1.5, Erythrocyte Sedimentation Rate 96H, Sodium Level 138, Potassium Level 3.5, Chloride Level 106, Carbon Dioxide Level 20L, Anion Gap 12, Blood Urea Nitrogen 13, Creatinine 0.6, Estimat Glomerular Filtration Rate , Glucose Level 106, Calcium Level 9.2, C-Reactive Protein, Quantitative 2.1H Height (Feet): 5 Height (Inches): 0.00 Weight (Pounds): 112 General Appearance: no apparent distress Objective no change El Clark MD Apr 06, 2019 10:42
[2019-04-06 12:00] VITALS: BP 131/78
--- NOTE | 2019-04-06 12:05 | Internal Med Progress Note ---
Subjective Date of Service: Apr 06, 2019 Physician Name Zen Paige Attending Physician Marcos Silva MD Current Medications Medications (Trade) Dose Ordered Sig/Shantelle Route PRN Reason Start Time Stop Time Status Last Admin Dose Admin Acetaminophen (Tylenol) 650 mg Q4H PRN ORAL Mild Pain/Temp > 100.5 03/19/19 16:00 04/18/19 15:59 03/31/19 21:22 Barium Sulfate (Readi-Cat 2) 450 ml PRN PRN ORAL Radiology Procedure 03/27/19 13:30 04/26/19 13:29 Cefepime HCl 1 gm/ Dextrose 55 ml @ 110 mls/hr DAILY IVPB 03/30/19 09:00 04/12/19 23:59 04/06/19 08:19 Dextrose (Dextrose 50%) 25 ml Q30M PRN IV Hypoglycemia 03/23/19 08:45 04/22/19 08:44 Dextrose (Dextrose 50%) 50 ml Q30M PRN IV Hypoglycemia 03/23/19 08:45 04/22/19 08:44 Glipizide (Glucotrol) 5 mg BIAC ORAL 03/21/19 16:30 04/20/19 16:29 04/06/19 06:15 Heparin Sodium (Porcine) (Heparin 5000 units/ml) 5,000 units EVERY 12 HOURS SUBQ 03/13/19 21:00 04/09/19 20:59 04/06/19 08:24 Insulin Aspart (NovoLOG) BEFORE MEALS AND HS SUBQ 03/23/19 11:30 04/22/19 11:29 04/06/19 11:46 Magnesium Hydroxide (Mom) 30 ml DAILYPRN PRN ORAL Constipation 04/01/19 17:30 05/01/19 17:29 04/01/19 17:42 Metronidazole (Flagyl) 500 mg Q8HR ORAL 03/23/19 14:00 04/12/19 23:59 04/06/19 06:15 Nateglinide (Starlix) 120 mg TIAC ORAL 03/23/19 11:30 04/22/19 11:29 04/06/19 11:49 Ondansetron HCl (Zofran) 4 mg Q6H PRN IVP Nausea & Vomiting 03/13/19 19:15 04/09/19 13:14 03/31/19 09:06 Pantoprazole (Protonix) 40 mg EVERY 12 HOURS ORAL 03/16/19 21:00 04/15/19 20:59 04/06/19 08:18 Allergies: Coded Allergies: No Known Allergies (Unverified , 03/10/19) ROS Limited/Unobtainable: No Constitutional: Reports: no symptoms HEENT: Reports: no symptoms Cardiovascular: Reports: no symptoms Respiratory: Reports: no symptoms Gastrointestinal/Abdominal: Reports: no symptoms Genitourinary: Reports: no symptoms Neurologic/Psychiatric: Reports: no symptoms Subjective 84 YO F admitted with abdominal pain. S/P exploratory laparotomy 03/10/19. Now intra-abdominal abscess. Cover for Int Marcus-Dr Silva. Objective Last Vital Signs Date Time Temp Pulse Resp B/P (MAP) Pulse Ox O2 Delivery O2 Flow Rate FiO2 04/06/19 09:00 Room Air 04/06/19 08:26 98.1 98 18 140/81 (100) 97 Laboratory Tests Test 04/06/19 05:30 White Blood Count 8.7 K/UL (4.8-10.8) Red Blood Count 4.01 M/UL (4.20-5.40) L Hemoglobin 10.9 G/DL (12.0-16.0) L Hematocrit 34.9 % (37.0-47.0) L Mean Corpuscular Volume 87 FL (80-99) Mean Corpuscular Hemoglobin 27.3 PG (27.0-31.0) Mean Corpuscular Hemoglobin Concent 31.3 G/DL (32.0-36.0) L Red Cell Distribution Width 16.9 % (11.6-14.8) H Platelet Count 338 K/UL (150-450) Mean Platelet Volume 6.1 FL (6.5-10.1) L Neutrophils (%) (Auto) 64.0 % (45.0-75.0) Lymphocytes (%) (Auto) 24.8 % (20.0-45.0) Monocytes (%) (Auto) 9.1 % (1.0-10.0) Eosinophils (%) (Auto) 0.6 % (0.0-3.0) Basophils (%) (Auto) 1.5 % (0.0-2.0) Erythrocyte Sedimentation Rate 96 MM/HR (0-30) H Sodium Level 138 MMOL/L (136-145) Potassium Level 3.5 MMOL/L (3.5-5.1) Chloride Level 106 MMOL/L (98-107) Carbon Dioxide Level 20 MMOL/L (21-32) L Anion Gap 12 mmol/L (5-15) Blood Urea Nitrogen 13 mg/dL (7-18) Creatinine 0.6 MG/DL (0.55-1.30) Estimat Glomerular Filtration Rate mL/min (>60) Glucose Level 106 MG/DL (74-106) Calcium Level 9.2 MG/DL (8.5-10.1) C-Reactive Protein, Quantitative 2.1 mg/dL (0.00-0.90) H Intake and Output 04/05/19 04/06/19 19:00 07:00 Intake Total 280 ml 360 ml Balance 280 ml 360 ml Intake Oral 280 ml 360 ml # Voids 2 3 Objective PHYSICAL EXAMINATION: GENERAL: The patient is a well developed, well nourished female who is intubated and sedated. HEENT: Eyes, pupils equal and responsive to light and accommodation. Extraocular movements are intact. NECK: Supple without lymphadenopathy. CHEST: Nasc canula; Few diffuse wheezes bilaterally. Otherwise, without wheezes or rales. CARDIOVASCULAR: Regular rhythm rate. S1-S2 are normal without murmurs, rubs, or gallops. ABDOMEN: NGT; Soft, nontender with decreased bowel sounds. No evidence of hepatosplenomegaly. no rebound or guarding noted. EXTREMITIES: Negative for clubbing, cyanosis, edema. RECTAL/GENITAL: Not performed. NEUROLOGIC: Cranial nerves II through XII are grossly intact without focal deficits. Assessment/Plan Assessment/Plan ASSESSMENT: This is an 84-year-old female. 1. Perforated gastric ulcer 2. Abdominal pain. 3. Nausea with vomiting. 4. Diabetes type 2. 5. Hypertension. 6. Post Op fever-resolved 7. Leukocytosis 8. Intraabdominal abscess TREATMENT: 1. Perforated gastric ulcer. A General Surgery consultation has been obtained with Dr. Sheth. S/P exploratory laparotomy 03/10/19=perforated Pre pyloric ulcer. Tolerating regular diet; NGT discontinued per surgery 2. Diabetes type 2. NovoLog sliding scale has been instituted. 3. Hypertension. The patient is currently hypotensive. 4. Respiratory failure. S/P extubation 03/12/19. A Pulmonary consultation has been obtained with Dr. Bibiana Pennington. 5. Med/surg 6. ABX=Ertapenem for 6 weeks-end date 05/01/19 per ID 7. Surgical intervention on hold for intraabdominal abscess-see surgery note. Will require 6 weeks of ertapenem per ID 8. WBC now normal; Discharge planning Zen Paige MD Apr 06, 2019 12:05
--- NOTE | 2019-04-06 12:49 | NUR ---
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 98.3 HR 92 RR 18 B/P 131/78 RA 98% ESR 96 IS: CEFEPIME IV FLAGYL PO HEPARAN SUBC MED/SURG STATUS
[2019-04-06 16:00] VITALS: BP 117/57
--- NOTE | 2019-04-06 19:30 | NUR ---
NURSE NOTES: Receive a report from SARAI Dai. Round is done. Pt is awake and alert, sitting on a chair on the phone. No acute distress noted. Denies pain. Family member at bed side. Leave call light within reach. Will continue to monitor.
[2019-04-06 20:00] VITALS: BP 128/66
[2019-04-07] VITALS: BP 133/86
[2019-04-07 04:30] VITALS: BP 132/69
--- NOTE | 2019-04-07 06:00 | NUR ---
NURSE NOTES: Pt is up early and wants to get out of bed. Assist to chair. Denies pain. Noted decreased swelling on right knee. No nausea/vomiting noted. Assist morning care. Encourage to do I/S with coughing. NO chilling or febrile sensation. Will continue to monitor. Addendum: 04/07/19 at 0640 by Boo Martin RN INCORRECT CHARTING
[2019-04-07] MEDS: NovoLOG Insulin Flexpen SUBQ SCH ×4 (06:26→20:17)
[2019-04-07] MEDS: GlipiZIDE 5mg tab ORAL SCH ×2 (06:27→17:25)
[2019-04-07] MEDS: metroNIDAZOLE 500mg tab ORAL SCH ×3 (06:27→21:16)
--- NOTE | 2019-04-07 07:30 | NUR ---
HAND-OFF: Report given to SARAI Woodall. Round is done. No aucte distress noted. Having breakfast.
--- NOTE | 2019-04-07 07:35 | NUR ---
NURSE NOTES: Received report from SARAI Haddad. Rounding done with outgoing nurse. Pt a/o x 4, Greenlandic peaking. No respiratory distress noted. Denies any pain at this time. Son is at bedside. Bed in lowest position, call light within reach. Will continue to monitor.
[2019-04-07 08:00] VITALS: BP 116/75
[2019-04-07] MEDS: Cefepime HCl 1 GM in D5W 55 ML IVPB SCH (08:40)
[2019-04-07] MEDS: Heparin 5000 units/ml inj SUBQ SCH ×2 (08:41→20:16)
[2019-04-07 12:00] VITALS: BP 126/76
--- NOTE | 2019-04-07 12:17 | Infectious Diseases Prog Note ---
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 Right adnexal region irregular fluid collection, corresponding to findings reported on recent CT scan. This is contiguous with an immediately adjacent segment of bowel.This likewise corresponds to findings on recent CT. Note that the fluid collection and extent are better delineated on the prior study. Nonvisualized left ovary -CT abd/p: Markedly thickened and fluid-filled endometrium. 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 Complex multilobulated fluid collection with areas of enhancing soft tissue in the right adnexal region. This measures 5.5 x 7 x 3.9 cm. There is also a second tiny collection adjacent to the distal rectum. One possible etiology is, given the above finding, a tubo-ovarian abscess, related to retrograde propagation of endometritis. A second possibility is that this represents acute diverticulitis with peridiverticular abscess, given the close relationship with the distal sigmoid colon. A third possibility is this represents an abscess related to infected pelvic fluid from the prior gastric perforation, as the previous exam did demonstrate a small amount of free fluid in the pelvis. Finally, given the presence of the appendix (which isprominent in caliber) at the edge of the collection, this could represent perforated acute distal appendicitis. However, this is deemed less likely. Evidence of interim repair of previously demonstrated perforated gastric ulcer. No evidence of contrast leakage. No abnormal fluid collection at the operative site. Colonic diverticulosis. Slight rim enhancement of the gallbladder. Slight pericholecystic fluid. However, the gallbladder is nondistended, so doubt significance of this. Bilateral basilar pulmonary parenchymal groundglass opacity, likely on the basis of mild pulmonary edema Fever, SP Leukocytosis, recurrent, resolved-2 ry to above -9/4 Bcx Neg -03/22 CXR: Cardiomegaly.Bilateral basilar atelectasis or scarring. Decreased left pleural fluid u/a neg -9/2 BCx Neg -03/20 CXR: Subsegmental atelectasis versus infiltrate in the left lung base. -03/19 u/a neg Cdiff neg -v/ duplex no DVT Perforated pre-pyloric gastric ulcer -03/15 s/p UGI series: Negative for postoperative leak -03/10 SP 03/10 SP Exploratory Laparotomy, Abdominal washout. Partial omentectomy. Shane patch for repair of perforated pre-pyloric ulcer. -03/10 CT abd/p: Free intraperitoneal gas. Etiology not completely certain, but gas within and extending from the anterior gastric antral wall is suspicious for a perforated gastric ulcer. Perforated descending colon diverticulitis also possible but deemed much less likely. Free intraperitoneal fluid, presumably related to the above. Fatty liver. Basilar pulmonary parenchymal groundglass opacities. This could indicate pulmonary edema, among other possibilities. Subcentimeter low-attenuation renal lesions, too small to characterize, most likely benign simple cyst. No further follow-up necessary. 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 Acute encephalopathy -CT head: Chronic and age-related changes. Negative for acute intracranial bleed or mass effect VDRF, post-op; extubated 03/12 DARRON, SP Dm2 HTN Plan: -Cont Cefepime #20 and PO Flagyl #15 for intraabdominal abscess while in house -Discussed with Dr Sheth. It is unclear origin of abscess if complication from prior gastric perforation vs gynecological origin vs sigmoid related. Patient no longer febrile and it is felt she is high risk for surgical re-exploration. - Will recommend a total 6 weeks of IV ertapenem; end date 05/01/19 - Monitor weekly CBC, CMP - Would not recommend PO abx in this case lack of cultures and unclear nature of the infection. -03/22 SP Fluconazole #10 -03/15 SP Zosyn #6 -03/10 SP IV Vancomycin #1, Ancef x1 -f/u cx -Monitor CBC/CMP, temperatures -Sx f/u -wound care per surgical team -aspiration precautions Subjective Allergies: Coded Allergies: No Known Allergies (Unverified , 03/10/19) Subjective Afebrile No Leukcoytosis Feeing well Objective Vital Signs Last 24 Hour Vital Signs Date Time Temp Pulse Resp B/P (MAP) Pulse Ox O2 Delivery O2 Flow Rate FiO2 04/07/19 09:00 Room Air 04/07/19 08:00 98.2 89 20 116/75 (89) 97 04/07/19 04:30 99.2 92 16 132/69 (90) 99 04/07/19 00:00 98.9 90 18 133/86 (102) 96 04/06/19 21:00 Room Air 04/06/19 21:00 Room Air 04/06/19 20:00 99.1 83 16 128/66 (86) 95 04/06/19 16:00 98.9 18 117/57 (77) 99 Height (Feet): 5 Height (Inches): 0.00 Weight (Pounds): 112 Objective General: NAD Head: NCAT, MMM, EOMI Lungs: CTAB, No W Heart: regular rate and rhythm, S1, S2 Abdomen: soft, NT, ND Bowel sounds normal.s Current Medications Medications (Trade) Dose Ordered Sig/Shantelle Route PRN Reason Start Time Stop Time Status Last Admin Dose Admin Acetaminophen (Tylenol) 650 mg Q4H PRN ORAL Mild Pain/Temp > 100.5 03/19/19 16:00 04/18/19 15:59 03/31/19 21:22 Barium Sulfate (Readi-Cat 2) 450 ml PRN PRN ORAL Radiology Procedure 03/27/19 13:30 04/26/19 13:29 Cefepime HCl 1 gm/ Dextrose 55 ml @ 110 mls/hr DAILY IVPB 03/30/19 09:00 04/12/19 23:59 04/07/19 08:40 Dextrose (Dextrose 50%) 25 ml Q30M PRN IV Hypoglycemia 03/23/19 08:45 04/22/19 08:44 Dextrose (Dextrose 50%) 50 ml Q30M PRN IV Hypoglycemia 03/23/19 08:45 04/22/19 08:44 Glipizide (Glucotrol) 5 mg BIAC ORAL 03/21/19 16:30 04/20/19 16:29 04/07/19 06:27 Heparin Sodium (Porcine) (Heparin 5000 units/ml) 5,000 units EVERY 12 HOURS SUBQ 03/13/19 21:00 04/09/19 20:59 04/07/19 08:41 Insulin Aspart (NovoLOG) BEFORE MEALS AND HS SUBQ 03/23/19 11:30 04/22/19 11:29 04/07/19 12:14 Magnesium Hydroxide (Mom) 30 ml DAILYPRN PRN ORAL Constipation 04/01/19 17:30 05/01/19 17:29 04/01/19 17:42 Metronidazole (Flagyl) 500 mg Q8HR ORAL 03/23/19 14:00 04/12/19 23:59 04/07/19 06:27 Nateglinide (Starlix) 120 mg TIAC ORAL 03/23/19 11:30 04/22/19 11:29 04/07/19 12:13 Ondansetron HCl (Zofran) 4 mg Q6H PRN IVP Nausea & Vomiting 03/13/19 19:15 04/09/19 13:14 03/31/19 09:06 Pantoprazole (Protonix) 40 mg EVERY 12 HOURS ORAL 03/16/19 21:00 04/15/19 20:59 04/07/19 08:40 Andrea Quiroz MD Apr 07, 2019 12:17
--- NOTE | 2019-04-07 14:55 | Nephrology Progress Note ---
Assessment/Plan Problem List: (1) Perforated abdominal viscus (2) Hypokalemia (3) Hypomagnesemia (4) Diabetes mellitus (5) Anemia Assessment WBC rising Post lap on 03/10 Low K Low Phos Low Mag Anemia DM h/o HTN Plan add oral hypoglycemics for high BS high K likely hemolysis resolved DC IV mag supplement change all to orals Mag and K and Phos IV as needed Anemia claudio Keep BP and BS in check per orders DC planning Subjective ROS Limited/Unobtainable: No Objective Objective Last 24 Hour Vital Signs Date Time Temp Pulse Resp B/P (MAP) Pulse Ox O2 Delivery O2 Flow Rate FiO2 04/07/19 12:00 98.2 86 18 126/76 (93) 98 04/07/19 09:00 Room Air 04/07/19 08:00 98.2 89 20 116/75 (89) 97 04/07/19 04:30 99.2 92 16 132/69 (90) 99 04/07/19 00:00 98.9 90 18 133/86 (102) 96 04/06/19 21:00 Room Air 04/06/19 21:00 Room Air 04/06/19 20:00 99.1 83 16 128/66 (86) 95 04/06/19 16:00 98.9 18 117/57 (77) 99 Intake and Output 04/06/19 04/07/19 19:00 07:00 Intake Total 480 ml 120 ml Balance 480 ml 120 ml Intake Oral 480 ml 120 ml # Voids 3 5 Height (Feet): 5 Height (Inches): 0.00 Weight (Pounds): 112 General Appearance: no apparent distress Objective no change El Clark MD Apr 07, 2019 14:55
[2019-04-07 16:00] VITALS: BP 128/70
--- NOTE | 2019-04-07 16:55 | Internal Med Progress Note ---
Subjective Date of Service: Apr 07, 2019 Physician Name Zen Paige Attending Physician Marcos Silva MD Current Medications Medications (Trade) Dose Ordered Sig/Shantelle Route PRN Reason Start Time Stop Time Status Last Admin Dose Admin Acetaminophen (Tylenol) 650 mg Q4H PRN ORAL Mild Pain/Temp > 100.5 03/19/19 16:00 04/18/19 15:59 03/31/19 21:22 Barium Sulfate (Readi-Cat 2) 450 ml PRN PRN ORAL Radiology Procedure 03/27/19 13:30 04/26/19 13:29 Cefepime HCl 1 gm/ Dextrose 55 ml @ 110 mls/hr DAILY IVPB 03/30/19 09:00 04/12/19 23:59 04/07/19 08:40 Dextrose (Dextrose 50%) 25 ml Q30M PRN IV Hypoglycemia 03/23/19 08:45 04/22/19 08:44 Dextrose (Dextrose 50%) 50 ml Q30M PRN IV Hypoglycemia 03/23/19 08:45 04/22/19 08:44 Glipizide (Glucotrol) 5 mg BIAC ORAL 03/21/19 16:30 04/20/19 16:29 04/07/19 06:27 Heparin Sodium (Porcine) (Heparin 5000 units/ml) 5,000 units EVERY 12 HOURS SUBQ 03/13/19 21:00 04/09/19 20:59 04/07/19 08:41 Insulin Aspart (NovoLOG) BEFORE MEALS AND HS SUBQ 03/23/19 11:30 04/22/19 11:29 04/07/19 12:14 Magnesium Hydroxide (Mom) 30 ml DAILYPRN PRN ORAL Constipation 04/01/19 17:30 05/01/19 17:29 04/01/19 17:42 Metronidazole (Flagyl) 500 mg Q8HR ORAL 03/23/19 14:00 04/12/19 23:59 04/07/19 14:09 Nateglinide (Starlix) 120 mg TIAC ORAL 03/23/19 11:30 04/22/19 11:29 04/07/19 12:13 Ondansetron HCl (Zofran) 4 mg Q6H PRN IVP Nausea & Vomiting 03/13/19 19:15 04/09/19 13:14 03/31/19 09:06 Pantoprazole (Protonix) 40 mg EVERY 12 HOURS ORAL 03/16/19 21:00 04/15/19 20:59 04/07/19 08:40 Allergies: Coded Allergies: No Known Allergies (Unverified , 03/10/19) ROS Limited/Unobtainable: No Constitutional: Reports: no symptoms HEENT: Reports: no symptoms Cardiovascular: Reports: no symptoms Respiratory: Reports: no symptoms Gastrointestinal/Abdominal: Reports: no symptoms Genitourinary: Reports: no symptoms Neurologic/Psychiatric: Reports: no symptoms Subjective 84 YO F admitted with abdominal pain. S/P exploratory laparotomy 03/10/19. Now intra-abdominal abscess. Cover for Int Med-Dr Silva. Objective Last Vital Signs Date Time Temp Pulse Resp B/P (MAP) Pulse Ox O2 Delivery O2 Flow Rate FiO2 04/07/19 16:00 98.4 84 18 128/70 (89) 99 04/07/19 09:00 Room Air Intake and Output 04/06/19 04/07/19 19:00 07:00 Intake Total 480 ml 120 ml Balance 480 ml 120 ml Intake Oral 480 ml 120 ml # Voids 3 5 Objective PHYSICAL EXAMINATION: GENERAL: The patient is a well developed, well nourished female who is intubated and sedated. HEENT: Eyes, pupils equal and responsive to light and accommodation. Extraocular movements are intact. NECK: Supple without lymphadenopathy. CHEST: Nasc canula; Few diffuse wheezes bilaterally. Otherwise, without wheezes or rales. CARDIOVASCULAR: Regular rhythm rate. S1-S2 are normal without murmurs, rubs, or gallops. ABDOMEN: NGT; Soft, nontender with decreased bowel sounds. No evidence of hepatosplenomegaly. no rebound or guarding noted. EXTREMITIES: Negative for clubbing, cyanosis, edema. RECTAL/GENITAL: Not performed. NEUROLOGIC: Cranial nerves II through XII are grossly intact without focal deficits. Assessment/Plan Assessment/Plan ASSESSMENT: This is an 84-year-old female. 1. Perforated gastric ulcer 2. Abdominal pain. 3. Nausea with vomiting. 4. Diabetes type 2. 5. Hypertension. 6. Post Op fever-resolved 7. Leukocytosis 8. Intraabdominal abscess TREATMENT: 1. Perforated gastric ulcer. A General Surgery consultation has been obtained with Dr. Sheth. S/P exploratory laparotomy 03/10/19=perforated Pre pyloric ulcer. Tolerating regular diet; NGT discontinued per surgery 2. Diabetes type 2. NovoLog sliding scale has been instituted. 3. Hypertension. The patient is currently hypotensive. 4. Respiratory failure. S/P extubation 03/12/19. A Pulmonary consultation has been obtained with Dr. Bibiana Pennington. 5. Med/surg 6. ABX=Ertapenem for 6 weeks-end date 05/01/19 per ID 7. Surgical intervention on hold for intraabdominal abscess-see surgery note. Will require 6 weeks of ertapenem per ID 8. WBC now normal; Discharge planning Zen Paige MD Apr 07, 2019 16:55
--- NOTE | 2019-04-07 19:17 | NUR ---
HAND-OFF: Report given to SARAI Rosa. Pt is stable.
--- NOTE | 2019-04-07 19:30 | NUR ---
NURSE NOTES: Received report from SARAI Woodall and rounds made with outgoing nurse. Received pt sitting in chair, AOx4, Macanese speaking only, able to make needs known without any problems, son at bedside for translation. IV patent and intact. No distress noted. Bed in lowest position and locked, side rails up x 2, call light within reach. Will continue to monitor.
[2019-04-07 20:00] VITALS: BP 150/79
[2019-04-08] VITALS: BP 142/83
[2019-04-08 04:00] VITALS: BP 127/66
[2019-04-08] MEDS: GlipiZIDE 5mg tab ORAL SCH ×2 (06:30→16:58)
[2019-04-08] MEDS: NovoLOG Insulin Flexpen SUBQ SCH ×4 (06:30→20:59)
[2019-04-08] MEDS: metroNIDAZOLE 500mg tab ORAL SCH ×3 (06:58→22:21)
--- NOTE | 2019-04-08 07:24 | NUR ---
NURSE NOTES: Received report from SARAI Rosa. Pt is a/o x 4, having a breakfast on the chair. Denies pain at this time. Abd surgical site dressing is C/D/I. Bed in lowest position, call light within reach. Will continue to monitor.
--- NOTE | 2019-04-08 07:30 | NUR ---
HAND-OFF: Report given to SARAI Woodall. Pt in stable condition.
[2019-04-08 08:00] VITALS: BP 132/75
[2019-04-08] MEDS: Cefepime HCl 1 GM in D5W 55 ML IVPB SCH (08:45)
[2019-04-08] MEDS: Heparin 5000 units/ml inj SUBQ SCH ×2 (08:46→21:00)
--- NOTE | 2019-04-08 10:11 | Nephrology Progress Note ---
Assessment/Plan Problem List: (1) Perforated abdominal viscus (2) Hypokalemia (3) Hypomagnesemia (4) Diabetes mellitus (5) Anemia Assessment WBC rising Post lap on 03/10 Low K Low Phos Low Mag Anemia DM h/o HTN Plan add oral hypoglycemics for high BS high K likely hemolysis resolved DC IV mag supplement change all to orals Mag and K and Phos IV as needed Anemia claudio Keep BP and BS in check per orders DC planning Subjective ROS Limited/Unobtainable: No Objective Objective Last 24 Hour Vital Signs Date Time Temp Pulse Resp B/P (MAP) Pulse Ox O2 Delivery O2 Flow Rate FiO2 04/08/19 09:00 Room Air 04/08/19 08:00 97.6 103 17 132/75 (94) 95 04/08/19 04:00 99.5 98 18 127/66 (86) 98 04/08/19 00:00 99.1 92 18 142/83 (102) 96 04/07/19 21:00 Room Air 04/07/19 20:00 99.0 90 16 150/79 (102) 95 04/07/19 16:00 98.4 84 18 128/70 (89) 99 04/07/19 12:00 98.2 86 18 126/76 (93) 98 Intake and Output 04/07/19 04/08/19 19:00 07:00 Intake Total 110 ml Balance 110 ml IV Total 110 ml # Voids 3 3 Height (Feet): 5 Height (Inches): 0.00 Weight (Pounds): 112 General Appearance: no apparent distress Objective no change El Clark MD Apr 08, 2019 10:11
[2019-04-08 12:00] VITALS: BP 122/70
--- NOTE | 2019-04-08 12:56 | NUR ---
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 99.5 HR 98 RR 18 B/P 127/66 IS: CEFEPIME IV FLAGYL PO PROTONIX PO HEPARIN SUBC MED/SURG STATUS
--- NOTE | 2019-04-08 14:34 | Infectious Diseases Prog Note ---
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 Right adnexal region irregular fluid collection, corresponding to findings reported on recent CT scan. This is contiguous with an immediately adjacent segment of bowel.This likewise corresponds to findings on recent CT. Note that the fluid collection and extent are better delineated on the prior study. Nonvisualized left ovary -CT abd/p: Markedly thickened and fluid-filled endometrium. 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 Complex multilobulated fluid collection with areas of enhancing soft tissue in the right adnexal region. This measures 5.5 x 7 x 3.9 cm. There is also a second tiny collection adjacent to the distal rectum. One possible etiology is, given the above finding, a tubo-ovarian abscess, related to retrograde propagation of endometritis. A second possibility is that this represents acute diverticulitis with peridiverticular abscess, given the close relationship with the distal sigmoid colon. A third possibility is this represents an abscess related to infected pelvic fluid from the prior gastric perforation, as the previous exam did demonstrate a small amount of free fluid in the pelvis. Finally, given the presence of the appendix (which isprominent in caliber) at the edge of the collection, this could represent perforated acute distal appendicitis. However, this is deemed less likely. Evidence of interim repair of previously demonstrated perforated gastric ulcer. No evidence of contrast leakage. No abnormal fluid collection at the operative site. Colonic diverticulosis. Slight rim enhancement of the gallbladder. Slight pericholecystic fluid. However, the gallbladder is nondistended, so doubt significance of this. Bilateral basilar pulmonary parenchymal groundglass opacity, likely on the basis of mild pulmonary edema Fever, SP Leukocytosis, recurrent, resolved-2 ry to above -9/4 Bcx Neg -03/22 CXR: Cardiomegaly.Bilateral basilar atelectasis or scarring. Decreased left pleural fluid u/a neg -9/2 BCx Neg -03/20 CXR: Subsegmental atelectasis versus infiltrate in the left lung base. -03/19 u/a neg Cdiff neg -v/ duplex no DVT Perforated pre-pyloric gastric ulcer -03/15 s/p UGI series: Negative for postoperative leak -03/10 SP 03/10 SP Exploratory Laparotomy, Abdominal washout. Partial omentectomy. Shane patch for repair of perforated pre-pyloric ulcer. -03/10 CT abd/p: Free intraperitoneal gas. Etiology not completely certain, but gas within and extending from the anterior gastric antral wall is suspicious for a perforated gastric ulcer. Perforated descending colon diverticulitis also possible but deemed much less likely. Free intraperitoneal fluid, presumably related to the above. Fatty liver. Basilar pulmonary parenchymal groundglass opacities. This could indicate pulmonary edema, among other possibilities. Subcentimeter low-attenuation renal lesions, too small to characterize, most likely benign simple cyst. No further follow-up necessary. 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 Acute encephalopathy -CT head: Chronic and age-related changes. Negative for acute intracranial bleed or mass effect VDRF, post-op; extubated 03/12 DARRON, SP Dm2 HTN Plan: -Cont Cefepime #21 and PO Flagyl #16 for intraabdominal abscess while in house -Discussed with Dr Sheth. It is unclear origin of abscess if complication from prior gastric perforation vs gynecological origin vs sigmoid related. Patient no longer febrile and it is felt she is high risk for surgical re-exploration. - Will recommend a total 6 weeks of IV ertapenem; end date 05/01/19 - Monitor weekly CBC, CMP - Would not recommend PO abx in this case lack of cultures and unclear nature of the infection. -03/22 SP Fluconazole #10 -03/15 SP Zosyn #6 -03/10 SP IV Vancomycin #1, Ancef x1 -f/u cx -Monitor CBC/CMP, temperatures -Sx f/u -wound care per surgical team -aspiration precautions Subjective Allergies: Coded Allergies: No Known Allergies (Unverified , 03/10/19) Subjective Afebrile No Leukcoytosis Objective Vital Signs Last 24 Hour Vital Signs Date Time Temp Pulse Resp B/P (MAP) Pulse Ox O2 Delivery O2 Flow Rate FiO2 04/08/19 12:00 98.0 93 19 122/70 (87) 97 04/08/19 09:00 Room Air 04/08/19 08:00 97.6 103 17 132/75 (94) 95 04/08/19 04:00 99.5 98 18 127/66 (86) 98 04/08/19 00:00 99.1 92 18 142/83 (102) 96 04/07/19 21:00 Room Air 04/07/19 20:00 99.0 90 16 150/79 (102) 95 04/07/19 16:00 98.4 84 18 128/70 (89) 99 Height (Feet): 5 Height (Inches): 0.00 Weight (Pounds): 112 Objective General: NAD, Satting well Head: NCAT, MMM, EOMI Lungs: CTAB, No W Heart: regular rate and rhythm, S1, S2 Abdomen: soft, NT, ND Bowel sounds normal.s Current Medications Medications (Trade) Dose Ordered Sig/Shantelle Route PRN Reason Start Time Stop Time Status Last Admin Dose Admin Acetaminophen (Tylenol) 650 mg Q4H PRN ORAL Mild Pain/Temp > 100.5 03/19/19 16:00 04/18/19 15:59 03/31/19 21:22 Barium Sulfate (Readi-Cat 2) 450 ml PRN PRN ORAL Radiology Procedure 03/27/19 13:30 04/26/19 13:29 Cefepime HCl 1 gm/ Dextrose 55 ml @ 110 mls/hr DAILY IVPB 03/30/19 09:00 04/12/19 23:59 04/08/19 08:45 Dextrose (Dextrose 50%) 25 ml Q30M PRN IV Hypoglycemia 03/23/19 08:45 04/22/19 08:44 Dextrose (Dextrose 50%) 50 ml Q30M PRN IV Hypoglycemia 03/23/19 08:45 04/22/19 08:44 Glipizide (Glucotrol) 5 mg BIAC ORAL 03/21/19 16:30 04/20/19 16:29 04/07/19 17:25 Heparin Sodium (Porcine) (Heparin 5000 units/ml) 5,000 units EVERY 12 HOURS SUBQ 03/13/19 21:00 04/09/19 20:59 04/08/19 08:46 Insulin Aspart (NovoLOG) BEFORE MEALS AND HS SUBQ 03/23/19 11:30 04/22/19 11:29 04/08/19 12:11 Magnesium Hydroxide (Mom) 30 ml DAILYPRN PRN ORAL Constipation 04/01/19 17:30 05/01/19 17:29 04/01/19 17:42 Metronidazole (Flagyl) 500 mg Q8HR ORAL 03/23/19 14:00 04/12/19 23:59 04/08/19 13:46 Nateglinide (Starlix) 120 mg TIAC ORAL 03/23/19 11:30 04/22/19 11:29 04/08/19 12:10 Ondansetron HCl (Zofran) 4 mg Q6H PRN IVP Nausea & Vomiting 03/13/19 19:15 04/09/19 13:14 03/31/19 09:06 Pantoprazole (Protonix) 40 mg EVERY 12 HOURS ORAL 03/16/19 21:00 04/15/19 20:59 04/08/19 08:44 Andrea Quiroz MD Apr 08, 2019 14:34
[2019-04-08] MEDS ORDERED: NS 500ML ONE (14:55)
[2019-04-08] MEDS ORDERED: Tubing IV Secondary IV ONE (14:55)
[2019-04-08 16:00] VITALS: BP 115/70
--- NOTE | 2019-04-08 19:04 | Internal Med Progress Note ---
Subjective Physician Name Marcos Silva Attending Physician Marcos Silva MD Current Medications Medications (Trade) Dose Ordered Sig/Shantelle Route PRN Reason Start Time Stop Time Status Last Admin Dose Admin Acetaminophen (Tylenol) 650 mg Q4H PRN ORAL Mild Pain/Temp > 100.5 03/19/19 16:00 04/18/19 15:59 03/31/19 21:22 Barium Sulfate (Readi-Cat 2) 450 ml PRN PRN ORAL Radiology Procedure 03/27/19 13:30 04/26/19 13:29 Cefepime HCl 1 gm/ Dextrose 55 ml @ 110 mls/hr DAILY IVPB 03/30/19 09:00 04/12/19 23:59 04/08/19 08:45 Dextrose (Dextrose 50%) 25 ml Q30M PRN IV Hypoglycemia 03/23/19 08:45 04/22/19 08:44 Dextrose (Dextrose 50%) 50 ml Q30M PRN IV Hypoglycemia 03/23/19 08:45 04/22/19 08:44 Glipizide (Glucotrol) 5 mg BIAC ORAL 03/21/19 16:30 04/20/19 16:29 04/08/19 16:58 Heparin Sodium (Porcine) (Heparin 5000 units/ml) 5,000 units EVERY 12 HOURS SUBQ 03/13/19 21:00 04/09/19 20:59 04/08/19 08:46 Insulin Aspart (NovoLOG) BEFORE MEALS AND HS SUBQ 03/23/19 11:30 04/22/19 11:29 04/08/19 16:59 Magnesium Hydroxide (Mom) 30 ml DAILYPRN PRN ORAL Constipation 04/01/19 17:30 05/01/19 17:29 04/01/19 17:42 Metronidazole (Flagyl) 500 mg Q8HR ORAL 03/23/19 14:00 04/12/19 23:59 04/08/19 13:46 Nateglinide (Starlix) 120 mg TIAC ORAL 03/23/19 11:30 04/22/19 11:29 04/08/19 16:58 Ondansetron HCl (Zofran) 4 mg Q6H PRN IVP Nausea & Vomiting 03/13/19 19:15 04/09/19 13:14 03/31/19 09:06 Pantoprazole (Protonix) 40 mg EVERY 12 HOURS ORAL 03/16/19 21:00 04/15/19 20:59 04/08/19 08:44 Allergies: Coded Allergies: No Known Allergies (Unverified , 03/10/19) Subjective awake, alert, responsive, sitting up in the chair, denies any abdominal pain. Objective Last Vital Signs Date Time Temp Pulse Resp B/P (MAP) Pulse Ox O2 Delivery O2 Flow Rate FiO2 04/08/19 16:00 98.4 67 19 115/70 (85) 95 04/08/19 09:00 Room Air Intake and Output 04/07/19 04/08/19 19:00 07:00 Intake Total 110 ml Balance 110 ml IV Total 110 ml # Voids 3 3 Objective General: No acute distress, awake and alert HEENT: NCAT, sclera anicteric, PERRL, EOMI. Neck: Supple, no significant jugular venous distention, Lungs: clear to auscultation bilaterally, no Wheeze or Rales. Heart: Regular rate and rhythm, normal S1/S2, no murmur Abdomen: soft, not tender, Not distended. midline surgical incision intact. Extremities: No Cyanosis , clubbing or edema. Neuro: A&O x 3, Able to move all extremities Skin: warm, no rash. Assessment/Plan Assessment/Plan ASSESSMENT: This is an 84-year-old female. 1. Perforated abdominal viscus S/P Exploratory laparotomy, Partial omentectomy, and Shane patch for repair of perforated pre-pyloric ulcer (03/10/2019). 2. Acute respiratory Failure. 3. Nausea with vomiting. 4. Diabetes type 2. 5. Hypertension. TREATMENT: 1. Perforated abdominal viscus. A General Surgery consultation has been obtained with Dr. Sheth. S/P Exploratory laparotomy, Partial omentectomy, and Shane patch for repair of perforated pre-pyloric ulcer (03/10/2019). 2. Diabetes type 2. NovoLog sliding scale has been instituted. 3. Hypertension. The patient is currently hypotensive. 4. Respiratory failure. The patient is currently intubated in the intensive care unit. A Pulmonary consultation has been obtained with Dr. Bibiana Pennington. Abx: total 6 weeks of IV ertapenem; end date 05/01/19; DC planning . Marcos Silva MD Apr 08, 2019 19:04
--- NOTE | 2019-04-08 19:35 | NUR ---
HAND-OFF: Report given to SARAI Spivey. Pt is stable.
[2019-04-08 20:00] VITALS: BP 127/80
--- NOTE | 2019-04-08 20:03 | NUR ---
NURSE'S NOTES: RECEIVED PATIENT AWAKE AND ALERT, SITTING ON A CHAIR WITH FAMILY BY BEDSIDE FOR FAMILIAL SUPPORT. DENIES ANY PAIN OR DISTRESS. BM REPORTED TODAY. PLAN OF CARE DISCUSSED. WILL CONTINUE TO MONITOR.
[2019-04-09] VITALS: BP 127/70
[2019-04-09 04:00] VITALS: BP 116/74
[2019-04-09] MEDS: metroNIDAZOLE 500mg tab ORAL SCH ×3 (06:00→21:36)
[2019-04-09] MEDS: GlipiZIDE 5mg tab ORAL SCH ×2 (06:01→16:46)
[2019-04-09] MEDS: NovoLOG Insulin Flexpen SUBQ SCH ×4 (06:30→20:42)
--- NOTE | 2019-04-09 07:10 | NUR ---
HAND-OFF: Report given to SUKHJINDER MOON
[2019-04-09 08:00] VITALS: BP 131/72
--- NOTE | 2019-04-09 08:00 | NUR ---
NURSE NOTES: Received report Nena MOON, pt a/a/o x4 seating in chair with no signs of distress or other issues at this time. IV on the right FA gauge #22 heplock. pt's family at bedside. call light within reach, bed in lowest position, side rales upx2. I will f/u as needed.
[2019-04-09] MEDS: Cefepime HCl 1 GM in D5W 55 ML IVPB SCH (09:16)
[2019-04-09] MEDS: Heparin 5000 units/ml inj SUBQ SCH (09:19)
--- NOTE | 2019-04-09 09:37 | Nephrology Progress Note ---
Assessment/Plan Problem List: (1) Perforated abdominal viscus (2) Hypokalemia (3) Hypomagnesemia (4) Diabetes mellitus (5) Anemia Assessment WBC rising Post lap on 03/10 Low K Low Phos Low Mag Anemia DM h/o HTN Plan add oral hypoglycemics for high BS high K likely hemolysis resolved DC IV mag supplement change all to orals Mag and K and Phos IV as needed Anemia claudio Keep BP and BS in check per orders DC planning Subjective ROS Limited/Unobtainable: No Objective Objective Last 24 Hour Vital Signs Date Time Temp Pulse Resp B/P (MAP) Pulse Ox O2 Delivery O2 Flow Rate FiO2 04/09/19 08:00 97.7 74 16 131/72 (91) 98 04/09/19 04:00 97.9 92 16 116/74 (88) 99 04/09/19 00:00 98.9 86 16 127/70 (89) 97 04/08/19 21:00 Room Air 04/08/19 20:00 98.9 85 16 127/80 (96) 98 04/08/19 16:00 98.4 67 19 115/70 (85) 95 04/08/19 12:00 98.0 93 19 122/70 (87) 97 Intake and Output 04/08/19 04/09/19 18:59 06:59 Intake Total 775 ml Balance 775 ml Intake Oral 720 ml IV Total 55 ml # Voids 3 2 # Bowel Movements 1 Height (Feet): 5 Height (Inches): 0.00 Weight (Pounds): 112 General Appearance: no apparent distress Objective no change El Clark MD Apr 09, 2019 09:37
[2019-04-09 12:00] VITALS: BP 131/70
--- NOTE | 2019-04-09 14:00 | Internal Med Progress Note ---
Subjective Date of Service: Apr 09, 2019 Physician Name Zen Paige Attending Physician Marcos Silva MD Current Medications Medications (Trade) Dose Ordered Sig/Shantelle Route PRN Reason Start Time Stop Time Status Last Admin Dose Admin Acetaminophen (Tylenol) 650 mg Q4H PRN ORAL Mild Pain/Temp > 100.5 03/19/19 16:00 04/18/19 15:59 03/31/19 21:22 Barium Sulfate (Readi-Cat 2) 450 ml PRN PRN ORAL Radiology Procedure 03/27/19 13:30 04/26/19 13:29 Cefepime HCl 1 gm/ Dextrose 55 ml @ 110 mls/hr DAILY IVPB 03/30/19 09:00 04/12/19 23:59 04/09/19 09:16 Dextrose (Dextrose 50%) 25 ml Q30M PRN IV Hypoglycemia 03/23/19 08:45 04/22/19 08:44 Dextrose (Dextrose 50%) 50 ml Q30M PRN IV Hypoglycemia 03/23/19 08:45 04/22/19 08:44 Glipizide (Glucotrol) 5 mg BIAC ORAL 03/21/19 16:30 04/20/19 16:29 04/09/19 06:01 Heparin Sodium (Porcine) (Heparin 5000 units/ml) 5,000 units EVERY 12 HOURS SUBQ 03/13/19 21:00 04/09/19 20:59 04/09/19 09:19 Insulin Aspart (NovoLOG) BEFORE MEALS AND HS SUBQ 03/23/19 11:30 04/22/19 11:29 04/09/19 11:43 Magnesium Hydroxide (Mom) 30 ml DAILYPRN PRN ORAL Constipation 04/01/19 17:30 05/01/19 17:29 04/01/19 17:42 Metronidazole (Flagyl) 500 mg Q8HR ORAL 03/23/19 14:00 04/12/19 23:59 04/09/19 13:27 Nateglinide (Starlix) 120 mg TIAC ORAL 03/23/19 11:30 04/22/19 11:29 04/09/19 11:43 Pantoprazole (Protonix) 40 mg EVERY 12 HOURS ORAL 03/16/19 21:00 04/15/19 20:59 04/09/19 09:16 Allergies: Coded Allergies: No Known Allergies (Unverified , 03/10/19) ROS Limited/Unobtainable: No Constitutional: Reports: no symptoms HEENT: Reports: no symptoms Cardiovascular: Reports: no symptoms Respiratory: Reports: no symptoms Gastrointestinal/Abdominal: Reports: abdominal pain Genitourinary: Reports: no symptoms Neurologic/Psychiatric: Reports: no symptoms Subjective 84 YO F admitted with abdominal pain. S/P exploratory laparotomy 03/10/19. Now intra-abdominal abscess. Cover for [facility] Med-Dr Silva. Objective Last Vital Signs Date Time Temp Pulse Resp B/P (MAP) Pulse Ox O2 Delivery O2 Flow Rate FiO2 04/09/19 12:00 98.5 89 17 131/70 (90) 97 04/09/19 09:00 Room Air Intake and Output 04/08/19 04/09/19 19:00 07:00 Intake Total 775 ml Balance 775 ml Intake Oral 720 ml IV Total 55 ml # Voids 3 2 # Bowel Movements 1 Objective PHYSICAL EXAMINATION: GENERAL: The patient is a well developed, well nourished female who is intubated and sedated. HEENT: Eyes, pupils equal and responsive to light and accommodation. Extraocular movements are intact. NECK: Supple without lymphadenopathy. CHEST: Nasc canula; Few diffuse wheezes bilaterally. Otherwise, without wheezes or rales. CARDIOVASCULAR: Regular rhythm rate. S1-S2 are normal without murmurs, rubs, or gallops. ABDOMEN: NGT; Soft, nontender with decreased bowel sounds. No evidence of hepatosplenomegaly. no rebound or guarding noted. EXTREMITIES: Negative for clubbing, cyanosis, edema. RECTAL/GENITAL: Not performed. NEUROLOGIC: Cranial nerves II through XII are grossly intact without focal deficits. Assessment/Plan Assessment/Plan ASSESSMENT: This is an 84-year-old female. 1. Perforated gastric ulcer 2. Abdominal pain. 3. Nausea with vomiting. 4. Diabetes type 2. 5. Hypertension. 6. Post Op fever-resolved 7. Leukocytosis 8. Intraabdominal abscess TREATMENT: 1. Perforated gastric ulcer. A General Surgery consultation has been obtained with Dr. Sheth. S/P exploratory laparotomy 03/10/19=perforated Pre pyloric ulcer. Tolerating regular diet; NGT discontinued per surgery 2. Diabetes type 2. NovoLog sliding scale has been instituted. 3. Hypertension. The patient is currently hypotensive. 4. Respiratory failure. S/P extubation 03/12/19. A Pulmonary consultation has been obtained with Dr. Bibiana Pennington. 5. Med/surg 6. ABX=Ertapenem for 6 weeks-end date 05/01/19 per ID 7. Surgical intervention on hold for intraabdominal abscess-see surgery note. Will require 6 weeks of ertapenem per ID 8. WBC now normal; Discharge planning Zen Paige MD Apr 09, 2019 14:00
[2019-04-09 16:00] VITALS: BP 125/74
--- NOTE | 2019-04-09 18:56 | NUR ---
HAND-OFF: Report given to Allyssa MOON, pt in stable condition. - During my shift pt was able to walk around the unit x2 with the use of the FWW and staff assistance.
--- NOTE | 2019-04-09 19:34 | NUR ---
Nurse's notes: received patient awake, alert and oriented, sitting on a chair with no visible S/S of distress; denies pain; walker and call light within easy reach; educated patient to call for assistance when ambulating to the bathroom. plan of care to be continued this shift. will continue to monitor.
[2019-04-09 19:57] VITALS: BP 135/74
[2019-04-10] VITALS (7 sets, daily range): BP systolic 118–137; BP diastolic 64–76
[2019-04-10] MEDS: GlipiZIDE 5mg tab ORAL SCH ×2 (05:48→16:38)
[2019-04-10] MEDS: NovoLOG Insulin Flexpen SUBQ SCH ×4 (05:48→20:23)
[2019-04-10] MEDS: metroNIDAZOLE 500mg tab ORAL SCH ×3 (05:48→21:34)
--- NOTE | 2019-04-10 06:54 | NUR ---
nurse's notes: no other significant changes noted this shift; no complaints received; no s/s of hypoglycemia at this time. no episodes of falls, trauma or new skin issues. will continue to monitor.
--- NOTE | 2019-04-10 07:53 | NUR ---
NURSE NOTES: received report from SARAI Spivey. patient in bed. sleeping. no respiratory distress noted. no facial grimacing. IV RFA22 hep lock intact. family members at the bed side, sleeping. bed in the lowest position and locked. call light within reach. will continue to provide plan of care.
[2019-04-10] MEDS: Cefepime HCl 1 GM in D5W 55 ML IVPB SCH (09:22)
--- NOTE | 2019-04-10 10:31 | Infectious Diseases Prog Note ---
Assessment/Plan Assessment/Plan Probable Sepsis- 2ry to likely intraabdominal abscess- ?source (post-op complication vs obstetrics and gynecology professor or sigmoid origin) -03/29 Pelvic/transvaginal US: Partial septate uterus with distended fluid- filled endometrium, also demonstrated on recent CT scan. Right adnexal region irregular fluid collection, corresponding to findings reported on recent CT scan. This is contiguous with an immediately adjacent segment of bowel.This likewise corresponds to findings on recent CT. Note that the fluid collection and extent are better delineated on the prior study. Nonvisualized left ovary -CT abd/p: Markedly thickened and fluid-filled endometrium. 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 Complex multilobulated fluid collection with areas of enhancing soft tissue in the right adnexal region. This measures 5.5 x 7 x 3.9 cm. There is also a second tiny collection adjacent to the distal rectum. One possible etiology is, given the above finding, a tubo-ovarian abscess, related to retrograde propagation of endometritis. A second possibility is that this represents acute diverticulitis with peridiverticular abscess, given the close relationship with the distal sigmoid colon. A third possibility is this represents an abscess related to infected pelvic fluid from the prior gastric perforation, as the previous exam did demonstrate a small amount of free fluid in the pelvis. Finally, given the presence of the appendix (which isprominent in caliber) at the edge of the collection, this could represent perforated acute distal appendicitis. However, this is deemed less likely. Evidence of interim repair of previously demonstrated perforated gastric ulcer. No evidence of contrast leakage. No abnormal fluid collection at the operative site. Colonic diverticulosis. Slight rim enhancement of the gallbladder. Slight pericholecystic fluid. However, the gallbladder is nondistended, so doubt significance of this. Bilateral basilar pulmonary parenchymal groundglass opacity, likely on the basis of mild pulmonary edema Fever, SP Leukocytosis, recurrent, resolved-2 ry to above -9/4 Bcx Neg -03/22 CXR: Cardiomegaly.Bilateral basilar atelectasis or scarring. Decreased left pleural fluid u/a neg -9/2 BCx Neg -03/20 CXR: Subsegmental atelectasis versus infiltrate in the left lung base. -03/19 u/a neg Cdiff neg -v/ duplex no DVT Perforated pre-pyloric gastric ulcer -03/15 s/p UGI series: Negative for postoperative leak -03/10 SP 03/10 SP Exploratory Laparotomy, Abdominal washout. Partial omentectomy. Shane patch for repair of perforated pre-pyloric ulcer. -03/10 CT abd/p: Free intraperitoneal gas. Etiology not completely certain, but gas within and extending from the anterior gastric antral wall is suspicious for a perforated gastric ulcer. Perforated descending colon diverticulitis also possible but deemed much less likely. Free intraperitoneal fluid, presumably related to the above. Fatty liver. Basilar pulmonary parenchymal groundglass opacities. This could indicate pulmonary edema, among other possibilities. Subcentimeter low-attenuation renal lesions, too small to characterize, most likely benign simple cyst. No further follow-up necessary. 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 Acute encephalopathy -CT head: Chronic and age-related changes. Negative for acute intracranial bleed or mass effect VDRF, post-op; extubated 03/12 DARRON, SP Dm2 HTN Plan: -Cont Cefepime #23 and PO Flagyl #18 for intraabdominal abscess while in house -Discussed with Dr Sheth. It is unclear origin of abscess if complication from prior gastric perforation vs gynecological origin vs sigmoid related. Patient no longer febrile and it is felt she is high risk for surgical re-exploration. - Will recommend a total 6 weeks of IV ertapenem; end date 05/01/19 - Monitor weekly CBC, CMP - Would not recommend PO abx in this case lack of cultures and unclear nature of the infection. -03/22 SP Fluconazole #10 -03/15 SP Zosyn #6 -03/10 SP IV Vancomycin #1, Ancef x1 -f/u cx -Monitor CBC/CMP, temperatures -Sx f/u -wound care per surgical team -aspiration precautions Subjective Allergies: Coded Allergies: No Known Allergies (Unverified , 03/10/19) Subjective Afebrile No Leukcoytosis Satting well Objective Vital Signs Last 24 Hour Vital Signs Date Time Temp Pulse Resp B/P (MAP) Pulse Ox O2 Delivery O2 Flow Rate FiO2 04/10/19 09:00 Room Air 04/10/19 08:00 98.7 81 18 120/69 (86) 97 04/10/19 04:00 98.9 88 18 130/76 (94) 96 04/10/19 00:19 99.0 96 18 131/70 (90) 100 04/09/19 21:00 Room Air 04/09/19 19:57 98.6 97 16 135/74 (94) 98 04/09/19 16:00 98.1 94 16 125/74 (91) 97 04/09/19 12:00 98.5 89 17 131/70 (90) 97 Height (Feet): 5 Height (Inches): 0.00 Weight (Pounds): 112 Objective General: NAD Head: NCAT, MMM, EOMI Lungs: CTAB, No W Heart: regular rate and rhythm, S1, S2 Abdomen: soft, NT, ND Bowel sounds normal.s Current Medications Medications (Trade) Dose Ordered Sig/Shantelle Route PRN Reason Start Time Stop Time Status Last Admin Dose Admin Acetaminophen (Tylenol) 650 mg Q4H PRN ORAL Mild Pain/Temp > 100.5 03/19/19 16:00 04/18/19 15:59 03/31/19 21:22 Barium Sulfate (Readi-Cat 2) 450 ml PRN PRN ORAL Radiology Procedure 03/27/19 13:30 04/26/19 13:29 Cefepime HCl 1 gm/ Dextrose 55 ml @ 110 mls/hr DAILY IVPB 03/30/19 09:00 04/12/19 23:59 04/10/19 09:22 Dextrose (Dextrose 50%) 25 ml Q30M PRN IV Hypoglycemia 03/23/19 08:45 04/22/19 08:44 Dextrose (Dextrose 50%) 50 ml Q30M PRN IV Hypoglycemia 03/23/19 08:45 04/22/19 08:44 Glipizide (Glucotrol) 5 mg BIAC ORAL 03/21/19 16:30 04/20/19 16:29 04/10/19 05:48 Insulin Aspart (NovoLOG) BEFORE MEALS AND HS SUBQ 03/23/19 11:30 04/22/19 11:29 04/09/19 20:42 Magnesium Hydroxide (Mom) 30 ml DAILYPRN PRN ORAL Constipation 04/01/19 17:30 05/01/19 17:29 04/01/19 17:42 Metronidazole (Flagyl) 500 mg Q8HR ORAL 03/23/19 14:00 04/12/19 23:59 04/10/19 05:48 Nateglinide (Starlix) 120 mg TIAC ORAL 03/23/19 11:30 04/22/19 11:29 04/10/19 05:48 Pantoprazole (Protonix) 40 mg EVERY 12 HOURS ORAL 03/16/19 21:00 04/15/19 20:59 04/10/19 09:21 Andrea Quiroz MD Apr 10, 2019 10:31
--- NOTE | 2019-04-10 17:17 | Internal Med Progress Note ---
Subjective Date of Service: Apr 10, 2019 Physician Name Zen Paige Attending Physician Marcos Silva MD Current Medications Medications (Trade) Dose Ordered Sig/Shantelle Route PRN Reason Start Time Stop Time Status Last Admin Dose Admin Acetaminophen (Tylenol) 650 mg Q4H PRN ORAL Mild Pain/Temp > 100.5 03/19/19 16:00 04/18/19 15:59 03/31/19 21:22 Barium Sulfate (Readi-Cat 2) 450 ml PRN PRN ORAL Radiology Procedure 03/27/19 13:30 04/26/19 13:29 Cefepime HCl 1 gm/ Dextrose 55 ml @ 110 mls/hr DAILY IVPB 03/30/19 09:00 04/12/19 23:59 04/10/19 09:22 Dextrose (Dextrose 50%) 25 ml Q30M PRN IV Hypoglycemia 03/23/19 08:45 04/22/19 08:44 Dextrose (Dextrose 50%) 50 ml Q30M PRN IV Hypoglycemia 03/23/19 08:45 04/22/19 08:44 Glipizide (Glucotrol) 5 mg BIAC ORAL 03/21/19 16:30 04/20/19 16:29 04/10/19 16:38 Insulin Aspart (NovoLOG) BEFORE MEALS AND HS SUBQ 03/23/19 11:30 04/22/19 11:29 04/10/19 16:40 Magnesium Hydroxide (Mom) 30 ml DAILYPRN PRN ORAL Constipation 04/01/19 17:30 05/01/19 17:29 04/01/19 17:42 Metronidazole (Flagyl) 500 mg Q8HR ORAL 03/23/19 14:00 04/12/19 23:59 04/10/19 13:46 Nateglinide (Starlix) 120 mg TIAC ORAL 03/23/19 11:30 04/22/19 11:29 04/10/19 16:38 Pantoprazole (Protonix) 40 mg EVERY 12 HOURS ORAL 03/16/19 21:00 04/15/19 20:59 04/10/19 09:21 Allergies: Coded Allergies: No Known Allergies (Unverified , 03/10/19) ROS Limited/Unobtainable: No Constitutional: Reports: no symptoms HEENT: Reports: no symptoms Cardiovascular: Reports: no symptoms Respiratory: Reports: no symptoms Gastrointestinal/Abdominal: Reports: no symptoms Genitourinary: Reports: no symptoms Neurologic/Psychiatric: Reports: no symptoms Subjective 84 YO F admitted with abdominal pain. S/P exploratory laparotomy 03/10/19. Now intra-abdominal abscess. Cover for Int Med-Dr Silva. Objective Last Vital Signs Date Time Temp Pulse Resp B/P (MAP) Pulse Ox O2 Delivery O2 Flow Rate FiO2 04/10/19 16:00 98.5 89 18 118/71 (87) 96 04/10/19 09:00 Room Air Intake and Output 04/09/19 04/10/19 19:00 07:00 Intake Total 500 ml 300 ml Balance 500 ml 300 ml Intake Oral 500 ml 300 ml # Voids 4 3 Objective PHYSICAL EXAMINATION: GENERAL: The patient is a well developed, well nourished female who is intubated and sedated. HEENT: Eyes, pupils equal and responsive to light and accommodation. Extraocular movements are intact. NECK: Supple without lymphadenopathy. CHEST: Nasc canula; Few diffuse wheezes bilaterally. Otherwise, without wheezes or rales. CARDIOVASCULAR: Regular rhythm rate. S1-S2 are normal without murmurs, rubs, or gallops. ABDOMEN: NGT; Soft, nontender with decreased bowel sounds. No evidence of hepatosplenomegaly. no rebound or guarding noted. EXTREMITIES: Negative for clubbing, cyanosis, edema. RECTAL/GENITAL: Not performed. NEUROLOGIC: Cranial nerves II through XII are grossly intact without focal deficits. Assessment/Plan Assessment/Plan ASSESSMENT: This is an 84-year-old female. 1. Perforated gastric ulcer 2. Abdominal pain. 3. Nausea with vomiting. 4. Diabetes type 2. 5. Hypertension. 6. Post Op fever-resolved 7. Leukocytosis 8. Intraabdominal abscess TREATMENT: 1. Perforated gastric ulcer. A General Surgery consultation has been obtained with Dr. Sheth. S/P exploratory laparotomy 03/10/19=perforated Pre pyloric ulcer. Tolerating regular diet; NGT discontinued per surgery 2. Diabetes type 2. NovoLog sliding scale has been instituted. 3. Hypertension. The patient is currently hypotensive. 4. Respiratory failure. S/P extubation 03/12/19. A Pulmonary consultation has been obtained with Dr. Bibiana Pennington. 5. Med/surg 6. ABX=Ertapenem for 6 weeks-end date 05/01/19 per ID 7. Surgical intervention on hold for intraabdominal abscess-see surgery note. Will require 6 weeks of ertapenem per ID 8. WBC now normal; Discharge planning Zen Paige MD Apr 10, 2019 17:16
--- NOTE | 2019-04-10 18:53 | NUR ---
HAND-OFF: Report given to SARAI Spivey.
--- NOTE | 2019-04-10 19:33 | NUR ---
nurse's notes: received patient awake, alert and oriented, sitting on a chair, watching tv; does not exhibit any s/s of distress; denies pain; walker,water and call light within reach; reminded patient to call rn for assistance
[2019-04-11 04:00] VITALS: BP 122/51
[2019-04-11] MEDS: NovoLOG Insulin Flexpen SUBQ SCH ×4 (05:46→20:31)
[2019-04-11] MEDS: metroNIDAZOLE 500mg tab ORAL SCH ×3 (05:46→22:10)
[2019-04-11] MEDS: GlipiZIDE 5mg tab ORAL SCH ×2 (05:46→16:54)
--- NOTE | 2019-04-11 07:30 | NUR ---
NURSE NOTES: Pt sitting in chair w/call light within reach and in no apparent distress. VSS, IV site intact/asymptomatic & H/L'd, and surgical dressing C/D/I. Pt A&Ox4 and has no concerns or complaints at this time. Will continue to monitor.
[2019-04-11 08:00] VITALS: BP 110/72
[2019-04-11] MEDS: Cefepime HCl 1 GM in D5W 55 ML IVPB SCH (08:09)
--- NOTE | 2019-04-11 09:51 | NUR ---
NURSE NOTES: Patient is sitting up in chair. Stable. Denies pain or SOB. Patient encouraged to use call light for assistance, verbalized understanding. Patient is in chair with call light within reach. Will continue to monitor.
--- NOTE | 2019-04-11 09:53 | NUR ---
HAND-OFF: Report given to SARAI Holm.
--- NOTE | 2019-04-11 10:31 | Pulmonology Progress Note ---
Assessment/Plan Problems: (1) Intra-abdominal abscess (2) Sepsis (3) Perforated abdominal viscus (4) S/P exploratory laparotomy (5) Septic shock (6) Diabetes mellitus (7) Peritonitis Assessment/Plan improving on regular diet needs 6 weeks of iv abx as per ID for intra abdominal abscess afebrile, WBC wnl ABC as per ID - they recommend a total 6 weeks of IV ertapenem; end date Subjective ROS Limited/Unobtainable: No Constitutional: Reports: no symptoms HEENT: Repors: no symptoms Allergies: Coded Allergies: No Known Allergies (Unverified , 03/10/19) Objective Last 24 Hour Vital Signs Date Time Temp Pulse Resp B/P (MAP) Pulse Ox O2 Delivery O2 Flow Rate FiO2 04/11/19 09:00 Room Air 04/11/19 08:00 97.1 66 17 110/72 (85) 97 04/11/19 04:00 98.4 84 17 122/51 (74) 95 04/10/19 23:49 99.4 87 16 137/66 (89) 97 04/10/19 21:00 Room Air 04/10/19 19:31 99.3 86 18 123/73 (90) 94 04/10/19 16:00 98.5 89 18 118/71 (87) 96 04/10/19 12:00 98.8 94 20 119/64 (82) 96 Intake and Output 04/10/19 04/11/19 18:59 06:59 Intake Total 410 ml 240 ml Balance 410 ml 240 ml Intake Oral 300 ml 240 ml IV Total 110 ml # Voids 2 3 General Appearance: WD/WN HEENT: normocephalic, anicteric Respiratory/Chest: chest wall non-tender, lungs clear Breasts: no masses Cardiovascular: regular rhythm Abdomen: soft, non tender, no mass Extremities: no clubbing Skin: no rash Current Medications Medications (Trade) Dose Ordered Sig/Shantelle Route PRN Reason Start Time Stop Time Status Last Admin Dose Admin Acetaminophen (Tylenol) 650 mg Q4H PRN ORAL Mild Pain/Temp > 100.5 03/19/19 16:00 04/18/19 15:59 03/31/19 21:22 Barium Sulfate (Readi-Cat 2) 450 ml PRN PRN ORAL Radiology Procedure 03/27/19 13:30 04/26/19 13:29 Cefepime HCl 1 gm/ Dextrose 55 ml @ 110 mls/hr DAILY IVPB 03/30/19 09:00 04/12/19 23:59 04/11/19 08:09 Dextrose (Dextrose 50%) 25 ml Q30M PRN IV Hypoglycemia 03/23/19 08:45 04/22/19 08:44 Dextrose (Dextrose 50%) 50 ml Q30M PRN IV Hypoglycemia 03/23/19 08:45 04/22/19 08:44 Glipizide (Glucotrol) 5 mg BIAC ORAL 03/21/19 16:30 04/20/19 16:29 04/11/19 05:46 Insulin Aspart (NovoLOG) BEFORE MEALS AND HS SUBQ 03/23/19 11:30 04/22/19 11:29 04/10/19 20:23 Magnesium Hydroxide (Mom) 30 ml DAILYPRN PRN ORAL Constipation 04/01/19 17:30 05/01/19 17:29 04/01/19 17:42 Metronidazole (Flagyl) 500 mg Q8HR ORAL 03/23/19 14:00 04/12/19 23:59 04/11/19 05:46 Nateglinide (Starlix) 120 mg TIAC ORAL 03/23/19 11:30 04/22/19 11:29 04/11/19 05:46 Pantoprazole (Protonix) 40 mg EVERY 12 HOURS ORAL 03/16/19 21:00 04/15/19 20:59 04/11/19 08:09 Bibiana Pennington MD Apr 11, 2019 10:31
--- NOTE | 2019-04-11 10:57 | Nephrology Progress Note ---
Assessment/Plan Problem List: (1) Perforated abdominal viscus (2) Hypokalemia (3) Hypomagnesemia (4) Diabetes mellitus (5) Anemia Assessment WBC rising Post lap on 03/10 Low K Low Phos Low Mag Anemia DM h/o HTN Plan add oral hypoglycemics for high BS high K likely hemolysis resolved DC IV mag supplement change all to orals Mag and K and Phos IV as needed Anemia claudio Keep BP and BS in check per orders DC planning Subjective ROS Limited/Unobtainable: No Objective Objective Last 24 Hour Vital Signs Date Time Temp Pulse Resp B/P (MAP) Pulse Ox O2 Delivery O2 Flow Rate FiO2 04/11/19 09:00 Room Air 04/11/19 08:00 97.1 66 17 110/72 (85) 97 04/11/19 04:00 98.4 84 17 122/51 (74) 95 04/10/19 23:49 99.4 87 16 137/66 (89) 97 04/10/19 21:00 Room Air 04/10/19 19:31 99.3 86 18 123/73 (90) 94 04/10/19 16:00 98.5 89 18 118/71 (87) 96 04/10/19 12:00 98.8 94 20 119/64 (82) 96 Intake and Output 04/10/19 04/11/19 18:59 06:59 Intake Total 410 ml 240 ml Balance 410 ml 240 ml Intake Oral 300 ml 240 ml IV Total 110 ml # Voids 2 3 Height (Feet): 5 Height (Inches): 0.00 Weight (Pounds): 112 General Appearance: no apparent distress Objective no change El Clark MD Apr 11, 2019 10:57
[2019-04-11 12:00] VITALS: BP 139/79
[2019-04-11 16:00] VITALS: BP 130/71
--- NOTE | 2019-04-11 18:43 | Internal Med Progress Note ---
Subjective Date of Service: Apr 11, 2019 Physician Name Zen Paige Attending Physician Marcos Silva MD Current Medications Medications (Trade) Dose Ordered Sig/Shantelle Route PRN Reason Start Time Stop Time Status Last Admin Dose Admin Acetaminophen (Tylenol) 650 mg Q4H PRN ORAL Mild Pain/Temp > 100.5 03/19/19 16:00 04/18/19 15:59 03/31/19 21:22 Barium Sulfate (Readi-Cat 2) 450 ml PRN PRN ORAL Radiology Procedure 03/27/19 13:30 04/26/19 13:29 Cefepime HCl 1 gm/ Dextrose 55 ml @ 110 mls/hr DAILY IVPB 03/30/19 09:00 04/12/19 23:59 04/11/19 08:09 Dextrose (Dextrose 50%) 25 ml Q30M PRN IV Hypoglycemia 03/23/19 08:45 04/22/19 08:44 Dextrose (Dextrose 50%) 50 ml Q30M PRN IV Hypoglycemia 03/23/19 08:45 04/22/19 08:44 Glipizide (Glucotrol) 5 mg BIAC ORAL 03/21/19 16:30 04/20/19 16:29 04/11/19 16:54 Insulin Aspart (NovoLOG) BEFORE MEALS AND HS SUBQ 03/23/19 11:30 04/22/19 11:29 04/11/19 12:06 Magnesium Hydroxide (Mom) 30 ml DAILYPRN PRN ORAL Constipation 04/01/19 17:30 05/01/19 17:29 04/01/19 17:42 Metronidazole (Flagyl) 500 mg Q8HR ORAL 03/23/19 14:00 04/12/19 23:59 04/11/19 13:31 Nateglinide (Starlix) 120 mg TIAC ORAL 03/23/19 11:30 04/22/19 11:29 04/11/19 16:54 Pantoprazole (Protonix) 40 mg EVERY 12 HOURS ORAL 03/16/19 21:00 04/15/19 20:59 04/11/19 08:09 Allergies: Coded Allergies: No Known Allergies (Unverified , 03/10/19) ROS Limited/Unobtainable: No Constitutional: Reports: no symptoms HEENT: Reports: no symptoms Cardiovascular: Reports: no symptoms Respiratory: Reports: no symptoms Gastrointestinal/Abdominal: Reports: no symptoms Genitourinary: Reports: no symptoms Neurologic/Psychiatric: Reports: no symptoms Subjective 84 YO F admitted with abdominal pain. S/P exploratory laparotomy 03/10/19. Now intra-abdominal abscess. Cover for Int Med-Dr Silva. Objective Last Vital Signs Date Time Temp Pulse Resp B/P (MAP) Pulse Ox O2 Delivery O2 Flow Rate FiO2 04/11/19 16:00 98.8 92 21 130/71 (90) 98 04/11/19 09:00 Room Air Intake and Output 04/10/19 04/11/19 19:00 07:00 Intake Total 410 ml 240 ml Balance 410 ml 240 ml Intake Oral 300 ml 240 ml IV Total 110 ml # Voids 2 3 Objective PHYSICAL EXAMINATION: GENERAL: The patient is a well developed, well nourished female who is intubated and sedated. HEENT: Eyes, pupils equal and responsive to light and accommodation. Extraocular movements are intact. NECK: Supple without lymphadenopathy. CHEST: Nasc canula; Few diffuse wheezes bilaterally. Otherwise, without wheezes or rales. CARDIOVASCULAR: Regular rhythm rate. S1-S2 are normal without murmurs, rubs, or gallops. ABDOMEN: NGT; Soft, nontender with decreased bowel sounds. No evidence of hepatosplenomegaly. no rebound or guarding noted. EXTREMITIES: Negative for clubbing, cyanosis, edema. RECTAL/GENITAL: Not performed. NEUROLOGIC: Cranial nerves II through XII are grossly intact without focal deficits. Assessment/Plan Assessment/Plan ASSESSMENT: This is an 84-year-old female. 1. Perforated gastric ulcer 2. Abdominal pain. 3. Nausea with vomiting. 4. Diabetes type 2. 5. Hypertension. 6. Post Op fever-resolved 7. Leukocytosis 8. Intraabdominal abscess TREATMENT: 1. Perforated gastric ulcer. A General Surgery consultation has been obtained with Dr. Sheth. S/P exploratory laparotomy 03/10/19=perforated Pre pyloric ulcer. Tolerating regular diet; NGT discontinued per surgery 2. Diabetes type 2. NovoLog sliding scale has been instituted. 3. Hypertension. The patient is currently hypotensive. 4. Respiratory failure. S/P extubation 03/12/19. A Pulmonary consultation has been obtained with Dr. Bibiana Pennington. 5. Med/surg 6. ABX=Ertapenem for 6 weeks-end date 05/01/19 per ID 7. Surgical intervention on hold for intraabdominal abscess-see surgery note. Will require 6 weeks of ertapenem per ID 8. WBC now normal; Discharge planning Zen Paige MD Apr 11, 2019 18:43
--- NOTE | 2019-04-11 19:09 | NUR ---
HAND-OFF: Report given to Allyssa MOON. Patient is stable.
[2019-04-11 19:59] VITALS: BP 134/75
--- NOTE | 2019-04-11 20:32 | Infectious Diseases Prog Note ---
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 Right adnexal region irregular fluid collection, corresponding to findings reported on recent CT scan. This is contiguous with an immediately adjacent segment of bowel.This likewise corresponds to findings on recent CT. Note that the fluid collection and extent are better delineated on the prior study. Nonvisualized left ovary -CT abd/p: Markedly thickened and fluid-filled endometrium. 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 Complex multilobulated fluid collection with areas of enhancing soft tissue in the right adnexal region. This measures 5.5 x 7 x 3.9 cm. There is also a second tiny collection adjacent to the distal rectum. One possible etiology is, given the above finding, a tubo-ovarian abscess, related to retrograde propagation of endometritis. A second possibility is that this represents acute diverticulitis with peridiverticular abscess, given the close relationship with the distal sigmoid colon. A third possibility is this represents an abscess related to infected pelvic fluid from the prior gastric perforation, as the previous exam did demonstrate a small amount of free fluid in the pelvis. Finally, given the presence of the appendix (which isprominent in caliber) at the edge of the collection, this could represent perforated acute distal appendicitis. However, this is deemed less likely. Evidence of interim repair of previously demonstrated perforated gastric ulcer. No evidence of contrast leakage. No abnormal fluid collection at the operative site. Colonic diverticulosis. Slight rim enhancement of the gallbladder. Slight pericholecystic fluid. However, the gallbladder is nondistended, so doubt significance of this. Bilateral basilar pulmonary parenchymal groundglass opacity, likely on the basis of mild pulmonary edema Fever, SP Leukocytosis, recurrent, resolved-2 ry to above -9/4 Bcx Neg -03/22 CXR: Cardiomegaly.Bilateral basilar atelectasis or scarring. Decreased left pleural fluid u/a neg -9/2 BCx Neg -/ CXR: Subsegmental atelectasis versus infiltrate in the left lung base. -03/19 u/a neg Cdiff neg -v/ duplex no DVT Perforated pre-pyloric gastric ulcer -03/15 s/p UGI series: Negative for postoperative leak -03/10 SP 03/10 SP Exploratory Laparotomy, Abdominal washout. Partial omentectomy. Shane patch for repair of perforated pre-pyloric ulcer. -03/10 CT abd/p: Free intraperitoneal gas. Etiology not completely certain, but gas within and extending from the anterior gastric antral wall is suspicious for a perforated gastric ulcer. Perforated descending colon diverticulitis also possible but deemed much less likely. Free intraperitoneal fluid, presumably related to the above. Fatty liver. Basilar pulmonary parenchymal groundglass opacities. This could indicate pulmonary edema, among other possibilities. Subcentimeter low-attenuation renal lesions, too small to characterize, most likely benign simple cyst. No further follow-up necessary. 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 Acute encephalopathy -CT head: Chronic and age-related changes. Negative for acute intracranial bleed or mass effect VDRF, post-op; extubated 03/12 DARRON, SP Dm2 HTN Plan: -Cont Cefepime #24 and PO Flagyl #19 for intraabdominal abscess while in house -Discussed with Dr Sheth. It is unclear origin of abscess if complication from prior gastric perforation vs gynecological origin vs sigmoid related. Patient no longer febrile and it is felt she is high risk for surgical re-exploration. - Will recommend a total 6 weeks of IV ertapenem; end date 05/01/19 - Monitor weekly CBC, CMP - Would not recommend PO abx in this case lack of cultures and unclear nature of the infection. -03/22 SP Fluconazole #10 -03/15 SP Zosyn #6 -03/10 SP IV Vancomycin #1, Ancef x1 -f/u cx -Monitor CBC/CMP, temperatures -Sx f/u -wound care per surgical team -aspiration precautions Subjective Allergies: Coded Allergies: No Known Allergies (Unverified , 03/10/19) Subjective comfortable Objective Vital Signs Last 24 Hour Vital Signs Date Time Temp Pulse Resp B/P (MAP) Pulse Ox O2 Delivery O2 Flow Rate FiO2 04/11/19 19:59 99.1 92 18 134/75 (94) 93 04/11/19 16:00 98.8 92 21 130/71 (90) 98 04/11/19 12:00 98.1 91 17 139/79 (99) 99 04/11/19 09:00 Room Air 04/11/19 08:00 97.1 66 17 110/72 (85) 97 04/11/19 04:00 98.4 84 17 122/51 (74) 95 04/10/19 23:49 99.4 87 16 137/66 (89) 97 04/10/19 21:00 Room Air Height (Feet): 5 Height (Inches): 0.00 Weight (Pounds): 112 HEENT: anicteric Respiratory/Chest: normal breath sounds Cardiovascular: regular rhythm Abdomen: no organomegaly Current Medications Medications (Trade) Dose Ordered Sig/Shantelle Route PRN Reason Start Time Stop Time Status Last Admin Dose Admin Acetaminophen (Tylenol) 650 mg Q4H PRN ORAL Mild Pain/Temp > 100.5 03/19/19 16:00 04/18/19 15:59 03/31/19 21:22 Barium Sulfate (Readi-Cat 2) 450 ml PRN PRN ORAL Radiology Procedure 03/27/19 13:30 04/26/19 13:29 Cefepime HCl 1 gm/ Dextrose 55 ml @ 110 mls/hr DAILY IVPB 03/30/19 09:00 04/12/19 23:59 04/11/19 08:09 Dextrose (Dextrose 50%) 25 ml Q30M PRN IV Hypoglycemia 03/23/19 08:45 04/22/19 08:44 Dextrose (Dextrose 50%) 50 ml Q30M PRN IV Hypoglycemia 03/23/19 08:45 04/22/19 08:44 Glipizide (Glucotrol) 5 mg BIAC ORAL 03/21/19 16:30 04/20/19 16:29 04/11/19 16:54 Insulin Aspart (NovoLOG) BEFORE MEALS AND HS SUBQ 03/23/19 11:30 04/22/19 11:29 04/11/19 12:06 Magnesium Hydroxide (Mom) 30 ml DAILYPRN PRN ORAL Constipation 04/01/19 17:30 05/01/19 17:29 04/01/19 17:42 Metronidazole (Flagyl) 500 mg Q8HR ORAL 03/23/19 14:00 04/12/19 23:59 04/11/19 13:31 Nateglinide (Starlix) 120 mg TIAC ORAL 03/23/19 11:30 04/22/19 11:29 04/11/19 16:54 Pantoprazole (Protonix) 40 mg EVERY 12 HOURS ORAL 03/16/19 21:00 04/15/19 20:59 04/11/19 20:10 Smooth Weinstein MD Apr 11, 2019 20:32
--- NOTE | 2019-04-11 21:24 | NUR ---
CASE MANAGEMENT: REVIEW SI: PERFORATED VISCOUS EXPLORATORY LAPAROTOMY, REPAIR VISCUS 03/10 T 97.1 HR 66 RR 17 BP 122/51 SAT 95% ROOM AIR IS: CEFEPIME IV QD FLAGYL PO Q8HR PROTONIX PO Q12HR 1:1 FEED ASST MEAL USING ASPIRATION PRECAUTION MED/SURG STATUS DCP: PATIENT IS FROM HOME
[2019-04-12] VITALS: BP 129/74
[2019-04-12 03:55] VITALS: BP 125/64
[2019-04-12] MEDS: GlipiZIDE 5mg tab ORAL SCH ×2 (06:07→17:02)
[2019-04-12] MEDS: metroNIDAZOLE 500mg tab ORAL SCH ×3 (06:07→21:53)
[2019-04-12] MEDS: NovoLOG Insulin Flexpen SUBQ SCH ×4 (06:09→21:00)
[2019-04-12 06:29] LABS: BASOPHILS % (AUTO) 2.5 % (0.0-2.0); HEMATOCRIT 29.7 % (37.0-47.0); HEMOGLOBIN 9.2 G/DL (12.0-16.0); LYMPHOCYTES % (AUTO) 35.3 % (20.0-45.0); MEAN CORPUSCULAR VOLUME 86 FL (80-99); NEUTROPHILS % (AUTO) 45.2 % (45.0-75.0); PLATELET COUNT 234 K/UL (150-450); RED BLOOD COUNT 3.47 M/UL (4.20-5.40); RED CELL DISTRIBUTION WIDTH 16.8 % (11.6-14.8); WHITE BLOOD COUNT 4.7 K/UL (4.8-10.8)
[2019-04-12 06:57] LABS: ALANINE AMINOTRANSFERASE 9 U/L (12-78); ALBUMIN 2.2 G/DL (3.4-5.0); ALBUMIN/GLOBULIN RATIO 0.6 (1.0-2.7); ALKALINE PHOSPHATASE 123 U/L (46-116); ANION GAP 11 mmol/L (5-15); ASPARTATE AMINO TRANSFERASE 23 U/L (15-37); BILIRUBIN,TOTAL 0.4 MG/DL (0.2-1.0); BLOOD UREA NITROGEN 11 mg/dL (7-18); CALCIUM 8.5 MG/DL (8.5-10.1); CARBON DIOXIDE 21 MMOL/L (21-32); CHLORIDE 108 MMOL/L (98-107); CREATININE 0.5 MG/DL (0.55-1.30); POTASSIUM 3.2 MMOL/L (3.5-5.1); SODIUM 140 MMOL/L (136-145)
--- NOTE | 2019-04-12 07:06 | NUR ---
nurse's notes: no significant changes noted for this shift; no c/o of pain , distress; no s/s of hypoglycemia; slept well during the night. will continue to monitor.
--- NOTE | 2019-04-12 07:30 | NUR ---
NURSE NOTES: Patient is in bed asleep. No visible signs of distress noted. Breathing is even and unlabored. Patient is in bed in locked and lowest position with call light within reach. All safety measures provided. Will continue to monitor.
[2019-04-12 07:38] LABS: PHOSPHORUS 3.4 MG/DL (2.5-4.9)
[2019-04-12 08:00] VITALS: BP 125/70
[2019-04-12] MEDS: Cefepime HCl 1 GM in D5W 55 ML IVPB SCH (08:58)
[2019-04-12 12:00] VITALS: BP 128/72
--- NOTE | 2019-04-12 12:30 | NUR ---
NURSE NOTES: Paged Dr. Clark about lab results, awaiting response.
--- NOTE | 2019-04-12 12:31 | Infectious Diseases Prog Note ---
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 Right adnexal region irregular fluid collection, corresponding to findings reported on recent CT scan. This is contiguous with an immediately adjacent segment of bowel.This likewise corresponds to findings on recent CT. Note that the fluid collection and extent are better delineated on the prior study. Nonvisualized left ovary -CT abd/p: Markedly thickened and fluid-filled endometrium. 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 Complex multilobulated fluid collection with areas of enhancing soft tissue in the right adnexal region. This measures 5.5 x 7 x 3.9 cm. There is also a second tiny collection adjacent to the distal rectum. One possible etiology is, given the above finding, a tubo-ovarian abscess, related to retrograde propagation of endometritis. A second possibility is that this represents acute diverticulitis with peridiverticular abscess, given the close relationship with the distal sigmoid colon. A third possibility is this represents an abscess related to infected pelvic fluid from the prior gastric perforation, as the previous exam did demonstrate a small amount of free fluid in the pelvis. Finally, given the presence of the appendix (which isprominent in caliber) at the edge of the collection, this could represent perforated acute distal appendicitis. However, this is deemed less likely. Evidence of interim repair of previously demonstrated perforated gastric ulcer. No evidence of contrast leakage. No abnormal fluid collection at the operative site. Colonic diverticulosis. Slight rim enhancement of the gallbladder. Slight pericholecystic fluid. However, the gallbladder is nondistended, so doubt significance of this. Bilateral basilar pulmonary parenchymal groundglass opacity, likely on the basis of mild pulmonary edema Fever, SP Leukocytosis, recurrent, resolved-2 ry to above -9/4 Bcx Neg -03/22 CXR: Cardiomegaly.Bilateral basilar atelectasis or scarring. Decreased left pleural fluid u/a neg -9/2 BCx Neg -/ CXR: Subsegmental atelectasis versus infiltrate in the left lung base. -03/19 u/a neg Cdiff neg -v/ duplex no DVT Perforated pre-pyloric gastric ulcer -03/15 s/p UGI series: Negative for postoperative leak -03/10 SP 03/10 SP Exploratory Laparotomy, Abdominal washout. Partial omentectomy. Shane patch for repair of perforated pre-pyloric ulcer. -03/10 CT abd/p: Free intraperitoneal gas. Etiology not completely certain, but gas within and extending from the anterior gastric antral wall is suspicious for a perforated gastric ulcer. Perforated descending colon diverticulitis also possible but deemed much less likely. Free intraperitoneal fluid, presumably related to the above. Fatty liver. Basilar pulmonary parenchymal groundglass opacities. This could indicate pulmonary edema, among other possibilities. Subcentimeter low-attenuation renal lesions, too small to characterize, most likely benign simple cyst. No further follow-up necessary. 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 Acute encephalopathy -CT head: Chronic and age-related changes. Negative for acute intracranial bleed or mass effect VDRF, post-op; extubated 03/12 DARRON, SP Dm2 HTN Plan: -Cont Cefepime #25 and PO Flagyl #20 for intraabdominal abscess while in house -Discussed with Dr Sheth. It is unclear origin of abscess if complication from prior gastric perforation vs gynecological origin vs sigmoid related. Patient no longer febrile and it is felt she is high risk for surgical re-exploration. - Will recommend a total 6 weeks of IV ertapenem; end date 05/01/19 - Monitor weekly CBC, CMP - Would not recommend PO abx in this case lack of cultures and unclear nature of the infection. -03/22 SP Fluconazole #10 -03/15 SP Zosyn #6 -03/10 SP IV Vancomycin #1, Ancef x1 -f/u cx -Monitor CBC/CMP, temperatures -Sx f/u - Rpt Ct of A/P -wound care per surgical team -aspiration precautions Subjective Allergies: Coded Allergies: No Known Allergies (Unverified , 03/10/19) Subjective comfortable no acute event Objective Vital Signs Last 24 Hour Vital Signs Date Time Temp Pulse Resp B/P (MAP) Pulse Ox O2 Delivery O2 Flow Rate FiO2 04/12/19 12:00 98.4 92 18 128/72 (90) 98 04/12/19 09:00 Room Air 04/12/19 08:00 97.9 98 18 125/70 (88) 95 04/12/19 03:55 98.9 88 19 125/64 (84) 96 04/12/19 00:00 99.3 94 16 129/74 (92) 96 04/11/19 21:00 Room Air 04/11/19 19:59 99.1 92 18 134/75 (94) 93 04/11/19 16:00 98.8 92 21 130/71 (90) 98 Height (Feet): 5 Height (Inches): 0.00 Weight (Pounds): 112 Respiratory/Chest: normal breath sounds Cardiovascular: normal rate Abdomen: normal bowel sounds Laboratory Tests Test 04/12/19 05:00 White Blood Count 4.7 K/UL (4.8-10.8) L Red Blood Count 3.47 M/UL (4.20-5.40) L Hemoglobin 9.2 G/DL (12.0-16.0) L Hematocrit 29.7 % (37.0-47.0) L Mean Corpuscular Volume 86 FL (80-99) Mean Corpuscular Hemoglobin 26.7 PG (27.0-31.0) L Mean Corpuscular Hemoglobin Concent 31.1 G/DL (32.0-36.0) L Red Cell Distribution Width 16.8 % (11.6-14.8) H Platelet Count 234 K/UL (150-450) Mean Platelet Volume 6.7 FL (6.5-10.1) Neutrophils (%) (Auto) 45.2 % (45.0-75.0) Lymphocytes (%) (Auto) 35.3 % (20.0-45.0) Monocytes (%) (Auto) 14.0 % (1.0-10.0) H Eosinophils (%) (Auto) 3.0 % (0.0-3.0) Basophils (%) (Auto) 2.5 % (0.0-2.0) H Sodium Level 140 MMOL/L (136-145) Potassium Level 3.2 MMOL/L (3.5-5.1) L Chloride Level 108 MMOL/L (98-107) H Carbon Dioxide Level 21 MMOL/L (21-32) Anion Gap 11 mmol/L (5-15) Blood Urea Nitrogen 11 mg/dL (7-18) Creatinine 0.5 MG/DL (0.55-1.30) L Estimat Glomerular Filtration Rate mL/min (>60) Glucose Level 83 MG/DL (74-106) Calcium Level 8.5 MG/DL (8.5-10.1) Phosphorus Level 3.4 MG/DL (2.5-4.9) Magnesium Level 1.5 MG/DL (1.8-2.4) L Total Bilirubin 0.4 MG/DL (0.2-1.0) Aspartate Amino Transf (AST/SGOT) 23 U/L (15-37) Alanine Aminotransferase (ALT/SGPT) 9 U/L (12-78) L Alkaline Phosphatase 123 U/L (46-116) H Total Protein 5.6 G/DL (6.4-8.2) L Albumin 2.2 G/DL (3.4-5.0) L Globulin 3.4 g/dL Albumin/Globulin Ratio 0.6 (1.0-2.7) L Current Medications Medications (Trade) Dose Ordered Sig/Shantelle Route PRN Reason Start Time Stop Time Status Last Admin Dose Admin Acetaminophen (Tylenol) 650 mg Q4H PRN ORAL Mild Pain/Temp > 100.5 03/19/19 16:00 04/18/19 15:59 03/31/19 21:22 Barium Sulfate (Readi-Cat 2) 450 ml PRN PRN ORAL Radiology Procedure 03/27/19 13:30 04/26/19 13:29 Cefepime HCl 1 gm/ Dextrose 55 ml @ 110 mls/hr DAILY IVPB 03/30/19 09:00 04/17/19 08:59 04/12/19 08:58 Dextrose (Dextrose 50%) 25 ml Q30M PRN IV Hypoglycemia 03/23/19 08:45 04/22/19 08:44 Dextrose (Dextrose 50%) 50 ml Q30M PRN IV Hypoglycemia 03/23/19 08:45 04/22/19 08:44 Glipizide (Glucotrol) 5 mg BIAC ORAL 03/21/19 16:30 04/20/19 16:29 04/12/19 06:07 Insulin Aspart (NovoLOG) BEFORE MEALS AND HS SUBQ 03/23/19 11:30 04/22/19 11:29 04/12/19 12:01 Magnesium Hydroxide (Mom) 30 ml DAILYPRN PRN ORAL Constipation 04/01/19 17:30 05/01/19 17:29 04/01/19 17:42 Metronidazole (Flagyl) 500 mg Q8HR ORAL 03/23/19 14:00 04/17/19 13:59 04/12/19 06:07 Nateglinide (Starlix) 120 mg TIAC ORAL 03/23/19 11:30 04/22/19 11:29 04/12/19 11:59 Pantoprazole (Protonix) 40 mg EVERY 12 HOURS ORAL 03/16/19 21:00 04/15/19 20:59 04/12/19 08:57 Smooth Weinstein MD Apr 12, 2019 12:31
[2019-04-12] MEDS ORDERED: Omnipaque-300 100ml vial INJ PRN (12:45)
--- NOTE | 2019-04-12 13:53 | Nephrology Progress Note ---
Assessment/Plan Problem List: (1) Perforated abdominal viscus (2) Hypokalemia (3) Hypomagnesemia (4) Diabetes mellitus (5) Anemia Assessment WBC rising Post lap on 03/10 Low K Low Phos Low Mag Anemia DM h/o HTN Plan add oral hypoglycemics for high BS high K likely hemolysis resolved DC IV mag supplement change all to orals Mag and K and Phos IV as needed Anemia claudio Keep BP and BS in check per orders DC planning Subjective ROS Limited/Unobtainable: No Objective Objective Last 24 Hour Vital Signs Date Time Temp Pulse Resp B/P (MAP) Pulse Ox O2 Delivery O2 Flow Rate FiO2 04/12/19 12:00 98.4 92 18 128/72 (90) 98 04/12/19 09:00 Room Air 04/12/19 08:00 97.9 98 18 125/70 (88) 95 04/12/19 03:55 98.9 88 19 125/64 (84) 96 04/12/19 00:00 99.3 94 16 129/74 (92) 96 04/11/19 21:00 Room Air 04/11/19 19:59 99.1 92 18 134/75 (94) 93 04/11/19 16:00 98.8 92 21 130/71 (90) 98 Intake and Output 04/11/19 04/12/19 18:59 06:59 Intake Total 620 ml 300 ml Balance 620 ml 300 ml Intake Oral 620 ml 300 ml # Voids 1 2 # Bowel Movements 3 Laboratory Tests 04/12/19 05:00: White Blood Count 4.7L, Red Blood Count 3.47L, Hemoglobin 9.2L, Hematocrit 29.7L , Mean Corpuscular Volume 86, Mean Corpuscular Hemoglobin 26.7L, Mean Corpuscular Hemoglobin Concent 31.1L, Red Cell Distribution Width 16.8H, Platelet Count 234, Mean Platelet Volume 6.7, Neutrophils (%) (Auto) 45.2, Lymphocytes (%) (Auto) 35.3, Monocytes (%) (Auto) 14.0H, Eosinophils (%) (Auto) 3.0, Basophils (%) (Auto) 2.5H, Sodium Level 140, Potassium Level 3.2L, Chloride Level 108H, Carbon Dioxide Level 21, Anion Gap 11, Blood Urea Nitrogen 11, Creatinine 0.5L, Estimat Glomerular Filtration Rate , Glucose Level 83, Calcium Level 8.5, Phosphorus Level 3.4, Magnesium Level 1.5L, Total Bilirubin 0.4, Aspartate Amino Transf (AST/SGOT) 23, Alanine Aminotransferase (ALT/SGPT) 9L, Alkaline Phosphatase 123H, Total Protein 5.6L, Albumin 2.2L, Globulin 3.4, Albumin/Globulin Ratio 0.6L Height (Feet): 5 Height (Inches): 0.00 Weight (Pounds): 112 General Appearance: no apparent distress Objective no change El Clark MD Apr 12, 2019 13:52
--- NOTE | 2019-04-12 14:52 | Surgery Progress Note ---
Surgery Progress Note Subjective Procedure Performed ex lap with imelda patch, washout, omentectomy Symptoms: improved, tolerating diet, voiding well, passing flatus Objective Last 24 Hour Vital Signs Date Time Temp Pulse Resp B/P (MAP) Pulse Ox O2 Delivery O2 Flow Rate FiO2 04/12/19 12:00 98.4 92 18 128/72 (90) 98 04/12/19 09:00 Room Air 04/12/19 08:00 97.9 98 18 125/70 (88) 95 04/12/19 03:55 98.9 88 19 125/64 (84) 96 04/12/19 00:00 99.3 94 16 129/74 (92) 96 04/11/19 21:00 Room Air 04/11/19 19:59 99.1 92 18 134/75 (94) 93 04/11/19 16:00 98.8 92 21 130/71 (90) 98 I&O Intake and Output 04/11/19 04/12/19 19:00 07:00 Intake Total 620 ml 300 ml Balance 620 ml 300 ml Intake Oral 620 ml 300 ml # Voids 1 2 # Bowel Movements 3 Dressing: dry Wound: clean Cardiovascular: RSR Respiratory: clear Abdomen: soft, flat, non-tender, present bowel sounds Extremities: no edema, no tenderness, no cyanosis Laboratory Tests Test 04/12/19 05:00 White Blood Count 4.7 K/UL (4.8-10.8) L Red Blood Count 3.47 M/UL (4.20-5.40) L Hemoglobin 9.2 G/DL (12.0-16.0) L Hematocrit 29.7 % (37.0-47.0) L Mean Corpuscular Volume 86 FL (80-99) Mean Corpuscular Hemoglobin 26.7 PG (27.0-31.0) L Mean Corpuscular Hemoglobin Concent 31.1 G/DL (32.0-36.0) L Red Cell Distribution Width 16.8 % (11.6-14.8) H Platelet Count 234 K/UL (150-450) Mean Platelet Volume 6.7 FL (6.5-10.1) Neutrophils (%) (Auto) 45.2 % (45.0-75.0) Lymphocytes (%) (Auto) 35.3 % (20.0-45.0) Monocytes (%) (Auto) 14.0 % (1.0-10.0) H Eosinophils (%) (Auto) 3.0 % (0.0-3.0) Basophils (%) (Auto) 2.5 % (0.0-2.0) H Sodium Level 140 MMOL/L (136-145) Potassium Level 3.2 MMOL/L (3.5-5.1) L Chloride Level 108 MMOL/L (98-107) H Carbon Dioxide Level 21 MMOL/L (21-32) Anion Gap 11 mmol/L (5-15) Blood Urea Nitrogen 11 mg/dL (7-18) Creatinine 0.5 MG/DL (0.55-1.30) L Estimat Glomerular Filtration Rate mL/min (>60) Glucose Level 83 MG/DL (74-106) Calcium Level 8.5 MG/DL (8.5-10.1) Phosphorus Level 3.4 MG/DL (2.5-4.9) Magnesium Level 1.5 MG/DL (1.8-2.4) L Total Bilirubin 0.4 MG/DL (0.2-1.0) Aspartate Amino Transf (AST/SGOT) 23 U/L (15-37) Alanine Aminotransferase (ALT/SGPT) 9 U/L (12-78) L Alkaline Phosphatase 123 U/L (46-116) H Total Protein 5.6 G/DL (6.4-8.2) L Albumin 2.2 G/DL (3.4-5.0) L Globulin 3.4 g/dL Albumin/Globulin Ratio 0.6 (1.0-2.7) L Assessment Post-op Diagnosis perforated prepyloric gastric ulcer Plan Problems: (1) Peritonitis Assessment & Plan: 84F with perforated abdominal viscus likely gastric perforation based on CT findings s/p imelda patch recovering labs improved exam improved advance diet anna removed CT and US noted abd fluid collection possible abscess unable to drain via IR can consider surgical drainage but would be high risk and with morbidity and mortality risk given age and medical condition family aware plan for medical therapy with IV abx given stable improving with medical management labs improved exam benign will monitor thank you (2) Perforated abdominal viscus Mike Sheth Apr 12, 2019 14:52
[2019-04-12 16:00] VITALS: BP 136/71
--- NOTE | 2019-04-12 16:36 | Internal Med Progress Note ---
Subjective Date of Service: Apr 12, 2019 Physician Name Zen Paige Attending Physician Marcos Silva MD Current Medications Medications (Trade) Dose Ordered Sig/Shantelle Route PRN Reason Start Time Stop Time Status Last Admin Dose Admin Acetaminophen (Tylenol) 650 mg Q4H PRN ORAL Mild Pain/Temp > 100.5 03/19/19 16:00 04/18/19 15:59 03/31/19 21:22 Barium Sulfate (Readi-Cat 2) 450 ml NOW PRN ORAL Radiology Procedure 04/12/19 12:45 04/14/19 12:31 Barium Sulfate (Readi-Cat 2) 450 ml PRN PRN ORAL Radiology Procedure 03/27/19 13:30 04/26/19 13:29 Cefepime HCl 1 gm/ Dextrose 55 ml @ 110 mls/hr DAILY IVPB 03/30/19 09:00 04/17/19 08:59 04/12/19 08:58 Dextrose (Dextrose 50%) 25 ml Q30M PRN IV Hypoglycemia 03/23/19 08:45 04/22/19 08:44 Dextrose (Dextrose 50%) 50 ml Q30M PRN IV Hypoglycemia 03/23/19 08:45 04/22/19 08:44 Glipizide (Glucotrol) 5 mg BIAC ORAL 03/21/19 16:30 04/20/19 16:29 04/12/19 06:07 Insulin Aspart (NovoLOG) BEFORE MEALS AND HS SUBQ 03/23/19 11:30 04/22/19 11:29 04/12/19 12:01 Iohexol (OMNIPAQUE-300 100ml) 100 ml NOW PRN INJ Radiology Procedure 04/12/19 12:45 04/14/19 12:31 Magnesium Hydroxide (Mom) 30 ml DAILYPRN PRN ORAL Constipation 04/01/19 17:30 05/01/19 17:29 04/01/19 17:42 Magnesium Sulfate 100 ml @ 100 mls/hr Q1H IVPB 04/12/19 14:00 04/12/19 17:59 04/12/19 15:52 Metronidazole (Flagyl) 500 mg Q8HR ORAL 03/23/19 14:00 04/17/19 13:59 04/12/19 14:07 Nateglinide (Starlix) 120 mg TIAC ORAL 03/23/19 11:30 04/22/19 11:29 04/12/19 11:59 Pantoprazole (Protonix) 40 mg EVERY 12 HOURS ORAL 03/16/19 21:00 04/15/19 20:59 04/12/19 08:57 Potassium Chloride (K-Dur) 40 meq DAILY ORAL 04/13/19 09:00 05/13/19 08:59 Allergies: Coded Allergies: No Known Allergies (Unverified , 03/10/19) ROS Limited/Unobtainable: No Constitutional: Reports: no symptoms HEENT: Reports: no symptoms Cardiovascular: Reports: no symptoms Respiratory: Reports: no symptoms Gastrointestinal/Abdominal: Reports: no symptoms Genitourinary: Reports: no symptoms Neurologic/Psychiatric: Reports: no symptoms Subjective 84 YO F admitted with abdominal pain. S/P exploratory laparotomy 03/10/19. Now intra-abdominal abscess. Cover for Int Med-Dr Silva. Objective Last Vital Signs Date Time Temp Pulse Resp B/P (MAP) Pulse Ox O2 Delivery O2 Flow Rate FiO2 04/12/19 12:00 98.4 92 18 128/72 (90) 98 04/12/19 09:00 Room Air Laboratory Tests Test 04/12/19 05:00 White Blood Count 4.7 K/UL (4.8-10.8) L Red Blood Count 3.47 M/UL (4.20-5.40) L Hemoglobin 9.2 G/DL (12.0-16.0) L Hematocrit 29.7 % (37.0-47.0) L Mean Corpuscular Volume 86 FL (80-99) Mean Corpuscular Hemoglobin 26.7 PG (27.0-31.0) L Mean Corpuscular Hemoglobin Concent 31.1 G/DL (32.0-36.0) L Red Cell Distribution Width 16.8 % (11.6-14.8) H Platelet Count 234 K/UL (150-450) Mean Platelet Volume 6.7 FL (6.5-10.1) Neutrophils (%) (Auto) 45.2 % (45.0-75.0) Lymphocytes (%) (Auto) 35.3 % (20.0-45.0) Monocytes (%) (Auto) 14.0 % (1.0-10.0) H Eosinophils (%) (Auto) 3.0 % (0.0-3.0) Basophils (%) (Auto) 2.5 % (0.0-2.0) H Sodium Level 140 MMOL/L (136-145) Potassium Level 3.2 MMOL/L (3.5-5.1) L Chloride Level 108 MMOL/L (98-107) H Carbon Dioxide Level 21 MMOL/L (21-32) Anion Gap 11 mmol/L (5-15) Blood Urea Nitrogen 11 mg/dL (7-18) Creatinine 0.5 MG/DL (0.55-1.30) L Estimat Glomerular Filtration Rate mL/min (>60) Glucose Level 83 MG/DL (74-106) Calcium Level 8.5 MG/DL (8.5-10.1) Phosphorus Level 3.4 MG/DL (2.5-4.9) Magnesium Level 1.5 MG/DL (1.8-2.4) L Total Bilirubin 0.4 MG/DL (0.2-1.0) Aspartate Amino Transf (AST/SGOT) 23 U/L (15-37) Alanine Aminotransferase (ALT/SGPT) 9 U/L (12-78) L Alkaline Phosphatase 123 U/L (46-116) H Total Protein 5.6 G/DL (6.4-8.2) L Albumin 2.2 G/DL (3.4-5.0) L Globulin 3.4 g/dL Albumin/Globulin Ratio 0.6 (1.0-2.7) L Intake and Output 04/11/19 04/12/19 18:59 06:59 Intake Total 620 ml 300 ml Balance 620 ml 300 ml Intake Oral 620 ml 300 ml # Voids 1 2 # Bowel Movements 3 Objective PHYSICAL EXAMINATION: GENERAL: The patient is a well developed, well nourished female who is intubated and sedated. HEENT: Eyes, pupils equal and responsive to light and accommodation. Extraocular movements are intact. NECK: Supple without lymphadenopathy. CHEST: Nasc canula; Few diffuse wheezes bilaterally. Otherwise, without wheezes or rales. CARDIOVASCULAR: Regular rhythm rate. S1-S2 are normal without murmurs, rubs, or gallops. ABDOMEN: NGT; Soft, nontender with decreased bowel sounds. No evidence of hepatosplenomegaly. no rebound or guarding noted. EXTREMITIES: Negative for clubbing, cyanosis, edema. RECTAL/GENITAL: Not performed. NEUROLOGIC: Cranial nerves II through XII are grossly intact without focal deficits. Assessment/Plan Assessment/Plan ASSESSMENT: This is an 84-year-old female. 1. Perforated gastric ulcer 2. Abdominal pain. 3. Nausea with vomiting. 4. Diabetes type 2. 5. Hypertension. 6. Post Op fever-resolved 7. Leukocytosis 8. Intraabdominal abscess TREATMENT: 1. Perforated gastric ulcer. A General Surgery consultation has been obtained with Dr. Sheth. S/P exploratory laparotomy 03/10/19=perforated Pre pyloric ulcer. Tolerating regular diet; NGT discontinued per surgery 2. Diabetes type 2. NovoLog sliding scale has been instituted. 3. Hypertension. The patient is currently hypotensive. 4. Respiratory failure. S/P extubation 03/12/19. A Pulmonary consultation has been obtained with Dr. Bibiana Pennington. 5. Med/surg 6. ABX=Ertapenem for 6 weeks-end date 05/01/19 per ID 7. Surgical intervention on hold for intraabdominal abscess-see surgery note. Will require 6 weeks of ertapenem per ID 8. WBC now normal; Discharge planning 9. CT abdomen/pelvis tomorrow 04/13/19 to assess intraabdominal abscess Zen Paige MD Apr 12, 2019 16:36
--- NOTE | 2019-04-12 17:41 | NUR ---
HAND-OFF: Report given to Amanda MOON. Patient is stable.
--- NOTE | 2019-04-12 19:30 | NUR ---
HAND-OFF: Report given to Diego MOON.
--- NOTE | 2019-04-12 19:44 | NUR ---
CASE MANAGEMENT: REVIEW SI: PERFORATED VISCOUS EXPLORATORY LAPAROTOMY, REPAIR VISCUS 03/10 T 98.4 HR 92 RR 18 BP 128/72 SAT 98% ROOM AIR WBC 4.7 H/H 9.2/29.7 MAG 1.5 IS: CEFEPIME IV QD FLAGYL PO Q8HR PROTONIX PO Q12HR 1:1 FEED ASST MEAL USING ASPIRATION PRECAUTION MED/SURG STATUS DCP: PATIENT IS FROM HOME PLAN: CT ABD / PELVIS
[2019-04-12 20:00] VITALS: BP 142/78
--- NOTE | 2019-04-12 20:00 | NUR ---
NURSE NOTES: Received report from AM SARAI Downing Patient is resting in bed. Right forearm IV saline locked and asymptomatic. No c/o of pain or nausea at this time. Skin intact. Bed in low and locked position. Family at bedside. Will continue to monitor.
[2019-04-13] VITALS: BP 134/81
[2019-04-13 04:00] VITALS: BP 139/68
[2019-04-13 05:38] LABS: BASOPHILS % (AUTO) 2.4 % (0.0-2.0); EOSINOPHILS % (AUTO) 2.2 % (0.0-3.0); HEMATOCRIT 30.4 % (37.0-47.0); HEMOGLOBIN 9.5 G/DL (12.0-16.0); LYMPHOCYTES % (AUTO) 34.8 % (20.0-45.0); MEAN CORPUSCULAR VOLUME 85 FL (80-99); MONOCYTES % (AUTO) 13.6 % (1.0-10.0); NEUTROPHILS % (AUTO) 46.9 % (45.0-75.0); PLATELET COUNT 225 K/UL (150-450); RED BLOOD COUNT 3.57 M/UL (4.20-5.40); RED CELL DISTRIBUTION WIDTH 16.5 % (11.6-14.8); WHITE BLOOD COUNT 5.2 K/UL (4.8-10.8)
[2019-04-13 05:44] LABS: ANION GAP 10 mmol/L (5-15); BLOOD UREA NITROGEN 8 mg/dL (7-18); CALCIUM 8.3 MG/DL (8.5-10.1); CARBON DIOXIDE 22 MMOL/L (21-32); CHLORIDE 108 MMOL/L (98-107); CREATININE 0.5 MG/DL (0.55-1.30); POTASSIUM 3.1 MMOL/L (3.5-5.1); SODIUM 140 MMOL/L (136-145)
[2019-04-13] MEDS: metroNIDAZOLE 500mg tab ORAL SCH ×3 (05:50→22:23)
[2019-04-13] MEDS: GlipiZIDE 5mg tab ORAL SCH ×2 (05:50→17:14)
[2019-04-13] MEDS: NovoLOG Insulin Flexpen SUBQ SCH ×4 (05:51→22:20)
--- NOTE | 2019-04-13 07:45 | NUR ---
NURSE NOTES: Received report from SARAI Cortez. Patient A&Ox4. On room air, no signs of distress or labored breathing. IV intact, patent, and saline locked. Yi speaking. Bed in lowest position with call light in reach. Will continue with plan of care.
[2019-04-13 08:00] VITALS: BP 136/67
[2019-04-13] MEDS: Cefepime HCl 1 GM in D5W 55 ML IVPB SCH (08:21)
[2019-04-13 08:44] LABS: ALANINE AMINOTRANSFERASE 10 U/L (12-78); ALBUMIN 2.3 G/DL (3.4-5.0); ALKALINE PHOSPHATASE 121 U/L (46-116); ASPARTATE AMINO TRANSFERASE 25 U/L (15-37); BILIRUBIN,DIRECT < 0.1 MG/DL (0.0-0.3); BILIRUBIN,TOTAL 0.3 MG/DL (0.2-1.0); PHOSPHORUS 3.2 MG/DL (2.5-4.9)
--- NOTE | 2019-04-13 11:05 | NUR ---
NURSE NOTES: Patient off unit for CT scan.
--- NOTE | 2019-04-13 11:19 | NUR ---
NURSE NOTES: Patient back from CT scan.
[2019-04-13 12:00] VITALS: BP 122/66
--- NOTE | 2019-04-13 12:05 | Nephrology Progress Note ---
Assessment/Plan Problem List: (1) Perforated abdominal viscus (2) Hypokalemia (3) Hypomagnesemia (4) Diabetes mellitus (5) Anemia Assessment WBC rising Post lap on 03/10 Low K Low Phos Low Mag Anemia DM h/o HTN Plan add oral hypoglycemics for high BS DC IV change all to orals Mag and K and Phos IV as needed Anemia claudio Keep BP and BS in check per orders DC planning Subjective ROS Limited/Unobtainable: No Objective Objective Last 24 Hour Vital Signs Date Time Temp Pulse Resp B/P (MAP) Pulse Ox O2 Delivery O2 Flow Rate FiO2 04/13/19 08:00 99.0 83 18 136/67 (90) 94 04/13/19 04:00 99.3 92 15 139/68 (91) 96 04/13/19 00:00 99.2 105 15 134/81 (98) 96 04/12/19 21:00 Room Air 04/12/19 20:00 97.8 82 15 142/78 (99) 97 04/12/19 16:00 98.1 91 18 136/71 (92) 98 Intake and Output 04/12/19 04/13/19 19:00 07:00 Intake Total 900 ml Balance 900 ml Intake Oral 900 ml # Voids 3 2 # Bowel Movements 1 1 Laboratory Tests 04/13/19 04:45: White Blood Count 5.2, Red Blood Count 3.57L, Hemoglobin 9.5L, Hematocrit 30.4L , Mean Corpuscular Volume 85, Mean Corpuscular Hemoglobin 26.6L, Mean Corpuscular Hemoglobin Concent 31.2L, Red Cell Distribution Width 16.5H, Platelet Count 225, Mean Platelet Volume 6.7, Neutrophils (%) (Auto) 46.9, Lymphocytes (%) (Auto) 34.8, Monocytes (%) (Auto) 13.6H, Eosinophils (%) (Auto) 2.2, Basophils (%) (Auto) 2.4H, Sodium Level 140, Potassium Level 3.1L, Chloride Level 108H, Carbon Dioxide Level 22, Anion Gap 10, Blood Urea Nitrogen 8, Creatinine 0.5L, Estimat Glomerular Filtration Rate , Glucose Level 86, Calcium Level 8.3L, Phosphorus Level 3.2, Magnesium Level 2.1, Total Bilirubin 0.3, Direct Bilirubin < 0.1, Aspartate Amino Transf (AST/SGOT) 25, Alanine Aminotransferase (ALT/SGPT) 10L, Alkaline Phosphatase 121H, Total Protein 5.7L, Albumin 2.3L Height (Feet): 5 Height (Inches): 0.00 Weight (Pounds): 112 General Appearance: no apparent distress Cardiovascular: normal rate Respiratory/Chest: decreased breath sounds Abdomen: soft Objective no change El Clark MD Apr 13, 2019 12:05
--- NOTE | 2019-04-13 12:33 | Diagnostic Imaging Report ---
Indication: Abdominal pain history of surgical repair of perforated gastric ulcer Technique: Spiral acquisitions obtained through the abdomen and pelvis. Patient given oral contrast. No IV contrast utilized, per referring physician request.. Multiplanar reconstructions were generated. Total dose length product 970 mGycm. CTDIvol(s) 21 mGy. Dose reduction achieved using automated exposure control Comparison: 03/27/2019 Findings: Again demonstrated is a midline surgical incisional scar. There is infiltration of the fat anterior and inferior to the gastric body and antrum. This is slightly increased from the previous study. No discrete fluid collection is demonstrated, however. There is mild thickening of the rectus abdominis tendon. This is slightly more evident than on the prior study. No evidence of contrast leakage is demonstrated. Within the pelvis, previously demonstrated right adnexal region fluid collection is less clearly defined due to lack of contrast administration on the current exam. There does appear to be a small area of fluid measuring approximately 2 cm in diameter with fat floating nondependently within it. The nondependent fat is a new finding. Previous exam demonstrated noncontained fluid within this area which may be slightly decreased, although again comparison is difficult in the absence of IV contrast. There is increased infiltration of the fat between the rectum and the uterus.. 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 A tiny 13 mm collection adjacent to the rectum is again demonstrated, appears unchanged in size. The appendix is dilated with fluid proximally, more clearly so than on the previous study, measuring up to 14 mm in diameter. It appears intact proximally. The distal end disappears within the area of pelvic abnormality. There is some wall thickening of the distal ileum as it traverses past the area pelvic abnormality. Lack of IV contrast limits assessment of the solid organs. The liver, gallbladder, bile ducts, pancreas, spleen, adrenals, kidneys are all grossly unremarkable. Previously demonstrated low-attenuation renal lesions are not clearly evident on current noninfused exam. Again demonstrated is a left hip prosthesis. This throws off streak artifact in the pelvis. No evidence of diverticulosis or diverticulitis. Ingested contrast has traversed the entirety of the large and small bowel. No small bowel distention. No free intraperitoneal gas. Distal esophagus is unremarkable. There is apparent wall thickening of the gastric antrum but this is probably an artifact of under distention. The included lung bases demonstrate some scarring and atelectatic changes. The bones demonstrate degenerative spondylosis changes. There is an old healed left inferior. Ramus fracture Impression: Unusual fluid and phlegmon changes seen in the right adnexal region. Comparison with prior study of 03/27/2019 is difficult, due to lack of IV contrast administration currently. However, there appears to be likely decreased discrete fluid but is perhaps slightly increased phlegmon component. In addition, the appendix appears distended with fluid currently but intact. The significance of this finding and he of the surrounding abnormalities is uncertain. There is also a tiny 13 mm collection in the right perirectal region which is unchanged Persistent distention of the endometrium with fluid Slightly increased infiltration of the omental fat adjacent to the distal greater curvature of the stomach without discrete fluid collection. This may represent progressive postsurgical scarring. Other findings as noted, including degenerative spondylosis, left hip prosthesis, old healed left inferior pubic ramus fracture Findings discussed by phone with Dr. Sheth at the time of interpretation The CT scanner at [facility] is accredited by the [employer] and the scans are performed using protocols designed to limit radiation exposure to as low as reasonably achievable to attain images of sufficient resolution adequate for diagnostic evaluation.
--- NOTE | 2019-04-13 13:07 | Internal Med Progress Note ---
Subjective Date of Service: Apr 13, 2019 Physician Name GreciaZen Attending Physician Marcos Silva MD Current Medications Medications (Trade) Dose Ordered Sig/Shantelle Route PRN Reason Start Time Stop Time Status Last Admin Dose Admin Acetaminophen (Tylenol) 650 mg Q4H PRN ORAL Mild Pain/Temp > 100.5 03/19/19 16:00 04/18/19 15:59 03/31/19 21:22 Barium Sulfate (Readi-Cat 2) 450 ml NOW PRN ORAL Radiology Procedure 04/12/19 12:45 04/14/19 12:31 Barium Sulfate (Readi-Cat 2) 450 ml PRN PRN ORAL Radiology Procedure 03/27/19 13:30 04/26/19 13:29 04/13/19 08:21 Cefepime HCl 1 gm/ Dextrose 55 ml @ 110 mls/hr DAILY IVPB 03/30/19 09:00 04/17/19 08:59 04/13/19 08:21 Dextrose (Dextrose 50%) 25 ml Q30M PRN IV Hypoglycemia 03/23/19 08:45 04/22/19 08:44 Dextrose (Dextrose 50%) 50 ml Q30M PRN IV Hypoglycemia 03/23/19 08:45 04/22/19 08:44 Glipizide (Glucotrol) 5 mg BIAC ORAL 03/21/19 16:30 04/20/19 16:29 04/13/19 05:50 Insulin Aspart (NovoLOG) BEFORE MEALS AND HS SUBQ 03/23/19 11:30 04/22/19 11:29 04/12/19 17:05 Iohexol (OMNIPAQUE-300 100ml) 100 ml NOW PRN INJ Radiology Procedure 04/12/19 12:45 04/14/19 12:31 Magnesium Hydroxide (Mom) 30 ml DAILYPRN PRN ORAL Constipation 04/01/19 17:30 05/01/19 17:29 04/01/19 17:42 Metronidazole (Flagyl) 500 mg Q8HR ORAL 03/23/19 14:00 04/17/19 13:59 04/13/19 05:50 Nateglinide (Starlix) 120 mg TIAC ORAL 03/23/19 11:30 04/22/19 11:29 04/13/19 12:06 Pantoprazole (Protonix) 40 mg EVERY 12 HOURS ORAL 03/16/19 21:00 04/15/19 20:59 04/13/19 08:22 Potassium Chloride (K-Dur) 40 meq BID ORAL 04/13/19 18:00 05/13/19 17:59 Allergies: Coded Allergies: No Known Allergies (Unverified , 03/10/19) ROS Limited/Unobtainable: No Constitutional: Reports: no symptoms HEENT: Reports: no symptoms Cardiovascular: Reports: no symptoms Respiratory: Reports: no symptoms Gastrointestinal/Abdominal: Reports: no symptoms Genitourinary: Reports: no symptoms Subjective 84 YO F admitted with abdominal pain. S/P exploratory laparotomy 03/10/19. Now intra-abdominal abscess. Cover for Int Med-Dr Silva. Objective Last Vital Signs Date Time Temp Pulse Resp B/P (MAP) Pulse Ox O2 Delivery O2 Flow Rate FiO2 04/13/19 08:00 99.0 83 18 136/67 (90) 94 04/12/19 21:00 Room Air Laboratory Tests Test 04/13/19 04:45 White Blood Count 5.2 K/UL (4.8-10.8) Red Blood Count 3.57 M/UL (4.20-5.40) L Hemoglobin 9.5 G/DL (12.0-16.0) L Hematocrit 30.4 % (37.0-47.0) L Mean Corpuscular Volume 85 FL (80-99) Mean Corpuscular Hemoglobin 26.6 PG (27.0-31.0) L Mean Corpuscular Hemoglobin Concent 31.2 G/DL (32.0-36.0) L Red Cell Distribution Width 16.5 % (11.6-14.8) H Platelet Count 225 K/UL (150-450) Mean Platelet Volume 6.7 FL (6.5-10.1) Neutrophils (%) (Auto) 46.9 % (45.0-75.0) Lymphocytes (%) (Auto) 34.8 % (20.0-45.0) Monocytes (%) (Auto) 13.6 % (1.0-10.0) H Eosinophils (%) (Auto) 2.2 % (0.0-3.0) Basophils (%) (Auto) 2.4 % (0.0-2.0) H Sodium Level 140 MMOL/L (136-145) Potassium Level 3.1 MMOL/L (3.5-5.1) L Chloride Level 108 MMOL/L (98-107) H Carbon Dioxide Level 22 MMOL/L (21-32) Anion Gap 10 mmol/L (5-15) Blood Urea Nitrogen 8 mg/dL (7-18) Creatinine 0.5 MG/DL (0.55-1.30) L Estimat Glomerular Filtration Rate mL/min (>60) Glucose Level 86 MG/DL (74-106) Calcium Level 8.3 MG/DL (8.5-10.1) L Phosphorus Level 3.2 MG/DL (2.5-4.9) Magnesium Level 2.1 MG/DL (1.8-2.4) Total Bilirubin 0.3 MG/DL (0.2-1.0) Direct Bilirubin < 0.1 MG/DL (0.0-0.3) Aspartate Amino Transf (AST/SGOT) 25 U/L (15-37) Alanine Aminotransferase (ALT/SGPT) 10 U/L (12-78) L Alkaline Phosphatase 121 U/L (46-116) H Total Protein 5.7 G/DL (6.4-8.2) L Albumin 2.3 G/DL (3.4-5.0) L Intake and Output 04/12/19 04/13/19 19:00 07:00 Intake Total 900 ml Balance 900 ml Intake Oral 900 ml # Voids 3 2 # Bowel Movements 1 1 Objective PHYSICAL EXAMINATION: GENERAL: The patient is a well developed, well nourished female who is intubated and sedated. HEENT: Eyes, pupils equal and responsive to light and accommodation. Extraocular movements are intact. NECK: Supple without lymphadenopathy. CHEST: Nasc canula; Few diffuse wheezes bilaterally. Otherwise, without wheezes or rales. CARDIOVASCULAR: Regular rhythm rate. S1-S2 are normal without murmurs, rubs, or gallops. ABDOMEN: NGT; Soft, nontender with decreased bowel sounds. No evidence of hepatosplenomegaly. no rebound or guarding noted. EXTREMITIES: Negative for clubbing, cyanosis, edema. RECTAL/GENITAL: Not performed. NEUROLOGIC: Cranial nerves II through XII are grossly intact without focal deficits. Assessment/Plan Assessment/Plan ASSESSMENT: This is an 84-year-old female. 1. Perforated gastric ulcer 2. Abdominal pain. 3. Nausea with vomiting. 4. Diabetes type 2. 5. Hypertension. 6. Post Op fever-resolved 7. Leukocytosis 8. Intraabdominal abscess TREATMENT: 1. Perforated gastric ulcer. A General Surgery consultation has been obtained with Dr. Sheth. S/P exploratory laparotomy 03/10/19=perforated Pre pyloric ulcer. Tolerating regular diet; NGT discontinued per surgery 2. Diabetes type 2. NovoLog sliding scale has been instituted. 3. Hypertension. The patient is currently hypotensive. 4. Respiratory failure. S/P extubation 03/12/19. A Pulmonary consultation has been obtained with Dr. Bibiana Pennington. 5. Med/surg 6. ABX=Ertapenem for 6 weeks-end date 05/01/19 per ID 7. Surgical intervention on hold for intraabdominal abscess-see surgery note. Will require 6 weeks of ertapenem per ID 8. WBC now normal; Discharge planning 9. Await CT abdomen/pelvis results from 04/13/19 to assess intraabdominal abscess Zen Paige MD Apr 13, 2019 13:07
--- NOTE | 2019-04-13 14:19 | NUR ---
RD ASSESSMENT & RECOMMENDATIONS SEE CARE ACTIVITY FOR COMPLETE ASSESSMENT DAILY ESTIMATED NEEDS: Needs based on Surgery, DM / 53.6kg 25-35 kcals/kg 1269-0297 total kcals 1-2 g protein/kg 54-107 g total protein 25-30 mL/kg 4252-8068 total fluid mLs NUTRITION DIAGNOSIS: * Altered GI function R/T perforated gastric ulcer as evidenced by s/p ex lap, abdominal washout, partial omentectomy, imelda patch for repair of perforated pre-pyloric ulcer, diet now advanced to regular. * Altered nutrition related lab values R/T diabetes, clinical condition as evidenced by elev BGs (177 226 332-> 106 96 107), POC glu (88-226), A1C 10.2, urine glucose 4+, low phos-> now wnl, low mg-> not updated, elev triglycerides (300). PO DIET RECOMMENDATIONS: BLAND, CCHO LOW DIET ADDITIONAL RECOMMENDATIONS: * Monitor BGs closely-> improved since adm * Calibrated bedscale wt for accurate CBW-> pt w/ extended adm * Monitor lytes, replete as needed * Lipid lowering agent for elev triglyceride (300) * F/up wound eval: rec add MVI x 1, Vit C 250mg QD * Glucerna TID -> decreased to QD as pt reports disliking it .
--- NOTE | 2019-04-13 15:37 | Infectious Diseases Prog Note ---
Assessment/Plan Assessment/Plan A: Fever, SP Leukocytosis, -S-p- Probable Sepsis- 2ry to likely intraabdominal abscess- ?source (post-op complication vs urogynecology physician or sigmoid origin) -04/13 Sp Unusual fluid and phlegmon changes seen in the right adnexal region. Comparison with prior study of 03/27/2019 is difficult, due to lack of IV contrast administration currently. However, there appears to be likely decreased discrete fluid but is perhaps slightly increased phlegmon component. In addition, the appendix appears distended with fluid currently but intact. The significance of this finding and he of the surrounding abnormalities is uncertain. There is also a tiny 13 mm collection in the right perirectal region which is unchanged Persistent distention of the endometrium with fluid Slightly increased infiltration of the omental fat adjacent to the distal greater curvature of the stomach without discrete fluid collection. This may represent progressive postsurgical scarring. 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 Right adnexal region irregular fluid collection, corresponding to findings reported on recent CT scan. This is contiguous with an immediately adjacent segment of bowel.This likewise corresponds to findings on recent CT. Note that the fluid collection and extent are better delineated on the prior study. Nonvisualized left ovary -CT abd/p: Markedly thickened and fluid-filled endometrium. 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 Complex multilobulated fluid collection with areas of enhancing soft tissue in the right adnexal region. This measures 5.5 x 7 x 3.9 cm. There is also a second tiny collection adjacent to the distal rectum. One possible etiology is, given the above finding, a tubo-ovarian abscess, related to retrograde propagation of endometritis. A second possibility is that this represents acute diverticulitis with peridiverticular abscess, given the close relationship with the distal sigmoid colon. A third possibility is this represents an abscess related to infected pelvic fluid from the prior gastric perforation, as the previous exam did demonstrate a small amount of free fluid in the pelvis. Finally, given the presence of the appendix (which isprominent in caliber) at the edge of the collection, this could represent perforated acute distal appendicitis. However, this is deemed less likely. Evidence of interim repair of previously demonstrated perforated gastric ulcer. No evidence of contrast leakage. No abnormal fluid collection at the operative site. Colonic diverticulosis. Slight rim enhancement of the gallbladder. Slight pericholecystic fluid. However, the gallbladder is nondistended, so doubt significance of this. Bilateral basilar pulmonary parenchymal groundglass opacity, likely on the basis of mild pulmonary edema Perforated pre-pyloric gastric ulcer -03/15 s/p UGI series: Negative for postoperative leak -03/10 SP 03/10 SP Exploratory Laparotomy, Abdominal washout. Partial omentectomy. Shane patch for repair of perforated pre-pyloric ulcer. -03/10 CT abd/p: Free intraperitoneal gas. Etiology not completely certain, but gas within and extending from the anterior gastric antral wall is suspicious for a perforated gastric ulcer. Perforated descending colon diverticulitis also possible but deemed much less likely. Free intraperitoneal fluid, presumably related to the above. Fatty liver. Basilar pulmonary parenchymal groundglass opacities. This could indicate pulmonary edema, among other possibilities. Subcentimeter low-attenuation renal lesions, too small to characterize, most likely benign simple cyst. No further follow-up necessary. 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 Acute encephalopathy, Sp -CT head: Chronic and age-related changes. Negative for acute intracranial bleed or mass effect VDRF, post-op; extubated 03/12 DARRON, SP Dm2 HTN Plan: -Cont Cefepime #26 and PO Flagyl #21 for intraabdominal abscess while in house - Will recommend a total 6 weeks of IV ertapenem; end date 05/01/19 - Monitor weekly CBC, CMP - Would not recommend PO abx in this case lack of cultures and unclear nature of the infection. -03/22 SP Fluconazole #10 -03/15 SP Zosyn #6 -03/10 SP IV Vancomycin #1, Ancef x1 -f/u cx -Monitor CBC/CMP, temperatures -Sx f/u -wound care per surgical team -aspiration precautions -Discussed with Dr Sheth. re CT findings Subjective Allergies: Coded Allergies: No Known Allergies (Unverified , 03/10/19) Subjective comfortable Sp CT Objective Vital Signs Last 24 Hour Vital Signs Date Time Temp Pulse Resp B/P (MAP) Pulse Ox O2 Delivery O2 Flow Rate FiO2 04/13/19 08:00 99.0 83 18 136/67 (90) 94 04/13/19 04:00 99.3 92 15 139/68 (91) 96 04/13/19 00:00 99.2 105 15 134/81 (98) 96 04/12/19 21:00 Room Air 04/12/19 20:00 97.8 82 15 142/78 (99) 97 04/12/19 16:00 98.1 91 18 136/71 (92) 98 Height (Feet): 5 Height (Inches): 0.00 Weight (Pounds): 112 HEENT: anicteric Respiratory/Chest: normal breath sounds Cardiovascular: regularly irregular Abdomen: no organomegaly Laboratory Tests Test 04/13/19 04:45 White Blood Count 5.2 K/UL (4.8-10.8) Red Blood Count 3.57 M/UL (4.20-5.40) L Hemoglobin 9.5 G/DL (12.0-16.0) L Hematocrit 30.4 % (37.0-47.0) L Mean Corpuscular Volume 85 FL (80-99) Mean Corpuscular Hemoglobin 26.6 PG (27.0-31.0) L Mean Corpuscular Hemoglobin Concent 31.2 G/DL (32.0-36.0) L Red Cell Distribution Width 16.5 % (11.6-14.8) H Platelet Count 225 K/UL (150-450) Mean Platelet Volume 6.7 FL (6.5-10.1) Neutrophils (%) (Auto) 46.9 % (45.0-75.0) Lymphocytes (%) (Auto) 34.8 % (20.0-45.0) Monocytes (%) (Auto) 13.6 % (1.0-10.0) H Eosinophils (%) (Auto) 2.2 % (0.0-3.0) Basophils (%) (Auto) 2.4 % (0.0-2.0) H Sodium Level 140 MMOL/L (136-145) Potassium Level 3.1 MMOL/L (3.5-5.1) L Chloride Level 108 MMOL/L (98-107) H Carbon Dioxide Level 22 MMOL/L (21-32) Anion Gap 10 mmol/L (5-15) Blood Urea Nitrogen 8 mg/dL (7-18) Creatinine 0.5 MG/DL (0.55-1.30) L Estimat Glomerular Filtration Rate mL/min (>60) Glucose Level 86 MG/DL (74-106) Calcium Level 8.3 MG/DL (8.5-10.1) L Phosphorus Level 3.2 MG/DL (2.5-4.9) Magnesium Level 2.1 MG/DL (1.8-2.4) Total Bilirubin 0.3 MG/DL (0.2-1.0) Direct Bilirubin < 0.1 MG/DL (0.0-0.3) Aspartate Amino Transf (AST/SGOT) 25 U/L (15-37) Alanine Aminotransferase (ALT/SGPT) 10 U/L (12-78) L Alkaline Phosphatase 121 U/L (46-116) H Total Protein 5.7 G/DL (6.4-8.2) L Albumin 2.3 G/DL (3.4-5.0) L Current Medications Medications (Trade) Dose Ordered Sig/Shantelle Route PRN Reason Start Time Stop Time Status Last Admin Dose Admin Acetaminophen (Tylenol) 650 mg Q4H PRN ORAL Mild Pain/Temp > 100.5 03/19/19 16:00 04/18/19 15:59 03/31/19 21:22 Barium Sulfate (Readi-Cat 2) 450 ml NOW PRN ORAL Radiology Procedure 04/12/19 12:45 04/14/19 12:31 Barium Sulfate (Readi-Cat 2) 450 ml PRN PRN ORAL Radiology Procedure 03/27/19 13:30 04/26/19 13:29 04/13/19 08:21 Cefepime HCl 1 gm/ Dextrose 55 ml @ 110 mls/hr DAILY IVPB 03/30/19 09:00 04/17/19 08:59 04/13/19 08:21 Dextrose (Dextrose 50%) 25 ml Q30M PRN IV Hypoglycemia 03/23/19 08:45 04/22/19 08:44 Dextrose (Dextrose 50%) 50 ml Q30M PRN IV Hypoglycemia 03/23/19 08:45 04/22/19 08:44 Glipizide (Glucotrol) 5 mg BIAC ORAL 03/21/19 16:30 04/20/19 16:29 04/13/19 05:50 Insulin Aspart (NovoLOG) BEFORE MEALS AND HS SUBQ 03/23/19 11:30 04/22/19 11:29 04/12/19 17:05 Iohexol (OMNIPAQUE-300 100ml) 100 ml NOW PRN INJ Radiology Procedure 04/12/19 12:45 04/14/19 12:31 Magnesium Hydroxide (Mom) 30 ml DAILYPRN PRN ORAL Constipation 04/01/19 17:30 05/01/19 17:29 04/01/19 17:42 Metronidazole (Flagyl) 500 mg Q8HR ORAL 03/23/19 14:00 04/17/19 13:59 04/13/19 15:11 Nateglinide (Starlix) 120 mg TIAC ORAL 03/23/19 11:30 04/22/19 11:29 04/13/19 12:06 Pantoprazole (Protonix) 40 mg EVERY 12 HOURS ORAL 03/16/19 21:00 04/15/19 20:59 04/13/19 08:22 Potassium Chloride (K-Dur) 40 meq BID ORAL 04/13/19 18:00 05/13/19 17:59 Smooth Weinstein MD Apr 13, 2019 15:37
[2019-04-13 16:00] VITALS: BP 129/68
[2019-04-13] MEDS ORDERED: Tubing IV Secondary IV ONE (18:18)
[2019-04-13] MEDS ORDERED: NS 275ml ONE (18:18)
--- NOTE | 2019-04-13 19:27 | NUR ---
HAND-OFF: Report given to SARAI Mulligan.
--- NOTE | 2019-04-13 19:28 | NUR ---
NURSE NOTES: Received report form SARAI Ornelas. AM RN will contact physician to notify of CT scan results, also noted on report that impressions have been discussed with Dr Sheth. Patient alert and oriented, ambulating to bathroom without difficulty. Denies any pain at this time. Family at bedside, very supportive. Bed in low position, locked, side rails up x2, call light within reach. Will continue to monitor.
--- NOTE | 2019-04-13 19:42 | NUR ---
CASE MANAGEMENT: REVIEW SI: PERFORATED VISCOUS EXPLORATORY LAPAROTOMY, REPAIR VISCUS 03/10 T 97.2 HR 105 RR 15 BP 134/81 SAT 96% ROOM AIR H/H 9.5/30.4 K 3.1 IS: CEFEPIME IV QD FLAGYL PO Q8HR PROTONIX PO Q12HR NPO MED/SURG STATUS DCP: PATIENT IS FROM HOME PLAN: CT ABD / PELVIS
[2019-04-13 20:00] VITALS: BP 117/73
--- NOTE | 2019-04-13 21:40 | Surgery Progress Note ---
Surgery Progress Note Subjective Procedure Performed ex lap with imelda patch, washout, omentectomy Additional Comments CT findings reviewed and discussed labs okay exam benign tolerating diet ambulatory afebrile, HD Stable no complaints Objective Last 24 Hour Vital Signs Date Time Temp Pulse Resp B/P (MAP) Pulse Ox O2 Delivery O2 Flow Rate FiO2 04/13/19 16:00 98.4 89 20 129/68 (88) 96 04/13/19 12:00 97.2 99 20 122/66 (84) 94 04/13/19 09:00 Room Air 04/13/19 08:00 99.0 83 18 136/67 (90) 94 04/13/19 04:00 99.3 92 15 139/68 (91) 96 04/13/19 00:00 99.2 105 15 134/81 (98) 96 I&O Intake and Output 04/12/19 04/13/19 19:00 07:00 Intake Total 900 ml Balance 900 ml Intake Oral 900 ml # Voids 3 2 # Bowel Movements 1 1 Wound: clean, dry Drains: none Cardiovascular: RSR Respiratory: clear Abdomen: soft, flat, non-tender, present bowel sounds, non-distended Extremities: no edema, no tenderness, no cyanosis Laboratory Tests Test 04/13/19 04:45 White Blood Count 5.2 K/UL (4.8-10.8) Red Blood Count 3.57 M/UL (4.20-5.40) L Hemoglobin 9.5 G/DL (12.0-16.0) L Hematocrit 30.4 % (37.0-47.0) L Mean Corpuscular Volume 85 FL (80-99) Mean Corpuscular Hemoglobin 26.6 PG (27.0-31.0) L Mean Corpuscular Hemoglobin Concent 31.2 G/DL (32.0-36.0) L Red Cell Distribution Width 16.5 % (11.6-14.8) H Platelet Count 225 K/UL (150-450) Mean Platelet Volume 6.7 FL (6.5-10.1) Neutrophils (%) (Auto) 46.9 % (45.0-75.0) Lymphocytes (%) (Auto) 34.8 % (20.0-45.0) Monocytes (%) (Auto) 13.6 % (1.0-10.0) H Eosinophils (%) (Auto) 2.2 % (0.0-3.0) Basophils (%) (Auto) 2.4 % (0.0-2.0) H Sodium Level 140 MMOL/L (136-145) Potassium Level 3.1 MMOL/L (3.5-5.1) L Chloride Level 108 MMOL/L (98-107) H Carbon Dioxide Level 22 MMOL/L (21-32) Anion Gap 10 mmol/L (5-15) Blood Urea Nitrogen 8 mg/dL (7-18) Creatinine 0.5 MG/DL (0.55-1.30) L Estimat Glomerular Filtration Rate mL/min (>60) Glucose Level 86 MG/DL (74-106) Calcium Level 8.3 MG/DL (8.5-10.1) L Phosphorus Level 3.2 MG/DL (2.5-4.9) Magnesium Level 2.1 MG/DL (1.8-2.4) Total Bilirubin 0.3 MG/DL (0.2-1.0) Direct Bilirubin < 0.1 MG/DL (0.0-0.3) Aspartate Amino Transf (AST/SGOT) 25 U/L (15-37) Alanine Aminotransferase (ALT/SGPT) 10 U/L (12-78) L Alkaline Phosphatase 121 U/L (46-116) H Total Protein 5.7 G/DL (6.4-8.2) L Albumin 2.3 G/DL (3.4-5.0) L Assessment Post-op Diagnosis perforated prepyloric gastric ulcer Plan Problems: (1) Peritonitis Assessment & Plan: 84F with perforated abdominal viscus likely gastric perforation based on CT findings s/p imelda patch recovering labs improved exam improved advance diet anna removed CT and US noted repeat CT noted Unusual fluid and phlegmon changes seen in the right adnexal region. Comparison with prior study of 03/27/2019 is difficult, due to lack of IV contrast administration currently. However, there appears to be likely decreased discrete fluid but is perhaps slightly increased phlegmon component. In addition, the appendix appears distended with fluid currently but intact. The significance of this finding and he of the surrounding abnormalities is uncertain. There is also a tiny 13 mm collection in the right perirectal region which is unchanged Persistent distention of the endometrium with fluid Slightly increased infiltration of the omental fat adjacent to the distal greater curvature of the stomach without discrete fluid collection. This may represent progressive postsurgical scarring. Other findings as noted, including degenerative spondylosis, left hip prosthesis , old healed left inferior pubic ramus fracture abd fluid collection possible abscess unable to drain via IR can consider surgical drainage but would be high risk and with morbidity and mortality risk given age and medical condition family aware plan for medical therapy with IV abx given stable improving with medical management labs improved exam benign will monitor thank you (2) Perforated abdominal viscus Mike Sheth Apr 13, 2019 21:40
[2019-04-14] VITALS: BP 135/74
[2019-04-14 04:00] VITALS: BP 130/79
[2019-04-14] MEDS: metroNIDAZOLE 500mg tab ORAL SCH ×3 (06:28→22:06)
[2019-04-14] MEDS: NovoLOG Insulin Flexpen SUBQ SCH ×4 (06:36→21:20)
[2019-04-14 06:39] LABS: BASOPHILS % (AUTO) 1.9 % (0.0-2.0); EOSINOPHILS % (AUTO) 2.6 % (0.0-3.0); HEMATOCRIT 31.2 % (37.0-47.0); HEMOGLOBIN 9.7 G/DL (12.0-16.0); MEAN CORPUSCULAR VOLUME 86 FL (80-99); MONOCYTES % (AUTO) 12.9 % (1.0-10.0); NEUTROPHILS % (AUTO) 48.5 % (45.0-75.0); PLATELET COUNT 220 K/UL (150-450); RED BLOOD COUNT 3.62 M/UL (4.20-5.40); RED CELL DISTRIBUTION WIDTH 16.6 % (11.6-14.8); WHITE BLOOD COUNT 4.9 K/UL (4.8-10.8)
[2019-04-14 06:56] LABS: ANION GAP 10 mmol/L (5-15); BLOOD UREA NITROGEN 6 mg/dL (7-18); CALCIUM 8.8 MG/DL (8.5-10.1); CARBON DIOXIDE 20 MMOL/L (21-32); CHLORIDE 108 MMOL/L (98-107); CREATININE 0.5 MG/DL (0.55-1.30); POTASSIUM 4.3 MMOL/L (3.5-5.1); SODIUM 138 MMOL/L (136-145)
--- NOTE | 2019-04-14 07:35 | NUR ---
NURSE NOTES: WALKING ROUNDS DONE WITH OUTGOING RN. PATIENT AWAKE UP TO CHAIR FOR BREAKFAST.QUESTIONS ANSWERED, NEEDS MET. DISCUSSED PLAN OF CARE FOR THE DAY. ACKNOWLEDGED UNDERSTANDING. CALL LIGHT WITHIN REACH. PATIENT REMINDED TO USE CALL LIGHT FOR ASSISTANCE. RETURN DEMONSTRATION SUCCESSFUL.
--- NOTE | 2019-04-14 07:37 | NUR ---
HAND-OFF: Report given to SARAI Bishop. Notified of AM diabetes meds not given. Patient hasn't been eating that much.
[2019-04-14 08:00] VITALS: BP 121/67
[2019-04-14] MEDS: GlipiZIDE 5mg tab ORAL SCH ×2 (08:59→17:57)
[2019-04-14] MEDS: Cefepime HCl 1 GM in D5W 55 ML IVPB SCH (09:03)
--- NOTE | 2019-04-14 10:30 | NUR ---
NURSE NOTES: UPON DOING HEAD TO TOE ASSESSMENT NOTED PATIENT WITH 2 TO 3 PLUS BLE EDEMA. WITH LEFT FOOT PLUS 2 EDEMA. UPON PALPATION PATIENT HAS PAIN. NOTIFIED MD . ORDERS RECEIVED. PATIENT/ SON MADE AWARE.
--- NOTE | 2019-04-14 10:45 | NUR ---
NURSE NOTES: NOTED DISCOLORATION TO BILATERAL BUTTOCK AREA OVER BONY PROMINENCES. WOUND CARE CONSULT INITIATED. INITIAL PICTURE TAKENED ON 03/25/19.SHANE SCOTT LVN NOTIFIED.
--- NOTE | 2019-04-14 11:45 | NUR ---
NURSE NOTES: BLE VENOUS DUPLEX ORDERED AND DONE AT BEDSIDE BY ALYSE. RESULTS SHOW LLE DVT. DR. BROOKE NOTIFIED. NEW MED ORDER RECEIVED. HEPARIN GTT TO START. NEW WEIGHT OBTAINED. PATIENT AND SON MADE AWARE.
[2019-04-14 12:00] VITALS: BP 128/65
[2019-04-14] MEDS ORDERED: Heparin 25,000u/D5W 500ml 500 ML IV SCH ×2 (12:30→20:02)
[2019-04-14] MEDS ORDERED: Heparin 5000 units/ml inj IV SCH ×2 (12:30→20:01)
[2019-04-14 12:54] LABS: BASOPHILS % (AUTO) 1.8 % (0.0-2.0); EOSINOPHILS % (AUTO) 1.4 % (0.0-3.0); HEMATOCRIT 35.1 % (37.0-47.0); HEMOGLOBIN 10.9 G/DL (12.0-16.0); LYMPHOCYTES % (AUTO) 37.5 % (20.0-45.0); MEAN CORPUSCULAR VOLUME 86 FL (80-99); MONOCYTES % (AUTO) 11.7 % (1.0-10.0); NEUTROPHILS % (AUTO) 47.7 % (45.0-75.0); PLATELET COUNT 257 K/UL (150-450); RED BLOOD COUNT 4.09 M/UL (4.20-5.40); WHITE BLOOD COUNT 5.8 K/UL (4.8-10.8)
--- NOTE | 2019-04-14 12:57 | Infectious Diseases Prog Note ---
Assessment/Plan Assessment/Plan A: Fever, SP Leukocytosis, -S-p- Probable Sepsis- 2ry to likely intraabdominal abscess- ?source (post-op complication vs gynaecological oncologist or sigmoid origin) -04/13 Sp Unusual fluid and phlegmon changes seen in the right adnexal region. Comparison with prior study of 03/27/2019 is difficult, due to lack of IV contrast administration currently. However, there appears to be likely decreased discrete fluid but is perhaps slightly increased phlegmon component. In addition, the appendix appears distended with fluid currently but intact. The significance of this finding and he of the surrounding abnormalities is uncertain. There is also a tiny 13 mm collection in the right perirectal region which is unchanged Persistent distention of the endometrium with fluid Slightly increased infiltration of the omental fat adjacent to the distal greater curvature of the stomach without discrete fluid collection. This may represent progressive postsurgical scarring. 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 Right adnexal region irregular fluid collection, corresponding to findings reported on recent CT scan. This is contiguous with an immediately adjacent segment of bowel.This likewise corresponds to findings on recent CT. Note that the fluid collection and extent are better delineated on the prior study. Nonvisualized left ovary -CT abd/p: Markedly thickened and fluid-filled endometrium. 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 Complex multilobulated fluid collection with areas of enhancing soft tissue in the right adnexal region. This measures 5.5 x 7 x 3.9 cm. There is also a second tiny collection adjacent to the distal rectum. One possible etiology is, given the above finding, a tubo-ovarian abscess, related to retrograde propagation of endometritis. A second possibility is that this represents acute diverticulitis with peridiverticular abscess, given the close relationship with the distal sigmoid colon. A third possibility is this represents an abscess related to infected pelvic fluid from the prior gastric perforation, as the previous exam did demonstrate a small amount of free fluid in the pelvis. Finally, given the presence of the appendix (which isprominent in caliber) at the edge of the collection, this could represent perforated acute distal appendicitis. However, this is deemed less likely. Evidence of interim repair of previously demonstrated perforated gastric ulcer. No evidence of contrast leakage. No abnormal fluid collection at the operative site. Colonic diverticulosis. Slight rim enhancement of the gallbladder. Slight pericholecystic fluid. However, the gallbladder is nondistended, so doubt significance of this. Bilateral basilar pulmonary parenchymal groundglass opacity, likely on the basis of mild pulmonary edema Perforated pre-pyloric gastric ulcer -03/15 s/p UGI series: Negative for postoperative leak -03/10 SP 03/10 SP Exploratory Laparotomy, Abdominal washout. Partial omentectomy. Shane patch for repair of perforated pre-pyloric ulcer. -03/10 CT abd/p: Free intraperitoneal gas. Etiology not completely certain, but gas within and extending from the anterior gastric antral wall is suspicious for a perforated gastric ulcer. Perforated descending colon diverticulitis also possible but deemed much less likely. Free intraperitoneal fluid, presumably related to the above. Fatty liver. Basilar pulmonary parenchymal groundglass opacities. This could indicate pulmonary edema, among other possibilities. Subcentimeter low-attenuation renal lesions, too small to characterize, most likely benign simple cyst. No further follow-up necessary. 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 Acute encephalopathy, Sp -CT head: Chronic and age-related changes. Negative for acute intracranial bleed or mass effect VDRF, post-op; extubated 03/12 DARRON, SP Dm2 HTN Plan: -Cont Cefepime #27 and PO Flagyl #22 for intraabdominal abscess while in house - Will recommend a total 6 weeks of IV ertapenem; end date 05/01/19 - Monitor weekly CBC, CMP - Would not recommend PO abx in this case lack of cultures and unclear nature of the infection. -03/22 SP Fluconazole #10 -03/15 SP Zosyn #6 -03/10 SP IV Vancomycin #1, Ancef x1 -f/u cx -Monitor CBC/CMP, temperatures -Sx f/u -wound care per surgical team -aspiration precautions -Discussed with Dr Sheth. re CT findings Subjective Allergies: Coded Allergies: No Known Allergies (Unverified , 03/10/19) Subjective comfortable Sp CT Objective Vital Signs Last 24 Hour Vital Signs Date Time Temp Pulse Resp B/P (MAP) Pulse Ox O2 Delivery O2 Flow Rate FiO2 04/14/19 12:00 97.8 84 18 128/65 (86) 96 04/14/19 09:00 Room Air Room Air 04/14/19 08:00 97.7 88 20 121/67 (85) 97 04/14/19 04:00 97.4 99 18 130/79 (96) 99 04/14/19 00:00 97.6 87 18 135/74 (94) 97 04/13/19 21:00 Room Air 04/13/19 20:00 98.0 91 19 117/73 (88) 97 04/13/19 16:00 98.4 89 20 129/68 (88) 96 Height (Feet): 5 Height (Inches): 0.00 Weight (Pounds): 99 HEENT: atraumatic Respiratory/Chest: normal breath sounds Cardiovascular: regularly irregular Abdomen: no organomegaly Skin: no lesions Laboratory Tests Test 04/14/19 05:15 04/14/19 12:35 White Blood Count 4.9 K/UL (4.8-10.8) Pending Red Blood Count 3.62 M/UL (4.20-5.40) L Pending Hemoglobin 9.7 G/DL (12.0-16.0) L Pending Hematocrit 31.2 % (37.0-47.0) L Pending Mean Corpuscular Volume 86 FL (80-99) Pending Mean Corpuscular Hemoglobin 26.7 PG (27.0-31.0) L Pending Mean Corpuscular Hemoglobin Concent 31.0 G/DL (32.0-36.0) L Pending Red Cell Distribution Width 16.6 % (11.6-14.8) H Pending Platelet Count 220 K/UL (150-450) Pending Mean Platelet Volume 6.4 FL (6.5-10.1) L Pending Neutrophils (%) (Auto) 48.5 % (45.0-75.0) Pending Lymphocytes (%) (Auto) 34.0 % (20.0-45.0) Pending Monocytes (%) (Auto) 12.9 % (1.0-10.0) H Pending Eosinophils (%) (Auto) 2.6 % (0.0-3.0) Pending Basophils (%) (Auto) 1.9 % (0.0-2.0) Pending Sodium Level 138 MMOL/L (136-145) Potassium Level 4.3 MMOL/L (3.5-5.1) Chloride Level 108 MMOL/L (98-107) H Carbon Dioxide Level 20 MMOL/L (21-32) L Anion Gap 10 mmol/L (5-15) Blood Urea Nitrogen 6 mg/dL (7-18) L Creatinine 0.5 MG/DL (0.55-1.30) L Estimat Glomerular Filtration Rate mL/min (>60) Glucose Level 94 MG/DL (74-106) Calcium Level 8.8 MG/DL (8.5-10.1) Prothrombin Time Pending Prothromb Time International Ratio Pending Activated Partial Thromboplast Time Pending Current Medications Medications (Trade) Dose Ordered Sig/Shantelle Route PRN Reason Start Time Stop Time Status Last Admin Dose Admin Acetaminophen (Tylenol) 650 mg Q4H PRN ORAL Mild Pain/Temp > 100.5 03/19/19 16:00 04/18/19 15:59 03/31/19 21:22 Barium Sulfate (Readi-Cat 2) 450 ml PRN PRN ORAL Radiology Procedure 03/27/19 13:30 04/26/19 13:29 04/13/19 08:21 Cefepime HCl 1 gm/ Dextrose 55 ml @ 110 mls/hr DAILY IVPB 03/30/19 09:00 04/17/19 08:59 04/14/19 09:03 Dextrose (Dextrose 50%) 25 ml Q30M PRN IV Hypoglycemia 03/23/19 08:45 04/22/19 08:44 Dextrose (Dextrose 50%) 50 ml Q30M PRN IV Hypoglycemia 03/23/19 08:45 04/22/19 08:44 Glipizide (Glucotrol) 5 mg BIAC ORAL 03/21/19 16:30 04/20/19 16:29 04/14/19 08:59 Heparin Sodium (Porcine) (Heparin 5000 units/ml) 2,000 units ONCE IV 04/14/19 12:30 04/14/19 13:30 Heparin Sodium/ Dextrose 500 ml @ 16.166 mls/ hr ADJUST PER PROTOCOL IV 04/14/19 12:30 05/14/19 12:29 Insulin Aspart (NovoLOG) BEFORE MEALS AND HS SUBQ 03/23/19 11:30 04/22/19 11:29 04/14/19 11:40 Magnesium Hydroxide (Mom) 30 ml DAILYPRN PRN ORAL Constipation 04/01/19 17:30 05/01/19 17:29 04/01/19 17:42 Metronidazole (Flagyl) 500 mg Q8HR ORAL 03/23/19 14:00 04/17/19 13:59 04/14/19 06:28 Nateglinide (Starlix) 120 mg TIAC ORAL 03/23/19 11:30 04/22/19 11:29 04/14/19 11:39 Pantoprazole (Protonix) 40 mg EVERY 12 HOURS ORAL 03/16/19 21:00 04/15/19 20:59 04/14/19 08:58 Potassium Chloride (K-Dur) 40 meq BID ORAL 04/13/19 18:00 05/13/19 17:59 04/14/19 08:59 Smooth Weinstein MD Apr 14, 2019 12:57
[2019-04-14 13:03] LABS: INR 1.1 (0.9-1.1)
--- NOTE | 2019-04-14 13:30 | NUR ---
NURSE NOTES: PATIENT SEEN BY TYLER DAVID LVN AT BEDSIDE. NEW PHOTO OBTAINED. NEW WOUND CARE ORDERS RECEIVED. PLEASE"OTHER NURSING " TO OBTAIN ORDERS TO CARRY OUT.
--- NOTE | 2019-04-14 14:30 | NUR ---
NURSE NOTES: HEPARIN DRIP STARTED PER OM PROTOCOL. TOLERATING INFUSION. PTT ORDERED TO BE DRAWN TONIGHT. WILL ENDORSE TO NIGHT RN.
--- NOTE | 2019-04-14 15:53 | Internal Med Progress Note ---
Subjective Date of Service: Apr 14, 2019 Physician Name Zen Paige Attending Physician Marcos Silva MD Current Medications Medications (Trade) Dose Ordered Sig/Shantelle Route PRN Reason Start Time Stop Time Status Last Admin Dose Admin Acetaminophen (Tylenol) 650 mg Q4H PRN ORAL Mild Pain/Temp > 100.5 03/19/19 16:00 04/18/19 15:59 03/31/19 21:22 Barium Sulfate (Readi-Cat 2) 450 ml PRN PRN ORAL Radiology Procedure 03/27/19 13:30 04/26/19 13:29 04/13/19 08:21 Cefepime HCl 1 gm/ Dextrose 55 ml @ 110 mls/hr DAILY IVPB 03/30/19 09:00 04/17/19 08:59 04/14/19 09:03 Dextrose (Dextrose 50%) 25 ml Q30M PRN IV Hypoglycemia 03/23/19 08:45 04/22/19 08:44 Dextrose (Dextrose 50%) 50 ml Q30M PRN IV Hypoglycemia 03/23/19 08:45 04/22/19 08:44 Glipizide (Glucotrol) 5 mg BIAC ORAL 03/21/19 16:30 04/20/19 16:29 04/14/19 08:59 Heparin Sodium/ Dextrose 500 ml @ 16.166 mls/ hr ADJUST PER PROTOCOL IV 04/14/19 12:30 05/14/19 12:29 04/14/19 13:18 Insulin Aspart (NovoLOG) BEFORE MEALS AND HS SUBQ 03/23/19 11:30 04/22/19 11:29 04/14/19 11:40 Magnesium Hydroxide (Mom) 30 ml DAILYPRN PRN ORAL Constipation 04/01/19 17:30 05/01/19 17:29 04/01/19 17:42 Metronidazole (Flagyl) 500 mg Q8HR ORAL 03/23/19 14:00 04/17/19 13:59 04/14/19 14:32 Nateglinide (Starlix) 120 mg TIAC ORAL 03/23/19 11:30 04/22/19 11:29 04/14/19 11:39 Pantoprazole (Protonix) 40 mg EVERY 12 HOURS ORAL 03/16/19 21:00 04/15/19 20:59 04/14/19 08:58 Potassium Chloride (K-Dur) 40 meq BID ORAL 04/13/19 18:00 05/13/19 17:59 04/14/19 08:59 Allergies: Coded Allergies: No Known Allergies (Unverified , 03/10/19) ROS Limited/Unobtainable: No Constitutional: Reports: no symptoms HEENT: Reports: no symptoms Cardiovascular: Reports: no symptoms Respiratory: Reports: no symptoms Gastrointestinal/Abdominal: Reports: no symptoms Genitourinary: Reports: no symptoms Neurologic/Psychiatric: Reports: no symptoms Subjective 84 YO F admitted with abdominal pain. S/P exploratory laparotomy 03/10/19. Now intra-abdominal abscess. Cover for Int Marcus-Dr Silva. Objective Last Vital Signs Date Time Temp Pulse Resp B/P (MAP) Pulse Ox O2 Delivery O2 Flow Rate FiO2 04/14/19 12:00 97.8 84 18 128/65 (86) 96 04/14/19 09:00 Room Air Room Air Laboratory Tests Test 04/14/19 05:15 04/14/19 12:35 White Blood Count 4.9 K/UL (4.8-10.8) 5.8 K/UL (4.8-10.8) Red Blood Count 3.62 M/UL (4.20-5.40) L 4.09 M/UL (4.20-5.40) L Hemoglobin 9.7 G/DL (12.0-16.0) L 10.9 G/DL (12.0-16.0) L Hematocrit 31.2 % (37.0-47.0) L 35.1 % (37.0-47.0) L Mean Corpuscular Volume 86 FL (80-99) 86 FL (80-99) Mean Corpuscular Hemoglobin 26.7 PG (27.0-31.0) L 26.6 PG (27.0-31.0) L Mean Corpuscular Hemoglobin Concent 31.0 G/DL (32.0-36.0) L 31.0 G/DL (32.0-36.0) L Red Cell Distribution Width 16.6 % (11.6-14.8) H 17.0 % (11.6-14.8) H Platelet Count 220 K/UL (150-450) 257 K/UL (150-450) Mean Platelet Volume 6.4 FL (6.5-10.1) L 6.7 FL (6.5-10.1) Neutrophils (%) (Auto) 48.5 % (45.0-75.0) 47.7 % (45.0-75.0) Lymphocytes (%) (Auto) 34.0 % (20.0-45.0) 37.5 % (20.0-45.0) Monocytes (%) (Auto) 12.9 % (1.0-10.0) H 11.7 % (1.0-10.0) H Eosinophils (%) (Auto) 2.6 % (0.0-3.0) 1.4 % (0.0-3.0) Basophils (%) (Auto) 1.9 % (0.0-2.0) 1.8 % (0.0-2.0) Sodium Level 138 MMOL/L (136-145) Potassium Level 4.3 MMOL/L (3.5-5.1) Chloride Level 108 MMOL/L (98-107) H Carbon Dioxide Level 20 MMOL/L (21-32) L Anion Gap 10 mmol/L (5-15) Blood Urea Nitrogen 6 mg/dL (7-18) L Creatinine 0.5 MG/DL (0.55-1.30) L Estimat Glomerular Filtration Rate mL/min (>60) Glucose Level 94 MG/DL (74-106) Calcium Level 8.8 MG/DL (8.5-10.1) Prothrombin Time 11.9 SEC (9.30-11.50) H Prothromb Time International Ratio 1.1 (0.9-1.1) Activated Partial Thromboplast Time 26 SEC (23-33) Intake and Output 04/13/19 04/14/19 19:00 07:00 Intake Total 300 ml Balance 300 ml Intake Oral 300 ml # Voids 2 1 Objective PHYSICAL EXAMINATION: GENERAL: The patient is a well developed, well nourished female who is intubated and sedated. HEENT: Eyes, pupils equal and responsive to light and accommodation. Extraocular movements are intact. NECK: Supple without lymphadenopathy. CHEST: Nasc canula; Few diffuse wheezes bilaterally. Otherwise, without wheezes or rales. CARDIOVASCULAR: Regular rhythm rate. S1-S2 are normal without murmurs, rubs, or gallops. ABDOMEN: NGT; Soft, nontender with decreased bowel sounds. No evidence of hepatosplenomegaly. no rebound or guarding noted. EXTREMITIES: Negative for clubbing, cyanosis, edema. RECTAL/GENITAL: Not performed. NEUROLOGIC: Cranial nerves II through XII are grossly intact without focal deficits. Assessment/Plan Assessment/Plan ASSESSMENT: This is an 84-year-old female. 1. Perforated gastric ulcer 2. Abdominal pain. 3. Nausea with vomiting. 4. Diabetes type 2. 5. Hypertension. 6. Post Op fever-resolved 7. Leukocytosis 8. Intraabdominal abscess TREATMENT: 1. Perforated gastric ulcer. A General Surgery consultation has been obtained with Dr. Sheth. S/P exploratory laparotomy 03/10/19=perforated Pre pyloric ulcer. Tolerating regular diet; NGT discontinued per surgery 2. Diabetes type 2. NovoLog sliding scale has been instituted. 3. Hypertension. The patient is currently hypotensive. 4. Respiratory failure. S/P extubation 03/12/19. A Pulmonary consultation has been obtained with Dr. Bibiana Pennington. 5. Med/surg 6. ABX=Ertapenem for 6 weeks-end date 05/01/19 per ID 7. Surgical intervention on hold for intraabdominal abscess-see surgery note. Will require 6 weeks of ertapenem per ID 8. WBC now normal; Discharge planning 9. CT abdomen/pelvis results from 04/13/19=right adnexal phlegmon Zen Paige MD Apr 14, 2019 15:53
[2019-04-14 16:00] VITALS: BP 120/70
--- NOTE | 2019-04-14 17:43 | Surgery Progress Note ---
Surgery Progress Note Subjective Procedure Performed ex lap with imelda patch, washout, omentectomy Symptoms: pain absent, tolerating diet, voiding well, passing flatus, BM Objective Last 24 Hour Vital Signs Date Time Temp Pulse Resp B/P (MAP) Pulse Ox O2 Delivery O2 Flow Rate FiO2 04/14/19 16:00 97.5 80 20 120/70 (87) 95 04/14/19 12:00 97.8 84 18 128/65 (86) 96 04/14/19 09:00 Room Air Room Air 04/14/19 08:00 97.7 88 20 121/67 (85) 97 04/14/19 04:00 97.4 99 18 130/79 (96) 99 04/14/19 00:00 97.6 87 18 135/74 (94) 97 04/13/19 21:00 Room Air 04/13/19 20:00 98.0 91 19 117/73 (88) 97 I&O Intake and Output 04/13/19 04/14/19 19:00 07:00 Intake Total 300 ml Balance 300 ml Intake Oral 300 ml # Voids 2 1 Wound: clean Cardiovascular: RSR Respiratory: clear Abdomen: soft, flat, non-tender, present bowel sounds, non-distended Extremities: edema, no edema, no tenderness, no cyanosis Laboratory Tests Test 04/14/19 05:15 04/14/19 12:35 White Blood Count 4.9 K/UL (4.8-10.8) 5.8 K/UL (4.8-10.8) Red Blood Count 3.62 M/UL (4.20-5.40) L 4.09 M/UL (4.20-5.40) L Hemoglobin 9.7 G/DL (12.0-16.0) L 10.9 G/DL (12.0-16.0) L Hematocrit 31.2 % (37.0-47.0) L 35.1 % (37.0-47.0) L Mean Corpuscular Volume 86 FL (80-99) 86 FL (80-99) Mean Corpuscular Hemoglobin 26.7 PG (27.0-31.0) L 26.6 PG (27.0-31.0) L Mean Corpuscular Hemoglobin Concent 31.0 G/DL (32.0-36.0) L 31.0 G/DL (32.0-36.0) L Red Cell Distribution Width 16.6 % (11.6-14.8) H 17.0 % (11.6-14.8) H Platelet Count 220 K/UL (150-450) 257 K/UL (150-450) Mean Platelet Volume 6.4 FL (6.5-10.1) L 6.7 FL (6.5-10.1) Neutrophils (%) (Auto) 48.5 % (45.0-75.0) 47.7 % (45.0-75.0) Lymphocytes (%) (Auto) 34.0 % (20.0-45.0) 37.5 % (20.0-45.0) Monocytes (%) (Auto) 12.9 % (1.0-10.0) H 11.7 % (1.0-10.0) H Eosinophils (%) (Auto) 2.6 % (0.0-3.0) 1.4 % (0.0-3.0) Basophils (%) (Auto) 1.9 % (0.0-2.0) 1.8 % (0.0-2.0) Sodium Level 138 MMOL/L (136-145) Potassium Level 4.3 MMOL/L (3.5-5.1) Chloride Level 108 MMOL/L (98-107) H Carbon Dioxide Level 20 MMOL/L (21-32) L Anion Gap 10 mmol/L (5-15) Blood Urea Nitrogen 6 mg/dL (7-18) L Creatinine 0.5 MG/DL (0.55-1.30) L Estimat Glomerular Filtration Rate mL/min (>60) Glucose Level 94 MG/DL (74-106) Calcium Level 8.8 MG/DL (8.5-10.1) Prothrombin Time 11.9 SEC (9.30-11.50) H Prothromb Time International Ratio 1.1 (0.9-1.1) Activated Partial Thromboplast Time 26 SEC (23-33) Assessment Post-op Diagnosis perforated prepyloric gastric ulcer Plan Problems: (1) Peritonitis Assessment & Plan: 84F with perforated abdominal viscus likely gastric perforation based on CT findings s/p imelda patch recovering labs improved exam improved advance diet anna removed CT and US noted repeat CT noted Unusual fluid and phlegmon changes seen in the right adnexal region. Comparison with prior study of 03/27/2019 is difficult, due to lack of IV contrast administration currently. However, there appears to be likely decreased discrete fluid but is perhaps slightly increased phlegmon component. In addition, the appendix appears distended with fluid currently but intact. The significance of this finding and he of the surrounding abnormalities is uncertain. There is also a tiny 13 mm collection in the right perirectal region which is unchanged Persistent distention of the endometrium with fluid Slightly increased infiltration of the omental fat adjacent to the distal greater curvature of the stomach without discrete fluid collection. This may represent progressive postsurgical scarring. Other findings as noted, including degenerative spondylosis, left hip prosthesis , old healed left inferior pubic ramus fracture abd fluid collection possible abscess unable to drain via IR can consider surgical drainage but would be high risk and with morbidity and mortality risk given age and medical condition family aware plan for medical therapy with IV abx given stable improving with medical management labs improved exam benign will monitor thank you (2) Perforated abdominal viscus Additional Comments repeat labs Mike Alonzo Apr 14, 2019 17:43
--- NOTE | 2019-04-14 19:35 | NUR ---
HAND-OFF: Report given to BRITTANI COOK RN.
--- NOTE | 2019-04-14 19:40 | NUR ---
NURSE NOTES: Received report from SARAI Bishop. Patient sitting in chair, encouraged to shift weight while sitting in chair. IV Heparin drip running at 16.166 ml/hr in L hand. Denies any pain. Encouraged to use incentive spirometer. Discussed plans to have a bath tonight, V[facility]ERIN[facility] POULTRY aware. Encouraged to call as needed. Bed in low position, side rails up x2, call light within reach. Will continue to monitor.
[2019-04-14 20:00] VITALS: BP 128/79
--- NOTE | 2019-04-14 21:30 | NUR ---
NURSE NOTES: Patient states she cannot have milk products, states she gets loose stools after having milk. Will adjust diet accordingly.
[2019-04-15] VITALS: BP 144/87
[2019-04-15 03:06] LABS: BASOPHILS % (AUTO) 2.8 % (0.0-2.0); EOSINOPHILS % (AUTO) 2.9 % (0.0-3.0); HEMATOCRIT 31.7 % (37.0-47.0); HEMOGLOBIN 9.9 G/DL (12.0-16.0); LYMPHOCYTES % (AUTO) 46.9 % (20.0-45.0); MEAN CORPUSCULAR VOLUME 85 FL (80-99); MONOCYTES % (AUTO) 13.2 % (1.0-10.0); NEUTROPHILS % (AUTO) 34.3 % (45.0-75.0); PLATELET COUNT 252 K/UL (150-450); RED BLOOD COUNT 3.75 M/UL (4.20-5.40); RED CELL DISTRIBUTION WIDTH 16.2 % (11.6-14.8); WHITE BLOOD COUNT 5.7 K/UL (4.8-10.8)
[2019-04-15 03:19] LABS: ALANINE AMINOTRANSFERASE 9 U/L (12-78); ALBUMIN 2.4 G/DL (3.4-5.0); ALBUMIN/GLOBULIN RATIO 0.7 (1.0-2.7); ALKALINE PHOSPHATASE 119 U/L (46-116); ANION GAP 10 mmol/L (5-15); ASPARTATE AMINO TRANSFERASE 23 U/L (15-37); BILIRUBIN,TOTAL 0.3 MG/DL (0.2-1.0); BLOOD UREA NITROGEN 6 mg/dL (7-18); CALCIUM 8.8 MG/DL (8.5-10.1); CARBON DIOXIDE 21 MMOL/L (21-32); CHLORIDE 108 MMOL/L (98-107); CREATININE 0.6 MG/DL (0.55-1.30); POTASSIUM 4.2 MMOL/L (3.5-5.1); SODIUM 139 MMOL/L (136-145)
--- NOTE | 2019-04-15 03:34 | NUR ---
NURSE NOTES: Morning labs were drawn at the same time as timed PTT. Glucose 68. Patient asymptomatic, provided snack.
--- NOTE | 2019-04-15 03:34 | NUR ---
Labs drawn at 0258 am, called lab and requested that aPTT be resulted first for Heparin drip adjustments.
[2019-04-15 03:52] LABS: INR 1.2 (0.9-1.1)
[2019-04-15 04:00] VITALS: BP 123/60
--- NOTE | 2019-04-15 04:00 | NUR ---
NURSE NOTES: PTT 111, Heparin drip held according to protocol. Patient assisted to bathroom, denies any pain. Repositioned in bed for comfort. Noted decrease in edema bilat lower extremities.
[2019-04-15] MEDS: Heparin 25,000u/D5W 500ml 500 ML IV SCH ×2 (04:33→11:51)
[2019-04-15] MEDS: GlipiZIDE 5mg tab ORAL SCH ×2 (06:30→17:06)
--- NOTE | 2019-04-15 06:30 | NUR ---
NURSE NOTES: Regarding AM diabetic meds: morning labs (at 3 am) glucose was 68, patient was given orange juice, morning blood glucose was 140, insuling was given. Consulted with charge nurse, advised not to give AM diabetic meds.
[2019-04-15] MEDS: metroNIDAZOLE 500mg tab ORAL SCH ×3 (06:52→21:31)
[2019-04-15] MEDS: NovoLOG Insulin Flexpen SUBQ SCH ×4 (06:59→21:32)
--- NOTE | 2019-04-15 07:30 | NUR ---
NURSE NOTES: Pt lying in bed w/bed in lowest position and call light within reach. Pt A&Ox3, VSS, and in no apparent distress at this time. IV site intact/asymptomatic w/heparin drip running at 17 units/kg/hr; BLE edema noted; and steri-strips C/D/I. Encouraged pt to eat more to aid in wound healing. Will continue to monitor.
--- NOTE | 2019-04-15 07:30 | NUR ---
HAND-OFF: Report given to SARAI Keller.
[2019-04-15 08:00] VITALS: BP 117/65
--- NOTE | 2019-04-15 08:38 | NUR ---
NURSE NOTES: ADDENDUM: WOUND CARE NEW ORDERS RECEIVED. PLACED TRIAD AND OPTIFOAM TO BILATERAL BUTTOCKS. MOISTURE BARRIER CREAM APPLIED TO SURROUNDING AREAS AND OPTIFOAM PLACED ON LEFT ISCHIAL BONE. PATIENT SITTING MOST OF THE DAY WITH TWO PILLOWS UNDERNEATH BUTTOCKS.PATIENT ABLE TO SHIFT WEIGHT WHILE SITTING.UP WITH WALKER X1 ASSIST FREQUENTLY. GAIT MOBILITY IMPROVED.
[2019-04-15] MEDS: Cefepime HCl 1 GM in D5W 55 ML IVPB SCH (09:32)
--- NOTE | 2019-04-15 11:00 | NUR ---
NURSE NOTES: Per pharmacist, Heparin running at a therapeutic rate; placed order for timed PTT for tomorrow at 0400. Will continue to monitor.
[2019-04-15 12:00] VITALS: BP 141/80
--- NOTE | 2019-04-15 12:08 | Nephrology Progress Note ---
Assessment/Plan Problem List: (1) Perforated abdominal viscus (2) Hypokalemia (3) Hypomagnesemia (4) Diabetes mellitus (5) Anemia Assessment WBC rising Post lap on 03/10 Low K Low Phos Low Mag Anemia DM h/o HTN Plan add oral hypoglycemics for high BS DC IV change all to orals Mag and K and Phos IV as needed Anemia claudio Keep BP and BS in check per orders DC planning Subjective ROS Limited/Unobtainable: No Constitutional: Reports: malaise Objective Objective Last 24 Hour Vital Signs Date Time Temp Pulse Resp B/P (MAP) Pulse Ox O2 Delivery O2 Flow Rate FiO2 04/15/19 09:00 Room Air Room Air 04/15/19 08:00 98.5 103 18 117/65 (82) 97 04/15/19 04:00 98.2 99 16 123/60 (81) 98 04/15/19 00:00 98.6 99 16 144/87 (106) 98 04/14/19 21:00 Room Air Room Air 04/14/19 20:00 98.7 91 16 128/79 (95) 97 04/14/19 16:00 97.5 80 20 120/70 (87) 95 Intake and Output 04/14/19 04/15/19 18:59 06:59 Intake Total 615.830 ml 240 ml Balance 615.830 ml 240 ml Intake Oral 480 ml 240 ml IV Total 135.830 ml # Voids 3 6 # Bowel Movements 1 Laboratory Tests 04/14/19 12:35: White Blood Count 5.8, Red Blood Count 4.09L, Hemoglobin 10.9L, Hematocrit 35.1L , Mean Corpuscular Volume 86, Mean Corpuscular Hemoglobin 26.6L, Mean Corpuscular Hemoglobin Concent 31.0L, Red Cell Distribution Width 17.0H, Platelet Count 257, Mean Platelet Volume 6.7, Neutrophils (%) (Auto) 47.7, Lymphocytes (%) (Auto) 37.5, Monocytes (%) (Auto) 11.7H, Eosinophils (%) (Auto) 1.4, Basophils (%) (Auto) 1.8, Prothrombin Time 11.9H, Prothromb Time International Ratio 1.1, Activated Partial Thromboplast Time 26 04/14/19 18:50: Activated Partial Thromboplast Time 54H 04/15/19 02:53: White Blood Count 5.7, Red Blood Count 3.75L, Hemoglobin 9.9L, Hematocrit 31.7L , Mean Corpuscular Volume 85, Mean Corpuscular Hemoglobin 26.3L, Mean Corpuscular Hemoglobin Concent 31.1L, Red Cell Distribution Width 16.2H, Platelet Count 252, Mean Platelet Volume 6.6, Neutrophils (%) (Auto) 34.3L, Lymphocytes (%) (Auto) 46.9H, Monocytes (%) (Auto) 13.2H, Eosinophils (%) (Auto ) 2.9, Basophils (%) (Auto) 2.8H, Prothrombin Time 12.7H, Prothromb Time International Ratio 1.2H, Activated Partial Thromboplast Time 111H, Erythrocyte Sedimentation Rate 98H, Sodium Level 139, Potassium Level 4.2, Chloride Level 108H, Carbon Dioxide Level 21, Anion Gap 10, Blood Urea Nitrogen 6L, Creatinine 0.6, Estimat Glomerular Filtration Rate , Glucose Level 68L, Calcium Level 8.8, Total Bilirubin 0.3, Aspartate Amino Transf (AST/SGOT) 23, Alanine Aminotransferase (ALT/SGPT) 9L, Alkaline Phosphatase 119H, C-Reactive Protein, Quantitative 0.8, Total Protein 5.9L, Albumin 2.4L, Globulin 3.5, Albumin/ Globulin Ratio 0.7L, Lipase 108 04/15/19 10:15: Activated Partial Thromboplast Time 65H Height (Feet): 5 Height (Inches): 0.00 Weight (Pounds): 99 General Appearance: no apparent distress Objective no change El Clark MD Apr 15, 2019 12:08
--- NOTE | 2019-04-15 12:27 | Internal Med Progress Note ---
Subjective Physician Name Marcos Silva Attending Physician Marcos Silva MD Current Medications Medications (Trade) Dose Ordered Sig/Shantelle Route PRN Reason Start Time Stop Time Status Last Admin Dose Admin Acetaminophen (Tylenol) 650 mg Q4H PRN ORAL Mild Pain/Temp > 100.5 03/19/19 16:00 04/18/19 15:59 03/31/19 21:22 Barium Sulfate (Readi-Cat 2) 450 ml PRN PRN ORAL Radiology Procedure 03/27/19 13:30 04/26/19 13:29 04/13/19 08:21 Cefepime HCl 1 gm/ Dextrose 55 ml @ 110 mls/hr DAILY IVPB 03/30/19 09:00 04/17/19 08:59 04/15/19 09:32 Dextrose (Dextrose 50%) 25 ml Q30M PRN IV Hypoglycemia 03/23/19 08:45 04/22/19 08:44 Dextrose (Dextrose 50%) 50 ml Q30M PRN IV Hypoglycemia 03/23/19 08:45 04/22/19 08:44 Glipizide (Glucotrol) 5 mg BIAC ORAL 03/21/19 16:30 04/20/19 16:29 04/14/19 17:57 Heparin Sodium/ Dextrose 500 ml @ 15.268 mls/ hr ADJUST PER PROTOCOL IV 04/15/19 04:30 05/14/19 20:01 04/15/19 11:51 Insulin Aspart (NovoLOG) BEFORE MEALS AND HS SUBQ 03/23/19 11:30 04/22/19 11:29 04/15/19 11:50 Magnesium Hydroxide (Mom) 30 ml DAILYPRN PRN ORAL Constipation 04/01/19 17:30 05/01/19 17:29 04/01/19 17:42 Metronidazole (Flagyl) 500 mg Q8HR ORAL 03/23/19 14:00 04/17/19 13:59 04/15/19 06:52 Nateglinide (Starlix) 120 mg TIAC ORAL 03/23/19 11:30 04/22/19 11:29 04/15/19 11:44 Pantoprazole (Protonix) 40 mg EVERY 12 HOURS ORAL 03/16/19 21:00 04/15/19 20:59 04/15/19 09:32 Potassium Chloride (K-Dur) 40 meq BID ORAL 04/13/19 18:00 05/13/19 17:59 04/15/19 09:32 Allergies: Coded Allergies: No Known Allergies (Unverified , 03/10/19) Subjective awake, alert, responsive, sitting up in the chair, denies any abdominal pain. Objective Last Vital Signs Date Time Temp Pulse Resp B/P (MAP) Pulse Ox O2 Delivery O2 Flow Rate FiO2 04/15/19 09:00 Room Air Room Air 04/15/19 08:00 98.5 103 18 117/65 (82) 97 Laboratory Tests Test 04/14/19 12:35 04/14/19 18:50 04/15/19 02:53 04/15/19 10:15 White Blood Count 5.8 K/UL (4.8-10.8) 5.7 K/UL (4.8-10.8) Red Blood Count 4.09 M/UL (4.20-5.40) L 3.75 M/UL (4.20-5.40) L Hemoglobin 10.9 G/DL (12.0-16.0) L 9.9 G/DL (12.0-16.0) L Hematocrit 35.1 % (37.0-47.0) L 31.7 % (37.0-47.0) L Mean Corpuscular Volume 86 FL (80-99) 85 FL (80-99) Mean Corpuscular Hemoglobin 26.6 PG (27.0-31.0) L 26.3 PG (27.0-31.0) L Mean Corpuscular Hemoglobin Concent 31.0 G/DL (32.0-36.0) L 31.1 G/DL (32.0-36.0) L Red Cell Distribution Width 17.0 % (11.6-14.8) H 16.2 % (11.6-14.8) H Platelet Count 257 K/UL (150-450) 252 K/UL (150-450) Mean Platelet Volume 6.7 FL (6.5-10.1) 6.6 FL (6.5-10.1) Neutrophils (%) (Auto) 47.7 % (45.0-75.0) 34.3 % (45.0-75.0) L Lymphocytes (%) (Auto) 37.5 % (20.0-45.0) 46.9 % (20.0-45.0) H Monocytes (%) (Auto) 11.7 % (1.0-10.0) H 13.2 % (1.0-10.0) H Eosinophils (%) (Auto) 1.4 % (0.0-3.0) 2.9 % (0.0-3.0) Basophils (%) (Auto) 1.8 % (0.0-2.0) 2.8 % (0.0-2.0) H Prothrombin Time 11.9 SEC (9.30-11.50) H 12.7 SEC (9.30-11.50) H Prothromb Time International Ratio 1.1 (0.9-1.1) 1.2 (0.9-1.1) H Activated Partial Thromboplast Time 26 SEC (23-33) 54 SEC (23-33) H 111 SEC (23-33) H 65 SEC (23-33) H Erythrocyte Sedimentation Rate 98 MM/HR (0-30) H Sodium Level 139 MMOL/L (136-145) Potassium Level 4.2 MMOL/L (3.5-5.1) Chloride Level 108 MMOL/L (98-107) H Carbon Dioxide Level 21 MMOL/L (21-32) Anion Gap 10 mmol/L (5-15) Blood Urea Nitrogen 6 mg/dL (7-18) L Creatinine 0.6 MG/DL (0.55-1.30) Estimat Glomerular Filtration Rate mL/min (>60) Glucose Level 68 MG/DL (74-106) L Calcium Level 8.8 MG/DL (8.5-10.1) Total Bilirubin 0.3 MG/DL (0.2-1.0) Aspartate Amino Transf (AST/SGOT) 23 U/L (15-37) Alanine Aminotransferase (ALT/SGPT) 9 U/L (12-78) L Alkaline Phosphatase 119 U/L (46-116) H C-Reactive Protein, Quantitative 0.8 mg/dL (0.00-0.90) Total Protein 5.9 G/DL (6.4-8.2) L Albumin 2.4 G/DL (3.4-5.0) L Globulin 3.5 g/dL Albumin/Globulin Ratio 0.7 (1.0-2.7) L Lipase 108 U/L (73-393) Intake and Output 04/14/19 04/15/19 18:59 06:59 Intake Total 615.830 ml 240 ml Balance 615.830 ml 240 ml Intake Oral 480 ml 240 ml IV Total 135.830 ml # Voids 3 6 # Bowel Movements 1 Objective General: No acute distress, awake and alert HEENT: NCAT, sclera anicteric, PERRL, EOMI. Neck: Supple, no significant jugular venous distention, Lungs: clear to auscultation bilaterally, no Wheeze or Rales. Heart: Regular rate and rhythm, normal S1/S2, no murmur Abdomen: soft, not tender, Not distended. midline surgical incision intact. Extremities: No Cyanosis , clubbing , Trace left ankle edema. Neuro: A&O x 3, Able to move all extremities Skin: warm, no rash. Assessment/Plan Assessment/Plan ASSESSMENT: This is an 84-year-old female. 1. Perforated abdominal viscus S/P Exploratory laparotomy, Partial omentectomy, and Shane patch for repair of perforated pre-pyloric ulcer (03/10/2019). 2. Acute respiratory Failure. 3. Nausea with vomiting. 4. Diabetes type 2. 5. Hypertension. TREATMENT: 1. Perforated abdominal viscus. A General Surgery consultation has been obtained with Dr. Sheth. S/P Exploratory laparotomy, Partial omentectomy, and Shane patch for repair of perforated pre-pyloric ulcer (03/10/2019). 2. Diabetes type 2. NovoLog sliding scale has been instituted. 3. Hypertension. The patient is currently hypotensive. 4. Respiratory failure. The patient is currently intubated in the intensive care unit. A Pulmonary consultation has been obtained with Dr. Bibiana Pennington. Abx: total 6 weeks of IV ertapenem; end date 05/01/19; DC planning . Marcos Zamudio MD Apr 15, 2019 12:27
--- NOTE | 2019-04-15 13:11 | NUR ---
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 98.5 HR 99 RR 18 B/P 144/82 GLU 68 PT 12.7 INR 1.2 PTT 111 IS: HEPARIN GTT CEFEPIME IV FLAGYL PO MED/SURG STATUS
--- NOTE | 2019-04-15 13:15 | NUR ---
RD ASSESSMENT & RECOMMENDATIONS SEE CARE ACTIVITY FOR COMPLETE ASSESSMENT DAILY ESTIMATED NEEDS: Needs based on Surgery, DM / 53.6kg 25-35 kcals/kg 7861-6241 total kcals 1-2 g protein/kg 54-107 g total protein 25-30 mL/kg 8865-8550 total fluid mLs NUTRITION DIAGNOSIS: * Altered GI function R/T perforated gastric ulcer as evidenced by s/p ex lap, abdominal washout, partial omentectomy, imelda patch for repair of perforated pre-pyloric ulcer, diet now advanced to regular. * Altered nutrition related lab values R/T diabetes, clinical condition as evidenced by elev BGs (177 226 332-> 68, 94), POC glu (99-144), A1C 10.2, urine glucose 4+, low phos-> now wnl, low mg-> not updated, elev triglycerides (300). CURRENT DIET:CCHO MED + LACTOSE FREE PO DIET RECOMMENDATIONS: BLAND, CCHO LOW DIET ADDITIONAL RECOMMENDATIONS: * Monitor BGs closely-> improved since adm * Calibrated bedscale or standing wt for accurate CBW-> pt w/ extended adm * Monitor lytes, replete as needed * Check f/up triglyceride (300 on 03/13) * F/up wound eval: rec add MVI x 1, Vit C 250mg QD + Dimas 1pkt BID * CONSIDER APPETITE STIMULANT FOR CONSISTENT SUBOPTIMAL PO INTAKE * Trupti DC'ed per pt refusal
--- NOTE | 2019-04-15 15:01 | Infectious Diseases Prog Note ---
Assessment/Plan Assessment/Plan A: Fever, SP Leukocytosis, -S-p- Probable Sepsis- 2ry to likely intraabdominal abscess- ?source (post-op complication vs energy assistant or sigmoid origin) -04/13 Sp Unusual fluid and phlegmon changes seen in the right adnexal region. Comparison with prior study of 03/27/2019 is difficult, due to lack of IV contrast administration currently. However, there appears to be likely decreased discrete fluid but is perhaps slightly increased phlegmon component. In addition, the appendix appears distended with fluid currently but intact. The significance of this finding and he of the surrounding abnormalities is uncertain. There is also a tiny 13 mm collection in the right perirectal region which is unchanged Persistent distention of the endometrium with fluid Slightly increased infiltration of the omental fat adjacent to the distal greater curvature of the stomach without discrete fluid collection. This may represent progressive postsurgical scarring. 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 Right adnexal region irregular fluid collection, corresponding to findings reported on recent CT scan. This is contiguous with an immediately adjacent segment of bowel.This likewise corresponds to findings on recent CT. Note that the fluid collection and extent are better delineated on the prior study. Nonvisualized left ovary -CT abd/p: Markedly thickened and fluid-filled endometrium. 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 Complex multilobulated fluid collection with areas of enhancing soft tissue in the right adnexal region. This measures 5.5 x 7 x 3.9 cm. There is also a second tiny collection adjacent to the distal rectum. One possible etiology is, given the above finding, a tubo-ovarian abscess, related to retrograde propagation of endometritis. A second possibility is that this represents acute diverticulitis with peridiverticular abscess, given the close relationship with the distal sigmoid colon. A third possibility is this represents an abscess related to infected pelvic fluid from the prior gastric perforation, as the previous exam did demonstrate a small amount of free fluid in the pelvis. Finally, given the presence of the appendix (which isprominent in caliber) at the edge of the collection, this could represent perforated acute distal appendicitis. However, this is deemed less likely. Evidence of interim repair of previously demonstrated perforated gastric ulcer. No evidence of contrast leakage. No abnormal fluid collection at the operative site. Colonic diverticulosis. Slight rim enhancement of the gallbladder. Slight pericholecystic fluid. However, the gallbladder is nondistended, so doubt significance of this. Bilateral basilar pulmonary parenchymal groundglass opacity, likely on the basis of mild pulmonary edema Perforated pre-pyloric gastric ulcer -03/15 s/p UGI series: Negative for postoperative leak -03/10 SP 03/10 SP Exploratory Laparotomy, Abdominal washout. Partial omentectomy. Shane patch for repair of perforated pre-pyloric ulcer. -03/10 CT abd/p: Free intraperitoneal gas. Etiology not completely certain, but gas within and extending from the anterior gastric antral wall is suspicious for a perforated gastric ulcer. Perforated descending colon diverticulitis also possible but deemed much less likely. Free intraperitoneal fluid, presumably related to the above. Fatty liver. Basilar pulmonary parenchymal groundglass opacities. This could indicate pulmonary edema, among other possibilities. Subcentimeter low-attenuation renal lesions, too small to characterize, most likely benign simple cyst. No further follow-up necessary. 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 Acute encephalopathy, Sp -CT head: Chronic and age-related changes. Negative for acute intracranial bleed or mass effect VDRF, post-op; extubated 03/12 DARRON, SP Dm2 HTN Plan: -Cont Cefepime #27 and PO Flagyl #22 for intraabdominal abscess while in house ( end date 05/01/19), upon DC will may change to Invanz to complete the course - Monitor weekly CBC, CMP - Would not recommend PO abx in this case lack of cultures and unclear nature of the infection. -03/22 SP Fluconazole #10 -03/15 SP Zosyn #6 -03/10 SP IV Vancomycin #1, Ancef x1 -Monitor CBC/CMP, temperatures -Sx f/u -wound care per surgical team -aspiration precautions Subjective Allergies: Coded Allergies: No Known Allergies (Unverified , 03/10/19) Subjective comfortable Sp CT Objective Vital Signs Last 24 Hour Vital Signs Date Time Temp Pulse Resp B/P (MAP) Pulse Ox O2 Delivery O2 Flow Rate FiO2 04/15/19 12:00 98.4 99 18 141/80 (100) 96 04/15/19 09:00 Room Air Room Air 04/15/19 08:00 98.5 103 18 117/65 (82) 97 04/15/19 04:00 98.2 99 16 123/60 (81) 98 04/15/19 00:00 98.6 99 16 144/87 (106) 98 04/14/19 21:00 Room Air Room Air 04/14/19 20:00 98.7 91 16 128/79 (95) 97 04/14/19 16:00 97.5 80 20 120/70 (87) 95 Height (Feet): 5 Height (Inches): 0.00 Weight (Pounds): 99 HEENT: anicteric Respiratory/Chest: no respiratory distress Cardiovascular: regularly irregular Abdomen: no organomegaly Laboratory Tests Test 04/14/19 18:50 04/15/19 02:53 04/15/19 10:15 Activated Partial Thromboplast Time 54 SEC (23-33) H 111 SEC (23-33) H 65 SEC (23-33) H White Blood Count 5.7 K/UL (4.8-10.8) Red Blood Count 3.75 M/UL (4.20-5.40) L Hemoglobin 9.9 G/DL (12.0-16.0) L Hematocrit 31.7 % (37.0-47.0) L Mean Corpuscular Volume 85 FL (80-99) Mean Corpuscular Hemoglobin 26.3 PG (27.0-31.0) L Mean Corpuscular Hemoglobin Concent 31.1 G/DL (32.0-36.0) L Red Cell Distribution Width 16.2 % (11.6-14.8) H Platelet Count 252 K/UL (150-450) Mean Platelet Volume 6.6 FL (6.5-10.1) Neutrophils (%) (Auto) 34.3 % (45.0-75.0) L Lymphocytes (%) (Auto) 46.9 % (20.0-45.0) H Monocytes (%) (Auto) 13.2 % (1.0-10.0) H Eosinophils (%) (Auto) 2.9 % (0.0-3.0) Basophils (%) (Auto) 2.8 % (0.0-2.0) H Erythrocyte Sedimentation Rate 98 MM/HR (0-30) H Prothrombin Time 12.7 SEC (9.30-11.50) H Prothromb Time International Ratio 1.2 (0.9-1.1) H Sodium Level 139 MMOL/L (136-145) Potassium Level 4.2 MMOL/L (3.5-5.1) Chloride Level 108 MMOL/L (98-107) H Carbon Dioxide Level 21 MMOL/L (21-32) Anion Gap 10 mmol/L (5-15) Blood Urea Nitrogen 6 mg/dL (7-18) L Creatinine 0.6 MG/DL (0.55-1.30) Estimat Glomerular Filtration Rate mL/min (>60) Glucose Level 68 MG/DL (74-106) L Calcium Level 8.8 MG/DL (8.5-10.1) Total Bilirubin 0.3 MG/DL (0.2-1.0) Aspartate Amino Transf (AST/SGOT) 23 U/L (15-37) Alanine Aminotransferase (ALT/SGPT) 9 U/L (12-78) L Alkaline Phosphatase 119 U/L (46-116) H C-Reactive Protein, Quantitative 0.8 mg/dL (0.00-0.90) Total Protein 5.9 G/DL (6.4-8.2) L Albumin 2.4 G/DL (3.4-5.0) L Globulin 3.5 g/dL Albumin/Globulin Ratio 0.7 (1.0-2.7) L Lipase 108 U/L (73-393) Current Medications Medications (Trade) Dose Ordered Sig/Shantelle Route PRN Reason Start Time Stop Time Status Last Admin Dose Admin Acetaminophen (Tylenol) 650 mg Q4H PRN ORAL Mild Pain/Temp > 100.5 03/19/19 16:00 04/18/19 15:59 03/31/19 21:22 Barium Sulfate (Readi-Cat 2) 450 ml PRN PRN ORAL Radiology Procedure 03/27/19 13:30 04/26/19 13:29 04/13/19 08:21 Cefepime HCl 1 gm/ Dextrose 55 ml @ 110 mls/hr DAILY IVPB 03/30/19 09:00 04/29/19 23:59 04/15/19 09:32 Dextrose (Dextrose 50%) 25 ml Q30M PRN IV Hypoglycemia 03/23/19 08:45 04/22/19 08:44 Dextrose (Dextrose 50%) 50 ml Q30M PRN IV Hypoglycemia 03/23/19 08:45 04/22/19 08:44 Glipizide (Glucotrol) 5 mg BIAC ORAL 03/21/19 16:30 04/20/19 16:29 04/14/19 17:57 Heparin Sodium/ Dextrose 500 ml @ 15.268 mls/ hr ADJUST PER PROTOCOL IV 04/15/19 04:30 05/14/19 20:01 04/15/19 11:51 Insulin Aspart (NovoLOG) BEFORE MEALS AND HS SUBQ 03/23/19 11:30 04/22/19 11:29 04/15/19 11:50 Magnesium Hydroxide (Mom) 30 ml DAILYPRN PRN ORAL Constipation 04/01/19 17:30 05/01/19 17:29 04/01/19 17:42 Metronidazole (Flagyl) 500 mg Q8HR ORAL 03/23/19 14:00 04/29/19 23:59 04/15/19 13:57 Nateglinide (Starlix) 120 mg TIAC ORAL 03/23/19 11:30 04/22/19 11:29 04/15/19 11:44 Pantoprazole (Protonix) 40 mg EVERY 12 HOURS ORAL 03/16/19 21:00 04/15/19 20:59 04/15/19 09:32 Potassium Chloride (K-Dur) 40 meq BID ORAL 04/13/19 18:00 05/13/19 17:59 04/15/19 09:32 Smooth Weinstein MD Apr 15, 2019 15:01
[2019-04-15 16:00] VITALS: BP 117/50
--- NOTE | 2019-04-15 16:57 | Surgery Progress Note ---
Surgery Progress Note Subjective Procedure Performed ex lap with imelda patch, washout, omentectomy Symptoms: improved, tolerating diet, voiding well, passing flatus, pain decreased Objective Last 24 Hour Vital Signs Date Time Temp Pulse Resp B/P (MAP) Pulse Ox O2 Delivery O2 Flow Rate FiO2 04/15/19 16:00 98.2 87 18 117/50 (72) 98 04/15/19 12:00 98.4 99 18 141/80 (100) 96 04/15/19 09:00 Room Air Room Air 04/15/19 08:00 98.5 103 18 117/65 (82) 97 04/15/19 04:00 98.2 99 16 123/60 (81) 98 04/15/19 00:00 98.6 99 16 144/87 (106) 98 04/14/19 21:00 Room Air Room Air 04/14/19 20:00 98.7 91 16 128/79 (95) 97 I&O Intake and Output 04/14/19 04/15/19 19:00 07:00 Intake Total 615.830 ml 255.268 ml Balance 615.830 ml 255.268 ml Intake Oral 480 ml 240 ml IV Total 135.830 ml 15.268 ml # Voids 3 6 # Bowel Movements 1 Dressing: dry Wound: clean Cardiovascular: RSR Respiratory: clear Abdomen: soft, flat, non-tender, present bowel sounds Extremities: no tenderness, no cyanosis Laboratory Tests Test 04/14/19 18:50 04/15/19 02:53 04/15/19 10:15 Activated Partial Thromboplast Time 54 SEC (23-33) H 111 SEC (23-33) H 65 SEC (23-33) H White Blood Count 5.7 K/UL (4.8-10.8) Red Blood Count 3.75 M/UL (4.20-5.40) L Hemoglobin 9.9 G/DL (12.0-16.0) L Hematocrit 31.7 % (37.0-47.0) L Mean Corpuscular Volume 85 FL (80-99) Mean Corpuscular Hemoglobin 26.3 PG (27.0-31.0) L Mean Corpuscular Hemoglobin Concent 31.1 G/DL (32.0-36.0) L Red Cell Distribution Width 16.2 % (11.6-14.8) H Platelet Count 252 K/UL (150-450) Mean Platelet Volume 6.6 FL (6.5-10.1) Neutrophils (%) (Auto) 34.3 % (45.0-75.0) L Lymphocytes (%) (Auto) 46.9 % (20.0-45.0) H Monocytes (%) (Auto) 13.2 % (1.0-10.0) H Eosinophils (%) (Auto) 2.9 % (0.0-3.0) Basophils (%) (Auto) 2.8 % (0.0-2.0) H Erythrocyte Sedimentation Rate 98 MM/HR (0-30) H Prothrombin Time 12.7 SEC (9.30-11.50) H Prothromb Time International Ratio 1.2 (0.9-1.1) H Sodium Level 139 MMOL/L (136-145) Potassium Level 4.2 MMOL/L (3.5-5.1) Chloride Level 108 MMOL/L (98-107) H Carbon Dioxide Level 21 MMOL/L (21-32) Anion Gap 10 mmol/L (5-15) Blood Urea Nitrogen 6 mg/dL (7-18) L Creatinine 0.6 MG/DL (0.55-1.30) Estimat Glomerular Filtration Rate mL/min (>60) Glucose Level 68 MG/DL (74-106) L Calcium Level 8.8 MG/DL (8.5-10.1) Total Bilirubin 0.3 MG/DL (0.2-1.0) Aspartate Amino Transf (AST/SGOT) 23 U/L (15-37) Alanine Aminotransferase (ALT/SGPT) 9 U/L (12-78) L Alkaline Phosphatase 119 U/L (46-116) H C-Reactive Protein, Quantitative 0.8 mg/dL (0.00-0.90) Total Protein 5.9 G/DL (6.4-8.2) L Albumin 2.4 G/DL (3.4-5.0) L Globulin 3.5 g/dL Albumin/Globulin Ratio 0.7 (1.0-2.7) L Lipase 108 U/L (73-393) Assessment Post-op Diagnosis perforated prepyloric gastric ulcer Plan Problems: (1) Peritonitis Assessment & Plan: 84F with perforated abdominal viscus likely gastric perforation based on CT findings s/p imelda patch recovering labs improved exam improved advance diet anna removed CT and US noted repeat CT noted Unusual fluid and phlegmon changes seen in the right adnexal region. Comparison with prior study of 03/27/2019 is difficult, due to lack of IV contrast administration currently. However, there appears to be likely decreased discrete fluid but is perhaps slightly increased phlegmon component. In addition, the appendix appears distended with fluid currently but intact. The significance of this finding and he of the surrounding abnormalities is uncertain. There is also a tiny 13 mm collection in the right perirectal region which is unchanged Persistent distention of the endometrium with fluid Slightly increased infiltration of the omental fat adjacent to the distal greater curvature of the stomach without discrete fluid collection. This may represent progressive postsurgical scarring. Other findings as noted, including degenerative spondylosis, left hip prosthesis , old healed left inferior pubic ramus fracture abd fluid collection possible abscess unable to drain via IR can consider surgical drainage but would be high risk and with morbidity and mortality risk given age and medical condition family aware plan for medical therapy with IV abx given stable improving with medical management labs improved exam benign will monitor thank you (2) Perforated abdominal viscus Mike Sheth Apr 15, 2019 16:57
--- NOTE | 2019-04-15 19:28 | NUR ---
HAND-OFF: Report given to SARAI Burt.
--- NOTE | 2019-04-15 19:30 | NUR ---
NURSE NOTES: Received report & pt from SARAI Keller. Pt up in chair, a&ox3, Estonian speaking only, in room air, family members at bedside. No s/s of acute distress & no c/o pain. IV site intact with heparin gtt running at 17units/kg/hr. Noted BLE edema. Surgical dressing with steri-strips C/D/I. Bed in lowest position, call light within reach. Will continue to monitor.
[2019-04-15 20:00] VITALS: BP 129/77
[2019-04-16 04:00] VITALS: BP 134/61
--- NOTE | 2019-04-16 05:27 | NUR ---
NURSE NOTES: Evonne called from pharmacy. Pt's Ptt is in therapeutic level 72, per pharmacist, continue current rate & PTT tomorrow AM 04/17/19 @ 1619
[2019-04-16] MEDS: NovoLOG Insulin Flexpen SUBQ SCH ×4 (06:30→21:00)
[2019-04-16] MEDS: GlipiZIDE 5mg tab ORAL SCH ×2 (06:30→17:01)
[2019-04-16] MEDS: metroNIDAZOLE 500mg tab ORAL SCH ×3 (06:43→22:44)
--- NOTE | 2019-04-16 07:23 | NUR ---
HAND-OFF: Report given to SARAI Keller. Pt in stable condition. Rounds done.
--- NOTE | 2019-04-16 07:30 | NUR ---
NURSE NOTES: Pt lying in bed w/bed in lowest position, bed alarm on, and call light within reach. Pt A&Ox3, VSS, and in no apparent distress. IV site intact/asymptomatic w/Heparin infusing; BLE edema noted; abdominal steri-strips C/D/I; and optifoam on sacrum C/D/I. Will continue to monitor.
[2019-04-16 08:00] VITALS: BP 123/73
--- NOTE | 2019-04-16 09:44 | Nephrology Progress Note ---
Assessment/Plan Problem List: (1) Perforated abdominal viscus (2) Hypokalemia (3) Hypomagnesemia (4) Diabetes mellitus (5) Anemia Assessment WBC rising Post lap on 03/10 Low K Low Phos Low Mag Anemia DM h/o HTN Plan add oral hypoglycemics for high BS DC IV change all to orals Mag and K and Phos IV as needed Anemia claudio Keep BP and BS in check per orders DC planning Subjective ROS Limited/Unobtainable: No Objective Objective Last 24 Hour Vital Signs Date Time Temp Pulse Resp B/P (MAP) Pulse Ox O2 Delivery O2 Flow Rate FiO2 04/16/19 08:00 98.8 97 18 123/73 (90) 97 04/16/19 04:00 98.1 80 16 134/61 (85) 97 04/15/19 21:00 Room Air Room Air 04/15/19 20:00 97.8 94 17 129/77 (94) 97 04/15/19 16:00 98.2 87 18 117/50 (72) 98 04/15/19 12:00 98.4 99 18 141/80 (100) 96 Intake and Output 04/15/19 04/16/19 19:00 07:00 Intake Total 207.680 ml 240 ml Balance 207.680 ml 240 ml Intake Oral 240 ml IV Total 207.680 ml # Voids 2 Laboratory Tests 04/15/19 10:15: Activated Partial Thromboplast Time 65H 04/16/19 04:42: Activated Partial Thromboplast Time 72H Height (Feet): 5 Height (Inches): 0.00 Weight (Pounds): 99 General Appearance: no apparent distress Objective no change El Clark MD Apr 16, 2019 09:44
[2019-04-16] MEDS: Cefepime HCl 1 GM in D5W 55 ML IVPB SCH (10:13)
[2019-04-16 11:33] VITALS: BP 136/80
--- NOTE | 2019-04-16 12:35 | Surgery Progress Note ---
Surgery Progress Note Subjective Procedure Performed ex lap with imelda patch, washout, omentectomy Symptoms: improved, tolerating diet, voiding well, passing flatus Objective Last 24 Hour Vital Signs Date Time Temp Pulse Resp B/P (MAP) Pulse Ox O2 Delivery O2 Flow Rate FiO2 04/16/19 11:33 98.9 98 18 136/80 (98) 95 04/16/19 09:00 Room Air Room Air 04/16/19 08:00 98.8 97 18 123/73 (90) 97 04/16/19 04:00 98.1 80 16 134/61 (85) 97 04/15/19 21:00 Room Air Room Air 04/15/19 20:00 97.8 94 17 129/77 (94) 97 04/15/19 16:00 98.2 87 18 117/50 (72) 98 I&O Intake and Output 04/15/19 04/16/19 18:59 06:59 Intake Total 222.948 ml 240 ml Balance 222.948 ml 240 ml Intake Oral 240 ml IV Total 222.948 ml # Voids 2 Dressing: dry Wound: clean Cardiovascular: RSR Respiratory: clear Abdomen: soft, flat, non-tender, present bowel sounds Extremities: no edema, no tenderness, no cyanosis Laboratory Tests Test 04/16/19 04:42 Activated Partial Thromboplast Time 72 SEC (23-33) H Assessment Post-op Diagnosis perforated prepyloric gastric ulcer Plan Problems: (1) Peritonitis Assessment & Plan: 84F with perforated abdominal viscus likely gastric perforation based on CT findings s/p imelda patch recovering labs improved exam improved advance diet anna removed CT and US noted repeat CT noted Unusual fluid and phlegmon changes seen in the right adnexal region. Comparison with prior study of 03/27/2019 is difficult, due to lack of IV contrast administration currently. However, there appears to be likely decreased discrete fluid but is perhaps slightly increased phlegmon component. In addition, the appendix appears distended with fluid currently but intact. The significance of this finding and he of the surrounding abnormalities is uncertain. There is also a tiny 13 mm collection in the right perirectal region which is unchanged Persistent distention of the endometrium with fluid Slightly increased infiltration of the omental fat adjacent to the distal greater curvature of the stomach without discrete fluid collection. This may represent progressive postsurgical scarring. Other findings as noted, including degenerative spondylosis, left hip prosthesis , old healed left inferior pubic ramus fracture abd fluid collection possible abscess unable to drain via IR can consider surgical drainage but would be high risk and with morbidity and mortality risk given age and medical condition family aware plan for medical therapy with IV abx given stable improving with medical management labs improved exam benign will monitor thank you (2) Perforated abdominal viscus Mike Sheth Apr 16, 2019 12:35
[2019-04-16 15:52] VITALS: BP 104/69
--- NOTE | 2019-04-16 16:52 | Internal Med Progress Note ---
Subjective Date of Service: Apr 16, 2019 Physician Name Zen Paige Attending Physician Marcos Silva MD Current Medications Medications (Trade) Dose Ordered Sig/Shantelle Route PRN Reason Start Time Stop Time Status Last Admin Dose Admin Acetaminophen (Tylenol) 650 mg Q4H PRN ORAL Mild Pain/Temp > 100.5 03/19/19 16:00 04/18/19 15:59 03/31/19 21:22 Barium Sulfate (Readi-Cat 2) 450 ml PRN PRN ORAL Radiology Procedure 03/27/19 13:30 04/26/19 13:29 04/13/19 08:21 Cefepime HCl 1 gm/ Dextrose 55 ml @ 110 mls/hr DAILY IVPB 03/30/19 09:00 04/29/19 23:59 04/16/19 10:13 Dextrose (Dextrose 50%) 25 ml Q30M PRN IV Hypoglycemia 03/23/19 08:45 04/22/19 08:44 Dextrose (Dextrose 50%) 50 ml Q30M PRN IV Hypoglycemia 03/23/19 08:45 04/22/19 08:44 Glipizide (Glucotrol) 5 mg BIAC ORAL 03/21/19 16:30 04/20/19 16:29 04/15/19 17:06 Heparin Sodium/ Dextrose 500 ml @ 15.268 mls/ hr ADJUST PER PROTOCOL IV 04/15/19 04:30 05/14/19 20:01 04/15/19 11:51 Insulin Aspart (NovoLOG) BEFORE MEALS AND HS SUBQ 03/23/19 11:30 04/22/19 11:29 04/16/19 12:22 Magnesium Hydroxide (Mom) 30 ml DAILYPRN PRN ORAL Constipation 04/01/19 17:30 05/01/19 17:29 04/01/19 17:42 Metronidazole (Flagyl) 500 mg Q8HR ORAL 03/23/19 14:00 04/29/19 23:59 04/16/19 14:09 Nateglinide (Starlix) 120 mg TIAC ORAL 03/23/19 11:30 04/22/19 11:29 04/16/19 12:18 Potassium Chloride (K-Dur) 40 meq BID ORAL 04/13/19 18:00 05/13/19 17:59 04/16/19 10:12 Allergies: Coded Allergies: No Known Allergies (Unverified , 03/10/19) ROS Limited/Unobtainable: No Constitutional: Reports: no symptoms HEENT: Reports: no symptoms Cardiovascular: Reports: no symptoms Respiratory: Reports: no symptoms Gastrointestinal/Abdominal: Reports: no symptoms Genitourinary: Reports: no symptoms Neurologic/Psychiatric: Reports: no symptoms Subjective 84 YO F admitted with abdominal pain. S/P exploratory laparotomy 03/10/19. Now intra-abdominal abscess. Cover for Int Med-Dr Silva. Objective Last Vital Signs Date Time Temp Pulse Resp B/P (MAP) Pulse Ox O2 Delivery O2 Flow Rate FiO2 04/16/19 15:52 98.7 93 18 104/69 (81) 99 04/16/19 09:00 Room Air Room Air Laboratory Tests Test 04/16/19 04:42 Activated Partial Thromboplast Time 72 SEC (23-33) H Intake and Output 04/15/19 04/16/19 18:59 06:59 Intake Total 222.948 ml 240 ml Balance 222.948 ml 240 ml Intake Oral 240 ml IV Total 222.948 ml # Voids 2 Objective PHYSICAL EXAMINATION: GENERAL: The patient is a well developed, well nourished female who is intubated and sedated. HEENT: Eyes, pupils equal and responsive to light and accommodation. Extraocular movements are intact. NECK: Supple without lymphadenopathy. CHEST: Nasc canula; Few diffuse wheezes bilaterally. Otherwise, without wheezes or rales. CARDIOVASCULAR: Regular rhythm rate. S1-S2 are normal without murmurs, rubs, or gallops. ABDOMEN: NGT; Soft, nontender with decreased bowel sounds. No evidence of hepatosplenomegaly. no rebound or guarding noted. EXTREMITIES: Negative for clubbing, cyanosis, edema. RECTAL/GENITAL: Not performed. NEUROLOGIC: Cranial nerves II through XII are grossly intact without focal deficits. Assessment/Plan Assessment/Plan ASSESSMENT: This is an 84-year-old female. 1. Perforated gastric ulcer 2. Abdominal pain. 3. Nausea with vomiting. 4. Diabetes type 2. 5. Hypertension. 6. Post Op fever-resolved 7. Leukocytosis 8. Intraabdominal abscess TREATMENT: 1. Perforated gastric ulcer. A General Surgery consultation has been obtained with Dr. Sheth. S/P exploratory laparotomy 03/10/19=perforated Pre pyloric ulcer. Tolerating regular diet; NGT discontinued per surgery 2. Diabetes type 2. NovoLog sliding scale has been instituted. 3. Hypertension. The patient is currently hypotensive. 4. Respiratory failure. S/P extubation 03/12/19. A Pulmonary consultation has been obtained with Dr. Bibiana Pennington. 5. Med/surg 6. ABX=Ertapenem for 6 weeks-end date 05/01/19 per ID 7. Surgical intervention on hold for intraabdominal abscess-see surgery note. Will require 6 weeks of ertapenem per ID 8. WBC now normal; Discharge planning 9. CT abdomen/pelvis results from 04/13/19=right adnexal phlegmon Zen Paige MD Apr 16, 2019 16:52
--- NOTE | 2019-04-16 19:09 | NUR ---
HAND-OFF: Report given to ARVIND Mishra.
[2019-04-16 20:00] VITALS: BP 134/80
--- NOTE | 2019-04-16 20:00 | NUR ---
NURSE NOTES: RECEIVED PATIENT AWAKE, SITTING IN CHAIR ADJACENT TO BED, ORIENTED X3, GREEK SPEAKING, NO SIGNS AND SYMPTOMS OF ACUTE CARDIO RESPIRATORY DISTRESS/SHORTNESS OF BREATH, NOTED WITH PITTED EDEMA +2 TO BILATERAL LOWER EXTREMITIES, ASSISTED PATIENT TO BED AND ELEVATED LOWER EXTREMITIES ON PILLOW LENGTHWISE WITH HEELS FLOATING, TOLERATED WELL. ABDOMEN SOFT, S/P EX LAP WITH RACHAEL PATCH, WASHOUT, OMENTECTOMY, 6 STERI STRIPS INTACT TO MID ABDOMEN, DRY, NO DRAINAGE NOTED, BOWEL SOUNDS AUDIBLE, DENIES ABDOMINAL PAIN. ASSISTED WITH COMFORT CARE. SIDE RAILS UP X3/BED IN LOWEST POSITION FOR SAFETY/ENCOURAGED PATIENT TO UTILIZE CALL LIGHT FOR ASSISTANCE. BED ALARM ACTIVATED. SON AT BEDSIDE. NAD.
[2019-04-16] MEDS: Heparin 25,000u/D5W 500ml 500 ML IV SCH (22:59)
[2019-04-17] VITALS (7 sets, daily range): BP systolic 116–126; BP diastolic 60–95
--- NOTE | 2019-04-17 06:07 | NUR ---
NURSE NOTES: RESTED WELL, NO SIGNIFICANT CHANGE OF CONDITION NOTED THROUGHOUT THE NIGHT. SAFETY MAINTAINED. NAD.
[2019-04-17] MEDS: metroNIDAZOLE 500mg tab ORAL SCH ×3 (06:27→21:03)
[2019-04-17] MEDS: GlipiZIDE 5mg tab ORAL SCH ×2 (06:30→16:46)
[2019-04-17] MEDS: NovoLOG Insulin Flexpen SUBQ SCH ×4 (06:30→21:06)
--- NOTE | 2019-04-17 07:30 | NUR ---
NURSE NOTES: Pt sitting in chair, son at bedside, and call light within reach. Pt A&Ox3, VSS, and in no apparent distress. IV sites intact/asymptomatic w/Heparin infusing; BLE edema L > R noted; abdominal steri-strips C/D/I; and optifoam on sacrum C/D/I. Will continue to monitor.
--- NOTE | 2019-04-17 07:30 | NUR ---
HAND-OFF: Report given to SARAI GALLARDO.
[2019-04-17] MEDS: Cefepime HCl 1 GM in D5W 55 ML IVPB SCH (09:30)
--- NOTE | 2019-04-17 15:03 | Internal Med Progress Note ---
Subjective Date of Service: Apr 17, 2019 Physician Name Zen Paige Attending Physician Marcos Silva MD Current Medications Medications (Trade) Dose Ordered Sig/Shantelle Route PRN Reason Start Time Stop Time Status Last Admin Dose Admin Acetaminophen (Tylenol) 650 mg Q4H PRN ORAL Mild Pain/Temp > 100.5 03/19/19 16:00 04/18/19 15:59 03/31/19 21:22 Barium Sulfate (Readi-Cat 2) 450 ml PRN PRN ORAL Radiology Procedure 03/27/19 13:30 04/26/19 13:29 04/13/19 08:21 Cefepime HCl 1 gm/ Dextrose 55 ml @ 110 mls/hr DAILY IVPB 03/30/19 09:00 04/29/19 23:59 04/17/19 09:30 Dextrose (Dextrose 50%) 25 ml Q30M PRN IV Hypoglycemia 03/23/19 08:45 04/22/19 08:44 Dextrose (Dextrose 50%) 50 ml Q30M PRN IV Hypoglycemia 03/23/19 08:45 04/22/19 08:44 Glipizide (Glucotrol) 5 mg BIAC ORAL 03/21/19 16:30 04/20/19 16:29 04/16/19 17:01 Heparin Sodium/ Dextrose 500 ml @ 15.268 mls/ hr ADJUST PER PROTOCOL IV 04/15/19 04:30 05/14/19 20:01 04/16/19 22:59 Insulin Aspart (NovoLOG) BEFORE MEALS AND HS SUBQ 03/23/19 11:30 04/22/19 11:29 04/17/19 11:58 Magnesium Hydroxide (Mom) 30 ml DAILYPRN PRN ORAL Constipation 04/01/19 17:30 05/01/19 17:29 04/01/19 17:42 Metronidazole (Flagyl) 500 mg Q8HR ORAL 03/23/19 14:00 04/29/19 23:59 04/17/19 14:10 Nateglinide (Starlix) 120 mg TIAC ORAL 03/23/19 11:30 04/22/19 11:29 04/17/19 11:56 Potassium Chloride (K-Dur) 40 meq BID ORAL 04/13/19 18:00 05/13/19 17:59 04/17/19 09:30 Allergies: Coded Allergies: No Known Allergies (Unverified , 03/10/19) ROS Limited/Unobtainable: No Constitutional: Reports: no symptoms HEENT: Reports: no symptoms Cardiovascular: Reports: no symptoms Respiratory: Reports: no symptoms Gastrointestinal/Abdominal: Reports: no symptoms Genitourinary: Reports: no symptoms Neurologic/Psychiatric: Reports: no symptoms Subjective 84 YO F admitted with abdominal pain. S/P exploratory laparotomy 03/10/19. Now intra-abdominal abscess. Cover for Int Med-Dr Silva. Objective Last Vital Signs Date Time Temp Pulse Resp B/P (MAP) Pulse Ox O2 Delivery O2 Flow Rate FiO2 04/17/19 12:00 97.1 90 18 126/95 (105) 95 04/17/19 09:00 Room Air Room Air Laboratory Tests Test 04/17/19 04:02 Activated Partial Thromboplast Time 67 SEC (23-33) H Intake and Output 04/16/19 04/17/19 19:00 07:00 Intake Total 738.216 ml 422.144 ml Balance 738.216 ml 422.144 ml Intake Oral 500 ml 300 ml IV Total 238.216 ml 122.144 ml # Voids 5 4 # Bowel Movements 2 1 Objective PHYSICAL EXAMINATION: GENERAL: The patient is a well developed, well nourished female who is intubated and sedated. HEENT: Eyes, pupils equal and responsive to light and accommodation. Extraocular movements are intact. NECK: Supple without lymphadenopathy. CHEST: Nasc canula; Few diffuse wheezes bilaterally. Otherwise, without wheezes or rales. CARDIOVASCULAR: Regular rhythm rate. S1-S2 are normal without murmurs, rubs, or gallops. ABDOMEN: NGT; Soft, nontender with decreased bowel sounds. No evidence of hepatosplenomegaly. no rebound or guarding noted. EXTREMITIES: Negative for clubbing, cyanosis, edema. RECTAL/GENITAL: Not performed. NEUROLOGIC: Cranial nerves II through XII are grossly intact without focal deficits. Assessment/Plan Assessment/Plan ASSESSMENT: This is an 84-year-old female. 1. Perforated gastric ulcer 2. Abdominal pain. 3. Nausea with vomiting. 4. Diabetes type 2. 5. Hypertension. 6. Post Op fever-resolved 7. Leukocytosis 8. Intraabdominal abscess TREATMENT: 1. Perforated gastric ulcer. A General Surgery consultation has been obtained with Dr. Sheth. S/P exploratory laparotomy 03/10/19=perforated Pre pyloric ulcer. Tolerating regular diet; NGT discontinued per surgery 2. Diabetes type 2. NovoLog sliding scale has been instituted. 3. Hypertension. The patient is currently hypotensive. 4. Respiratory failure. S/P extubation 03/12/19. A Pulmonary consultation has been obtained with Dr. Bibiana Pennington. 5. Med/surg 6. ABX=Ertapenem for 6 weeks-end date 05/01/19 per ID 7. Surgical intervention on hold for intraabdominal abscess-see surgery note. Will require 6 weeks of ertapenem per ID 8. WBC now normal; Discharge planning 9. CT abdomen/pelvis results from 04/13/19=right adnexal phlegmon Zen Paige MD Apr 17, 2019 15:03
--- NOTE | 2019-04-17 15:09 | Nephrology Progress Note ---
Assessment/Plan Problem List: (1) Perforated abdominal viscus (2) Hypokalemia (3) Hypomagnesemia (4) Diabetes mellitus (5) Anemia Assessment WBC rising Post lap on 03/10 Low K Low Phos Low Mag Anemia DM h/o HTN Plan no labs today add oral hypoglycemics for high BS DC IV change all to orals Mag and K and Phos IV as needed Anemia claudio Keep BP and BS in check per orders DC planning Subjective ROS Limited/Unobtainable: No Objective Objective Last 24 Hour Vital Signs Date Time Temp Pulse Resp B/P (MAP) Pulse Ox O2 Delivery O2 Flow Rate FiO2 04/17/19 12:00 97.1 90 18 126/95 (105) 95 04/17/19 09:00 Room Air Room Air 04/17/19 08:00 97.1 87 18 116/67 (83) 97 04/17/19 04:00 98.9 91 18 126/60 (82) 97 04/17/19 00:00 97.5 93 18 121/67 (85) 96 04/16/19 21:00 Room Air Room Air 04/16/19 20:00 97.8 92 20 134/80 (98) 97 04/16/19 15:52 98.7 93 18 104/69 (81) 99 Intake and Output 04/16/19 04/17/19 19:00 07:00 Intake Total 738.216 ml 422.144 ml Balance 738.216 ml 422.144 ml Intake Oral 500 ml 300 ml IV Total 238.216 ml 122.144 ml # Voids 5 4 # Bowel Movements 2 1 Laboratory Tests 04/17/19 04:02: Activated Partial Thromboplast Time 67H Height (Feet): 5 Height (Inches): 0.00 Weight (Pounds): 99 General Appearance: no apparent distress Objective no change El Clark MD Apr 17, 2019 15:09
--- NOTE | 2019-04-17 15:46 | Surgery Progress Note ---
Surgery Progress Note Subjective Procedure Performed ex lap with imelda patch, washout, omentectomy Symptoms: improved, pain absent, tolerating diet, voiding well Objective Last 24 Hour Vital Signs Date Time Temp Pulse Resp B/P (MAP) Pulse Ox O2 Delivery O2 Flow Rate FiO2 04/17/19 12:00 97.1 90 18 126/95 (105) 95 04/17/19 09:00 Room Air Room Air 04/17/19 08:00 97.1 87 18 116/67 (83) 97 04/17/19 04:00 98.9 91 18 126/60 (82) 97 04/17/19 00:00 97.5 93 18 121/67 (85) 96 04/16/19 21:00 Room Air Room Air 04/16/19 20:00 97.8 92 20 134/80 (98) 97 04/16/19 15:52 98.7 93 18 104/69 (81) 99 I&O Intake and Output 04/16/19 04/17/19 19:00 07:00 Intake Total 738.216 ml 422.144 ml Balance 738.216 ml 422.144 ml Intake Oral 500 ml 300 ml IV Total 238.216 ml 122.144 ml # Voids 5 4 # Bowel Movements 2 1 Cardiovascular: RSR Respiratory: clear Abdomen: soft, flat, non-tender, present bowel sounds Extremities: no edema, no tenderness, no cyanosis Laboratory Tests Test 04/17/19 04:02 Activated Partial Thromboplast Time 67 SEC (23-33) H Assessment Post-op Diagnosis perforated prepyloric gastric ulcer Plan Problems: (1) Peritonitis Assessment & Plan: 84F with perforated abdominal viscus likely gastric perforation based on CT findings s/p imelda patch recovering labs improved exam improved advance diet anna removed CT and US noted repeat CT noted Unusual fluid and phlegmon changes seen in the right adnexal region. Comparison with prior study of 03/27/2019 is difficult, due to lack of IV contrast administration currently. However, there appears to be likely decreased discrete fluid but is perhaps slightly increased phlegmon component. In addition, the appendix appears distended with fluid currently but intact. The significance of this finding and he of the surrounding abnormalities is uncertain. There is also a tiny 13 mm collection in the right perirectal region which is unchanged Persistent distention of the endometrium with fluid Slightly increased infiltration of the omental fat adjacent to the distal greater curvature of the stomach without discrete fluid collection. This may represent progressive postsurgical scarring. Other findings as noted, including degenerative spondylosis, left hip prosthesis , old healed left inferior pubic ramus fracture abd fluid collection possible abscess unable to drain via IR can consider surgical drainage but would be high risk and with morbidity and mortality risk given age and medical condition family aware plan for medical therapy with IV abx given stable improving with medical management labs improved exam benign will monitor thank you (2) Perforated abdominal viscus Mike Sheth Apr 17, 2019 15:46
--- NOTE | 2019-04-17 19:14 | NUR ---
HAND-OFF: Report given to SARAI Calrson.
--- NOTE | 2019-04-17 19:19 | Infectious Diseases Prog Note ---
Assessment/Plan Assessment/Plan A: Fever, SP Leukocytosis, -S-p- Probable Sepsis- 2ry to likely intraabdominal abscess- ?source (post-op complication vs tactical intelligence officer or sigmoid origin) -04/13 Sp Unusual fluid and phlegmon changes seen in the right adnexal region. Comparison with prior study of 03/27/2019 is difficult, due to lack of IV contrast administration currently. However, there appears to be likely decreased discrete fluid but is perhaps slightly increased phlegmon component. In addition, the appendix appears distended with fluid currently but intact. The significance of this finding and he of the surrounding abnormalities is uncertain. There is also a tiny 13 mm collection in the right perirectal region which is unchanged Persistent distention of the endometrium with fluid Slightly increased infiltration of the omental fat adjacent to the distal greater curvature of the stomach without discrete fluid collection. This may represent progressive postsurgical scarring. 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 Right adnexal region irregular fluid collection, corresponding to findings reported on recent CT scan. This is contiguous with an immediately adjacent segment of bowel.This likewise corresponds to findings on recent CT. Note that the fluid collection and extent are better delineated on the prior study. Nonvisualized left ovary -CT abd/p: Markedly thickened and fluid-filled endometrium. 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 Complex multilobulated fluid collection with areas of enhancing soft tissue in the right adnexal region. This measures 5.5 x 7 x 3.9 cm. There is also a second tiny collection adjacent to the distal rectum. One possible etiology is, given the above finding, a tubo-ovarian abscess, related to retrograde propagation of endometritis. A second possibility is that this represents acute diverticulitis with peridiverticular abscess, given the close relationship with the distal sigmoid colon. A third possibility is this represents an abscess related to infected pelvic fluid from the prior gastric perforation, as the previous exam did demonstrate a small amount of free fluid in the pelvis. Finally, given the presence of the appendix (which isprominent in caliber) at the edge of the collection, this could represent perforated acute distal appendicitis. However, this is deemed less likely. Evidence of interim repair of previously demonstrated perforated gastric ulcer. No evidence of contrast leakage. No abnormal fluid collection at the operative site. Colonic diverticulosis. Slight rim enhancement of the gallbladder. Slight pericholecystic fluid. However, the gallbladder is nondistended, so doubt significance of this. Bilateral basilar pulmonary parenchymal groundglass opacity, likely on the basis of mild pulmonary edema Perforated pre-pyloric gastric ulcer -03/15 s/p UGI series: Negative for postoperative leak -03/10 SP 03/10 SP Exploratory Laparotomy, Abdominal washout. Partial omentectomy. Shane patch for repair of perforated pre-pyloric ulcer. -03/10 CT abd/p: Free intraperitoneal gas. Etiology not completely certain, but gas within and extending from the anterior gastric antral wall is suspicious for a perforated gastric ulcer. Perforated descending colon diverticulitis also possible but deemed much less likely. Free intraperitoneal fluid, presumably related to the above. Fatty liver. Basilar pulmonary parenchymal groundglass opacities. This could indicate pulmonary edema, among other possibilities. Subcentimeter low-attenuation renal lesions, too small to characterize, most likely benign simple cyst. No further follow-up necessary. 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 Acute encephalopathy, Sp -CT head: Chronic and age-related changes. Negative for acute intracranial bleed or mass effect VDRF, post-op; extubated 03/12 DARRON, SP Dm2 HTN Plan: -Cont Cefepime #29 and PO Flagyl #23 for intraabdominal abscess while in house ( end date 05/01/19), upon DC will may change to Invanz to complete the course - Monitor weekly CBC, CMP - Would not recommend PO abx in this case lack of cultures and unclear nature of the infection. -03/22 SP Fluconazole #10 -03/15 SP Zosyn #6 -03/10 SP IV Vancomycin #1, Ancef x1 -Monitor CBC/CMP, temperatures -Sx f/u -wound care per surgical team -aspiration precautions Subjective Allergies: Coded Allergies: No Known Allergies (Unverified , 03/10/19) Subjective comfortable afebrile Objective Vital Signs Last 24 Hour Vital Signs Date Time Temp Pulse Resp B/P (MAP) Pulse Ox O2 Delivery O2 Flow Rate FiO2 04/17/19 16:00 98.2 92 18 124/66 (85) 99 04/17/19 12:00 97.1 90 18 126/95 (105) 95 04/17/19 09:00 Room Air Room Air 04/17/19 08:00 97.1 87 18 116/67 (83) 97 04/17/19 04:00 98.9 91 18 126/60 (82) 97 04/17/19 00:00 97.5 93 18 121/67 (85) 96 04/16/19 21:00 Room Air Room Air 04/16/19 20:00 97.8 92 20 134/80 (98) 97 Height (Feet): 5 Height (Inches): 0.00 Weight (Pounds): 99 HEENT: anicteric Respiratory/Chest: normal breath sounds Cardiovascular: regular rhythm Abdomen: no organomegaly Laboratory Tests Test 04/17/19 04:02 Activated Partial Thromboplast Time 67 SEC (23-33) H Current Medications Medications (Trade) Dose Ordered Sig/Shantelle Route PRN Reason Start Time Stop Time Status Last Admin Dose Admin Acetaminophen (Tylenol) 650 mg Q4H PRN ORAL Mild Pain/Temp > 100.5 03/19/19 16:00 04/18/19 15:59 03/31/19 21:22 Barium Sulfate (Readi-Cat 2) 450 ml PRN PRN ORAL Radiology Procedure 03/27/19 13:30 04/26/19 13:29 04/13/19 08:21 Cefepime HCl 1 gm/ Dextrose 55 ml @ 110 mls/hr DAILY IVPB 03/30/19 09:00 04/29/19 23:59 04/17/19 09:30 Dextrose (Dextrose 50%) 25 ml Q30M PRN IV Hypoglycemia 03/23/19 08:45 04/22/19 08:44 Dextrose (Dextrose 50%) 50 ml Q30M PRN IV Hypoglycemia 03/23/19 08:45 04/22/19 08:44 Glipizide (Glucotrol) 5 mg BIAC ORAL 03/21/19 16:30 04/20/19 16:29 04/17/19 16:46 Heparin Sodium/ Dextrose 500 ml @ 15.268 mls/ hr ADJUST PER PROTOCOL IV 04/15/19 04:30 05/14/19 20:01 04/16/19 22:59 Insulin Aspart (NovoLOG) BEFORE MEALS AND HS SUBQ 03/23/19 11:30 04/22/19 11:29 04/17/19 16:47 Magnesium Hydroxide (Mom) 30 ml DAILYPRN PRN ORAL Constipation 04/01/19 17:30 05/01/19 17:29 04/01/19 17:42 Metronidazole (Flagyl) 500 mg Q8HR ORAL 03/23/19 14:00 04/29/19 23:59 04/17/19 14:10 Nateglinide (Starlix) 120 mg TIAC ORAL 03/23/19 11:30 04/22/19 11:29 04/17/19 16:46 Potassium Chloride (K-Dur) 40 meq BID ORAL 04/13/19 18:00 05/13/19 17:59 04/17/19 17:33 Smooth Weinstein MD Apr 17, 2019 19:19
--- NOTE | 2019-04-17 19:25 | NUR ---
NURSE NOTES: Patient in bed, awake, alert x3, able to make simple needs known. Respiration is even and unlabored. No complaint of pain or discomfort noted. Skin is warm and dry to touch. Abdomen is soft and non distended. Bowel sounds noted. Bed in low and locked position. Provide safe environment. Call light is at bedside. Will continue plan of care.
[2019-04-18 04:00] VITALS: BP 103/71
--- NOTE | 2019-04-18 04:05 | NUR ---
NURSE NOTES: PTT blood draw was done, awaiting for results.
[2019-04-18] MEDS: metroNIDAZOLE 500mg tab ORAL SCH ×3 (05:27→22:04)
[2019-04-18] MEDS ORDERED: Heparin 25,000u/D5W 500ml 500 ML IV SCH ×3 (05:30→20:45)
[2019-04-18] MEDS ORDERED: Heparin 5000 units/ml inj IV SCH (05:30)
[2019-04-18] MEDS: GlipiZIDE 5mg tab ORAL SCH ×2 (05:33→16:30)
[2019-04-18] MEDS: NovoLOG Insulin Flexpen SUBQ SCH ×4 (05:40→21:00)
--- NOTE | 2019-04-18 05:48 | NUR ---
NURSE NOTES: [facility] regarding heparin drip, dose changed, noted and carried out. Given Bolus heparin as ordered. IV site noted, patent. Call light is at bedside. Will reassess patient.
--- NOTE | 2019-04-18 06:49 | NUR ---
NURSE NOTES: Patient in chair, awake, alert, urdu speaking. IV site noted, medication is infusing. Call light is at bedside. Will continue plan of care.
--- NOTE | 2019-04-18 07:18 | NUR ---
HAND-OFF: Report given to SARAI Huang.
--- NOTE | 2019-04-18 07:49 | NUR ---
NURSE NOTES: Pt escorted to restroom, call light placed in reach. Walking with a slight limp. States she is tired , and that is the only reason why she is limping. Legs from visual sight do not appear to be swollen . Will reassess when pt lays down
[2019-04-18 08:00] VITALS: BP 127/78
[2019-04-18] MEDS: Cefepime HCl 1 GM in D5W 55 ML IVPB SCH (09:45)
[2019-04-18 12:00] VITALS: BP 122/76
--- NOTE | 2019-04-18 13:37 | Nephrology Progress Note ---
Assessment/Plan Problem List: (1) Perforated abdominal viscus (2) Hypokalemia (3) Hypomagnesemia (4) Diabetes mellitus (5) Anemia Assessment WBC rising Post lap on 03/10 Low K Low Phos Low Mag Anemia DM h/o HTN Plan no labs today add oral hypoglycemics for high BS DC IV change all to orals Mag and K and Phos IV as needed Anemia claudio Keep BP and BS in check per orders DC planning Subjective ROS Limited/Unobtainable: No Constitutional: Reports: malaise Objective Objective Last 24 Hour Vital Signs Date Time Temp Pulse Resp B/P (MAP) Pulse Ox O2 Delivery O2 Flow Rate FiO2 04/18/19 12:00 98.2 77 18 122/76 (91) 96 04/18/19 09:00 Nasal Cannula 3.0 Room Air 04/18/19 08:00 98.1 96 18 127/78 (94) 100 04/18/19 04:00 97.3 95 20 103/71 (82) 96 04/17/19 23:30 97.6 85 20 118/62 (80) 98 04/17/19 20:05 Room Air Room Air 04/17/19 20:00 97.4 81 20 124/63 (83) 96 04/17/19 16:00 98.2 92 18 124/66 (85) 99 Intake and Output 04/17/19 04/18/19 19:00 07:00 Intake Total 702.948 ml 671.541 ml Balance 702.948 ml 671.541 ml Intake Oral 480 ml 500 ml IV Total 222.948 ml 171.541 ml # Voids 1 2 Laboratory Tests 04/18/19 04:05: Activated Partial Thromboplast Time 34H 04/18/19 11:15: Activated Partial Thromboplast Time > 150*H Height (Feet): 5 Height (Inches): 0.00 Weight (Pounds): 99 General Appearance: no apparent distress Objective no change El Clark MD Apr 18, 2019 13:37
--- NOTE | 2019-04-18 13:48 | NUR ---
RD ASSESSMENT & RECOMMENDATIONS SEE CARE ACTIVITY FOR COMPLETE ASSESSMENT DAILY ESTIMATED NEEDS: Needs based on Surgery, DM, wt loss / 45.9kg 30-35 kcals/kg 1358-8968 total kcals 1-2 g protein/kg 46-92 g total protein 25-30 mL/kg 4607-4800 total fluid mLs NUTRITION DIAGNOSIS: * Altered GI function R/T perforated gastric ulcer as evidenced by s/p ex lap, abdominal washout, partial omentectomy, imelda patch for repair of perforated pre-pyloric ulcer, diet now advanced to regular. * Altered nutrition related lab values R/T diabetes, clinical condition as evidenced by elev BGs (177 226 332-> 68, 94), POC glu (99-144), A1C 10.2, urine glucose 4+, low phos-> now wnl, low mg-> not updated, elev triglycerides (300). CURRENT DIET:CCHO MED + LACTOSE FREE PO DIET RECOMMENDATIONS: BLAND, CCHO LOW DIET ADDITIONAL RECOMMENDATIONS: * Monitor BGs closely-> improved since adm * Calibrated bedscale wt on 04/1827=138.9lbs -> weekly wts given possible wt loss of 17lbs/ 14% in 39 days * Check f/up triglyceride (300 on 03/13) * F/up wound eval: rec add MVI x 1, Vit C 250mg QD + Dimas 1pkt BID * CONSIDER APPETITE STIMULANT FOR CONSISTENT SUBOPTIMAL PO INTAKE * Trupti DC'ed per pt refusal
--- NOTE | 2019-04-18 14:44 | Infectious Diseases Prog Note ---
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 Comparison with prior study of 03/27/2019 is difficult, due to lack of IV contrast administration currently. However, there appears to be likely decreased discrete fluid but is perhaps slightly increased phlegmon component. In addition, the appendix appears distended with fluid currently but intact. The significance of this finding and he of the surrounding abnormalities is uncertain. There is also a tiny 13 mm collection in the right perirectal region which is unchanged Persistent distention of the endometrium with fluid Slightly increased infiltration of the omental fat adjacent to the distal greater curvature of the stomach without discrete fluid collection. This may represent progressive postsurgical scarring. 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 Right adnexal region irregular fluid collection, corresponding to findings reported on recent CT scan. This is contiguous with an immediately adjacent segment of bowel.This likewise corresponds to findings on recent CT. Note that the fluid collection and extent are better delineated on the prior study. Nonvisualized left ovary -CT abd/p: Markedly thickened and fluid-filled endometrium. 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 Complex multilobulated fluid collection with areas of enhancing soft tissue in the right adnexal region. This measures 5.5 x 7 x 3.9 cm. There is also a second tiny collection adjacent to the distal rectum. One possible etiology is, given the above finding, a tubo-ovarian abscess, related to retrograde propagation of endometritis. A second possibility is that this represents acute diverticulitis with peridiverticular abscess, given the close relationship with the distal sigmoid colon. A third possibility is this represents an abscess related to infected pelvic fluid from the prior gastric perforation, as the previous exam did demonstrate a small amount of free fluid in the pelvis. Finally, given the presence of the appendix (which isprominent in caliber) at the edge of the collection, this could represent perforated acute distal appendicitis. However, this is deemed less likely. Evidence of interim repair of previously demonstrated perforated gastric ulcer. No evidence of contrast leakage. No abnormal fluid collection at the operative site. Colonic diverticulosis. Slight rim enhancement of the gallbladder. Slight pericholecystic fluid. However, the gallbladder is nondistended, so doubt significance of this. Bilateral basilar pulmonary parenchymal groundglass opacity, likely on the basis of mild pulmonary edema Perforated pre-pyloric gastric ulcer -03/15 s/p UGI series: Negative for postoperative leak -03/10 SP 03/10 SP Exploratory Laparotomy, Abdominal washout. Partial omentectomy. Shane patch for repair of perforated pre-pyloric ulcer. -03/10 CT abd/p: Free intraperitoneal gas. Etiology not completely certain, but gas within and extending from the anterior gastric antral wall is suspicious for a perforated gastric ulcer. Perforated descending colon diverticulitis also possible but deemed much less likely. Free intraperitoneal fluid, presumably related to the above. Fatty liver. Basilar pulmonary parenchymal groundglass opacities. This could indicate pulmonary edema, among other possibilities. Subcentimeter low-attenuation renal lesions, too small to characterize, most likely benign simple cyst. No further follow-up necessary. 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 Acute encephalopathy, Sp -CT head: Chronic and age-related changes. Negative for acute intracranial bleed or mass effect VDRF, post-op; extubated 03/12 DARRON, SP Dm2 HTN Plan: -Cont Cefepime # 30 and PO Flagyl #24 for intraabdominal abscess while in house (end date 05/01/19), upon DC will may change to Invanz to complete the course - Monitor weekly CBC, CMP - Would not recommend PO abx in this case lack of cultures and unclear nature of the infection. -03/22 SP Fluconazole #10 -03/15 SP Zosyn #6 -03/10 SP IV Vancomycin #1, Ancef x1 -Monitor CBC/CMP, temperatures -Sx f/u -wound care per surgical team -aspiration precautions Subjective Allergies: Coded Allergies: No Known Allergies (Unverified , 03/10/19) Subjective comfortable no acute event Objective Vital Signs Last 24 Hour Vital Signs Date Time Temp Pulse Resp B/P (MAP) Pulse Ox O2 Delivery O2 Flow Rate FiO2 04/18/19 12:00 98.2 77 18 122/76 (91) 96 04/18/19 09:00 Nasal Cannula 3.0 Room Air 04/18/19 08:00 98.1 96 18 127/78 (94) 100 04/18/19 04:00 97.3 95 20 103/71 (82) 96 04/17/19 23:30 97.6 85 20 118/62 (80) 98 04/17/19 20:05 Room Air Room Air 04/17/19 20:00 97.4 81 20 124/63 (83) 96 04/17/19 16:00 98.2 92 18 124/66 (85) 99 Height (Feet): 5 Height (Inches): 0.00 Weight (Pounds): 99 Respiratory/Chest: lungs clear Cardiovascular: normal rate Abdomen: soft, non tender Laboratory Tests Test 04/18/19 04:05 04/18/19 11:15 Activated Partial Thromboplast Time 34 SEC (23-33) H > 150 SEC (23-33) *H Current Medications Medications (Trade) Dose Ordered Sig/Shantelle Route PRN Reason Start Time Stop Time Status Last Admin Dose Admin Acetaminophen (Tylenol) 650 mg Q4H PRN ORAL Mild Pain/Temp > 100.5 03/19/19 16:00 04/18/19 15:59 03/31/19 21:22 Barium Sulfate (Readi-Cat 2) 450 ml PRN PRN ORAL Radiology Procedure 03/27/19 13:30 04/26/19 13:29 04/13/19 08:21 Cefepime HCl 1 gm/ Dextrose 55 ml @ 110 mls/hr DAILY IVPB 03/30/19 09:00 04/29/19 23:59 04/18/19 09:45 Dextrose (Dextrose 50%) 25 ml Q30M PRN IV Hypoglycemia 03/23/19 08:45 04/22/19 08:44 Dextrose (Dextrose 50%) 50 ml Q30M PRN IV Hypoglycemia 03/23/19 08:45 04/22/19 08:44 Glipizide (Glucotrol) 5 mg BIAC ORAL 03/21/19 16:30 04/20/19 16:29 04/18/19 05:33 Heparin Sodium/ Dextrose 500 ml @ 15.268 mls/ hr ADJUST PER PROTOCOL IV 04/18/19 13:00 05/18/19 12:59 04/18/19 13:08 Insulin Aspart (NovoLOG) BEFORE MEALS AND HS SUBQ 03/23/19 11:30 04/22/19 11:29 04/17/19 21:06 Magnesium Hydroxide (Mom) 30 ml DAILYPRN PRN ORAL Constipation 04/01/19 17:30 05/01/19 17:29 04/01/19 17:42 Metronidazole (Flagyl) 500 mg Q8HR ORAL 03/23/19 14:00 04/29/19 23:59 04/18/19 05:27 Nateglinide (Starlix) 120 mg TIAC ORAL 03/23/19 11:30 04/22/19 11:29 04/18/19 05:32 Potassium Chloride (K-Dur) 40 meq BID ORAL 04/13/19 18:00 05/13/19 17:59 04/18/19 09:46 Smooth Weinstein MD Apr 18, 2019 14:44
[2019-04-18 16:00] VITALS: BP 131/90
--- NOTE | 2019-04-18 16:38 | Surgery Progress Note ---
Surgery Progress Note Subjective Procedure Performed ex lap with imelda patch, washout, omentectomy Additional Comments on heparin labs noted exam stable and benign afebrile, HD stable comfortable Objective Last 24 Hour Vital Signs Date Time Temp Pulse Resp B/P (MAP) Pulse Ox O2 Delivery O2 Flow Rate FiO2 04/18/19 12:00 98.2 77 18 122/76 (91) 96 04/18/19 09:00 Nasal Cannula 3.0 Room Air 04/18/19 08:00 98.1 96 18 127/78 (94) 100 04/18/19 04:00 97.3 95 20 103/71 (82) 96 04/17/19 23:30 97.6 85 20 118/62 (80) 98 04/17/19 20:05 Room Air Room Air 04/17/19 20:00 97.4 81 20 124/63 (83) 96 I&O Intake and Output 04/17/19 04/18/19 19:00 07:00 Intake Total 702.948 ml 671.541 ml Balance 702.948 ml 671.541 ml Intake Oral 480 ml 500 ml IV Total 222.948 ml 171.541 ml # Voids 1 2 Dressing: dry Wound: clean Drains: none Cardiovascular: RSR Respiratory: clear Abdomen: soft, non-tender, present bowel sounds Extremities: no edema, no tenderness, no cyanosis Laboratory Tests Test 04/18/19 04:05 04/18/19 11:15 Activated Partial Thromboplast Time 34 SEC (23-33) H > 150 SEC (23-33) *H Assessment Post-op Diagnosis perforated prepyloric gastric ulcer Plan Problems: (1) Peritonitis Assessment & Plan: 84F with perforated abdominal viscus likely gastric perforation based on CT findings s/p imelda patch recovering labs improved exam improved advance diet anna removed CT and US noted repeat CT noted Unusual fluid and phlegmon changes seen in the right adnexal region. Comparison with prior study of 03/27/2019 is difficult, due to lack of IV contrast administration currently. However, there appears to be likely decreased discrete fluid but is perhaps slightly increased phlegmon component. In addition, the appendix appears distended with fluid currently but intact. The significance of this finding and he of the surrounding abnormalities is uncertain. There is also a tiny 13 mm collection in the right perirectal region which is unchanged Persistent distention of the endometrium with fluid Slightly increased infiltration of the omental fat adjacent to the distal greater curvature of the stomach without discrete fluid collection. This may represent progressive postsurgical scarring. Other findings as noted, including degenerative spondylosis, left hip prosthesis , old healed left inferior pubic ramus fracture abd fluid collection possible abscess unable to drain via IR can consider surgical drainage but would be high risk and with morbidity and mortality risk given age and medical condition family aware plan for medical therapy with IV abx given stable improving with medical management labs improved exam benign will monitor thank you (2) Perforated abdominal viscus Mike Sheth Apr 18, 2019 16:38
--- NOTE | 2019-04-18 17:52 | NUR ---
CASE MANAGEMENT: REVIEW 04/16/2019 SI:PERFORATED VISCOUS. VSS LABS: NONE IS: CEFEPIME IV QD HEPARIN DRIP PER PROTOCOL FLAGYL PO Q8H MED/SURG STATUS 04/17/2019 SI:PERFORATED VISCOUS. VSS LABS: NONE IS: CEFEPIME IV QD HEPARIN DRIP PER PROTOCOL FLAGYL PO Q8H MED/SURG STATUS 04/18/2019 SI:PERFORATED VISCOUS. VSS LABS: NONE IS: CEFEPIME IV QD HEPARIN DRIP PER PROTOCOL FLAGYL PO Q8H MED/SURG STATUS
--- NOTE | 2019-04-18 19:20 | NUR ---
NURSE NOTES: Received report from SARAI Huang. Patient sitting up in chair, no distress noted, family member at bedside. Lab PTT result not received yet. Will continue to monitor.
[2019-04-18 20:00] VITALS: BP 120/65
--- NOTE | 2019-04-18 20:22 | NUR ---
NURSE NOTES: Heparin dose changed verified with charge nurse. Pt is ambulatory, requiring assistance due to unsteady gait. Comb Setter apparent blood in stool or urine. No increase in bleeding during blood sugar assessment 2 to heparin use . Lab arrived to draw scheduled PTT,. On coming nurse made aware of new orders. And pt DVT to left leg. Bilateral IV line remain asymptomatic. Fall precautions reinforced to use call light. Receptive this shift. Current paln for antibiotic use until the Apr. All changes provide to oncoming rn in report
--- NOTE | 2019-04-18 20:27 | NUR ---
HAND-OFF: Report given to Brandi MOON.
--- NOTE | 2019-04-18 20:30 | NUR ---
NURSE NOTES: Patient alert, oriented. No distress noted, denies any pain. Bed in low position, locked, side rails up x2, call light within reach. Son at bedside assisting with care, very supportive. IV sites clear and patent. No bleeding noted. Encouraged to call as needed. Will continue to monitor.
--- NOTE | 2019-04-18 20:32 | Internal Med Progress Note ---
Subjective Date of Service: Apr 18, 2019 Physician Name Zen Paige Attending Physician Marcos Silva MD Current Medications Medications (Trade) Dose Ordered Sig/Shantelle Route PRN Reason Start Time Stop Time Status Last Admin Dose Admin Barium Sulfate (Readi-Cat 2) 450 ml PRN PRN ORAL Radiology Procedure 03/27/19 13:30 04/26/19 13:29 04/13/19 08:21 Cefepime HCl 1 gm/ Dextrose 55 ml @ 110 mls/hr DAILY IVPB 03/30/19 09:00 04/29/19 23:59 04/18/19 09:45 Dextrose (Dextrose 50%) 25 ml Q30M PRN IV Hypoglycemia 03/23/19 08:45 04/22/19 08:44 Dextrose (Dextrose 50%) 50 ml Q30M PRN IV Hypoglycemia 03/23/19 08:45 04/22/19 08:44 Glipizide (Glucotrol) 5 mg BIAC ORAL 03/21/19 16:30 04/20/19 16:29 04/18/19 16:30 Heparin Sodium/ Dextrose 500 ml @ 15.268 mls/ hr ADJUST PER PROTOCOL IV 04/18/19 13:00 05/18/19 12:59 04/18/19 13:08 Insulin Aspart (NovoLOG) BEFORE MEALS AND HS SUBQ 03/23/19 11:30 04/22/19 11:29 04/18/19 18:10 Magnesium Hydroxide (Mom) 30 ml DAILYPRN PRN ORAL Constipation 04/01/19 17:30 05/01/19 17:29 04/01/19 17:42 Metronidazole (Flagyl) 500 mg Q8HR ORAL 03/23/19 14:00 04/29/19 23:59 04/18/19 15:18 Nateglinide (Starlix) 120 mg TIAC ORAL 03/23/19 11:30 04/22/19 11:29 04/18/19 16:30 Potassium Chloride (K-Dur) 40 meq BID ORAL 04/13/19 18:00 05/13/19 17:59 04/18/19 18:09 Allergies: Coded Allergies: No Known Allergies (Unverified , 03/10/19) ROS Limited/Unobtainable: No Constitutional: Reports: no symptoms HEENT: Reports: no symptoms Cardiovascular: Reports: no symptoms Respiratory: Reports: no symptoms Gastrointestinal/Abdominal: Reports: no symptoms Genitourinary: Reports: no symptoms Neurologic/Psychiatric: Reports: no symptoms Subjective 84 YO F admitted with abdominal pain. S/P exploratory laparotomy 03/10/19. Now intra-abdominal abscess. Cover for Int Med-Dr Silva. Objective Last Vital Signs Date Time Temp Pulse Resp B/P (MAP) Pulse Ox O2 Delivery O2 Flow Rate FiO2 04/18/19 16:00 97.9 90 18 131/90 (104) 100 04/18/19 09:00 Nasal Cannula 3.0 Room Air Laboratory Tests Test 04/18/19 04:05 04/18/19 11:15 04/18/19 19:15 Activated Partial Thromboplast Time 34 SEC (23-33) H > 150 SEC (23-33) *H Pending Intake and Output 04/17/19 04/18/19 19:00 07:00 Intake Total 702.948 ml 671.541 ml Balance 702.948 ml 671.541 ml Intake Oral 480 ml 500 ml IV Total 222.948 ml 171.541 ml # Voids 1 2 Objective PHYSICAL EXAMINATION: GENERAL: The patient is a well developed, well nourished female who is intubated and sedated. HEENT: Eyes, pupils equal and responsive to light and accommodation. Extraocular movements are intact. NECK: Supple without lymphadenopathy. CHEST: Nasc canula; Few diffuse wheezes bilaterally. Otherwise, without wheezes or rales. CARDIOVASCULAR: Regular rhythm rate. S1-S2 are normal without murmurs, rubs, or gallops. ABDOMEN: NGT; Soft, nontender with decreased bowel sounds. No evidence of hepatosplenomegaly. no rebound or guarding noted. EXTREMITIES: Negative for clubbing, cyanosis, edema. RECTAL/GENITAL: Not performed. NEUROLOGIC: Cranial nerves II through XII are grossly intact without focal deficits. Assessment/Plan Assessment/Plan ASSESSMENT: This is an 84-year-old female. 1. Perforated gastric ulcer 2. Abdominal pain. 3. Nausea with vomiting. 4. Diabetes type 2. 5. Hypertension. 6. Post Op fever-resolved 7. Leukocytosis 8. Intraabdominal abscess TREATMENT: 1. Perforated gastric ulcer. A General Surgery consultation has been obtained with Dr. Sheth. S/P exploratory laparotomy 03/10/19=perforated Pre pyloric ulcer. Tolerating regular diet; NGT discontinued per surgery 2. Diabetes type 2. NovoLog sliding scale has been instituted. 3. Hypertension. The patient is currently hypotensive. 4. Respiratory failure. S/P extubation 03/12/19. A Pulmonary consultation has been obtained with Dr. Bibiana Pennington. 5. Med/surg 6. ABX=Ertapenem for 6 weeks-end date 05/01/19 per ID 7. Surgical intervention on hold for intraabdominal abscess-see surgery note. Will require 6 weeks of ertapenem per ID 8. WBC now normal; Discharge planning 9. CT abdomen/pelvis results from 04/13/19=right adnexal phlegmon Zen Paige MD Apr 18, 2019 20:32
--- NOTE | 2019-04-18 20:45 | NUR ---
NURSE NOTES: Received call from Mat from pharmacy, states has contacted physician and received orders to increase Heparin to 19 units/kg/hr, no bolus to be given at this time. Will repeat PTT 6 hours after change made.
[2019-04-19] VITALS: BP 136/73
[2019-04-19 03:28] LABS: ANION GAP 8 mmol/L (5-15); BLOOD UREA NITROGEN 9 mg/dL (7-18); CALCIUM 9.5 MG/DL (8.5-10.1); CARBON DIOXIDE 23 MMOL/L (21-32); CHLORIDE 108 MMOL/L (98-107); CREATININE 0.7 MG/DL (0.55-1.30); POTASSIUM 4.6 MMOL/L (3.5-5.1); SODIUM 139 MMOL/L (136-145)
[2019-04-19 03:50] LABS: HEMATOCRIT 34.8 % (37.0-47.0); HEMOGLOBIN 11.2 G/DL (12.0-16.0); MEAN CORPUSCULAR VOLUME 83 FL (80-99); PLATELET COUNT 294 K/UL (150-450); RED BLOOD COUNT 4.18 M/UL (4.20-5.40); RED CELL DISTRIBUTION WIDTH 16.5 % (11.6-14.8); WHITE BLOOD COUNT 7.4 K/UL (4.8-10.8)
[2019-04-19 04:00] VITALS: BP 109/58
[2019-04-19] MEDS ORDERED: Heparin 25,000u/D5W 500ml 500 ML IV SCH (04:15)
[2019-04-19] MEDS ORDERED: Heparin Sod 1000 units/ml 10ml IV ONE (04:15)
--- NOTE | 2019-04-19 04:15 | NUR ---
NURSE NOTES: Discussed with pharmacy changes in Heparin drip per protocol, see eMAR. Unable to obtain new sticker to scan as printer is not working. Charge nurse aware, administered bolus and changed drip rate per order, double checked with charge.
[2019-04-19] MEDS: NovoLOG Insulin Flexpen SUBQ SCH ×4 (06:30→22:01)
[2019-04-19] MEDS: GlipiZIDE 5mg tab ORAL SCH ×2 (06:53→16:40)
[2019-04-19] MEDS: metroNIDAZOLE 500mg tab ORAL SCH ×3 (06:53→21:51)
--- NOTE | 2019-04-19 07:40 | NUR ---
HAND-OFF: Report given to SARAI Keller. Rounds done.
--- NOTE | 2019-04-19 07:45 | NUR ---
NURSE NOTES: Pt sitting in bed w/bed in lowest position and call light within reach. Pt A&Ox3, VSS, and in no apparent distress. IV sites intact/asymptomatic w/heparin running @ 21 units/kg/hr; steri-strips C/D/I; and optifoam noted on sacrum. Will continue to monitor.
[2019-04-19 08:00] VITALS: BP 127/73
[2019-04-19] MEDS: Cefepime HCl 1 GM in D5W 55 ML IVPB SCH (09:40)
--- NOTE | 2019-04-19 10:52 | Surgery Progress Note ---
Surgery Progress Note Subjective Procedure Performed ex lap with imelda patch, washout, omentectomy Additional Comments no acute events comfortable stable no pain tolerating diet Objective Last 24 Hour Vital Signs Date Time Temp Pulse Resp B/P (MAP) Pulse Ox O2 Delivery O2 Flow Rate FiO2 04/19/19 09:00 Room Air Room Air 04/19/19 08:00 98.2 98 18 127/73 (91) 99 04/19/19 04:00 98.2 92 18 109/58 (75) 98 04/19/19 00:00 98.3 84 18 136/73 (94) 95 04/18/19 21:00 Room Air Room Air 04/18/19 20:00 97.0 86 17 120/65 (83) 98 04/18/19 16:00 97.9 90 18 131/90 (104) 100 04/18/19 12:00 98.2 77 18 122/76 (91) 96 I&O Intake and Output 04/18/19 04/19/19 19:00 07:00 Intake Total 952.923 ml 418.861 ml Balance 952.923 ml 418.861 ml Intake Oral 820 ml 400 ml IV Total 132.923 ml 18.861 ml # Voids 4 1 # Bowel Movements 2 Wound: clean, dry Cardiovascular: RSR Respiratory: clear Abdomen: soft, flat, non-tender, present bowel sounds Extremities: no edema, no tenderness, no cyanosis Laboratory Tests Test 04/18/19 11:15 04/18/19 19:15 04/19/19 03:10 04/19/19 10:05 Activated Partial Thromboplast Time > 150 SEC (23-33) *H 64 SEC (23-33) H 62 SEC (23-33) H 89 SEC (23-33) H White Blood Count 7.4 K/UL (4.8-10.8) Red Blood Count 4.18 M/UL (4.20-5.40) L Hemoglobin 11.2 G/DL (12.0-16.0) L Hematocrit 34.8 % (37.0-47.0) L Mean Corpuscular Volume 83 FL (80-99) Mean Corpuscular Hemoglobin 26.7 PG (27.0-31.0) L Mean Corpuscular Hemoglobin Concent 32.1 G/DL (32.0-36.0) Red Cell Distribution Width 16.5 % (11.6-14.8) H Platelet Count 294 K/UL (150-450) Mean Platelet Volume 6.9 FL (6.5-10.1) Neutrophils (%) (Auto) % (45.0-75.0) Lymphocytes (%) (Auto) % (20.0-45.0) Monocytes (%) (Auto) % (1.0-10.0) Eosinophils (%) (Auto) % (0.0-3.0) Basophils (%) (Auto) % (0.0-2.0) Sodium Level 139 MMOL/L (136-145) Potassium Level 4.6 MMOL/L (3.5-5.1) Chloride Level 108 MMOL/L (98-107) H Carbon Dioxide Level 23 MMOL/L (21-32) Anion Gap 8 mmol/L (5-15) Blood Urea Nitrogen 9 mg/dL (7-18) Creatinine 0.7 MG/DL (0.55-1.30) Estimat Glomerular Filtration Rate mL/min (>60) Glucose Level 74 MG/DL (74-106) Calcium Level 9.5 MG/DL (8.5-10.1) Assessment Post-op Diagnosis perforated prepyloric gastric ulcer Plan Problems: (1) Peritonitis Assessment & Plan: 84F with perforated abdominal viscus likely gastric perforation based on CT findings s/p imelda patch recovering labs improved exam improved advance diet anna removed CT and US noted repeat CT noted Unusual fluid and phlegmon changes seen in the right adnexal region. Comparison with prior study of 03/27/2019 is difficult, due to lack of IV contrast administration currently. However, there appears to be likely decreased discrete fluid but is perhaps slightly increased phlegmon component. In addition, the appendix appears distended with fluid currently but intact. The significance of this finding and he of the surrounding abnormalities is uncertain. There is also a tiny 13 mm collection in the right perirectal region which is unchanged Persistent distention of the endometrium with fluid Slightly increased infiltration of the omental fat adjacent to the distal greater curvature of the stomach without discrete fluid collection. This may represent progressive postsurgical scarring. Other findings as noted, including degenerative spondylosis, left hip prosthesis , old healed left inferior pubic ramus fracture abd fluid collection possible abscess unable to drain via IR can consider surgical drainage but would be high risk and with morbidity and mortality risk given age and medical condition family aware plan for medical therapy with IV abx given stable improving with medical management labs improved exam benign will monitor thank you (2) Perforated abdominal viscus Mike Sheth Apr 19, 2019 10:52
--- NOTE | 2019-04-19 11:50 | Nephrology Progress Note ---
Assessment/Plan Problem List: (1) Perforated abdominal viscus (2) Hypokalemia (3) Hypomagnesemia (4) Diabetes mellitus (5) Anemia Assessment WBC rising Post lap on 03/10 Low K Low Phos Low Mag Anemia DM h/o HTN Plan add oral hypoglycemics for high BS DC IV change all to orals Mag and K and Phos IV as needed Anemia claudio Keep BP and BS in check per orders DC planning Subjective ROS Limited/Unobtainable: No Objective Objective Last 24 Hour Vital Signs Date Time Temp Pulse Resp B/P (MAP) Pulse Ox O2 Delivery O2 Flow Rate FiO2 04/19/19 09:00 Room Air Room Air 04/19/19 08:00 98.2 98 18 127/73 (91) 99 04/19/19 04:00 98.2 92 18 109/58 (75) 98 04/19/19 00:00 98.3 84 18 136/73 (94) 95 04/18/19 21:00 Room Air Room Air 04/18/19 20:00 97.0 86 17 120/65 (83) 98 04/18/19 16:00 97.9 90 18 131/90 (104) 100 04/18/19 12:00 98.2 77 18 122/76 (91) 96 Intake and Output 04/18/19 04/19/19 19:00 07:00 Intake Total 952.923 ml 418.861 ml Balance 952.923 ml 418.861 ml Intake Oral 820 ml 400 ml IV Total 132.923 ml 18.861 ml # Voids 4 1 # Bowel Movements 2 Laboratory Tests 04/18/19 19:15: Activated Partial Thromboplast Time 64H 04/19/19 03:10: Activated Partial Thromboplast Time 62H, White Blood Count 7.4, Red Blood Count 4.18L, Hemoglobin 11.2L, Hematocrit 34.8L, Mean Corpuscular Volume 83, Mean Corpuscular Hemoglobin 26.7L, Mean Corpuscular Hemoglobin Concent 32.1, Red Cell Distribution Width 16.5H, Platelet Count 294, Mean Platelet Volume 6.9, Neutrophils (%) (Auto) , Lymphocytes (%) (Auto) , Monocytes (%) (Auto) , Eosinophils (%) (Auto) , Basophils (%) (Auto) , Sodium Level 139, Potassium Level 4.6, Chloride Level 108H, Carbon Dioxide Level 23, Anion Gap 8, Blood Urea Nitrogen 9, Creatinine 0.7, Estimat Glomerular Filtration Rate , Glucose Level 74, Calcium Level 9.5 04/19/19 10:05: Activated Partial Thromboplast Time 89H Height (Feet): 5 Height (Inches): 0.00 Weight (Pounds): 99 General Appearance: no apparent distress Objective no change El Clark MD Apr 19, 2019 11:50
--- NOTE | 2019-04-19 11:53 | NUR ---
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 98.2 HR 98 RR 18 B/P 127/75 PTT 89 IS: HEPARIN GTT CEFEPIME IV FLAGYL PO STARLIX PO MED/SURG STATUS
[2019-04-19 12:00] VITALS: BP 121/69
--- NOTE | 2019-04-19 12:00 | Infectious Diseases Prog Note ---
Assessment/Plan Assessment/Plan A: Fever, SP Leukocytosis, -S-p- Probable Sepsis- 2ry to likely intraabdominal abscess- ?source (post-op complication vs order dispatcher or sigmoid origin) -04/13 Sp Unusual fluid and phlegmon changes seen in the right adnexal region. Comparison with prior study of 03/27/2019 is difficult, due to lack of IV contrast administration currently. However, there appears to be likely decreased discrete fluid but is perhaps slightly increased phlegmon component. In addition, the appendix appears distended with fluid currently but intact. The significance of this finding and he of the surrounding abnormalities is uncertain. There is also a tiny 13 mm collection in the right perirectal region which is unchanged Persistent distention of the endometrium with fluid Slightly increased infiltration of the omental fat adjacent to the distal greater curvature of the stomach without discrete fluid collection. This may represent progressive postsurgical scarring. 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 Right adnexal region irregular fluid collection, corresponding to findings reported on recent CT scan. This is contiguous with an immediately adjacent segment of bowel.This likewise corresponds to findings on recent CT. Note that the fluid collection and extent are better delineated on the prior study. Nonvisualized left ovary -CT abd/p: Markedly thickened and fluid-filled endometrium. 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 Complex multilobulated fluid collection with areas of enhancing soft tissue in the right adnexal region. This measures 5.5 x 7 x 3.9 cm. There is also a second tiny collection adjacent to the distal rectum. One possible etiology is, given the above finding, a tubo-ovarian abscess, related to retrograde propagation of endometritis. A second possibility is that this represents acute diverticulitis with peridiverticular abscess, given the close relationship with the distal sigmoid colon. A third possibility is this represents an abscess related to infected pelvic fluid from the prior gastric perforation, as the previous exam did demonstrate a small amount of free fluid in the pelvis. Finally, given the presence of the appendix (which isprominent in caliber) at the edge of the collection, this could represent perforated acute distal appendicitis. However, this is deemed less likely. Evidence of interim repair of previously demonstrated perforated gastric ulcer. No evidence of contrast leakage. No abnormal fluid collection at the operative site. Colonic diverticulosis. Slight rim enhancement of the gallbladder. Slight pericholecystic fluid. However, the gallbladder is nondistended, so doubt significance of this. Bilateral basilar pulmonary parenchymal groundglass opacity, likely on the basis of mild pulmonary edema Perforated pre-pyloric gastric ulcer -03/15 s/p UGI series: Negative for postoperative leak -03/10 SP 03/10 SP Exploratory Laparotomy, Abdominal washout. Partial omentectomy. Shane patch for repair of perforated pre-pyloric ulcer. -03/10 CT abd/p: Free intraperitoneal gas. Etiology not completely certain, but gas within and extending from the anterior gastric antral wall is suspicious for a perforated gastric ulcer. Perforated descending colon diverticulitis also possible but deemed much less likely. Free intraperitoneal fluid, presumably related to the above. Fatty liver. Basilar pulmonary parenchymal groundglass opacities. This could indicate pulmonary edema, among other possibilities. Subcentimeter low-attenuation renal lesions, too small to characterize, most likely benign simple cyst. No further follow-up necessary. 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 Acute encephalopathy, Sp -CT head: Chronic and age-related changes. Negative for acute intracranial bleed or mass effect VDRF, post-op; extubated 03/12 DARRON, SP Dm2 HTN Plan: -Cont Cefepime # 31 and PO Flagyl #25 for intraabdominal abscess while in house (end date 05/01/19), upon DC will may change to Invanz to complete the course - Monitor weekly CBC, CMP - Would not recommend PO abx in this case lack of cultures and unclear nature of the infection. -03/22 SP Fluconazole #10 -03/15 SP Zosyn #6 -03/10 SP IV Vancomycin #1, Ancef x1 -Monitor CBC/CMP, temperatures -Sx f/u -wound care per surgical team -aspiration precautions Subjective Allergies: Coded Allergies: No Known Allergies (Unverified , 03/10/19) Subjective no acute event Objective Vital Signs Last 24 Hour Vital Signs Date Time Temp Pulse Resp B/P (MAP) Pulse Ox O2 Delivery O2 Flow Rate FiO2 04/19/19 09:00 Room Air Room Air 04/19/19 08:00 98.2 98 18 127/73 (91) 99 04/19/19 04:00 98.2 92 18 109/58 (75) 98 04/19/19 00:00 98.3 84 18 136/73 (94) 95 04/18/19 21:00 Room Air Room Air 04/18/19 20:00 97.0 86 17 120/65 (83) 98 04/18/19 16:00 97.9 90 18 131/90 (104) 100 04/18/19 12:00 98.2 77 18 122/76 (91) 96 Height (Feet): 5 Height (Inches): 0.00 Weight (Pounds): 99 HEENT: mucous membranes moist Respiratory/Chest: normal breath sounds Cardiovascular: regular rhythm Abdomen: no organomegaly Laboratory Tests Test 04/18/19 19:15 04/19/19 03:10 04/19/19 10:05 Activated Partial Thromboplast Time 64 SEC (23-33) H 62 SEC (23-33) H 89 SEC (23-33) H White Blood Count 7.4 K/UL (4.8-10.8) Red Blood Count 4.18 M/UL (4.20-5.40) L Hemoglobin 11.2 G/DL (12.0-16.0) L Hematocrit 34.8 % (37.0-47.0) L Mean Corpuscular Volume 83 FL (80-99) Mean Corpuscular Hemoglobin 26.7 PG (27.0-31.0) L Mean Corpuscular Hemoglobin Concent 32.1 G/DL (32.0-36.0) Red Cell Distribution Width 16.5 % (11.6-14.8) H Platelet Count 294 K/UL (150-450) Mean Platelet Volume 6.9 FL (6.5-10.1) Neutrophils (%) (Auto) % (45.0-75.0) Lymphocytes (%) (Auto) % (20.0-45.0) Monocytes (%) (Auto) % (1.0-10.0) Eosinophils (%) (Auto) % (0.0-3.0) Basophils (%) (Auto) % (0.0-2.0) Sodium Level 139 MMOL/L (136-145) Potassium Level 4.6 MMOL/L (3.5-5.1) Chloride Level 108 MMOL/L (98-107) H Carbon Dioxide Level 23 MMOL/L (21-32) Anion Gap 8 mmol/L (5-15) Blood Urea Nitrogen 9 mg/dL (7-18) Creatinine 0.7 MG/DL (0.55-1.30) Estimat Glomerular Filtration Rate mL/min (>60) Glucose Level 74 MG/DL (74-106) Calcium Level 9.5 MG/DL (8.5-10.1) Current Medications Medications (Trade) Dose Ordered Sig/Shantelle Route PRN Reason Start Time Stop Time Status Last Admin Dose Admin Barium Sulfate (Readi-Cat 2) 450 ml PRN PRN ORAL Radiology Procedure 03/27/19 13:30 04/26/19 13:29 04/13/19 08:21 Cefepime HCl 1 gm/ Dextrose 55 ml @ 110 mls/hr DAILY IVPB 03/30/19 09:00 04/29/19 23:59 04/19/19 09:40 Dextrose (Dextrose 50%) 25 ml Q30M PRN IV Hypoglycemia 03/23/19 08:45 04/22/19 08:44 Dextrose (Dextrose 50%) 50 ml Q30M PRN IV Hypoglycemia 03/23/19 08:45 04/22/19 08:44 Glipizide (Glucotrol) 5 mg BIAC ORAL 03/21/19 16:30 04/20/19 16:29 04/19/19 06:53 Heparin Sodium/ Dextrose 500 ml @ 18.861 mls/ hr ADJUST PER PROTOCOL IV 04/19/19 04:15 05/18/19 20:44 04/19/19 04:13 Insulin Aspart (NovoLOG) BEFORE MEALS AND HS SUBQ 03/23/19 11:30 04/22/19 11:29 04/18/19 18:10 Magnesium Hydroxide (Mom) 30 ml DAILYPRN PRN ORAL Constipation 04/01/19 17:30 05/01/19 17:29 04/01/19 17:42 Metronidazole (Flagyl) 500 mg Q8HR ORAL 03/23/19 14:00 04/29/19 23:59 04/19/19 06:53 Nateglinide (Starlix) 120 mg TIAC ORAL 03/23/19 11:30 04/22/19 11:29 04/19/19 06:53 Potassium Chloride (K-Dur) 40 meq BID ORAL 04/13/19 18:00 05/13/19 17:59 04/19/19 09:41 Smooth Weinstein MD Apr 19, 2019 12:00
[2019-04-19] MEDS: Heparin 25,000u/D5W 500ml 500 ML IV SCH (12:42)
[2019-04-19 16:00] VITALS: BP 123/71
--- NOTE | 2019-04-19 17:22 | Internal Med Progress Note ---
Subjective Date of Service: Apr 19, 2019 Physician Name Zen Paige Attending Physician Marcos Silva MD Current Medications Medications (Trade) Dose Ordered Sig/Shantelle Route PRN Reason Start Time Stop Time Status Last Admin Dose Admin Barium Sulfate (Readi-Cat 2) 450 ml PRN PRN ORAL Radiology Procedure 03/27/19 13:30 04/26/19 13:29 04/13/19 08:21 Cefepime HCl 1 gm/ Dextrose 55 ml @ 110 mls/hr DAILY IVPB 03/30/19 09:00 04/29/19 23:59 04/19/19 09:40 Dextrose (Dextrose 50%) 25 ml Q30M PRN IV Hypoglycemia 03/23/19 08:45 04/22/19 08:44 Dextrose (Dextrose 50%) 50 ml Q30M PRN IV Hypoglycemia 03/23/19 08:45 04/22/19 08:44 Glipizide (Glucotrol) 5 mg BIAC ORAL 03/21/19 16:30 04/20/19 16:29 04/19/19 16:40 Heparin Sodium/ Dextrose 500 ml @ 18.861 mls/ hr ADJUST PER PROTOCOL IV 04/19/19 12:45 05/18/19 20:44 04/19/19 12:42 Insulin Aspart (NovoLOG) BEFORE MEALS AND HS SUBQ 03/23/19 11:30 04/22/19 11:29 04/18/19 18:10 Magnesium Hydroxide (Mom) 30 ml DAILYPRN PRN ORAL Constipation 04/01/19 17:30 05/01/19 17:29 04/01/19 17:42 Metronidazole (Flagyl) 500 mg Q8HR ORAL 03/23/19 14:00 04/29/19 23:59 04/19/19 14:08 Nateglinide (Starlix) 120 mg TIAC ORAL 03/23/19 11:30 04/22/19 11:29 04/19/19 16:40 Potassium Chloride (K-Dur) 40 meq BID ORAL 04/13/19 18:00 05/13/19 17:59 04/19/19 17:03 Allergies: Coded Allergies: No Known Allergies (Unverified , 03/10/19) ROS Limited/Unobtainable: No Constitutional: Reports: no symptoms HEENT: Reports: no symptoms Cardiovascular: Reports: no symptoms Respiratory: Reports: no symptoms Gastrointestinal/Abdominal: Reports: no symptoms Genitourinary: Reports: no symptoms Neurologic/Psychiatric: Reports: no symptoms Subjective 84 YO F admitted with abdominal pain. S/P exploratory laparotomy 03/10/19. Now intra-abdominal abscess. Cover for Reagan Velazquez-Dr Silva. Objective Last Vital Signs Date Time Temp Pulse Resp B/P (MAP) Pulse Ox O2 Delivery O2 Flow Rate FiO2 04/19/19 16:00 98.3 96 18 123/71 (88) 99 04/19/19 09:00 Room Air Room Air 04/18/19 09:00 3.0 Laboratory Tests Test 04/18/19 19:15 04/19/19 03:10 04/19/19 10:05 Activated Partial Thromboplast Time 64 SEC (23-33) H 62 SEC (23-33) H 89 SEC (23-33) H White Blood Count 7.4 K/UL (4.8-10.8) Red Blood Count 4.18 M/UL (4.20-5.40) L Hemoglobin 11.2 G/DL (12.0-16.0) L Hematocrit 34.8 % (37.0-47.0) L Mean Corpuscular Volume 83 FL (80-99) Mean Corpuscular Hemoglobin 26.7 PG (27.0-31.0) L Mean Corpuscular Hemoglobin Concent 32.1 G/DL (32.0-36.0) Red Cell Distribution Width 16.5 % (11.6-14.8) H Platelet Count 294 K/UL (150-450) Mean Platelet Volume 6.9 FL (6.5-10.1) Neutrophils (%) (Auto) % (45.0-75.0) Lymphocytes (%) (Auto) % (20.0-45.0) Monocytes (%) (Auto) % (1.0-10.0) Eosinophils (%) (Auto) % (0.0-3.0) Basophils (%) (Auto) % (0.0-2.0) Sodium Level 139 MMOL/L (136-145) Potassium Level 4.6 MMOL/L (3.5-5.1) Chloride Level 108 MMOL/L (98-107) H Carbon Dioxide Level 23 MMOL/L (21-32) Anion Gap 8 mmol/L (5-15) Blood Urea Nitrogen 9 mg/dL (7-18) Creatinine 0.7 MG/DL (0.55-1.30) Estimat Glomerular Filtration Rate mL/min (>60) Glucose Level 74 MG/DL (74-106) Calcium Level 9.5 MG/DL (8.5-10.1) Intake and Output 04/18/19 04/19/19 19:00 07:00 Intake Total 952.923 ml 418.861 ml Balance 952.923 ml 418.861 ml Intake Oral 820 ml 400 ml IV Total 132.923 ml 18.861 ml # Voids 4 1 # Bowel Movements 2 Objective PHYSICAL EXAMINATION: GENERAL: The patient is a well developed, well nourished female who is intubated and sedated. HEENT: Eyes, pupils equal and responsive to light and accommodation. Extraocular movements are intact. NECK: Supple without lymphadenopathy. CHEST: Nasc canula; Few diffuse wheezes bilaterally. Otherwise, without wheezes or rales. CARDIOVASCULAR: Regular rhythm rate. S1-S2 are normal without murmurs, rubs, or gallops. ABDOMEN: NGT; Soft, nontender with decreased bowel sounds. No evidence of hepatosplenomegaly. no rebound or guarding noted. EXTREMITIES: Negative for clubbing, cyanosis, edema. RECTAL/GENITAL: Not performed. NEUROLOGIC: Cranial nerves II through XII are grossly intact without focal deficits. Assessment/Plan Assessment/Plan ASSESSMENT: This is an 84-year-old female. 1. Perforated gastric ulcer 2. Abdominal pain. 3. Nausea with vomiting. 4. Diabetes type 2. 5. Hypertension. 6. Post Op fever-resolved 7. Leukocytosis 8. Intraabdominal abscess TREATMENT: 1. Perforated gastric ulcer. A General Surgery consultation has been obtained with Dr. Sheth. S/P exploratory laparotomy 03/10/19=perforated Pre pyloric ulcer. Tolerating regular diet; NGT discontinued per surgery 2. Diabetes type 2. NovoLog sliding scale has been instituted. 3. Hypertension. The patient is currently hypotensive. 4. Respiratory failure. S/P extubation 03/12/19. A Pulmonary consultation has been obtained with Dr. Bibiana Pennington. 5. Med/surg 6. ABX=Ertapenem for 6 weeks-end date 05/01/19 per ID 7. Surgical intervention on hold for intraabdominal abscess-see surgery note. Will require 6 weeks of ertapenem per ID 8. WBC now normal; Discharge planning 9. CT abdomen/pelvis results from 04/13/19=right adnexal phlegmon Zen Paige MD Apr 19, 2019 17:22
--- NOTE | 2019-04-19 19:16 | NUR ---
HAND-OFF: Report given to SARAI Cortez.
[2019-04-19 20:00] VITALS: BP 126/71
--- NOTE | 2019-04-19 21:07 | NUR ---
NURSE NOTES: Received report from SARAI Keller. Patient is sitting up in chair. Heparin drip is active infusing to IV. IV site is c/d/i. No c/o of pain or SOB on room air. Call light is within reach. Walker is next to patient. Family at bedside. Will continue to monitor.
[2019-04-20] VITALS: BP 119/75
[2019-04-20 04:00] VITALS: BP 115/60
--- NOTE | 2019-04-20 05:08 | NUR ---
NURSE NOTES: Spoke to to Evonne from [employer]. Patient's PTT level see eMAR. No changes noted for heparin drip therapy per protocol.
[2019-04-20] MEDS: GlipiZIDE 5mg tab ORAL SCH (05:35)
[2019-04-20] MEDS: metroNIDAZOLE 500mg tab ORAL SCH ×3 (05:36→20:33)
[2019-04-20] MEDS: NovoLOG Insulin Flexpen SUBQ SCH ×4 (05:39→20:35)
--- NOTE | 2019-04-20 07:30 | NUR ---
NURSE NOTES: Pt lying in bed w/bed in lowest position and call light within reach. Pt A&Ox3, VSS, and in no apparent distress at this time. IV sites intact/asymptomatic w/heparin infusing; remaining steri-strips C/D/I; and sacral optifoam intact. Will continue to monitor.
--- NOTE | 2019-04-20 07:30 | NUR ---
HAND-OFF: Report given to SARAI Keller. Patient stable.
[2019-04-20 08:00] VITALS: BP 118/67
[2019-04-20] MEDS: Cefepime HCl 1 GM in D5W 55 ML IVPB SCH (08:52)
[2019-04-20 12:00] VITALS: BP 116/73
[2019-04-20] MEDS: Heparin 25,000u/D5W 500ml 500 ML IV SCH (13:15)
--- NOTE | 2019-04-20 13:44 | Nephrology Progress Note ---
Assessment/Plan Problem List: (1) Perforated abdominal viscus (2) Hypokalemia (3) Hypomagnesemia (4) Diabetes mellitus (5) Anemia Assessment WBC rising Post lap on 03/10 Low K Low Phos Low Mag Anemia DM h/o HTN Plan add oral hypoglycemics for high BS DC IV change all to orals Mag and K and Phos IV as needed Anemia claudio Keep BP and BS in check per orders DC planning Subjective ROS Limited/Unobtainable: No Constitutional: Reports: malaise Objective Objective Last 24 Hour Vital Signs Date Time Temp Pulse Resp B/P (MAP) Pulse Ox O2 Delivery O2 Flow Rate FiO2 04/20/19 12:00 98.0 97 16 116/73 (87) 99 04/20/19 09:00 Room Air Room Air 04/20/19 08:00 99.1 94 16 118/67 (84) 96 04/20/19 04:00 98.6 90 16 115/60 (78) 96 04/20/19 00:00 99.6 101 16 119/75 (90) 96 04/19/19 21:00 Room Air Room Air 04/19/19 20:00 98.0 97 16 126/71 (89) 96 04/19/19 16:00 98.3 96 18 123/71 (88) 99 Intake and Output 04/19/19 04/20/19 19:00 07:00 Intake Total 1181.332 ml 1007.471 ml Balance 1181.332 ml 1007.471 ml Intake Oral 900 ml 800 ml IV Total 281.332 ml 207.471 ml # Voids 1 1 # Bowel Movements 1 Laboratory Tests 04/20/19 04:01: Activated Partial Thromboplast Time 95H Height (Feet): 5 Height (Inches): 0.00 Weight (Pounds): 99 General Appearance: no apparent distress Objective no change El Clark MD Apr 20, 2019 13:44
[2019-04-20 16:00] VITALS: BP 127/74
[2019-04-20] MEDS ORDERED: Tubing IV Secondary IV ONE (16:53)
[2019-04-20] MEDS ORDERED: NS 275ml ONE (16:53)
--- NOTE | 2019-04-20 17:54 | Infectious Diseases Prog Note ---
Assessment/Plan Assessment/Plan A: Fever, SP Leukocytosis, -S-p- Probable Sepsis- 2ry to likely intraabdominal abscess- ?source (post-op complication vs account development specialist or sigmoid origin) -04/13 Sp Unusual fluid and phlegmon changes seen in the right adnexal region. Comparison with prior study of 03/27/2019 is difficult, due to lack of IV contrast administration currently. However, there appears to be likely decreased discrete fluid but is perhaps slightly increased phlegmon component. In addition, the appendix appears distended with fluid currently but intact. The significance of this finding and he of the surrounding abnormalities is uncertain. There is also a tiny 13 mm collection in the right perirectal region which is unchanged Persistent distention of the endometrium with fluid Slightly increased infiltration of the omental fat adjacent to the distal greater curvature of the stomach without discrete fluid collection. This may represent progressive postsurgical scarring. 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 Right adnexal region irregular fluid collection, corresponding to findings reported on recent CT scan. This is contiguous with an immediately adjacent segment of bowel.This likewise corresponds to findings on recent CT. Note that the fluid collection and extent are better delineated on the prior study. Nonvisualized left ovary -CT abd/p: Markedly thickened and fluid-filled endometrium. 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 Complex multilobulated fluid collection with areas of enhancing soft tissue in the right adnexal region. This measures 5.5 x 7 x 3.9 cm. There is also a second tiny collection adjacent to the distal rectum. One possible etiology is, given the above finding, a tubo-ovarian abscess, related to retrograde propagation of endometritis. A second possibility is that this represents acute diverticulitis with peridiverticular abscess, given the close relationship with the distal sigmoid colon. A third possibility is this represents an abscess related to infected pelvic fluid from the prior gastric perforation, as the previous exam did demonstrate a small amount of free fluid in the pelvis. Finally, given the presence of the appendix (which isprominent in caliber) at the edge of the collection, this could represent perforated acute distal appendicitis. However, this is deemed less likely. Evidence of interim repair of previously demonstrated perforated gastric ulcer. No evidence of contrast leakage. No abnormal fluid collection at the operative site. Colonic diverticulosis. Slight rim enhancement of the gallbladder. Slight pericholecystic fluid. However, the gallbladder is nondistended, so doubt significance of this. Bilateral basilar pulmonary parenchymal groundglass opacity, likely on the basis of mild pulmonary edema Perforated pre-pyloric gastric ulcer -03/15 s/p UGI series: Negative for postoperative leak -03/10 SP 03/10 SP Exploratory Laparotomy, Abdominal washout. Partial omentectomy. Shane patch for repair of perforated pre-pyloric ulcer. -03/10 CT abd/p: Free intraperitoneal gas. Etiology not completely certain, but gas within and extending from the anterior gastric antral wall is suspicious for a perforated gastric ulcer. Perforated descending colon diverticulitis also possible but deemed much less likely. Free intraperitoneal fluid, presumably related to the above. Fatty liver. Basilar pulmonary parenchymal groundglass opacities. This could indicate pulmonary edema, among other possibilities. Subcentimeter low-attenuation renal lesions, too small to characterize, most likely benign simple cyst. No further follow-up necessary. 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 Acute encephalopathy, Sp -CT head: Chronic and age-related changes. Negative for acute intracranial bleed or mass effect VDRF, post-op; extubated 03/12 DARRON, SP Dm2 HTN Plan: -Cont Cefepime # 32 and PO Flagyl #26 for intraabdominal abscess while in house (end date 05/01/19), upon DC will may change to Invanz to complete the course - Monitor weekly CBC, CMP - Would not recommend PO abx in this case lack of cultures and unclear nature of the infection. -03/22 SP Fluconazole #10 -03/15 SP Zosyn #6 -03/10 SP IV Vancomycin #1, Ancef x1 -Monitor CBC/CMP, temperatures -wound care per surgical team -aspiration precautions Subjective Allergies: Coded Allergies: No Known Allergies (Unverified , 03/10/19) Subjective afebrile Objective Vital Signs Last 24 Hour Vital Signs Date Time Temp Pulse Resp B/P (MAP) Pulse Ox O2 Delivery O2 Flow Rate FiO2 04/20/19 16:00 97.8 99 16 127/74 (91) 96 04/20/19 12:00 98.0 97 16 116/73 (87) 99 04/20/19 09:00 Room Air Room Air 04/20/19 08:00 99.1 94 16 118/67 (84) 96 04/20/19 04:00 98.6 90 16 115/60 (78) 96 04/20/19 00:00 99.6 101 16 119/75 (90) 96 04/19/19 21:00 Room Air Room Air 04/19/19 20:00 98.0 97 16 126/71 (89) 96 Height (Feet): 5 Height (Inches): 0.00 Weight (Pounds): 99 HEENT: atraumatic Respiratory/Chest: lungs clear Cardiovascular: regular rhythm Abdomen: no organomegaly Laboratory Tests Test 04/20/19 04:01 Activated Partial Thromboplast Time 95 SEC (23-33) H Current Medications Medications (Trade) Dose Ordered Sig/Shantelle Route PRN Reason Start Time Stop Time Status Last Admin Dose Admin Barium Sulfate (Readi-Cat 2) 450 ml PRN PRN ORAL Radiology Procedure 03/27/19 13:30 04/26/19 13:29 04/13/19 08:21 Cefepime HCl 1 gm/ Dextrose 55 ml @ 110 mls/hr DAILY IVPB 03/30/19 09:00 04/29/19 23:59 04/20/19 08:52 Dextrose (Dextrose 50%) 25 ml Q30M PRN IV Hypoglycemia 03/23/19 08:45 04/22/19 08:44 Dextrose (Dextrose 50%) 50 ml Q30M PRN IV Hypoglycemia 03/23/19 08:45 04/22/19 08:44 Heparin Sodium/ Dextrose 500 ml @ 18.861 mls/ hr ADJUST PER PROTOCOL IV 04/19/19 12:45 05/18/19 20:44 04/20/19 13:15 Insulin Aspart (NovoLOG) BEFORE MEALS AND HS SUBQ 03/23/19 11:30 04/22/19 11:29 04/20/19 11:52 Magnesium Hydroxide (Mom) 30 ml DAILYPRN PRN ORAL Constipation 04/01/19 17:30 05/01/19 17:29 04/01/19 17:42 Metronidazole (Flagyl) 500 mg Q8HR ORAL 03/23/19 14:00 04/29/19 23:59 04/20/19 13:14 Nateglinide (Starlix) 120 mg TIAC ORAL 03/23/19 11:30 04/22/19 11:29 04/20/19 17:03 Potassium Chloride (K-Dur) 40 meq BID ORAL 04/13/19 18:00 05/13/19 17:59 04/20/19 17:03 Smooth Weinstein MD Apr 20, 2019 17:54
--- NOTE | 2019-04-20 18:58 | Internal Med Progress Note ---
Subjective Date of Service: Apr 20, 2019 Physician Name Zen Paige Attending Physician Marcos Silva MD Current Medications Medications (Trade) Dose Ordered Sig/Shantelle Route PRN Reason Start Time Stop Time Status Last Admin Dose Admin Barium Sulfate (Readi-Cat 2) 450 ml PRN PRN ORAL Radiology Procedure 03/27/19 13:30 04/26/19 13:29 04/13/19 08:21 Cefepime HCl 1 gm/ Dextrose 55 ml @ 110 mls/hr DAILY IVPB 03/30/19 09:00 04/29/19 23:59 04/20/19 08:52 Dextrose (Dextrose 50%) 25 ml Q30M PRN IV Hypoglycemia 03/23/19 08:45 04/22/19 08:44 Dextrose (Dextrose 50%) 50 ml Q30M PRN IV Hypoglycemia 03/23/19 08:45 04/22/19 08:44 Heparin Sodium/ Dextrose 500 ml @ 18.861 mls/ hr ADJUST PER PROTOCOL IV 04/19/19 12:45 05/18/19 20:44 04/20/19 13:15 Insulin Aspart (NovoLOG) BEFORE MEALS AND HS SUBQ 03/23/19 11:30 04/22/19 11:29 04/20/19 11:52 Magnesium Hydroxide (Mom) 30 ml DAILYPRN PRN ORAL Constipation 04/01/19 17:30 05/01/19 17:29 04/01/19 17:42 Metronidazole (Flagyl) 500 mg Q8HR ORAL 03/23/19 14:00 04/29/19 23:59 04/20/19 13:14 Nateglinide (Starlix) 120 mg TIAC ORAL 03/23/19 11:30 04/22/19 11:29 04/20/19 17:03 Potassium Chloride (K-Dur) 40 meq BID ORAL 04/13/19 18:00 05/13/19 17:59 04/20/19 17:03 Allergies: Coded Allergies: No Known Allergies (Unverified , 03/10/19) ROS Limited/Unobtainable: No Constitutional: Reports: no symptoms HEENT: Reports: no symptoms Cardiovascular: Reports: no symptoms Respiratory: Reports: no symptoms Gastrointestinal/Abdominal: Reports: no symptoms Genitourinary: Reports: no symptoms Neurologic/Psychiatric: Reports: no symptoms Subjective 84 YO F admitted with abdominal pain. S/P exploratory laparotomy 03/10/19. Now intra-abdominal abscess. Cover for [facility] Med-Dr Silva. Objective Last Vital Signs Date Time Temp Pulse Resp B/P (MAP) Pulse Ox O2 Delivery O2 Flow Rate FiO2 04/20/19 16:00 97.8 99 16 127/74 (91) 96 04/20/19 09:00 Room Air Room Air 04/18/19 09:00 3.0 Laboratory Tests Test 04/20/19 04:01 Activated Partial Thromboplast Time 95 SEC (23-33) H Intake and Output 04/19/19 04/20/19 19:00 07:00 Intake Total 1181.332 ml 1007.471 ml Balance 1181.332 ml 1007.471 ml Intake Oral 900 ml 800 ml IV Total 281.332 ml 207.471 ml # Voids 1 1 # Bowel Movements 1 Objective PHYSICAL EXAMINATION: GENERAL: The patient is a well developed, well nourished female who is intubated and sedated. HEENT: Eyes, pupils equal and responsive to light and accommodation. Extraocular movements are intact. NECK: Supple without lymphadenopathy. CHEST: Nasc canula; Few diffuse wheezes bilaterally. Otherwise, without wheezes or rales. CARDIOVASCULAR: Regular rhythm rate. S1-S2 are normal without murmurs, rubs, or gallops. ABDOMEN: NGT; Soft, nontender with decreased bowel sounds. No evidence of hepatosplenomegaly. no rebound or guarding noted. EXTREMITIES: Negative for clubbing, cyanosis, edema. RECTAL/GENITAL: Not performed. NEUROLOGIC: Cranial nerves II through XII are grossly intact without focal deficits. Assessment/Plan Assessment/Plan ASSESSMENT: This is an 84-year-old female. 1. Perforated gastric ulcer 2. Abdominal pain. 3. Nausea with vomiting. 4. Diabetes type 2. 5. Hypertension. 6. Post Op fever-resolved 7. Leukocytosis 8. Intraabdominal abscess TREATMENT: 1. Perforated gastric ulcer. A General Surgery consultation has been obtained with Dr. Sheth. S/P exploratory laparotomy 03/10/19=perforated Pre pyloric ulcer. Tolerating regular diet; NGT discontinued per surgery 2. Diabetes type 2. NovoLog sliding scale has been instituted. 3. Hypertension. The patient is currently hypotensive. 4. Respiratory failure. S/P extubation 03/12/19. A Pulmonary consultation has been obtained with Dr. Bibiana Pennington. 5. Med/surg 6. ABX=Ertapenem for 6 weeks-end date 05/01/19 per ID 7. Surgical intervention on hold for intraabdominal abscess-see surgery note. Will require 6 weeks of ertapenem per ID 8. WBC now normal; Discharge planning 9. CT abdomen/pelvis results from 04/13/19=right adnexal phlegmon Zen Paige MD Apr 20, 2019 18:58
--- NOTE | 2019-04-20 19:14 | NUR ---
HAND-OFF: Report given to SARAI Haddad.
--- NOTE | 2019-04-20 19:15 | NUR ---
NURSE NOTES: Receive a report from SARAI Keller. Round is done. Pt is awake and alert, sitting in the chair. [place] speaking and family members are at bed side. No noted acute distress. Breathing is even and non labored. Denies any pain. On Heparin drip 21u/kg/hr- 18.86ml/hr infusing for DVT treatment. No bleeding signs noted. Call light within reach. Will continue to monitor.
--- NOTE | 2019-04-20 20:05 | Surgery Progress Note ---
Surgery Progress Note Subjective Procedure Performed ex lap with imelda patch, washout, omentectomy Symptoms: improved Additional Comments family at bedside. discussed care plan Objective Last 24 Hour Vital Signs Date Time Temp Pulse Resp B/P (MAP) Pulse Ox O2 Delivery O2 Flow Rate FiO2 04/20/19 16:00 97.8 99 16 127/74 (91) 96 04/20/19 12:00 98.0 97 16 116/73 (87) 99 04/20/19 09:00 Room Air Room Air 04/20/19 08:00 99.1 94 16 118/67 (84) 96 04/20/19 04:00 98.6 90 16 115/60 (78) 96 04/20/19 00:00 99.6 101 16 119/75 (90) 96 04/19/19 21:00 Room Air Room Air I&O Intake and Output 04/19/19 04/20/19 19:00 07:00 Intake Total 1181.332 ml 1007.471 ml Balance 1181.332 ml 1007.471 ml Intake Oral 900 ml 800 ml IV Total 281.332 ml 207.471 ml # Voids 1 1 # Bowel Movements 1 Wound: clean Cardiovascular: RSR Respiratory: clear Abdomen: soft, flat, non-tender, present bowel sounds Extremities: no cyanosis Laboratory Tests Test 04/20/19 04:01 Activated Partial Thromboplast Time 95 SEC (23-33) H Assessment Post-op Diagnosis perforated prepyloric gastric ulcer Plan Problems: (1) Peritonitis Assessment & Plan: 84F with perforated abdominal viscus likely gastric perforation based on CT findings s/p imelda patch recovering labs improved exam improved advance diet anna removed CT and US noted repeat CT noted Unusual fluid and phlegmon changes seen in the right adnexal region. Comparison with prior study of 03/27/2019 is difficult, due to lack of IV contrast administration currently. However, there appears to be likely decreased discrete fluid but is perhaps slightly increased phlegmon component. In addition, the appendix appears distended with fluid currently but intact. The significance of this finding and he of the surrounding abnormalities is uncertain. There is also a tiny 13 mm collection in the right perirectal region which is unchanged Persistent distention of the endometrium with fluid Slightly increased infiltration of the omental fat adjacent to the distal greater curvature of the stomach without discrete fluid collection. This may represent progressive postsurgical scarring. Other findings as noted, including degenerative spondylosis, left hip prosthesis , old healed left inferior pubic ramus fracture abd fluid collection possible abscess unable to drain via IR can consider surgical drainage but would be high risk and with morbidity and mortality risk given age and medical condition family aware plan for medical therapy with IV abx given stable improving with medical management labs improved exam benign will monitor thank you (2) Perforated abdominal viscus Mike Sheth Apr 20, 2019 20:05
[2019-04-20 20:30] VITALS: BP 121/75
[2019-04-21] VITALS: BP 119/73
--- NOTE | 2019-04-21 05:10 | NUR ---
NURSE NOTES: Receive a call from pharmacy about the result of aPTT as 85 sec. Will continue to the same dose of Heparin drip as 21unit/kg/hr-18.86ml/hr and will follow up aPTT @0400 on 04/22. Order noted and carried out. Will continue to follow up.
[2019-04-21 06:00] VITALS: BP 116/69
[2019-04-21] MEDS: NovoLOG Insulin Flexpen SUBQ SCH ×4 (06:11→20:39)
[2019-04-21] MEDS: metroNIDAZOLE 500mg tab ORAL SCH ×3 (06:12→21:06)
--- NOTE | 2019-04-21 07:28 | NUR ---
HAND-OFF: Report given to SARAI Huang.
--- NOTE | 2019-04-21 07:30 | NUR ---
NURSE NOTES: Pt requires monitoring due to Heparin IV use. Will be monitored for a/. e 2 possible bleeding. Safety education will be reinforced. Will encourage pt to use call light for assistance to bathroom needs.
[2019-04-21 08:00] VITALS: BP 119/82
[2019-04-21] MEDS: Cefepime HCl 1 GM in D5W 55 ML IVPB SCH (08:20)
--- NOTE | 2019-04-21 09:55 | Infectious Diseases Prog Note ---
Assessment/Plan Assessment/Plan A: Fever, SP Leukocytosis, -S-p- Probable Sepsis- 2ry to likely intraabdominal abscess- ?source (post-op complication vs sas bi developer or sigmoid origin) -04/13 Sp Unusual fluid and phlegmon changes seen in the right adnexal region. Comparison with prior study of 03/27/2019 is difficult, due to lack of IV contrast administration currently. However, there appears to be likely decreased discrete fluid but is perhaps slightly increased phlegmon component. In addition, the appendix appears distended with fluid currently but intact. The significance of this finding and he of the surrounding abnormalities is uncertain. There is also a tiny 13 mm collection in the right perirectal region which is unchanged Persistent distention of the endometrium with fluid Slightly increased infiltration of the omental fat adjacent to the distal greater curvature of the stomach without discrete fluid collection. This may represent progressive postsurgical scarring. 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 Right adnexal region irregular fluid collection, corresponding to findings reported on recent CT scan. This is contiguous with an immediately adjacent segment of bowel.This likewise corresponds to findings on recent CT. Note that the fluid collection and extent are better delineated on the prior study. Nonvisualized left ovary -CT abd/p: Markedly thickened and fluid-filled endometrium. 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 Complex multilobulated fluid collection with areas of enhancing soft tissue in the right adnexal region. This measures 5.5 x 7 x 3.9 cm. There is also a second tiny collection adjacent to the distal rectum. One possible etiology is, given the above finding, a tubo-ovarian abscess, related to retrograde propagation of endometritis. A second possibility is that this represents acute diverticulitis with peridiverticular abscess, given the close relationship with the distal sigmoid colon. A third possibility is this represents an abscess related to infected pelvic fluid from the prior gastric perforation, as the previous exam did demonstrate a small amount of free fluid in the pelvis. Finally, given the presence of the appendix (which isprominent in caliber) at the edge of the collection, this could represent perforated acute distal appendicitis. However, this is deemed less likely. Evidence of interim repair of previously demonstrated perforated gastric ulcer. No evidence of contrast leakage. No abnormal fluid collection at the operative site. Colonic diverticulosis. Slight rim enhancement of the gallbladder. Slight pericholecystic fluid. However, the gallbladder is nondistended, so doubt significance of this. Bilateral basilar pulmonary parenchymal groundglass opacity, likely on the basis of mild pulmonary edema Perforated pre-pyloric gastric ulcer -03/15 s/p UGI series: Negative for postoperative leak -03/10 SP 03/10 SP Exploratory Laparotomy, Abdominal washout. Partial omentectomy. Shane patch for repair of perforated pre-pyloric ulcer. -03/10 CT abd/p: Free intraperitoneal gas. Etiology not completely certain, but gas within and extending from the anterior gastric antral wall is suspicious for a perforated gastric ulcer. Perforated descending colon diverticulitis also possible but deemed much less likely. Free intraperitoneal fluid, presumably related to the above. Fatty liver. Basilar pulmonary parenchymal groundglass opacities. This could indicate pulmonary edema, among other possibilities. Subcentimeter low-attenuation renal lesions, too small to characterize, most likely benign simple cyst. No further follow-up necessary. 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 Acute encephalopathy, Sp -CT head: Chronic and age-related changes. Negative for acute intracranial bleed or mass effect VDRF, post-op; extubated 03/12 DARRON, SP Dm2 HTN Plan: -Cont Cefepime # 33 and PO Flagyl #27 for intraabdominal abscess while in house (end date 05/01/19), upon DC will may change to Invanz to complete the course - Monitor weekly CBC, CMP - Would not recommend PO abx in this case lack of cultures and unclear nature of the infection. -03/22 SP Fluconazole #10 -03/15 SP Zosyn #6 -03/10 SP IV Vancomycin #1, Ancef x1 -Monitor CBC/CMP, temperatures -wound care per surgical team -aspiration precautions Subjective Allergies: Coded Allergies: No Known Allergies (Unverified , 03/10/19) Subjective afebrile Objective Vital Signs Last 24 Hour Vital Signs Date Time Temp Pulse Resp B/P (MAP) Pulse Ox O2 Delivery O2 Flow Rate FiO2 04/21/19 09:00 Room Air Room Air 04/21/19 08:00 97.6 100 18 119/82 (94) 04/21/19 06:00 98.0 87 18 116/69 (85) 97 04/21/19 00:00 98.2 81 19 119/73 (88) 97 04/20/19 21:00 Room Air Room Air 04/20/19 20:30 98.0 85 19 121/75 (90) 98 04/20/19 16:00 97.8 99 16 127/74 (91) 96 04/20/19 12:00 98.0 97 16 116/73 (87) 99 Height (Feet): 5 Height (Inches): 0.00 Weight (Pounds): 101 HEENT: anicteric Respiratory/Chest: no respiratory distress Cardiovascular: regular rhythm Abdomen: soft, non tender Laboratory Tests Test 04/21/19 04:00 Activated Partial Thromboplast Time 85 SEC (23-33) H Current Medications Medications (Trade) Dose Ordered Sig/Shantelle Route PRN Reason Start Time Stop Time Status Last Admin Dose Admin Barium Sulfate (Readi-Cat 2) 450 ml PRN PRN ORAL Radiology Procedure 03/27/19 13:30 04/26/19 13:29 04/13/19 08:21 Cefepime HCl 1 gm/ Dextrose 55 ml @ 110 mls/hr DAILY IVPB 03/30/19 09:00 04/29/19 23:59 04/21/19 08:20 Dextrose (Dextrose 50%) 25 ml Q30M PRN IV Hypoglycemia 03/23/19 08:45 04/22/19 08:44 Dextrose (Dextrose 50%) 50 ml Q30M PRN IV Hypoglycemia 03/23/19 08:45 04/22/19 08:44 Heparin Sodium/ Dextrose 500 ml @ 18.861 mls/ hr ADJUST PER PROTOCOL IV 04/19/19 12:45 05/18/19 20:44 04/20/19 13:15 Insulin Aspart (NovoLOG) BEFORE MEALS AND HS SUBQ 03/23/19 11:30 04/22/19 11:29 04/20/19 20:35 Magnesium Hydroxide (Mom) 30 ml DAILYPRN PRN ORAL Constipation 04/01/19 17:30 05/01/19 17:29 04/01/19 17:42 Metronidazole (Flagyl) 500 mg Q8HR ORAL 03/23/19 14:00 04/29/19 23:59 04/21/19 06:12 Nateglinide (Starlix) 120 mg TIAC ORAL 03/23/19 11:30 04/22/19 11:29 04/21/19 06:12 Potassium Chloride (K-Dur) 40 meq BID ORAL 04/13/19 18:00 05/13/19 17:59 04/21/19 08:20 Smooth Weinstein MD Apr 21, 2019 09:55
--- NOTE | 2019-04-21 09:56 | NUR ---
NURSE NOTES: Dr Carvajal here to see pt current paln will be followed
--- NOTE | 2019-04-21 10:56 | Nephrology Progress Note ---
Assessment/Plan Problem List: (1) Perforated abdominal viscus (2) Hypokalemia (3) Hypomagnesemia (4) Diabetes mellitus (5) Anemia Assessment WBC rising Post lap on 03/10 Low K Low Phos Low Mag Anemia DM h/o HTN Plan add oral hypoglycemics for high BS DC IV change all to orals Mag and K and Phos IV as needed Anemia claudio Keep BP and BS in check per orders DC planning Subjective ROS Limited/Unobtainable: No Constitutional: Reports: malaise Objective Objective Last 24 Hour Vital Signs Date Time Temp Pulse Resp B/P (MAP) Pulse Ox O2 Delivery O2 Flow Rate FiO2 04/21/19 09:00 Room Air Room Air 04/21/19 08:00 97.6 100 18 119/82 (94) 04/21/19 06:00 98.0 87 18 116/69 (85) 97 04/21/19 00:00 98.2 81 19 119/73 (88) 97 04/20/19 21:00 Room Air Room Air 04/20/19 20:30 98.0 85 19 121/75 (90) 98 04/20/19 16:00 97.8 99 16 127/74 (91) 96 04/20/19 12:00 98.0 97 16 116/73 (87) 99 Intake and Output 04/20/19 04/21/19 18:59 06:59 Intake Total 622.471 ml 100 ml Balance 622.471 ml 100 ml Intake Oral 360 ml 100 ml IV Total 262.471 ml # Voids 3 4 # Bowel Movements 1 1 Laboratory Tests 04/21/19 04:00: Activated Partial Thromboplast Time 85H Height (Feet): 5 Height (Inches): 0.00 Weight (Pounds): 101 General Appearance: no apparent distress Objective no change El Clark MD Apr 21, 2019 10:56
[2019-04-21 12:00] VITALS: BP 123/74
[2019-04-21] MEDS: Heparin 25,000u/D5W 500ml 500 ML IV SCH ×2 (12:45→17:58)
--- NOTE | 2019-04-21 13:05 | Diagnostic Imaging Report ---
APPROVED REPORT CPT Code: 07083 Present Symptoms Lower Extremity Pain: Left Lower Extremity Edema: Left RIGHT LEG: Venous imaging reveals a patent deep venous system. There is no evidence of thrombus within the femoral, popliteal or tibial segments. The greater saphenous vein is also within normal limits. Doppler indicates normal spontaneous flow within these segments. LEFT LEG: Venous imaging reveals acute thrombus in the popliteal to the calf ( posterior, anterior and peroneal) veins. Imaging also reveals patency of the common femoral to the distal superficial femoral veins. Greater saphenous vein also within normal limits. SARAI Bishop was notified of the abnormal results at 11:55 hours.
--- NOTE | 2019-04-21 13:47 | NUR ---
NURSE NOTES: Pt up and walking with family. Currently sitting up in chair. Continues on Heparin drip no noted difficulties. No noted possible adverse effects related to antibiotic use reported. Care will be taken over by Jose C MOON
--- NOTE | 2019-04-21 13:49 | NUR ---
HAND-OFF: Report given to Jose C MOON.
--- NOTE | 2019-04-21 13:50 | NUR ---
NURSE NOTES: Received report from SARAI Griffin. Pt a/o x 4, on the chair. Son is at bedside. Denies any pain at this time. Heparin drip is on. Bed in lowest position, call light within reach. Will continue to monitor.
--- NOTE | 2019-04-21 15:03 | NUR ---
RD ASSESSMENT & RECOMMENDATIONS SEE CARE ACTIVITY FOR COMPLETE ASSESSMENT DAILY ESTIMATED NEEDS: Needs based on Surgery, DM, wt loss / 45.9kg 30-35 kcals/kg 7614-9315 total kcals 1-2 g protein/kg 46-92 g total protein 25-30 mL/kg 2509-4059 total fluid mLs NUTRITION DIAGNOSIS: * Altered GI function R/T perforated gastric ulcer as evidenced by s/p ex lap, abdominal washout, partial omentectomy, imelda patch for repair of perforated pre-pyloric ulcer, diet now advanced to regular. * Altered nutrition related lab values R/T diabetes,clinical condition as evidenced by elev BGs (177 226 332-> 74, 68), POC glu (110 130 114),A1C 10.2, urine glucose 4+, low phos-> now wnl, low mg-> not updated, elev triglycerides (300). CURRENT DIET:CCHO MED + LACTOSE FREE PO DIET RECOMMENDATIONS: BLAND, CCHO LOW DIET ADDITIONAL RECOMMENDATIONS: * Monitor BGs closely-> improved since adm * Calibrated bedscale wt on 04/1813=367.9lbs -> weekly wts given possible wt loss of 17lbs/ 14% in 39 days * Check f/up triglyceride (300 on 03/13) * F/up wound eval: rec add MVI x 1, Vit C 250mg QD + Dimas 1pkt BID * Snacks TID in b/w meals to prevent hypoglycemia * Trupti DC'ed per pt refusal
[2019-04-21 15:29] LABS: INR 1.1 (0.9-1.1)
[2019-04-21 16:00] VITALS: BP 117/74
--- NOTE | 2019-04-21 17:17 | Internal Med Progress Note ---
Subjective Date of Service: Apr 21, 2019 Physician Name Zen Paige Attending Physician Marcos Silva MD Current Medications Medications (Trade) Dose Ordered Sig/Shantelle Route PRN Reason Start Time Stop Time Status Last Admin Dose Admin Cefepime HCl 1 gm/ Dextrose 55 ml @ 110 mls/hr DAILY IVPB 03/30/19 09:00 04/29/19 23:59 04/21/19 08:20 Dextrose (Dextrose 50%) 25 ml Q30M PRN IV Hypoglycemia 03/23/19 08:45 04/22/19 08:44 Dextrose (Dextrose 50%) 50 ml Q30M PRN IV Hypoglycemia 03/23/19 08:45 04/22/19 08:44 Heparin Sodium/ Dextrose 500 ml @ 18.861 mls/ hr ADJUST PER PROTOCOL IV 04/19/19 12:45 05/18/19 20:44 04/20/19 13:15 Insulin Aspart (NovoLOG) BEFORE MEALS AND HS SUBQ 03/23/19 11:30 04/22/19 11:29 04/21/19 12:29 Magnesium Hydroxide (Mom) 30 ml DAILYPRN PRN ORAL Constipation 04/01/19 17:30 05/01/19 17:29 04/01/19 17:42 Metronidazole (Flagyl) 500 mg Q8HR ORAL 03/23/19 14:00 04/29/19 23:59 04/21/19 13:50 Nateglinide (Starlix) 120 mg TIAC ORAL 03/23/19 11:30 04/22/19 11:29 04/21/19 11:38 Potassium Chloride (K-Dur) 40 meq BID ORAL 04/13/19 18:00 05/13/19 17:59 04/21/19 08:20 Allergies: Coded Allergies: No Known Allergies (Unverified , 03/10/19) ROS Limited/Unobtainable: No Constitutional: Reports: no symptoms HEENT: Reports: no symptoms Cardiovascular: Reports: no symptoms Respiratory: Reports: no symptoms Gastrointestinal/Abdominal: Reports: no symptoms Genitourinary: Reports: no symptoms Neurologic/Psychiatric: Reports: no symptoms Subjective 84 YO F admitted with abdominal pain. S/P exploratory laparotomy 03/10/19. Now intra-abdominal abscess. Cover for Int Med-Dr Silva. Objective Last Vital Signs Date Time Temp Pulse Resp B/P (MAP) Pulse Ox O2 Delivery O2 Flow Rate FiO2 04/21/19 12:00 98.3 90 18 123/74 (90) 98 04/21/19 09:00 Room Air Room Air 04/18/19 09:00 3.0 Laboratory Tests Test 04/21/19 04:00 04/21/19 15:00 Activated Partial Thromboplast Time 85 SEC (23-33) H Prothrombin Time 12.0 SEC (9.30-11.50) H Prothromb Time International Ratio 1.1 (0.9-1.1) Intake and Output 04/20/19 04/21/19 19:00 07:00 Intake Total 603.610 ml 100 ml Balance 603.610 ml 100 ml Intake Oral 360 ml 100 ml IV Total 243.610 ml # Voids 3 4 # Bowel Movements 1 1 Objective PHYSICAL EXAMINATION: GENERAL: The patient is a well developed, well nourished female who is intubated and sedated. HEENT: Eyes, pupils equal and responsive to light and accommodation. Extraocular movements are intact. NECK: Supple without lymphadenopathy. CHEST: Nasc canula; Few diffuse wheezes bilaterally. Otherwise, without wheezes or rales. CARDIOVASCULAR: Regular rhythm rate. S1-S2 are normal without murmurs, rubs, or gallops. ABDOMEN: NGT; Soft, nontender with decreased bowel sounds. No evidence of hepatosplenomegaly. no rebound or guarding noted. EXTREMITIES: Negative for clubbing, cyanosis, edema. RECTAL/GENITAL: Not performed. NEUROLOGIC: Cranial nerves II through XII are grossly intact without focal deficits. Assessment/Plan Assessment/Plan ASSESSMENT: This is an 84-year-old female. 1. Perforated gastric ulcer 2. Abdominal pain. 3. Nausea with vomiting. 4. Diabetes type 2. 5. Hypertension. 6. Post Op fever-resolved 7. Leukocytosis 8. Intraabdominal abscess TREATMENT: 1. Perforated gastric ulcer. A General Surgery consultation has been obtained with Dr. Sheth. S/P exploratory laparotomy 03/10/19=perforated Pre pyloric ulcer. Tolerating regular diet; NGT discontinued per surgery 2. Diabetes type 2. NovoLog sliding scale has been instituted. 3. Hypertension. The patient is currently hypotensive. 4. Respiratory failure. S/P extubation 03/12/19. A Pulmonary consultation has been obtained with Dr. Bibiana Pennington. 5. Med/surg 6. ABX=Ertapenem for 6 weeks-end date 05/01/19 per ID 7. Surgical intervention on hold for intraabdominal abscess-see surgery note. Will require 6 weeks of ertapenem per ID 8. WBC now normal; Discharge planning 9. CT abdomen/pelvis results from 04/13/19=right adnexal phlegmon Zen Paige MD Apr 21, 2019 17:17
--- NOTE | 2019-04-21 19:24 | Surgery Progress Note ---
Surgery Progress Note Subjective Procedure Performed ex lap with imelda patch, washout, omentectomy Additional Comments walking in the halls comfortable labs noted Objective Last 24 Hour Vital Signs Date Time Temp Pulse Resp B/P (MAP) Pulse Ox O2 Delivery O2 Flow Rate FiO2 04/21/19 12:00 98.3 90 18 123/74 (90) 98 04/21/19 09:00 Room Air Room Air 04/21/19 08:00 97.6 100 18 119/82 (94) 04/21/19 06:00 98.0 87 18 116/69 (85) 97 04/21/19 00:00 98.2 81 19 119/73 (88) 97 04/20/19 21:00 Room Air Room Air 04/20/19 20:30 98.0 85 19 121/75 (90) 98 I&O Intake and Output 04/20/19 04/21/19 19:00 07:00 Intake Total 603.610 ml 100 ml Balance 603.610 ml 100 ml Intake Oral 360 ml 100 ml IV Total 243.610 ml # Voids 3 4 # Bowel Movements 1 1 Cardiovascular: RSR Respiratory: clear Abdomen: soft, flat, non-tender, present bowel sounds Extremities: no edema, no tenderness, no cyanosis Laboratory Tests Test 04/21/19 04:00 04/21/19 15:00 Activated Partial Thromboplast Time 85 SEC (23-33) H Prothrombin Time 12.0 SEC (9.30-11.50) H Prothromb Time International Ratio 1.1 (0.9-1.1) Assessment Post-op Diagnosis perforated prepyloric gastric ulcer Plan Problems: (1) Peritonitis Assessment & Plan: 84F with perforated abdominal viscus likely gastric perforation based on CT findings s/p imelda patch recovering labs improved exam improved advance diet anna removed CT and US noted repeat CT noted Unusual fluid and phlegmon changes seen in the right adnexal region. Comparison with prior study of 03/27/2019 is difficult, due to lack of IV contrast administration currently. However, there appears to be likely decreased discrete fluid but is perhaps slightly increased phlegmon component. In addition, the appendix appears distended with fluid currently but intact. The significance of this finding and he of the surrounding abnormalities is uncertain. There is also a tiny 13 mm collection in the right perirectal region which is unchanged Persistent distention of the endometrium with fluid Slightly increased infiltration of the omental fat adjacent to the distal greater curvature of the stomach without discrete fluid collection. This may represent progressive postsurgical scarring. Other findings as noted, including degenerative spondylosis, left hip prosthesis , old healed left inferior pubic ramus fracture abd fluid collection possible abscess unable to drain via IR can consider surgical drainage but would be high risk and with morbidity and mortality risk given age and medical condition family aware plan for medical therapy with IV abx given stable improving with medical management labs improved exam benign will monitor thank you (2) Perforated abdominal viscus Mkie Sheth Apr 21, 2019 19:23
--- NOTE | 2019-04-21 19:30 | NUR ---
NURSE NOTES: Received pt sitting in chair. Pt awake and alert, on room air. No c/o pain, no acute distress noted at this time. IV sites intact and patent. Heparin drip infusing for DVT. Bed locked, lowest position, alarm on, side rails up x 2, call light within reach. Will continue to monitor.
--- NOTE | 2019-04-21 19:42 | NUR ---
HAND-OFF: Report given to SARAI Ashraf. Pt is stable.
[2019-04-21 20:00] VITALS: BP 121/72
[2019-04-22] VITALS: BP 114/52
[2019-04-22 04:00] VITALS: BP 131/76
--- NOTE | 2019-04-22 05:20 | NUR ---
NURSE NOTES: Received call from pharmacy that aPTT 97. Heparin drip rate changed 19units/kg/hr. aPTT test will be @1130, 04/22/19.
[2019-04-22] MEDS: Heparin 25,000u/D5W 500ml 500 ML IV SCH ×2 (05:34→23:00)
[2019-04-22] MEDS: metroNIDAZOLE 500mg tab ORAL SCH ×3 (06:00→21:09)
[2019-04-22] MEDS: NovoLOG Insulin Flexpen SUBQ SCH (06:24)
--- NOTE | 2019-04-22 07:44 | NUR ---
HAND-OFF: Report given to SARAI Huang.
[2019-04-22 08:00] VITALS: BP 119/73
[2019-04-22] MEDS: Cefepime HCl 1 GM in D5W 55 ML IVPB SCH (09:37)
[2019-04-22 12:00] VITALS: BP 123/74
--- NOTE | 2019-04-22 12:56 | Surgery Progress Note ---
Surgery Progress Note Subjective Procedure Performed ex lap with imelda patch, washout, omentectomy Symptoms: improved, pain absent, tolerating diet, voiding well Objective Last 24 Hour Vital Signs Date Time Temp Pulse Resp B/P (MAP) Pulse Ox O2 Delivery O2 Flow Rate FiO2 04/22/19 08:00 97.3 88 18 119/73 (88) 98 04/22/19 04:00 98.8 97 20 131/76 (94) 97 04/22/19 00:00 99.5 89 19 114/52 (72) 98 04/21/19 20:23 Room Air Room Air 04/21/19 20:00 98.6 99 19 121/72 (88) 99 04/21/19 16:00 98.7 99 18 117/74 (88) 98 I&O Intake and Output 04/21/19 04/22/19 18:59 06:59 Intake Total 662.471 ml 306.813 ml Balance 662.471 ml 306.813 ml Intake Oral 400 ml 120 ml IV Total 262.471 ml 186.813 ml # Voids 3 3 # Bowel Movements 1 Dressing: dry Wound: clean Cardiovascular: RSR Respiratory: clear Abdomen: soft, flat, non-tender, present bowel sounds Extremities: no edema, no tenderness, no cyanosis Laboratory Tests Test 04/21/19 15:00 04/22/19 04:05 04/22/19 11:25 Prothrombin Time 12.0 SEC (9.30-11.50) H Prothromb Time International Ratio 1.1 (0.9-1.1) Activated Partial Thromboplast Time 97 SEC (23-33) H 73 SEC (23-33) H Assessment Post-op Diagnosis perforated prepyloric gastric ulcer Plan Problems: (1) Peritonitis Assessment & Plan: 84F with perforated abdominal viscus likely gastric perforation based on CT findings s/p imelda patch recovering labs improved exam improved advance diet anna removed CT and US noted repeat CT noted Unusual fluid and phlegmon changes seen in the right adnexal region. Comparison with prior study of 03/27/2019 is difficult, due to lack of IV contrast administration currently. However, there appears to be likely decreased discrete fluid but is perhaps slightly increased phlegmon component. In addition, the appendix appears distended with fluid currently but intact. The significance of this finding and he of the surrounding abnormalities is uncertain. There is also a tiny 13 mm collection in the right perirectal region which is unchanged Persistent distention of the endometrium with fluid Slightly increased infiltration of the omental fat adjacent to the distal greater curvature of the stomach without discrete fluid collection. This may represent progressive postsurgical scarring. Other findings as noted, including degenerative spondylosis, left hip prosthesis , old healed left inferior pubic ramus fracture abd fluid collection possible abscess unable to drain via IR can consider surgical drainage but would be high risk and with morbidity and mortality risk given age and medical condition family aware plan for medical therapy with IV abx given stable improving with medical management labs improved exam benign will monitor thank you (2) Perforated abdominal viscus Mike Sheth Apr 22, 2019 12:56
--- NOTE | 2019-04-22 15:26 | Infectious Diseases Prog Note ---
Assessment/Plan Assessment/Plan A: Fever, SP Leukocytosis, -S-p- Probable Sepsis- 2ry to likely intraabdominal abscess- ?source (post-op complication vs nurse obgyn or sigmoid origin) -04/13 Sp Unusual fluid and phlegmon changes seen in the right adnexal region. Comparison with prior study of 03/27/2019 is difficult, due to lack of IV contrast administration currently. However, there appears to be likely decreased discrete fluid but is perhaps slightly increased phlegmon component. In addition, the appendix appears distended with fluid currently but intact. The significance of this finding and he of the surrounding abnormalities is uncertain. There is also a tiny 13 mm collection in the right perirectal region which is unchanged Persistent distention of the endometrium with fluid Slightly increased infiltration of the omental fat adjacent to the distal greater curvature of the stomach without discrete fluid collection. This may represent progressive postsurgical scarring. 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 Right adnexal region irregular fluid collection, corresponding to findings reported on recent CT scan. This is contiguous with an immediately adjacent segment of bowel.This likewise corresponds to findings on recent CT. Note that the fluid collection and extent are better delineated on the prior study. Nonvisualized left ovary -CT abd/p: Markedly thickened and fluid-filled endometrium. 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 Complex multilobulated fluid collection with areas of enhancing soft tissue in the right adnexal region. This measures 5.5 x 7 x 3.9 cm. There is also a second tiny collection adjacent to the distal rectum. One possible etiology is, given the above finding, a tubo-ovarian abscess, related to retrograde propagation of endometritis. A second possibility is that this represents acute diverticulitis with peridiverticular abscess, given the close relationship with the distal sigmoid colon. A third possibility is this represents an abscess related to infected pelvic fluid from the prior gastric perforation, as the previous exam did demonstrate a small amount of free fluid in the pelvis. Finally, given the presence of the appendix (which isprominent in caliber) at the edge of the collection, this could represent perforated acute distal appendicitis. However, this is deemed less likely. Evidence of interim repair of previously demonstrated perforated gastric ulcer. No evidence of contrast leakage. No abnormal fluid collection at the operative site. Colonic diverticulosis. Slight rim enhancement of the gallbladder. Slight pericholecystic fluid. However, the gallbladder is nondistended, so doubt significance of this. Bilateral basilar pulmonary parenchymal groundglass opacity, likely on the basis of mild pulmonary edema Perforated pre-pyloric gastric ulcer -03/15 s/p UGI series: Negative for postoperative leak -03/10 SP 03/10 SP Exploratory Laparotomy, Abdominal washout. Partial omentectomy. Shane patch for repair of perforated pre-pyloric ulcer. -03/10 CT abd/p: Free intraperitoneal gas. Etiology not completely certain, but gas within and extending from the anterior gastric antral wall is suspicious for a perforated gastric ulcer. Perforated descending colon diverticulitis also possible but deemed much less likely. Free intraperitoneal fluid, presumably related to the above. Fatty liver. Basilar pulmonary parenchymal groundglass opacities. This could indicate pulmonary edema, among other possibilities. Subcentimeter low-attenuation renal lesions, too small to characterize, most likely benign simple cyst. No further follow-up necessary. 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 Acute encephalopathy, Sp -CT head: Chronic and age-related changes. Negative for acute intracranial bleed or mass effect VDRF, post-op; extubated 03/12 DARRON, SP Dm2 HTN Plan: -Cont Cefepime # 34 and PO Flagyl #28 for intraabdominal abscess while in house (end date 05/01/19), upon DC will may change to Invanz to complete the course - Monitor weekly CBC, CMP - Would not recommend PO abx in this case lack of cultures and unclear nature of the infection. -03/22 SP Fluconazole #10 -03/15 SP Zosyn #6 -03/10 SP IV Vancomycin #1, Ancef x1 -Monitor CBC/CMP, temperatures -wound care per surgical team -aspiration precautions Subjective Allergies: Coded Allergies: No Known Allergies (Unverified , 03/10/19) Subjective afebrile Objective Vital Signs Last 24 Hour Vital Signs Date Time Temp Pulse Resp B/P (MAP) Pulse Ox O2 Delivery O2 Flow Rate FiO2 04/22/19 12:00 97.5 82 18 123/74 (90) 98 04/22/19 09:00 Room Air Room Air 04/22/19 08:00 97.3 88 18 119/73 (88) 98 04/22/19 04:00 98.8 97 20 131/76 (94) 97 04/22/19 00:00 99.5 89 19 114/52 (72) 98 04/21/19 20:23 Room Air Room Air 04/21/19 20:00 98.6 99 19 121/72 (88) 99 04/21/19 16:00 98.7 99 18 117/74 (88) 98 Height (Feet): 5 Height (Inches): 0.00 Weight (Pounds): 101 HEENT: anicteric Respiratory/Chest: no accessory muscle use Cardiovascular: regularly irregular Abdomen: no organomegaly Laboratory Tests Test 04/22/19 04:05 04/22/19 11:25 Activated Partial Thromboplast Time 97 SEC (23-33) H 73 SEC (23-33) H Current Medications Medications (Trade) Dose Ordered Sig/Shantelle Route PRN Reason Start Time Stop Time Status Last Admin Dose Admin Cefepime HCl 1 gm/ Dextrose 55 ml @ 110 mls/hr DAILY IVPB 03/30/19 09:00 04/29/19 23:59 04/22/19 09:37 Heparin Sodium/ Dextrose 500 ml @ 17.064 mls/ hr ADJUST PER PROTOCOL IV 04/22/19 05:30 05/18/19 20:44 04/22/19 05:34 Magnesium Hydroxide (Mom) 30 ml DAILYPRN PRN ORAL Constipation 04/01/19 17:30 05/01/19 17:29 04/01/19 17:42 Metronidazole (Flagyl) 500 mg Q8HR ORAL 03/23/19 14:00 04/29/19 23:59 04/22/19 14:31 Potassium Chloride (K-Dur) 40 meq BID ORAL 04/13/19 18:00 05/13/19 17:59 04/22/19 09:36 Smooth Weinstein MD Apr 22, 2019 15:26
--- NOTE | 2019-04-22 15:36 | Nephrology Progress Note ---
Assessment/Plan Problem List: (1) Perforated abdominal viscus (2) Hypokalemia (3) Hypomagnesemia (4) Diabetes mellitus (5) Anemia Assessment WBC rising Post lap on 03/10 Low K Low Phos Low Mag Anemia DM h/o HTN Plan add oral hypoglycemics for high BS DC IV change all to orals Mag and K and Phos IV as needed Anemia claudio Keep BP and BS in check per orders DC planning Subjective ROS Limited/Unobtainable: No Constitutional: Reports: malaise Objective Objective Last 24 Hour Vital Signs Date Time Temp Pulse Resp B/P (MAP) Pulse Ox O2 Delivery O2 Flow Rate FiO2 04/22/19 12:00 97.5 82 18 123/74 (90) 98 04/22/19 09:00 Room Air Room Air 04/22/19 08:00 97.3 88 18 119/73 (88) 98 04/22/19 04:00 98.8 97 20 131/76 (94) 97 04/22/19 00:00 99.5 89 19 114/52 (72) 98 04/21/19 20:23 Room Air Room Air 04/21/19 20:00 98.6 99 19 121/72 (88) 99 04/21/19 16:00 98.7 99 18 117/74 (88) 98 Intake and Output 04/21/19 04/22/19 18:59 06:59 Intake Total 662.471 ml 306.813 ml Balance 662.471 ml 306.813 ml Intake Oral 400 ml 120 ml IV Total 262.471 ml 186.813 ml # Voids 3 3 # Bowel Movements 1 Laboratory Tests 04/22/19 04:05: Activated Partial Thromboplast Time 97H 04/22/19 11:25: Activated Partial Thromboplast Time 73H Height (Feet): 5 Height (Inches): 0.00 Weight (Pounds): 101 General Appearance: no apparent distress Objective no change El Clark MD Apr 22, 2019 15:36
[2019-04-22 16:00] VITALS: BP 121/24
--- NOTE | 2019-04-22 17:41 | Internal Med Progress Note ---
Subjective Physician Name Marcos Silva Attending Physician Marcos Silva MD Current Medications Medications (Trade) Dose Ordered Sig/Shantelle Route PRN Reason Start Time Stop Time Status Last Admin Dose Admin Cefepime HCl 1 gm/ Dextrose 55 ml @ 110 mls/hr DAILY IVPB 03/30/19 09:00 04/29/19 23:59 04/22/19 09:37 Heparin Sodium/ Dextrose 500 ml @ 17.064 mls/ hr ADJUST PER PROTOCOL IV 04/22/19 05:30 05/18/19 20:44 04/22/19 05:34 Magnesium Hydroxide (Mom) 30 ml DAILYPRN PRN ORAL Constipation 04/01/19 17:30 05/01/19 17:29 04/01/19 17:42 Metronidazole (Flagyl) 500 mg Q8HR ORAL 03/23/19 14:00 04/29/19 23:59 04/22/19 14:31 Potassium Chloride (K-Dur) 40 meq BID ORAL 04/13/19 18:00 05/13/19 17:59 04/22/19 09:36 Allergies: Coded Allergies: No Known Allergies (Unverified , 03/10/19) Subjective awake, alert, responsive, sitting up in the chair, denies any abdominal pain. Objective Last Vital Signs Date Time Temp Pulse Resp B/P (MAP) Pulse Ox O2 Delivery O2 Flow Rate FiO2 04/22/19 12:00 97.5 82 18 123/74 (90) 98 04/22/19 09:00 Room Air Room Air 04/18/19 09:00 3.0 Laboratory Tests Test 04/22/19 04:05 04/22/19 11:25 Activated Partial Thromboplast Time 97 SEC (23-33) H 73 SEC (23-33) H Intake and Output 04/21/19 04/22/19 18:59 06:59 Intake Total 662.471 ml 306.813 ml Balance 662.471 ml 306.813 ml Intake Oral 400 ml 120 ml IV Total 262.471 ml 186.813 ml # Voids 3 3 # Bowel Movements 1 Objective General: No acute distress, awake and alert HEENT: NCAT, sclera anicteric, PERRL, EOMI. Neck: Supple, no significant jugular venous distention, Lungs: clear to auscultation bilaterally, no Wheeze or Rales. Heart: Regular rate and rhythm, normal S1/S2, no murmur Abdomen: soft, not tender, Not distended. midline surgical incision intact. Extremities: No Cyanosis , clubbing , Trace left ankle edema. Neuro: A&O x 3, Able to move all extremities Skin: warm, no rash. Assessment/Plan Assessment/Plan ASSESSMENT: This is an 84-year-old female. 1. Perforated abdominal viscus S/P Exploratory laparotomy, Partial omentectomy, and Shane patch for repair of perforated pre-pyloric ulcer (03/10/2019). 2. Acute respiratory Failure. 3. Nausea with vomiting. 4. Diabetes type 2. 5. Hypertension. 6. Acute thrombus in the popliteal to the calf ( posterior, anterior and peroneal) veins. TREATMENT: 1. Perforated abdominal viscus. A General Surgery consultation has been obtained with Dr. Sheth. S/P Exploratory laparotomy, Partial omentectomy, and Shane patch for repair of perforated pre-pyloric ulcer (03/10/2019). 2. Diabetes type 2. NovoLog sliding scale has been instituted. 3. Hypertension. The patient is currently hypotensive. 4. Respiratory failure. The patient is currently intubated in the intensive care unit. A Pulmonary consultation has been obtained with Dr. Bibiana Pennington. Abx: Cefepime and Flagyl Heparin Marcos Santamaria MD Apr 22, 2019 17:41
--- NOTE | 2019-04-22 19:30 | NUR ---
NURSE NOTES: Receive a report from SARAI Huang. Round is done. Pt is sitting on a chair and family members are bed side. No noted acute distress. Denies any pain on abdomen or left leg. On Heparin drip for DVT, 19 U/Kg/Hr as 17.06ml/hr without bleeding signs. Both IV sites are clear without infiltration. Provide fall precautions all the time. Call light within reach. Will continue to monitor.
--- NOTE | 2019-04-22 20:07 | NUR ---
CASE MANAGEMENT: REVIEW SI: PERFORATED VISCOUS EXPLORATORY LAPAROTOMY, REPAIR VISCUS 03/10 T 99.5 HR 89 RR 19 BP 114/52 SAT 97% ROOM AIR IS: CEFEPIME IV QD FLAGYL PO Q8HR PROTONIX PO Q12HR K-DUR PO BID MED/SURG STATUS DCP: PATIENT IS FROM HOME
[2019-04-22 20:30] VITALS: BP 123/71
--- NOTE | 2019-04-22 20:30 | NUR ---
NURSE NOTES: Pt is ambulating with family members. Will continue to monitor.
[2019-04-23 00:50] VITALS: BP 128/73
[2019-04-23 05:30] VITALS: BP 125/73
[2019-04-23] MEDS: metroNIDAZOLE 500mg tab ORAL SCH ×3 (06:24→22:34)
--- NOTE | 2019-04-23 06:25 | NUR ---
NURSE NOTES: Receive PTT result as 70 sec. Keep the same unit and will repeat PTT @0400 tomorrow. Will continue to follow up.
--- NOTE | 2019-04-23 08:00 | NUR ---
HAND-OFF: Report given to SARAI Payton.
[2019-04-23 08:45] VITALS: BP 110/73
[2019-04-23] MEDS: Cefepime HCl 1 GM in D5W 55 ML IVPB SCH (09:16)
--- NOTE | 2019-04-23 10:25 | NUR ---
NURSE NOTES: during shift change patient seating and eating breakfast on Heparin drip, running 19unitkg or 17.0mlhr. patient updated weight was not calculated informed pharmacist Ana, and she stated it is not a big difference on weight and no need to change the rate. skin intact, LE swelling noted, call light with in reach will continue to monitor.
--- NOTE | 2019-04-23 10:39 | Nephrology Progress Note ---
Assessment/Plan Problem List: (1) Perforated abdominal viscus (2) Hypokalemia (3) Hypomagnesemia (4) Diabetes mellitus (5) Anemia Assessment WBC rising Post lap on 03/10 Low K Low Phos Low Mag Anemia DM h/o HTN Plan add oral hypoglycemics for high BS DC IV change all to orals Mag and K and Phos IV as needed Anemia claudio Keep BP and BS in check per orders DC planning Subjective ROS Limited/Unobtainable: No Objective Objective Last 24 Hour Vital Signs Date Time Temp Pulse Resp B/P (MAP) Pulse Ox O2 Delivery O2 Flow Rate FiO2 04/23/19 08:45 98.3 93 18 110/73 (85) 99 04/23/19 05:30 97.5 88 18 125/73 (90) 98 04/23/19 00:50 98.3 98 18 128/73 (91) 99 04/22/19 21:00 Room Air Room Air 04/22/19 20:30 97.6 98 18 123/71 (88) 100 04/22/19 16:00 98.0 92 18 121/24 (56) 04/22/19 12:00 97.5 82 18 123/74 (90) 98 Intake and Output 04/22/19 04/23/19 19:00 07:00 Intake Total 1004.768 ml 200 ml Balance 1004.768 ml 200 ml Intake Oral 800 ml 200 ml IV Total 204.768 ml # Voids 6 4 # Bowel Movements 1 Laboratory Tests 04/22/19 11:25: Activated Partial Thromboplast Time 73H 04/23/19 04:10: Activated Partial Thromboplast Time 70H Height (Feet): 5 Height (Inches): 0.00 Weight (Pounds): 101 General Appearance: no apparent distress Objective no change El Clark MD Apr 23, 2019 10:39
[2019-04-23 12:00] VITALS: BP 127/72
--- NOTE | 2019-04-23 15:22 | NUR ---
NURSE NOTES: Patient ambulated in the unit x2 with RN tolerated well.
[2019-04-23] MEDS ORDERED: NS 275ml ONE (15:28)
[2019-04-23 16:24] VITALS: BP 121/69
--- NOTE | 2019-04-23 16:53 | NUR ---
CASE MANAGEMENT: REVIEW 04/23/2019 SI:PERFORATED VISCUS. T 97.9 HR 81 RR 18 B/P 121/69 SATS 96% ON RA NO LABS TODAY IS: ZOSYN IV Q8H HEPARIN DRIP PER PROTOCOL FLAGYL IV Q8H CEFEPIME IV QD MED/SURG DCP: PATIENT TO BE DISCHARGED TO HOME ONCE MEDICALLY CLEARED.
--- NOTE | 2019-04-23 17:43 | Internal Med Progress Note ---
Subjective Date of Service: Apr 23, 2019 Physician Name Zen Paige Attending Physician Marcos Silva MD Current Medications Medications (Trade) Dose Ordered Sig/Shantelle Route PRN Reason Start Time Stop Time Status Last Admin Dose Admin Cefepime HCl 1 gm/ Dextrose 55 ml @ 110 mls/hr DAILY IVPB 03/30/19 09:00 04/29/19 23:59 04/23/19 09:16 Heparin Sodium/ Dextrose 500 ml @ 17.064 mls/ hr ADJUST PER PROTOCOL IV 04/22/19 05:30 05/18/19 20:44 04/22/19 23:00 Magnesium Hydroxide (Mom) 30 ml DAILYPRN PRN ORAL Constipation 04/01/19 17:30 05/01/19 17:29 04/01/19 17:42 Metronidazole (Flagyl) 500 mg Q8HR ORAL 03/23/19 14:00 04/29/19 23:59 04/23/19 14:45 Allergies: Coded Allergies: No Known Allergies (Unverified , 03/10/19) ROS Limited/Unobtainable: No Constitutional: Reports: no symptoms HEENT: Reports: no symptoms Cardiovascular: Reports: no symptoms Respiratory: Reports: no symptoms Gastrointestinal/Abdominal: Reports: no symptoms Genitourinary: Reports: no symptoms Neurologic/Psychiatric: Reports: no symptoms Subjective 84 YO F admitted with abdominal pain. S/P exploratory laparotomy 03/10/19. Now intra-abdominal abscess. Cover for Int Med-Dr Silva. Objective Last Vital Signs Date Time Temp Pulse Resp B/P (MAP) Pulse Ox O2 Delivery O2 Flow Rate FiO2 04/23/19 16:24 97.9 81 18 121/69 (86) 81 04/23/19 09:00 Room Air Room Air 04/18/19 09:00 3.0 Laboratory Tests Test 04/23/19 04:10 Activated Partial Thromboplast Time 70 SEC (23-33) H Intake and Output 04/22/19 04/23/19 18:59 06:59 Intake Total 1004.768 ml 200 ml Balance 1004.768 ml 200 ml Intake Oral 800 ml 200 ml IV Total 204.768 ml # Voids 6 4 # Bowel Movements 1 Objective PHYSICAL EXAMINATION: GENERAL: The patient is a well developed, well nourished female who is intubated and sedated. HEENT: Eyes, pupils equal and responsive to light and accommodation. Extraocular movements are intact. NECK: Supple without lymphadenopathy. CHEST: Nasc canula; Few diffuse wheezes bilaterally. Otherwise, without wheezes or rales. CARDIOVASCULAR: Regular rhythm rate. S1-S2 are normal without murmurs, rubs, or gallops. ABDOMEN: NGT; Soft, nontender with decreased bowel sounds. No evidence of hepatosplenomegaly. no rebound or guarding noted. EXTREMITIES: Negative for clubbing, cyanosis, edema. RECTAL/GENITAL: Not performed. NEUROLOGIC: Cranial nerves II through XII are grossly intact without focal deficits. Assessment/Plan Assessment/Plan ASSESSMENT: This is an 84-year-old female. 1. Perforated gastric ulcer 2. Abdominal pain. 3. Nausea with vomiting. 4. Diabetes type 2. 5. Hypertension. 6. Post Op fever-resolved 7. Leukocytosis 8. Intraabdominal abscess TREATMENT: 1. Perforated gastric ulcer. A General Surgery consultation has been obtained with Dr. Sheth. S/P exploratory laparotomy 03/10/19=perforated Pre pyloric ulcer. Tolerating regular diet; NGT discontinued per surgery 2. Diabetes type 2. NovoLog sliding scale has been instituted. 3. Hypertension. The patient is currently hypotensive. 4. Respiratory failure. S/P extubation 03/12/19. A Pulmonary consultation has been obtained with Dr. Bibiana Pennington. 5. Med/surg 6. ABX=Ertapenem for 6 weeks-end date 05/01/19 per ID 7. Surgical intervention on hold for intraabdominal abscess-see surgery note. Will require 6 weeks of ertapenem per ID 8. WBC now normal; Discharge planning 9. CT abdomen/pelvis results from 04/13/19=right adnexal phlegmon Zen Paige MD Apr 23, 2019 17:43
--- NOTE | 2019-04-23 19:34 | NUR ---
HAND-OFF: Report given to Moe Arreguin RN patient stable condition with out no distress seating on chair with son at bedside.
[2019-04-23 20:00] VITALS: BP 138/76
[2019-04-24] VITALS: BP 119/64
--- NOTE | 2019-04-24 03:26 | NUR ---
NURSES NOTE: Patient lying in bed, A/O x4, able to let needs be known, son at bedside. VS wnl, no signs or symptoms of distress noted. IV is intact and patent. Heparin drip IV running at 19 units/kg/hr. All due meds given. Bed at lowest level, call light within reach, pt will continue to be monitored.
[2019-04-24 04:00] VITALS: BP 126/63
[2019-04-24] MEDS: Heparin 25,000u/D5W 500ml 500 ML IV SCH (04:30)
[2019-04-24 04:33] LABS: BASOPHILS % (AUTO) 2.7 % (0.0-2.0); EOSINOPHILS % (AUTO) 3.1 % (0.0-3.0); HEMATOCRIT 29.7 % (37.0-47.0); HEMOGLOBIN 9.5 G/DL (12.0-16.0); LYMPHOCYTES % (AUTO) 46.8 % (20.0-45.0); MEAN CORPUSCULAR VOLUME 82 FL (80-99); MONOCYTES % (AUTO) 15.6 % (1.0-10.0); NEUTROPHILS % (AUTO) 31.9 % (45.0-75.0); PLATELET COUNT 189 K/UL (150-450); RED CELL DISTRIBUTION WIDTH 16.1 % (11.6-14.8); WHITE BLOOD COUNT 3.7 K/UL (4.8-10.8)
--- NOTE | 2019-04-24 04:45 | NUR ---
NURSES NOTE: Pt had ptt result that was 73 w/n normal range. No changes made to dosing. Next ptt scheduled for 0450 04/25.
[2019-04-24 04:50] LABS: ALANINE AMINOTRANSFERASE 15 U/L (12-78); ALBUMIN 2.6 G/DL (3.4-5.0); ALBUMIN/GLOBULIN RATIO 0.8 (1.0-2.7); ALKALINE PHOSPHATASE 90 U/L (46-116); ANION GAP 7 mmol/L (5-15); ASPARTATE AMINO TRANSFERASE 25 U/L (15-37); BILIRUBIN,TOTAL 0.3 MG/DL (0.2-1.0); BLOOD UREA NITROGEN 12 mg/dL (7-18); CALCIUM 8.9 MG/DL (8.5-10.1); CARBON DIOXIDE 26 MMOL/L (21-32); CHLORIDE 108 MMOL/L (98-107); CREATININE 0.6 MG/DL (0.55-1.30); PHOSPHORUS 4.1 MG/DL (2.5-4.9); POTASSIUM 3.5 MMOL/L (3.5-5.1); SODIUM 141 MMOL/L (136-145)
[2019-04-24] MEDS: metroNIDAZOLE 500mg tab ORAL SCH ×3 (06:37→21:38)
--- NOTE | 2019-04-24 07:30 | NUR ---
NURSE NOTES: Patient is sitting up in chair awake and able to verbalize needs. Stable. Denies pain or SOB. Patient encouraged to use call light for assistance, verbalized understanding. Patient is running heparin drip as ordered. Patient sitting in chair eating breakfast with call light within reach. Will continue to monitor.
--- NOTE | 2019-04-24 07:50 | NUR ---
HAND-OFF: Report given to Alta. Patient in stable condition.
[2019-04-24 08:00] VITALS: BP 120/70
[2019-04-24] MEDS: Cefepime HCl 1 GM in D5W 55 ML IVPB SCH (08:14)
--- NOTE | 2019-04-24 09:39 | NUR ---
CASE MANAGEMENT: REVIEW 04/24/2019 SI:PERFORATED VISCUS. T 98 HR 96 RR 18 B/P 120/70 SATS 97% ON RA NO LABS TODAY IS: ZOSYN IV Q8H HEPARIN DRIP PER PROTOCOL FLAGYL IV Q8H CEFEPIME IV QD MED/SURG DCP: PATIENT TO BE DISCHARGED TO HOME ONCE MEDICALLY CLEARED.
--- NOTE | 2019-04-24 11:47 | Nephrology Progress Note ---
Assessment/Plan Problem List: (1) Perforated abdominal viscus (2) Hypokalemia (3) Hypomagnesemia (4) Diabetes mellitus (5) Anemia Assessment WBC rising Post lap on 03/10 Low K Low Phos Low Mag Anemia DM h/o HTN Plan add oral hypoglycemics for high BS DC IV change all to orals Mag and K and Phos IV as needed Anemia claudio Keep BP and BS in check per orders DC planning Subjective ROS Limited/Unobtainable: No Objective Objective Last 24 Hour Vital Signs Date Time Temp Pulse Resp B/P (MAP) Pulse Ox O2 Delivery O2 Flow Rate FiO2 04/24/19 09:00 Room Air Room Air 04/24/19 08:00 98.0 96 18 120/70 (87) 97 04/24/19 04:00 99.1 83 18 126/63 (84) 98 04/24/19 00:00 99.4 84 18 119/64 (82) 98 04/23/19 21:00 Room Air Room Air 04/23/19 20:00 97.8 102 18 138/76 (96) 94 04/23/19 16:24 97.9 81 18 121/69 (86) 81 04/23/19 12:00 98.5 90 18 127/72 (90) 96 Intake and Output 04/23/19 04/24/19 19:00 07:00 Intake Total 800 ml 274.128 ml Balance 800 ml 274.128 ml Intake Oral 800 ml 240 ml IV Total 34.128 ml # Voids 4 1 # Bowel Movements 1 Laboratory Tests 04/24/19 03:55: White Blood Count 3.7L, Red Blood Count 3.60L, Hemoglobin 9.5L, Hematocrit 29.7L , Mean Corpuscular Volume 82, Mean Corpuscular Hemoglobin 26.3L, Mean Corpuscular Hemoglobin Concent 32.0, Red Cell Distribution Width 16.1H, Platelet Count 189, Mean Platelet Volume 7.1, Neutrophils (%) (Auto) 31.9L, Lymphocytes (%) (Auto) 46.8H, Monocytes (%) (Auto) 15.6H, Eosinophils (%) (Auto ) 3.1H, Basophils (%) (Auto) 2.7H, Activated Partial Thromboplast Time 73H, Sodium Level 141, Potassium Level 3.5, Chloride Level 108H, Carbon Dioxide Level 26, Anion Gap 7, Blood Urea Nitrogen 12, Creatinine 0.6, Estimat Glomerular Filtration Rate , Glucose Level 121H, Calcium Level 8.9, Phosphorus Level 4.1, Magnesium Level 1.2L, Total Bilirubin 0.3, Aspartate Amino Transf ( AST/SGOT) 25, Alanine Aminotransferase (ALT/SGPT) 15, Alkaline Phosphatase 90, C -Reactive Protein, Quantitative < 0.4, Pro-B-Type Natriuretic Peptide 155H, Total Protein 5.8L, Albumin 2.6L, Globulin 3.2, Albumin/Globulin Ratio 0.8L Height (Feet): 5 Height (Inches): 0.00 Weight (Pounds): 101 General Appearance: no apparent distress Objective no change El Clark MD Apr 24, 2019 11:47
[2019-04-24 12:00] VITALS: BP 126/79
--- NOTE | 2019-04-24 12:04 | Infectious Diseases Prog Note ---
Assessment/Plan Assessment/Plan Fever, SP Leukocytosis, -S-p- Probable Sepsis- 2ry to likely intraabdominal abscess- ?source (post-op complication vs marketing summer intern or sigmoid origin) -04/13 Sp Unusual fluid and phlegmon changes seen in the right adnexal region. Comparison with prior study of 03/27/2019 is difficult, due to lack of IV contrast administration currently. However, there appears to be likely decreased discrete fluid but is perhaps slightly increased phlegmon component. In addition, the appendix appears distended with fluid currently but intact. The significance of this finding and he of the surrounding abnormalities is uncertain. There is also a tiny 13 mm collection in the right perirectal region which is unchanged Persistent distention of the endometrium with fluid Slightly increased infiltration of the omental fat adjacent to the distal greater curvature of the stomach without discrete fluid collection. This may represent progressive postsurgical scarring. 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 Right adnexal region irregular fluid collection, corresponding to findings reported on recent CT scan. This is contiguous with an immediately adjacent segment of bowel.This likewise corresponds to findings on recent CT. Note that the fluid collection and extent are better delineated on the prior study. Nonvisualized left ovary -CT abd/p: Markedly thickened and fluid-filled endometrium. 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 Complex multilobulated fluid collection with areas of enhancing soft tissue in the right adnexal region. This measures 5.5 x 7 x 3.9 cm. There is also a second tiny collection adjacent to the distal rectum. One possible etiology is, given the above finding, a tubo-ovarian abscess, related to retrograde propagation of endometritis. A second possibility is that this represents acute diverticulitis with peridiverticular abscess, given the close relationship with the distal sigmoid colon. A third possibility is this represents an abscess related to infected pelvic fluid from the prior gastric perforation, as the previous exam did demonstrate a small amount of free fluid in the pelvis. Finally, given the presence of the appendix (which isprominent in caliber) at the edge of the collection, this could represent perforated acute distal appendicitis. However, this is deemed less likely. Evidence of interim repair of previously demonstrated perforated gastric ulcer. No evidence of contrast leakage. No abnormal fluid collection at the operative site. Colonic diverticulosis. Slight rim enhancement of the gallbladder. Slight pericholecystic fluid. However, the gallbladder is nondistended, so doubt significance of this. Bilateral basilar pulmonary parenchymal groundglass opacity, likely on the basis of mild pulmonary edema Perforated pre-pyloric gastric ulcer -03/15 s/p UGI series: Negative for postoperative leak -03/10 SP 03/10 SP Exploratory Laparotomy, Abdominal washout. Partial omentectomy. Shane patch for repair of perforated pre-pyloric ulcer. -03/10 CT abd/p: Free intraperitoneal gas. Etiology not completely certain, but gas within and extending from the anterior gastric antral wall is suspicious for a perforated gastric ulcer. Perforated descending colon diverticulitis also possible but deemed much less likely. Free intraperitoneal fluid, presumably related to the above. Fatty liver. Basilar pulmonary parenchymal groundglass opacities. This could indicate pulmonary edema, among other possibilities. Subcentimeter low-attenuation renal lesions, too small to characterize, most likely benign simple cyst. No further follow-up necessary. 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 Acute encephalopathy, Sp -CT head: Chronic and age-related changes. Negative for acute intracranial bleed or mass effect VDRF, post-op; extubated 03/12 DARRON, SP Dm2 HTN Plan: -Cont Cefepime # 35 and PO Flagyl #29 for intraabdominal abscess while in house (end date 05/01/19), upon DC will may change to Invanz to complete the course - Monitor weekly CBC, CMP - Would not recommend PO abx in this case lack of cultures and unclear nature of the infection. -03/22 SP Fluconazole #10 -03/15 SP Zosyn #6 -03/10 SP IV Vancomycin #1, Ancef x1 -Monitor CBC/CMP, temperatures -wound care per surgical team -aspiration precautions Subjective Allergies: Coded Allergies: No Known Allergies (Unverified , 03/10/19) Subjective Afebrile No Leukcoytosis Objective Vital Signs Last 24 Hour Vital Signs Date Time Temp Pulse Resp B/P (MAP) Pulse Ox O2 Delivery O2 Flow Rate FiO2 04/24/19 09:00 Room Air Room Air 04/24/19 08:00 98.0 96 18 120/70 (87) 97 04/24/19 04:00 99.1 83 18 126/63 (84) 98 04/24/19 00:00 99.4 84 18 119/64 (82) 98 04/23/19 21:00 Room Air Room Air 04/23/19 20:00 97.8 102 18 138/76 (96) 94 04/23/19 16:24 97.9 81 18 121/69 (86) 81 Height (Feet): 5 Height (Inches): 0.00 Weight (Pounds): 101 Objective General: NAD Head: NCAT, MMM, EOMI Lungs: CTAB, No W Heart: regular rate and rhythm, S1, S2 Abdomen: soft, NT, ND Laboratory Tests Test 04/24/19 03:55 White Blood Count 3.7 K/UL (4.8-10.8) L Red Blood Count 3.60 M/UL (4.20-5.40) L Hemoglobin 9.5 G/DL (12.0-16.0) L Hematocrit 29.7 % (37.0-47.0) L Mean Corpuscular Volume 82 FL (80-99) Mean Corpuscular Hemoglobin 26.3 PG (27.0-31.0) L Mean Corpuscular Hemoglobin Concent 32.0 G/DL (32.0-36.0) Red Cell Distribution Width 16.1 % (11.6-14.8) H Platelet Count 189 K/UL (150-450) Mean Platelet Volume 7.1 FL (6.5-10.1) Neutrophils (%) (Auto) 31.9 % (45.0-75.0) L Lymphocytes (%) (Auto) 46.8 % (20.0-45.0) H Monocytes (%) (Auto) 15.6 % (1.0-10.0) H Eosinophils (%) (Auto) 3.1 % (0.0-3.0) H Basophils (%) (Auto) 2.7 % (0.0-2.0) H Activated Partial Thromboplast Time 73 SEC (23-33) H Sodium Level 141 MMOL/L (136-145) Potassium Level 3.5 MMOL/L (3.5-5.1) Chloride Level 108 MMOL/L (98-107) H Carbon Dioxide Level 26 MMOL/L (21-32) Anion Gap 7 mmol/L (5-15) Blood Urea Nitrogen 12 mg/dL (7-18) Creatinine 0.6 MG/DL (0.55-1.30) Estimat Glomerular Filtration Rate mL/min (>60) Glucose Level 121 MG/DL (74-106) H Calcium Level 8.9 MG/DL (8.5-10.1) Phosphorus Level 4.1 MG/DL (2.5-4.9) Magnesium Level 1.2 MG/DL (1.8-2.4) L Total Bilirubin 0.3 MG/DL (0.2-1.0) Aspartate Amino Transf (AST/SGOT) 25 U/L (15-37) Alanine Aminotransferase (ALT/SGPT) 15 U/L (12-78) Alkaline Phosphatase 90 U/L (46-116) C-Reactive Protein, Quantitative < 0.4 mg/dL (0.00-0.90) Pro-B-Type Natriuretic Peptide 155 pg/mL (0-125) H Total Protein 5.8 G/DL (6.4-8.2) L Albumin 2.6 G/DL (3.4-5.0) L Globulin 3.2 g/dL Albumin/Globulin Ratio 0.8 (1.0-2.7) L Current Medications Medications (Trade) Dose Ordered Sig/Shantelle Route PRN Reason Start Time Stop Time Status Last Admin Dose Admin Cefepime HCl 1 gm/ Dextrose 55 ml @ 110 mls/hr DAILY IVPB 03/30/19 09:00 04/29/19 23:59 04/24/19 08:14 Heparin Sodium/ Dextrose 500 ml @ 17.064 mls/ hr ADJUST PER PROTOCOL IV 04/22/19 05:30 05/18/19 20:44 04/24/19 04:30 Magnesium Hydroxide (Mom) 30 ml DAILYPRN PRN ORAL Constipation 04/01/19 17:30 05/01/19 17:29 04/01/19 17:42 Magnesium Sulfate 100 ml @ 100 mls/hr Q1H IVPB 04/24/19 12:00 04/24/19 15:59 04/24/19 11:30 Metronidazole (Flagyl) 500 mg Q8HR ORAL 03/23/19 14:00 04/29/19 23:59 04/24/19 06:37 Potassium Chloride (K-Dur) 40 meq DAILY ORAL 04/24/19 11:00 05/24/19 10:59 04/24/19 11:30 Andrea Quiroz MD Apr 24, 2019 12:04
--- NOTE | 2019-04-24 15:18 | Internal Med Progress Note ---
Subjective Date of Service: Apr 24, 2019 Physician Name Zen Paige Attending Physician Marcos Silva MD Current Medications Medications (Trade) Dose Ordered Sig/Shantelle Route PRN Reason Start Time Stop Time Status Last Admin Dose Admin Cefepime HCl 1 gm/ Dextrose 55 ml @ 110 mls/hr DAILY IVPB 03/30/19 09:00 04/29/19 23:59 04/24/19 08:14 Heparin Sodium/ Dextrose 500 ml @ 17.064 mls/ hr ADJUST PER PROTOCOL IV 04/22/19 05:30 05/18/19 20:44 04/24/19 04:30 Magnesium Hydroxide (Mom) 30 ml DAILYPRN PRN ORAL Constipation 04/01/19 17:30 05/01/19 17:29 04/01/19 17:42 Magnesium Sulfate 100 ml @ 100 mls/hr Q1H IVPB 04/24/19 12:00 04/24/19 15:59 04/24/19 13:53 Metronidazole (Flagyl) 500 mg Q8HR ORAL 03/23/19 14:00 04/29/19 23:59 04/24/19 13:53 Potassium Chloride (K-Dur) 40 meq DAILY ORAL 04/24/19 11:00 05/24/19 10:59 04/24/19 11:30 Allergies: Coded Allergies: No Known Allergies (Unverified , 03/10/19) ROS Limited/Unobtainable: No Constitutional: Reports: no symptoms HEENT: Reports: no symptoms Cardiovascular: Reports: no symptoms Respiratory: Reports: no symptoms Gastrointestinal/Abdominal: Reports: no symptoms Genitourinary: Reports: no symptoms Neurologic/Psychiatric: Reports: no symptoms Subjective 84 YO F admitted with abdominal pain. S/P exploratory laparotomy 03/10/19. Now intra-abdominal abscess. Cover for Int Med-Dr Silva. Objective Last Vital Signs Date Time Temp Pulse Resp B/P (MAP) Pulse Ox O2 Delivery O2 Flow Rate FiO2 04/24/19 12:00 98.7 88 18 126/79 (95) 99 04/24/19 09:00 Room Air Room Air 04/18/19 09:00 3.0 Laboratory Tests Test 04/24/19 03:55 White Blood Count 3.7 K/UL (4.8-10.8) L Red Blood Count 3.60 M/UL (4.20-5.40) L Hemoglobin 9.5 G/DL (12.0-16.0) L Hematocrit 29.7 % (37.0-47.0) L Mean Corpuscular Volume 82 FL (80-99) Mean Corpuscular Hemoglobin 26.3 PG (27.0-31.0) L Mean Corpuscular Hemoglobin Concent 32.0 G/DL (32.0-36.0) Red Cell Distribution Width 16.1 % (11.6-14.8) H Platelet Count 189 K/UL (150-450) Mean Platelet Volume 7.1 FL (6.5-10.1) Neutrophils (%) (Auto) 31.9 % (45.0-75.0) L Lymphocytes (%) (Auto) 46.8 % (20.0-45.0) H Monocytes (%) (Auto) 15.6 % (1.0-10.0) H Eosinophils (%) (Auto) 3.1 % (0.0-3.0) H Basophils (%) (Auto) 2.7 % (0.0-2.0) H Activated Partial Thromboplast Time 73 SEC (23-33) H Sodium Level 141 MMOL/L (136-145) Potassium Level 3.5 MMOL/L (3.5-5.1) Chloride Level 108 MMOL/L (98-107) H Carbon Dioxide Level 26 MMOL/L (21-32) Anion Gap 7 mmol/L (5-15) Blood Urea Nitrogen 12 mg/dL (7-18) Creatinine 0.6 MG/DL (0.55-1.30) Estimat Glomerular Filtration Rate mL/min (>60) Glucose Level 121 MG/DL (74-106) H Calcium Level 8.9 MG/DL (8.5-10.1) Phosphorus Level 4.1 MG/DL (2.5-4.9) Magnesium Level 1.2 MG/DL (1.8-2.4) L Total Bilirubin 0.3 MG/DL (0.2-1.0) Aspartate Amino Transf (AST/SGOT) 25 U/L (15-37) Alanine Aminotransferase (ALT/SGPT) 15 U/L (12-78) Alkaline Phosphatase 90 U/L (46-116) C-Reactive Protein, Quantitative < 0.4 mg/dL (0.00-0.90) Pro-B-Type Natriuretic Peptide 155 pg/mL (0-125) H Total Protein 5.8 G/DL (6.4-8.2) L Albumin 2.6 G/DL (3.4-5.0) L Globulin 3.2 g/dL Albumin/Globulin Ratio 0.8 (1.0-2.7) L Intake and Output 04/23/19 04/24/19 19:00 07:00 Intake Total 800 ml 274.128 ml Balance 800 ml 274.128 ml Intake Oral 800 ml 240 ml IV Total 34.128 ml # Voids 4 1 # Bowel Movements 1 Objective PHYSICAL EXAMINATION: GENERAL: The patient is a well developed, well nourished female who is intubated and sedated. HEENT: Eyes, pupils equal and responsive to light and accommodation. Extraocular movements are intact. NECK: Supple without lymphadenopathy. CHEST: Nasc canula; Few diffuse wheezes bilaterally. Otherwise, without wheezes or rales. CARDIOVASCULAR: Regular rhythm rate. S1-S2 are normal without murmurs, rubs, or gallops. ABDOMEN: NGT; Soft, nontender with decreased bowel sounds. No evidence of hepatosplenomegaly. no rebound or guarding noted. EXTREMITIES: Negative for clubbing, cyanosis, edema. RECTAL/GENITAL: Not performed. NEUROLOGIC: Cranial nerves II through XII are grossly intact without focal deficits. Assessment/Plan Assessment/Plan ASSESSMENT: This is an 84-year-old female. 1. Perforated gastric ulcer 2. Abdominal pain. 3. Nausea with vomiting. 4. Diabetes type 2. 5. Hypertension. 6. Post Op fever-resolved 7. Leukocytosis 8. Intraabdominal abscess TREATMENT: 1. Perforated gastric ulcer. A General Surgery consultation has been obtained with Dr. Sheth. S/P exploratory laparotomy 03/10/19=perforated Pre pyloric ulcer. Tolerating regular diet; NGT discontinued per surgery 2. Diabetes type 2. NovoLog sliding scale has been instituted. 3. Hypertension. The patient is currently hypotensive. 4. Respiratory failure. S/P extubation 03/12/19. A Pulmonary consultation has been obtained with Dr. Bibiana Pennington. 5. Med/surg 6. ABX=Ertapenem for 6 weeks-end date 05/01/19 per ID 7. Surgical intervention on hold for intraabdominal abscess-see surgery note. Will require 6 weeks of ertapenem per ID 8. WBC now normal; Discharge planning 9. CT abdomen/pelvis results from 04/13/19=right adnexal phlegmon Zen Paige MD Apr 24, 2019 15:18
[2019-04-24 16:00] VITALS: BP 121/51
--- NOTE | 2019-04-24 16:04 | Surgery Progress Note ---
Surgery Progress Note Subjective Procedure Performed ex lap with imelda patch, washout, omentectomy Symptoms: tolerating diet, voiding well, passing flatus, BM Additional Comments cody cute events comfortable Objective Last 24 Hour Vital Signs Date Time Temp Pulse Resp B/P (MAP) Pulse Ox O2 Delivery O2 Flow Rate FiO2 04/24/19 12:00 98.7 88 18 126/79 (95) 99 04/24/19 09:00 Room Air Room Air 04/24/19 08:00 98.0 96 18 120/70 (87) 97 04/24/19 04:00 99.1 83 18 126/63 (84) 98 04/24/19 00:00 99.4 84 18 119/64 (82) 98 04/23/19 21:00 Room Air Room Air 04/23/19 20:00 97.8 102 18 138/76 (96) 94 04/23/19 16:24 97.9 81 18 121/69 (86) 81 I&O Intake and Output 04/23/19 04/24/19 18:59 06:59 Intake Total 800 ml 274.128 ml Balance 800 ml 274.128 ml Intake Oral 800 ml 240 ml IV Total 34.128 ml # Voids 4 1 # Bowel Movements 1 Dressing: dry Wound: clean Cardiovascular: RSR Respiratory: clear Abdomen: soft, non-tender, present bowel sounds Extremities: no edema, no tenderness Laboratory Tests Test 04/24/19 03:55 White Blood Count 3.7 K/UL (4.8-10.8) L Red Blood Count 3.60 M/UL (4.20-5.40) L Hemoglobin 9.5 G/DL (12.0-16.0) L Hematocrit 29.7 % (37.0-47.0) L Mean Corpuscular Volume 82 FL (80-99) Mean Corpuscular Hemoglobin 26.3 PG (27.0-31.0) L Mean Corpuscular Hemoglobin Concent 32.0 G/DL (32.0-36.0) Red Cell Distribution Width 16.1 % (11.6-14.8) H Platelet Count 189 K/UL (150-450) Mean Platelet Volume 7.1 FL (6.5-10.1) Neutrophils (%) (Auto) 31.9 % (45.0-75.0) L Lymphocytes (%) (Auto) 46.8 % (20.0-45.0) H Monocytes (%) (Auto) 15.6 % (1.0-10.0) H Eosinophils (%) (Auto) 3.1 % (0.0-3.0) H Basophils (%) (Auto) 2.7 % (0.0-2.0) H Activated Partial Thromboplast Time 73 SEC (23-33) H Sodium Level 141 MMOL/L (136-145) Potassium Level 3.5 MMOL/L (3.5-5.1) Chloride Level 108 MMOL/L (98-107) H Carbon Dioxide Level 26 MMOL/L (21-32) Anion Gap 7 mmol/L (5-15) Blood Urea Nitrogen 12 mg/dL (7-18) Creatinine 0.6 MG/DL (0.55-1.30) Estimat Glomerular Filtration Rate mL/min (>60) Glucose Level 121 MG/DL (74-106) H Calcium Level 8.9 MG/DL (8.5-10.1) Phosphorus Level 4.1 MG/DL (2.5-4.9) Magnesium Level 1.2 MG/DL (1.8-2.4) L Total Bilirubin 0.3 MG/DL (0.2-1.0) Aspartate Amino Transf (AST/SGOT) 25 U/L (15-37) Alanine Aminotransferase (ALT/SGPT) 15 U/L (12-78) Alkaline Phosphatase 90 U/L (46-116) C-Reactive Protein, Quantitative < 0.4 mg/dL (0.00-0.90) Pro-B-Type Natriuretic Peptide 155 pg/mL (0-125) H Total Protein 5.8 G/DL (6.4-8.2) L Albumin 2.6 G/DL (3.4-5.0) L Globulin 3.2 g/dL Albumin/Globulin Ratio 0.8 (1.0-2.7) L Assessment Post-op Diagnosis perforated prepyloric gastric ulcer Plan Problems: (1) Peritonitis Assessment & Plan: 84F with perforated abdominal viscus likely gastric perforation based on CT findings s/p imelda patch recovering labs improved exam improved advance diet anna removed CT and US noted repeat CT noted Unusual fluid and phlegmon changes seen in the right adnexal region. Comparison with prior study of 03/27/2019 is difficult, due to lack of IV contrast administration currently. However, there appears to be likely decreased discrete fluid but is perhaps slightly increased phlegmon component. In addition, the appendix appears distended with fluid currently but intact. The significance of this finding and he of the surrounding abnormalities is uncertain. There is also a tiny 13 mm collection in the right perirectal region which is unchanged Persistent distention of the endometrium with fluid Slightly increased infiltration of the omental fat adjacent to the distal greater curvature of the stomach without discrete fluid collection. This may represent progressive postsurgical scarring. Other findings as noted, including degenerative spondylosis, left hip prosthesis , old healed left inferior pubic ramus fracture abd fluid collection possible abscess unable to drain via IR can consider surgical drainage but would be high risk and with morbidity and mortality risk given age and medical condition family aware plan for medical therapy with IV abx given stable improving with medical management labs improved exam benign will monitor thank you (2) Perforated abdominal viscus Mike Sheth Apr 24, 2019 16:04
--- NOTE | 2019-04-24 19:17 | NUR ---
HAND-OFF: Report given to Moe MOON. Patient is stable.
--- NOTE | 2019-04-24 19:30 | NUR ---
NURSE NOTES: Received report from SARAI Francisco and rounds made. Received pt sitting in chair, AOx4, denies any pain, no distress noted. Heparin drip infusing 19units/kg/hr or 17.064ml/hr. IV left forearm patent and intact. Families at bedside. Call light within reach. Will continue to monitor.
[2019-04-24 20:00] VITALS: BP 108/51
[2019-04-25 04:00] VITALS: BP 130/70
--- NOTE | 2019-04-25 04:50 | NUR ---
NURSE NOTES: PTT drawn by archery equipment hay sorter.
[2019-04-25] MEDS: Heparin 25,000u/D5W 500ml 500 ML IV SCH ×2 (05:30→07:05)
[2019-04-25] MEDS: metroNIDAZOLE 500mg tab ORAL SCH ×3 (05:45→20:51)
[2019-04-25 06:07] LABS: BASOPHILS % (AUTO) 1.7 % (0.0-2.0); EOSINOPHILS % (AUTO) 2.5 % (0.0-3.0); HEMOGLOBIN 10.2 G/DL (12.0-16.0); LYMPHOCYTES % (AUTO) 46.3 % (20.0-45.0); MEAN CORPUSCULAR VOLUME 83 FL (80-99); NEUTROPHILS % (AUTO) 33.4 % (45.0-75.0); PLATELET COUNT 203 K/UL (150-450); RED BLOOD COUNT 3.87 M/UL (4.20-5.40); WHITE BLOOD COUNT 4.1 K/UL (4.8-10.8)
[2019-04-25 06:23] LABS: ALANINE AMINOTRANSFERASE 13 U/L (12-78); ALBUMIN 2.7 G/DL (3.4-5.0); ALBUMIN/GLOBULIN RATIO 0.8 (1.0-2.7); ALKALINE PHOSPHATASE 94 U/L (46-116); ANION GAP 9 mmol/L (5-15); ASPARTATE AMINO TRANSFERASE 27 U/L (15-37); BILIRUBIN,TOTAL 0.3 MG/DL (0.2-1.0); BLOOD UREA NITROGEN 10 mg/dL (7-18); CALCIUM 8.8 MG/DL (8.5-10.1); CARBON DIOXIDE 23 MMOL/L (21-32); CHLORIDE 108 MMOL/L (98-107); CREATININE 0.6 MG/DL (0.55-1.30); SODIUM 140 MMOL/L (136-145)
[2019-04-25] MEDS ORDERED: Heparin 5000 units/ml inj IV SCH (07:00)
--- NOTE | 2019-04-25 07:12 | NUR ---
NURSE NOTES: New heparin drip rate 19.53ml/ hr or 21 units /kg/hr. Next PTT draw at 1312. Endorse to SARAI Woodall.
--- NOTE | 2019-04-25 07:41 | NUR ---
HAND-OFF: Report given to SARAI Woodall. Pt in stable condition.
--- NOTE | 2019-04-25 07:45 | NUR ---
NURSE NOTES: Received report from SARAI Rosa. Rounding done with outgoing nurse. Pt a/o x 4, in chair, having a breakfast. Lt FA IV access is patent with heparin drip. Bed in lowest position, call light within reach. Will continue to monitor.
[2019-04-25 08:00] VITALS: BP 113/61
[2019-04-25] MEDS: Cefepime HCl 1 GM in D5W 55 ML IVPB SCH (08:42)
[2019-04-25 09:03] LABS: PHOSPHORUS 2.9 MG/DL (2.5-4.9)
--- NOTE | 2019-04-25 10:05 | Nephrology Progress Note ---
Assessment/Plan Problem List: (1) Perforated abdominal viscus (2) Hypokalemia (3) Hypomagnesemia (4) Diabetes mellitus (5) Anemia Assessment WBC rising Post lap on 03/10 Low K Low Phos Low Mag Anemia DM h/o HTN Plan add oral hypoglycemics for high BS DC IV change all to orals Mag and K and Phos IV as needed Anemia claudio Keep BP and BS in check per orders DC planning Subjective ROS Limited/Unobtainable: No Constitutional: Reports: malaise Objective Objective Last 24 Hour Vital Signs Date Time Temp Pulse Resp B/P (MAP) Pulse Ox O2 Delivery O2 Flow Rate FiO2 04/25/19 09:00 Room Air Room Air 04/25/19 08:00 99.5 84 18 113/61 (78) 98 04/25/19 04:00 98.6 92 18 130/70 (90) 95 04/24/19 21:00 Room Air Room Air 04/24/19 20:00 97.8 91 18 108/51 (70) 91 04/24/19 16:00 98.3 85 18 121/51 (74) 98 04/24/19 12:00 98.7 88 18 126/79 (95) 99 Intake and Output 04/24/19 04/25/19 19:00 07:00 Intake Total 34.128 ml 287.704 ml Balance 34.128 ml 287.704 ml Intake Oral 100 ml IV Total 34.128 ml 187.704 ml # Voids 3 Laboratory Tests 04/25/19 04:50: White Blood Count 4.1L, Red Blood Count 3.87L, Hemoglobin 10.2L, Hematocrit 32.0L, Mean Corpuscular Volume 83, Mean Corpuscular Hemoglobin 26.3L, Mean Corpuscular Hemoglobin Concent 31.8L, Red Cell Distribution Width 16.0H, Platelet Count 203, Mean Platelet Volume 7.2, Neutrophils (%) (Auto) 33.4L, Lymphocytes (%) (Auto) 46.3H, Monocytes (%) (Auto) 16.0H, Eosinophils (%) (Auto ) 2.5, Basophils (%) (Auto) 1.7, Erythrocyte Sedimentation Rate 82H, Activated Partial Thromboplast Time 62H, Sodium Level 140, Potassium Level 4.0, Chloride Level 108H, Carbon Dioxide Level 23, Anion Gap 9, Blood Urea Nitrogen 10, Creatinine 0.6, Estimat Glomerular Filtration Rate , Glucose Level 126H, Calcium Level 8.8, Phosphorus Level 2.9, Magnesium Level 1.8, Total Bilirubin 0.3, Aspartate Amino Transf (AST/SGOT) 27, Alanine Aminotransferase (ALT/SGPT) 13, Alkaline Phosphatase 94, C-Reactive Protein, Quantitative 0.5, Total Protein 6.3L, Albumin 2.7L, Globulin 3.6, Albumin/Globulin Ratio 0.8L Height (Feet): 5 Height (Inches): 0.00 Weight (Pounds): 101 General Appearance: no apparent distress Objective no change El Clark MD Apr 25, 2019 10:05
--- NOTE | 2019-04-25 10:52 | Surgery Progress Note ---
Surgery Progress Note Subjective Procedure Performed ex lap with imelda patch, washout, omentectomy Additional Comments No acute events. Resting comfortably. Tolerating diet. No complaints. Labs noted and improved. ESR and CRP trending down. Objective Last 24 Hour Vital Signs Date Time Temp Pulse Resp B/P (MAP) Pulse Ox O2 Delivery O2 Flow Rate FiO2 04/25/19 09:00 Room Air Room Air 04/25/19 08:00 99.5 84 18 113/61 (78) 98 04/25/19 04:00 98.6 92 18 130/70 (90) 95 04/24/19 21:00 Room Air Room Air 04/24/19 20:00 97.8 91 18 108/51 (70) 91 04/24/19 16:00 98.3 85 18 121/51 (74) 98 04/24/19 12:00 98.7 88 18 126/79 (95) 99 I&O Intake and Output 04/24/19 04/25/19 19:00 07:00 Intake Total 34.128 ml 287.704 ml Balance 34.128 ml 287.704 ml Intake Oral 100 ml IV Total 34.128 ml 187.704 ml # Voids 3 Dressing: dry Wound: clean Cardiovascular: RSR Respiratory: clear Abdomen: soft, non-tender, present bowel sounds, non-distended Extremities: no edema, no tenderness, no cyanosis Laboratory Tests Test 04/25/19 04:50 White Blood Count 4.1 K/UL (4.8-10.8) L Red Blood Count 3.87 M/UL (4.20-5.40) L Hemoglobin 10.2 G/DL (12.0-16.0) L Hematocrit 32.0 % (37.0-47.0) L Mean Corpuscular Volume 83 FL (80-99) Mean Corpuscular Hemoglobin 26.3 PG (27.0-31.0) L Mean Corpuscular Hemoglobin Concent 31.8 G/DL (32.0-36.0) L Red Cell Distribution Width 16.0 % (11.6-14.8) H Platelet Count 203 K/UL (150-450) Mean Platelet Volume 7.2 FL (6.5-10.1) Neutrophils (%) (Auto) 33.4 % (45.0-75.0) L Lymphocytes (%) (Auto) 46.3 % (20.0-45.0) H Monocytes (%) (Auto) 16.0 % (1.0-10.0) H Eosinophils (%) (Auto) 2.5 % (0.0-3.0) Basophils (%) (Auto) 1.7 % (0.0-2.0) Erythrocyte Sedimentation Rate 82 MM/HR (0-30) H Activated Partial Thromboplast Time 62 SEC (23-33) H Sodium Level 140 MMOL/L (136-145) Potassium Level 4.0 MMOL/L (3.5-5.1) Chloride Level 108 MMOL/L (98-107) H Carbon Dioxide Level 23 MMOL/L (21-32) Anion Gap 9 mmol/L (5-15) Blood Urea Nitrogen 10 mg/dL (7-18) Creatinine 0.6 MG/DL (0.55-1.30) Estimat Glomerular Filtration Rate mL/min (>60) Glucose Level 126 MG/DL (74-106) H Calcium Level 8.8 MG/DL (8.5-10.1) Phosphorus Level 2.9 MG/DL (2.5-4.9) Magnesium Level 1.8 MG/DL (1.8-2.4) Total Bilirubin 0.3 MG/DL (0.2-1.0) Aspartate Amino Transf (AST/SGOT) 27 U/L (15-37) Alanine Aminotransferase (ALT/SGPT) 13 U/L (12-78) Alkaline Phosphatase 94 U/L (46-116) C-Reactive Protein, Quantitative 0.5 mg/dL (0.00-0.90) Total Protein 6.3 G/DL (6.4-8.2) L Albumin 2.7 G/DL (3.4-5.0) L Globulin 3.6 g/dL Albumin/Globulin Ratio 0.8 (1.0-2.7) L Assessment Post-op Diagnosis perforated prepyloric gastric ulcer Plan Problems: (1) Peritonitis Assessment & Plan: 84F with perforated abdominal viscus likely gastric perforation based on CT findings s/p imelda patch recovering labs improved exam improved advance diet anna removed CT and US noted repeat CT noted Unusual fluid and phlegmon changes seen in the right adnexal region. Comparison with prior study of 03/27/2019 is difficult, due to lack of IV contrast administration currently. However, there appears to be likely decreased discrete fluid but is perhaps slightly increased phlegmon component. In addition, the appendix appears distended with fluid currently but intact. The significance of this finding and he of the surrounding abnormalities is uncertain. There is also a tiny 13 mm collection in the right perirectal region which is unchanged Persistent distention of the endometrium with fluid Slightly increased infiltration of the omental fat adjacent to the distal greater curvature of the stomach without discrete fluid collection. This may represent progressive postsurgical scarring. Other findings as noted, including degenerative spondylosis, left hip prosthesis , old healed left inferior pubic ramus fracture abd fluid collection possible abscess unable to drain via IR can consider surgical drainage but would be high risk and with morbidity and mortality risk given age and medical condition family aware plan for medical therapy with IV abx given stable improving with medical management labs improved exam benign will monitor thank you (2) Perforated abdominal viscus Mike Sheth Apr 25, 2019 10:52
[2019-04-25 12:00] VITALS: BP 103/46
--- NOTE | 2019-04-25 13:27 | Infectious Diseases Prog Note ---
Assessment/Plan Assessment/Plan Fever, SP Leukocytosis, -S-p- Probable Sepsis- 2ry to likely intraabdominal abscess- ?source (post-op complication vs hogshead roller or sigmoid origin) -04/13 Sp Unusual fluid and phlegmon changes seen in the right adnexal region. Comparison with prior study of 03/27/2019 is difficult, due to lack of IV contrast administration currently. However, there appears to be likely decreased discrete fluid but is perhaps slightly increased phlegmon component. In addition, the appendix appears distended with fluid currently but intact. The significance of this finding and he of the surrounding abnormalities is uncertain. There is also a tiny 13 mm collection in the right perirectal region which is unchanged Persistent distention of the endometrium with fluid Slightly increased infiltration of the omental fat adjacent to the distal greater curvature of the stomach without discrete fluid collection. This may represent progressive postsurgical scarring. 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 Right adnexal region irregular fluid collection, corresponding to findings reported on recent CT scan. This is contiguous with an immediately adjacent segment of bowel.This likewise corresponds to findings on recent CT. Note that the fluid collection and extent are better delineated on the prior study. Nonvisualized left ovary -CT abd/p: Markedly thickened and fluid-filled endometrium. 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 Complex multilobulated fluid collection with areas of enhancing soft tissue in the right adnexal region. This measures 5.5 x 7 x 3.9 cm. There is also a second tiny collection adjacent to the distal rectum. One possible etiology is, given the above finding, a tubo-ovarian abscess, related to retrograde propagation of endometritis. A second possibility is that this represents acute diverticulitis with peridiverticular abscess, given the close relationship with the distal sigmoid colon. A third possibility is this represents an abscess related to infected pelvic fluid from the prior gastric perforation, as the previous exam did demonstrate a small amount of free fluid in the pelvis. Finally, given the presence of the appendix (which isprominent in caliber) at the edge of the collection, this could represent perforated acute distal appendicitis. However, this is deemed less likely. Evidence of interim repair of previously demonstrated perforated gastric ulcer. No evidence of contrast leakage. No abnormal fluid collection at the operative site. Colonic diverticulosis. Slight rim enhancement of the gallbladder. Slight pericholecystic fluid. However, the gallbladder is nondistended, so doubt significance of this. Bilateral basilar pulmonary parenchymal groundglass opacity, likely on the basis of mild pulmonary edema Perforated pre-pyloric gastric ulcer -03/15 s/p UGI series: Negative for postoperative leak -03/10 SP 03/10 SP Exploratory Laparotomy, Abdominal washout. Partial omentectomy. Shane patch for repair of perforated pre-pyloric ulcer. -03/10 CT abd/p: Free intraperitoneal gas. Etiology not completely certain, but gas within and extending from the anterior gastric antral wall is suspicious for a perforated gastric ulcer. Perforated descending colon diverticulitis also possible but deemed much less likely. Free intraperitoneal fluid, presumably related to the above. Fatty liver. Basilar pulmonary parenchymal groundglass opacities. This could indicate pulmonary edema, among other possibilities. Subcentimeter low-attenuation renal lesions, too small to characterize, most likely benign simple cyst. No further follow-up necessary. 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 Acute encephalopathy, Sp -CT head: Chronic and age-related changes. Negative for acute intracranial bleed or mass effect VDRF, post-op; extubated 03/12 DARRON, SP Dm2 HTN Plan: -Cont Cefepime # 36 and PO Flagyl #30 for intraabdominal abscess while in house (end date 05/01/19), upon DC will may change to Invanz to complete the course - Monitor weekly CBC, CMP - Would not recommend PO abx in this case lack of cultures and unclear nature of the infection. -03/22 SP Fluconazole #10 -03/15 SP Zosyn #6 -03/10 SP IV Vancomycin #1, Ancef x1 -Monitor CBC/CMP, temperatures -wound care per surgical team -aspiration precautions Subjective Allergies: Coded Allergies: No Known Allergies (Unverified , 03/10/19) Subjective afebrile no leukocytosis Objective Vital Signs Last 24 Hour Vital Signs Date Time Temp Pulse Resp B/P (MAP) Pulse Ox O2 Delivery O2 Flow Rate FiO2 04/25/19 12:00 97.9 82 18 103/46 (65) 97 04/25/19 09:00 Room Air Room Air 04/25/19 08:00 99.5 84 18 113/61 (78) 98 04/25/19 04:00 98.6 92 18 130/70 (90) 95 04/24/19 21:00 Room Air Room Air 04/24/19 20:00 97.8 91 18 108/51 (70) 91 04/24/19 16:00 98.3 85 18 121/51 (74) 98 Height (Feet): 5 Height (Inches): 0.00 Weight (Pounds): 101 Objective General appearance: alert, cooperative, no distress, appears stated age Head: Normocephalic, without obvious abnormality, atraumatic Eyes: conjunctivae/corneas clear. PERRL, EOM's intact. Fundi benign Throat: Lips, mucosa, and tongue normal. Teeth and gums normal Neck: supple, symmetrical, trachea midline, no adenopathy, thyroid: not enlarged, symmetric, no tenderness/mass/nodules, no carotid bruit and no JVD Lungs: clear to auscultation bilaterally Heart: regular rate and rhythm, S1, S2 normal, no murmur, click, rub or gallop Abdomen: soft, peritonitis with tender. Bowel sounds normal. No masses, no organomegaly Extremities: extremities normal, atraumatic, no cyanosis or edema Pulses: 2+ and symmetric Skin: Skin color, texture, turgor normal. No rashes or lesions Neurologic: Grossly normal Laboratory Tests Test 04/25/19 04:50 White Blood Count 4.1 K/UL (4.8-10.8) L Red Blood Count 3.87 M/UL (4.20-5.40) L Hemoglobin 10.2 G/DL (12.0-16.0) L Hematocrit 32.0 % (37.0-47.0) L Mean Corpuscular Volume 83 FL (80-99) Mean Corpuscular Hemoglobin 26.3 PG (27.0-31.0) L Mean Corpuscular Hemoglobin Concent 31.8 G/DL (32.0-36.0) L Red Cell Distribution Width 16.0 % (11.6-14.8) H Platelet Count 203 K/UL (150-450) Mean Platelet Volume 7.2 FL (6.5-10.1) Neutrophils (%) (Auto) 33.4 % (45.0-75.0) L Lymphocytes (%) (Auto) 46.3 % (20.0-45.0) H Monocytes (%) (Auto) 16.0 % (1.0-10.0) H Eosinophils (%) (Auto) 2.5 % (0.0-3.0) Basophils (%) (Auto) 1.7 % (0.0-2.0) Erythrocyte Sedimentation Rate 82 MM/HR (0-30) H Activated Partial Thromboplast Time 62 SEC (23-33) H Sodium Level 140 MMOL/L (136-145) Potassium Level 4.0 MMOL/L (3.5-5.1) Chloride Level 108 MMOL/L (98-107) H Carbon Dioxide Level 23 MMOL/L (21-32) Anion Gap 9 mmol/L (5-15) Blood Urea Nitrogen 10 mg/dL (7-18) Creatinine 0.6 MG/DL (0.55-1.30) Estimat Glomerular Filtration Rate mL/min (>60) Glucose Level 126 MG/DL (74-106) H Calcium Level 8.8 MG/DL (8.5-10.1) Phosphorus Level 2.9 MG/DL (2.5-4.9) Magnesium Level 1.8 MG/DL (1.8-2.4) Total Bilirubin 0.3 MG/DL (0.2-1.0) Aspartate Amino Transf (AST/SGOT) 27 U/L (15-37) Alanine Aminotransferase (ALT/SGPT) 13 U/L (12-78) Alkaline Phosphatase 94 U/L (46-116) C-Reactive Protein, Quantitative 0.5 mg/dL (0.00-0.90) Total Protein 6.3 G/DL (6.4-8.2) L Albumin 2.7 G/DL (3.4-5.0) L Globulin 3.6 g/dL Albumin/Globulin Ratio 0.8 (1.0-2.7) L Current Medications Medications (Trade) Dose Ordered Sig/Shantelle Route PRN Reason Start Time Stop Time Status Last Admin Dose Admin Cefepime HCl 1 gm/ Dextrose 55 ml @ 110 mls/hr DAILY IVPB 03/30/19 09:00 04/29/19 23:59 04/25/19 08:42 Heparin Sodium/ Dextrose 500 ml @ 19.53 mls/ hr ADJUST PER PROTOCOL IV 04/25/19 07:00 05/25/19 06:59 04/25/19 07:05 Magnesium Hydroxide (Mom) 30 ml DAILYPRN PRN ORAL Constipation 04/01/19 17:30 05/01/19 17:29 04/01/19 17:42 Metronidazole (Flagyl) 500 mg Q8HR ORAL 03/23/19 14:00 04/29/19 23:59 04/25/19 05:45 Potassium Chloride (K-Dur) 40 meq DAILY ORAL 04/24/19 11:00 05/24/19 10:59 04/25/19 08:41 Janette Stallworth M.D. Apr 25, 2019 13:27
--- NOTE | 2019-04-25 14:26 | NUR ---
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
[2019-04-25 16:00] VITALS: BP 129/69
--- NOTE | 2019-04-25 18:31 | Internal Med Progress Note ---
Subjective Date of Service: Apr 25, 2019 Physician Name Zen Paige Attending Physician Marcos Silva MD Current Medications Medications (Trade) Dose Ordered Sig/Shantelle Route PRN Reason Start Time Stop Time Status Last Admin Dose Admin Cefepime HCl 1 gm/ Dextrose 55 ml @ 110 mls/hr DAILY IVPB 03/30/19 09:00 04/29/19 23:59 04/25/19 08:42 Heparin Sodium/ Dextrose 500 ml @ 19.53 mls/ hr ADJUST PER PROTOCOL IV 04/25/19 07:00 05/25/19 06:59 04/25/19 07:05 Magnesium Hydroxide (Mom) 30 ml DAILYPRN PRN ORAL Constipation 04/01/19 17:30 05/01/19 17:29 04/01/19 17:42 Metronidazole (Flagyl) 500 mg Q8HR ORAL 03/23/19 14:00 04/29/19 23:59 04/25/19 13:34 Potassium Chloride (K-Dur) 40 meq DAILY ORAL 04/24/19 11:00 05/24/19 10:59 04/25/19 08:41 Allergies: Coded Allergies: No Known Allergies (Unverified , 03/10/19) ROS Limited/Unobtainable: No Constitutional: Reports: no symptoms HEENT: Reports: no symptoms Cardiovascular: Reports: no symptoms Respiratory: Reports: no symptoms Gastrointestinal/Abdominal: Reports: no symptoms Genitourinary: Reports: no symptoms Neurologic/Psychiatric: Reports: no symptoms Subjective 84 YO F admitted with abdominal pain. S/P exploratory laparotomy 03/10/19. Now intra-abdominal abscess. Cover for Int Med-Dr Silva. Objective Last Vital Signs Date Time Temp Pulse Resp B/P (MAP) Pulse Ox O2 Delivery O2 Flow Rate FiO2 04/25/19 16:00 97.9 86 16 129/69 (89) 97 04/25/19 09:00 Room Air Room Air 04/18/19 09:00 3.0 Laboratory Tests Test 04/25/19 04:50 04/25/19 13:25 White Blood Count 4.1 K/UL (4.8-10.8) L Red Blood Count 3.87 M/UL (4.20-5.40) L Hemoglobin 10.2 G/DL (12.0-16.0) L Hematocrit 32.0 % (37.0-47.0) L Mean Corpuscular Volume 83 FL (80-99) Mean Corpuscular Hemoglobin 26.3 PG (27.0-31.0) L Mean Corpuscular Hemoglobin Concent 31.8 G/DL (32.0-36.0) L Red Cell Distribution Width 16.0 % (11.6-14.8) H Platelet Count 203 K/UL (150-450) Mean Platelet Volume 7.2 FL (6.5-10.1) Neutrophils (%) (Auto) 33.4 % (45.0-75.0) L Lymphocytes (%) (Auto) 46.3 % (20.0-45.0) H Monocytes (%) (Auto) 16.0 % (1.0-10.0) H Eosinophils (%) (Auto) 2.5 % (0.0-3.0) Basophils (%) (Auto) 1.7 % (0.0-2.0) Erythrocyte Sedimentation Rate 82 MM/HR (0-30) H Activated Partial Thromboplast Time 62 SEC (23-33) H 72 SEC (23-33) H Sodium Level 140 MMOL/L (136-145) Potassium Level 4.0 MMOL/L (3.5-5.1) Chloride Level 108 MMOL/L (98-107) H Carbon Dioxide Level 23 MMOL/L (21-32) Anion Gap 9 mmol/L (5-15) Blood Urea Nitrogen 10 mg/dL (7-18) Creatinine 0.6 MG/DL (0.55-1.30) Estimat Glomerular Filtration Rate mL/min (>60) Glucose Level 126 MG/DL (74-106) H Calcium Level 8.8 MG/DL (8.5-10.1) Phosphorus Level 2.9 MG/DL (2.5-4.9) Magnesium Level 1.8 MG/DL (1.8-2.4) Total Bilirubin 0.3 MG/DL (0.2-1.0) Aspartate Amino Transf (AST/SGOT) 27 U/L (15-37) Alanine Aminotransferase (ALT/SGPT) 13 U/L (12-78) Alkaline Phosphatase 94 U/L (46-116) C-Reactive Protein, Quantitative 0.5 mg/dL (0.00-0.90) Total Protein 6.3 G/DL (6.4-8.2) L Albumin 2.7 G/DL (3.4-5.0) L Globulin 3.6 g/dL Albumin/Globulin Ratio 0.8 (1.0-2.7) L Intake and Output 04/24/19 04/25/19 19:00 07:00 Intake Total 34.128 ml 287.704 ml Balance 34.128 ml 287.704 ml Intake Oral 100 ml IV Total 34.128 ml 187.704 ml # Voids 3 Objective PHYSICAL EXAMINATION: GENERAL: The patient is a well developed, well nourished female who is intubated and sedated. HEENT: Eyes, pupils equal and responsive to light and accommodation. Extraocular movements are intact. NECK: Supple without lymphadenopathy. CHEST: Nasc canula; Few diffuse wheezes bilaterally. Otherwise, without wheezes or rales. CARDIOVASCULAR: Regular rhythm rate. S1-S2 are normal without murmurs, rubs, or gallops. ABDOMEN: NGT; Soft, nontender with decreased bowel sounds. No evidence of hepatosplenomegaly. no rebound or guarding noted. EXTREMITIES: Negative for clubbing, cyanosis, edema. RECTAL/GENITAL: Not performed. NEUROLOGIC: Cranial nerves II through XII are grossly intact without focal deficits. Assessment/Plan Assessment/Plan ASSESSMENT: This is an 84-year-old female. 1. Perforated gastric ulcer 2. Abdominal pain. 3. Nausea with vomiting. 4. Diabetes type 2. 5. Hypertension. 6. Post Op fever-resolved 7. Leukocytosis 8. Intraabdominal abscess TREATMENT: 1. Perforated gastric ulcer. A General Surgery consultation has been obtained with Dr. Sheth. S/P exploratory laparotomy 03/10/19=perforated Pre pyloric ulcer. Tolerating regular diet; NGT discontinued per surgery 2. Diabetes type 2. NovoLog sliding scale has been instituted. 3. Hypertension. The patient is currently hypotensive. 4. Respiratory failure. S/P extubation 03/12/19. A Pulmonary consultation has been obtained with Dr. Bibiana Pennington. 5. Med/surg 6. ABX=cefepime and flagyl for 6 weeks-end date 05/01/19 per ID 7. Surgical intervention on hold for intraabdominal abscess-see surgery note. Will require 6 weeks of ertapenem per ID 8. WBC now normal; Discharge planning 9. CT abdomen/pelvis results from 04/13/19=right adnexal phlegmon Zen Paige MD Apr 25, 2019 18:31
--- NOTE | 2019-04-25 19:23 | NUR ---
HAND-OFF: Report given to SARAI Rosa. Pt is stable.
--- NOTE | 2019-04-25 19:52 | NUR ---
NURSE NOTES: Patient in bed awake and oriented. VSS. No SOB noted. Heparin drip running and tolerated well. No signs and symptoms of bleeding. No pain. No SOB. Needs attended. Call light within reach. In stable condition.
[2019-04-25 20:00] VITALS: BP 129/74
[2019-04-26] VITALS: BP 119/76
[2019-04-26 04:00] VITALS: BP 124/78
[2019-04-26] MEDS: metroNIDAZOLE 500mg tab ORAL SCH ×3 (06:09→20:46)
[2019-04-26] MEDS: Heparin 25,000u/D5W 500ml 500 ML IV SCH (06:19)
--- NOTE | 2019-04-26 07:39 | NUR ---
NURSE NOTES: UP IN CHAIR, EATING BREAKFAST. NO C/O PAIN. IN NO DISTRESS.
[2019-04-26 08:00] VITALS: BP 129/81
[2019-04-26] MEDS: Cefepime HCl 1 GM in D5W 55 ML IVPB SCH (08:39)
--- NOTE | 2019-04-26 10:23 | NUR ---
RD ASSESSMENT & RECOMMENDATIONS SEE CARE ACTIVITY FOR COMPLETE ASSESSMENT DAILY ESTIMATED NEEDS: Needs based on Surgery, DM, wt loss / 45.9kg 30-35 kcals/kg 6535-2936 total kcals 1-2 g protein/kg 46-92 g total protein 25-30 mL/kg 3075-1309 total fluid mLs NUTRITION DIAGNOSIS: * Altered GI function R/T perforated gastric ulcer as evidenced by s/p ex lap, abdominal washout, partial omentectomy, imelda patch for repair of perforated pre-pyloric ulcer, diet now advanced to regular. * Altered nutrition related lab values R/T diabetes,clinical condition as evidenced by elev BGs (177 226 332-> 126 121, now off all hypoglycemics), A1C 10.2 upon adm, urine glucose 4+, low phos-> now wnl, low mg-> not updated, elev triglycerides (300). CURRENT DIET:CCHO MED + LACTOSE FREE PO DIET RECOMMENDATIONS: BLAND, CCHO LOW DIET ADDITIONAL RECOMMENDATIONS: * Monitor BGs closely, need to re-add hypoglycemics * Calibrated bedscale wt on 04/1819=733.9lbs -> weekly wts given possible wt loss of 17lbs/ 14% in 39 days * Check f/up triglyceride (300 on 03/13) + f/up A1C (10.2 on 03/13) * MVI x 1 as supplement * Trupti DC'ed per pt refusal * Rec routine bowel regimen
--- NOTE | 2019-04-26 11:02 | Nephrology Progress Note ---
Assessment/Plan Problem List: (1) Perforated abdominal viscus (2) Hypokalemia (3) Hypomagnesemia (4) Diabetes mellitus (5) Anemia Assessment WBC rising Post lap on 03/10 Low K Low Phos Low Mag Anemia DM h/o HTN Plan add oral hypoglycemics for high BS DC IV change all to orals Mag and K and Phos IV as needed Anemia claudio Keep BP and BS in check per orders DC planning Subjective ROS Limited/Unobtainable: No Constitutional: Reports: malaise Objective Objective Last 24 Hour Vital Signs Date Time Temp Pulse Resp B/P (MAP) Pulse Ox O2 Delivery O2 Flow Rate FiO2 04/26/19 09:24 Room Air Room Air 04/26/19 08:00 98.0 94 20 129/81 (97) 93 04/26/19 04:00 98.0 83 18 124/78 (93) 98 04/26/19 00:00 97.8 88 18 119/76 (90) 99 04/25/19 21:00 Room Air Room Air 04/25/19 20:00 97.7 93 18 129/74 (92) 98 04/25/19 16:00 97.9 86 16 129/69 (89) 97 04/25/19 12:00 97.9 82 18 103/46 (65) 97 Intake and Output 04/25/19 04/26/19 19:00 07:00 Intake Total 269.83 ml 495.30 ml Balance 269.83 ml 495.30 ml Intake Oral 300 ml IV Total 269.83 ml 195.30 ml # Voids 4 2 Laboratory Tests 04/25/19 13:25: Activated Partial Thromboplast Time 72H 04/26/19 04:00: Activated Partial Thromboplast Time 82H Height (Feet): 5 Height (Inches): 0.00 Weight (Pounds): 101 General Appearance: no apparent distress Objective no change El Clark MD Apr 26, 2019 11:02
--- NOTE | 2019-04-26 11:59 | Infectious Diseases Prog Note ---
Assessment/Plan Assessment/Plan Fever, SP Leukocytosis, -S-p- Probable Sepsis- 2ry to likely intraabdominal abscess- ?source (post-op complication vs customer solutions teammate or sigmoid origin) -04/13 Sp Unusual fluid and phlegmon changes seen in the right adnexal region. Comparison with prior study of 03/27/2019 is difficult, due to lack of IV contrast administration currently. However, there appears to be likely decreased discrete fluid but is perhaps slightly increased phlegmon component. In addition, the appendix appears distended with fluid currently but intact. The significance of this finding and he of the surrounding abnormalities is uncertain. There is also a tiny 13 mm collection in the right perirectal region which is unchanged Persistent distention of the endometrium with fluid Slightly increased infiltration of the omental fat adjacent to the distal greater curvature of the stomach without discrete fluid collection. This may represent progressive postsurgical scarring. 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 Right adnexal region irregular fluid collection, corresponding to findings reported on recent CT scan. This is contiguous with an immediately adjacent segment of bowel.This likewise corresponds to findings on recent CT. Note that the fluid collection and extent are better delineated on the prior study. Nonvisualized left ovary -CT abd/p: Markedly thickened and fluid-filled endometrium. 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 Complex multilobulated fluid collection with areas of enhancing soft tissue in the right adnexal region. This measures 5.5 x 7 x 3.9 cm. There is also a second tiny collection adjacent to the distal rectum. One possible etiology is, given the above finding, a tubo-ovarian abscess, related to retrograde propagation of endometritis. A second possibility is that this represents acute diverticulitis with peridiverticular abscess, given the close relationship with the distal sigmoid colon. A third possibility is this represents an abscess related to infected pelvic fluid from the prior gastric perforation, as the previous exam did demonstrate a small amount of free fluid in the pelvis. Finally, given the presence of the appendix (which isprominent in caliber) at the edge of the collection, this could represent perforated acute distal appendicitis. However, this is deemed less likely. Evidence of interim repair of previously demonstrated perforated gastric ulcer. No evidence of contrast leakage. No abnormal fluid collection at the operative site. Colonic diverticulosis. Slight rim enhancement of the gallbladder. Slight pericholecystic fluid. However, the gallbladder is nondistended, so doubt significance of this. Bilateral basilar pulmonary parenchymal groundglass opacity, likely on the basis of mild pulmonary edema Perforated pre-pyloric gastric ulcer -03/15 s/p UGI series: Negative for postoperative leak -03/10 SP 03/10 SP Exploratory Laparotomy, Abdominal washout. Partial omentectomy. Shane patch for repair of perforated pre-pyloric ulcer. -03/10 CT abd/p: Free intraperitoneal gas. Etiology not completely certain, but gas within and extending from the anterior gastric antral wall is suspicious for a perforated gastric ulcer. Perforated descending colon diverticulitis also possible but deemed much less likely. Free intraperitoneal fluid, presumably related to the above. Fatty liver. Basilar pulmonary parenchymal groundglass opacities. This could indicate pulmonary edema, among other possibilities. Subcentimeter low-attenuation renal lesions, too small to characterize, most likely benign simple cyst. No further follow-up necessary. 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 Acute encephalopathy, Sp -CT head: Chronic and age-related changes. Negative for acute intracranial bleed or mass effect VDRF, post-op; extubated 03/12 DARRON, SP Dm2 HTN Plan: -Cont Cefepime # 37 and PO Flagyl #31 for intraabdominal abscess while in house (end date 05/01/19), upon DC will may change to Invanz to complete the course - Monitor weekly CBC, CMP - Would not recommend PO abx in this case lack of cultures and unclear nature of the infection. -03/22 SP Fluconazole #10 -03/15 SP Zosyn #6 -03/10 SP IV Vancomycin #1, Ancef x1 -Monitor CBC/CMP, temperatures -wound care per surgical team -aspiration precautions Subjective Allergies: Coded Allergies: No Known Allergies (Unverified , 03/10/19) Subjective afebrile no leukocytosis Objective Vital Signs Last 24 Hour Vital Signs Date Time Temp Pulse Resp B/P (MAP) Pulse Ox O2 Delivery O2 Flow Rate FiO2 04/26/19 09:24 Room Air Room Air 04/26/19 08:00 98.0 94 20 129/81 (97) 93 04/26/19 04:00 98.0 83 18 124/78 (93) 98 04/26/19 00:00 97.8 88 18 119/76 (90) 99 04/25/19 21:00 Room Air Room Air 04/25/19 20:00 97.7 93 18 129/74 (92) 98 04/25/19 16:00 97.9 86 16 129/69 (89) 97 04/25/19 12:00 97.9 82 18 103/46 (65) 97 Height (Feet): 5 Height (Inches): 0.00 Weight (Pounds): 101 Objective General appearance: alert, cooperative, no distress, appears stated age Head: Normocephalic, without obvious abnormality, atraumatic Eyes: conjunctivae/corneas clear. PERRL, EOM's intact. Fundi benign Throat: Lips, mucosa, and tongue normal. Teeth and gums normal Neck: supple, symmetrical, trachea midline, no adenopathy, thyroid: not enlarged, symmetric, no tenderness/mass/nodules, no carotid bruit and no JVD Lungs: clear to auscultation bilaterally Heart: regular rate and rhythm, S1, S2 normal, no murmur, click, rub or gallop Abdomen: soft, peritonitis with tender. Bowel sounds normal. No masses, no organomegaly Extremities: extremities normal, atraumatic, no cyanosis or edema Pulses: 2+ and symmetric Skin: Skin color, texture, turgor normal. No rashes or lesions Neurologic: Grossly normal Laboratory Tests Test 04/25/19 13:25 04/26/19 04:00 Activated Partial Thromboplast Time 72 SEC (23-33) H 82 SEC (23-33) H Current Medications Medications (Trade) Dose Ordered Sig/Shantelle Route PRN Reason Start Time Stop Time Status Last Admin Dose Admin Cefepime HCl 1 gm/ Dextrose 55 ml @ 110 mls/hr DAILY IVPB 03/30/19 09:00 04/29/19 23:59 04/26/19 08:39 Heparin Sodium/ Dextrose 500 ml @ 19.53 mls/ hr ADJUST PER PROTOCOL IV 04/25/19 07:00 05/25/19 06:59 04/26/19 06:19 Magnesium Hydroxide (Mom) 30 ml DAILYPRN PRN ORAL Constipation 04/01/19 17:30 05/01/19 17:29 04/01/19 17:42 Metronidazole (Flagyl) 500 mg Q8HR ORAL 03/23/19 14:00 04/29/19 23:59 04/26/19 06:09 Potassium Chloride (K-Dur) 40 meq DAILY ORAL 04/24/19 11:00 05/24/19 10:59 04/26/19 08:39 Janette Stallworth M.D. Apr 26, 2019 11:59
[2019-04-26 12:00] VITALS: BP 125/78
[2019-04-26 16:00] VITALS: BP 144/74
--- NOTE | 2019-04-26 17:00 | Internal Med Progress Note ---
Subjective Date of Service: Apr 26, 2019 Physician Name Zen Paige Attending Physician Marcos Silva MD Current Medications Medications (Trade) Dose Ordered Sig/Shantelle Route PRN Reason Start Time Stop Time Status Last Admin Dose Admin Cefepime HCl 1 gm/ Dextrose 55 ml @ 110 mls/hr DAILY IVPB 03/30/19 09:00 04/29/19 23:59 04/26/19 08:39 Heparin Sodium/ Dextrose 500 ml @ 19.53 mls/ hr ADJUST PER PROTOCOL IV 04/25/19 07:00 05/25/19 06:59 04/26/19 06:19 Magnesium Hydroxide (Mom) 30 ml DAILYPRN PRN ORAL Constipation 04/01/19 17:30 05/01/19 17:29 04/01/19 17:42 Metronidazole (Flagyl) 500 mg Q8HR ORAL 03/23/19 14:00 04/29/19 23:59 04/26/19 13:51 Potassium Chloride (K-Dur) 40 meq DAILY ORAL 04/24/19 11:00 05/24/19 10:59 04/26/19 08:39 Allergies: Coded Allergies: No Known Allergies (Unverified , 03/10/19) ROS Limited/Unobtainable: No Constitutional: Reports: no symptoms HEENT: Reports: no symptoms Cardiovascular: Reports: no symptoms Respiratory: Reports: no symptoms Gastrointestinal/Abdominal: Reports: no symptoms Genitourinary: Reports: no symptoms Neurologic/Psychiatric: Reports: no symptoms Subjective 84 YO F admitted with abdominal pain. S/P exploratory laparotomy 03/10/19. Now intra-abdominal abscess. Cover for Int Med-Dr Silva. Objective Last Vital Signs Date Time Temp Pulse Resp B/P (MAP) Pulse Ox O2 Delivery O2 Flow Rate FiO2 04/26/19 12:00 97.7 96 20 125/78 (94) 99 04/26/19 09:24 Room Air Room Air 04/18/19 09:00 3.0 Laboratory Tests Test 04/26/19 04:00 Activated Partial Thromboplast Time 82 SEC (23-33) H Intake and Output 04/25/19 04/26/19 19:00 07:00 Intake Total 269.83 ml 495.30 ml Balance 269.83 ml 495.30 ml Intake Oral 300 ml IV Total 269.83 ml 195.30 ml # Voids 4 2 Objective PHYSICAL EXAMINATION: GENERAL: The patient is a well developed, well nourished female who is intubated and sedated. HEENT: Eyes, pupils equal and responsive to light and accommodation. Extraocular movements are intact. NECK: Supple without lymphadenopathy. CHEST: Nasc canula; Few diffuse wheezes bilaterally. Otherwise, without wheezes or rales. CARDIOVASCULAR: Regular rhythm rate. S1-S2 are normal without murmurs, rubs, or gallops. ABDOMEN: NGT; Soft, nontender with decreased bowel sounds. No evidence of hepatosplenomegaly. no rebound or guarding noted. EXTREMITIES: Negative for clubbing, cyanosis, edema. RECTAL/GENITAL: Not performed. NEUROLOGIC: Cranial nerves II through XII are grossly intact without focal deficits. Assessment/Plan Assessment/Plan ASSESSMENT: This is an 84-year-old female. 1. Perforated gastric ulcer 2. Abdominal pain. 3. Nausea with vomiting. 4. Diabetes type 2. 5. Hypertension. 6. Post Op fever-resolved 7. Leukocytosis 8. Intraabdominal abscess TREATMENT: 1. Perforated gastric ulcer. A General Surgery consultation has been obtained with Dr. Sheth. S/P exploratory laparotomy 03/10/19=perforated Pre pyloric ulcer. Tolerating regular diet; NGT discontinued per surgery 2. Diabetes type 2. NovoLog sliding scale has been instituted. 3. Hypertension. The patient is currently hypotensive. 4. Respiratory failure. S/P extubation 03/12/19. A Pulmonary consultation has been obtained with Dr. Bibiana Pennington. 5. Med/surg 6. ABX=cefepime and flagyl for 6 weeks-end date 05/01/19 per ID 7. Surgical intervention on hold for intraabdominal abscess-see surgery note. Will require 6 weeks of ertapenem per ID 8. WBC now normal; Discharge planning 9. CT abdomen/pelvis results from 04/13/19=right adnexal phlegmon Zen Paige MD Apr 26, 2019 17:00
--- NOTE | 2019-04-26 19:06 | NUR ---
NURSE NOTES: quiet in bed. in no distress.
--- NOTE | 2019-04-26 19:35 | NUR ---
HAND-OFF: Report given to Jonatahn JANE RN.
[2019-04-26 20:00] VITALS: BP 136/82
--- NOTE | 2019-04-26 20:00 | NUR ---
NURSE NOTES: Patient sitting on the chair with family at bedside. No Pain. No SOB noted. No Chest pain. IV site intact and able to tolerate Heparin drip well. No Signs and symptoms of bleeding. Needs attended. Call light within reach. In stable condition.
[2019-04-27] VITALS: BP 133/74
[2019-04-27 04:00] VITALS: BP 141/80
--- NOTE | 2019-04-27 04:30 | NUR ---
NURSE NOTES: PTT at 64. Pharmacist called to change heparin drip rate to 23ml/kg/hr. rate = 21.39m. In stable condition. PTT timed draw ordered at 1100
[2019-04-27] MEDS ORDERED: Heparin 25,000u/D5W 500ml 500 ML IV SCH (04:45)
[2019-04-27] MEDS: metroNIDAZOLE 500mg tab ORAL SCH ×3 (06:07→21:20)
--- NOTE | 2019-04-27 07:27 | NUR ---
NURSE NOTES: AWAKE/ALERT. NO C/O PAIN. IN NO DISTRESS.
[2019-04-27 08:00] VITALS: BP 121/70
[2019-04-27] MEDS: Cefepime HCl 1 GM in D5W 55 ML IVPB SCH (08:29)
--- NOTE | 2019-04-27 11:29 | NUR ---
NURSE NOTES: APPLIED MOISTURE BARRIER CREAM TO BUTTOCKS. COVERED WITH OPTIFOAM DRESSING DRY AND INTACT.
--- NOTE | 2019-04-27 11:52 | Internal Med Progress Note ---
Subjective Date of Service: Apr 27, 2019 Physician Name Zen Paige Attending Physician Marcos Silva MD Current Medications Medications (Trade) Dose Ordered Sig/Shantelle Route PRN Reason Start Time Stop Time Status Last Admin Dose Admin Cefepime HCl 1 gm/ Dextrose 55 ml @ 110 mls/hr DAILY IVPB 03/30/19 09:00 05/01/19 10:00 04/27/19 08:29 Heparin Sodium/ Dextrose 500 ml @ 21.39 mls/ hr ADJUST PER PROTOCOL IV 04/27/19 04:45 05/25/19 06:59 04/27/19 05:49 Magnesium Hydroxide (Mom) 30 ml DAILYPRN PRN ORAL Constipation 04/01/19 17:30 05/01/19 17:29 04/01/19 17:42 Metronidazole (Flagyl) 500 mg Q8HR ORAL 03/23/19 14:00 05/01/19 23:59 04/27/19 06:07 Potassium Chloride (K-Dur) 40 meq DAILY ORAL 04/24/19 11:00 05/24/19 10:59 04/27/19 08:29 Allergies: Coded Allergies: No Known Allergies (Unverified , 03/10/19) ROS Limited/Unobtainable: No Constitutional: Reports: no symptoms HEENT: Reports: no symptoms Cardiovascular: Reports: no symptoms Respiratory: Reports: no symptoms Gastrointestinal/Abdominal: Reports: no symptoms Genitourinary: Reports: no symptoms Subjective 84 YO F admitted with abdominal pain. S/P exploratory laparotomy 03/10/19. Now intra-abdominal abscess. Cover for Int Med-Dr Silva. Objective Last Vital Signs Date Time Temp Pulse Resp B/P (MAP) Pulse Ox O2 Delivery O2 Flow Rate FiO2 04/27/19 08:14 Room Air Room Air 04/27/19 08:00 97.9 91 18 121/70 (87) 98 04/18/19 09:00 3.0 Laboratory Tests Test 04/27/19 04:10 04/27/19 11:00 Activated Partial Thromboplast Time 64 SEC (23-33) H 89 SEC (23-33) H Intake and Output 04/26/19 04/27/19 19:00 07:00 Intake Total 1089.13 ml 399.51 ml Balance 1089.13 ml 399.51 ml Intake Oral 800 ml 300 ml IV Total 289.13 ml 99.51 ml # Voids 3 2 Objective PHYSICAL EXAMINATION: GENERAL: The patient is a well developed, well nourished female who is intubated and sedated. HEENT: Eyes, pupils equal and responsive to light and accommodation. Extraocular movements are intact. NECK: Supple without lymphadenopathy. CHEST: Nasc canula; Few diffuse wheezes bilaterally. Otherwise, without wheezes or rales. CARDIOVASCULAR: Regular rhythm rate. S1-S2 are normal without murmurs, rubs, or gallops. ABDOMEN: NGT; Soft, nontender with decreased bowel sounds. No evidence of hepatosplenomegaly. no rebound or guarding noted. EXTREMITIES: Negative for clubbing, cyanosis, edema. RECTAL/GENITAL: Not performed. NEUROLOGIC: Cranial nerves II through XII are grossly intact without focal deficits. Assessment/Plan Assessment/Plan ASSESSMENT: This is an 84-year-old female. 1. Perforated gastric ulcer 2. Abdominal pain. 3. Nausea with vomiting. 4. Diabetes type 2. 5. Hypertension. 6. Post Op fever-resolved 7. Leukocytosis 8. Intraabdominal abscess TREATMENT: 1. Perforated gastric ulcer. A General Surgery consultation has been obtained with Dr. Sheth. S/P exploratory laparotomy 03/10/19=perforated Pre pyloric ulcer. Tolerating regular diet; NGT discontinued per surgery 2. Diabetes type 2. NovoLog sliding scale has been instituted. 3. Hypertension. The patient is currently hypotensive. 4. Respiratory failure. S/P extubation 03/12/19. A Pulmonary consultation has been obtained with Dr. Bibiana Pennington. 5. Med/surg 6. ABX=cefepime and flagyl for 6 weeks-end date 05/01/19 per ID 7. Surgical intervention on hold for intraabdominal abscess-see surgery note. Will require 6 weeks of ertapenem per ID 8. WBC now normal; Discharge planning 9. CT abdomen/pelvis results from 04/13/19=right adnexal phlegmon Zen Paige MD Apr 27, 2019 11:52
[2019-04-27 12:00] VITALS: BP 119/73
--- NOTE | 2019-04-27 12:00 | NUR ---
NURSE NOTES: PTT 59. NO CHANGE PER PROTOCOL. PTT IN AM
--- NOTE | 2019-04-27 12:01 | NUR ---
NURSE NOTES: APTT result noted 89 and no change on the rate.
--- NOTE | 2019-04-27 12:09 | Infectious Diseases Prog Note ---
Assessment/Plan Assessment/Plan Fever, SP Leukocytosis, -S-p- Probable Sepsis- 2ry to likely intraabdominal abscess- ?source (post-op complication vs chief engineer or sigmoid origin) -04/13 Sp Unusual fluid and phlegmon changes seen in the right adnexal region. Comparison with prior study of 03/27/2019 is difficult, due to lack of IV contrast administration currently. However, there appears to be likely decreased discrete fluid but is perhaps slightly increased phlegmon component. In addition, the appendix appears distended with fluid currently but intact. The significance of this finding and he of the surrounding abnormalities is uncertain. There is also a tiny 13 mm collection in the right perirectal region which is unchanged Persistent distention of the endometrium with fluid Slightly increased infiltration of the omental fat adjacent to the distal greater curvature of the stomach without discrete fluid collection. This may represent progressive postsurgical scarring. 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 Right adnexal region irregular fluid collection, corresponding to findings reported on recent CT scan. This is contiguous with an immediately adjacent segment of bowel.This likewise corresponds to findings on recent CT. Note that the fluid collection and extent are better delineated on the prior study. Nonvisualized left ovary -CT abd/p: Markedly thickened and fluid-filled endometrium. 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 Complex multilobulated fluid collection with areas of enhancing soft tissue in the right adnexal region. This measures 5.5 x 7 x 3.9 cm. There is also a second tiny collection adjacent to the distal rectum. One possible etiology is, given the above finding, a tubo-ovarian abscess, related to retrograde propagation of endometritis. A second possibility is that this represents acute diverticulitis with peridiverticular abscess, given the close relationship with the distal sigmoid colon. A third possibility is this represents an abscess related to infected pelvic fluid from the prior gastric perforation, as the previous exam did demonstrate a small amount of free fluid in the pelvis. Finally, given the presence of the appendix (which isprominent in caliber) at the edge of the collection, this could represent perforated acute distal appendicitis. However, this is deemed less likely. Evidence of interim repair of previously demonstrated perforated gastric ulcer. No evidence of contrast leakage. No abnormal fluid collection at the operative site. Colonic diverticulosis. Slight rim enhancement of the gallbladder. Slight pericholecystic fluid. However, the gallbladder is nondistended, so doubt significance of this. Bilateral basilar pulmonary parenchymal groundglass opacity, likely on the basis of mild pulmonary edema Perforated pre-pyloric gastric ulcer -03/15 s/p UGI series: Negative for postoperative leak -03/10 SP 03/10 SP Exploratory Laparotomy, Abdominal washout. Partial omentectomy. Shane patch for repair of perforated pre-pyloric ulcer. -03/10 CT abd/p: Free intraperitoneal gas. Etiology not completely certain, but gas within and extending from the anterior gastric antral wall is suspicious for a perforated gastric ulcer. Perforated descending colon diverticulitis also possible but deemed much less likely. Free intraperitoneal fluid, presumably related to the above. Fatty liver. Basilar pulmonary parenchymal groundglass opacities. This could indicate pulmonary edema, among other possibilities. Subcentimeter low-attenuation renal lesions, too small to characterize, most likely benign simple cyst. No further follow-up necessary. 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 Acute encephalopathy, Sp -CT head: Chronic and age-related changes. Negative for acute intracranial bleed or mass effect VDRF, post-op; extubated 03/12 DARRON, SP Dm2 HTN Plan: -Cont Cefepime # 38 and PO Flagyl #33 for intraabdominal abscess while in house (end date 05/01/19), upon DC will may change to Invanz to complete the course - Monitor weekly CBC, CMP - Would not recommend PO abx in this case lack of cultures and unclear nature of the infection. -03/22 SP Fluconazole #10 -03/15 SP Zosyn #6 -03/10 SP IV Vancomycin #1, Ancef x1 -Monitor CBC/CMP, temperatures -wound care per surgical team -aspiration precautions Subjective Allergies: Coded Allergies: No Known Allergies (Unverified , 03/10/19) Subjective afebrile no leukocytosis ambulating and eating well no pain Objective Vital Signs Last 24 Hour Vital Signs Date Time Temp Pulse Resp B/P (MAP) Pulse Ox O2 Delivery O2 Flow Rate FiO2 04/27/19 08:14 Room Air Room Air 04/27/19 08:00 97.9 91 18 121/70 (87) 98 04/27/19 04:00 98.0 79 18 141/80 (100) 98 04/27/19 00:00 98.6 82 18 133/74 (93) 99 04/26/19 21:00 Room Air Room Air 04/26/19 20:00 97.9 88 19 136/82 (100) 98 04/26/19 16:00 98.1 94 20 144/74 (97) 99 Height (Feet): 5 Height (Inches): 0.00 Weight (Pounds): 102 Objective General appearance: alert, cooperative, no distress, appears stated age Head: Normocephalic, without obvious abnormality, atraumatic Eyes: conjunctivae/corneas clear. PERRL, EOM's intact. Fundi benign Throat: Lips, mucosa, and tongue normal. Teeth and gums normal Neck: supple, symmetrical, trachea midline, no adenopathy, thyroid: not enlarged, symmetric, no tenderness/mass/nodules, no carotid bruit and no JVD Lungs: clear to auscultation bilaterally Heart: regular rate and rhythm, S1, S2 normal, no murmur, click, rub or gallop Abdomen: soft, peritonitis with tender. Bowel sounds normal. No masses, no organomegaly Extremities: extremities normal, atraumatic, no cyanosis or edema Pulses: 2+ and symmetric Skin: Skin color, texture, turgor normal. No rashes or lesions Neurologic: Grossly normal Laboratory Tests Test 04/27/19 04:10 04/27/19 11:00 Activated Partial Thromboplast Time 64 SEC (23-33) H 89 SEC (23-33) H Current Medications Medications (Trade) Dose Ordered Sig/Shantelle Route PRN Reason Start Time Stop Time Status Last Admin Dose Admin Cefepime HCl 1 gm/ Dextrose 55 ml @ 110 mls/hr DAILY IVPB 03/30/19 09:00 05/01/19 10:00 04/27/19 08:29 Heparin Sodium/ Dextrose 500 ml @ 21.39 mls/ hr ADJUST PER PROTOCOL IV 04/27/19 04:45 05/25/19 06:59 04/27/19 05:49 Magnesium Hydroxide (Mom) 30 ml DAILYPRN PRN ORAL Constipation 04/01/19 17:30 05/01/19 17:29 04/01/19 17:42 Metronidazole (Flagyl) 500 mg Q8HR ORAL 03/23/19 14:00 05/01/19 23:59 04/27/19 06:07 Potassium Chloride (K-Dur) 40 meq DAILY ORAL 04/24/19 11:00 05/24/19 10:59 04/27/19 08:29 Janette Stallworth M.D. Apr 27, 2019 12:08
--- NOTE | 2019-04-27 13:20 | Nephrology Progress Note ---
Assessment/Plan Problem List: (1) Perforated abdominal viscus (2) Hypokalemia (3) Hypomagnesemia (4) Diabetes mellitus (5) Anemia Assessment WBC rising Post lap on 03/10 Low K Low Phos Low Mag Anemia DM h/o HTN Plan add oral hypoglycemics for high BS DC IV change all to orals Mag and K and Phos IV as needed Anemia claudio Keep BP and BS in check per orders DC planning Subjective ROS Limited/Unobtainable: No Constitutional: Reports: malaise Objective Objective Last 24 Hour Vital Signs Date Time Temp Pulse Resp B/P (MAP) Pulse Ox O2 Delivery O2 Flow Rate FiO2 04/27/19 12:00 98.4 91 20 119/73 (88) 98 04/27/19 08:14 Room Air Room Air 04/27/19 08:00 97.9 91 18 121/70 (87) 98 04/27/19 04:00 98.0 79 18 141/80 (100) 98 04/27/19 00:00 98.6 82 18 133/74 (93) 99 04/26/19 21:00 Room Air Room Air 04/26/19 20:00 97.9 88 19 136/82 (100) 98 04/26/19 16:00 98.1 94 20 144/74 (97) 99 Intake and Output 04/26/19 04/27/19 19:00 07:00 Intake Total 1089.13 ml 399.51 ml Balance 1089.13 ml 399.51 ml Intake Oral 800 ml 300 ml IV Total 289.13 ml 99.51 ml # Voids 3 2 Laboratory Tests 04/27/19 04:10: Activated Partial Thromboplast Time 64H 04/27/19 11:00: Activated Partial Thromboplast Time 89H Height (Feet): 5 Height (Inches): 0.00 Weight (Pounds): 102 General Appearance: no apparent distress Objective no change El Clark MD Apr 27, 2019 13:20
--- NOTE | 2019-04-27 13:44 | NUR ---
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
[2019-04-27 16:00] VITALS: BP 120/70
--- NOTE | 2019-04-27 19:00 | NUR ---
NURSE NOTES: PT IN STABLE CONDITION. NO ACUTE CHANGES.
--- NOTE | 2019-04-27 19:05 | NUR ---
HAND-OFF: Report given to Jonathan REN RN.
--- NOTE | 2019-04-27 19:45 | NUR ---
NURSE NOTES: Received report from SARAI Marcus. Received pt ambulating in the hallway with walker accompanied by family members. Denies pain at this time. IV R and L FA patent and intact. Heparin drip infusing as ordered current rate 23 units/kg/hr or 21.39ml/hr. Will continue to monitor.
[2019-04-27 20:00] VITALS: BP 149/76
[2019-04-28] VITALS: BP 119/78
--- NOTE | 2019-04-28 04:42 | NUR ---
NURSE NOTES: PTT result 112. Hold infusion for 30 mins. Decrease by 3 units/kg/hr.
--- NOTE | 2019-04-28 05:12 | NUR ---
NURSE NOTES: New Heparin drip rate 20 units/kg/hr or 18.6 ml/hr. Next PTT draw at 11:12am.
[2019-04-28] MEDS: Heparin 25,000u/D5W 500ml 500 ML IV SCH (05:14)
[2019-04-28 05:20] VITALS: BP 122/63
[2019-04-28] MEDS: metroNIDAZOLE 500mg tab ORAL SCH ×3 (05:56→21:33)
--- NOTE | 2019-04-28 07:24 | NUR ---
HAND-OFF: Report given to SARAI Carpenter. Pt in stable condition.
--- NOTE | 2019-04-28 07:30 | NUR ---
NURSE NOTES: Patient sitting in chair eating breakfast. No complain of pain or distress at this time. Surgical site intact and dry. IV dressing intact and dry. Heparin drip on going as ordered. Bed lowest position. Call light within reach. Will continue to monitor.
[2019-04-28 08:00] VITALS: BP 124/72
[2019-04-28] MEDS: Cefepime HCl 1 GM in D5W 55 ML IVPB SCH (08:59)
--- NOTE | 2019-04-28 10:01 | Nephrology Progress Note ---
Assessment/Plan Problem List: (1) Perforated abdominal viscus (2) Hypokalemia (3) Hypomagnesemia (4) Diabetes mellitus (5) Anemia Assessment WBC rising Post lap on 03/10 Low K Low Phos Low Mag Anemia DM h/o HTN Plan add oral hypoglycemics for high BS DC IV change all to orals Mag and K and Phos IV as needed Anemia claudio Keep BP and BS in check per orders DC planning Subjective ROS Limited/Unobtainable: No Objective Objective Last 24 Hour Vital Signs Date Time Temp Pulse Resp B/P (MAP) Pulse Ox O2 Delivery O2 Flow Rate FiO2 04/28/19 09:00 Room Air Room Air 04/28/19 08:00 97.9 92 20 124/72 (89) 99 04/28/19 05:20 97.9 88 18 122/63 (82) 97 04/28/19 00:00 97.8 93 17 119/78 (92) 96 04/27/19 21:00 Room Air Room Air 04/27/19 20:00 97.3 87 18 149/76 (100) 98 04/27/19 16:00 98.1 90 18 120/70 (87) 97 04/27/19 12:00 98.4 91 20 119/73 (88) 98 Intake and Output 04/27/19 04/28/19 18:59 06:59 Intake Total 611.68 ml 432.50 ml Balance 611.68 ml 432.50 ml Intake Oral 300 ml 200 ml IV Total 311.68 ml 232.50 ml # Voids 3 2 # Bowel Movements 3 Laboratory Tests 04/27/19 11:00: Activated Partial Thromboplast Time 89H 04/28/19 04:05: Activated Partial Thromboplast Time 112H Height (Feet): 5 Height (Inches): 0.00 Weight (Pounds): 102 General Appearance: no apparent distress Cardiovascular: normal rate Respiratory/Chest: lungs clear Abdomen: soft Objective no change El Clark MD Apr 28, 2019 10:01
--- NOTE | 2019-04-28 11:49 | Infectious Diseases Prog Note ---
Assessment/Plan Assessment/Plan Fever, SP Leukocytosis, -S-p- Probable Sepsis- 2ry to likely intraabdominal abscess- ?source (post-op complication vs voice coach or sigmoid origin) -04/13 Sp Unusual fluid and phlegmon changes seen in the right adnexal region. Comparison with prior study of 03/27/2019 is difficult, due to lack of IV contrast administration currently. However, there appears to be likely decreased discrete fluid but is perhaps slightly increased phlegmon component. In addition, the appendix appears distended with fluid currently but intact. The significance of this finding and he of the surrounding abnormalities is uncertain. There is also a tiny 13 mm collection in the right perirectal region which is unchanged Persistent distention of the endometrium with fluid Slightly increased infiltration of the omental fat adjacent to the distal greater curvature of the stomach without discrete fluid collection. This may represent progressive postsurgical scarring. 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 Right adnexal region irregular fluid collection, corresponding to findings reported on recent CT scan. This is contiguous with an immediately adjacent segment of bowel.This likewise corresponds to findings on recent CT. Note that the fluid collection and extent are better delineated on the prior study. Nonvisualized left ovary -CT abd/p: Markedly thickened and fluid-filled endometrium. 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 Complex multilobulated fluid collection with areas of enhancing soft tissue in the right adnexal region. This measures 5.5 x 7 x 3.9 cm. There is also a second tiny collection adjacent to the distal rectum. One possible etiology is, given the above finding, a tubo-ovarian abscess, related to retrograde propagation of endometritis. A second possibility is that this represents acute diverticulitis with peridiverticular abscess, given the close relationship with the distal sigmoid colon. A third possibility is this represents an abscess related to infected pelvic fluid from the prior gastric perforation, as the previous exam did demonstrate a small amount of free fluid in the pelvis. Finally, given the presence of the appendix (which isprominent in caliber) at the edge of the collection, this could represent perforated acute distal appendicitis. However, this is deemed less likely. Evidence of interim repair of previously demonstrated perforated gastric ulcer. No evidence of contrast leakage. No abnormal fluid collection at the operative site. Colonic diverticulosis. Slight rim enhancement of the gallbladder. Slight pericholecystic fluid. However, the gallbladder is nondistended, so doubt significance of this. Bilateral basilar pulmonary parenchymal groundglass opacity, likely on the basis of mild pulmonary edema Perforated pre-pyloric gastric ulcer -03/15 s/p UGI series: Negative for postoperative leak -03/10 SP 03/10 SP Exploratory Laparotomy, Abdominal washout. Partial omentectomy. Shane patch for repair of perforated pre-pyloric ulcer. -03/10 CT abd/p: Free intraperitoneal gas. Etiology not completely certain, but gas within and extending from the anterior gastric antral wall is suspicious for a perforated gastric ulcer. Perforated descending colon diverticulitis also possible but deemed much less likely. Free intraperitoneal fluid, presumably related to the above. Fatty liver. Basilar pulmonary parenchymal groundglass opacities. This could indicate pulmonary edema, among other possibilities. Subcentimeter low-attenuation renal lesions, too small to characterize, most likely benign simple cyst. No further follow-up necessary. 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 Acute encephalopathy, Sp -CT head: Chronic and age-related changes. Negative for acute intracranial bleed or mass effect VDRF, post-op; extubated 03/12 DARRON, SP Dm2 HTN Plan: -Cont Cefepime # 39 and PO Flagyl #34 for intraabdominal abscess while in house (end date 05/01/19), upon DC will may change to Invanz to complete the course - Monitor weekly CBC, CMP - Would not recommend PO abx in this case lack of cultures and unclear nature of the infection. -03/22 SP Fluconazole #10 -03/15 SP Zosyn #6 -03/10 SP IV Vancomycin #1, Ancef x1 -Monitor CBC/CMP, temperatures -wound care per surgical team -aspiration precautions Subjective Allergies: Coded Allergies: No Known Allergies (Unverified , 03/10/19) Subjective afebrile no leukocytosis ambulating and eating well no pain Objective Vital Signs Last 24 Hour Vital Signs Date Time Temp Pulse Resp B/P (MAP) Pulse Ox O2 Delivery O2 Flow Rate FiO2 04/28/19 09:00 Room Air Room Air 04/28/19 08:00 97.9 92 20 124/72 (89) 99 04/28/19 05:20 97.9 88 18 122/63 (82) 97 04/28/19 00:00 97.8 93 17 119/78 (92) 96 04/27/19 21:00 Room Air Room Air 04/27/19 20:00 97.3 87 18 149/76 (100) 98 04/27/19 16:00 98.1 90 18 120/70 (87) 97 04/27/19 12:00 98.4 91 20 119/73 (88) 98 Height (Feet): 5 Height (Inches): 0.00 Weight (Pounds): 102 Objective General appearance: alert, cooperative, no distress, appears stated age Head: Normocephalic, without obvious abnormality, atraumatic Eyes: conjunctivae/corneas clear. PERRL, EOM's intact. Fundi benign Throat: Lips, mucosa, and tongue normal. Teeth and gums normal Neck: supple, symmetrical, trachea midline, no adenopathy, thyroid: not enlarged, symmetric, no tenderness/mass/nodules, no carotid bruit and no JVD Lungs: clear to auscultation bilaterally Heart: regular rate and rhythm, S1, S2 normal, no murmur, click, rub or gallop Abdomen: soft, peritonitis with tender. Bowel sounds normal. No masses, no organomegaly Extremities: extremities normal, atraumatic, no cyanosis or edema Pulses: 2+ and symmetric Skin: Skin color, texture, turgor normal. No rashes or lesions Neurologic: Grossly normal Laboratory Tests Test 04/28/19 04:05 04/28/19 11:00 Activated Partial Thromboplast Time 112 SEC (23-33) H 68 SEC (23-33) H Current Medications Medications (Trade) Dose Ordered Sig/Shantelle Route PRN Reason Start Time Stop Time Status Last Admin Dose Admin Cefepime HCl 1 gm/ Dextrose 55 ml @ 110 mls/hr DAILY IVPB 03/30/19 09:00 05/01/19 10:00 04/28/19 08:59 Heparin Sodium/ Dextrose 500 ml @ 18.6 mls/hr ADJUST PER PROTOCOL IV 04/28/19 05:30 05/28/19 05:29 04/28/19 05:14 Magnesium Hydroxide (Mom) 30 ml DAILYPRN PRN ORAL Constipation 04/01/19 17:30 05/01/19 17:29 04/01/19 17:42 Metronidazole (Flagyl) 500 mg Q8HR ORAL 03/23/19 14:00 05/01/19 23:59 04/28/19 05:56 Potassium Chloride (K-Dur) 40 meq DAILY ORAL 04/24/19 11:00 05/24/19 10:59 04/28/19 08:58 Janette Stallworth M.D. Apr 28, 2019 11:49
[2019-04-28 12:00] VITALS: BP 123/65
[2019-04-28 16:00] VITALS: BP 114/77
--- NOTE | 2019-04-28 19:01 | Internal Med Progress Note ---
Subjective Date of Service: Apr 28, 2019 Physician Name Zen Paige Attending Physician Marcos Silva MD Current Medications Medications (Trade) Dose Ordered Sig/Shantelle Route PRN Reason Start Time Stop Time Status Last Admin Dose Admin Cefepime HCl 1 gm/ Dextrose 55 ml @ 110 mls/hr DAILY IVPB 03/30/19 09:00 05/01/19 10:00 04/28/19 08:59 Heparin Sodium/ Dextrose 500 ml @ 18.6 mls/hr ADJUST PER PROTOCOL IV 04/28/19 05:30 05/28/19 05:29 04/28/19 05:14 Magnesium Hydroxide (Mom) 30 ml DAILYPRN PRN ORAL Constipation 04/01/19 17:30 05/01/19 17:29 04/01/19 17:42 Metronidazole (Flagyl) 500 mg Q8HR ORAL 03/23/19 14:00 05/01/19 23:59 04/28/19 13:56 Potassium Chloride (K-Dur) 40 meq DAILY ORAL 04/24/19 11:00 05/24/19 10:59 04/28/19 08:58 Allergies: Coded Allergies: No Known Allergies (Unverified , 03/10/19) ROS Limited/Unobtainable: No Constitutional: Reports: no symptoms HEENT: Reports: no symptoms Cardiovascular: Reports: no symptoms Respiratory: Reports: no symptoms Gastrointestinal/Abdominal: Reports: no symptoms Genitourinary: Reports: no symptoms Neurologic/Psychiatric: Reports: no symptoms Subjective 84 YO F admitted with abdominal pain. S/P exploratory laparotomy 03/10/19. Now intra-abdominal abscess. Cover for Int Med-Dr Silva. Objective Last Vital Signs Date Time Temp Pulse Resp B/P (MAP) Pulse Ox O2 Delivery O2 Flow Rate FiO2 04/28/19 16:00 98.2 98 20 114/77 (89) 99 04/28/19 09:00 Room Air Room Air Laboratory Tests Test 04/28/19 04:05 04/28/19 11:00 Activated Partial Thromboplast Time 112 SEC (23-33) H 68 SEC (23-33) H Intake and Output 04/27/19 04/28/19 19:00 07:00 Intake Total 611.68 ml 411.11 ml Balance 611.68 ml 411.11 ml Intake Oral 300 ml 200 ml IV Total 311.68 ml 211.11 ml # Voids 3 2 # Bowel Movements 3 Objective PHYSICAL EXAMINATION: GENERAL: The patient is a well developed, well nourished female who is intubated and sedated. HEENT: Eyes, pupils equal and responsive to light and accommodation. Extraocular movements are intact. NECK: Supple without lymphadenopathy. CHEST: Nasc canula; Few diffuse wheezes bilaterally. Otherwise, without wheezes or rales. CARDIOVASCULAR: Regular rhythm rate. S1-S2 are normal without murmurs, rubs, or gallops. ABDOMEN: NGT; Soft, nontender with decreased bowel sounds. No evidence of hepatosplenomegaly. no rebound or guarding noted. EXTREMITIES: Negative for clubbing, cyanosis, edema. RECTAL/GENITAL: Not performed. NEUROLOGIC: Cranial nerves II through XII are grossly intact without focal deficits. Assessment/Plan Assessment/Plan ASSESSMENT: This is an 84-year-old female. 1. Perforated gastric ulcer 2. Abdominal pain. 3. Nausea with vomiting. 4. Diabetes type 2. 5. Hypertension. 6. Post Op fever-resolved 7. Leukocytosis 8. Intraabdominal abscess TREATMENT: 1. Perforated gastric ulcer. A General Surgery consultation has been obtained with Dr. Sheth. S/P exploratory laparotomy 03/10/19=perforated Pre pyloric ulcer. Tolerating regular diet; NGT discontinued per surgery 2. Diabetes type 2. NovoLog sliding scale has been instituted. 3. Hypertension. The patient is currently hypotensive. 4. Respiratory failure. S/P extubation 03/12/19. A Pulmonary consultation has been obtained with Dr. Bibiana Pennington. 5. Med/surg 6. ABX=cefepime and flagyl for 6 weeks-end date 05/01/19 per ID 7. Surgical intervention on hold for intraabdominal abscess-see surgery note. Will require 6 weeks of ertapenem per ID 8. WBC now normal; Discharge planning 9. CT abdomen/pelvis results from 04/13/19=right adnexal phlegmon Zen Paige MD Apr 28, 2019 19:01
--- NOTE | 2019-04-28 19:30 | NUR ---
HAND-OFF: Report given to Orlando MOON. Patient in stable condition.
--- NOTE | 2019-04-28 19:31 | NUR ---
NURSE NOTES: Received patient in no apparent distress. A&OX4. IV site patent and intact. On heparin drip. Family members are at bedside. Bed in lowest position. Call light within reach. Will continue to monitor.
[2019-04-28 20:00] VITALS: BP 124/69
[2019-04-29] VITALS: BP 129/70
[2019-04-29 04:00] VITALS: BP 124/66
--- NOTE | 2019-04-29 04:50 | NUR ---
NURSE NOTES: PTT 75. No changed rate at this time.
[2019-04-29] MEDS: metroNIDAZOLE 500mg tab ORAL SCH ×3 (05:57→22:10)
[2019-04-29] MEDS: Heparin 25,000u/D5W 500ml 500 ML IV SCH (06:21)
--- NOTE | 2019-04-29 07:15 | NUR ---
HAND-OFF: Report given to Dion MOON.
--- NOTE | 2019-04-29 07:30 | NUR ---
NURSE NOTES: Patient lying in bed awake. No complain of pain or distress at this time. Surgical site intact and dry. IV dressing intact and dry and Heparin drip on going as ordered. Bed lowest position. Call light within reach. Will continue to monitor.
[2019-04-29 08:00] VITALS: BP 130/67
[2019-04-29] MEDS: Cefepime HCl 1 GM in D5W 55 ML IVPB SCH (08:38)
[2019-04-29 11:06] LABS: INR 1.1 (0.9-1.1)
--- NOTE | 2019-04-29 11:35 | NUR ---
HAND-OFF: Report given to Reina MOON. Patient in stable condition.
--- NOTE | 2019-04-29 11:37 | NUR ---
NURSE NOTES: Care taken over for pt . Report provided heparin drip to continue.
[2019-04-29 12:00] VITALS: BP 121/78
--- NOTE | 2019-04-29 12:15 | NUR ---
NURSE NOTES: Spoke to regarding blood sugar checking and new order received. Order read back and carried out.
--- NOTE | 2019-04-29 12:30 | Nephrology Progress Note ---
Assessment/Plan Problem List: (1) Perforated abdominal viscus (2) Hypokalemia (3) Hypomagnesemia (4) Diabetes mellitus (5) Anemia Assessment WBC rising Post lap on 03/10 Low K Low Phos Low Mag Anemia DM h/o HTN Plan add oral hypoglycemics for high BS DC IV change all to orals Mag and K and Phos IV as needed Anemia claudio Keep BP and BS in check per orders DC planning Subjective ROS Limited/Unobtainable: No Objective Objective Last 24 Hour Vital Signs Date Time Temp Pulse Resp B/P (MAP) Pulse Ox O2 Delivery O2 Flow Rate FiO2 04/29/19 09:00 Room Air Room Air 04/29/19 08:00 98.8 86 18 130/67 (88) 100 04/29/19 04:00 98.2 86 17 124/66 (85) 97 04/29/19 00:00 98.9 98 17 129/70 (89) 98 04/28/19 21:00 Room Air Room Air 04/28/19 20:00 98.2 97 17 124/69 (87) 97 04/28/19 16:00 98.2 98 20 114/77 (89) 99 Intake and Output 04/28/19 04/29/19 18:59 06:59 Intake Total 1178.2 ml 463.2 ml Balance 1178.2 ml 463.2 ml Intake Oral 900 ml 240 ml IV Total 278.2 ml 223.2 ml # Voids 2 Laboratory Tests 04/29/19 04:10: Activated Partial Thromboplast Time 75H 04/29/19 10:35: Prothrombin Time 12.0H, Prothromb Time International Ratio 1.1 Height (Feet): 5 Height (Inches): 0.00 Weight (Pounds): 102 General Appearance: no apparent distress Objective no change El Clark MD Apr 29, 2019 12:30
--- NOTE | 2019-04-29 12:43 | Infectious Diseases Prog Note ---
Assessment/Plan Assessment/Plan Fever, SP Leukocytosis, -S-p- Probable Sepsis- 2ry to likely intraabdominal abscess- ?source (post-op complication vs vice president tax or sigmoid origin) -04/13 Sp Unusual fluid and phlegmon changes seen in the right adnexal region. Comparison with prior study of 03/27/2019 is difficult, due to lack of IV contrast administration currently. However, there appears to be likely decreased discrete fluid but is perhaps slightly increased phlegmon component. In addition, the appendix appears distended with fluid currently but intact. The significance of this finding and he of the surrounding abnormalities is uncertain. There is also a tiny 13 mm collection in the right perirectal region which is unchanged Persistent distention of the endometrium with fluid Slightly increased infiltration of the omental fat adjacent to the distal greater curvature of the stomach without discrete fluid collection. This may represent progressive postsurgical scarring. 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 Right adnexal region irregular fluid collection, corresponding to findings reported on recent CT scan. This is contiguous with an immediately adjacent segment of bowel.This likewise corresponds to findings on recent CT. Note that the fluid collection and extent are better delineated on the prior study. Nonvisualized left ovary -CT abd/p: Markedly thickened and fluid-filled endometrium. 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 Complex multilobulated fluid collection with areas of enhancing soft tissue in the right adnexal region. This measures 5.5 x 7 x 3.9 cm. There is also a second tiny collection adjacent to the distal rectum. One possible etiology is, given the above finding, a tubo-ovarian abscess, related to retrograde propagation of endometritis. A second possibility is that this represents acute diverticulitis with peridiverticular abscess, given the close relationship with the distal sigmoid colon. A third possibility is this represents an abscess related to infected pelvic fluid from the prior gastric perforation, as the previous exam did demonstrate a small amount of free fluid in the pelvis. Finally, given the presence of the appendix (which isprominent in caliber) at the edge of the collection, this could represent perforated acute distal appendicitis. However, this is deemed less likely. Evidence of interim repair of previously demonstrated perforated gastric ulcer. No evidence of contrast leakage. No abnormal fluid collection at the operative site. Colonic diverticulosis. Slight rim enhancement of the gallbladder. Slight pericholecystic fluid. However, the gallbladder is nondistended, so doubt significance of this. Bilateral basilar pulmonary parenchymal groundglass opacity, likely on the basis of mild pulmonary edema Perforated pre-pyloric gastric ulcer -03/15 s/p UGI series: Negative for postoperative leak -03/10 SP 03/10 SP Exploratory Laparotomy, Abdominal washout. Partial omentectomy. Shane patch for repair of perforated pre-pyloric ulcer. -03/10 CT abd/p: Free intraperitoneal gas. Etiology not completely certain, but gas within and extending from the anterior gastric antral wall is suspicious for a perforated gastric ulcer. Perforated descending colon diverticulitis also possible but deemed much less likely. Free intraperitoneal fluid, presumably related to the above. Fatty liver. Basilar pulmonary parenchymal groundglass opacities. This could indicate pulmonary edema, among other possibilities. Subcentimeter low-attenuation renal lesions, too small to characterize, most likely benign simple cyst. No further follow-up necessary. 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 Acute encephalopathy, Sp -CT head: Chronic and age-related changes. Negative for acute intracranial bleed or mass effect VDRF, post-op; extubated 03/12 DARRON, SP Dm2 HTN Plan: -Cont Cefepime # 40 and PO Flagyl #35 for intraabdominal abscess while in house (end date 05/01/19), upon DC will may change to Invanz to complete the course - Monitor weekly CBC, CMP - Would not recommend PO abx in this case lack of cultures and unclear nature of the infection. -03/22 SP Fluconazole #10 -03/15 SP Zosyn #6 -03/10 SP IV Vancomycin #1, Ancef x1 -Monitor CBC/CMP, temperatures -wound care per surgical team -aspiration precautions Subjective Allergies: Coded Allergies: No Known Allergies (Unverified , 03/10/19) Subjective afebrile no leukocytosis ambulating and eating well no pain Objective Vital Signs Last 24 Hour Vital Signs Date Time Temp Pulse Resp B/P (MAP) Pulse Ox O2 Delivery O2 Flow Rate FiO2 04/29/19 09:00 Room Air Room Air 04/29/19 08:00 98.8 86 18 130/67 (88) 100 04/29/19 04:00 98.2 86 17 124/66 (85) 97 04/29/19 00:00 98.9 98 17 129/70 (89) 98 04/28/19 21:00 Room Air Room Air 04/28/19 20:00 98.2 97 17 124/69 (87) 97 04/28/19 16:00 98.2 98 20 114/77 (89) 99 Height (Feet): 5 Height (Inches): 0.00 Weight (Pounds): 102 Objective General appearance: alert, cooperative, no distress, appears stated age Head: Normocephalic, without obvious abnormality, atraumatic Eyes: conjunctivae/corneas clear. PERRL, EOM's intact. Fundi benign Throat: Lips, mucosa, and tongue normal. Teeth and gums normal Neck: supple, symmetrical, trachea midline, no adenopathy, thyroid: not enlarged, symmetric, no tenderness/mass/nodules, no carotid bruit and no JVD Lungs: clear to auscultation bilaterally Heart: regular rate and rhythm, S1, S2 normal, no murmur, click, rub or gallop Abdomen: soft, peritonitis with tender. Bowel sounds normal. No masses, no organomegaly Extremities: extremities normal, atraumatic, no cyanosis or edema Pulses: 2+ and symmetric Skin: Skin color, texture, turgor normal. No rashes or lesions Neurologic: Grossly normal Laboratory Tests Test 04/29/19 04:10 04/29/19 10:35 Activated Partial Thromboplast Time 75 SEC (23-33) H Prothrombin Time 12.0 SEC (9.30-11.50) H Prothromb Time International Ratio 1.1 (0.9-1.1) Current Medications Medications (Trade) Dose Ordered Sig/Shantelle Route PRN Reason Start Time Stop Time Status Last Admin Dose Admin Cefepime HCl 1 gm/ Dextrose 55 ml @ 110 mls/hr DAILY IVPB 03/30/19 09:00 05/01/19 10:00 04/29/19 08:38 Dextrose (Dextrose 50%) 25 ml Q30M PRN IV Hypoglycemia 04/29/19 12:30 05/29/19 12:29 Dextrose (Dextrose 50%) 50 ml Q30M PRN IV Hypoglycemia 04/29/19 12:30 05/29/19 12:29 Heparin Sodium/ Dextrose 500 ml @ 18.6 mls/hr ADJUST PER PROTOCOL IV 04/28/19 05:30 05/28/19 05:29 04/29/19 06:21 Insulin Aspart (NovoLOG) BEFORE MEALS AND HS SUBQ 04/29/19 13:30 05/29/19 13:29 Magnesium Hydroxide (Mom) 30 ml DAILYPRN PRN ORAL Constipation 04/01/19 17:30 05/01/19 17:29 04/01/19 17:42 Metronidazole (Flagyl) 500 mg Q8HR ORAL 03/23/19 14:00 05/01/19 23:59 04/29/19 05:57 Potassium Chloride (K-Dur) 40 meq DAILY ORAL 04/24/19 11:00 05/24/19 10:59 04/29/19 08:38 Warfarin Sodium (Coumadin per pharmacy) 1 ea DAILY PRN MISC Per rx protocol 04/29/19 07:30 05/29/19 07:29 Warfarin Sodium (Coumadin) 5 mg COUMADIN ORAL 04/29/19 17:00 04/29/19 18:00 Janette Stallworth M.D. Apr 29, 2019 12:43
[2019-04-29] MEDS: NovoLOG Insulin Flexpen SUBQ SCH ×3 (13:18→21:00)
--- NOTE | 2019-04-29 13:30 | NUR ---
NURSE NOTES: Dr Silva phoned due to pt refusal of meals. Pt refused meal refused substitute, states she is tired of eating meat. Menu reviewed with pt, all vegetables options given pt does not eat eggs nor hot cereal. Pt blood sugar is 177 made aware that insulin was not given. Gave okay . Same occurrence at dinner pt did not eat dinner refused substitute, did hydrate self , stated she is tired of everything on menu. Pt has pending discharge possibly for the of this month. Plan of care will be followed
[2019-04-29 16:00] VITALS: BP 128/76
--- NOTE | 2019-04-29 16:21 | Surgery Progress Note ---
Surgery Progress Note Subjective Procedure Performed ex lap with imelda patch, washout, omentectomy Symptoms: improved Objective Last 24 Hour Vital Signs Date Time Temp Pulse Resp B/P (MAP) Pulse Ox O2 Delivery O2 Flow Rate FiO2 04/29/19 12:00 97.8 78 18 121/78 (92) 04/29/19 09:00 Room Air Room Air 04/29/19 08:00 98.8 86 18 130/67 (88) 100 04/29/19 04:00 98.2 86 17 124/66 (85) 97 04/29/19 00:00 98.9 98 17 129/70 (89) 98 04/28/19 21:00 Room Air Room Air 04/28/19 20:00 98.2 97 17 124/69 (87) 97 I&O Intake and Output 04/28/19 04/29/19 19:00 07:00 Intake Total 1196.8 ml 444.6 ml Balance 1196.8 ml 444.6 ml Intake Oral 900 ml 240 ml IV Total 296.8 ml 204.6 ml # Voids 2 Dressing: dry Wound: clean Cardiovascular: RSR Respiratory: clear Abdomen: soft, non-tender, present bowel sounds Extremities: no edema, no cyanosis Laboratory Tests Test 04/29/19 04:10 04/29/19 10:35 Activated Partial Thromboplast Time 75 SEC (23-33) H Prothrombin Time 12.0 SEC (9.30-11.50) H Prothromb Time International Ratio 1.1 (0.9-1.1) Assessment Post-op Diagnosis perforated prepyloric gastric ulcer Plan Problems: (1) Peritonitis Assessment & Plan: 84F with perforated abdominal viscus likely gastric perforation based on CT findings s/p imelda patch recovering labs improved exam improved advance diet anna removed CT and US noted repeat CT noted Unusual fluid and phlegmon changes seen in the right adnexal region. Comparison with prior study of 03/27/2019 is difficult, due to lack of IV contrast administration currently. However, there appears to be likely decreased discrete fluid but is perhaps slightly increased phlegmon component. In addition, the appendix appears distended with fluid currently but intact. The significance of this finding and he of the surrounding abnormalities is uncertain. There is also a tiny 13 mm collection in the right perirectal region which is unchanged Persistent distention of the endometrium with fluid Slightly increased infiltration of the omental fat adjacent to the distal greater curvature of the stomach without discrete fluid collection. This may represent progressive postsurgical scarring. Other findings as noted, including degenerative spondylosis, left hip prosthesis , old healed left inferior pubic ramus fracture abd fluid collection possible abscess unable to drain via IR can consider surgical drainage but would be high risk and with morbidity and mortality risk given age and medical condition family aware plan for medical therapy with IV abx given stable improving with medical management labs improved exam benign will monitor thank you (2) Perforated abdominal viscus Mike Sheth Apr 29, 2019 16:21
[2019-04-29] MEDS ORDERED: Warfarin Sodium 5mg ORAL SCH (17:00)
--- NOTE | 2019-04-29 17:38 | Internal Med Progress Note ---
Subjective Physician Name Marcos Silva Attending Physician Marcos Silva MD Current Medications Medications (Trade) Dose Ordered Sig/Shantelle Route PRN Reason Start Time Stop Time Status Last Admin Dose Admin Cefepime HCl 1 gm/ Dextrose 55 ml @ 110 mls/hr DAILY IVPB 03/30/19 09:00 05/01/19 10:00 04/29/19 08:38 Dextrose (Dextrose 50%) 25 ml Q30M PRN IV Hypoglycemia 04/29/19 12:30 05/29/19 12:29 Dextrose (Dextrose 50%) 50 ml Q30M PRN IV Hypoglycemia 04/29/19 12:30 05/29/19 12:29 Heparin Sodium/ Dextrose 500 ml @ 18.6 mls/hr ADJUST PER PROTOCOL IV 04/28/19 05:30 05/28/19 05:29 04/29/19 06:21 Insulin Aspart (NovoLOG) BEFORE MEALS AND HS SUBQ 04/29/19 13:30 05/29/19 13:29 Magnesium Hydroxide (Mom) 30 ml DAILYPRN PRN ORAL Constipation 04/01/19 17:30 05/01/19 17:29 04/01/19 17:42 Metronidazole (Flagyl) 500 mg Q8HR ORAL 03/23/19 14:00 05/01/19 23:59 04/29/19 14:59 Potassium Chloride (K-Dur) 40 meq DAILY ORAL 04/24/19 11:00 05/24/19 10:59 04/29/19 08:38 Warfarin Sodium (Coumadin per pharmacy) 1 ea DAILY PRN MISC Per rx protocol 04/29/19 07:30 05/29/19 07:29 Warfarin Sodium (Coumadin) 5 mg COUMADIN ORAL 04/29/19 17:00 04/29/19 18:00 Allergies: Coded Allergies: No Known Allergies (Unverified , 03/10/19) Subjective awake, alert, responsive, sitting up in the chair, denies any abdominal pain. Objective Last Vital Signs Date Time Temp Pulse Resp B/P (MAP) Pulse Ox O2 Delivery O2 Flow Rate FiO2 04/29/19 12:00 97.8 78 18 121/78 (92) 04/29/19 09:00 Room Air Room Air 04/29/19 08:00 100 Laboratory Tests Test 04/29/19 04:10 04/29/19 10:35 Activated Partial Thromboplast Time 75 SEC (23-33) H Prothrombin Time 12.0 SEC (9.30-11.50) H Prothromb Time International Ratio 1.1 (0.9-1.1) Intake and Output 04/28/19 04/29/19 19:00 07:00 Intake Total 1196.8 ml 444.6 ml Balance 1196.8 ml 444.6 ml Intake Oral 900 ml 240 ml IV Total 296.8 ml 204.6 ml # Voids 2 Objective General: No acute distress, awake and alert HEENT: NCAT, sclera anicteric, PERRL, EOMI. Neck: Supple, no significant jugular venous distention, Lungs: clear to auscultation bilaterally, no Wheeze or Rales. Heart: Regular rate and rhythm, normal S1/S2, no murmur Abdomen: soft, not tender, Not distended. midline surgical incision intact. Extremities: No Cyanosis , clubbing , Trace left ankle edema. Neuro: A&O x 3, Able to move all extremities Skin: warm, no rash. Assessment/Plan Assessment/Plan ASSESSMENT: This is an 84-year-old female. 1. Perforated abdominal viscus S/P Exploratory laparotomy, Partial omentectomy, and Shane patch for repair of perforated pre-pyloric ulcer (03/10/2019). 2. Acute respiratory Failure. 3. Nausea with vomiting. 4. Diabetes type 2. 5. Hypertension. 6. Acute thrombus in the popliteal to the calf ( posterior, anterior and peroneal) veins. TREATMENT: 1. Perforated abdominal viscus. A General Surgery consultation has been obtained with Dr. Sheth. S/P Exploratory laparotomy, Partial omentectomy, and Shane patch for repair of perforated pre-pyloric ulcer (03/10/2019). 2. Diabetes type 2. NovoLog sliding scale has been instituted. 3. Hypertension. The patient is currently hypotensive. 4. Respiratory failure. The patient is currently intubated in the intensive care unit. A Pulmonary consultation has been obtained with Dr. Bibiana Pennington. Abx: Cefepime and Flagyl till 05/01/2019 On Coumadin Marcos Silva MD Apr 29, 2019 17:38
--- NOTE | 2019-04-29 18:00 | NUR ---
NURSE NOTES: Dr Silva here seen pt earlier in shift NNO orders from Dr Silva at this time. Correction in early entry for dinner pt did not eat dinner blood sugar 141 mg/dl no coverage given. Refused substitute, Dr montoya
--- NOTE | 2019-04-29 20:11 | NUR ---
HAND-OFF: Report given to Dre MOON informed of pending labs for AM current heparin drip oder. No signs of bleeding , or echymosis noted . Informed that pt is continent and requires assistance ambualtion for bathroom needs, uses walker. Keep call light in reach .
--- NOTE | 2019-04-29 22:00 | NUR ---
NURSES NOTE: Received patient in room, sitting in chair at beginning of shift. Patient is alert and oriented x3, no signs or symptoms of distress. Patient denies pain. Breathing pattern is unlabored and even. VS within normal limits. All due meds given. Pt on current heparin drip at 18.6 ml/hr. BLE non-warm to touch. Morning labs will be reviewed and heparin adjusted accordingly if necessary. Pt reminded to avoid constant pressure on sacral area. Call light within reach, bed at lowest level. Will continue to monitor.
[2019-04-30] VITALS (12 sets, daily range): BP systolic 99–148; BP diastolic 53–81
[2019-04-30 04:50] LABS: BASOPHILS % (AUTO) 2.4 % (0.0-2.0); EOSINOPHILS % (AUTO) 2.1 % (0.0-3.0); HEMATOCRIT 32.9 % (37.0-47.0); HEMOGLOBIN 10.5 G/DL (12.0-16.0); LYMPHOCYTES % (AUTO) 43.3 % (20.0-45.0); MEAN CORPUSCULAR VOLUME 81 FL (80-99); MONOCYTES % (AUTO) 17.4 % (1.0-10.0); NEUTROPHILS % (AUTO) 34.8 % (45.0-75.0); PLATELET COUNT 202 K/UL (150-450); RED BLOOD COUNT 4.08 M/UL (4.20-5.40); RED CELL DISTRIBUTION WIDTH 15.9 % (11.6-14.8); WHITE BLOOD COUNT 3.6 K/UL (4.8-10.8)
[2019-04-30 04:52] LABS: INR 1.2 (0.9-1.1)
[2019-04-30 04:53] LABS: ALANINE AMINOTRANSFERASE 17 U/L (12-78); ALBUMIN 2.9 G/DL (3.4-5.0); ALBUMIN/GLOBULIN RATIO 0.8 (1.0-2.7); ALKALINE PHOSPHATASE 92 U/L (46-116); ANION GAP 9 mmol/L (5-15); ASPARTATE AMINO TRANSFERASE 21 U/L (15-37); BILIRUBIN,TOTAL 0.4 MG/DL (0.2-1.0); BLOOD UREA NITROGEN 9 mg/dL (7-18); CALCIUM 9.4 MG/DL (8.5-10.1); CARBON DIOXIDE 24 MMOL/L (21-32); CHLORIDE 106 MMOL/L (98-107); CREATININE 0.6 MG/DL (0.55-1.30); PHOSPHORUS 4.3 MG/DL (2.5-4.9); POTASSIUM 3.9 MMOL/L (3.5-5.1); SODIUM 139 MMOL/L (136-145)
[2019-04-30] MEDS: metroNIDAZOLE 500mg tab ORAL SCH ×3 (05:18→21:41)
[2019-04-30] MEDS: Heparin 25,000u/D5W 500ml 500 ML IV SCH ×3 (05:24→22:44)
[2019-04-30] MEDS: NovoLOG Insulin Flexpen SUBQ SCH ×3 (06:04→21:40)
--- NOTE | 2019-04-30 07:42 | NUR ---
HAND-OFF: Report given to Nurse Yoselin Rubi Patient in stable condition.
--- NOTE | 2019-04-30 08:09 | NUR ---
NURSE NOTES: Pt assisted to restroom, with walker. Remains, on heparin at 18.6 . Verbalized stiffness this am , encouraged to move extremities while seated. Call light in reach
[2019-04-30] MEDS: Cefepime HCl 1 GM in D5W 55 ML IVPB SCH (08:23)
--- NOTE | 2019-04-30 08:46 | Nephrology Progress Note ---
Assessment/Plan Problem List: (1) Perforated abdominal viscus (2) Hypokalemia (3) Hypomagnesemia (4) Diabetes mellitus (5) Anemia Assessment WBC rising Post lap on 03/10 Low K Low Phos Low Mag Anemia DM h/o HTN Plan change all to orals Mag and K and Phos IV as needed Keep BP and BS in check per orders DC planning Subjective ROS Limited/Unobtainable: No Objective Objective Last 24 Hour Vital Signs Date Time Temp Pulse Resp B/P (MAP) Pulse Ox O2 Delivery O2 Flow Rate FiO2 04/30/19 04:00 97.4 100 18 136/75 (95) 97 04/30/19 00:00 99.1 92 17 148/69 (95) 97 04/29/19 21:00 Room Air Room Air 04/29/19 16:00 97.7 77 18 128/76 (93) 97 04/29/19 12:00 97.8 78 18 121/78 (92) 04/29/19 09:00 Room Air Room Air Intake and Output 04/29/19 04/30/19 19:00 07:00 Intake Total 1183.2 ml 426.0 ml Balance 1183.2 ml 426.0 ml Intake Oral 960 ml 240 ml IV Total 223.2 ml 186.0 ml # Voids 1 Laboratory Tests 04/29/19 10:35: Prothrombin Time 12.0H, Prothromb Time International Ratio 1.1 04/30/19 04:00: Sodium Level 139, Potassium Level 3.9, Chloride Level 106, Carbon Dioxide Level 24, Anion Gap 9, Blood Urea Nitrogen 9, Creatinine 0.6, Estimat Glomerular Filtration Rate , Glucose Level 147H, Calcium Level 9.4, Phosphorus Level 4.3, Magnesium Level 1.1L, Total Bilirubin 0.4, Aspartate Amino Transf (AST/SGOT) 21 , Alanine Aminotransferase (ALT/SGPT) 17, Alkaline Phosphatase 92, C-Reactive Protein, Quantitative 0.6, Total Protein 6.6, Albumin 2.9L, Globulin 3.7, Albumin/Globulin Ratio 0.8L 04/30/19 04:10: Prothrombin Time 12.6H, Prothromb Time International Ratio 1.2H, White Blood Count 3.6L, Red Blood Count 4.08L, Hemoglobin 10.5L, Hematocrit 32.9L, Mean Corpuscular Volume 81, Mean Corpuscular Hemoglobin 25.7L, Mean Corpuscular Hemoglobin Concent 31.8L, Red Cell Distribution Width 15.9H, Platelet Count 202 , Mean Platelet Volume 7.5, Neutrophils (%) (Auto) 34.8L, Lymphocytes (%) (Auto ) 43.3, Monocytes (%) (Auto) 17.4H, Eosinophils (%) (Auto) 2.1, Basophils (%) ( Auto) 2.4H, Erythrocyte Sedimentation Rate 55H, Activated Partial Thromboplast Time 77H, Hemoglobin A1c 6.9H, Pro-B-Type Natriuretic Peptide 131H Height (Feet): 5 Height (Inches): 0.00 Weight (Pounds): 102 General Appearance: no apparent distress Objective no change El Clark MD Apr 30, 2019 08:46
[2019-04-30] MEDS: Magnesium Oxide 400mg tab ORAL SCH ×3 (09:47→18:43)
--- NOTE | 2019-04-30 14:55 | NUR ---
CASE MANAGEMENT: REVIEW 04/30/2019 SI:PERFORATED VISCOUS. VSS LABS: WBC 2.6 GLU 147 MG 1.1 IS: CEFEPIME IV QD KDUR PO QD INSULIN ASPART SUBQ AC/HS HEPARIN DRIP PER PROTOCOL FLAGYL PO Q8H MED/SURG STATUS
--- NOTE | 2019-04-30 15:49 | NUR ---
NURSE NOTES: Family member is at bedside. Pt in good spirits. Remains on heparin with no changes, Proved with IV magnesium for low magnesium level . Both IV lines to left and right forearm remain patent.
--- NOTE | 2019-04-30 15:49 | Internal Med Progress Note ---
Subjective Date of Service: Apr 30, 2019 Physician Name Zen Paige Attending Physician Marcos Silva MD Current Medications Medications (Trade) Dose Ordered Sig/Shantelle Route PRN Reason Start Time Stop Time Status Last Admin Dose Admin Cefepime HCl 1 gm/ Dextrose 55 ml @ 110 mls/hr DAILY IVPB 03/30/19 09:00 05/01/19 10:00 04/30/19 08:23 Dextrose (Dextrose 50%) 25 ml Q30M PRN IV Hypoglycemia 04/29/19 12:30 05/29/19 12:29 Dextrose (Dextrose 50%) 50 ml Q30M PRN IV Hypoglycemia 04/29/19 12:30 05/29/19 12:29 Heparin Sodium/ Dextrose 500 ml @ 18.6 mls/hr ADJUST PER PROTOCOL IV 04/28/19 05:30 05/28/19 05:29 04/30/19 05:24 Insulin Aspart (NovoLOG) BEFORE MEALS AND HS SUBQ 04/29/19 13:30 05/29/19 13:29 04/30/19 12:15 Magnesium Hydroxide (Mom) 30 ml DAILYPRN PRN ORAL Constipation 04/01/19 17:30 05/01/19 17:29 04/01/19 17:42 Magnesium Oxide (Mag-Ox 400mg) 400 mg THREE TIMES A DAY ORAL 04/30/19 09:00 05/30/19 08:59 04/30/19 14:27 Metronidazole (Flagyl) 500 mg Q8HR ORAL 03/23/19 14:00 05/01/19 23:59 04/30/19 14:27 Potassium Chloride (K-Dur) 40 meq DAILY ORAL 04/24/19 11:00 05/24/19 10:59 04/30/19 08:24 Warfarin Sodium (Coumadin per pharmacy) 1 ea DAILY PRN MISC Per rx protocol 04/29/19 07:30 05/29/19 07:29 Allergies: Coded Allergies: No Known Allergies (Unverified , 03/10/19) ROS Limited/Unobtainable: No Constitutional: Reports: no symptoms HEENT: Reports: no symptoms Cardiovascular: Reports: no symptoms Respiratory: Reports: no symptoms Gastrointestinal/Abdominal: Reports: no symptoms Genitourinary: Reports: no symptoms Neurologic/Psychiatric: Reports: no symptoms Subjective 84 YO F admitted with abdominal pain. S/P exploratory laparotomy 03/10/19. Now intra-abdominal abscess. Cover for Int Marcus-Dr Silva. Objective Last Vital Signs Date Time Temp Pulse Resp B/P (MAP) Pulse Ox O2 Delivery O2 Flow Rate FiO2 04/30/19 12:00 98.1 72 18 126/80 (95) 97 04/30/19 09:00 Room Air Room Air Laboratory Tests Test 04/30/19 04:00 04/30/19 04:10 Sodium Level 139 MMOL/L (136-145) Potassium Level 3.9 MMOL/L (3.5-5.1) Chloride Level 106 MMOL/L (98-107) Carbon Dioxide Level 24 MMOL/L (21-32) Anion Gap 9 mmol/L (5-15) Blood Urea Nitrogen 9 mg/dL (7-18) Creatinine 0.6 MG/DL (0.55-1.30) Estimat Glomerular Filtration Rate mL/min (>60) Glucose Level 147 MG/DL (74-106) H Calcium Level 9.4 MG/DL (8.5-10.1) Phosphorus Level 4.3 MG/DL (2.5-4.9) Magnesium Level 1.1 MG/DL (1.8-2.4) L Total Bilirubin 0.4 MG/DL (0.2-1.0) Aspartate Amino Transf (AST/SGOT) 21 U/L (15-37) Alanine Aminotransferase (ALT/SGPT) 17 U/L (12-78) Alkaline Phosphatase 92 U/L (46-116) C-Reactive Protein, Quantitative 0.6 mg/dL (0.00-0.90) Total Protein 6.6 G/DL (6.4-8.2) Albumin 2.9 G/DL (3.4-5.0) L Globulin 3.7 g/dL Albumin/Globulin Ratio 0.8 (1.0-2.7) L White Blood Count 3.6 K/UL (4.8-10.8) L Red Blood Count 4.08 M/UL (4.20-5.40) L Hemoglobin 10.5 G/DL (12.0-16.0) L Hematocrit 32.9 % (37.0-47.0) L Mean Corpuscular Volume 81 FL (80-99) Mean Corpuscular Hemoglobin 25.7 PG (27.0-31.0) L Mean Corpuscular Hemoglobin Concent 31.8 G/DL (32.0-36.0) L Red Cell Distribution Width 15.9 % (11.6-14.8) H Platelet Count 202 K/UL (150-450) Mean Platelet Volume 7.5 FL (6.5-10.1) Neutrophils (%) (Auto) 34.8 % (45.0-75.0) L Lymphocytes (%) (Auto) 43.3 % (20.0-45.0) Monocytes (%) (Auto) 17.4 % (1.0-10.0) H Eosinophils (%) (Auto) 2.1 % (0.0-3.0) Basophils (%) (Auto) 2.4 % (0.0-2.0) H Erythrocyte Sedimentation Rate 55 MM/HR (0-30) H Prothrombin Time 12.6 SEC (9.30-11.50) H Prothromb Time International Ratio 1.2 (0.9-1.1) H Activated Partial Thromboplast Time 77 SEC (23-33) H Hemoglobin A1c 6.9 % (4.3-6.0) H Pro-B-Type Natriuretic Peptide 131 pg/mL (0-125) H Intake and Output 04/29/19 04/30/19 18:59 06:59 Intake Total 1164.6 ml 444.6 ml Balance 1164.6 ml 444.6 ml Intake Oral 960 ml 240 ml IV Total 204.6 ml 204.6 ml # Voids 1 Objective PHYSICAL EXAMINATION: GENERAL: The patient is a well developed, well nourished female who is intubated and sedated. HEENT: Eyes, pupils equal and responsive to light and accommodation. Extraocular movements are intact. NECK: Supple without lymphadenopathy. CHEST: Nasc canula; Few diffuse wheezes bilaterally. Otherwise, without wheezes or rales. CARDIOVASCULAR: Regular rhythm rate. S1-S2 are normal without murmurs, rubs, or gallops. ABDOMEN: NGT; Soft, nontender with decreased bowel sounds. No evidence of hepatosplenomegaly. no rebound or guarding noted. EXTREMITIES: Negative for clubbing, cyanosis, edema. RECTAL/GENITAL: Not performed. NEUROLOGIC: Cranial nerves II through XII are grossly intact without focal deficits. Assessment/Plan Assessment/Plan ASSESSMENT: This is an 84-year-old female. 1. Perforated gastric ulcer 2. Abdominal pain. 3. Nausea with vomiting. 4. Diabetes type 2. 5. Hypertension. 6. Post Op fever-resolved 7. Leukocytosis 8. Intraabdominal abscess TREATMENT: 1. Perforated gastric ulcer. A General Surgery consultation has been obtained with Dr. Sheth. S/P exploratory laparotomy 03/10/19=perforated Pre pyloric ulcer. Tolerating regular diet; NGT discontinued per surgery 2. Diabetes type 2. NovoLog sliding scale has been instituted. 3. Hypertension. The patient is currently hypotensive. 4. Respiratory failure. S/P extubation 03/12/19. A Pulmonary consultation has been obtained with Dr. Bibiana Pennington. 5. Med/surg 6. ABX=cefepime and flagyl for 6 weeks-end date 05/01/19 per ID 7. Surgical intervention on hold for intraabdominal abscess-see surgery note. Will require 6 weeks of ertapenem per ID 8. WBC now normal; Discharge planning 9. CT abdomen/pelvis results from 04/13/19=right adnexal phlegmon Zen Paige MD Apr 30, 2019 15:49
--- NOTE | 2019-04-30 16:27 | NUR ---
Dr Silva called pt experiencing was in hallway and stated she could not walk, casualty underwriter was standing behind pt while being escorted to the floor pt began having a seizure , Drug Abuse Program Coordinator called, Dr gave orders for stat CT to the head with and without contrast. Also gave orders for Ativan 1 mg iv q 4 hours prn for seizure activity
--- NOTE | 2019-04-30 16:30 | NUR ---
NURSE NOTES: Pt was in hallway ambulating with her son, Son called out for help. Enterprise Systems Manager and coworker went to pt . Pt noted holding walker, but knees on the floor. Enterprise Systems Manager stood behind the pt , pt verbalized in Albanian that she did not know what happened, she just starting shaking, and stated she can not stand. " in Albanian pt stated I cant , assisted to the ground in a seated position. Hogshead Roller called. Pt in guarded, condition. Dr Silva called while pt was in the care of Hogshead Roller. Pt transferred to ICU
--- NOTE | 2019-04-30 16:35 | NUR ---
NURSE NOTES: Pt eyes are open , turning head while name is called. Assisted onto gurney by easy glide plus 4 assist. research contracts supervisor stated pt was experiencing tremors, and not in active sz. orders was to only give Ativan if pt was in active sz. Also gave orders for cbc, and bmp
--- NOTE | 2019-04-30 16:40 | NUR ---
NURSE NOTES: Patient transferred from 3E to ICU due to weakness. This RN went to 3E to assess patient, patient did not fall but was assisted to the ground. Son said patient wanted to walk with him in the hallway and patient suddenly reports, "Oh my god, I feel weak. I can't stand," and was gradually assisted to the ground by son. Son reports patient did not hit her head on anything. Vital signs: BP 143/78, HR 113, Spo2 100%, RR 18, T 98.7, no sign of distress. Blood sugar 167 mg/dl. Heparin drip stopped. Upon assessment after incident, patient was able to open/track eyes but non-verbal. Right pupil slightly more sluggish than left pupil. Able to follow simple commands. Bilateral hand strength +3, bilateral legs strength +2. No drooping on one side of face noted. IV site on RFA and LFA 22G, patent and asymptomatic. Dr. Silva was notified by nurse, transfer to ICU, stat head ct w/wo contrast, ativan 1mg q4hrs PRN seizures. Bilateral legs are +2 edematous. No skin issues. Will continue plan of care.
[2019-04-30] MEDS ORDERED: Omnipaque-300 100ml vial INJ PRN ×2 (17:00→17:15)
[2019-04-30] MEDS ORDERED: Warfarin Sodium 5mg ORAL SCH ×2 (17:00→18:00)
--- NOTE | 2019-04-30 17:15 | NUR ---
NURSE NOTES: Escorted patient to CT
[2019-04-30] MEDS ORDERED: Milk of Magnesia 30ml Ud ORAL PRN (17:30)
--- NOTE | 2019-04-30 17:44 | Infectious Diseases Prog Note ---
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 Comparison with prior study of 03/27/2019 is difficult, due to lack of IV contrast administration currently. However, there appears to be likely decreased discrete fluid but is perhaps slightly increased phlegmon component. In addition, the appendix appears distended with fluid currently but intact. The significance of this finding and he of the surrounding abnormalities is uncertain. There is also a tiny 13 mm collection in the right perirectal region which is unchanged Persistent distention of the endometrium with fluid Slightly increased infiltration of the omental fat adjacent to the distal greater curvature of the stomach without discrete fluid collection. This may represent progressive postsurgical scarring. 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 Right adnexal region irregular fluid collection, corresponding to findings reported on recent CT scan. This is contiguous with an immediately adjacent segment of bowel.This likewise corresponds to findings on recent CT. Note that the fluid collection and extent are better delineated on the prior study. Nonvisualized left ovary -CT abd/p: Markedly thickened and fluid-filled endometrium. 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 Complex multilobulated fluid collection with areas of enhancing soft tissue in the right adnexal region. This measures 5.5 x 7 x 3.9 cm. There is also a second tiny collection adjacent to the distal rectum. One possible etiology is, given the above finding, a tubo-ovarian abscess, related to retrograde propagation of endometritis. A second possibility is that this represents acute diverticulitis with peridiverticular abscess, given the close relationship with the distal sigmoid colon. A third possibility is this represents an abscess related to infected pelvic fluid from the prior gastric perforation, as the previous exam did demonstrate a small amount of free fluid in the pelvis. Finally, given the presence of the appendix (which isprominent in caliber) at the edge of the collection, this could represent perforated acute distal appendicitis. However, this is deemed less likely. Evidence of interim repair of previously demonstrated perforated gastric ulcer. No evidence of contrast leakage. No abnormal fluid collection at the operative site. Colonic diverticulosis. Slight rim enhancement of the gallbladder. Slight pericholecystic fluid. However, the gallbladder is nondistended, so doubt significance of this. Bilateral basilar pulmonary parenchymal groundglass opacity, likely on the basis of mild pulmonary edema Perforated pre-pyloric gastric ulcer -03/15 s/p UGI series: Negative for postoperative leak -03/10 SP 03/10 SP Exploratory Laparotomy, Abdominal washout. Partial omentectomy. Shane patch for repair of perforated pre-pyloric ulcer. -03/10 CT abd/p: Free intraperitoneal gas. Etiology not completely certain, but gas within and extending from the anterior gastric antral wall is suspicious for a perforated gastric ulcer. Perforated descending colon diverticulitis also possible but deemed much less likely. Free intraperitoneal fluid, presumably related to the above. Fatty liver. Basilar pulmonary parenchymal groundglass opacities. This could indicate pulmonary edema, among other possibilities. Subcentimeter low-attenuation renal lesions, too small to characterize, most likely benign simple cyst. No further follow-up necessary. 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 Acute encephalopathy, Sp -CT head: Chronic and age-related changes. Negative for acute intracranial bleed or mass effect VDRF, post-op; extubated 03/12 DARRON, SP Dm2 HTN Plan: -Will d/c Cefepime # 41 in case patient had seizure and this medication contributing and that she only needed one more dose tomorrow. -Continue PO Flagyl #36 for intraabdominal abscess while in house (end date ) -03/22 SP Fluconazole #10 -03/15 SP Zosyn #6 -03/10 SP IV Vancomycin #1, Ancef x1 -f/u CT brain -Monitor CBC/CMP, temperatures -wound care per surgical team -aspiration precautions -EEG -Neuro eval Subjective Allergies: Coded Allergies: No Known Allergies (Unverified , 03/10/19) Subjective patient transferred to ICU after feeling weak and passing out while walking on the hallway of med surg- there is suspicion for seizure. afebrile no leukocytosis Objective Vital Signs Last 24 Hour Vital Signs Date Time Temp Pulse Resp B/P (MAP) Pulse Ox O2 Delivery O2 Flow Rate FiO2 04/30/19 12:00 98.1 72 18 126/80 (95) 97 04/30/19 09:00 Room Air Room Air 04/30/19 08:00 97.7 97 18 125/77 (93) 04/30/19 04:00 97.4 100 18 136/75 (95) 97 04/30/19 00:00 99.1 92 17 148/69 (95) 97 04/29/19 21:00 Room Air Room Air Height (Feet): 5 Height (Inches): 0.00 Weight (Pounds): 102 Objective General appearance: alert, cooperative, no distress, appears stated age Head: Normocephalic, without obvious abnormality, atraumatic Eyes: conjunctivae/corneas clear. PERRL, EOM's intact. Fundi benign Throat: Lips, mucosa, and tongue normal. Teeth and gums normal Neck: supple, symmetrical, trachea midline, no adenopathy, thyroid: not enlarged, symmetric, no tenderness/mass/nodules, no carotid bruit and no JVD Lungs: clear to auscultation bilaterally Heart: regular rate and rhythm, S1, S2 normal, no murmur, click, rub or gallop Abdomen: soft, peritonitis with tender. Bowel sounds normal. No masses, no organomegaly Extremities: extremities normal, atraumatic, no cyanosis or edema Pulses: 2+ and symmetric Skin: Skin color, texture, turgor normal. No rashes or lesions Neurologic: Grossly normal Laboratory Tests Test 04/30/19 04:00 04/30/19 04:10 Sodium Level 139 MMOL/L (136-145) Potassium Level 3.9 MMOL/L (3.5-5.1) Chloride Level 106 MMOL/L (98-107) Carbon Dioxide Level 24 MMOL/L (21-32) Anion Gap 9 mmol/L (5-15) Blood Urea Nitrogen 9 mg/dL (7-18) Creatinine 0.6 MG/DL (0.55-1.30) Estimat Glomerular Filtration Rate mL/min (>60) Glucose Level 147 MG/DL (74-106) H Calcium Level 9.4 MG/DL (8.5-10.1) Phosphorus Level 4.3 MG/DL (2.5-4.9) Magnesium Level 1.1 MG/DL (1.8-2.4) L Total Bilirubin 0.4 MG/DL (0.2-1.0) Aspartate Amino Transf (AST/SGOT) 21 U/L (15-37) Alanine Aminotransferase (ALT/SGPT) 17 U/L (12-78) Alkaline Phosphatase 92 U/L (46-116) C-Reactive Protein, Quantitative 0.6 mg/dL (0.00-0.90) Total Protein 6.6 G/DL (6.4-8.2) Albumin 2.9 G/DL (3.4-5.0) L Globulin 3.7 g/dL Albumin/Globulin Ratio 0.8 (1.0-2.7) L White Blood Count 3.6 K/UL (4.8-10.8) L Red Blood Count 4.08 M/UL (4.20-5.40) L Hemoglobin 10.5 G/DL (12.0-16.0) L Hematocrit 32.9 % (37.0-47.0) L Mean Corpuscular Volume 81 FL (80-99) Mean Corpuscular Hemoglobin 25.7 PG (27.0-31.0) L Mean Corpuscular Hemoglobin Concent 31.8 G/DL (32.0-36.0) L Red Cell Distribution Width 15.9 % (11.6-14.8) H Platelet Count 202 K/UL (150-450) Mean Platelet Volume 7.5 FL (6.5-10.1) Neutrophils (%) (Auto) 34.8 % (45.0-75.0) L Lymphocytes (%) (Auto) 43.3 % (20.0-45.0) Monocytes (%) (Auto) 17.4 % (1.0-10.0) H Eosinophils (%) (Auto) 2.1 % (0.0-3.0) Basophils (%) (Auto) 2.4 % (0.0-2.0) H Erythrocyte Sedimentation Rate 55 MM/HR (0-30) H Prothrombin Time 12.6 SEC (9.30-11.50) H Prothromb Time International Ratio 1.2 (0.9-1.1) H Activated Partial Thromboplast Time 77 SEC (23-33) H Hemoglobin A1c 6.9 % (4.3-6.0) H Pro-B-Type Natriuretic Peptide 131 pg/mL (0-125) H Current Medications Medications (Trade) Dose Ordered Sig/Shantelle Route PRN Reason Start Time Stop Time Status Last Admin Dose Admin Cefepime HCl 1 gm/ Dextrose 55 ml @ 110 mls/hr DAILY IVPB 05/01/19 09:00 05/01/19 10:00 Dextrose (Dextrose 50%) 25 ml Q30M PRN IV Hypoglycemia 04/30/19 17:30 05/29/19 12:29 Dextrose (Dextrose 50%) 50 ml Q30M PRN IV Hypoglycemia 04/30/19 17:30 05/29/19 12:29 Heparin Sodium/ Dextrose 500 ml @ 18.6 mls/hr ADJUST PER PROTOCOL IV 04/30/19 17:15 05/30/19 17:14 Insulin Aspart (NovoLOG) BEFORE MEALS AND HS SUBQ 04/30/19 21:00 05/29/19 13:29 Iohexol (OMNIPAQUE-300 100ml) 100 ml ONCE PRN INJ RADIOLOGY 04/30/19 17:15 05/02/19 17:14 Magnesium Hydroxide (Mom) 30 ml DAILYPRN PRN ORAL Constipation 04/30/19 17:30 05/01/19 17:29 Magnesium Oxide (Mag-Ox 400mg) 400 mg THREE TIMES A DAY ORAL 04/30/19 18:00 05/30/19 08:59 Metronidazole (Flagyl) 500 mg Q8HR ORAL 04/30/19 22:00 05/01/19 23:59 Potassium Chloride (K-Dur) 40 meq DAILY ORAL 05/01/19 09:00 05/24/19 10:59 Warfarin Sodium (Coumadin per pharmacy) 1 ea DAILY PRN MISC Per rx protocol 05/01/19 09:00 05/29/19 07:29 Warfarin Sodium (Coumadin) 5 mg COUMADIN ORAL 04/30/19 18:00 04/30/19 20:00 Janette Stallworth M.D. Apr 30, 2019 17:44
--- NOTE | 2019-04-30 19:26 | NUR ---
HAND-OFF: Report given to SARAI Chand. Patient more alert, bmx2 during shift, voids on bedpan.
--- NOTE | 2019-04-30 19:26 | Diagnostic Imaging Report ---
EXAM: CT Angiography Head Without And With Intravenous Contrast CLINICAL HISTORY: WEAK TECHNIQUE: Axial computed tomographic angiography images of the head without and with intravenous contrast using CT angiography protocol. CTDI is 662.6 mGy and DLP is 5829.3 mGy-cm for combined exams. One or more of the following dose reduction techniques were used: automated exposure control, adjustment of the mA and or kV according to patient size, use of iterative reconstruction technique. MIP reconstructed images were created and reviewed. COMPARISON: No relevant prior studies available. FINDINGS: VASCULATURE: Right internal carotid artery: Internal carotid is patent with no significant stenosis. No aneurysm. Right anterior cerebral artery: No occlusion or significant stenosis. No aneurysm. Right middle cerebral artery: No occlusion or significant stenosis. No aneurysm. Right posterior cerebral artery: No occlusion or significant stenosis. No aneurysm. Right vertebral artery: No significant stenosis. No occlusion. Left internal carotid artery: Internal carotid is patent with no significant stenosis. No aneurysm. Left anterior cerebral artery: No occlusion or significant stenosis. No aneurysm. Left middle cerebral artery: No occlusion or significant stenosis. No aneurysm. Left posterior cerebral artery: No occlusion or significant stenosis. No aneurysm. Left vertebral artery: Unremarkable as visualized. Basilar artery: No occlusion or significant stenosis. No aneurysm. HEAD: Brain: No hemorrhage. No edema. Normal enhancement. Ventricles: Unremarkable. No ventriculomegaly. Bones joints: No acute fracture. Soft tissues: Unremarkable. Sinuses: Unremarkable as visualized. No acute sinusitis. Mastoid air cells: Unremarkable as visualized. No mastoid effusion. Orbits: Cataract surgery. Sella: Empty sella IMPRESSION: No central occlusion related to [place]. EXAM: CT Angiography Neck Without And With Intravenous Contrast CLINICAL HISTORY: WEAK TECHNIQUE: Axial computed tomographic angiography images of the neck without and with intravenous contrast using CT angiography protocol. CTDI is 662.6 mGy and DLP is 5829.3 mGy-cm for combined exams. One or more of the following dose reduction techniques were used: automated exposure control, adjustment of the mA and or kV according to patient size, use of iterative reconstruction technique. MIP reconstructed images were created and reviewed. COMPARISON: No relevant prior studies available. FINDINGS: VASCULATURE: Right common carotid artery: No significant stenosis. No dissection or occlusion. Right internal carotid artery: Internal carotid is patent with no significant stenosis. No aneurysm. Right external carotid artery: No occlusion. Right vertebral artery: No significant stenosis. No occlusion. Left common carotid artery: No significant stenosis. No occlusion. Left internal carotid artery: Internal carotid is patent with no significant stenosis. No aneurysm. Left external carotid artery: No occlusion. Left vertebral artery: Unremarkable. No significant stenosis. No dissection or occlusion. NECK: Bones joints: No acute fracture. Soft tissues: Unremarkable as visualized. CAROTID STENOSIS REFERENCE USING NASCET CRITERIA: % ICA stenosis = (1 - narrowest ICA diameter diameter of distal cervical ICA) x 100. Mild - <50% stenosis. Moderate - 50-69% stenosis. Severe - 70-94% stenosis. Near occlusion - 95-99% stenosis. Occluded - 100% stenosis. IMPRESSION: No occlusion or high grade stenosis.
--- NOTE | 2019-04-30 19:27 | NUR ---
NURSE NOTES: Received patient from Krysta Salas RN. Will continue plan of care.
--- NOTE | 2019-04-30 20:00 | NUR ---
NURSE NOTES: Patient is stable. Awake, alert and oriented x4. [place] speaking. CT of head resulted negative, informed Dr. Silva and Dr. Pennington that I will continue the Heparin drip and received reply that they are aware. Heparin drip restarted at 20units/kg/hr (18.6ml/hr). Patient also request to urinate, bed yusuf provided and partial bed bath is provided. Able able to turn to the side herself. Family members are present.
--- NOTE | 2019-04-30 22:00 | NUR ---
NURSE NOTES: Patient is stable. All needs are met. Voided on bed yusuf and partial bed bath given and repositioned. Spoke with Zen @ pharmacy; explained that Heparin drip was held up until 1999. Was advised to reschedule PTT @ 0200 (6 hours after restart) and to keep running Heparin at 20unit/kg/hr with no need to rescan bag.
--- NOTE | 2019-04-30 22:29 | NUR ---
NURSE NOTES: Patient's IV spreadsheet does not document that the Heparin drip is running. Spoke with Sebas from [facility] and suggested to scan a new label which she will print out. Sebas is also aware that the Heparin drip was restarted at 1999 and that the scanned medication will be around 2245. Next PTT will remain at 0200.
[2019-05-01] VITALS (18 sets, daily range): BP systolic 96–122; BP diastolic 47–78
--- NOTE | 2019-05-01 | NUR ---
NURSE NOTES: Patient is sleeping comfortably. Vital signs are stable. All needs are met. Son remains at bedside.
--- NOTE | 2019-05-01 02:00 | NUR ---
NURSE NOTES: Patient is sleeping comfortably. Vital signs are stable. Voided on a bed yusuf and pads are changed. Sponge bath given. Bed is low, locked and alarm is activated. Son is at bedside.
--- NOTE | 2019-05-01 04:00 | NUR ---
NURSE NOTES: Patient is awake for lab draw. PTT resulted back at 67. No changes in rate, will continue to run at 20unit/kg/hr (18.6ml/hr). IV lines are updated. IV site is patent. Patient is stable.
[2019-05-01] MEDS: NovoLOG Insulin Flexpen SUBQ SCH ×4 (05:51→21:32)
[2019-05-01] MEDS: metroNIDAZOLE 500mg tab ORAL SCH ×2 (05:52→13:46)
--- NOTE | 2019-05-01 06:00 | NUR ---
NURSE NOTES: Patient is sleeping comfortably. Vital signs are stable, no s/s of pain or distress. Patient is able to reposition herself in bed. all needs are met.
--- NOTE | 2019-05-01 07:15 | NUR ---
HAND-OFF: Report given to SARAI Sadler.
--- NOTE | 2019-05-01 08:00 | NUR ---
NURSE NOTES: Received change of shift report from Jagruti MOON. Pt is awake, alert, oriented x3 to (full name/birthdate/location). Pt is on room air with 100% O2Sat and slightly diminished lung sounds. telemetry monitor displays SR to ST with heart rate fluctuating in the upper 90's to low 100's with bounding peripheral pulses. Pt is on Heparin drip currently infusing at 20 units/kg/hour via peripheral IV access on right FA #[id number]. Second peripheral IV access is noted on left FA #[id number], saline locked, patent/intact. Abdomen is flat, soft/nontender to touch with active bowel sounds. There is a midline abdominal incisional scar, healing, intact, slightly pink, with one steri-strip left on the incisional scar. Skin also has slight erythema on buttocks. Pt uses bedpan for urine/BM elimination. Pt has 4/5 strength on bilateral extremities. Bed is locked, with three side rails up, in lowest position, and call light within easy reach. Will continue to monitor pt and follow plan of care per MD orders and protocol.
[2019-05-01] MEDS: Magnesium Oxide 400mg tab ORAL SCH ×3 (08:24→17:19)
[2019-05-01] MEDS ORDERED: Cefepime HCl 1 GM in D5W 55 ML IVPB SCH (09:00)
--- NOTE | 2019-05-01 09:44 | Nephrology Progress Note ---
Assessment/Plan Problem List: (1) Perforated abdominal viscus (2) Hypokalemia (3) Hypomagnesemia (4) Diabetes mellitus (5) Anemia Assessment WBC rising Post lap on 03/10 Low K Low Phos Low Mag Anemia DM h/o HTN Plan Had an episode of weakness and presyncope, now in icu now hemodynamics and neuro is baseline today's labs pending 05/01 change all to orals Mag and K and Phos IV as needed Keep BP and BS in check per orders DC planning Subjective ROS Limited/Unobtainable: No Interval Events/Complaints in icu Objective Objective Last 24 Hour Vital Signs Date Time Temp Pulse Resp B/P (MAP) Pulse Ox O2 Delivery O2 Flow Rate FiO2 05/01/19 09:00 95 22 107/67 (80) 100 05/01/19 08:00 Room Air 05/01/19 08:00 97.9 97 23 114/55 (74) 100 05/01/19 08:00 107 05/01/19 07:00 92 20 110/49 (69) 99 05/01/19 06:00 98 21 122/54 (76) 99 05/01/19 05:00 93 21 96/48 (64) 99 05/01/19 04:00 Room Air Room Air 05/01/19 04:00 98.2 92 20 103/50 (67) 100 05/01/19 03:05 95 05/01/19 03:00 93 19 113/53 (73) 100 05/01/19 02:00 106 23 98/78 (85) 99 05/01/19 01:00 100 22 107/50 (69) 98 05/01/19 00:00 98.1 98 23 121/49 (73) 100 05/01/19 00:00 Room Air Room Air 04/30/19 23:40 100 04/30/19 23:00 104 22 108/61 (77) 99 04/30/19 22:00 109 22 99/81 (87) 100 04/30/19 21:00 110 24 120/56 (77) 100 04/30/19 21:00 Room Air Room Air 04/30/19 20:00 98.7 107 25 117/56 (76) 100 04/30/19 20:00 Room Air Room Air 04/30/19 19:32 103 04/30/19 19:00 103 18 116/53 (74) 97 04/30/19 18:00 108 25 136/75 (95) 100 04/30/19 17:00 116 18 137/70 (92) 97 04/30/19 16:30 98.6 116 18 139/70 (93) 97 04/30/19 12:00 98.1 72 18 126/80 (95) 97 Intake and Output 04/30/19 05/01/19 19:00 07:00 Intake Total 285.2 ml 403.76 ml Balance 285.2 ml 403.76 ml Intake Oral 250 ml IV Total 285.2 ml 153.76 ml # Voids 1 3 # Bowel Movements 2 2 Laboratory Tests 05/01/19 02:00: Activated Partial Thromboplast Time 67H Height (Feet): 5 Height (Inches): 0.00 Weight (Pounds): 102 General Appearance: no apparent distress Cardiovascular: normal rate Respiratory/Chest: lungs clear Abdomen: soft Neurologic: other - base line Objective no change El Clark MD May 01, 2019 09:44
[2019-05-01 10:30] LABS: BASOPHILS % (AUTO) 2.4 % (0.0-2.0); HEMATOCRIT 34.3 % (37.0-47.0); HEMOGLOBIN 10.7 G/DL (12.0-16.0); LYMPHOCYTES % (AUTO) 44.3 % (20.0-45.0); MEAN CORPUSCULAR VOLUME 81 FL (80-99); MONOCYTES % (AUTO) 13.7 % (1.0-10.0); NEUTROPHILS % (AUTO) 37.6 % (45.0-75.0); PLATELET COUNT 213 K/UL (150-450); RED BLOOD COUNT 4.25 M/UL (4.20-5.40); RED CELL DISTRIBUTION WIDTH 15.8 % (11.6-14.8); WHITE BLOOD COUNT 3.8 K/UL (4.8-10.8)
--- NOTE | 2019-05-01 10:30 | NUR ---
NURSE NOTES: Administered AM meds. Pt consumed 80% of breakfast meal. Pt had x1 episode of BM, soft/formed/brown. Pt was cleaned and repositioned, and assisted with repositioning. VS remain stable, while family is now at bedside.
[2019-05-01 10:38] LABS: ALANINE AMINOTRANSFERASE 16 U/L (12-78); ALBUMIN/GLOBULIN RATIO 0.8 (1.0-2.7); ALKALINE PHOSPHATASE 93 U/L (46-116); ANION GAP 9 mmol/L (5-15); ASPARTATE AMINO TRANSFERASE 29 U/L (15-37); BILIRUBIN,TOTAL 0.4 MG/DL (0.2-1.0); BLOOD UREA NITROGEN 7 mg/dL (7-18); CALCIUM 9.2 MG/DL (8.5-10.1); CARBON DIOXIDE 24 MMOL/L (21-32); CHLORIDE 104 MMOL/L (98-107); CREATININE 0.7 MG/DL (0.55-1.30); POTASSIUM 4.1 MMOL/L (3.5-5.1); SODIUM 137 MMOL/L (136-145)
[2019-05-01 11:13] LABS: PHOSPHORUS 3.6 MG/DL (2.5-4.9)
[2019-05-01] MEDS: Heparin 25,000u/D5W 500ml 500 ML IV SCH (12:17)
--- NOTE | 2019-05-01 12:30 | NUR ---
NURSE NOTES: Pt is sitting up in bed at high young's, eating lunch meal, while family is at bedside. VS remain stable and afebrile. broomcorn seeder displays NSR with heart rate in the low 90's. Received order to transfer pt to Tele. Awaiting for EEG at bedside.
[2019-05-01 13:24] LABS: INR 1.2 (0.9-1.1)
--- NOTE | 2019-05-01 13:30 | NUR ---
CASE MANAGEMENT: REVIEW 05/01/2019 SI:PERFORATED VISCOUS. T 97.9 HR 107 RR 23 B/P 114/55 SATS 100% ON RA WBC 3.8 GLU 176 MG 1.6 IS: CEFEPIME IV QD KDUR PO QD INSULIN ASPART SUBQ AC/HS HEPARIN DRIP PER PROTOCOL FLAGYL PO Q8H ICU STATUS PLAN OF CARE: EEG
--- NOTE | 2019-05-01 14:15 | NUR ---
NURSE NOTES: EEG is being done at bedside. Waiting for bed availability to transfer pt to Tele.
--- NOTE | 2019-05-01 15:07 | Internal Med Progress Note ---
Subjective Date of Service: May 01, 2019 Physician Name Zen Paige Attending Physician Marcos Silva MD Current Medications Medications (Trade) Dose Ordered Sig/Shantelle Route PRN Reason Start Time Stop Time Status Last Admin Dose Admin Dextrose (Dextrose 50%) 25 ml Q30M PRN IV Hypoglycemia 04/30/19 17:30 05/29/19 12:29 Dextrose (Dextrose 50%) 50 ml Q30M PRN IV Hypoglycemia 04/30/19 17:30 05/29/19 12:29 Heparin Sodium/ Dextrose 500 ml @ 18.6 mls/hr ADJUST PER PROTOCOL IV 04/30/19 17:15 05/30/19 17:14 05/01/19 12:17 Insulin Aspart (NovoLOG) BEFORE MEALS AND HS SUBQ 04/30/19 21:00 05/29/19 13:29 05/01/19 12:02 Iohexol (OMNIPAQUE-300 100ml) 100 ml ONCE PRN INJ RADIOLOGY 04/30/19 17:15 05/02/19 17:14 Magnesium Hydroxide (Mom) 30 ml DAILYPRN PRN ORAL Constipation 04/30/19 17:30 05/01/19 17:29 Magnesium Oxide (Mag-Ox 400mg) 400 mg THREE TIMES A DAY ORAL 04/30/19 18:00 05/30/19 08:59 05/01/19 12:02 Metronidazole (Flagyl) 500 mg Q8HR ORAL 04/30/19 22:00 05/01/19 23:59 05/01/19 13:46 Potassium Chloride (K-Dur) 40 meq DAILY ORAL 05/01/19 09:00 05/24/19 10:59 05/01/19 08:24 Warfarin Sodium (Coumadin per pharmacy) 1 ea DAILY PRN MISC Per rx protocol 05/01/19 09:00 05/29/19 07:29 Warfarin Sodium (Coumadin) 6 mg COUMADIN ORAL 05/01/19 17:00 05/01/19 19:00 Allergies: Coded Allergies: No Known Allergies (Unverified , 03/10/19) ROS Limited/Unobtainable: Yes Subjective 84 YO F admitted with abdominal pain. S/P exploratory laparotomy 03/10/19. Now intra-abdominal abscess. Cover for Int Med-Dr Silva. Transferred to ICU for near syncopal episode overnight Objective Last Vital Signs Date Time Temp Pulse Resp B/P (MAP) Pulse Ox O2 Delivery O2 Flow Rate FiO2 05/01/19 14:00 91 23 109/51 (70) 100 05/01/19 12:00 Room Air 05/01/19 12:00 97.9 Laboratory Tests Test 05/01/19 02:00 05/01/19 09:45 05/01/19 12:50 Activated Partial Thromboplast Time 67 SEC (23-33) H White Blood Count 3.8 K/UL (4.8-10.8) L Red Blood Count 4.25 M/UL (4.20-5.40) Hemoglobin 10.7 G/DL (12.0-16.0) L Hematocrit 34.3 % (37.0-47.0) L Mean Corpuscular Volume 81 FL (80-99) Mean Corpuscular Hemoglobin 25.2 PG (27.0-31.0) L Mean Corpuscular Hemoglobin Concent 31.3 G/DL (32.0-36.0) L Red Cell Distribution Width 15.8 % (11.6-14.8) H Platelet Count 213 K/UL (150-450) Mean Platelet Volume 7.2 FL (6.5-10.1) Neutrophils (%) (Auto) 37.6 % (45.0-75.0) L Lymphocytes (%) (Auto) 44.3 % (20.0-45.0) Monocytes (%) (Auto) 13.7 % (1.0-10.0) H Eosinophils (%) (Auto) 2.0 % (0.0-3.0) Basophils (%) (Auto) 2.4 % (0.0-2.0) H Sodium Level 137 MMOL/L (136-145) Potassium Level 4.1 MMOL/L (3.5-5.1) Chloride Level 104 MMOL/L (98-107) Carbon Dioxide Level 24 MMOL/L (21-32) Anion Gap 9 mmol/L (5-15) Blood Urea Nitrogen 7 mg/dL (7-18) Creatinine 0.7 MG/DL (0.55-1.30) Estimat Glomerular Filtration Rate mL/min (>60) Glucose Level 176 MG/DL (74-106) H Calcium Level 9.2 MG/DL (8.5-10.1) Phosphorus Level 3.6 MG/DL (2.5-4.9) Magnesium Level 1.6 MG/DL (1.8-2.4) L Total Bilirubin 0.4 MG/DL (0.2-1.0) Aspartate Amino Transf (AST/SGOT) 29 U/L (15-37) Alanine Aminotransferase (ALT/SGPT) 16 U/L (12-78) Alkaline Phosphatase 93 U/L (46-116) C-Reactive Protein, Quantitative < 0.4 mg/dL (0.00-0.90) Pro-B-Type Natriuretic Peptide 327 pg/mL (0-125) H Total Protein 6.7 G/DL (6.4-8.2) Albumin 3.0 G/DL (3.4-5.0) L Globulin 3.7 g/dL Albumin/Globulin Ratio 0.8 (1.0-2.7) L Prothrombin Time 12.7 SEC (9.30-11.50) H Prothromb Time International Ratio 1.2 (0.9-1.1) H Intake and Output 04/30/19 05/01/19 18:59 06:59 Intake Total 285.2 ml 385.16 ml Balance 285.2 ml 385.16 ml Intake Oral 250 ml IV Total 285.2 ml 135.16 ml # Voids 1 3 # Bowel Movements 1 3 Objective PHYSICAL EXAMINATION: GENERAL: The patient is a well developed, well nourished female who is intubated and sedated. HEENT: Eyes, pupils equal and responsive to light and accommodation. Extraocular movements are intact. NECK: Supple without lymphadenopathy. CHEST: Nasc canula; Few diffuse wheezes bilaterally. Otherwise, without wheezes or rales. CARDIOVASCULAR: Regular rhythm rate. S1-S2 are normal without murmurs, rubs, or gallops. ABDOMEN: NGT; Soft, nontender with decreased bowel sounds. No evidence of hepatosplenomegaly. no rebound or guarding noted. EXTREMITIES: Negative for clubbing, cyanosis, edema. RECTAL/GENITAL: Not performed. NEUROLOGIC: Cranial nerves II through XII are grossly intact without focal deficits. Assessment/Plan Assessment/Plan ASSESSMENT: This is an 84-year-old female. 1. Perforated gastric ulcer 2. Abdominal pain. 3. Nausea with vomiting. 4. Diabetes type 2. 5. Hypertension. 6. Post Op fever-resolved 7. Leukocytosis 8. Intraabdominal abscess 9. Near syncope TREATMENT: 1. Perforated gastric ulcer. A General Surgery consultation has been obtained with Dr. Sheth. S/P exploratory laparotomy 03/10/19=perforated Pre pyloric ulcer. Tolerating regular diet; NGT discontinued per surgery 2. Diabetes type 2. NovoLog sliding scale has been instituted. 3. Hypertension. The patient is currently hypotensive. 4. Respiratory failure. S/P extubation 03/12/19. A Pulmonary consultation has been obtained with Dr. Bibiana Pennington. 5. Med/surg 6. ABX=cefepime and flagyl for 6 weeks-end date 05/01/19 per ID 7. Surgical intervention on hold for intraabdominal abscess-see surgery note. Will require 6 weeks of ertapenem per ID 8. WBC now normal; Discharge planning 9. CT abdomen/pelvis results from 04/13/19=right adnexal phlegmon 10. CT angio head/neck=no stenosis 11. ICU status Zen Paige MD May 01, 2019 15:07
--- NOTE | 2019-05-01 15:28 | NUR ---
NURSE NOTES: Pt is resting with son at bedside. VS remains stable. Received Tele-bed assignment. EEG is complete and result is negative. Will clean pt and transfer to Tele.
--- NOTE | 2019-05-01 16:00 | NUR ---
TRANSFER TO FLOOR: Patient transferred to Tele Rm 203-2 from ICU Bed F via hospital bed per MD order. Pt was transferred while being monitored on Tele/monitor box. Hand off report was given to Sunshine MOON. Belonging's list was checked and signed with the receiving nurse in front of the pt. Skin is intact with the exception of healed midline abdominal incisional scar and slight erythema of the buttocks area. VS stable. Endorsed plan of care.
--- NOTE | 2019-05-01 16:05 | NUR ---
NURSE NOTES: Patient transferred from ICU to [facility], nurse monitoring on, received report from SARAI Major belonging list checked with RN, family member asking for walker which was provided at 3E, when checked 3E, able to find walker. VS at the time of arrival T 98.3, O2 sat 98%, RR 18, BP 111/52. Patient on heparin drip 20unit/kg/h, 18.6 ml/h, next PTT 0400 05/02/19. IV on left FA 22G, Right FA 22G, asymptomatic, patent, intact. Skin intact, hyperpigmentation of dark brown color on sacral area. Endorsed EEG done today 05/01/19, no acute. Family members at the bedside, bed in lowest position, side rails upx3, call light within reach. Will continue to monitor.
[2019-05-01] MEDS ORDERED: Omnipaque-300 100ml vial INJ PRN (16:15)
[2019-05-01] MEDS ORDERED: Milk of Magnesia 30ml Ud ORAL PRN (16:15)
--- NOTE | 2019-05-01 16:23 | Surgery Progress Note ---
Surgery Progress Note Subjective Procedure Performed ex lap with imelda patch, washout, omentectomy Additional Comments episode of weakness and mental status. transferred to ICU/Tele for monitoring EEG done she seems well now and family at bedside Objective Last 24 Hour Vital Signs Date Time Temp Pulse Resp B/P (MAP) Pulse Ox O2 Delivery O2 Flow Rate FiO2 05/01/19 15:00 88 20 106/52 (70) 98 05/01/19 14:00 91 23 109/51 (70) 100 05/01/19 13:00 102 20 119/55 (76) 100 05/01/19 12:00 95 05/01/19 12:00 Room Air 05/01/19 12:00 97.9 94 25 105/51 (69) 100 05/01/19 11:00 92 23 107/47 (67) 100 05/01/19 10:00 92 24 105/56 (72) 100 05/01/19 09:00 Room Air 05/01/19 09:00 95 22 107/67 (80) 100 05/01/19 08:00 Room Air 05/01/19 08:00 97.9 97 23 114/55 (74) 100 05/01/19 08:00 107 05/01/19 07:00 92 20 110/49 (69) 99 05/01/19 06:00 98 21 122/54 (76) 99 05/01/19 05:00 93 21 96/48 (64) 99 05/01/19 04:00 Room Air Room Air 05/01/19 04:00 98.2 92 20 103/50 (67) 100 05/01/19 03:05 95 05/01/19 03:00 93 19 113/53 (73) 100 05/01/19 02:00 106 23 98/78 (85) 99 05/01/19 01:00 100 22 107/50 (69) 98 05/01/19 00:00 98.1 98 23 121/49 (73) 100 05/01/19 00:00 Room Air Room Air 04/30/19 23:40 100 04/30/19 23:00 104 22 108/61 (77) 99 04/30/19 22:00 109 22 99/81 (87) 100 04/30/19 21:00 110 24 120/56 (77) 100 04/30/19 21:00 Room Air Room Air 04/30/19 20:00 98.7 107 25 117/56 (76) 100 04/30/19 20:00 Room Air Room Air 04/30/19 19:32 103 04/30/19 19:00 103 18 116/53 (74) 97 04/30/19 18:00 108 25 136/75 (95) 100 04/30/19 17:00 116 18 137/70 (92) 97 04/30/19 16:30 98.6 116 18 139/70 (93) 97 I&O Intake and Output 04/30/19 05/01/19 18:59 06:59 Intake Total 285.2 ml 385.16 ml Balance 285.2 ml 385.16 ml Intake Oral 250 ml IV Total 285.2 ml 135.16 ml # Voids 1 3 # Bowel Movements 1 3 Dressing: dry Wound: clean Cardiovascular: RSR Respiratory: clear, decreased breath sounds Abdomen: soft, non-tender, present bowel sounds, non-distended Extremities: no edema, no tenderness, no cyanosis Laboratory Tests Test 05/01/19 02:00 05/01/19 09:45 05/01/19 12:50 Activated Partial Thromboplast Time 67 SEC (23-33) H White Blood Count 3.8 K/UL (4.8-10.8) L Red Blood Count 4.25 M/UL (4.20-5.40) Hemoglobin 10.7 G/DL (12.0-16.0) L Hematocrit 34.3 % (37.0-47.0) L Mean Corpuscular Volume 81 FL (80-99) Mean Corpuscular Hemoglobin 25.2 PG (27.0-31.0) L Mean Corpuscular Hemoglobin Concent 31.3 G/DL (32.0-36.0) L Red Cell Distribution Width 15.8 % (11.6-14.8) H Platelet Count 213 K/UL (150-450) Mean Platelet Volume 7.2 FL (6.5-10.1) Neutrophils (%) (Auto) 37.6 % (45.0-75.0) L Lymphocytes (%) (Auto) 44.3 % (20.0-45.0) Monocytes (%) (Auto) 13.7 % (1.0-10.0) H Eosinophils (%) (Auto) 2.0 % (0.0-3.0) Basophils (%) (Auto) 2.4 % (0.0-2.0) H Sodium Level 137 MMOL/L (136-145) Potassium Level 4.1 MMOL/L (3.5-5.1) Chloride Level 104 MMOL/L (98-107) Carbon Dioxide Level 24 MMOL/L (21-32) Anion Gap 9 mmol/L (5-15) Blood Urea Nitrogen 7 mg/dL (7-18) Creatinine 0.7 MG/DL (0.55-1.30) Estimat Glomerular Filtration Rate mL/min (>60) Glucose Level 176 MG/DL (74-106) H Calcium Level 9.2 MG/DL (8.5-10.1) Phosphorus Level 3.6 MG/DL (2.5-4.9) Magnesium Level 1.6 MG/DL (1.8-2.4) L Total Bilirubin 0.4 MG/DL (0.2-1.0) Aspartate Amino Transf (AST/SGOT) 29 U/L (15-37) Alanine Aminotransferase (ALT/SGPT) 16 U/L (12-78) Alkaline Phosphatase 93 U/L (46-116) C-Reactive Protein, Quantitative < 0.4 mg/dL (0.00-0.90) Pro-B-Type Natriuretic Peptide 327 pg/mL (0-125) H Total Protein 6.7 G/DL (6.4-8.2) Albumin 3.0 G/DL (3.4-5.0) L Globulin 3.7 g/dL Albumin/Globulin Ratio 0.8 (1.0-2.7) L Prothrombin Time 12.7 SEC (9.30-11.50) H Prothromb Time International Ratio 1.2 (0.9-1.1) H Assessment Post-op Diagnosis perforated prepyloric gastric ulcer Plan Problems: (1) Peritonitis Assessment & Plan: 84F with perforated abdominal viscus likely gastric perforation based on CT findings s/p imelda patch recovering labs improved exam improved advance diet anna removed CT and US noted repeat CT noted Unusual fluid and phlegmon changes seen in the right adnexal region. Comparison with prior study of 03/27/2019 is difficult, due to lack of IV contrast administration currently. However, there appears to be likely decreased discrete fluid but is perhaps slightly increased phlegmon component. In addition, the appendix appears distended with fluid currently but intact. The significance of this finding and he of the surrounding abnormalities is uncertain. There is also a tiny 13 mm collection in the right perirectal region which is unchanged Persistent distention of the endometrium with fluid Slightly increased infiltration of the omental fat adjacent to the distal greater curvature of the stomach without discrete fluid collection. This may represent progressive postsurgical scarring. Other findings as noted, including degenerative spondylosis, left hip prosthesis , old healed left inferior pubic ramus fracture abd fluid collection possible abscess unable to drain via IR can consider surgical drainage but would be high risk and with morbidity and mortality risk given age and medical condition family aware plan for medical therapy with IV abx given stable improving with medical management labs improved exam benign will monitor thank you (2) Perforated abdominal viscus Mike Sheth May 01, 2019 16:23
[2019-05-01] MEDS ORDERED: Heparin 25,000u/D5W 500ml 500 ML IV SCH ×2 (16:30)
[2019-05-01] MEDS ORDERED: Warfarin Sodium 3mg ORAL SCH ×2 (17:00)
--- NOTE | 2019-05-01 19:40 | NUR ---
HAND-OFF: Report given to SARAI Jenkins.
--- NOTE | 2019-05-01 19:48 | NUR ---
NURSE NOTES: Received report from SARAI Pace. Patient is awake lying semi-young's; resting comfortably. No signs of acute distress noted; denies pain at this time. Son at bedside. AOx2-3; able to make needs known. Primarily Kazakh speaking. Checked IV site, lines, and IV rate; patent and running. No erythema, bleeding, or infiltration noted. Heparin drip running at 20 units/kg/hr or 18.506 mls/hr. Bed at lowest position, brakes on, siderails up x3. Call light within reach. Will continue to monitor.
[2019-05-01] MEDS ORDERED: metroNIDAZOLE 500mg tab ORAL SCH (22:00)
[2019-05-02] VITALS: BP 125/71
--- NOTE | 2019-05-02 03:28 | NUR ---
NURSE NOTES: Patient is awake lying semi-young's; resting comfortably. No signs of acute distress or pain noted at this time. Heparin drip running at 20 units/kg/hr or 18.506 mls/hr. Son at bedside. Addendum: 05/02/19 at 0329 by ALOK ZULUAGA RN RN Patient is asleep.
[2019-05-02 04:00] VITALS: BP 126/76
[2019-05-02 04:58] LABS: HEMATOCRIT 31.5 % (37.0-47.0); MEAN CORPUSCULAR VOLUME 80 FL (80-99); PLATELET COUNT 213 K/UL (150-450); RED BLOOD COUNT 3.93 M/UL (4.20-5.40); RED CELL DISTRIBUTION WIDTH 15.7 % (11.6-14.8)
[2019-05-02 05:05] LABS: ANION GAP 8 mmol/L (5-15); BLOOD UREA NITROGEN 11 mg/dL (7-18); CALCIUM 9.2 MG/DL (8.5-10.1); CARBON DIOXIDE 23 MMOL/L (21-32); CHLORIDE 106 MMOL/L (98-107); CREATININE 0.7 MG/DL (0.55-1.30); POTASSIUM 4.1 MMOL/L (3.5-5.1); SODIUM 137 MMOL/L (136-145)
[2019-05-02 05:11] LABS: INR 1.2 (0.9-1.1)
[2019-05-02] MEDS: NovoLOG Insulin Flexpen SUBQ SCH ×4 (06:25→21:28)
--- NOTE | 2019-05-02 07:14 | NUR ---
HAND-OFF: Report given to SARAI Pace. Patient is awake lying semi-young's; resting comfortably. Heparin drip running at 20 units/kg/hr or 18.506 mls/hr. In stable condition.
[2019-05-02 08:00] VITALS: BP 118/81
--- NOTE | 2019-05-02 08:11 | NUR ---
NURSE NOTES: Received report from SARAI Jenkins. Patient in bed resting, no active s/s cardiac, respiratory distress noticed at this time. Patient AOx3-4, SR with HR 93, on room air. Heparin drip running at 20 units/kg/hr or 18.506 mls/hr. IV site on left FA 22G, right FA 20G, asymptomatic, patent, intact. Bed in lowest position, side rails upx3, bed alarm on, call light within reach. Will continue to monitor.
[2019-05-02] MEDS: Magnesium Oxide 400mg tab ORAL SCH ×3 (09:40→17:25)
--- NOTE | 2019-05-02 10:53 | Nephrology Progress Note ---
Assessment/Plan Problem List: (1) Perforated abdominal viscus (2) Hypokalemia (3) Hypomagnesemia (4) Diabetes mellitus (5) Anemia Assessment WBC rising Post lap on 03/10 Low K Low Phos Low Mag Anemia DM h/o HTN Plan Had an episode of weakness and presyncope, was in icu no on Tele now hemodynamics and neuro is baseline today's labs pending 05/01 change all to orals Mag and K and Phos IV as needed Keep BP and BS in check per orders DC planning Subjective ROS Limited/Unobtainable: No Objective Objective Last 24 Hour Vital Signs Date Time Temp Pulse Resp B/P (MAP) Pulse Ox O2 Delivery O2 Flow Rate FiO2 05/02/19 09:00 Room Air 05/02/19 08:00 98.1 101 18 118/81 (93) 97 05/02/19 08:00 94 05/02/19 04:00 98.5 93 17 126/76 (93) 97 05/02/19 04:00 85 05/02/19 00:00 90 05/02/19 00:00 98.4 94 18 125/71 (89) 97 05/01/19 21:00 Room Air 05/01/19 20:00 98.7 90 18 106/59 (75) 96 05/01/19 20:00 103 05/01/19 16:50 90 05/01/19 16:00 Room Air 05/01/19 16:00 98.0 90 20 107/56 (73) 100 05/01/19 16:00 108 05/01/19 15:00 88 20 106/52 (70) 98 05/01/19 14:00 91 23 109/51 (70) 100 05/01/19 13:00 102 20 119/55 (76) 100 05/01/19 12:00 95 05/01/19 12:00 Room Air 05/01/19 12:00 97.9 94 25 105/51 (69) 100 05/01/19 11:00 92 23 107/47 (67) 100 Intake and Output 05/01/19 05/02/19 19:00 07:00 Intake Total 887.4 ml 570.043 ml Output Total 300 ml 4 ml Balance 587.4 ml 566.043 ml Intake Oral 720 ml 360 ml IV Total 167.4 ml 210.043 ml Output Urine Total 300 ml 4 ml # Voids 3 # Bowel Movements 1 Laboratory Tests 05/01/19 12:50: Prothrombin Time 12.7H, Prothromb Time International Ratio 1.2H 05/02/19 04:00: Prothrombin Time 12.7H, Prothromb Time International Ratio 1.2H, White Blood Count 4.0L, Red Blood Count 3.93L, Hemoglobin 10.0L, Hematocrit 31.5L, Mean Corpuscular Volume 80, Mean Corpuscular Hemoglobin 25.3L, Mean Corpuscular Hemoglobin Concent 31.6L, Red Cell Distribution Width 15.7H, Platelet Count 213 , Mean Platelet Volume 7.4, Neutrophils (%) (Auto) , Lymphocytes (%) (Auto) , Monocytes (%) (Auto) , Eosinophils (%) (Auto) , Basophils (%) (Auto) , Differential Total Cells Counted 100, Neutrophils % (Manual) 28L, Lymphocytes % (Manual) 52H, Monocytes % (Manual) 11H, Eosinophils % (Manual) 8H, Basophils % ( Manual) 1, Band Neutrophils 0, Platelet Estimate Adequate, Platelet Morphology Normal, Hypochromasia 2+, Anisocytosis 1+, Microcytosis 2+, Activated Partial Thromboplast Time 78H, Sodium Level 137, Potassium Level 4.1, Chloride Level 106 , Carbon Dioxide Level 23, Anion Gap 8, Blood Urea Nitrogen 11, Creatinine 0.7, Estimat Glomerular Filtration Rate , Glucose Level 159H, Calcium Level 9.2 Height (Feet): 5 Height (Inches): 0.00 Weight (Pounds): 102 General Appearance: no apparent distress Objective no change El Clark MD May 02, 2019 10:53
--- NOTE | 2019-05-02 11:51 | NUR ---
CASE MANAGEMENT: REVIEW 05/02/2019 SI:PERFORATED VISCOUS. T 98.1 HR 101 RR 18 B/P 118/81 SATS 97% ON RA WBC 4 GLU 159 IS: CEFEPIME IV QD KDUR PO QD INSULIN ASPART SUBQ AC/HS HEPARIN DRIP PER PROTOCOL FLAGYL PO Q8H TELE STATUS PLAN OF CARE: MONITOR COAGS EEG
[2019-05-02 12:00] VITALS: BP 120/65
--- NOTE | 2019-05-02 12:51 | Pulmonology Progress Note ---
Assessment/Plan Problems: (1) Intra-abdominal abscess (2) Sepsis (3) Perforated abdominal viscus (4) S/P exploratory laparotomy (5) Septic shock (6) Diabetes mellitus (7) Peritonitis Assessment/Plan CT of head negative improving on regular diet pt finished 6 weeks of iv abx as per ID for intra abdominal abscess on heparin drip and coumadin afebrile, WBC wnl Subjective ROS Limited/Unobtainable: No Constitutional: Reports: no symptoms HEENT: Repors: no symptoms Allergies: Coded Allergies: No Known Allergies (Unverified , 03/10/19) Objective Last 24 Hour Vital Signs Date Time Temp Pulse Resp B/P (MAP) Pulse Ox O2 Delivery O2 Flow Rate FiO2 05/02/19 12:00 98.0 81 20 120/65 (83) 100 05/02/19 09:00 Room Air 05/02/19 08:00 98.1 101 18 118/81 (93) 97 05/02/19 08:00 94 05/02/19 04:00 98.5 93 17 126/76 (93) 97 05/02/19 04:00 85 05/02/19 00:00 90 05/02/19 00:00 98.4 94 18 125/71 (89) 97 05/01/19 21:00 Room Air 05/01/19 20:00 98.7 90 18 106/59 (75) 96 05/01/19 20:00 103 05/01/19 16:50 90 05/01/19 16:00 Room Air 05/01/19 16:00 98.0 90 20 107/56 (73) 100 05/01/19 16:00 108 05/01/19 15:00 88 20 106/52 (70) 98 05/01/19 14:00 91 23 109/51 (70) 100 05/01/19 13:00 102 20 119/55 (76) 100 Intake and Output 05/01/19 05/02/19 19:00 07:00 Intake Total 887.4 ml 570.043 ml Output Total 300 ml 4 ml Balance 587.4 ml 566.043 ml Intake Oral 720 ml 360 ml IV Total 167.4 ml 210.043 ml Output Urine Total 300 ml 4 ml # Voids 3 # Bowel Movements 1 General Appearance: WD/WN HEENT: normocephalic, atraumatic Respiratory/Chest: chest wall non-tender, lungs clear Breasts: no masses Cardiovascular: normal rate Genitourinary: normal external genitalia Extremities: no clubbing Skin: no rash Laboratory Tests 05/01/19 12:50: Prothrombin Time 12.7H, Prothromb Time International Ratio 1.2H 05/02/19 04:00: Prothrombin Time 12.7H, Prothromb Time International Ratio 1.2H, White Blood Count 4.0L, Red Blood Count 3.93L, Hemoglobin 10.0L, Hematocrit 31.5L, Mean Corpuscular Volume 80, Mean Corpuscular Hemoglobin 25.3L, Mean Corpuscular Hemoglobin Concent 31.6L, Red Cell Distribution Width 15.7H, Platelet Count 213 , Mean Platelet Volume 7.4, Neutrophils (%) (Auto) , Lymphocytes (%) (Auto) , Monocytes (%) (Auto) , Eosinophils (%) (Auto) , Basophils (%) (Auto) , Differential Total Cells Counted 100, Neutrophils % (Manual) 28L, Lymphocytes % (Manual) 52H, Monocytes % (Manual) 11H, Eosinophils % (Manual) 8H, Basophils % ( Manual) 1, Band Neutrophils 0, Platelet Estimate Adequate, Platelet Morphology Normal, Hypochromasia 2+, Anisocytosis 1+, Microcytosis 2+, Activated Partial Thromboplast Time 78H, Sodium Level 137, Potassium Level 4.1, Chloride Level 106 , Carbon Dioxide Level 23, Anion Gap 8, Blood Urea Nitrogen 11, Creatinine 0.7, Estimat Glomerular Filtration Rate , Glucose Level 159H, Calcium Level 9.2 Current Medications Medications (Trade) Dose Ordered Sig/Shantelle Route PRN Reason Start Time Stop Time Status Last Admin Dose Admin Dextrose (Dextrose 50%) 25 ml Q30M PRN IV Hypoglycemia 05/01/19 16:30 05/29/19 12:29 Dextrose (Dextrose 50%) 50 ml Q30M PRN IV Hypoglycemia 05/01/19 16:30 05/29/19 12:29 Heparin Sodium/ Dextrose 500 ml @ 18.506 mls/ hr ADJUST PER PROTOCOL IV 05/01/19 16:30 05/30/19 16:29 05/01/19 17:25 Insulin Aspart (NovoLOG) BEFORE MEALS AND HS SUBQ 05/01/19 16:30 05/29/19 13:29 05/02/19 06:25 Iohexol (OMNIPAQUE-300 100ml) 100 ml ONCE PRN INJ radiology procedure 05/01/19 16:15 05/02/19 16:14 Magnesium Hydroxide (Mom) 30 ml DAILYPRN PRN ORAL Constipation 05/01/19 16:15 05/31/19 16:14 Magnesium Oxide (Mag-Ox 400mg) 400 mg THREE TIMES A DAY ORAL 05/01/19 18:00 05/30/19 08:59 05/02/19 09:40 Potassium Chloride (K-Dur) 40 meq DAILY ORAL 05/02/19 09:00 05/24/19 10:59 05/02/19 09:41 Warfarin Sodium (Coumadin per pharmacy) 1 ea DAILY PRN MISC Per rx protocol 05/02/19 09:00 05/29/19 07:29 Warfarin Sodium (Coumadin) 6 mg COUMADIN ORAL 05/02/19 17:00 05/02/19 18:00 Bibiana Pennington MD May 02, 2019 12:51
--- NOTE | 2019-05-02 14:20 | NUR ---
TRANSFER TO FLOOR: Patient transferred to 3E, per Dr. Pennington. Report given to Aster Woodall RN. Belongings and medications given to Aster Woodall RN. Family and or S/O informed of transfer.
--- NOTE | 2019-05-02 14:26 | Surgery Progress Note ---
Surgery Progress Note Subjective Procedure Performed ex lap with imelda patch, washout, omentectomy Additional Comments Patient seen and examined bedside. Clinically stable and looks improved. Labs noted. No complaints. Tolerating diet. Having bowel movements. Objective Last 24 Hour Vital Signs Date Time Temp Pulse Resp B/P (MAP) Pulse Ox O2 Delivery O2 Flow Rate FiO2 05/02/19 12:00 93 05/02/19 12:00 98.0 81 20 120/65 (83) 100 05/02/19 09:00 Room Air 05/02/19 08:00 98.1 101 18 118/81 (93) 97 05/02/19 08:00 94 05/02/19 04:00 98.5 93 17 126/76 (93) 97 05/02/19 04:00 85 05/02/19 00:00 90 05/02/19 00:00 98.4 94 18 125/71 (89) 97 05/01/19 21:00 Room Air 05/01/19 20:00 98.7 90 18 106/59 (75) 96 05/01/19 20:00 103 05/01/19 16:50 90 05/01/19 16:00 Room Air 05/01/19 16:00 98.0 90 20 107/56 (73) 100 05/01/19 16:00 108 05/01/19 15:00 88 20 106/52 (70) 98 I&O Intake and Output 05/01/19 05/02/19 19:00 07:00 Intake Total 887.4 ml 570.043 ml Output Total 300 ml 4 ml Balance 587.4 ml 566.043 ml Intake Oral 720 ml 360 ml IV Total 167.4 ml 210.043 ml Output Urine Total 300 ml 4 ml # Voids 3 # Bowel Movements 1 Cardiovascular: RSR Respiratory: clear Abdomen: soft, non-tender, present bowel sounds, non-distended Extremities: no edema, no tenderness, no cyanosis Laboratory Tests Test 05/02/19 04:00 White Blood Count 4.0 K/UL (4.8-10.8) L Red Blood Count 3.93 M/UL (4.20-5.40) L Hemoglobin 10.0 G/DL (12.0-16.0) L Hematocrit 31.5 % (37.0-47.0) L Mean Corpuscular Volume 80 FL (80-99) Mean Corpuscular Hemoglobin 25.3 PG (27.0-31.0) L Mean Corpuscular Hemoglobin Concent 31.6 G/DL (32.0-36.0) L Red Cell Distribution Width 15.7 % (11.6-14.8) H Platelet Count 213 K/UL (150-450) Mean Platelet Volume 7.4 FL (6.5-10.1) Neutrophils (%) (Auto) % (45.0-75.0) Lymphocytes (%) (Auto) % (20.0-45.0) Monocytes (%) (Auto) % (1.0-10.0) Eosinophils (%) (Auto) % (0.0-3.0) Basophils (%) (Auto) % (0.0-2.0) Differential Total Cells Counted 100 Neutrophils % (Manual) 28 % (45-75) L Lymphocytes % (Manual) 52 % (20-45) H Monocytes % (Manual) 11 % (1-10) H Eosinophils % (Manual) 8 % (0-3) H Basophils % (Manual) 1 % (0-2) Band Neutrophils 0 % (0-8) Platelet Estimate Adequate Platelet Morphology Normal Hypochromasia 2+ Anisocytosis 1+ Microcytosis 2+ Prothrombin Time 12.7 SEC (9.30-11.50) H Prothromb Time International Ratio 1.2 (0.9-1.1) H Activated Partial Thromboplast Time 78 SEC (23-33) H Sodium Level 137 MMOL/L (136-145) Potassium Level 4.1 MMOL/L (3.5-5.1) Chloride Level 106 MMOL/L (98-107) Carbon Dioxide Level 23 MMOL/L (21-32) Anion Gap 8 mmol/L (5-15) Blood Urea Nitrogen 11 mg/dL (7-18) Creatinine 0.7 MG/DL (0.55-1.30) Estimat Glomerular Filtration Rate mL/min (>60) Glucose Level 159 MG/DL (74-106) H Calcium Level 9.2 MG/DL (8.5-10.1) Assessment Post-op Diagnosis perforated prepyloric gastric ulcer Plan Problems: (1) Peritonitis Assessment & Plan: 84F with perforated abdominal viscus likely gastric perforation based on CT findings s/p imelda patch recovering labs improved exam improved advance diet anna removed CT and US noted repeat CT noted Unusual fluid and phlegmon changes seen in the right adnexal region. Comparison with prior study of 03/27/2019 is difficult, due to lack of IV contrast administration currently. However, there appears to be likely decreased discrete fluid but is perhaps slightly increased phlegmon component. In addition, the appendix appears distended with fluid currently but intact. The significance of this finding and he of the surrounding abnormalities is uncertain. There is also a tiny 13 mm collection in the right perirectal region which is unchanged Persistent distention of the endometrium with fluid Slightly increased infiltration of the omental fat adjacent to the distal greater curvature of the stomach without discrete fluid collection. This may represent progressive postsurgical scarring. Other findings as noted, including degenerative spondylosis, left hip prosthesis , old healed left inferior pubic ramus fracture abd fluid collection possible abscess unable to drain via IR can consider surgical drainage but would be high risk and with morbidity and mortality risk given age and medical condition family aware Patient is completed 6 weeks of IV antibiotics. Discharge planning exam benign will monitor thank you (2) Perforated abdominal viscus Mike Sheth May 02, 2019 14:26
--- NOTE | 2019-05-02 14:33 | Infectious Diseases Prog Note ---
Assessment/Plan Assessment/Plan Near syncope -04/30 CTA head: No occlusion or high grade stenosis. EEG pending Fever, SP Leukocytosis, -S-p- Probable Sepsis- 2ry to likely intraabdominal abscess- ?source (post-op complication vs retail marketing specialist or sigmoid origin) -04/13 Sp Unusual fluid and phlegmon changes seen in the right adnexal region. Comparison with prior study of 03/27/2019 is difficult, due to lack of IV contrast administration currently. However, there appears to be likely decreased discrete fluid but is perhaps slightly increased phlegmon component. In addition, the appendix appears distended with fluid currently but intact. The significance of this finding and he of the surrounding abnormalities is uncertain. There is also a tiny 13 mm collection in the right perirectal region which is unchanged Persistent distention of the endometrium with fluid Slightly increased infiltration of the omental fat adjacent to the distal greater curvature of the stomach without discrete fluid collection. This may represent progressive postsurgical scarring. 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 Right adnexal region irregular fluid collection, corresponding to findings reported on recent CT scan. This is contiguous with an immediately adjacent segment of bowel.This likewise corresponds to findings on recent CT. Note that the fluid collection and extent are better delineated on the prior study. Nonvisualized left ovary -CT abd/p: Markedly thickened and fluid-filled endometrium. 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 Complex multilobulated fluid collection with areas of enhancing soft tissue in the right adnexal region. This measures 5.5 x 7 x 3.9 cm. There is also a second tiny collection adjacent to the distal rectum. One possible etiology is, given the above finding, a tubo-ovarian abscess, related to retrograde propagation of endometritis. A second possibility is that this represents acute diverticulitis with peridiverticular abscess, given the close relationship with the distal sigmoid colon. A third possibility is this represents an abscess related to infected pelvic fluid from the prior gastric perforation, as the previous exam did demonstrate a small amount of free fluid in the pelvis. Finally, given the presence of the appendix (which isprominent in caliber) at the edge of the collection, this could represent perforated acute distal appendicitis. However, this is deemed less likely. Evidence of interim repair of previously demonstrated perforated gastric ulcer. No evidence of contrast leakage. No abnormal fluid collection at the operative site. Colonic diverticulosis. Slight rim enhancement of the gallbladder. Slight pericholecystic fluid. However, the gallbladder is nondistended, so doubt significance of this. Bilateral basilar pulmonary parenchymal groundglass opacity, likely on the basis of mild pulmonary edema Perforated pre-pyloric gastric ulcer -03/15 s/p UGI series: Negative for postoperative leak -03/10 SP 03/10 SP Exploratory Laparotomy, Abdominal washout. Partial omentectomy. Shane patch for repair of perforated pre-pyloric ulcer. -03/10 CT abd/p: Free intraperitoneal gas. Etiology not completely certain, but gas within and extending from the anterior gastric antral wall is suspicious for a perforated gastric ulcer. Perforated descending colon diverticulitis also possible but deemed much less likely. Free intraperitoneal fluid, presumably related to the above. Fatty liver. Basilar pulmonary parenchymal groundglass opacities. This could indicate pulmonary edema, among other possibilities. Subcentimeter low-attenuation renal lesions, too small to characterize, most likely benign simple cyst. No further follow-up necessary. 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 Acute encephalopathy, Sp -CT head: Chronic and age-related changes. Negative for acute intracranial bleed or mass effect VDRF, post-op; extubated 03/12 DARRON, SP Dm2 HTN Plan: -Continue to monitor off antibiotics -cleared for discharge from ID stand point. -05/01 SP Flagyl #37 -04/30 SP Cefepime #41 -03/22 SP Fluconazole #10 -03/15 SP Zosyn #6 -03/10 SP IV Vancomycin #1, Ancef x1 -Monitor CBC/CMP, temperatures -wound care per surgical team -aspiration precautions -f/u EEG -Neuro eval Subjective Allergies: Coded Allergies: No Known Allergies (Unverified , 03/10/19) Subjective out of ICU, now on telemetry afebrile no leukocytosis offa bx EEG pending no further episodes of near syncope Objective Vital Signs Last 24 Hour Vital Signs Date Time Temp Pulse Resp B/P (MAP) Pulse Ox O2 Delivery O2 Flow Rate FiO2 05/02/19 12:00 93 05/02/19 12:00 98.0 81 20 120/65 (83) 100 05/02/19 09:00 Room Air 05/02/19 08:00 98.1 101 18 118/81 (93) 97 05/02/19 08:00 94 05/02/19 04:00 98.5 93 17 126/76 (93) 97 05/02/19 04:00 85 05/02/19 00:00 90 05/02/19 00:00 98.4 94 18 125/71 (89) 97 05/01/19 21:00 Room Air 05/01/19 20:00 98.7 90 18 106/59 (75) 96 05/01/19 20:00 103 05/01/19 16:50 90 05/01/19 16:00 Room Air 05/01/19 16:00 98.0 90 20 107/56 (73) 100 05/01/19 16:00 108 05/01/19 15:00 88 20 106/52 (70) 98 Height (Feet): 5 Height (Inches): 0.00 Weight (Pounds): 102 Objective General appearance: alert, cooperative, no distress, appears stated age Head: Normocephalic, without obvious abnormality, atraumatic Eyes: conjunctivae/corneas clear. PERRL, EOM's intact. Fundi benign Throat: Lips, mucosa, and tongue normal. Teeth and gums normal Neck: supple, symmetrical, trachea midline, no adenopathy, thyroid: not enlarged, symmetric, no tenderness/mass/nodules, no carotid bruit and no JVD Lungs: clear to auscultation bilaterally Heart: regular rate and rhythm, S1, S2 normal, no murmur, click, rub or gallop Abdomen: soft, peritonitis with tender. Bowel sounds normal. No masses, no organomegaly Extremities: extremities normal, atraumatic, no cyanosis or edema Pulses: 2+ and symmetric Skin: Skin color, texture, turgor normal. No rashes or lesions Neurologic: Grossly normal Laboratory Tests Test 05/02/19 04:00 White Blood Count 4.0 K/UL (4.8-10.8) L Red Blood Count 3.93 M/UL (4.20-5.40) L Hemoglobin 10.0 G/DL (12.0-16.0) L Hematocrit 31.5 % (37.0-47.0) L Mean Corpuscular Volume 80 FL (80-99) Mean Corpuscular Hemoglobin 25.3 PG (27.0-31.0) L Mean Corpuscular Hemoglobin Concent 31.6 G/DL (32.0-36.0) L Red Cell Distribution Width 15.7 % (11.6-14.8) H Platelet Count 213 K/UL (150-450) Mean Platelet Volume 7.4 FL (6.5-10.1) Neutrophils (%) (Auto) % (45.0-75.0) Lymphocytes (%) (Auto) % (20.0-45.0) Monocytes (%) (Auto) % (1.0-10.0) Eosinophils (%) (Auto) % (0.0-3.0) Basophils (%) (Auto) % (0.0-2.0) Differential Total Cells Counted 100 Neutrophils % (Manual) 28 % (45-75) L Lymphocytes % (Manual) 52 % (20-45) H Monocytes % (Manual) 11 % (1-10) H Eosinophils % (Manual) 8 % (0-3) H Basophils % (Manual) 1 % (0-2) Band Neutrophils 0 % (0-8) Platelet Estimate Adequate Platelet Morphology Normal Hypochromasia 2+ Anisocytosis 1+ Microcytosis 2+ Prothrombin Time 12.7 SEC (9.30-11.50) H Prothromb Time International Ratio 1.2 (0.9-1.1) H Activated Partial Thromboplast Time 78 SEC (23-33) H Sodium Level 137 MMOL/L (136-145) Potassium Level 4.1 MMOL/L (3.5-5.1) Chloride Level 106 MMOL/L (98-107) Carbon Dioxide Level 23 MMOL/L (21-32) Anion Gap 8 mmol/L (5-15) Blood Urea Nitrogen 11 mg/dL (7-18) Creatinine 0.7 MG/DL (0.55-1.30) Estimat Glomerular Filtration Rate mL/min (>60) Glucose Level 159 MG/DL (74-106) H Calcium Level 9.2 MG/DL (8.5-10.1) Current Medications Medications (Trade) Dose Ordered Sig/Shantelle Route PRN Reason Start Time Stop Time Status Last Admin Dose Admin Dextrose (Dextrose 50%) 25 ml Q30M PRN IV Hypoglycemia 10/13/19 16:30 05/29/19 12:29 Dextrose (Dextrose 50%) 50 ml Q30M PRN IV Hypoglycemia 05/01/19 16:30 05/29/19 12:29 Heparin Sodium/ Dextrose 500 ml @ 18.506 mls/ hr ADJUST PER PROTOCOL IV 05/01/19 16:30 05/30/19 16:29 05/01/19 17:25 Insulin Aspart (NovoLOG) BEFORE MEALS AND HS SUBQ 05/01/19 16:30 05/29/19 13:29 05/02/19 13:45 Iohexol (OMNIPAQUE-300 100ml) 100 ml ONCE PRN INJ radiology procedure 05/01/19 16:15 05/02/19 16:14 Magnesium Hydroxide (Mom) 30 ml DAILYPRN PRN ORAL Constipation 05/01/19 16:15 05/31/19 16:14 Magnesium Oxide (Mag-Ox 400mg) 400 mg THREE TIMES A DAY ORAL 05/01/19 18:00 05/30/19 08:59 05/02/19 13:42 Potassium Chloride (K-Dur) 40 meq DAILY ORAL 05/02/19 09:00 05/24/19 10:59 05/02/19 09:41 Warfarin Sodium (Coumadin per pharmacy) 1 ea DAILY PRN MISC Per rx protocol 05/02/19 09:00 05/29/19 07:29 Warfarin Sodium (Coumadin) 6 mg COUMADIN ORAL 05/02/19 17:00 05/02/19 18:00 Janette Stallworth M.D. May 02, 2019 14:33
--- NOTE | 2019-05-02 14:35 | NUR ---
NURSE NOTES: Patient came to the unit. Pt a/o x 4, Arabic speaking only. Heparin drip is on. No respiratory discomfort noted. No altered mental status noted. No bleeding sign noted. Bed in lowest position, call light within reach. Will continue to monitor.
[2019-05-02] MEDS ORDERED: Omnipaque-300 100ml vial INJ ONE (14:45)
[2019-05-02] MEDS: Heparin 25,000u/D5W 500ml 500 ML IV SCH (15:17)
--- NOTE | 2019-05-02 15:33 | NUR ---
RD ASSESSMENT & RECOMMENDATIONS SEE CARE ACTIVITY FOR COMPLETE ASSESSMENT DAILY ESTIMATED NEEDS: Needs based on Surgery, DM, wt loss / 45.9kg 30-35 kcals/kg 9379-3957 total kcals 1-2 g protein/kg 46-92 g total protein 25-30 mL/kg 4166-8693 total fluid mLs NUTRITION DIAGNOSIS: * Altered GI function R/T perforated gastric ulcer as evidenced by s/p ex lap, abdominal washout, partial omentectomy, imelda patch for repair of perforated pre-pyloric ulcer, diet now advanced to regular. * Altered nutrition related lab values R/T diabetes,clinical condition as evidenced by elev BGs (177 226 332-> 159 176), A1C 10.2 upon adm -> now 6.9, urine glucose 4+, low phos-> now wnl, low mg, elev triglycerides (300). CURRENT DIET:CCHO MED + LACTOSE FREE PO DIET RECOMMENDATIONS: BLAND, CCHO LOW DIET ADDITIONAL RECOMMENDATIONS: * Monitor BGs closely, need to re-add oral hypoglycemics * Calibrated bedscale wt on 04/1804=879.9lbs -> weekly wts given possible wt loss of 17lbs/ 14% in 39 days * Check f/up triglyceride (300 on 03/13) * MVI x 1 as supplement * Trupti DC'ed per pt refusal .
[2019-05-02 16:00] VITALS: BP 118/74
[2019-05-02] MEDS ORDERED: Milk of Magnesia 30ml Ud ORAL PRN (16:15)
--- NOTE | 2019-05-02 16:22 | NUR ---
Social Service Note Patient continues with a prolonged hospitalization due to medical needs and patient being non-insured. Patient [place] between [place] and the and currently lives at home with her dgt. Dgt is patient's primary support. Application for medi-kiana submitted 03/14/19. [employer] is managing medi-kiana case. Patient's medi-kiana continues to be unassigned to a disease case manager through the [facility]. Patient is Slovenian speaking. Patient's family visits daily. Patient is alert, oriented and verbally responsive. Patient appears in good spirits. Patient will return home with dgt upon discharge. Will continue to monitor and assist as needed.
[2019-05-02] MEDS ORDERED: Warfarin Sodium 3mg ORAL SCH ×2 (17:00)
--- NOTE | 2019-05-02 18:35 | Internal Med Progress Note ---
Subjective Date of Service: May 02, 2019 Physician Name Zen Paige Attending Physician Marcos Silva MD Current Medications Medications (Trade) Dose Ordered Sig/Shantelle Route PRN Reason Start Time Stop Time Status Last Admin Dose Admin Dextrose (Dextrose 50%) 25 ml Q30M PRN IV Hypoglycemia 05/02/19 15:00 05/29/19 12:29 Dextrose (Dextrose 50%) 50 ml Q30M PRN IV Hypoglycemia 05/02/19 15:00 05/29/19 12:29 Heparin Sodium/ Dextrose 500 ml @ 18.506 mls/ hr ADJUST PER PROTOCOL IV 05/02/19 15:15 05/30/19 15:14 05/02/19 15:17 Insulin Aspart (NovoLOG) BEFORE MEALS AND HS SUBQ 05/02/19 16:30 05/29/19 13:29 05/02/19 17:27 Magnesium Hydroxide (Mom) 30 ml DAILYPRN PRN ORAL Constipation 05/02/19 16:15 05/31/19 16:14 Magnesium Oxide (Mag-Ox 400mg) 400 mg THREE TIMES A DAY ORAL 05/02/19 18:00 05/30/19 08:59 05/02/19 17:25 Potassium Chloride (K-Dur) 40 meq DAILY ORAL 05/03/19 09:00 05/24/19 10:59 Warfarin Sodium (Coumadin per pharmacy) 1 ea DAILY PRN MISC Per rx protocol 05/03/19 09:00 05/29/19 07:29 Allergies: Coded Allergies: No Known Allergies (Unverified , 03/10/19) ROS Limited/Unobtainable: No Constitutional: Reports: no symptoms HEENT: Reports: no symptoms Cardiovascular: Reports: no symptoms Respiratory: Reports: no symptoms Gastrointestinal/Abdominal: Reports: no symptoms Genitourinary: Reports: no symptoms Neurologic/Psychiatric: Reports: no symptoms Subjective 84 YO F admitted with abdominal pain. S/P exploratory laparotomy 03/10/19. Now intra-abdominal abscess. Cover for Int Med-Dr Silva. Objective Last Vital Signs Date Time Temp Pulse Resp B/P (MAP) Pulse Ox O2 Delivery O2 Flow Rate FiO2 05/02/19 16:00 97.4 104 20 118/74 (89) 99 05/02/19 09:00 Room Air Laboratory Tests Test 05/02/19 04:00 White Blood Count 4.0 K/UL (4.8-10.8) L Red Blood Count 3.93 M/UL (4.20-5.40) L Hemoglobin 10.0 G/DL (12.0-16.0) L Hematocrit 31.5 % (37.0-47.0) L Mean Corpuscular Volume 80 FL (80-99) Mean Corpuscular Hemoglobin 25.3 PG (27.0-31.0) L Mean Corpuscular Hemoglobin Concent 31.6 G/DL (32.0-36.0) L Red Cell Distribution Width 15.7 % (11.6-14.8) H Platelet Count 213 K/UL (150-450) Mean Platelet Volume 7.4 FL (6.5-10.1) Neutrophils (%) (Auto) % (45.0-75.0) Lymphocytes (%) (Auto) % (20.0-45.0) Monocytes (%) (Auto) % (1.0-10.0) Eosinophils (%) (Auto) % (0.0-3.0) Basophils (%) (Auto) % (0.0-2.0) Differential Total Cells Counted 100 Neutrophils % (Manual) 28 % (45-75) L Lymphocytes % (Manual) 52 % (20-45) H Monocytes % (Manual) 11 % (1-10) H Eosinophils % (Manual) 8 % (0-3) H Basophils % (Manual) 1 % (0-2) Band Neutrophils 0 % (0-8) Platelet Estimate Adequate Platelet Morphology Normal Hypochromasia 2+ Anisocytosis 1+ Microcytosis 2+ Prothrombin Time 12.7 SEC (9.30-11.50) H Prothromb Time International Ratio 1.2 (0.9-1.1) H Activated Partial Thromboplast Time 78 SEC (23-33) H Sodium Level 137 MMOL/L (136-145) Potassium Level 4.1 MMOL/L (3.5-5.1) Chloride Level 106 MMOL/L (98-107) Carbon Dioxide Level 23 MMOL/L (21-32) Anion Gap 8 mmol/L (5-15) Blood Urea Nitrogen 11 mg/dL (7-18) Creatinine 0.7 MG/DL (0.55-1.30) Estimat Glomerular Filtration Rate mL/min (>60) Glucose Level 159 MG/DL (74-106) H Calcium Level 9.2 MG/DL (8.5-10.1) Intake and Output 05/01/19 05/02/19 18:59 06:59 Intake Total 906.0 ml 431.537 ml Output Total 300 ml 4 ml Balance 606.0 ml 427.537 ml Intake Oral 720 ml 240 ml IV Total 186.0 ml 191.537 ml Output Urine Total 300 ml 4 ml # Voids 3 # Bowel Movements 1 Objective PHYSICAL EXAMINATION: GENERAL: The patient is a well developed, well nourished female who is intubated and sedated. HEENT: Eyes, pupils equal and responsive to light and accommodation. Extraocular movements are intact. NECK: Supple without lymphadenopathy. CHEST: Nasc canula; Few diffuse wheezes bilaterally. Otherwise, without wheezes or rales. CARDIOVASCULAR: Regular rhythm rate. S1-S2 are normal without murmurs, rubs, or gallops. ABDOMEN: NGT; Soft, nontender with decreased bowel sounds. No evidence of hepatosplenomegaly. no rebound or guarding noted. EXTREMITIES: Negative for clubbing, cyanosis, edema. RECTAL/GENITAL: Not performed. NEUROLOGIC: Cranial nerves II through XII are grossly intact without focal deficits. Assessment/Plan Assessment/Plan ASSESSMENT: This is an 84-year-old female. 1. Perforated gastric ulcer 2. Abdominal pain. 3. Nausea with vomiting. 4. Diabetes type 2. 5. Hypertension. 6. Post Op fever-resolved 7. Leukocytosis 8. Intraabdominal abscess 9. Near syncope TREATMENT: 1. Perforated gastric ulcer. A General Surgery consultation has been obtained with Dr. Sheth. S/P exploratory laparotomy 03/10/19=perforated Pre pyloric ulcer. Tolerating regular diet; NGT discontinued per surgery 2. Diabetes type 2. NovoLog sliding scale has been instituted. 3. Hypertension. The patient is currently hypotensive. 4. Respiratory failure. S/P extubation 03/12/19. A Pulmonary consultation has been obtained with Dr. Bibiana Pennington. 5. Med/surg 6. ABX=S/P cefepime and flagyl for 6 weeks-end date 05/01/19 per ID 7. Surgical intervention on hold for intraabdominal abscess-see surgery note. Will require 6 weeks of ertapenem per ID 8. WBC now normal; Discharge planning 9. CT abdomen/pelvis results from 04/13/19=right adnexal phlegmon 10. CT angio head/neck=no stenosis 11. Discharge in am to home Zen Paige MD May 02, 2019 18:35
--- NOTE | 2019-05-02 19:11 | NUR ---
HAND-OFF: Report given to SARAI Mulligan. Pt is stable.
--- NOTE | 2019-05-02 19:12 | NUR ---
NURSE NOTES: Received report from SARAI Woodall. Patient sitting up, family at bedside. Encouraged to call as needed. Denies pain. Bed in low position, locked, side rails up x2, call light within reach. will continue to monitor.
[2019-05-02 20:00] VITALS: BP 125/83
[2019-05-03] VITALS: BP 123/71
[2019-05-03 05:18] LABS: HEMATOCRIT 31.9 % (37.0-47.0); HEMOGLOBIN 10.1 G/DL (12.0-16.0); MEAN CORPUSCULAR VOLUME 80 FL (80-99); PLATELET COUNT 217 K/UL (150-450); RED BLOOD COUNT 4.01 M/UL (4.20-5.40); RED CELL DISTRIBUTION WIDTH 15.7 % (11.6-14.8); WHITE BLOOD COUNT 3.8 K/UL (4.8-10.8)
[2019-05-03 05:38] LABS: INR 1.7 (0.9-1.1)
[2019-05-03 05:47] LABS: ALANINE AMINOTRANSFERASE 16 U/L (12-78); ALBUMIN 2.8 G/DL (3.4-5.0); ALBUMIN/GLOBULIN RATIO 0.8 (1.0-2.7); ALKALINE PHOSPHATASE 85 U/L (46-116); ANION GAP 7 mmol/L (5-15); ASPARTATE AMINO TRANSFERASE 20 U/L (15-37); BILIRUBIN,TOTAL 0.3 MG/DL (0.2-1.0); BLOOD UREA NITROGEN 13 mg/dL (7-18); CARBON DIOXIDE 24 MMOL/L (21-32); CHLORIDE 108 MMOL/L (98-107); CREATININE 0.6 MG/DL (0.55-1.30); PHOSPHORUS 3.7 MG/DL (2.5-4.9); SODIUM 139 MMOL/L (136-145)
--- NOTE | 2019-05-03 06:40 | NUR ---
NURSE NOTES: Per heparin protocol, PTT 79, no change needed, repeat PTT in AM
[2019-05-03] MEDS: NovoLOG Insulin Flexpen SUBQ SCH ×4 (06:47→21:34)
--- NOTE | 2019-05-03 07:20 | NUR ---
HAND-OFF: Report given to SARAI Madrid.
--- NOTE | 2019-05-03 07:44 | NUR ---
NURSE NOTES: PT AXOX3, CALM, SITTING ON SIDE OF BED EATING BREAKFAST. DENIES PAIN. IN NO APPARENT DISTRESS AT THIS TIME. BED IN LOWEST POSITION WITH BEDSIDE RAILS X2 RAISED. CALL LIGHT WITHIN REACH. IV ACCESS ON RIGHT FOREARM ASYMPTOMATIC, PATENT AND INTACT. HEPARIN DRIP RUNNING AT 20 UNITS/KG/HR, 18.6CC/H. PER REPORT FROM SARAI PETER, PTT IS 79 TODAY AND NO CHANGE TO RATE PER PHARMACY. WILL CONTINUE TO MONITOR.
[2019-05-03 08:00] VITALS: BP 132/74
[2019-05-03] MEDS: Magnesium Oxide 400mg tab ORAL SCH ×3 (08:17→17:12)
--- NOTE | 2019-05-03 10:47 | Nephrology Progress Note ---
Assessment/Plan Problem List: (1) Perforated abdominal viscus (2) Hypokalemia (3) Hypomagnesemia (4) Diabetes mellitus (5) Anemia Assessment WBC rising Post lap on 03/10 Low K Low Phos Low Mag Anemia DM h/o HTN Plan mag supplement needed Had an episode of weakness and presyncope, was in icu no on Tele now hemodynamics and neuro is baseline today's labs pending 05/01 change all to orals Mag and K and Phos IV as needed Keep BP and BS in check per orders DC planning Subjective ROS Limited/Unobtainable: No Constitutional: Reports: malaise Objective Objective Last 24 Hour Vital Signs Date Time Temp Pulse Resp B/P (MAP) Pulse Ox O2 Delivery O2 Flow Rate FiO2 05/03/19 08:00 97.3 107 18 132/74 (93) 96 05/03/19 00:00 98.1 99 18 123/71 (88) 99 05/02/19 21:00 Room Air 05/02/19 20:00 97.5 99 18 125/83 (97) 100 05/02/19 16:00 97.4 104 20 118/74 (89) 99 05/02/19 12:00 93 05/02/19 12:00 98.0 81 20 120/65 (83) 100 Intake and Output 05/02/19 05/03/19 19:00 07:00 Intake Total 955.518 ml 258.506 ml Balance 955.518 ml 258.506 ml Intake Oral 900 ml 240 ml IV Total 55.518 ml 18.506 ml # Voids 2 2 Laboratory Tests 05/03/19 04:40: White Blood Count 3.8L, Red Blood Count 4.01L, Hemoglobin 10.1L, Hematocrit 31.9L, Mean Corpuscular Volume 80, Mean Corpuscular Hemoglobin 25.2L, Mean Corpuscular Hemoglobin Concent 31.7L, Red Cell Distribution Width 15.7H, Platelet Count 217, Mean Platelet Volume 6.9, Neutrophils (%) (Auto) , Lymphocytes (%) (Auto) , Monocytes (%) (Auto) , Eosinophils (%) (Auto) , Basophils (%) (Auto) , Differential Total Cells Counted 100, Neutrophils % ( Manual) 25L, Lymphocytes % (Manual) 57H, Monocytes % (Manual) 14H, Eosinophils % (Manual) 4H, Basophils % (Manual) 0, Band Neutrophils 0, Platelet Estimate Adequate, Platelet Morphology Normal, Hypochromasia 1+, Anisocytosis 1+, Erythrocyte Sedimentation Rate 41H, Prothrombin Time 17.8H, Prothromb Time International Ratio 1.7H, Activated Partial Thromboplast Time 79H, Sodium Level 139, Potassium Level 4.0, Chloride Level 108H, Carbon Dioxide Level 24, Anion Gap 7, Blood Urea Nitrogen 13, Creatinine 0.6, Estimat Glomerular Filtration Rate , Glucose Level 129H, Calcium Level 9.0, Phosphorus Level 3.7, Magnesium Level 1.5L, Total Bilirubin 0.3, Aspartate Amino Transf (AST/SGOT) 20, Alanine Aminotransferase (ALT/SGPT) 16, Alkaline Phosphatase 85, C-Reactive Protein, Quantitative < 0.4, Total Protein 6.2L, Albumin 2.8L, Globulin 3.4, Albumin/ Globulin Ratio 0.8L Height (Feet): 5 Height (Inches): 0.00 Weight (Pounds): 102 General Appearance: no apparent distress Objective no change El Clark MD May 03, 2019 10:47
[2019-05-03 12:00] VITALS: BP 116/71
--- NOTE | 2019-05-03 13:06 | Infectious Diseases Prog Note ---
Assessment/Plan Assessment/Plan Near syncope -04/30 CTA head: No occlusion or high grade stenosis. 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 Comparison with prior study of 03/27/2019 is difficult, due to lack of IV contrast administration currently. However, there appears to be likely decreased discrete fluid but is perhaps slightly increased phlegmon component. In addition, the appendix appears distended with fluid currently but intact. The significance of this finding and he of the surrounding abnormalities is uncertain. There is also a tiny 13 mm collection in the right perirectal region which is unchanged Persistent distention of the endometrium with fluid Slightly increased infiltration of the omental fat adjacent to the distal greater curvature of the stomach without discrete fluid collection. This may represent progressive postsurgical scarring. 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 Right adnexal region irregular fluid collection, corresponding to findings reported on recent CT scan. This is contiguous with an immediately adjacent segment of bowel.This likewise corresponds to findings on recent CT. Note that the fluid collection and extent are better delineated on the prior study. Nonvisualized left ovary -CT abd/p: Markedly thickened and fluid-filled endometrium. 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 Complex multilobulated fluid collection with areas of enhancing soft tissue in the right adnexal region. This measures 5.5 x 7 x 3.9 cm. There is also a second tiny collection adjacent to the distal rectum. One possible etiology is, given the above finding, a tubo-ovarian abscess, related to retrograde propagation of endometritis. A second possibility is that this represents acute diverticulitis with peridiverticular abscess, given the close relationship with the distal sigmoid colon. A third possibility is this represents an abscess related to infected pelvic fluid from the prior gastric perforation, as the previous exam did demonstrate a small amount of free fluid in the pelvis. Finally, given the presence of the appendix (which isprominent in caliber) at the edge of the collection, this could represent perforated acute distal appendicitis. However, this is deemed less likely. Evidence of interim repair of previously demonstrated perforated gastric ulcer. No evidence of contrast leakage. No abnormal fluid collection at the operative site. Colonic diverticulosis. Slight rim enhancement of the gallbladder. Slight pericholecystic fluid. However, the gallbladder is nondistended, so doubt significance of this. Bilateral basilar pulmonary parenchymal groundglass opacity, likely on the basis of mild pulmonary edema Perforated pre-pyloric gastric ulcer -03/15 s/p UGI series: Negative for postoperative leak -03/10 SP 03/10 SP Exploratory Laparotomy, Abdominal washout. Partial omentectomy. Shane patch for repair of perforated pre-pyloric ulcer. -03/10 CT abd/p: Free intraperitoneal gas. Etiology not completely certain, but gas within and extending from the anterior gastric antral wall is suspicious for a perforated gastric ulcer. Perforated descending colon diverticulitis also possible but deemed much less likely. Free intraperitoneal fluid, presumably related to the above. Fatty liver. Basilar pulmonary parenchymal groundglass opacities. This could indicate pulmonary edema, among other possibilities. Subcentimeter low-attenuation renal lesions, too small to characterize, most likely benign simple cyst. No further follow-up necessary. 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 Acute encephalopathy, Sp -CT head: Chronic and age-related changes. Negative for acute intracranial bleed or mass effect VDRF, post-op; extubated 03/12 DARRON, SP Dm2 HTN Plan: -Continue to monitor off antibiotics -cleared for discharge from ID stand point. -05/01 SP Flagyl #37 -04/30 SP Cefepime #41 -03/22 SP Fluconazole #10 -03/15 SP Zosyn #6 -03/10 SP IV Vancomycin #1, Ancef x1 -Monitor CBC/CMP, temperatures -wound care per surgical team -aspiration precautions -f/u EEG -Neuro eval Subjective Allergies: Coded Allergies: No Known Allergies (Unverified , 03/10/19) Subjective afebrile no leukcoytosis discharge planning pending therapeutic INR Objective Vital Signs Last 24 Hour Vital Signs Date Time Temp Pulse Resp B/P (MAP) Pulse Ox O2 Delivery O2 Flow Rate FiO2 05/03/19 12:00 98.2 88 17 116/71 (86) 95 05/03/19 09:00 Room Air 05/03/19 08:00 97.3 107 18 132/74 (93) 96 05/03/19 00:00 98.1 99 18 123/71 (88) 99 05/02/19 21:00 Room Air 05/02/19 20:00 97.5 99 18 125/83 (97) 100 05/02/19 16:00 97.4 104 20 118/74 (89) 99 Height (Feet): 5 Height (Inches): 0.00 Weight (Pounds): 102 Objective General appearance: alert, cooperative, no distress, appears stated age Head: Normocephalic, without obvious abnormality, atraumatic Eyes: conjunctivae/corneas clear. PERRL, EOM's intact. Fundi benign Throat: Lips, mucosa, and tongue normal. Teeth and gums normal Neck: supple, symmetrical, trachea midline, no adenopathy, thyroid: not enlarged, symmetric, no tenderness/mass/nodules, no carotid bruit and no JVD Lungs: clear to auscultation bilaterally Heart: regular rate and rhythm, S1, S2 normal, no murmur, click, rub or gallop Abdomen: soft, peritonitis with tender. Bowel sounds normal. No masses, no organomegaly Extremities: extremities normal, atraumatic, no cyanosis or edema Pulses: 2+ and symmetric Skin: Skin color, texture, turgor normal. No rashes or lesions Neurologic: Grossly normal Laboratory Tests Test 05/03/19 04:40 White Blood Count 3.8 K/UL (4.8-10.8) L Red Blood Count 4.01 M/UL (4.20-5.40) L Hemoglobin 10.1 G/DL (12.0-16.0) L Hematocrit 31.9 % (37.0-47.0) L Mean Corpuscular Volume 80 FL (80-99) Mean Corpuscular Hemoglobin 25.2 PG (27.0-31.0) L Mean Corpuscular Hemoglobin Concent 31.7 G/DL (32.0-36.0) L Red Cell Distribution Width 15.7 % (11.6-14.8) H Platelet Count 217 K/UL (150-450) Mean Platelet Volume 6.9 FL (6.5-10.1) Neutrophils (%) (Auto) % (45.0-75.0) Lymphocytes (%) (Auto) % (20.0-45.0) Monocytes (%) (Auto) % (1.0-10.0) Eosinophils (%) (Auto) % (0.0-3.0) Basophils (%) (Auto) % (0.0-2.0) Differential Total Cells Counted 100 Neutrophils % (Manual) 25 % (45-75) L Lymphocytes % (Manual) 57 % (20-45) H Monocytes % (Manual) 14 % (1-10) H Eosinophils % (Manual) 4 % (0-3) H Basophils % (Manual) 0 % (0-2) Band Neutrophils 0 % (0-8) Platelet Estimate Adequate Platelet Morphology Normal Hypochromasia 1+ Anisocytosis 1+ Erythrocyte Sedimentation Rate 41 MM/HR (0-30) H Prothrombin Time 17.8 SEC (9.30-11.50) H Prothromb Time International Ratio 1.7 (0.9-1.1) H Activated Partial Thromboplast Time 79 SEC (23-33) H Sodium Level 139 MMOL/L (136-145) Potassium Level 4.0 MMOL/L (3.5-5.1) Chloride Level 108 MMOL/L (98-107) H Carbon Dioxide Level 24 MMOL/L (21-32) Anion Gap 7 mmol/L (5-15) Blood Urea Nitrogen 13 mg/dL (7-18) Creatinine 0.6 MG/DL (0.55-1.30) Estimat Glomerular Filtration Rate mL/min (>60) Glucose Level 129 MG/DL (74-106) H Calcium Level 9.0 MG/DL (8.5-10.1) Phosphorus Level 3.7 MG/DL (2.5-4.9) Magnesium Level 1.5 MG/DL (1.8-2.4) L Total Bilirubin 0.3 MG/DL (0.2-1.0) Aspartate Amino Transf (AST/SGOT) 20 U/L (15-37) Alanine Aminotransferase (ALT/SGPT) 16 U/L (12-78) Alkaline Phosphatase 85 U/L (46-116) C-Reactive Protein, Quantitative < 0.4 mg/dL (0.00-0.90) Total Protein 6.2 G/DL (6.4-8.2) L Albumin 2.8 G/DL (3.4-5.0) L Globulin 3.4 g/dL Albumin/Globulin Ratio 0.8 (1.0-2.7) L Current Medications Medications (Trade) Dose Ordered Sig/Shantelle Route PRN Reason Start Time Stop Time Status Last Admin Dose Admin Dextrose (Dextrose 50%) 25 ml Q30M PRN IV Hypoglycemia 05/02/19 15:00 05/29/19 12:29 Dextrose (Dextrose 50%) 50 ml Q30M PRN IV Hypoglycemia 05/02/19 15:00 05/29/19 12:29 Heparin Sodium/ Dextrose 500 ml @ 18.506 mls/ hr ADJUST PER PROTOCOL IV 05/02/19 15:15 05/30/19 15:14 05/02/19 15:17 Insulin Aspart (NovoLOG) BEFORE MEALS AND HS SUBQ 05/02/19 16:30 05/29/19 13:29 05/03/19 12:04 Magnesium Hydroxide (Mom) 30 ml DAILYPRN PRN ORAL Constipation 05/02/19 16:15 05/31/19 16:14 Magnesium Oxide (Mag-Ox 400mg) 400 mg THREE TIMES A DAY ORAL 05/02/19 18:00 05/30/19 08:59 05/03/19 08:17 Potassium Chloride (K-Dur) 40 meq DAILY ORAL 05/03/19 09:00 05/24/19 10:59 05/03/19 08:17 Warfarin Sodium (Coumadin per pharmacy) 1 ea DAILY PRN MISC Per rx protocol 05/03/19 09:00 05/29/19 07:29 Warfarin Sodium (Coumadin) 3 mg ONCE ORAL 05/03/19 17:00 05/03/19 19:00 Janette Stallworth M.D. May 03, 2019 13:06
[2019-05-03 15:07] VITALS: BP 134/67
--- NOTE | 2019-05-03 15:15 | NUR ---
NURSE NOTES: RN WAS WALKING WITH PT AROUND NURSING UNIT. PT USING FWW TO AMBULATE. PT STARTED TO SHAKE AND 2 STAFF HELPED PT ON HER KNEES TO THE FLOOR. PT DID NOT FALL. PT WAS UNABLE TO CONTINUE STANDING SO 2 STAFF ASSISTED PT TO KNEELING POSITION ON THE FLOOR. WHEELCHAIR WAS OBTAINED AND PT TAKEN BACK TO ROOM. PT IS ALERT AND ORIENTED X3, AT BASELINE. VITALS STABLE: BP 134/67, PULSE 95, ON ROOM AIR WITH O2 SAT 96%. CRN MADE AWARE AND RN LEFT MESSAGE FOR DR PLUNKETT. PT IN NO APPARENT DISTRESS AT THIS TIME. BED IN LOWEST POSITION WITH BEDSIDE RAILS X2 RAISED. BED ALARM ON. CALL LIGHT PLACED WITHIN REACH. NURSE NOTES:
--- NOTE | 2019-05-03 15:28 | Surgery Progress Note ---
Surgery Progress Note Subjective Procedure Performed ex lap with imelda patch, washout, omentectomy Symptoms: improved, pain absent, tolerating diet, voiding well, passing flatus , BM Additional Comments doing well cleared for discharge Objective Last 24 Hour Vital Signs Date Time Temp Pulse Resp B/P (MAP) Pulse Ox O2 Delivery O2 Flow Rate FiO2 05/03/19 15:07 97.8 95 18 134/67 (89) 96 95 05/03/19 12:00 98.2 88 17 116/71 (86) 95 05/03/19 09:00 Room Air 05/03/19 08:00 97.3 107 18 132/74 (93) 96 05/03/19 00:00 98.1 99 18 123/71 (88) 99 05/02/19 21:00 Room Air 05/02/19 20:00 97.5 99 18 125/83 (97) 100 05/02/19 16:00 97.4 104 20 118/74 (89) 99 I&O Intake and Output 05/02/19 05/03/19 19:00 07:00 Intake Total 955.518 ml 258.506 ml Balance 955.518 ml 258.506 ml Intake Oral 900 ml 240 ml IV Total 55.518 ml 18.506 ml # Voids 2 2 Dressing: dry Wound: dry Cardiovascular: RSR Respiratory: clear Abdomen: soft, flat, non-tender, present bowel sounds Extremities: no edema, no tenderness, no cyanosis Laboratory Tests Test 05/03/19 04:40 White Blood Count 3.8 K/UL (4.8-10.8) L Red Blood Count 4.01 M/UL (4.20-5.40) L Hemoglobin 10.1 G/DL (12.0-16.0) L Hematocrit 31.9 % (37.0-47.0) L Mean Corpuscular Volume 80 FL (80-99) Mean Corpuscular Hemoglobin 25.2 PG (27.0-31.0) L Mean Corpuscular Hemoglobin Concent 31.7 G/DL (32.0-36.0) L Red Cell Distribution Width 15.7 % (11.6-14.8) H Platelet Count 217 K/UL (150-450) Mean Platelet Volume 6.9 FL (6.5-10.1) Neutrophils (%) (Auto) % (45.0-75.0) Lymphocytes (%) (Auto) % (20.0-45.0) Monocytes (%) (Auto) % (1.0-10.0) Eosinophils (%) (Auto) % (0.0-3.0) Basophils (%) (Auto) % (0.0-2.0) Differential Total Cells Counted 100 Neutrophils % (Manual) 25 % (45-75) L Lymphocytes % (Manual) 57 % (20-45) H Monocytes % (Manual) 14 % (1-10) H Eosinophils % (Manual) 4 % (0-3) H Basophils % (Manual) 0 % (0-2) Band Neutrophils 0 % (0-8) Platelet Estimate Adequate Platelet Morphology Normal Hypochromasia 1+ Anisocytosis 1+ Erythrocyte Sedimentation Rate 41 MM/HR (0-30) H Prothrombin Time 17.8 SEC (9.30-11.50) H Prothromb Time International Ratio 1.7 (0.9-1.1) H Activated Partial Thromboplast Time 79 SEC (23-33) H Sodium Level 139 MMOL/L (136-145) Potassium Level 4.0 MMOL/L (3.5-5.1) Chloride Level 108 MMOL/L (98-107) H Carbon Dioxide Level 24 MMOL/L (21-32) Anion Gap 7 mmol/L (5-15) Blood Urea Nitrogen 13 mg/dL (7-18) Creatinine 0.6 MG/DL (0.55-1.30) Estimat Glomerular Filtration Rate mL/min (>60) Glucose Level 129 MG/DL (74-106) H Calcium Level 9.0 MG/DL (8.5-10.1) Phosphorus Level 3.7 MG/DL (2.5-4.9) Magnesium Level 1.5 MG/DL (1.8-2.4) L Total Bilirubin 0.3 MG/DL (0.2-1.0) Aspartate Amino Transf (AST/SGOT) 20 U/L (15-37) Alanine Aminotransferase (ALT/SGPT) 16 U/L (12-78) Alkaline Phosphatase 85 U/L (46-116) C-Reactive Protein, Quantitative < 0.4 mg/dL (0.00-0.90) Total Protein 6.2 G/DL (6.4-8.2) L Albumin 2.8 G/DL (3.4-5.0) L Globulin 3.4 g/dL Albumin/Globulin Ratio 0.8 (1.0-2.7) L Assessment Post-op Diagnosis perforated prepyloric gastric ulcer Plan Problems: (1) Peritonitis Assessment & Plan: 84F with perforated abdominal viscus likely gastric perforation based on CT findings s/p imelda patch recovering labs improved exam improved advance diet anna removed CT and US noted repeat CT noted Unusual fluid and phlegmon changes seen in the right adnexal region. Comparison with prior study of 03/27/2019 is difficult, due to lack of IV contrast administration currently. However, there appears to be likely decreased discrete fluid but is perhaps slightly increased phlegmon component. In addition, the appendix appears distended with fluid currently but intact. The significance of this finding and he of the surrounding abnormalities is uncertain. There is also a tiny 13 mm collection in the right perirectal region which is unchanged Persistent distention of the endometrium with fluid Slightly increased infiltration of the omental fat adjacent to the distal greater curvature of the stomach without discrete fluid collection. This may represent progressive postsurgical scarring. Other findings as noted, including degenerative spondylosis, left hip prosthesis , old healed left inferior pubic ramus fracture abd fluid collection possible abscess unable to drain via IR can consider surgical drainage but would be high risk and with morbidity and mortality risk given age and medical condition family aware Patient is completed 6 weeks of IV antibiotics. Discharge planning exam benign will monitor thank you (2) Perforated abdominal viscus Mike Sheth May 03, 2019 15:28
--- NOTE | 2019-05-03 15:30 | NUR ---
NURSE NOTES: RN SPOKE TO YAJAIRA, SON, AND MADE AWARE OF PT SHAKING AND UNABLE TO WALK LONG DISTANCE. PER YAJAIRA, HE WILL SIGN OUT HIS MOTHER FROM [facility]. RN EDUCATED YAJAIRA THAT PT IS STILL BEING TREATED FOR BLOOD CLOT AND IS ON HEPARIN. PER YAJAIRA, HIS MOTHER HAS A DOCTOR IN [place] WHO CAN TREAT HER WHEN SHE RETURNS AND FEELS FRUSTRATED HE WAS NOT ABLE TO TALK TO DOCTORS REGARDING PLAN OF CARE. YAJAIRA WAS EDUCATED DR JUAREZ WORKS WITH DR PLUNKETT AND IS PRIMARY ON THE CASE. RN WILL LEAVE MESSAGE FOR DR JUAREZ TO CALL YAJAIRA AND GIVE CONTACT NUMBER. YAJAIRA STATED HE FEELS SHE HAS BEEN AT THE HOSPITAL FOR TOO LONG AND IS TIME TO GO. PER YAJAIRA, HE WILL BE AT THE HOSPITAL AROUND 7:00 PM.
[2019-05-03 16:00] VITALS: BP 119/73
[2019-05-03] MEDS: Heparin 25,000u/D5W 500ml 500 ML IV SCH (16:30)
[2019-05-03] MEDS ORDERED: Warfarin Sodium 3mg ORAL SCH (17:00)
--- NOTE | 2019-05-03 18:00 | Internal Med Progress Note ---
Subjective Date of Service: May 03, 2019 Physician Name Zen Paige Attending Physician Marcos Silva MD Current Medications Medications (Trade) Dose Ordered Sig/Shantelle Route PRN Reason Start Time Stop Time Status Last Admin Dose Admin Dextrose (Dextrose 50%) 25 ml Q30M PRN IV Hypoglycemia 05/02/19 15:00 05/29/19 12:29 Dextrose (Dextrose 50%) 50 ml Q30M PRN IV Hypoglycemia 05/02/19 15:00 05/29/19 12:29 Heparin Sodium/ Dextrose 500 ml @ 18.506 mls/ hr ADJUST PER PROTOCOL IV 05/02/19 15:15 05/30/19 15:14 05/03/19 16:30 Insulin Aspart (NovoLOG) BEFORE MEALS AND HS SUBQ 05/02/19 16:30 05/29/19 13:29 05/03/19 16:44 Magnesium Hydroxide (Mom) 30 ml DAILYPRN PRN ORAL Constipation 05/02/19 16:15 05/31/19 16:14 Magnesium Oxide (Mag-Ox 400mg) 400 mg THREE TIMES A DAY ORAL 05/02/19 18:00 05/30/19 08:59 05/03/19 17:12 Potassium Chloride (K-Dur) 40 meq DAILY ORAL 05/03/19 09:00 05/24/19 10:59 05/03/19 08:17 Warfarin Sodium (Coumadin per pharmacy) 1 ea DAILY PRN MISC Per rx protocol 05/03/19 09:00 05/29/19 07:29 Warfarin Sodium (Coumadin) 3 mg ONCE ORAL 05/03/19 17:00 05/03/19 19:00 05/03/19 17:13 Allergies: Coded Allergies: No Known Allergies (Unverified , 03/10/19) ROS Limited/Unobtainable: No Constitutional: Reports: no symptoms HEENT: Reports: no symptoms Cardiovascular: Reports: no symptoms Respiratory: Reports: no symptoms Gastrointestinal/Abdominal: Reports: no symptoms Genitourinary: Reports: no symptoms Neurologic/Psychiatric: Reports: no symptoms Subjective 84 YO F admitted with abdominal pain. S/P exploratory laparotomy 03/10/19. Now intra-abdominal abscess. Cover for Int Marcus-Dr Silva. Objective Last Vital Signs Date Time Temp Pulse Resp B/P (MAP) Pulse Ox O2 Delivery O2 Flow Rate FiO2 05/03/19 16:00 99.1 101 20 119/73 (88) 97 05/03/19 09:00 Room Air Laboratory Tests Test 05/03/19 04:40 White Blood Count 3.8 K/UL (4.8-10.8) L Red Blood Count 4.01 M/UL (4.20-5.40) L Hemoglobin 10.1 G/DL (12.0-16.0) L Hematocrit 31.9 % (37.0-47.0) L Mean Corpuscular Volume 80 FL (80-99) Mean Corpuscular Hemoglobin 25.2 PG (27.0-31.0) L Mean Corpuscular Hemoglobin Concent 31.7 G/DL (32.0-36.0) L Red Cell Distribution Width 15.7 % (11.6-14.8) H Platelet Count 217 K/UL (150-450) Mean Platelet Volume 6.9 FL (6.5-10.1) Neutrophils (%) (Auto) % (45.0-75.0) Lymphocytes (%) (Auto) % (20.0-45.0) Monocytes (%) (Auto) % (1.0-10.0) Eosinophils (%) (Auto) % (0.0-3.0) Basophils (%) (Auto) % (0.0-2.0) Differential Total Cells Counted 100 Neutrophils % (Manual) 25 % (45-75) L Lymphocytes % (Manual) 57 % (20-45) H Monocytes % (Manual) 14 % (1-10) H Eosinophils % (Manual) 4 % (0-3) H Basophils % (Manual) 0 % (0-2) Band Neutrophils 0 % (0-8) Platelet Estimate Adequate Platelet Morphology Normal Hypochromasia 1+ Anisocytosis 1+ Erythrocyte Sedimentation Rate 41 MM/HR (0-30) H Prothrombin Time 17.8 SEC (9.30-11.50) H Prothromb Time International Ratio 1.7 (0.9-1.1) H Activated Partial Thromboplast Time 79 SEC (23-33) H Sodium Level 139 MMOL/L (136-145) Potassium Level 4.0 MMOL/L (3.5-5.1) Chloride Level 108 MMOL/L (98-107) H Carbon Dioxide Level 24 MMOL/L (21-32) Anion Gap 7 mmol/L (5-15) Blood Urea Nitrogen 13 mg/dL (7-18) Creatinine 0.6 MG/DL (0.55-1.30) Estimat Glomerular Filtration Rate mL/min (>60) Glucose Level 129 MG/DL (74-106) H Calcium Level 9.0 MG/DL (8.5-10.1) Phosphorus Level 3.7 MG/DL (2.5-4.9) Magnesium Level 1.5 MG/DL (1.8-2.4) L Total Bilirubin 0.3 MG/DL (0.2-1.0) Aspartate Amino Transf (AST/SGOT) 20 U/L (15-37) Alanine Aminotransferase (ALT/SGPT) 16 U/L (12-78) Alkaline Phosphatase 85 U/L (46-116) C-Reactive Protein, Quantitative < 0.4 mg/dL (0.00-0.90) Total Protein 6.2 G/DL (6.4-8.2) L Albumin 2.8 G/DL (3.4-5.0) L Globulin 3.4 g/dL Albumin/Globulin Ratio 0.8 (1.0-2.7) L Intake and Output 05/02/19 05/03/19 19:00 07:00 Intake Total 955.518 ml 258.506 ml Balance 955.518 ml 258.506 ml Intake Oral 900 ml 240 ml IV Total 55.518 ml 18.506 ml # Voids 2 2 Objective PHYSICAL EXAMINATION: GENERAL: The patient is a well developed, well nourished female who is intubated and sedated. HEENT: Eyes, pupils equal and responsive to light and accommodation. Extraocular movements are intact. NECK: Supple without lymphadenopathy. CHEST: Nasc canula; Few diffuse wheezes bilaterally. Otherwise, without wheezes or rales. CARDIOVASCULAR: Regular rhythm rate. S1-S2 are normal without murmurs, rubs, or gallops. ABDOMEN: NGT; Soft, nontender with decreased bowel sounds. No evidence of hepatosplenomegaly. no rebound or guarding noted. EXTREMITIES: Negative for clubbing, cyanosis, edema. RECTAL/GENITAL: Not performed. NEUROLOGIC: Cranial nerves II through XII are grossly intact without focal deficits. Assessment/Plan Assessment/Plan ASSESSMENT: This is an 84-year-old female. 1. Perforated gastric ulcer 2. Abdominal pain. 3. Nausea with vomiting. 4. Diabetes type 2. 5. Hypertension. 6. Post Op fever-resolved 7. Leukocytosis 8. Intraabdominal abscess 9. Near syncope TREATMENT: 1. Perforated gastric ulcer. A General Surgery consultation has been obtained with Dr. Sheth. S/P exploratory laparotomy 03/10/19=perforated Pre pyloric ulcer. Tolerating regular diet; NGT discontinued per surgery 2. Diabetes type 2. NovoLog sliding scale has been instituted. 3. Hypertension. The patient is currently hypotensive. 4. Respiratory failure. S/P extubation 03/12/19. A Pulmonary consultation has been obtained with Dr. Bibiana Pennington. 5. Med/surg 6. ABX=S/P cefepime and flagyl for 6 weeks-end date 05/01/19 per ID 7. Surgical intervention on hold for intraabdominal abscess-see surgery note. Will require 6 weeks of ertapenem per ID 8. WBC now normal; Discharge planning 9. CT abdomen/pelvis results from 04/13/19=right adnexal phlegmon 10. CT angio head/neck=no stenosis 11. Discharge in am to home Zen Paige MD May 03, 2019 18:00
--- NOTE | 2019-05-03 19:18 | NUR ---
HAND-OFF: Report given to Ezio JEREZ RN.
--- NOTE | 2019-05-03 19:41 | NUR ---
NURSE NOTES: Received patient in bed, family at bedside, patient is in no acute distress, on heparin drip, IV site is clean dry and intact. Call light is within reach, bed is in low position, locked and alarm is on, will continue to monitor for comfort and safety.
[2019-05-03 20:00] VITALS: BP 134/79
[2019-05-04] VITALS: BP 119/78
[2019-05-04 04:00] VITALS: BP 118/78
[2019-05-04 05:29] LABS: INR 2.1 (0.9-1.1)
[2019-05-04] MEDS ORDERED: Heparin 25,000u/D5W 500ml 500 ML IV SCH (06:00)
[2019-05-04] MEDS: NovoLOG Insulin Flexpen SUBQ SCH ×3 (06:15→17:06)
--- NOTE | 2019-05-04 06:51 | NUR ---
NURSE NOTES: PTT is 103, informed pharmacist at [facility], rate changed to 18.0. Started new rate per protocol, ordered PTT draw for 05/04 at 1300. CN was made aware.
--- NOTE | 2019-05-04 07:00 | NUR ---
NURSE NOTES: HANDOFF RECEIVED FROM SARAI ROSENTHAL. PATIENT AWAKE AND ALERT AND ABLE TO MAKE NEEDS KNOWN. PATIENT RESTING IN BED WITH NO PHYSICAL SIGNS OF DISTRESS. PATIENT HAS HEPARIN DRIP RUNNING, IV SITE IS CLEAN DRY AND INTACT. BED IS IN THE LOW AND LOCKED POSITION, WITH CALL LIGHT WITHIN REACH. WILL CONTINUE TO MONITOR PATIENT.
--- NOTE | 2019-05-04 07:32 | NUR ---
HAND-OFF: Report given to Juan Miguel MOON.
[2019-05-04 08:00] VITALS: BP 123/68
[2019-05-04] MEDS: Magnesium Oxide 400mg tab ORAL SCH ×3 (08:40→17:03)
--- NOTE | 2019-05-04 09:00 | NUR ---
NURSE NOTES: HEPARIN DRIP DISCONTINUED FOLLOWING DR'S ORDERS.
--- NOTE | 2019-05-04 11:46 | Internal Med Progress Note ---
Subjective Date of Service: May 04, 2019 Physician Name Zen Paige Attending Physician Marcos Silva MD Current Medications Medications (Trade) Dose Ordered Sig/Shantelle Route PRN Reason Start Time Stop Time Status Last Admin Dose Admin Dextrose (Dextrose 50%) 25 ml Q30M PRN IV Hypoglycemia 05/02/19 15:00 05/29/19 12:29 Dextrose (Dextrose 50%) 50 ml Q30M PRN IV Hypoglycemia 05/02/19 15:00 05/29/19 12:29 Insulin Aspart (NovoLOG) BEFORE MEALS AND HS SUBQ 05/02/19 16:30 05/29/19 13:29 05/04/19 06:15 Magnesium Hydroxide (Mom) 30 ml DAILYPRN PRN ORAL Constipation 05/02/19 16:15 05/31/19 16:14 Magnesium Oxide (Mag-Ox 400mg) 400 mg THREE TIMES A DAY ORAL 05/02/19 18:00 05/30/19 08:59 05/04/19 08:40 Potassium Chloride (K-Dur) 40 meq DAILY ORAL 05/03/19 09:00 05/24/19 10:59 05/04/19 08:41 Warfarin Sodium (Coumadin per pharmacy) 1 ea DAILY PRN MISC Per rx protocol 05/03/19 09:00 05/29/19 07:29 Warfarin Sodium (Coumadin) 2 mg ONCE ORAL 05/04/19 17:00 05/04/19 19:00 Allergies: Coded Allergies: No Known Allergies (Unverified , 03/10/19) ROS Limited/Unobtainable: No Constitutional: Reports: no symptoms HEENT: Reports: no symptoms Cardiovascular: Reports: no symptoms Respiratory: Reports: no symptoms Gastrointestinal/Abdominal: Reports: no symptoms Genitourinary: Reports: no symptoms Neurologic/Psychiatric: Reports: no symptoms Subjective 84 YO F admitted with abdominal pain. S/P exploratory laparotomy 03/10/19. Now intra-abdominal abscess. Cover for Int Med-Dr Silva. Objective Last Vital Signs Date Time Temp Pulse Resp B/P (MAP) Pulse Ox O2 Delivery O2 Flow Rate FiO2 05/04/19 08:50 Room Air 05/04/19 08:00 98.3 88 20 123/68 (86) 95 Laboratory Tests Test 05/04/19 04:00 Prothrombin Time 21.5 SEC (9.30-11.50) H Prothromb Time International Ratio 2.1 (0.9-1.1) H Activated Partial Thromboplast Time 103 SEC (23-33) H Intake and Output 05/03/19 05/04/19 18:59 06:59 Intake Total 1222.072 ml 92.530 ml Balance 1222.072 ml 92.530 ml Intake Oral 600 ml IV Total 622.072 ml 92.530 ml # Voids 4 Objective PHYSICAL EXAMINATION: GENERAL: The patient is a well developed, well nourished female who is intubated and sedated. HEENT: Eyes, pupils equal and responsive to light and accommodation. Extraocular movements are intact. NECK: Supple without lymphadenopathy. CHEST: Nasc canula; Few diffuse wheezes bilaterally. Otherwise, without wheezes or rales. CARDIOVASCULAR: Regular rhythm rate. S1-S2 are normal without murmurs, rubs, or gallops. ABDOMEN: NGT; Soft, nontender with decreased bowel sounds. No evidence of hepatosplenomegaly. no rebound or guarding noted. EXTREMITIES: Negative for clubbing, cyanosis, edema. RECTAL/GENITAL: Not performed. NEUROLOGIC: Cranial nerves II through XII are grossly intact without focal deficits. Assessment/Plan Assessment/Plan ASSESSMENT: This is an 84-year-old female. 1. Perforated gastric ulcer 2. Abdominal pain. 3. Nausea with vomiting. 4. Diabetes type 2. 5. Hypertension. 6. Post Op fever-resolved 7. Leukocytosis 8. Intraabdominal abscess 9. Near syncope 10. Deep venous thrombosis left popliteal vein TREATMENT: 1. Perforated gastric ulcer. A General Surgery consultation has been obtained with Dr. Sheth. S/P exploratory laparotomy 03/10/19=perforated Pre pyloric ulcer. Tolerating regular diet; NGT discontinued per surgery 2. Diabetes type 2. NovoLog sliding scale has been instituted. 3. Hypertension. The patient is currently hypotensive. 4. Respiratory failure. S/P extubation 03/12/19. A Pulmonary consultation has been obtained with Dr. Bibiana Pennington. 5. Med/surg 6. ABX=S/P cefepime and flagyl for 6 weeks-end date 05/01/19 per ID 7. Surgical intervention on hold for intraabdominal abscess-see surgery note. Will require 6 weeks of ertapenem per ID 8. WBC now normal; Discharge planning 9. CT abdomen/pelvis results from 04/13/19=right adnexal phlegmon 10. CT angio head/neck=no stenosis 11. INR=2.1 (therapeutic). D/C heparin; Continue coumadin per pharmacy protocol Zen Paige MD May 04, 2019 11:46
--- NOTE | 2019-05-04 11:50 | Infectious Diseases Prog Note ---
Assessment/Plan Assessment/Plan Near syncope -04/30 CTA head: No occlusion or high grade stenosis. EEG pending Fever, SP Leukocytosis, -S-p- Probable Sepsis- 2ry to likely intraabdominal abscess- ?source (post-op complication vs pullboat engineer or sigmoid origin) -04/13 Sp Unusual fluid and phlegmon changes seen in the right adnexal region. Comparison with prior study of 03/27/2019 is difficult, due to lack of IV contrast administration currently. However, there appears to be likely decreased discrete fluid but is perhaps slightly increased phlegmon component. In addition, the appendix appears distended with fluid currently but intact. The significance of this finding and he of the surrounding abnormalities is uncertain. There is also a tiny 13 mm collection in the right perirectal region which is unchanged Persistent distention of the endometrium with fluid Slightly increased infiltration of the omental fat adjacent to the distal greater curvature of the stomach without discrete fluid collection. This may represent progressive postsurgical scarring. 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 Right adnexal region irregular fluid collection, corresponding to findings reported on recent CT scan. This is contiguous with an immediately adjacent segment of bowel.This likewise corresponds to findings on recent CT. Note that the fluid collection and extent are better delineated on the prior study. Nonvisualized left ovary -CT abd/p: Markedly thickened and fluid-filled endometrium. 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 Complex multilobulated fluid collection with areas of enhancing soft tissue in the right adnexal region. This measures 5.5 x 7 x 3.9 cm. There is also a second tiny collection adjacent to the distal rectum. One possible etiology is, given the above finding, a tubo-ovarian abscess, related to retrograde propagation of endometritis. A second possibility is that this represents acute diverticulitis with peridiverticular abscess, given the close relationship with the distal sigmoid colon. A third possibility is this represents an abscess related to infected pelvic fluid from the prior gastric perforation, as the previous exam did demonstrate a small amount of free fluid in the pelvis. Finally, given the presence of the appendix (which isprominent in caliber) at the edge of the collection, this could represent perforated acute distal appendicitis. However, this is deemed less likely. Evidence of interim repair of previously demonstrated perforated gastric ulcer. No evidence of contrast leakage. No abnormal fluid collection at the operative site. Colonic diverticulosis. Slight rim enhancement of the gallbladder. Slight pericholecystic fluid. However, the gallbladder is nondistended, so doubt significance of this. Bilateral basilar pulmonary parenchymal groundglass opacity, likely on the basis of mild pulmonary edema Perforated pre-pyloric gastric ulcer -03/15 s/p UGI series: Negative for postoperative leak -03/10 SP 03/10 SP Exploratory Laparotomy, Abdominal washout. Partial omentectomy. Shane patch for repair of perforated pre-pyloric ulcer. -03/10 CT abd/p: Free intraperitoneal gas. Etiology not completely certain, but gas within and extending from the anterior gastric antral wall is suspicious for a perforated gastric ulcer. Perforated descending colon diverticulitis also possible but deemed much less likely. Free intraperitoneal fluid, presumably related to the above. Fatty liver. Basilar pulmonary parenchymal groundglass opacities. This could indicate pulmonary edema, among other possibilities. Subcentimeter low-attenuation renal lesions, too small to characterize, most likely benign simple cyst. No further follow-up necessary. 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 Acute encephalopathy, Sp -CT head: Chronic and age-related changes. Negative for acute intracranial bleed or mass effect VDRF, post-op; extubated 03/12 DARRON, SP Dm2 HTN Plan: -Continue to monitor off antibiotics -cleared for discharge from ID stand point. -05/01 SP Flagyl #37 -04/30 SP Cefepime #41 -03/22 SP Fluconazole #10 -03/15 SP Zosyn #6 -03/10 SP IV Vancomycin #1, Ancef x1 -Monitor CBC/CMP, temperatures -wound care per surgical team -aspiration precautions -f/u EEG -Neuro eval Subjective Allergies: Coded Allergies: No Known Allergies (Unverified , 03/10/19) Subjective afebrile no leukcoytosis discharge planning pending therapeutic INR; INR today is 2.1 Objective Vital Signs Last 24 Hour Vital Signs Date Time Temp Pulse Resp B/P (MAP) Pulse Ox O2 Delivery O2 Flow Rate FiO2 05/04/19 08:50 Room Air 05/04/19 08:00 98.3 88 20 123/68 (86) 95 05/04/19 04:00 97.0 78 18 118/78 (91) 95 05/04/19 00:00 97.3 78 18 119/78 (92) 95 05/03/19 21:00 Room Air 05/03/19 20:00 98.3 100 18 134/79 (97) 98 05/03/19 16:00 99.1 101 20 119/73 (88) 97 05/03/19 15:07 97.8 95 18 134/67 (89) 96 95 05/03/19 12:00 98.2 88 17 116/71 (86) 95 Height (Feet): 5 Height (Inches): 0.00 Weight (Pounds): 102 Objective General appearance: alert, cooperative, no distress, appears stated age Head: Normocephalic, without obvious abnormality, atraumatic Eyes: conjunctivae/corneas clear. PERRL, EOM's intact. Fundi benign Throat: Lips, mucosa, and tongue normal. Teeth and gums normal Neck: supple, symmetrical, trachea midline, no adenopathy, thyroid: not enlarged, symmetric, no tenderness/mass/nodules, no carotid bruit and no JVD Lungs: clear to auscultation bilaterally Heart: regular rate and rhythm, S1, S2 normal, no murmur, click, rub or gallop Abdomen: soft, peritonitis with tender. Bowel sounds normal. No masses, no organomegaly Extremities: extremities normal, atraumatic, no cyanosis or edema Pulses: 2+ and symmetric Skin: Skin color, texture, turgor normal. No rashes or lesions Neurologic: Grossly normal Laboratory Tests Test 05/04/19 04:00 Prothrombin Time 21.5 SEC (9.30-11.50) H Prothromb Time International Ratio 2.1 (0.9-1.1) H Activated Partial Thromboplast Time 103 SEC (23-33) H Current Medications Medications (Trade) Dose Ordered Sig/Shantelle Route PRN Reason Start Time Stop Time Status Last Admin Dose Admin Dextrose (Dextrose 50%) 25 ml Q30M PRN IV Hypoglycemia 05/02/19 15:00 05/29/19 12:29 Dextrose (Dextrose 50%) 50 ml Q30M PRN IV Hypoglycemia 05/02/19 15:00 05/29/19 12:29 Insulin Aspart (NovoLOG) BEFORE MEALS AND HS SUBQ 05/02/19 16:30 05/29/19 13:29 05/04/19 06:15 Magnesium Hydroxide (Mom) 30 ml DAILYPRN PRN ORAL Constipation 05/02/19 16:15 05/31/19 16:14 Magnesium Oxide (Mag-Ox 400mg) 400 mg THREE TIMES A DAY ORAL 05/02/19 18:00 05/30/19 08:59 05/04/19 08:40 Potassium Chloride (K-Dur) 40 meq DAILY ORAL 05/03/19 09:00 05/24/19 10:59 05/04/19 08:41 Warfarin Sodium (Coumadin per pharmacy) 1 ea DAILY PRN MISC Per rx protocol 05/03/19 09:00 05/29/19 07:29 Warfarin Sodium (Coumadin) 2 mg ONCE ORAL 05/04/19 17:00 05/04/19 19:00 Janette Stallworth M.D. May 04, 2019 11:50
[2019-05-04 12:00] VITALS: BP 125/76
[2019-05-04] MEDS ORDERED: COUMADIN1 MG ORAL (12:28)
--- NOTE | 2019-05-04 12:32 | Pulmonology Progress Note ---
Assessment/Plan Problems: (1) DVT (deep venous thrombosis) (2) Intra-abdominal abscess (3) Perforated abdominal viscus (4) S/P exploratory laparotomy (5) Septic shock (6) Diabetes mellitus (7) Peritonitis Assessment/Plan abx finished INR therapeutic improving on regular diet dc home with close f/u by primary for INR weekly Subjective ROS Limited/Unobtainable: No Constitutional: Reports: no symptoms HEENT: Repors: no symptoms Allergies: Coded Allergies: No Known Allergies (Unverified , 03/10/19) Objective Last 24 Hour Vital Signs Date Time Temp Pulse Resp B/P (MAP) Pulse Ox O2 Delivery O2 Flow Rate FiO2 05/04/19 12:00 98.0 96 20 125/76 (92) 95 05/04/19 08:50 Room Air 05/04/19 08:00 98.3 88 20 123/68 (86) 95 05/04/19 04:00 97.0 78 18 118/78 (91) 95 05/04/19 00:00 97.3 78 18 119/78 (92) 95 05/03/19 21:00 Room Air 05/03/19 20:00 98.3 100 18 134/79 (97) 98 05/03/19 16:00 99.1 101 20 119/73 (88) 97 05/03/19 15:07 97.8 95 18 134/67 (89) 96 95 Intake and Output 05/03/19 05/04/19 19:00 07:00 Intake Total 1203.566 ml 92.530 ml Balance 1203.566 ml 92.530 ml Intake Oral 600 ml IV Total 603.566 ml 92.530 ml # Voids 4 General Appearance: WD/WN HEENT: atraumatic, anicteric Respiratory/Chest: chest wall non-tender, lungs clear Cardiovascular: normal rate, regularly irregular Abdomen: normal bowel sounds, no organomegaly, no scars Extremities: no clubbing Laboratory Tests 05/04/19 04:00: Prothrombin Time 21.5H, Prothromb Time International Ratio 2.1H, Activated Partial Thromboplast Time 103H Current Medications Medications (Trade) Dose Ordered Sig/Shantelle Route PRN Reason Start Time Stop Time Status Last Admin Dose Admin Dextrose (Dextrose 50%) 25 ml Q30M PRN IV Hypoglycemia 05/02/19 15:00 05/29/19 12:29 Dextrose (Dextrose 50%) 50 ml Q30M PRN IV Hypoglycemia 05/02/19 15:00 05/29/19 12:29 Insulin Aspart (NovoLOG) BEFORE MEALS AND HS SUBQ 05/02/19 16:30 05/29/19 13:29 05/04/19 11:54 Magnesium Hydroxide (Mom) 30 ml DAILYPRN PRN ORAL Constipation 05/02/19 16:15 05/31/19 16:14 Magnesium Oxide (Mag-Ox 400mg) 400 mg THREE TIMES A DAY ORAL 05/02/19 18:00 05/30/19 08:59 05/04/19 08:40 Potassium Chloride (K-Dur) 40 meq DAILY ORAL 05/03/19 09:00 05/24/19 10:59 05/04/19 08:41 Warfarin Sodium (Coumadin per pharmacy) 1 ea DAILY PRN MISC Per rx protocol 05/03/19 09:00 05/29/19 07:29 Warfarin Sodium (Coumadin) 2 mg ONCE ORAL 05/04/19 17:00 05/04/19 19:00 Bibiana Pennington MD May 04, 2019 12:32
--- NOTE | 2019-05-04 12:47 | NUR ---
NURSE NOTES: PATIENT IS BEING DISCHARGED WITH A PRESCRIPTION FOR WARFARIN, NO FOLLOW UP APPOINTMENT MADE. DR BROOKE INFORMED ME TO NOTIFY SEBASTIAN THE SINKER WINDER, SO THAT SHE CAN FIND A FREE CLINIC THAT THE PATIENT CAN FOLLOW UP WITH FOR LABS. LEFT A MESSAGE FOR SEBASTIAN ASKING HER TO LOCATE A FREE CLINIC FOR THE PATIENT. PRESCRIPTION FAXED ACROSS THE [address] TO [facility].
--- NOTE | 2019-05-04 14:22 | NUR ---
Social Service Note Patient states her primary doctor is in [place]. Patient was prescribed medication from this physician. Patient states she has never received medical intervention in the [place] prior to this event. Community care clinic list provided to primary nurse. Prescriptions faxed to [facility] to obtain out of pocket cost. Since patient is non-insured SW is unable to arrange follow up appointment, patient will need to be screened by clinic for financial responsibility then will be seen by MD. ANASTASIYA recommends a copy of medical records be provided to patient to present to clinic regarding medical history.
--- NOTE | 2019-05-04 14:50 | Surgery Progress Note ---
Surgery Progress Note Subjective Procedure Performed ex lap with imelda patch, washout, omentectomy Additional Comments INR theraputic heparin gtt stopped d/c home Objective Last 24 Hour Vital Signs Date Time Temp Pulse Resp B/P (MAP) Pulse Ox O2 Delivery O2 Flow Rate FiO2 05/04/19 12:00 98.0 96 20 125/76 (92) 95 05/04/19 08:50 Room Air 05/04/19 08:00 98.3 88 20 123/68 (86) 95 05/04/19 04:00 97.0 78 18 118/78 (91) 95 05/04/19 00:00 97.3 78 18 119/78 (92) 95 05/03/19 21:00 Room Air 05/03/19 20:00 98.3 100 18 134/79 (97) 98 05/03/19 16:00 99.1 101 20 119/73 (88) 97 05/03/19 15:07 97.8 95 18 134/67 (89) 96 95 I&O Intake and Output 05/03/19 05/04/19 19:00 07:00 Intake Total 1203.566 ml 92.530 ml Balance 1203.566 ml 92.530 ml Intake Oral 600 ml IV Total 603.566 ml 92.530 ml # Voids 4 Laboratory Tests Test 05/04/19 04:00 05/04/19 13:15 Prothrombin Time 21.5 SEC (9.30-11.50) H Prothromb Time International Ratio 2.1 (0.9-1.1) H Activated Partial Thromboplast Time 103 SEC (23-33) H 29 SEC (23-33) Assessment Post-op Diagnosis perforated prepyloric gastric ulcer Plan Problems: (1) Peritonitis Assessment & Plan: 84F with perforated abdominal viscus likely gastric perforation based on CT findings s/p imelda patch recovering labs improved exam improved advance diet anna removed CT and US noted repeat CT noted Unusual fluid and phlegmon changes seen in the right adnexal region. Comparison with prior study of 03/27/2019 is difficult, due to lack of IV contrast administration currently. However, there appears to be likely decreased discrete fluid but is perhaps slightly increased phlegmon component. In addition, the appendix appears distended with fluid currently but intact. The significance of this finding and he of the surrounding abnormalities is uncertain. There is also a tiny 13 mm collection in the right perirectal region which is unchanged Persistent distention of the endometrium with fluid Slightly increased infiltration of the omental fat adjacent to the distal greater curvature of the stomach without discrete fluid collection. This may represent progressive postsurgical scarring. Other findings as noted, including degenerative spondylosis, left hip prosthesis , old healed left inferior pubic ramus fracture abd fluid collection possible abscess unable to drain via IR can consider surgical drainage but would be high risk and with morbidity and mortality risk given age and medical condition family aware Patient is completed 6 weeks of IV antibiotics. Discharge planning exam benign will monitor thank you (2) Perforated abdominal viscus Mike Sheth May 04, 2019 14:50
--- NOTE | 2019-05-04 15:32 | Nephrology Progress Note ---
Assessment/Plan Problem List: (1) Perforated abdominal viscus (2) Hypokalemia (3) Hypomagnesemia (4) Diabetes mellitus (5) Anemia Assessment WBC rising Post lap on 03/10 Low K Low Phos Low Mag Anemia DM h/o HTN Plan mag supplement needed Had an episode of weakness and presyncope, was in icu no on Tele now hemodynamics and neuro is baseline today's labs pending 05/01 change all to orals Mag and K and Phos IV as needed Keep BP and BS in check per orders DC planning Subjective ROS Limited/Unobtainable: No Objective Objective Last 24 Hour Vital Signs Date Time Temp Pulse Resp B/P (MAP) Pulse Ox O2 Delivery O2 Flow Rate FiO2 05/04/19 12:00 98.0 96 20 125/76 (92) 95 05/04/19 08:50 Room Air 05/04/19 08:00 98.3 88 20 123/68 (86) 95 05/04/19 04:00 97.0 78 18 118/78 (91) 95 05/04/19 00:00 97.3 78 18 119/78 (92) 95 05/03/19 21:00 Room Air 05/03/19 20:00 98.3 100 18 134/79 (97) 98 05/03/19 16:00 99.1 101 20 119/73 (88) 97 Intake and Output 05/03/19 05/04/19 19:00 07:00 Intake Total 1203.566 ml 92.530 ml Balance 1203.566 ml 92.530 ml Intake Oral 600 ml IV Total 603.566 ml 92.530 ml # Voids 4 Laboratory Tests 05/04/19 04:00: Prothrombin Time 21.5H, Prothromb Time International Ratio 2.1H, Activated Partial Thromboplast Time 103H 05/04/19 13:15: Activated Partial Thromboplast Time 29 Height (Feet): 5 Height (Inches): 0.00 Weight (Pounds): 102 General Appearance: no apparent distress Objective no change El Clark MD May 04, 2019 15:32
[2019-05-04 16:00] VITALS: BP 114/78
[2019-05-04] MEDS ORDERED: Warfarin Sodium 1mg ORAL SCH (17:00)
--- NOTE | 2019-05-04 17:52 | NUR ---
NURSE NOTES: PATIENT IS SELF PAY. CALLED PHARMACY AND GOT A BREAKDOWN OF THE PRESCRIPTION COSTS TO GIVE TO THE FAMILY. SEBASTIAN FROM GAVE ME A LIST OF FREE CLINICS THAT I HAVE INCLUDED IN HER DISCHARGE PAPERWORK. PATIENT ALSO HAS [facility] FOR H&P, VENOUS DUPLEX RESULT, LABS AND THE LAST DOCTORS NOTE SO THAT SHE CAN PROVIDE THAT INFORMATION TO A FUTURE CLINIC. I SPOKE TO THE DAUGHTER BRIEFLY EARLIER TO SEE IF PATIENT REQUIRED PRESCRIPTION FOR INSULIN BUT I DON'T THINK THE DAUGHTER UNDERSTOOD, WILL SPEAK TO THE FAMILY REGARDING INSULIN WHEN THEY ARRIVE TO CUSTOMER SERVICE VOICE THE PATIENT. AYESHA THE NBA PLAYER ALSO SPOKE TO THE DAUGHTER TO INFORM HER OF THE DISCHARGE. IF FAMILY DO NOT ARRIVE BEFORE SHIFT CHANGE, WILL ENDORSE TO COLLEGE SPORTS COACH RN TO ENQUIRE ABOUT THE INSULIN PRESCRIPTION.
--- NOTE | 2019-05-04 19:06 | NUR ---
NURSE NOTES: PRESCRIPTIONS GIVEN TO PATIENTS SON'S EXPLAINED THE IMPORTANCE OF THE WARFARIN MEDICATION AND THE NEED TO FOLLOW UP WITH A PHYSICIAN, GAVE THEM A LIST OF FREE CLINICS IN THE AREA. THE WARFARIN PRESCRIPTION DOES NOT HAVE [facility]'S PHYSIAL SIGNATURE, TOLD THEM TO TRY AND FILL IT AT THEIR NORMAL PHARMACY TONIGHT [facility] IS CLOSED. TOLD THEM IF THEY COULD NOT FILL IT WITHOUT THE SIGNATURE, TO CALL [facility] TOMORROW AND PICK IT UP FROM THERE THEY HAVE THE FAXED PRESCRIPTION WITH DR BROOKE'S ELECTRONIC SIGNATURE. I HAD THE SON SIGN A COPY OF THE PRESCRIPTION TO SHOW THAT I GAVE THE PRESCRIPTION WITH THE NUMBER OF [facility].
--- NOTE | 2019-05-04 19:47 | NUR ---
NURSE NOTES: PATIENT DISCHARGED, LEFT WITH HER SONS. PATIENT ALERT AND ORIENTED AND ABLE TO MAKE NEEDS KNOWN. IV REMOVED, NO BLEEDING OR HEMATOMA. PATIENT LEFT STABLE VIA WHEELCHAIR. PATIENT'S SON SIGNED THE DISCHARGE FORM. ID BRACELET REMOVED. PATIENT EDUCATION PROVIDED IN TUNIS[place] AND [place]PALI VIA [facility]TS ON ANTICOAGULANT THERAPY, DIET EDUCATION, MEDICATION INFORMATION. SPOKE TO SONS TO EXPLAIN IMPORTANCE OF AVOIDING HIGH DOSES OF VITAMIN K RICH FOODS SUCH LEAFY GREEN VEGETABLES, EXPLAINED IMPORTANCE OF FOLLOWING UP WITH LABWORK TO MONITOR COAGULATION STUDIES. EXPLAINED TO LOOKOUT FOR BLEEDING DISORDERS SUCH BLOOD IN THE STOOLS, BLEEDING GUMS ETC AND SIGNS OF DVT. EXPLAINED THE IMPORTANCE OF FILLING PRESCRIPTIONS ESPECIALLY REGARDING THE COUMADIN. TOLD FAMILY TO FOLLOW UP WITH ONE OF THE FREE CLINICS ON THE LIST PROVIDED.
--- NOTE | 2019-05-06 08:46 | Discharge Summary ---
Discharge Summary Discharge Summary _ DATE OF ADMISSION: 03/10/2019 DATE OF DISCHARGE: 05/04/2019 DISCHARGED BY: Dr. Silva REASON FOR ADMISSION: 84 years old female with past medical history of diabetes mellitus, hypertension , presented with sudden onset of acute abdominal pain associated with nausea and vomiting earlier that morning prior to presentation to ED. Pain was located in upper abdomen , was severe and constant. She denied chest pain or shortness of breath. She denied dysuria or hematuria. Upon evaluation patient had leukocytosis , stable hemoglobin and hematocrit. Potassium 3.1. BUN 49, creatinine 1.3. Glucose 353. AST 17 , ALT 94, lipase 80. Troponin was negative. EKG revealed sinus rhythm , no acute ischemic changes. CT of the abdomen and pelvis revealed free intraperitoneal gas. Suspicious for perforated gastric ulcer. Perforated descending colon diverticulitis was also possible but deemed less likely. Free intraperitoneal fluid. Fatty liver. Basilar pulmonary parenchymal ground-glass opacities. Surgeon was urgently consulted , patient started on broad-spectrum antibiotic and PPI and admitted to ICU for surgical intervention. CONSULTANTS: pulmonary Dr Groge MENENDEZ specialist Dr. Stallworth electrician's helper Dr. Clark surgery [facility] COURSE: Patient was kept n.p.o. , on IV fluids and empiric antibiotic . Patient urgently , the same day, went to operating room for perforated abdominal viscus , likely gastric perforation, based on the CT findings. Patient subsequently undergone on 03/10 exploratory laparotomy with abdominal washout , partial omentectomy and Shane patch for repair of perforated prepyloric ulcer. Postoperatively patient remained on the ventilator and was transferred to ICU. NG tube was inserted . Patient started on weaning protocol. Ventilator support and nebulizing treatment with bronchodilator treatment provided . Patient was able to be extubated on 03/12. Supplemental oxygen and bronchodilator treatment were on board as needed. Wound care provided. Patient completed empiric antibiotics. Patient was followed up with [facility] and upper GI series. Patient subsequently started on diet and was able to tolerate it. Initial venous duplex revealed no evidence of acute DVT. DVT prophylaxis provided. Mobilization was encouraged. Fazal were removed. Patient noted to be confused. CT of the head revealed chronic and age-related changes, but was negative for acute intracranial bleeding or mass-effect. Patient noted to have leukocytosis and fever. Patient subsequently undergone CT of the abdomen and pelvis , which revealed markedly thickened and fluid-filled endometrium. 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 Complex multilobulated fluid collection with areas of enhancing soft tissue in the right adnexal region measuring 5.5 x 7 x 3.9 cm. Evidence of interim repair of previously demonstrated perforated gastric ulcer , no evidence of contrast leakage ,no abnormal fluid collection . Colonic diverticulosis . Cardiomegaly. Abdominal pelvic and transvaginal ultrasound revealed partial septated uterus, distended fluid-filled endometrium , right adnexal region irregular fluid collection, corresponding to reported on recent CT scan. Patient was on antibiotic as per ID recommendation . Blood cultures were negative. Stool for C. difficile was negative. Leukocytosis and fever resolved. Intra-abdominal abscess of unclear source: postoperative complication versus gynecological or sigmoid origin Patient likely had sepsis secondary to intra-abdominal abscess as per ID specialist. Abdominal fluid collection was unable to be drained via interventional radiology. Per surgeon, surgical drainage will carry a high risk of morbidity and mortality, given her age and medical condition . Family aware of it. Patient completed total 6 weeks of antibiotics. No fevers, no leucocytosis. Abdominal exam was benign. Patient had another venous duplex on 04/14 , which revealed acute thrombus in the poplitea to calf in the left lower extremity. Patient started on anticoagulation with heparin drip with bridge to Coumadin to rech therapurtic INR CT angiogram of the head revealed no central occlusion related to the t[place] of [place] . CT angiogram of the neck was essentially negative . Insurance Representative followed. Renal parameters and electrolytes were closely monitored. Electrolytes corrected as needed/potassium, magnesium, phosphorus . Acute renal failure resolved. Prior to discharge BUN from 49 down to 13 and creatinine from initial 1.3 down to 0.6. Hemoglobin and hematocrit were closely monitored with goal to keep hemoglobin above 7. Hemoglobin and hematocrit remained at the baseline. Prior to discharge hemoglobin 10.1, hematocrit 31.9. Stool for occult blood was negative. Anemia work-up revealed evidence of anemia of chronic disease. LFT were closely monitored. Initially elevated LFT were likely due to perforated viscus and resolved. Blood sugar was managed with sliding scale of insulin. Hemoglobin A1c 10.2 , clearly not at goal. Patient will need further optimization of anti-glycemic regimen as outpatient. Blood pressure remained stable. GI prophylaxis provided. Upon discharge INR 2.1 . Heparin drip discontinued , and patient was discharged on Coumadin. curing room worker seen the patient and her family and had a detailed conversation with them regarding further community resources available. Community care clinic list provided to the patient. Prescriptions were faxed to [facility] pharmacy to obtain [id number] cost. Patient had no insurance for follow-up , and licensed master social worker therefore was unable to arrange follow-up in appointment. Patient will need to be screened in clinic for financial responsibility and then will be seen by the medical doctor. curing room worker recommended patient to have copy of medical records to present during the first encounter.with health care provider. Patient clinically stabilized and was ready fro discharge home . FINAL DIAGNOSES: Peritonitis Perforated abdominal viscus/ perforated prepyloric ulcer Status post exploratory laparotomy with repair of perforated prepyloric ulcer Acute respiratory failure, status post extubation Acute encephalopathy- resolved Acute kidney injury -resolved completed 6 wks of antibiotics Acute DVT left lower extremity , popliteal to calf Hypertension Diabetes mellitus type 2 DISCHARGE MEDICATIONS: See Medication Reconciliation list. DISCHARGE INSTRUCTIONS: Patient was discharged home with recommendation to follow-up with the community clinic to monitor INR as well as to establish primary care provider. I have been assigned to dictate discharge summary for this account. I was not involved in the patient's management. Ashley Herrera NP May 06, 2019 08:46
--- NOTE | 2019-05-06 17:30 | Electroencephalogram ---
DATE OF PROCEDURE: 05/01/2019 REQUESTING PHYSICIAN: Marcos Silva M.D. READING PHYSICIAN: Toan Shaver M.D. PROCEDURE PERFORMED: Electroencephalogram. HISTORY: This EEG was performed on an 84-year-old lady with history of an alteration in mental state and questionable seizures. The purpose of this EEG was to evaluate the patient for the degree and type of cerebral dysfunction. TECHNICAL NOTE: This EEG was performed on a [employer] computer Digital Acquisition Unit with electrodes placed on the scalp according to the International 10-20 system. [id number] and [id number] montages were used. The EEG was technically satisfactory and was performed in the awake, drowsy, and sleep states. OBSERVATION: In the best awake state, the background activity consisted of 9-9.5 Hz, posteriorly predominant, well-developed, alpha waveforms, which attenuated on eye opening. Drowsiness was characterized by dissolution of the alpha rhythm and the appearance of slow frequencies in the 5-6 Hz theta range. Stage II sleep was characterized by further slowing of the background in the delta and theta range, the presence of vertex waves, and 14 Hz sleep spindles. No focal abnormalities or epileptiform discharges were seen. IMPRESSION: Normal awake, drowsy, and stage II sleep EEG. COMMENT: A normal EEG does not rule out a seizure disorder. Toan Shaver M.D., M.S.P.H. DR: Akbar JOB#: [id number] KEYSHA
== END 2019-05-04 19:35 | disposition home or self-care (01) | DRG 326 ==
LOC: EMR 10:05 → ICU 12:03 → EDBEDREQ 13:06 → 3E 03-13 16:59 → ICU 04-30 16:40 → 2E 05-01 16:00 → 3E 05-02 14:41
PROC: 0DU707Z Supplement Stomach, Pylorus with Autologous Tissue Substitute, Open Approach (ICD-10-PCS; principal; 2019-03-10 13:30)
PROC: 0DBU0ZZ Excision of Omentum, Open Approach (ICD-10-PCS; principal; 2019-03-10 13:30)
DX: K25.1 Acute gastric ulcer with perforation (principal); K65.1 Peritoneal abscess; A41.9 Sepsis, unspecified organism; R65.21 Severe sepsis with septic shock; J96.00 Acute respiratory failure, unspecified whether with hypoxia or hypercapnia; N17.9 Acute kidney failure, unspecified; G93.40 Encephalopathy, unspecified; I82.432 Acute embolism and thrombosis of left popliteal vein; I82.452 Acute embolism and thrombosis of left peroneal vein; I10 Essential (primary) hypertension; E11.9 Type 2 diabetes mellitus without complications; D64.9 Anemia, unspecified; E87.6 Hypokalemia; E83.42 Hypomagnesemia; R55 Syncope and collapse; Q51.20 Other doubling of uterus, unspecified
CPT/HCPCS: 36415; 36600; 70450; 70460; 71045; 74018; 74176; 74177; 74247; 76830; 76856; 80048; 80053; 80061; 80076; 81001; 81003; 82150; 82248; 82270; 82550; 82607; 82728; 82746; 82803; 82962; 82977; 83036; 83540; 83550; 83690; 83735; 83880; 84100; 84484; 84550; 85007; 85025; 85610; 85651; 85730; 86140; 86850; 86900; 86901; 87040; 87081; 87324; 93005; 93306; 93970; 94002; 94003; 94150; 94664; 95819; 96361; 96365; 96366; 96368; 96375; 99291; C9399; J1815; J2250; J2405; J2710; J8499; S5561